=== PATIENT | male | born 1945 | race Caucasian/White ===

== ENCOUNTER 2019-06-05 19:55 | Observation (INO) | payer MEDICARE, MEDICAID, SELFPAY ==
[2019-06-05] VITALS (9 sets, daily range): BP systolic 128–157; BP diastolic 84–106; PULSE 72–150; RESP 18–26; TEMP 37; O2SAT 90–100; BMI 25.8
--- NOTE | 2019-06-05 19:58 | ED_ITS ---
Entered by Barbara Dillard, acting as scribe for Tania Buck MD HPI - SOB/Dyspnea General: Chief Complaint: Shortness of Breath/Dyspnea Stated Complaint: SOB/ HERNIA Time Seen by Provider: 06/05/19 19:57 Source: patient and EMS Mode of arrival: EMS History of Present Illness: HPI Narrative: 73 y/o male presents to the ED with complaint of SOB. Pt states he has a hx of COPD and is a current smoker. He has CPAP and home O2 that he is supposed to wear at night, but he has not been to see a physician for a while; his previous PCP retired. Pt is also complaint of abdominal pain. Upon exam, pt has a large abd hernia to the left of his umbilicus. MD elicited complaint: shortness of breath Pertinent past history: COPD Timing: constant Severity: similar to previous episodes Exacerbating factors: coughing and deep breaths Known history of: COPD Associated symptoms: Reports abdominal pain; Deny chest pain, fever(s), nausea or vomiting Related Data: Home oxygen amount: as needed at night Review of Systems Const: Denies: fever, chills, body aches or change in appetite Eyes: Denies: blurry vision or eye discomfort ENMT: Denies: throat pain or dental pain Card: Denies: chest pain Resp: Reports: shortness of breath GI: Reports: abdominal pain; Denies: nausea, vomiting or diarrhea : Denies: painful urination Musc: Denies: neck pain or back pain Skin/Breast: Denies: rash Neuro: Denies: headache Psych: Denies: depression Juan C/Lymph: Denies: easy bruising All/Imm: Denies: hives [facility] ED PFSH: Medical History (Updated 06/05/19 @ 23:10 by Tania Buck MD) A-fib Back pain COPD (chronic obstructive pulmonary disease) Coronary artery disease GERD (gastroesophageal reflux disease) Hypertension Insomnia Surgical History (Updated 06/05/19 @ 23:05 by Michael Rojas MD) H/O laminectomy History of carpal tunnel surgery History of cholecystectomy S/P laparoscopic appendectomy Family History (Updated 06/05/19 @ 23:05 by Michael Rojas MD) Other Hypertension Social History (Updated 06/05/19 @ 23:06 by Michael Rojas MD) Smoking and tobacco status: current every day smoker Alcohol intake: never Substance/Drug Use: never Lives independently: Yes Housing: House Physical Exam Const: COMMON NORMALS: oriented x3 HENMT: COMMON NORMALS: normocephalic and head/scalp atraumatic HEAD & SCALP: normocephalic and atraumatic Eye: COMMON NORMALS: PERRL and EOMs intact bilaterally PUPIL: Yes PERRL Neck/C-Spine: COMMON NORMALS: full ROM and supple Chest: COMMONS NORMALS: inspection of chest normal and palpation of chest normal Resp: COMMON NORMALS: no retractions and no use of accessory muscles AUSCULTATION: wheezes (diffuse) Cardio: COMMON NORMALS: no murmurs RATE: tachycardic RHYTHM: abnormal rhythm GI: COMMON NORMALS: soft to palpation PALPATION: Yes soft, Yes tender and Yes hernia (reducible ) Extremity: COMMON NORMALS: normal to inspection and full ROM Neuro: COMMON NORMALS: oriented x3, moves all extremities and no focal motor deficits Psych: COMMON NORMALS: mental status grossly normal, thought process normal and cooperative THOUGHT PROCESS: normal thought process Skin: COMMON NORMALS: no rashes or lesions noted and no wounds GENERAL SKIN EXAM: no rashes or lesions noted Course Vital Signs: Vital signs: Vital Signs Temperature 98.6 F 06/05/19 19:56 Pulse Rate 75 06/05/19 21:00 Respiratory Rate 20 H 06/05/19 21:30 Blood Pressure 128/86 06/05/19 21:00 Pulse Oximetry 100 06/05/19 21:00 MDM - SOB/Dyspnea MDM Narrative: Medical decision making narrative: Robert presents here with COPD exacerbation. He is improved after breathing treatments but still requires 2 L of oxygen. Patient was in A. fib with RVR when he arrived here likely from breathing treatments. Patient converted back to normal sinus rhythm with Cardizem. I spoke to hospitalist and will admit for COPD exacerbation. Patient has no signs of pneumonia here. He does have a rather large hernia but has no signs of incarceration. Patient has no signs small bowel obstruction. Lab Data: Labs: Lab Results 06/05/19 06/05/19 Range/Units 20:08 20:08 WBC 13.3 H (4.0-10.0) 10^3/ uL RBC 3.92 L (4.1-5.3) 10^6/u L Hgb 13.6 (11.7-16.6) g/dL Hct 40.6 L (42.0-52.0) % MCV 103.6 H (80-94) fL MCH 34.7 H (28.0-34.0) pg MCHC 33.5 (30.0-36.0) g/dL RDW 14.5 (12.1-15.1) % Plt Count 180 (130-400) 10^3/c mm MPV 11.2 H (7.4-10.4) fL Neut % (Auto) 79.0 % Lymph % (Auto) 13.2 % Mineral % (Auto) 6.6 % Eos % (Auto) 0.5 % Baso % (Auto) 0.4 % Neut # (Auto) 10.5 H (1.8-7.7) 10^3/u L Lymph # (Auto) 1.8 (0.8-4.8) 10^3/u L Mineral # (Auto) 0.9 (0.2-0.9) 10^3/u L Eos # (Auto) 0.1 (0.0-0.8) 10^3/u L Baso # (Auto) 0.1 (0.0-0.1) 10^3/u L Nucleated RBC % (a uto) 0 % Nucleated RBCs # 0.0 /100WBC Sodium 134 L (136-145) mmol/L Potassium 4.2 (3.5-5.1) mmol/L Chloride 98 (98-107) mmol/L Carbon Dioxide 25 (22-29) mmol/L Anion Gap 15.2 (5-19) BUN 19 (8-23) mg/dL Creatinine 0.8 (0.7-1.2) mg/dL Glucose 162 H (65-115) mg/dL Calcium 8.8 (8.5-10.5) mg/dL Total Bilirubin 0.7 (0.15-1.2) mg/dL AST 158 H (0-40) U/L ALT 140 H (0-41) U/L Alkaline Phosphata se 160 H (40-130) IU/L Total Protein 8.4 (6.6-8.7) g/dL Albumin 2.6 L (3.5-5.2) g/dL Globulin 5.8 H (1.3-4.6) g/dL Imaging Data^: CXR: Attestation: I personally reviewed and interpreted this imaging study as follows: My impression: no acute abnormality EKG Data^: EKG 1: Attestation: I personally reviewed and interpreted this EKG as follows: EKG Interpretation Date: 06/05/19 EKG interpretation time: 20:12 Interpretation: afib hr [address] or t wave abnormalities EKG 2: Attestation: I personally reviewed and interpreted this EKG as follows: EKG Interpretation Date: 06/05/19 EKG interpretation time: 23:13 Interpretation: nsr hr [address] or t wave abnormalities qrs 86 qtc 422 Discharge Plan Discharge Patient Disposition: Admitted As Inpatient Clinical Impression: Acute exacerbation of chronic obstructive airways disease Atrial fibrillation Qualifiers: Atrial fibrillation type: unspecified Qualified Code(s): I48.91 - Unspecified atrial fibrillation Condition: Stable Referrals: Jno Lange MD [Family Provider] - Coding Level of Care Code ED [facility] F[facility] Specialist for Chg Fwd Exam Comprehensive The documentation recorded by the Nishant hughes Ashley, accurately reflects the service I personally performed and the decisions made by , Tania Buck MD Jun 05, 2019 19:55
--- NOTE | 2019-06-05 20:02 | XR_ITS ---
WS: [id number] XR chest 1V portable [id number] REASON FOR EXAM: cough FINDINGS: Elevation of the right hemidiaphragm similar to previous exam of May 28, 2017. The heart and mediastinal interfaces were normal. The lung quintana are adequately aerated. No pneumonia, pleural effusion, pulmonary edema, The hilum is and apices are normal. Left and right shoulder show degenerate changes. XR/XR chest 1V portable [id number] IMPRESSION: Negative chest for active pathology.
--- NOTE | 2019-06-05 20:02 | ECG_ITS ---
Measurements Intervals [place] Rate: 157 P: CO: 0 QRS: 58 QRSD: 86 T: 65 QT: 272 QTc: 441 ATRIAL FIBRILLATION WITH RAPID VENTRICULAR RESPONSE NONSPECIFIC ST & T-WAVE ABNORMALITY Compared to ECG 05/26/2017 20:49:57 T-wave abnormality now present Sinus rhythm no longer present Left-axis deviation no longer present Incomplete right bundle-branch block no longer present Electronically Signed On 06-06-2019 15:31:53 SUPERVISING [employer] by Maggie Squires M.D. [email or web address]
[2019-06-05 20:15] LABS: Basophils # 0.1 10^3/uL (0.0-0.1); Basophils % 0.4 %; Eosinophils # 0.1 10^3/uL (0.0-0.8); Eosinophils % 0.5 %; Hematocrit 40.6 % (42.0-52.0); Hemoglobin 13.6 g/dL (11.7-16.6); Lymphocytes # 1.8 10^3/uL (0.8-4.8); Lymphocytes % 13.2 %; Mean Corpuscular HGB Conc 33.5 g/dL (30.0-36.0); Mean Corpuscular Hemoglobin 34.7 pg (28.0-34.0); Mean Corpuscular Volume 103.6 fL (80-94); Mean Platelet Volume 11.2 fL (7.4-10.4); Monocytes # 0.9 10^3/uL (0.2-0.9); Monocytes % 6.6 %; Neutrophils # 10.5 10^3/uL (1.8-7.7); Nucleated Red Blood Cells % 0 %; Platelet Count 180 10^3/cmm (130-400); Red Blood Count 3.92 10^6/uL (4.1-5.3); Red Cell Distribution Width 14.5 % (12.1-15.1); White Blood Count 13.3 10^3/uL (4.0-10.0)
[2019-06-05] MEDS: ondansetron 2 mg/ML SDV 2 mL 4 MG IVP (20:16)
[2019-06-05] MEDS: morphine 4 mg/mL SDV 1 mL IVP ×2 (20:16→21:30)
[2019-06-05] MEDS: sodium chloride 0.9% 1,000 ML 999 ML IV (20:17)
[2019-06-05 20:30] LABS: Alanine Aminotransferase 140 U/L (0-41); Albumin Level 2.6 g/dL (3.5-5.2); Alkaline Phosphatase 160 IU/L (40-130); Anion Gap 15.2 (5-19); Aspartate Amino Transferase 158 U/L (0-40); Blood Urea Nitrogen 19 mg/dL (8-23); Calcium 8.8 mg/dL (8.5-10.5); Carbon Dioxide 25 mmol/L (22-29); Chloride 98 mmol/L (98-107); Globulin 5.8 g/dL (1.3-4.6); Glucose 162 mg/dL (65-115); Potassium 4.2 mmol/L (3.5-5.1); Sodium 134 mmol/L (136-145); Total Bilirubin 0.7 mg/dL (0.15-1.2); Total Protein 8.4 g/dL (6.6-8.7)
--- NOTE | 2019-06-05 21:26 | CTR_ITS ---
PROCEDURE INFORMATION: Exam: CT Abdomen And Pelvis With Contrast Exam date and time: 06/05/2019 9:31 PM Age: 73 years old Clinical indication: Other: Hernia; Abdominal pain; Prior surgery; Surgery type: Appy, hip, back; Additional info: Abd pain TECHNIQUE: Imaging protocol: Computed tomography of the abdomen and pelvis with intravenous contrast. Total DLP: 1090.03 mGy-cm Radiation optimization: All CT scans at this facility use at least one of these dose optimization techniques: automated exposure control; mA and/or kV adjustment per patient size (includes targeted exams where dose is matched to clinical indication); or iterative reconstruction. Contrast material: OMNI 300; Contrast volume: 95 ml; Contrast route: IV; COMPARISON: CT abdomen pelvis w con* [id number] 03/26/2015 2:19 PM FINDINGS: Lungs: There is a background of centrilobular emphysema. Patchy opacities are seen in the right posterior costophrenic recess likely representing atelectasis and/or parenchymal and pleural scarring. A superimposed right basilar infiltrate cannot be entirely excluded. Liver: There is a 9 mm hypoattenuation lesions seen in the left hepatic lobe laterally and a 6 mm hypoattenuation lesions seen in the posterior segment of the right hepatic lobe likely representing small cysts or hemangiomas. Gallbladder and bile ducts: Status post cholecystectomy. Common bile duct measures 11 mm in its midportion tapering to normal caliber within the pancreas. Pancreas: Normal. No ductal dilation. Spleen: Normal. No splenomegaly. Adrenals: There is a left adrenal mass present measuring 3.9 x 2.4 x 4.2 cm. This appears stable compared with 03/26/2015. Kidneys and ureters: There are 2 tiny hypoattenuation cystic lesions seen within the right kidney, the largest measuring 7 mm anteriorly. A more prominent cyst is seen on the posterior aspect of the left kidney measuring 2.5 cm. These likely represent simple cysts. Stomach and bowel: There is a large left paraumbilical hernia containing a loop of non incarcerated small bowel. However, there is some mild dilatation of the small bowel and a partial small bowel obstruction cannot be entirely excluded. Appendix: Status post appendectomy. Intraperitoneal space: Unremarkable. No free air. No significant fluid collection. Vasculature: Calcifications are seen within the thoracic and abdominal aorta, iliac and femoral arteries bilaterally. Lymph nodes: There are small retroperitoneal lymph nodes seen that appear below CT criteria for lymphadenopathy. Bladder: Unremarkable as visualized. Reproductive: Unremarkable as visualized. Bones/joints: Status post bipolar right hip replacement. Diffuse loss of disc height is seen within the thoracolumbar spine compatible with degenerative disc disease. Vacuum disc phenomena extends from L1 through L4. The patient is status post PLIF at the L4-L5 level. Prominent anterior osteophytes are seen extending from L1 through S1 as well. Soft tissues: Unremarkable. CT/CT abdomen pelvis w con* [id number] IMPRESSION: 1. There is a prominent left paraumbilical hernia containing a loop of small bowel. There is some dilatation of the small bowel and a partial small bowel obstruction cannot be excluded. 2. Stable left adrenal mass compared with 03/26/2015. No follow-up is needed. 3. Bilateral simple appearing renal cysts, the largest seen on the left measuring 2.5 cm. No further workup needed. 4. There are small retroperitoneal lymph nodes seen that appear below CT criteria for lymphadenopathy. 5. Background of centrilobular emphysema. Opacity seen in the right posterior costophrenic recess may represent atelectasis or parenchymal or pleural scarring although a superimposed basilar infiltrate cannot be entirely excluded. Radiation Dose CTDIVOL = (mGy): DLP = 1090.03 (mGy-cm)
--- NOTE | 2019-06-05 21:31 | PC.PHAR ---
PT STATES HE BROUGHT IN THE BOTTLES OF MEDICATIONS HE TAKES-PT STATES HE THINKS THERE IS ANOTHER MEDICATION FOR HIS HEART/BP BUT CANT REMEMBER WHAT IT IS. SOME OF THE PTS BOTTLES WERE DATES FROM LAST YEAR. [facility] WAS CLOSED SO NO WAY TO VERIFY MEDICATIONS -NO MEDS PULLED UP FROM THE EXTERNAL MED HISTORY.
[2019-06-05] MEDS: iohexol 300 mg/mL 100 mL Btl 95 ML IV (21:50)
--- NOTE | 2019-06-05 22:57 | ECG_ITS ---
Measurements Intervals [place] Rate: 72 P: 23 NC: 184 QRS: 40 QRSD: 86 T: 67 QT: 398 QTc: 437 SINUS RHYTHM Compared to ECG 05/26/2017 20:49:57 Left-axis deviation no longer present Incomplete right bundle-branch block no longer present Electronically Signed On 06-06-2019 15:28:20 [employer]OR [employer] CHASSIS INSPECTOR by Maggie Squires M.D. [email or web address]
--- NOTE | 2019-06-05 23:02 | P.HP_ITS ---
Providers/Chief Complaint Chief Complaint: SOB/ HERNIA History of Present Illness Robert Torres is a 73 year old male who has a history of noncompliance, active smoker, COPD, paraumbilical hernia here in with chief complaint of shortness of breath and abdominal pain. Patient is stating that he has not followed up with Dr. Gomez or his PCP he does not take any medications at home. He smoking half a pack every day. He was in his usual state of health i.e. able to walk using a cane, regular bowel movements, no nausea, vomiting, flulike symptoms until 3 to 4 weeks ago when he started experiencing shortness of breath which has been getting gradually worsening, no it has limited his ambulation in his home he cannot even walk from 1 room to another without getting short of breath, he does not use oxygen at home, shortness of breath is mostly exertional, he also showing some orthopnea and PND, his legs are little bit swollen as well. He does not watch his diet. He is denying previous history of CHF. He is denying use of amlodipine however it is in his previous records. He is also endorsing chest pain on exertion which happens on the left side comes and goes spontaneously. He has not seen Dr. Gomez for his periumbilical hernia, he is saying that swelling size is same but now it hurts sometimes, he has not noticed any fever, jaundice, excruciating abdominal pain, nausea or vomiting but his stool color is pale. Diagnostics in ER showed Atrial fibrillation secondary to DuoNeb treatment given by EMS which resolved with 1 dose of Cardizem currently his heart rate is in 70s, blood pressure stable, He was hypoxic to 90% on room air did well on 2 L nasal cannula Diagnostics are showing possibility for partial obstruction of small bowel Liver enzymes are abnormal with high alkaline phosphatase with normal bilirubin, In ER he has received morphine 4 mg, Zofran, 1 L normal saline, diltiazem 20 mg, Review of Systems Const: Reports: body aches and fatigue; Denies: fever or chills Eyes: Denies: change in vision ENMT: Denies: throat pain Card: Reports: chest pain, irregular heart rhythm, swelling of feet/ankles, shortness of breath on exertion and shortness of breath when lying down; Denies: palpitations Resp: Reports: shortness of breath and non-productive cough GI: Reports: abdominal pain, feeling full early and white/light colored stool; Denies: nausea, vomiting, change in bowel habits or blood in stool : Denies: flank pain Musc: Denies: neck pain Skin/Breast: Denies: rash Neuro: Denies: headache Psych: Denies: anxiety Endo: Denies: excessive urination Juan C/Lymph: Denies: easy bruising All/Imm: Denies: hives Medications/Allergies Home Medications Medication Instructions Recorded Confirmed Last Taken Type Tylenol 1 tab PO PRN 06/05/19 06/05/19 Unknown History albuterol sulfate [ProAir HFA] See Rx Instructions .ROUTE .COMPLEX 06/05/19 06/05/19 Unknown History amlodipine [Norvasc] 5 mg PO BID 06/05/19 06/05/19 Unknown History aspirin [Aspir-81] 81 mg PO DAILY 06/05/19 06/05/19 Unknown History fluticasone propion-salmeterol 2 puff INHALATION BID 06/05/19 06/05/19 Unknown History [Advair Diskus] ibuprofen 1 tab PO PRN 06/05/19 06/05/19 Unknown History nitroglycerin [Nitrostat] 0.4 mg SUBLINGUAL Q5M PRN 06/05/19 06/05/19 Unknown History tiotropium bromide [Spiriva 2 puff INHALATION BID 06/05/19 06/05/19 Unknown History Respimat] trazodone 50 - 100 mg PO BEDTIME PRN 06/05/19 06/05/19 Unknown History Allergies Allergy/AdvReac Type Severity Reaction Status Date / Time No Known Allergies Allergy Verified 06/05/19 20:03 PFSH Acute PFSH: Medical History (Updated 06/05/19 @ 23:10 by Tania Buck MD) A-fib Back pain COPD (chronic obstructive pulmonary disease) Coronary artery disease GERD (gastroesophageal reflux disease) Hypertension Insomnia Surgical History (Updated 06/05/19 @ 23:05 by Michael Rojas MD) H/O laminectomy History of carpal tunnel surgery History of cholecystectomy S/P laparoscopic appendectomy Family History (Updated 06/05/19 @ 23:05 by Michael Rojas MD) Other Hypertension Social History (Updated 06/05/19 @ 23:06 by Michael Rojas MD) Smoking and tobacco status: current every day smoker Alcohol intake: never Substance/Drug Use: never Lives independently: Yes Housing: House Vitals/I&O/Wt Last Vital Signs Temp 98.6 F 06/05/19 19:56 Pulse 75 06/05/19 21:00 Resp 20 H 06/05/19 21:30 BP 128/86 06/05/19 21:00 Pulse Ox 100 06/05/19 21:00 06/05/19 06/05/19 06/06/19 14:59 22:59 06:59 Intake Total 1000 / 1000 Balance 1000 / 1000 Weight last 48 hrs Weight 81.647 kg Physical Exam Narrative: EXAM NARRATIVE: This is an elderly male with unkempt appearance, po or hygiene Sitting comfortable in his bed saturating well on 2 L nasal cannula Variable S1-S2, positive JVD with mild trace edema bilateral lower extremities Lungs auscultation reveals expiratory wheezing bilaterally with adequate breath sounds No active respiratory distress Abdomen soft nontender periumbilical hernia which is reproducible no excruciating pain on palpation, on auscultation it reveals tinkling sounds Sclerae nonicteric but it was examined under room light Tongue color is normal Lower extremity trace edema 1+ bilaterally Appropriate mood and affect Data : 06/05/19 20:08 06/05/19 20:08 A&P Assessment and plan (1) Acute exacerbation of chronic obstructive airways disease: Status: Acute Code(s): J44.1 - Chronic obstructive pulmonary disease with (acute) exacerbation (2) Atrial fibrillation: Status: Acute Qualifiers: Atrial fibrillation type: unspecified Qualified Code(s): I48.91 - Unspecified atrial fibrillation Code(s): I48.91 - Unspecified atrial fibrillation Additional A&P Information Acute exacerbation of COPD secondary to smoking We will use Xopenex and ipratropium to avoid tachyarrhythmia Prednisone 40 mg Patient was counseled on quitting smoking, Nicotine patch Would use azithromycin, pneumonia severity index very low no need of sputum or blood culture Considering positive JVD and bilateral lower extremity edema I will check BNP, he does not carry previous history of CHF Atrial fibrillation: Not on anticoagulation due to noncompliance I would start him on Cardizem and Eliquis Abnormal transaminases with high alkaline phosphatase No fever, jaundice positive abdominal pain which is around her umbilical region Close monitoring for any signs and symptoms for cholangitis Patient has light-colored stool We will check for hepatitis panel paraUmbilical hernia CT scan show some concerns for partial obstruction however clinically patient does not show such picture Abdomen is soft, hernia is reproducible, nontender No active signs of strangulation or gangrene Closely monitor with serial exam, He was supposed to follow-up with Dr. Gomez on outpatient settings Pending consider this consult during his stay in the hospital because he has a history of noncompliance and not following up with the physicians Active smoker: Smokes half pack a day, nicotine patch Hypodense lesion 9 mm on liver Close monitoring with ultrasound every 6 months Patient is endorsing weight loss Full code Cardiac diet DVT prophylaxis: Currently he is on Eliquis Attestations Medical Necessity Statement*: Anticipating discharge less than 48 hours if his breathing gets better Time Spent in Patient Care: 45 Coding Level of Care Code Acute Supervisor Cutting And Sewing Room for Chg Fwd Diagnoses Acute exacerbation of chronic obstructive airways disease J44.1 Atrial fibrillation I48.91 Atrial fibrillation type: unspecified
--- NOTE | 2019-06-05 23:53 | PC.NURSE ---
Called report to Ary on Med/Surg
[2019-06-06] VITALS (19 sets, daily range): BP systolic 146–210; BP diastolic 67–108; PULSE 66–108; RESP 16–21; TEMP 36.3–37; O2SAT 90–98
[2019-06-06 00:52] LABS: NT Pro B Type Natriuretic Pept 5946 pg/mL (0-125)
[2019-06-06] MEDS: dilTIAZem ER (24HR) 120 mg Capsule PO ×2 (01:47→08:57)
[2019-06-06] MEDS: morphine IR 15 mg Tablet PO ×3 (01:47→15:16)
[2019-06-06] MEDS: trazodone 50 mg Tablet PO (01:48)
[2019-06-06] MEDS: ipratropium 0.5 mg/2.5 mL Neb 0.25 MG INHALATION ×4 (01:53→19:36)
[2019-06-06] MEDS: levalbuterol 0.63 mg/3 mL Neb INHALATION ×4 (01:54→19:36)
[2019-06-06 03:43] LABS: Hepatitis B Surface Antigen. Non-Reactive (Nonreactive)
[2019-06-06 04:39] LABS: Hepatitis C Virus Antibody Reactive (Nonreactive)
[2019-06-06 05:52] LABS: Basophils % 0.2 %; Hematocrit 37.2 % (42.0-52.0); Hemoglobin 12.4 g/dL (11.7-16.6); Lymphocytes # 1.3 10^3/uL (0.8-4.8); Lymphocytes % 11.3 %; Mean Corpuscular HGB Conc 33.3 g/dL (30.0-36.0); Mean Corpuscular Hemoglobin 36.8 pg (28.0-34.0); Mean Corpuscular Volume 110.4 fL (80-94); Mean Platelet Volume 11.2 fL (7.4-10.4); Monocytes # 0.3 10^3/uL (0.2-0.9); Monocytes % 2.4 %; Neutrophils # 9.6 10^3/uL (1.8-7.7); Neutrophils % 85.5 %; Nucleated Red Blood Cells % 0 %; Platelet Count 172 10^3/cmm (130-400); Red Blood Count 3.37 10^6/uL (4.1-5.3); Red Cell Distribution Width 14.5 % (12.1-15.1); White Blood Count 11.2 10^3/uL (4.0-10.0)
[2019-06-06 06:23] LABS: Alanine Aminotransferase 116 U/L (0-41); Albumin Level 2.4 g/dL (3.5-5.2); Alkaline Phosphatase 140 IU/L (40-130); Anion Gap 11.6 (5-19); Aspartate Amino Transferase 114 U/L (0-40); Blood Urea Nitrogen 19 mg/dL (8-23); Calcium 8.5 mg/dL (8.5-10.5); Carbon Dioxide 25 mmol/L (22-29); Chloride 99 mmol/L (98-107); Globulin 5.7 g/dL (1.3-4.6); Glucose 135 mg/dL (65-115); Potassium 4.6 mmol/L (3.5-5.1); Sodium 131 mmol/L (136-145); Total Bilirubin 0.5 mg/dL (0.15-1.2); Total Protein 8.1 g/dL (6.6-8.7)
[2019-06-06] MEDS: nicotine 14 mg Patch 1 PATCH TRANSDERMA (08:56)
[2019-06-06] MEDS: azithromycin 250 mg Tablet PO (08:57)
[2019-06-06] MEDS: apixaban 5 mg Tablet PO ×2 (08:57→20:24)
[2019-06-06] MEDS: predniSONE 20 mg Tablet 40 MG PO (08:57)
[2019-06-06] MEDS: aspirin 81 mg EC Tablet PO (08:57)
--- NOTE | 2019-06-06 12:30 | PC.RESP ---
Patient given information on Pulmonary Rehab and Smoking Cessation.
--- NOTE | 2019-06-06 13:25 | PC.CHAP ---
Pastoral Care Encounter/Spiritual Assessment Type of Contact [] Declined film cutter visit [] Patient/Family/Request visit [] Outpatient visit [] Follow-up visit [] Physician referral [] Code/Alert [x] Routine visit [] Staff referral [] Actively dying [] Patient sleeping [] Family support [] [] Out of room [] Palliative care [] [] Receiving care in room [] Pre-surgical visit [] Trauma [] Long length of stay [] ICU visit [] Other: Relational/Emotional Strength [] Patient feels connected with others/family/visitors/staff [] Distress [] Loneliness/isolation [] Abandonment Spirituality of Patient [x] Person of Karen [] Attends Congregational of their Karen [] Believes in Prayer [] Reads Bible or Anglican materials [] There are Spiritual issues to be addressed Sterile Proc Tech Interventions [x] Prayer x[] Active listening [x] Non-anxious presence [] Spiritual/emotional support [] Crisis/trauma care [] Spiritual counseling [] Bereavement support [] Provided bereavement packet [] Provided Bible/devotional materials [] Provided toy/stuffed animal, coloring book to patient or family member [] Provided Communion [] Anointing/[place] [] Salvation []x Completed spiritual assessment [] Other: Impact on Illness or Injury [] Angry [] Fearful [] Anxious [] Often cries [] Exhaustion [] Unable to work [] Unable to attend buddhist [] Unable to walk/stand [] Unable to read [] Unable to drive [] Unable to eat/drink [] Unable to sleep [] Unable to be with family [] Patient intubated [] Other: Summary patient feeling better Time spent with patient 1 visitor 10 min
[2019-06-06 16:22] LABS: Lipase 39 U/L (13-60)
--- NOTE | 2019-06-06 16:44 | PM.CONSULT ---
Providers/Reason For Consult Consulting Physican/Specialty*: Pola Valerio Reason for Consult*: Incisional hernia Attending Physician: Pola Valerio Primary Care Provider: DOCTOR NOT ON FILE History of Present Illness History of Present Illness Robert Torres is a 73 year old male with previously undergone a laparoscopic appendectomy followed by exploratory laparotomy due to enterotomy few years prior. I had seen him in my office few years ago with incisional hernia which at that point he did not want fixed. Over the last few years he is continued to smoke though he states that she is down to smoking half a pack from 2 packs of cigarettes a day. He presented to the ER with shortness of breath and was diagnosed with COPD exacerbation. Patient denies any nausea vomiting constipation though he states that the hernia is getting more painful Review of Systems General: Reports: 10 or more systems reviewed and unremarkable except in HPI and below Meds/Allergies Home Medications and Allergies Home Medications Medication Instructions Recorded Confirmed Type Tylenol 1 tab PO PRN 06/05/19 06/05/19 History albuterol sulfate [ProAir HFA] See Rx Instructions .ROUTE .COMPLEX 06/05/19 06/05/19 History amlodipine [Norvasc] 5 mg PO BID 06/05/19 06/05/19 History aspirin [Aspir-81] 81 mg PO DAILY 06/05/19 06/05/19 History fluticasone propion-salmeterol 2 puff INHALATION BID 06/05/19 06/05/19 History [Advair Diskus] ibuprofen 1 tab PO PRN 06/05/19 06/05/19 History nitroglycerin [Nitrostat] 0.4 mg SUBLINGUAL Q5M PRN 06/05/19 06/05/19 History tiotropium bromide [Spiriva 2 puff INHALATION BID 06/05/19 06/05/19 History Respimat] trazodone 50 - 100 mg PO BEDTIME PRN 06/05/19 06/05/19 History Allergies Allergy/AdvReac Type Severity Reaction Status Date / Time No Known Allergies Allergy Verified 06/05/19 20:03 Current Medications Current Medications Generic Name Dose Route Start Last Admin Trade Name Freq PRN Reason Stop Dose Admin Apixaban 5 mg 06/06/19 09:00 06/06/19 08:57 Eliquis PO 5 mg BID DONN Administration Aspirin 81 mg 06/06/19 09:00 06/06/19 08:57 Aspirin Ec PO 81 mg DAILY DONN Administration Azithromycin 250 mg 06/06/19 09:00 06/06/19 08:57 Zithromax PO 250 mg DAILY DONN Administration Protocol Diltiazem HCl 120 mg 06/06/19 09:00 06/06/19 08:57 Cardizem Cd (24hr) PO 120 mg DAILY DONN Administration Ipratropium [place] 0.25 mg 06/06/19 00:33 06/06/19 14:57 Atrovent Neb INHALATION 0.25 mg Q6H.RESPIRATORY PRN Administration sob Levalbuterol HCl 0.63 mg 06/06/19 00:33 06/06/19 14:56 Xopenex INHALATION 0.63 mg Q6H.RESPIRATORY PRN Administration sob Morphine Sulfate 15 mg 06/06/19 01:21 06/06/19 15:16 Msir PO 15 mg Q4H PRN Administration SEVERE PAIN Nicotine 1 patch 06/06/19 09:00 06/06/19 08:56 Nicoderm 14 Mg Patch TRANSDERMA 1 patch DAILY DONN Administration Prednisone 40 mg 06/06/19 09:00 06/06/19 08:57 Prednisone PO 40 mg DAILY DONN Administration Trazodone HCl 50 - 100 mg 06/06/19 00:33 06/06/19 01:48 Desyrel PO 50 mg BEDTIME PRN Administration SLEEP PFSH Acute PFSH: Medical History A-fib Back pain COPD (chronic obstructive pulmonary disease) Coronary artery disease GERD (gastroesophageal reflux disease) Hypertension Incisional hernia Insomnia Surgical History H/O exploratory laparotomy H/O laminectomy History of carpal tunnel surgery History of cholecystectomy S/P laparoscopic appendectomy Family History Other Hypertension Social History Smoking and tobacco status: current every day smoker Alcohol intake: never Substance/Drug Use: never Lives independently: Yes Housing: House Vitals/I&O/Wt Last Vital Signs Temp 97.3 F L 06/06/19 12:00 Pulse 79 03/06/20 15:06 Resp 18 06/06/19 15:16 BP 156/98 06/06/19 12:00 Pulse Ox 95 06/06/19 15:00 06/06/19 06/06/19 06/06/19 06:59 14:59 22:59 Intake Total 360 / 360 Output Total 575 / 575 Balance -575 / 425 360 / 360 Weight last 48 hrs Weight 180 lb Physical Exam Narrative: EXAM NARRATIVE: HEENT: Normocephalic Eye: Sclera /conjunctiva normal Respiratory and chest: Bilateral clear breath sounds on auscultation Cardiovascular: Normal S1 and S2 heart sounds Abdomen: Soft to palpation, reducible incisional hernia, minimally tender well-healed laparotomy scar Neurological: Oriented to place person and time Skin: Intact, no lesions appreciated on gross exam A&P Assessment and plan (1) Incisional hernia: 73-year-old gentleman, smoker with COPD who has reducible incisional hernia which is getting more symptomatic. The hernia defect itself measures about 8 x [address] of his abdomen and pelvis. Discussed treatment options with the patient. He is due to be discharged home tomorrow I have advised that he follow-up in clinic for further work-up. 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
--- NOTE | 2019-06-06 20:52 | PM.PN ---
Subjective Subjective: Interval history: Intermittent pain at the site of hernia. No vomiting. Vitals/I&O/Wt Last Vital Signs Temp 98.4 F 06/06/19 19:32 Pulse 99 06/06/19 19:44 Resp 20 H 06/06/19 19:44 BP 210/108 06/06/19 19:33 Pulse Ox 96 06/06/19 19:44 06/06/19 06/06/19 06/06/19 06:59 14:59 22:59 Intake Total 360 / 360 240 / 600 Output Total 575 / 575 Balance -575 / 425 360 / 360 240 / 600 Weight last 48 hrs Weight 81.647 kg Physical Exam Const: COMMON NORMALS: no apparent distress and oriented x3 HENMT: COMMON NORMALS: oropharynx normal Neck/C-Spine: COMMON NORMALS: no JVD Resp: COMMON NORMALS: normal respiratory effort and clear to auscultation bilaterally AUSCULTATION: clear to auscultation bilaterally Cardio: COMMON NORMALS: no JVD, regular rhythm, S1 normal heart sound, S2 normal heart sound and no murmurs RHYTHM: regular rhythm HEART SOUNDS: S1 normal and S2 normal GI: COMMON NORMALS: soft to palpation PALPATION: Yes soft OTHER: Large periumbilical hernia Extremity: COMMON NORMALS: no joint enlargement and no pedal edema Neuro: COMMON NORMALS: oriented x3 and moves all extremities Skin: COMMON NORMALS: no rashes or lesions noted GENERAL SKIN EXAM: no rashes or lesions noted Data : 06/06/19 04:55 06/06/19 04:55 A&P Assessment and plan (1) Hepatitis: With transaminitis, alk phos elevation. T bili is normal. He is having pain in his hernia, but no upper quadrant pain. Status post cholecystectomy. CBD 11 mm without stone on CT. Suspect this due to prior surgery. Assess abdominal ultrasound. He did test positive for hepatitis C. Prior studies back in 2013 were negative. Will check for hepatitis A. He is not sure how he may have acquired hepatitis C. In the past had test positive for marijuana with otherwise unremarkable drug screen back in 2011. He thinks he may have gotten it from his who may have had hepatitis. May benefit from follow-up with gastroenterology or Dr. Santo in [facility]. Discussed with him. He verbalized understanding. Discussed with him on precautions to prevent transmission. Reassess liver parameters and ultrasound tomorrow. If stable, may return home with outpatient follow-up. Status: Acute Code(s): K75.9 - Inflammatory liver disease, unspecified (2) Acute exacerbation of chronic obstructive airways disease: Improving. Currently down to room air. Continue nebulization, steroid, antibiotic. Status: Acute Code(s): J44.1 - Chronic obstructive pulmonary disease with (acute) exacerbation (3) Atrial fibrillation: Heart rate in the 90s. Continue Eliquis. Cardizem. Status: Acute Qualifiers: Atrial fibrillation type: unspecified Qualified Code(s): I48.91 - Unspecified atrial fibrillation Code(s): I48.91 - Unspecified atrial fibrillation (4) Periumbilical hernia: Appreciate surgical assessment. Status: Acute Code(s): K42.9 - Umbilical hernia without obstruction or gangrene Additional A&P Information Elevated BNP: Without sign of heart failure. Elevated TR peak velocity on TTE 2016. Suspect pulmonary hypertension. Will repeat echocardiography. Active smoker: Continue to encourage cessation. Hypodense lesion 9 mm on liver Close monitoring with ultrasound every 6 months Attestations Medical Necessity Statement*: Continue observation for reassessment of liver parameters, oxygenation, arrangements for discharge. 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
[2019-06-06 21:12] LABS: Hepatitis A Antibody IgM. Non-Reactive (Nonreactive)
[2019-06-06] MEDS: hyDRALAzine 20 mg/mL INJ 1 mL 5 MG IVP (22:12)
[2019-06-07] VITALS (19 sets, daily range): BP systolic 150–186; BP diastolic 80–97; PULSE 70–130; RESP 18–32; TEMP 36.3–36.8; O2SAT 85–99
[2019-06-07] MEDS: morphine IR 15 mg Tablet PO ×4 (01:04→19:39)
--- NOTE | 2019-06-07 02:00 | PC.NURSE ---
Patient states that he feels like he is having trouble breathing at this time. Called respiratory for his breathing treatment. Patient has increased work of breathing with bilateral posterior expiratory wheezing. Patient currently has is oxygen in his mouth on 2 liters NC. Stat is 95%.
[2019-06-07] MEDS: ipratropium 0.5 mg/2.5 mL Neb 0.25 MG INHALATION ×3 (02:18→14:05)
[2019-06-07] MEDS: levalbuterol 0.63 mg/3 mL Neb INHALATION ×4 (02:18→14:05)
[2019-06-07] MEDS: trazodone 50 mg Tablet PO (03:30)
[2019-06-07 06:10] LABS: Basophils % 0.1 %; Hemoglobin 13.3 g/dL (11.7-16.6); Lymphocytes # 2.5 10^3/uL (0.8-4.8); Lymphocytes % 9.9 %; Mean Corpuscular HGB Conc 32.4 g/dL (30.0-36.0); Mean Corpuscular Hemoglobin 36.3 pg (28.0-34.0); Mean Platelet Volume 10.7 fL (7.4-10.4); Monocytes # 2.6 10^3/uL (0.2-0.9); Monocytes % 10.2 %; Neutrophils # 20.3 10^3/uL (1.8-7.7); Neutrophils % 78.9 %; Nucleated Red Blood Cells % 0 %; Platelet Count 257 10^3/cmm (130-400); Red Blood Count 3.66 10^6/uL (4.1-5.3); Red Cell Distribution Width 14.6 % (12.1-15.1); White Blood Count 25.8 10^3/uL (4.0-10.0)
[2019-06-07 06:30] LABS: Alanine Aminotransferase 117 U/L (0-41); Alkaline Phosphatase 155 IU/L (40-130); Aspartate Amino Transferase 104 U/L (0-40); Blood Urea Nitrogen 37 mg/dL (8-23); Calcium 9.3 mg/dL (8.5-10.5); Carbon Dioxide 24 mmol/L (22-29); Chloride 95 mmol/L (98-107); Creatinine Clr Calc Pharmacy 72.2111; Globulin 5.7 g/dL (1.3-4.6); Glucose 117 mg/dL (65-115); Sodium 127 mmol/L (136-145); Total Bilirubin 0.5 mg/dL (0.15-1.2); Total Protein 8.7 g/dL (6.6-8.7)
[2019-06-07 07:28] LABS: ABG PCO2 44.8 mmHg (35-45); ABG PH Result 7.36 (7.35-7.45); Arterial Blood Gas Hematocrit 41.3 % (42-52); Base Excess ABG -0.4 mmol/L (-2.0-2.0); Blood Gas Allen Test Pos; Blood Gas Sample Site Brachial, right; Blood Gas Sample Type Arterial; HCO3 ABG 25.3 mmol/L (22-26); Oxygen Device NC
[2019-06-07] MEDS: azithromycin 250 mg Tablet PO (08:30)
[2019-06-07] MEDS: predniSONE 20 mg Tablet 40 MG PO (08:30)
[2019-06-07] MEDS: apixaban 5 mg Tablet PO ×2 (08:30→17:54)
[2019-06-07] MEDS: aspirin 81 mg EC Tablet PO (08:30)
[2019-06-07] MEDS: dilTIAZem ER (24HR) 120 mg Capsule PO (08:30)
[2019-06-07] MEDS: nicotine 14 mg Patch 1 PATCH TRANSDERMA (08:31)
[2019-06-07] MEDS: levofloxacin-dextrose 5 % 750 MG/150 ML PREMIX 150 MG IV (09:11)
[2019-06-07 10:06] LABS: Hepatitis A Antibody Total NON-REACTIVE (NON-REACTIVE)
[2019-06-07] MEDS: ALPRAZolam 0.25 mg Tablet PO (10:09)
--- NOTE | 2019-06-07 15:57 | US_ITS ---
WS: [id number] ABDOMINAL ULTRASOUND LIMITED REASON FOR VISIT: Right upper quadrant - abnormal LFT TECHNIQUE: Grayscale and Doppler ultrasound examination of the abdomen. FINDINGS: Pancreas: Poorly seen due to overriding bowel gas. Abdominal aorta and IVC: Within normal limits. Liver: Liver measures 14.4 cm in length. Fatty infiltration of the liver. Hepatopedal portal circulat ion normal. Gallbladder: Not demonstrated suggest cholecystectomy. Common bile duct measured 0.73 cm. Right kidney: Right kidney measures 10.2 cm x 4.5 cm x 4.9 cm. Right kidney cortex measures 1.4 cm. N o hydronephrosis or stones. US/US abdomen limited [id number] IMPRESSION: Gallbladder not visualized. Fatty infiltration of the liver. Gassy suboptimal exam.
--- NOTE | 2019-06-07 17:13 | PM.DCS ---
Discharge Providers Date of Admission: 06/05/19 22:58 Date of Discharge: June 07, 2019 Attending Provider at Admission: Michael Rojas MD Attending Provider at Discharge: Pola Valerio Primary Care Provider: DOCTOR NOT ON FILE Diagnoses at Discharge Discharge Diagnosis (1) Hepatitis: Status: Acute (2) Acute exacerbation of chronic obstructive airways disease: Status: Acute (3) Atrial fibrillation: Status: Acute Qualifiers: Atrial fibrillation type: unspecified Qualified Code(s): I48.91 - Unspecified atrial fibrillation (4) Periumbilical hernia: Status: Acute Reason for Visit Reason for Visit: Reason For Visit: SOB/ HERNIA Hospital Course Hospital Course: A pleasant 73-year-old gentleman with history of COPD, coronary disease, HTN, A. fib, current smoker, GERD was placed in observation for assessment management of shortness of breath, COPD exacerbation, as well as pain at the abdominal hernia. Initially requiring 2 L of oxygen by nasal cannula, his breathing has gradually been improving, although due to noted patchy opacity in right posterior costophrenic recess with concern for pneumonia will complete a course of antibiotic in addition to a steroid taper. Previously on 2 L of oxygen at night. Home oxygen evaluation obtained prior to discharge. On presentation also with noted liver parameter abnormality, with elevated AST, ALT, alkaline phosphatase, with normal T bili. With history of cholecystectomy, without right upper quadrant pain, with 11 mm CBD and no stones noted on CT abdomen pelvis, without signs of cholecystitis on right upper quadrant ultrasound acute cholecystitis suspicion was low. He was assessed by hepatitis panel, and although previously negative, currently tested positive for hepatitis C antibody. He is not sure how he may have contracted, although is not sure whether he may have gotten it from his . Discussed results with him, and encouraged him to seek follow-up and treatment. We will try to get him seen in office by Dr. Garcia as he expressed he would prefer to stay in town if possible. Right upper quadrant ultrasound shows fatty liver infiltration. He was seen by surgery for abdominal hernia. No urgent surgical intervention was deemed necessary with recommendation for follow-up in clinic as hernia is easily reducible. Please continue to encourage smoking cessation. Physical Exam Const: COMMON NORMALS: no apparent distress and oriented x3 HENMT: COMMON NORMALS: oropharynx normal Neck/C-Spine: COMMON NORMALS: no JVD Resp: COMMON NORMALS: normal respiratory effort and clear to auscultation bilaterally AUSCULTATION: clear to auscultation bilaterally Cardio: COMMON NORMALS: no JVD, regular rhythm, S1 normal heart sound, S2 normal heart sound and no murmurs RHYTHM: regular rhythm HEART SOUNDS: S1 normal and S2 normal GI: COMMON NORMALS: normal to inspection, nondistended, normoactive bowel sounds, soft to palpation and non-tender PALPATION: Yes soft Extremity: COMMON NORMALS: no joint enlargement and no pedal edema Neuro: COMMON NORMALS: oriented x3 and moves all extremities Skin: COMMON NORMALS: no rashes or lesions noted GENERAL SKIN EXAM: no rashes or lesions noted Discharge Data Data Completed and Pending: Completed Studies During Hospitalization Category Date Time Status CT abdomen pelvis w con* [id number] Urge nt Cat Scan 06/05/19 21:26 Completed XR chest 1V negrito ble [id number] Urgent Exams 06/05/19 20:02 Completed US abdomen limite d [id number] Routine Ultrasound 06/07/19 15:57 Completed Pending at discharge Category Date Time Status CV echo complete* [id number] Routine Ultrasound 06/07/19 21:01 Taken Labs from last 24 hours 06/07/19 06/07/19 06/07/19 06:01 06:01 02:58 WBC 25.8 H RBC 3.66 L Hgb 13.3 Hct 41.0 L MCV 112.0 H MCH 36.3 H MCHC 32.4 RDW 14.6 Plt Count 257 MPV 10.7 H Neut % (Auto) 78.9 Lymph % (Auto) 9.9 [place] % (Auto) 10.2 Eos % (Auto) 0.0 Baso % (Auto) 0.1 Neut # (Auto) 20.3 H Lymph # (Auto) 2.5 [place] # (Auto) 2.6 H Eos # (Auto) 0.0 Baso # (Auto) 0.0 Nucleated RBC % (a uto) 0 Nucleated RBCs # 0.0 Specimen Type Arterial Sample Site Brachial, right ABG pH 7.36 ABG pCO2 44.8 ABG pO2 115.0 H ABG HCO3 25.3 ABG Base Excess -0.4 Yannick Test Pos Hematocrit 41.3 L O2 Delivery Device Nc O2 Liters/Min 2.0 Proposal Analyst ID [id number] Sodium 127 L Potassium 5.0 Chloride 95 L Carbon Dioxide 24 Anion Gap 13.0 BUN 37 H Creatinine 1.0 Glucose 117 H Calcium 9.3 Total Bilirubin 0.5 AST 104 H ALT 117 H Alkaline Phosphata se 155 H Total Protein 8.7 Albumin 3.0 L Globulin 5.7 H Hepatitis A IgM Ab Hepatitis A Ab Tot al 06/06/19 04:55 WBC RBC Hgb Hct MCV MCH MCHC RDW Plt Count MPV Neut % (Auto) Lymph % (Auto) [place] % (Auto) Eos % (Auto) Baso % (Auto) Neut # (Auto) Lymph # (Auto) [place] # (Auto) Eos # (Auto) Baso # (Auto) Nucleated RBC % (a uto) Nucleated RBCs # Specimen Type Sample Site ABG pH ABG pCO2 ABG pO2 ABG HCO3 ABG Base Excess Yannick Test Hematocrit O2 Delivery Device O2 Liters/Min Proposal Analyst ID Sodium Potassium Chloride Carbon Dioxide Anion Gap BUN Creatinine Glucose Calcium Total Bilirubin AST ALT Alkaline Phosphata se Total Protein Albumin Globulin Hepatitis A IgM Ab Non-reactive Hepatitis A Ab Tot al Non-reactive Vitals: Last Vital Signs Temp 97.9 F 06/07/19 16:00 Pulse 85 06/07/19 16:00 Resp 20 H 06/07/19 15:54 BP 159/92 06/07/19 16:00 Pulse Ox 94 06/07/19 16:00 Discharge Plan Discharge Patient Disposition: Home, Self-Care Condition: Stable Prescriptions: New Eliquis 5 mg Tablet 5 mg PO BID Qty: 60 RF: 0 diltiazem HCl 120 mg Capsule,Extended Release 24hr 120 mg PO DAILY Qty: 30 RF: 0 nicotine 14 mg/24 hr Patch 24 Hour 1 patch transdermal DAILY Qty: 30 RF: 0 levofloxacin [Levaquin] 750 mg tablet 750 mg PO DAILY 6 Days Qty: 6 RF: 0 prednisone 20 mg tablet See Rx Instructions .ROUTE .COMPLEX Qty: 11 RF: 0 Continued trazodone 50 mg Tablet 50 - 100 mg PO BEDTIME PRN (Reason: SLEEP) RF: 0 Aspir-81 81 mg Tablet,Delayed Release (Dr/Ec) 81 mg PO DAILY RF: 0 Nitrostat 0.4 mg Tablet, Sublingual 0.4 mg SUBLINGUAL Q5M PRN (Reason: Chest Pain) RF: 0 Advair Diskus 100-50 mcg/dose Blister With Device 2 puff INHALATION BID RF: 0 Spiriva Respimat 2.5 mcg/actuation Mist 2 puff INHALATION BID RF: 0 Tylenol 1 tab PO PRN RF: 0 ProAir HFA 90 mcg/actuation Hfa Aerosol Inhaler See Rx Instructions .ROUTE .COMPLEX Qty: 8.5 RF: 0 Discontinued Norvasc 5 mg Tablet 5 mg PO BID RF: 0 ibuprofen 1 tab PO PRN RF: 0 Discharge Orders: Discharge Order (Routine); Ordered 06/07/19 Ordered By: Pola Valerio Referrals: [facility] [Outside] Arsen Garcia MD [Physician] - 4-7 days (PLEASE CALL SUNDAY TO SET UP AN APPOINTMENT TO BE SEEN BY DR. GARCIA TO ESTABLISH CARE FOR HEPATITIS C) Dejon Gomez MD [Physician] - 1 week (PLEASE CALL SUNDAY TO SET UP AN APPOINTMENT WITH DR. GOMEZ. Hernia) Discharge Diet: Cardiac Discharge Activity: Increase activity as tolerated and Oxygen as instructed Activity Restrictions/Additional Instructions: If you experience persistent abdominal pain which does not improve, inability to reduce hernia, experience vomiting, high fever, progressive shortness of breath or other abnormal symptoms please seek medical attention. Please stop smoking. Please establish with a primary care provider and be sure to follow-up regarding hepatitis C additional evaluation and treatment. 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
--- NOTE | 2019-06-07 19:40 | PC.NURSE ---
Patient will be discharged with a bottle of oxygen provided and set up by [facility] to take home with him. Reviewed discharge instructions with patient. Reviewed follow up appointment with Dr. Santo and Dr. Gomez. Informed patient that medications were called into his pharmacy - [facility]. Patient is A&Ox3. Respirations even and non-labored on 2 liters of oxygen via nasal cannula. Patient given pain medication prior to discharge for his 5/10 abdominal pain. Patient pushed via wheel chair to [employer] van. Patient had all of his belongings and a new tank of oxygen.
--- NOTE | 2019-06-07 21:01 | USCV_ITS ---
Robert Torres Age: 73 Gender: M : 1945 Exam Date: 06/07/2019 07:47 Ordering Phys: Pola Valerio MD Technologist: Karolyn Russell Exam Location: [facility] – [place], [place] Indication: Dypsnea BP: 154 / 86 HR: 90 Rhythm: Sinus Technical Quality: Suboptimal MEASUREMENTS (Male / Female) Normal Values 2D ECHO LV Diastolic Diameter PLAX 4.5 cm 4.2 - 5.9 / 3.9 - 5.3 cm LV Systolic Diameter PLAX 3.2 cm LV Chamber Size 4.6 cm IVS Diastolic Thickness 1.5 cm 0.6 - 1.0 / 0.6 - 0.9 cm IVS Systolic Thickness 1.6 cm LVPW Diastolic Thickness 1.5 cm 0.6 - 1.0 / 0.6 - 0.9 cm LVPW Systolic Thickness 2.0 cm RV Chamber Size 2.1 cm LVOT Diameter 2.0 cm LV Ejection Fraction 2D Teich 56.5 % LA Diameter 5.2 cm LA Width 3.8 cm LA Height 4.5 cm RA Width 2.2 cm RA Height 5.6 cm Aorta at Sinotubular Diameter 3.0 cm M-MODE LV Diastolic Diameter MM 5.2 cm 4.2 - 5.9 / 3.9 - 5.3 cm LV Systolic Diameter MM 3.6 cm LV Ejection Fraction MM Teich 57.8 % IVS Diastolic Thickness MM 1.2 cm 0.6 - 1.0 / 0.6 - 0.9 cm IVS Systolic Thickness MM 1.3 cm LVPW Diastolic Thickness MM 1.4 cm 0.6 - 1.0 / 0.6 - 0.9 cm LVPW Systolic Thickness MM 1.8 cm RV Diastolic Diameter MM 2.2 cm Aortic Annulus Diameter 3.5 cm LA Ao Ratio MM 1.5 MV E Point Septal Separation 0.5 cm DOPPLER AV Peak Velocity 241.0 cm/s LVOT Peak Velocity 95.0 cm/s AV Area Cont Eq vti 1.2 cm squared AV Area Cont Eq pk 1.3 cm squared MV Peak Velocity 146.0 cm/s MV Area PHT 5.4 cm squared Mitral E to A Ratio 1.9 MV E' Velocity 7.0 cm/s Mitral E to MV E' Ratio 19.9 Mitral E to LV E' Lateral Ratio 19.9 Mitral E to LV E' Septal Ratio 19.9 TR Peak Velocity 339.0 cm/s TR Peak Gradient 45.9 mmHg TV Peak E Velocity 67.0 cm/s Right Atrial Pressure 3.0 mmHg Pulmonary Artery Systolic Pressu 49.0 mmHg PV Peak Velocity 78.0 cm/s RV Acceleration Time 0.1 s RV Ejection Time 0.3 s RV AcT/ET 0.3 FINDINGS Left Ventricle Normal left ventricular cavity size. Normal left ventricular systolic function. Left ventricular ejection fraction is estimated at 55 %. Grade III/IV diastolic dysfunction (restrictive filling pattern), severely elevated filling pressures. Right Ventricle Normal right ventricular size. Moderate pulmonary hypertension, RVSP 49 mmHg. Right Atrium The right atrium is normal in size. Left Atrium The left atrium is normal in size. Mitral Valve Moderately thickened mitral valve. Severe mitral annular calcification. No mitral valve stenosis. Mild mitral valve regurgitation. Aortic Valve Severe aortic valve calcification. Moderate aortic valve stenosis, mean gradient 12.9 mmHg, KERRY 1.2 cm squared. Trace aortic valve regurgitation. Tricuspid Valve Trace tricuspid valve regurgitation. Pulmonic Valve Structurally normal pulmonic valve without significant stenosis. There is no pulmonic regurgitation. Pericardium Normal pericardium without effusion. Aorta Normal ascending aorta dimension. CONCLUSIONS 1-Normal left ventricular cavity size. Normal left ventricular systolic function. Left ventricular ejection fraction is estimated at 55 %. Grade III/IV diastolic dysfunction (restrictive filling pattern), severely elevated filling pressures. 2-Normal right ventricular size. Moderate pulmonary hypertension, RVSP 49 mmHg. 3-Severe aortic valve calcification. Moderate aortic valve stenosis, mean gradient 12.9 mmHg, KERRY 1.2 cm squared. Trace aortic valve regurgitation. 4-Trace tricuspid valve regurgitation. 5-Moderately thickened mitral valve. Severe mitral annular calcification. No mitral valve stenosis. Mild mitral valve regurgitation. 6-There is no pericardial effusion. 7-Right atrial pressure is around 5 mm of mercury. 8-When compared to the prior echocardiogram dated 07/20/2015 there is deterioration of aortic valve to moderate aortic stenosis now. Michael Broussard MD (Electronically Signed) Final Date: 07 June 2019 18:40 S
== END 2019-06-07 19:43 | disposition home or self-care (01) ==
LOC: ER 23:10 → MEDSURG 23:47
PROVIDERS: Admitting Provider Internal Medicine; Emergency Provider Emergency Medicine; Family Provider Family Medicine; Visit Provider Internal Medicine
DX: J44.1 Chronic obstructive pulmonary disease with (acute) exacerbation (principal); I48.91 Unspecified atrial fibrillation; Z79.82 Long term (current) use of aspirin; I25.10 Atherosclerotic heart disease of native coronary artery without angina pectoris; I10 Essential (primary) hypertension; K21.9 Gastro-esophageal reflux disease without esophagitis; G47.00 Insomnia, unspecified; F17.210 Nicotine dependence, cigarettes, uncomplicated; K42.9 Umbilical hernia without obstruction or gangrene; B17.9 Acute viral hepatitis, unspecified
CPT/HCPCS: 12345; 36415; 36600; 71045; 74177; 76705; 80053; 82803; 83690; 83880; 85025; 86708; 86709; 86803; 87340; 93005; 93306; 94640; 96361; 96374; 96375; 96376; 99283; 99285; G0378; J0360; J1956; J2270; J2405; J3490; J7030; J7512; J7611; J7614; J7644; Q0144; Q9967

== ENCOUNTER 2019-06-15 18:40 | Inpatient (IN) | payer MEDICARE, MEDICAID, SELFPAY ==
[2019-06-15] VITALS (21 sets, daily range): BP systolic 113–180; BP diastolic 89–139; PULSE 88–160; RESP 14–26; TEMP 36.7–37.1; O2SAT 90–100; BMI 27.3
--- NOTE | 2019-06-15 18:44 | ED_ITS ---
Entered by Krista Ceja, acting as scribe for HPI - SOB/Dyspnea General: Chief Complaint: Shortness of Breath/Dyspnea Stated Complaint: RESP DISTRESS Time Seen by Provider: 06/15/19 18:57 Source: EMS Mode of arrival: EMS Limitations: no limitations History of Present Illness: HPI Narrative: 73 yo Male presents to ED with complaint of respiratory distress. Pt has had increased shortness of breath today. Pt also has a large ventral hernia. Pt has swelling/edema to his bilateral lower extremities. Pt was given 40 mg of Lasix, 125 mg of solumedrol, 5 mg of albuterol nebulizer treatments, and 4 mg of morphine by EMS, prior to his arrival to the ED. MD elicited complaint: shortness of breath and cough Pertinent past history: COPD Timing: progressively worsening Relieving factors: oxygen Known history of: COPD Associated symptoms: Reports chest congestion and cough; Deny abdominal pain, chest pain, dizziness, fever(s), nausea, palpitations or vomiting Treatment prior to arrival: oxygen, bronchodilator (5 mg albuteral total) and other (40 mg Lasix, 125 solumedrol, 4 mg morphine) Review of Systems Const: Denies: fever Eyes: Denies: change in vision or blurry vision ENMT: Denies: painful swallowing, swelling of lips/tongue, bleeding gums, dental pain, Change in hearing, nose bleeds, post nasal drip or facial/sinus pain Card: Reports: edema and swelling of feet/ankles; Denies: chest pain, palpitations or irregular heart rhythm Resp: Reports: shortness of breath, non-productive cough and chest congestion GI: Denies: abdominal pain, nausea, vomiting, rectal pain, blood in stool or black tarry stool : Denies: difficulty urinating or blood in urine Musc: Reports: back pain; Denies: neck pain, redness or joint warmth Skin/Breast: Denies: rash, itching or redness Neuro: Denies: headache, dizziness, vertigo, confusion or seizure-like activity Psych: Denies: anxiety PFSH ED PFSH: Medical History (Updated 06/15/19 @ 22:22 by Michael Rojas MD) A-fib Back pain COPD (chronic obstructive pulmonary disease) Coronary artery disease GERD (gastroesophageal reflux disease) Hypertension Incisional hernia Insomnia Non-compliant behavior Surgical History H/O exploratory laparotomy H/O laminectomy History of carpal tunnel surgery History of cholecystectomy S/P laparoscopic appendectomy Family History Other Hypertension Social History Smoking and tobacco status: current every day smoker Alcohol intake: never Lives independently: Yes Housing: House Physical Exam Const: GENERAL APPEARANCE: well developed ORIENTATION/CONSCIOUSNESS: Yes oriented to person, Yes oriented to place and Yes oriented to time HENMT: COMMON NORMALS: normocephalic, external ears normal and external nose normal HEAD & SCALP: normocephalic; no scalp tenderness FACE & SINUS: normal facial exam NOSE: external nose normal and no nasal discharge EXTERNAL EAR: Yes external ears normal MOUTH: tongue normal TEETH & GINGIVA: no abnormal tooth and associated gingiva THROAT: posterior oropharynx normal; no peritonsillar mass Eye: COMMON NORMALS: PERRL, EOMs intact bilaterally and conjunctivae normal EYELID: eyelids normal CONJUNCTIVA: Yes conjunctivae normal PUPIL: Yes PERRL Neck/C-Spine: COMMON NORMALS: full ROM GENERAL: No tracheal deviation Chest: COMMONS NORMALS: inspection of chest normal CHEST: No tenderness Resp: COMMON NORMALS: clear to auscultation bilaterally EFFORT & INSPECTION: Yes tachypneic, Yes respiratory distress and Yes labored AUSCULTATION: clear to auscultation bilaterally, rales, rhonchi and wheezes Cardio: COMMON NORMALS: negative for regular rate and negative for regular rhythm RATE: abnormal rate and tachycardic RHYTHM: abnormal rhythm and abnormal rhythm irregularly irregular HEART SOUNDS: no murmurs PERIPHERAL PULSES: radial pulses present GI: INSPECTION: Yes visible herniation (ventral) AUSCULTATION: No hyperactive bowel sounds and No hypoactive bowel sounds PALPATION: No guarding and No rigid PERCUSSION: no dullness to percussion and no tympanic to percussion Extremity: GENERAL: Yes edema (bilateral lower extremities) Neuro: SENSORIUM/ORIENTATION: Yes oriented to person, Yes oriented to place and Yes oriented to time Psych: COMMON NORMALS: mental status grossly normal Skin: GENERAL SKIN EXAM: dry skin and excoriation(s) (bilateral lower legs. ) Course Consultations: Consultation #1: helena Vital Signs: Vital signs: Vital Signs Temperature 98.0 F 06/15/19 18:42 Pulse Rate 144 H 06/15/19 22:00 Respiratory Rate 22 H 06/15/19 22:00 Blood Pressure 177/91 06/15/19 22:00 Pulse Oximetry 92 06/15/19 21:30 MDM - SOB/Dyspnea MDM Narrative: Medical decision making narrative: 73-year-old male with a respiratory distress. He comes in on CPAP. He was switched to BiPAP with good oxygenation. His blood gas shows a mildly elevated PCO2. His BNP is significantly elevated. His chest x-ray shows some increased vascularity, and patchy hazy opacities consistent with likely early pulmonary edema. He is in atrial fibrillation with rates ranging from 100-140. He was placed on Cardizem at 10. He will go to the ICU. Lab Data: Labs: Lab Results 06/15/19 06/15/19 06/15/19 Range/Units 19:10 19:10 19:10 WBC 8.6 (4.0-10.0) 10^3/ uL RBC 4.06 L (4.1-5.3) 10^6/u L Hgb 14.9 (11.7-16.6) g/dL Hct 45.4 (42.0-52.0) % MCV 111.8 H (80-94) fL MCH 36.7 H (28.0-34.0) pg MCHC 32.8 (30.0-36.0) g/dL RDW 14.4 (12.1-15.1) % Plt Count 180 (130-400) 10^3/c mm MPV 10.4 (7.4-10.4) fL Neut % (Auto) 61.5 % Lymph % (Auto) 27.2 % Craig % (Auto) 8.5 % Eos % (Auto) 1.4 % Baso % (Auto) 0.6 % Neut # (Auto) 5.3 (1.8-7.7) 10^3/u L Lymph # (Auto) 2.3 (0.8-4.8) 10^3/u L Craig # (Auto) 0.7 (0.2-0.9) 10^3/u L Eos # (Auto) 0.1 (0.0-0.8) 10^3/u L Baso # (Auto) 0.1 (0.0-0.1) 10^3/u L Nucleated RBC % (a uto) 0 % Nucleated RBCs # 0.0 /100WBC PT 12.70 (10.5-13.3) SECO NDS INR 0.92 (0.8-1.2) Specimen Type Sample Site ABG pH (7.35-7.45) ABG pCO2 (35-45) mmHg ABG pO2 (80.0-100.0) mmH g ABG HCO3 (22-26) mmol/L ABG Base Excess (-2.0-2.0) mmol/ L Yannick Test Hematocrit (42-52) % Hgb O2 Saturation (95-100) % Carboxyhemoglobin (0.4-20.1) %THgb Methemoglobin (0.4-1.5) % Total Hemoglobin (14-18) g/dL O2 Delivery Device FiO2 % Field Services Manager ID Sodium 138 (136-145) mmol/L Potassium 4.5 (3.5-5.1) mmol/L Chloride 96 L (98-107) mmol/L Carbon Dioxide 31 H (22-29) mmol/L Anion Gap 15.5 (5-19) BUN 15 (8-23) mg/dL Creatinine 0.8 (0.7-1.2) mg/dL Glucose 113 (65-115) mg/dL Calculated Osmolal ity 283 L (285-295) mOsm/k g Calcium 8.9 (8.5-10.5) mg/dL Total Bilirubin 1.0 (0.15-1.2) mg/dL AST 174 H (0-40) U/L ALT 153 H (0-41) U/L Alkaline Phosphata se 174 H (40-130) IU/L Troponin T Baselin e (0-15) ng/mL NT-Pro-B Natriuret Pep 6423 H (0-125) pg/mL Total Protein 8.7 (6.6-8.7) g/dL Albumin 3.2 L (3.5-5.2) g/dL Globulin 5.5 H (1.3-4.6) g/dL 06/15/19 06/15/19 Range/Units 19:10 19:21 WBC (4.0-10.0) 10^3/ uL RBC (4.1-5.3) 10^6/u L Hgb (11.7-16.6) g/dL Hct (42.0-52.0) % MCV (80-94) fL MCH (28.0-34.0) pg MCHC (30.0-36.0) g/dL RDW (12.1-15.1) % Plt Count (130-400) 10^3/c mm MPV (7.4-10.4) fL Neut % (Auto) % Lymph % (Auto) % Craig % (Auto) % Eos % (Auto) % Baso % (Auto) % Neut # (Auto) (1.8-7.7) 10^3/u L Lymph # (Auto) (0.8-4.8) 10^3/u L Craig # (Auto) (0.2-0.9) 10^3/u L Eos # (Auto) (0.0-0.8) 10^3/u L Baso # (Auto) (0.0-0.1) 10^3/u L Nucleated RBC % (a uto) % Nucleated RBCs # /100WBC PT (10.5-13.3) SECO NDS INR (0.8-1.2) Specimen Type Arterial Sample Site Brachial, right ABG pH 7.39 (7.35-7.45) ABG pCO2 54.9 H (35-45) mmHg ABG pO2 108.0 H (80.0-100.0) mmH g ABG HCO3 33.3 H (22-26) mmol/L ABG Base Excess 6.6 H (-2.0-2.0) mmol/ L Yannick Test N/a Hematocrit 44.7 (42-52) % Hgb O2 Saturation 96.6 (95-100) % Carboxyhemoglobin 1.2 (0.4-20.1) %THgb Methemoglobin 0.8 (0.4-1.5) % Total Hemoglobin 14.6 (14-18) g/dL O2 Delivery Device Bipap FiO2 35.0 % Field Services Manager ID [email or web address] Sodium (136-145) mmol/L Potassium (3.5-5.1) mmol/L Chloride (98-107) mmol/L Carbon Dioxide (22-29) mmol/L Anion Gap (5-19) BUN (8-23) mg/dL Creatinine (0.7-1.2) mg/dL Glucose (65-115) mg/dL Calculated Osmolal ity (285-295) mOsm/k g Calcium (8.5-10.5) mg/dL Total Bilirubin (0.15-1.2) mg/dL AST (0-40) U/L ALT (0-41) U/L Alkaline Phosphata se (40-130) IU/L Troponin T Baselin e 38 H (0-15) ng/mL NT-Pro-B Natriuret Pep (0-125) pg/mL Total Protein (6.6-8.7) g/dL Albumin (3.5-5.2) g/dL Globulin (1.3-4.6) g/dL Discharge Plan Discharge Patient Disposition: Admitted As Inpatient Admit Provider: Michael Rojas Discharge Date/Time: 06/15/19 21:50 Coding Level of Care Code ED Biological Scientist for Chg Fwd Exam Comprehensive The documentation recorded by the Brenna hughes Carmen, accurately reflects the service I personally performed and the decisions made by Ramírez duke Jeremy John, Jun 15, 2019 18:40
--- NOTE | 2019-06-15 18:58 | XR_ITS ---
WS: [id number] XR chest 1V portable [id number] REASON FOR EXAM: sob FINDINGS: The trachea is deviated to the right but there is no masses in the superior mediastinum. There is hyper aerated lungs with some fibrosis. The overall appearance the chest is similar to June 05, 2019. 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 Chronic obstructive pulmonary disease with mild fibrosis.
[2019-06-15 19:19] LABS: Basophils # 0.1 10^3/uL (0.0-0.1); Basophils % 0.6 %; Eosinophils # 0.1 10^3/uL (0.0-0.8); Eosinophils % 1.4 %; Hematocrit 45.4 % (42.0-52.0); Hemoglobin 14.9 g/dL (11.7-16.6); Lymphocytes # 2.3 10^3/uL (0.8-4.8); Lymphocytes % 27.2 %; Mean Corpuscular HGB Conc 32.8 g/dL (30.0-36.0); Mean Corpuscular Hemoglobin 36.7 pg (28.0-34.0); Mean Corpuscular Volume 111.8 fL (80-94); Mean Platelet Volume 10.4 fL (7.4-10.4); Monocytes # 0.7 10^3/uL (0.2-0.9); Monocytes % 8.5 %; Neutrophils # 5.3 10^3/uL (1.8-7.7); Neutrophils % 61.5 %; Nucleated Red Blood Cells % 0 %; Platelet Count 180 10^3/cmm (130-400); Red Blood Count 4.06 10^6/uL (4.1-5.3); Red Cell Distribution Width 14.4 % (12.1-15.1); White Blood Count 8.6 10^3/uL (4.0-10.0)
[2019-06-15] MEDS: nitroglycerin 1 gm/inch oint Pkt 1 INCH TOPICAL (19:20)
[2019-06-15] MEDS: FUROsemide 10 mg/mL SDV 4mL 40 MG IVP (19:21)
[2019-06-15 19:32] LABS: ABG PCO2 54.9 mmHg (35-45); ABG PH Result 7.39 (7.35-7.45); Arterial Blood Gas Hematocrit 44.7 % (42-52); Base Excess ABG 6.6 mmol/L (-2.0-2.0); Blood Gas Sample Site Brachial, right; Blood Gas Sample Type Arterial; Carboxyhemoglobin 1.2 %THgb (0.4-20.1); HCO3 ABG 33.3 mmol/L (22-26); HGB O2 Sat 96.6 % (95-100); Methemoglobin 0.8 % (0.4-1.5); Oxygen Device BIPAP; Total Hemoglobin 14.6 g/dL (14-18)
[2019-06-15 19:36] LABS: INR 0.92 (0.8-1.2)
[2019-06-15 19:49] LABS: Troponin(5th) Baseline 38 ng/mL (0-15)
[2019-06-15 19:58] LABS: Alanine Aminotransferase 153 U/L (0-41); Albumin Level 3.2 g/dL (3.5-5.2); Alkaline Phosphatase 174 IU/L (40-130); Anion Gap 15.5 (5-19); Aspartate Amino Transferase 174 U/L (0-40); Blood Urea Nitrogen 15 mg/dL (8-23); Calcium 8.9 mg/dL (8.5-10.5); Carbon Dioxide 31 mmol/L (22-29); Chloride 96 mmol/L (98-107); Globulin 5.5 g/dL (1.3-4.6); Glucose 113 mg/dL (65-115); NT Pro B Type Natriuretic Pept 6423 pg/mL (0-125); Osmolality Calculated 283 mOsm/kg (285-295); Potassium 4.5 mmol/L (3.5-5.1); Sodium 138 mmol/L (136-145); Total Protein 8.7 g/dL (6.6-8.7)
--- NOTE | 2019-06-15 20:29 | PM.HP ---
Providers/Chief Complaint Chief Complaint: RESP DISTRESS History of Present Illness Robert Torres is a 73 year old male who was recently seen in first week of May for congestive heart failure exacerbation due to noncompliance, active smoking, he was found to have hepatitis C and was asked to follow-up with Dr. Santo and Dr. Gomez for umbilical hernia, however he was not discharged on any diuretics, he qualified for 2 L of home oxygen. Patient came in today with chief complaint of shortness of breath. He has not followed up with any physician, he does not have any PCP, he has not seen Dr. Santo for hepatitis C and Dr. Gomez for umbilical hernia. He ran out of his medications, he has not been using his medications at all for last 10 days, he is suffering from shortness of breath on exertion, orthopnea, PND, physical activity is limited because of shortness of breath, he was discharged on 2 L of oxygen, he still smoking half a pack a day. He has noted that his legs are getting swollen and he is gaining water weight. Denies diarrhea, constipation, chest pain, dysuria recent traveling. Diagnostics in ER revealed congestive heart failure exacerbation, patient required BiPAP because he was tripoding because of respiratory distress, Nitropaste 1 inch was used for his hypotension and pulmonary edema revealed on chest x-ray. A. fib RVR heart rate fluctuating between 100-1 10, a dose of Lasix 40 mg was given along DuoNeb treatment. Review of Systems Const: Reports: body aches and malaise; Denies: fever or chills Eyes: Denies: change in vision or photophobia ENMT: Denies: throat pain or painful swallowing Card: Reports: irregular heart rhythm, swelling of feet/ankles, shortness of breath on exertion and shortness of breath when lying down; Denies: chest pain or palpitations Resp: Reports: shortness of breath and productive cough; Denies: non-productive cough GI: Denies: abdominal pain or nausea : Denies: flank pain Musc: Denies: neck pain Skin/Breast: Reports: rash, new lesion, changes in skin color and stretch dennison; Denies: chronic lesion Neuro: Denies: headache Psych: Reports: anxiety Endo: Denies: excessive urination Juan C/Lymph: Denies: easy bruising All/Imm: Denies: hives Medications/Allergies Allergies Allergy/AdvReac Type Severity Reaction Status Date / Time No Known Allergies Allergy Verified 06/05/19 20:03 PFSH Acute PFSH: Medical History (Updated 06/15/19 @ 22:22 by Michael Rojas MD) A-fib Back pain COPD (chronic obstructive pulmonary disease) Coronary artery disease GERD (gastroesophageal reflux disease) Hypertension Incisional hernia Insomnia Non-compliant behavior Surgical History H/O exploratory laparotomy H/O laminectomy History of carpal tunnel surgery History of cholecystectomy S/P laparoscopic appendectomy Family History Other Hypertension Social History Smoking and tobacco status: current every day smoker Alcohol intake: never Lives independently: Yes Housing: House Vitals/I&O/Wt Last Vital Signs Temp 98.0 F 06/15/19 18:42 Pulse 155 H 06/15/19 20:00 Resp 23 H 06/15/19 20:00 BP 160/127 06/15/19 19:26 Pulse Ox 98 06/15/19 20:00 Weight last 48 hrs Weight 81.647 kg Physical Exam Narrative: EXAM NARRATIVE: Patient has malnourished appearance, unkept appearance Variable S1-S2, active signs of heart failure with positive JVD and bilateral lower extremity edema Lung auscultation reveals bibasilar crackles without wheezing or audible stridor Seems to be in mild distress, he is not compliant with BiPAP at the moment, Abdomen soft, nontender, nondistended bowels are present Neurologically nonfocal exam Seems to very irritated, he keeps taking his BiPAP mask off, Bilateral lower extremity edema, left more than right, stretch dennison without any signs of cellulitis EOMI, PERRLA Data : 06/15/19 19:10 06/15/19 19:10 Micro: Microbiology 06/15/19 19:12 Blood Culture - Preliminary Blood SPECIMEN COLLECTED 06/15/19 19:10 Blood Culture - Preliminary Blood SPECIMEN COLLECTED A&P Assessment and plan (1) Heart failure with preserved ejection fraction, borderline, class III: Status: Acute Code(s): I50.30 - Unspecified diastolic (congestive) heart failure (2) Periumbilical hernia: Status: Acute Code(s): K42.9 - Umbilical hernia without obstruction or gangrene (3) Hepatitis: Status: Acute Code(s): K75.9 - Inflammatory liver disease, unspecified (4) Abnormal liver enzymes: Status: Acute Code(s): R74.8 - Abnormal levels of other serum enzymes Additional A&P Information Acute exacerbation of diastolic congestive heart failure exacerbation This seems secondary to noncompliance, He was not discharged on diuretics, he is not following up with any physician at the moment I will do Lasix 40 mg twice a day, cardiac diet, previous echo showed preserved ejection fraction grade 3 diastolic dysfunction Would not repeat echo, Chest x-ray is consistent with vascular congestion Oxygen dependent COPD without acute exacerbation Normal pH Currently requiring BiPAP because of respiratory distress and tripoding in ER A. fib RVR heart rate 110 He has not been taking Eliquis or diltiazem at home, would continue both Bilateral lower extremity swelling secondary to CHF exacerbation, rule out DVT, get venous Doppler for left leg Patient is a smoker, not ready to quit, does not want nicotine patch at the moment Hepatitis C and umbilical hernia He has not follow-up with Dr. Santo or Dr. Gomez for above-mentioned diagnoses respectively Abnormal liver enzymes without abdominal pain, fever or jaundice No signs of cholangitis CBD dilation seen on previous imaging Patient is not complaining of any symptoms at the moment Cardiac diet DVT prophylaxis not indicated as I am starting Eliquis for A. fib Full code Attestations Medical Necessity Statement*: Anticipating discharge in less than 48 hours after diuresing him for CHF exacerbation, no acute COPD exacerbation, and is very noncompliant high risk for readmission Time Spent in Patient Care: 50 Coding Level of Care Code Acute Concrete Placement Equipment Operator for Chg Fwd Diagnoses Heart failure with preserved ejection fraction, borderline, class III I50.30 Periumbilical hernia K42.9 Hepatitis K75.9 Abnormal liver enzymes R74.8
[2019-06-15 22:02] LABS: Troponin 5 2HR 34.41 ng/mL (0-15)
[2019-06-15 22:08] LABS: Troponin 5 2HR Delta -3.59 ABS# (0-10)
[2019-06-15 22:59] LABS: Influenza A by IFA Negative (Negative); Influenza B by IFA Negative (Negative)
--- NOTE | 2019-06-15 23:15 | PC.NURSE ---
2245 This RN walked past room as patient naali. Entered room to assist patient put nasal cannula back on. Patient ripped nasal cannula out oh this nurses hand and stated You don't know a thing about my oxygen needs. No one knows what the hell they are doing here. Patient educated to room and call light to help us know of his needs. 2315 Again in patient room as he is yelling about his oxygen. Refusing to wear bi-pap properly and wants us to leave him alone. Respiratory at bedside attempting to educate patient. Patient cussing at nursing and respiratory. Patient holding bipap on face, refusing to allow us to strap properly on him. This RN attempting to provide education about oxygen and retaining CO2, patient yelling overtop of this RN
--- NOTE | 2019-06-15 23:15 | PC.NURSE ---
Patient received from ER on 3L nasal cannula, oxygen saturation 95%. Heart rate 140-160 with blood pressure 170/100. Dr Rojas notified. Ordered to place patient on BiPAP. This nurse had a conversation about the benefits of wearing the BiPAP. Patient stated he will wear BiPAP for 5-10 minutes. This nurse informed patient that the BiPAP would be more beneficial for a longer period of time. This nurse informed respiratory. Respiratory went into room to place BiPAP on patient. Patient refused BiPAP at this time. This nurse and GAY Delgado had another conversation with patient of the benefits of wearing the BiPAP. Patient stated he does not want to wear BiPAP right now. Heart rate 150's. Will continue to monitor.
[2019-06-16] VITALS (21 sets, daily range): BP systolic 121–172; BP diastolic 20–120; PULSE 62–110; RESP 14–32; TEMP 36.4; O2SAT 77–100
[2019-06-16 04:11] LABS: Basophils % 0.2 %; Hematocrit 40.7 % (42.0-52.0); Hemoglobin 13.4 g/dL (11.7-16.6); Lymphocytes # 1.3 10^3/uL (0.8-4.8); Lymphocytes % 21.6 %; Mean Corpuscular HGB Conc 32.9 g/dL (30.0-36.0); Mean Corpuscular Hemoglobin 35.9 pg (28.0-34.0); Mean Corpuscular Volume 109.1 fL (80-94); Mean Platelet Volume 10.7 fL (7.4-10.4); Monocytes # 0.1 10^3/uL (0.2-0.9); Neutrophils # 4.5 10^3/uL (1.8-7.7); Neutrophils % 75.2 %; Nucleated Red Blood Cells % 0 %; Platelet Count 185 10^3/cmm (130-400); Red Blood Count 3.73 10^6/uL (4.1-5.3); Red Cell Distribution Width 13.9 % (12.1-15.1)
[2019-06-16 04:35] LABS: Alanine Aminotransferase 130 U/L (0-41); Albumin Level 2.9 g/dL (3.5-5.2); Alkaline Phosphatase 147 IU/L (40-130); Anion Gap 14.8 (5-19); Aspartate Amino Transferase 134 U/L (0-40); Blood Urea Nitrogen 21 mg/dL (8-23); Calcium 8.9 mg/dL (8.5-10.5); Carbon Dioxide 31 mmol/L (22-29); Chloride 93 mmol/L (98-107); Globulin 5.4 g/dL (1.3-4.6); Glucose 133 mg/dL (65-115); Osmolality Calculated 279 mOsm/kg (285-295); Potassium 3.8 mmol/L (3.5-5.1); Sodium 135 mmol/L (136-145); Total Bilirubin 0.5 mg/dL (0.15-1.2); Total Protein 8.3 g/dL (6.6-8.7)
[2019-06-16] MEDS: ipratropium-albuterol 3 mL Neb INHALATION (08:06)
[2019-06-16] MEDS: apixaban 5 mg Tablet PO ×2 (08:27→17:46)
[2019-06-16] MEDS: dilTIAZem ER (24HR) 120 mg Capsule PO (08:28)
[2019-06-16] MEDS: FUROsemide 40 mg Tablet PO (08:28)
[2019-06-16] MEDS: FUROsemide 10 mg/mL SDV 4mL 40 MG IVP (11:27)
--- NOTE | 2019-06-16 14:11 | PC.NURSE ---
Patient has disconnected himself from the vp informatics and pulse oximeter 3 times without calling for assistance. Patient reminded again to use call light and request assistance Patient states he has urinated all 3 times.
--- NOTE | 2019-06-16 14:33 | PC.CHAP ---
Pastoral Care Encounter/Spiritual Assessment Type of Contact [] Declined sap architect visit [] Patient/Family/Request visit [] Outpatient visit [] Follow-up visit [] Physician referral [] Code/Alert [x] Routine visit [] Staff referral [] Actively dying [] Patient sleeping [] Family support [] [] Out of room [] Palliative care [] [] Receiving care in room [] Pre-surgical visit [] Trauma [] Long length of stay [x] ICU visit [] Other: Relational/Emotional Strength [x] Patient feels connected with others/family/visitors/staff [] Distress [] Loneliness/isolation [] Abandonment Spirituality of Patient [] Person of Karen [] Attends [facility] of their Karen [x] Believes in Prayer [] Reads Bible or Confucianism materials [] There are Spiritual issues to be addressed Supervisor Meter Shop Interventions [x] Prayer [x] Active listening [x] Non-anxious presence [x] Spiritual/emotional support [] Crisis/trauma care [] Spiritual counseling [] Bereavement support [] Provided bereavement packet [] Provided Bible/devotional materials [] Provided toy/stuffed animal, coloring book to patient or family member [] Provided Communion [] Anointing/Jakin [] Salvation [x] Completed spiritual assessment [] Other: Impact on Illness or Injury [] Angry [] Fearful [] Anxious [] Often cries [] Exhaustion [] Unable to work [] Unable to attend buddhist [] Unable to walk/stand [] Unable to read [] Unable to drive [] Unable to eat/drink [] Unable to sleep [] Unable to be with family [] Patient intubated [x] Other: Difficulty breathing Summary Patient requested prayer and sap architect prayed with him. Visited with patient about his health and family. Patient visited by Supervisor Meter Shop Celso Levi Time spent with patient 18 minutes
--- NOTE | 2019-06-16 17:38 | PM.PN ---
Subjective Subjective: Interval history: This morning patient was examined, states that he has not been taking his medications at home, as he has not had them, states that his breathing has improved, no fevers, no chills, no chest pain, no shortness of breath Vitals/I&O/Wt Last Vital Signs Temp 97.6 F 06/16/19 09:00 Pulse 67 06/16/19 16:00 Resp 18 06/16/19 16:00 BP 164/86 06/16/19 16:00 Pulse Ox 100 06/16/19 16:00 06/16/19 06/16/19 06/16/19 06:59 14:59 22:59 Intake Total 100 / 109.833 960 / 960 Output Total 500 / 2750 Balance -400 / -2640.167 960 / 960 Weight last 48 hrs Weight 81.647 kg Physical Exam Const: COMMON NORMALS: no apparent distress and oriented x3 HENMT: COMMON NORMALS: normocephalic HEAD & SCALP: normocephalic Neck/C-Spine: COMMON NORMALS: no JVD Resp: COMMON NORMALS: normal respiratory effort, no retractions, no use of accessory muscles and clear to auscultation bilaterally AUSCULTATION: clear to auscultation bilaterally Cardio: COMMON NORMALS: no JVD, S1 normal heart sound and S2 normal heart sound RATE: tachycardic RHYTHM: abnormal rhythm HEART SOUNDS: S1 normal and S2 normal GI: COMMON NORMALS: normal to inspection, nondistended, normoactive bowel sounds, soft to palpation, non-tender, no hepatosplenomegaly, no masses and no bruits PALPATION: Yes soft and Yes no hepatosplenomegaly Extremity: COMMON NORMALS: normal capillary refill, no clubbing, cyanosis or edema, no calf tenderness and no pedal edema Neuro: COMMON NORMALS: oriented x3 Psych: COMMON NORMALS: mental status grossly normal Data : 06/16/19 03:10 06/16/19 03:10 Micro: Microbiology 06/15/19 19:12 Blood Culture - Preliminary Blood SPECIMEN COLLECTED 06/15/19 19:10 Blood Culture - Preliminary Blood SPECIMEN COLLECTED A&P Assessment and plan (1) Heart failure with preserved ejection fraction, borderline, class III: Status: Acute Code(s): I50.30 - Unspecified diastolic (congestive) heart failure (2) Periumbilical hernia: Status: Acute Code(s): K42.9 - Umbilical hernia without obstruction or gangrene (3) Hepatitis: Status: Acute Code(s): K75.9 - Inflammatory liver disease, unspecified (4) Abnormal liver enzymes: Status: Acute Code(s): R74.8 - Abnormal levels of other serum enzymes Additional A&P Information Acute exacerbation of diastolic congestive heart failure exacerbation Continue Lasix 40 mg IV twice daily, with potassium replacement 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 fib RVR heart rate 110 Continue Eliquis, transition off Cardizem drip to p.o. Cardizem Bilateral lower extremity swelling secondary to CHF exacerbation, rule out DVT, get venous Doppler for left leg Patient is a smoker, not ready to quit, does not want nicotine patch at the moment Hepatitis C and umbilical hernia He has not follow-up with Dr. Santo or Dr. Gomez for above-mentioned diagnoses respectively Transaminitis without abdominal pain, fever or jaundice No signs of cholangitis CBD dilation seen on previous imaging Will obtain acute hep panel, ferritin Patient is not complaining of any symptoms at the moment Cardiac diet DVT prophylaxis Eliquis Full code Attestations Medical Necessity Statement*: Continue hospitalization due to heart failure, A. fib Coding Level of Care Code Acute Manufacturing Sr Engineer for Chg Fwd Diagnoses Heart failure with preserved ejection fraction, borderline, class III I50.30 Periumbilical hernia K42.9 Hepatitis K75.9 Abnormal liver enzymes R74.8
[2019-06-16] MEDS: lisinopril 20 mg Tablet PO (17:46)
[2019-06-16] MEDS: trazodone 50 mg Tablet PO (22:09)
[2019-06-16] MEDS: morphine 4 mg/mL SDV 1 mL 2 MG IVP (22:09)
--- NOTE | 2019-06-16 22:13 | USCV_ITS ---
Robert Torres Age: 73 Gender: M : 1945 Exam Date: 06/16/2019 06:40 Ordering Phys: Michael Rojas MD Technologist: Nehemiah Holbrook [place]am Location: [facility] [place]ication: LT LEG PAIN AND SWELLING HISTORY: Lower extremity edema. PROCEDURES: Venous duplex imaging was performed in only the left lower extremity. The following venous structures were evaluated: common femoral vein, profunda vein, proximal portion of the greater saphenous vein, superficial femoral vein, and the popliteal vein. In addition, the posterior tibial and peroneal trunk were evaluated. On the left side, the common femoral, superficial femoral, profunda femoral, popliteal, posterior tibial, greater saphenous veins, and the peroneal trunk were identified and interrogated in the standard fashion. These veins were found to be easily compressible with spontaneous blood flow. No evidence of insufficiency or thrombus noted. FINDINGS: Normal 2-D Doppler and augmentation and compressibility throughout the lower extremity venous structures. Additional imaging through the proximal calf veins also reveals no thrombus. Limited evaluation of the greater saphenous vein is patent with no thrombus.. CONCLUSIONS Negative left lower extremity deep venous Doppler ultrasound. Dr. Kayleigh Brand MD (Electronically Signed) Final Date: 16 June 2019 08:42 S
[2019-06-17] VITALS (19 sets, daily range): BP systolic 108–159; BP diastolic 52–120; PULSE 60–150; RESP 15–25; TEMP 36.4–36.9; O2SAT 81–100
[2019-06-17] MEDS: FUROsemide 10 mg/mL SDV 4mL 40 MG IVP ×2 (00:24→11:59)
--- NOTE | 2019-06-17 02:22 | PC.NURSE ---
patients HR was 75-85 when he got to the floor, by 00:30 he was back up to 120s, and within the next hour went back and forth from 120s to 160. Called Dr. Abernathy and let her know, she decided to restart the patients cardizem that was discontinued in icu. by the time Singh from pharmacy got here with the cardizem I was alerted to patients heart rate was back to 60-to 80s. so am holding onto the bag of cardizem if he goes back up.
--- NOTE | 2019-06-17 02:54 | PC.NURSE ---
patient complained of pain generally in his abdomen d/t the pressure of the umbilical hernia in his lower left abdomen the size of a softball. Dr. Abernathy came to look at it and said it does go back inside but presses right back out. patient said this popped up a few days after his abdominal surgery 3 weeks ago and has been poking out since. said its tender when you push on it but it was causing him pain tonight. Dr. Abernathy put in an order for 2 mg morphine q6 prn. also she said she would talk to surgery or doctor about his hernia tomorrow.
[2019-06-17 04:04] LABS: Basophils % 0.1 %; Eosinophils % 0.1 %; Hematocrit 37.1 % (42.0-52.0); Hemoglobin 12.7 g/dL (11.7-16.6); Lymphocytes # 2.5 10^3/uL (0.8-4.8); Lymphocytes % 14.6 %; Mean Corpuscular HGB Conc 34.2 g/dL (30.0-36.0); Mean Corpuscular Hemoglobin 37.1 pg (28.0-34.0); Mean Corpuscular Volume 108.5 fL (80-94); Mean Platelet Volume 11.3 fL (7.4-10.4); Monocytes # 1.5 10^3/uL (0.2-0.9); Monocytes % 9.1 %; Neutrophils # 12.8 10^3/uL (1.8-7.7); Neutrophils % 75.2 %; Nucleated Red Blood Cells % 0 %; Platelet Count 152 10^3/cmm (130-400); Red Blood Count 3.42 10^6/uL (4.1-5.3); Red Cell Distribution Width 13.8 % (12.1-15.1)
[2019-06-17 04:12] LABS: Alanine Aminotransferase 129 U/L (0-41); Albumin Level 2.6 g/dL (3.5-5.2); Alkaline Phosphatase 138 IU/L (40-130); Anion Gap 5.2 (5-19); Aspartate Amino Transferase 134 U/L (0-40); Blood Urea Nitrogen 27 mg/dL (8-23); Calcium 9.1 mg/dL (8.5-10.5); Chloride 95 mmol/L (98-107); Globulin 5.3 g/dL (1.3-4.6); Glucose 144 mg/dL (65-115); Magnesium 1.8 mg/dL (1.7-2.3); Osmolality Calculated 284 mOsm/kg (285-295); Phosphorus 2.1 mg/dL (2.5-4.5); Potassium 4.2 mmol/L (3.5-5.1); Sodium 137 mmol/L (136-145); Total Bilirubin 0.4 mg/dL (0.15-1.2); Total Protein 7.9 g/dL (6.6-8.7)
[2019-06-17 04:41] LABS: Ferritin 383 ng/mL (30-400)
[2019-06-17 04:56] LABS: Carbon Dioxide 32 mmol/L (22-29)
[2019-06-17 06:25] LABS: Vitamin B12 889 pg/mL (232-1245)
[2019-06-17 06:26] LABS: Folate Level 4.4 ng/mL (4.5-32.2); Hepatitis A Antibody IgM. Non-Reactive (Nonreactive); Hepatitis B Core IgM Non-Reactive (Nonreactive); Hepatitis B Surface Antigen. Non-Reactive (Nonreactive); Hepatitis C Virus Antibody Reactive (Nonreactive)
[2019-06-17] MEDS: morphine 4 mg/mL SDV 1 mL 2 MG IVP ×2 (07:17→11:58)
[2019-06-17] MEDS: dilTIAZem ER (24HR) 120 mg Capsule PO (08:54)
[2019-06-17] MEDS: aspirin 81 mg EC Tablet PO (08:54)
[2019-06-17] MEDS: lisinopril 20 mg Tablet PO (08:54)
[2019-06-17] MEDS: apixaban 5 mg Tablet PO ×2 (08:54→17:51)
--- NOTE | 2019-06-17 09:44 | CT_ITS ---
WS: [id number] CT scan of the chest without IV contrast, additional two-dimensional coronal and sagittal reconstruct ion was performed. 06/17/2019 Clinical Data: sob, cough Comparison: None. DLP: 685.[address] scans at [facility] use at least one of these dose optimization techniques: automat ed exposure control; mA and/or kV adjustment per patient size (includes targeted exams where dose is matched to clinical indication); or iterative reconstruction. Findings: There are numerous nodules are seen throughout the lungs involving the right middle, right upper, lef t upper and left lower lobes. The largest nodule is 0.6 cm. No new nodules are seen. The heart size i s normal with no pericardial effusion. Coronary artery calcification is present. The pulmonary arter ial system and thoracic aorta demonstrate no abnormalities or dilatations. There is no axillary or si gnificant mediastinal adenopathy. The left adrenal nodule probably representing an adrenal adenoma has not changed. CT/CT chest wo con [id number] Impression: 1. Multiple pulmonary nodules unchanged. 2. No change in probable left adrenal adenoma.
[2019-06-17] MEDS: metoprolol tartrate 50 mg Tablet PO ×2 (10:02→17:51)
[2019-06-17] MEDS: morphine 4 mg/mL SDV 1 mL 1 MG IVP (10:02)
[2019-06-17] MEDS: folic acid 1 mg Tablet PO (10:02)
[2019-06-17 11:19] LABS: Bilirubin Urine Neg (NEGATIVE); Blood Urine Neg (Negative); Glucose Urine UA Norm (Normal); Ketones Urine Negative (Negative); Leukocyte Esterase Urine Negative (Negative); Nitrate Urine Negative (Negative); Protein Urine 1+ (Negative); Urine Appearance Clear (CLEAR); Urine Color Yellow (Yellow); Urobilinogen Urine Norm (Negative); pH Urine 6 (5-7)
[2019-06-17 11:20] LABS: Add Urine Culture? No; Bacteria Urine TRACE; Squamous Epithelial Cell Urine 0-4 (0-5)
--- NOTE | 2019-06-17 14:29 | P.PN_ITS ---
Subjective Subjective: Interval history: This morning patient sitting up in bed, states that he still feels short of breath, had episodes of A. fib with RVR overnight, no chest pain, no lightheadedness, no dizziness Vitals/I&O/Wt Last Vital Signs Temp 98.5 F 06/17/19 04:00 Pulse 106 H 06/17/19 11:12 Resp 20 H 06/17/19 11:58 BP 121/83 06/17/19 11:12 Pulse Ox 99 06/17/19 11:12 06/16/19 06/17/19 06/17/19 22:59 06:59 14:59 Intake Total 720 / 1680 360 / 2040 1571 / 1571 Output Total 625 / 625 1225 / 1850 1300 / 1300 Balance 95 / 1055 -865 / 190 271 / 271 Weight last 48 hrs Weight 81.647 kg Physical Exam Const: COMMON NORMALS: no apparent distress and oriented x3 HENMT: COMMON NORMALS: normocephalic HEAD & SCALP: normocephalic Neck/C-Spine: COMMON NORMALS: no JVD Resp: COMMON NORMALS: normal respiratory effort, no retractions, no use of accessory muscles and clear to auscultation bilaterally AUSCULTATION: clear to auscultation bilaterally Cardio: COMMON NORMALS: no JVD, regular rate, regular rhythm, S1 normal heart sound and S2 normal heart sound RATE: regular rate RHYTHM: regular rhythm HEART SOUNDS: S1 normal and S2 normal GI: COMMON NORMALS: normal to inspection, nondistended, normoactive bowel sounds, soft to palpation, non-tender, no hepatosplenomegaly, no masses and no bruits PALPATION: Yes soft and Yes no hepatosplenomegaly Extremity: COMMON NORMALS: normal capillary refill, no clubbing, cyanosis or edema, no calf tenderness and no pedal edema Neuro: COMMON NORMALS: oriented x3 Psych: COMMON NORMALS: mental status grossly normal Data : 06/17/19 03:10 06/17/19 03:10 Micro: Microbiology 06/15/19 19:12 Blood Culture - Preliminary Blood NEGATIVE TO DATE 06/15/19 19:10 Blood Culture - Preliminary Blood NEGATIVE TO DATE A&P Assessment and plan (1) Heart failure with preserved ejection fraction, borderline, class III: Status: Acute Code(s): I50.30 - Unspecified diastolic (congestive) heart failure (2) Periumbilical hernia: Status: Acute Code(s): K42.9 - Umbilical hernia without obstruction or gangrene (3) Hepatitis: Status: Acute Code(s): K75.9 - Inflammatory liver disease, unspecified (4) Abnormal liver enzymes: Status: Acute Code(s): R74.8 - Abnormal levels of other serum enzymes Additional A&P Information Acute exacerbation of diastolic congestive heart failure exacerbation Continue Lasix 40 mg IV twice daily, with potassium replacement 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 fib RVR heart rate 110 Continue Eliquis, Cardizem, add on metoprolol Bilateral lower extremity swelling secondary to CHF exacerbation, Patient is a smoker, not ready to quit, does not want nicotine patch at the moment Hepatitis C and umbilical hernia He has not follow-up with Dr. Santo or Dr. Gomez for above-mentioned diagnoses respectively Transaminitis without abdominal pain, fever or jaundice No signs of cholangitis CBD dilation seen on previous imaging Patient is not complaining of any symptoms at the moment Cardiac diet DVT prophylaxis Eliquis Full code Attestations Medical Necessity Statement*: She requires continued hospitalization due to acute respiratory failure Coding Level of Care Code Acute Fish Dressing Machine Feeder for Chg Fwd Diagnoses Heart failure with preserved ejection fraction, borderline, class III I50.30 Periumbilical hernia K42.9 Hepatitis K75.9 Abnormal liver enzymes R74.8
--- NOTE | 2019-06-17 14:40 | CTR_ITS ---
PROCEDURE INFORMATION: Exam: CT Abdomen And Pelvis With Contrast Exam date and time: 06/17/2019 2:50 PM Age: 73 years old Clinical indication: Abdominal pain; Other: Llq; Prior surgery; Surgery type: Appy gb; Additional info: Abdominal pain, hernia site pain TECHNIQUE: Imaging protocol: Computed tomography of the abdomen and pelvis with intravenous contrast. Total DLP: 2102.26 mGy-cm Radiation optimization: All CT scans at this facility use at least one of these dose optimization techniques: automated exposure control; mA and/or kV adjustment per patient size (includes targeted exams where dose is matched to clinical indication); or iterative reconstruction. Contrast material: OMNI 300; Contrast volume: 95 ml; Contrast route: IV; COMPARISON: CT abdomen pelvis w con* [id number] 06/05/2019 10:02 PM FINDINGS: Lungs: There are two sub cm (both measuring just under 1 cm) irregular sub solid nodules in the posterior basal segment of the right lower lobe. This remains essentially stable since last evaluation of 06/05/2019. This could reflect scar; however, would recommend follow-up CT chest. Recommend CT at 3-6 months. Subsequent management based on the most suspicious nodule(s). (Cindy et al., Fleischner Society, 2017). Liver: Assessment of the liver stable and unremarkable. Again note of rare tiny hepatic cysts the largest in the left hepatic lobe measuring approximately 7 mm. This finding remains stable. Gallbladder and bile ducts: Status post cholecystectomy. No visible intra or extrahepatic biliary ectasia. Pancreas: Pancreas unremarkable. No visible pancreatic ductal ectasia. Spleen: Normal. No splenomegaly. Adrenals: Stable left adrenal nodule since 03/26/2015. Kidneys and ureters: Stable simple left renal cortical cyst at the equator. Stable tiny cortical cysts inferior pole left kidney. Renal arterial sclerosis. No visible hydronephrosis or hydroureter. Stomach and bowel: Nonobstructive bowel pattern. No evidence for adynamic or reactive ileus. No findings suggest the presence of diverticulitis. No visible evidence of significant diverticulosis coli. Incidental note of a small 2nd portion duodenal lipoma. Appendix: Status post appendectomy. Appendix: No evidence of appendicitis. Intraperitoneal space: No visible free fluid in the abdomen or pelvis. Vasculature: The abdominal aorta is nonaneurysmal. Moderate arterial sclerotic disease. Coronary artery disease. Lymph nodes: No visible mesenteritis/panniculitis or mesenteric lymphadenitis/lymphadenopathy. No visible active retroperitoneal lymphadenopathy or lymphadenitis. Bladder: Bladder without filling defect. Reproductive: Prostate hypertrophy. Bones/joints: Inter pedicle screw fixation L4 and L5. Degenerative disease and degenerative disc disease with spondylosis deformans. Right total hip prosthesis. No visible acute osseous abnormality. Soft tissues: Large left periumbilical ventral hernia containing small and large bowel loops without obstruction, measuring 11.5 cm x 4 cm x 10.2 cm. The opening of the hernia measures 6 cm. Bilateral inguinal hernias. The right inguinal hernia contains a incarcerated short segment of small bowel loop without obstruction. The left inguinal hernia contains fat only. CT/CT abdomen pelvis w con* [id number] IMPRESSION: 1. Large left periumbilical ventral hernia containing loops of small and large bowel without current evidence of obstruction. 2. Right inguinal hernia containing a incarcerated short segment of small bowel loop without obstruction. 3. Left inguinal hernia containing fat only. 4. There are two sub cm (both measuring just under 1 cm) irregular sub solid nodules in the posterior basal segment of the right lower lobe. This remains essentially stable since last evaluation of 06/05/2019. This could reflect scar; however, would recommend follow-up CT chest. Recommend CT at 3-6 months. Subsequent management based on the most suspicious nodule(s). (Cindy et al., Fleischner Society, 2017). 5. Other chronic and postoperative findings as detailed in text above. Radiation Dose CTDIVOL = (mGy): DLP = 2102.26 (mGy-cm)
[2019-06-17] MEDS: HYDROmorphone 1 mg/mL INJ 1 mL 0.5 MG IVP ×2 (15:00→20:57)
[2019-06-17] MEDS: iohexol 300 mg/mL 100 mL Btl IV (17:26)
[2019-06-17] MEDS: trazodone 50 mg Tablet PO (20:55)
--- NOTE | 2019-06-17 22:19 | PC.NURSE ---
patients iv came out i was told by the distributor operator. i put another iv in in the left forearm, a 22 gauge. it was the 3rd attempt, patients blood wouldnt flush the first two times but bled a little after tourniquet and iv needle were off. so third attempt i got a flash, undid tourniquet and completed advancing the catheter. got back good blood return and flushed well. patient tolerated it well.
[2019-06-18] VITALS (13 sets, daily range): BP systolic 119–131; BP diastolic 67–93; PULSE 65–103; RESP 15–31; TEMP 36.6–37.1; O2SAT 82–100
[2019-06-18] MEDS: FUROsemide 10 mg/mL SDV 4mL 40 MG IVP ×2 (00:56→12:49)
[2019-06-18 04:52] LABS: Basophils # 0.1 10^3/uL (0.0-0.1); Basophils % 0.3 %; Eosinophils # 0.1 10^3/uL (0.0-0.8); Eosinophils % 0.7 %; Hematocrit 36.6 % (42.0-52.0); Hemoglobin 12.5 g/dL (11.7-16.6); Lymphocytes # 2.7 10^3/uL (0.8-4.8); Lymphocytes % 15.9 %; Mean Corpuscular HGB Conc 34.2 g/dL (30.0-36.0); Mean Corpuscular Hemoglobin 37.4 pg (28.0-34.0); Mean Corpuscular Volume 109.6 fL (80-94); Mean Platelet Volume 11.3 fL (7.4-10.4); Monocytes # 2.3 10^3/uL (0.2-0.9); Monocytes % 13.4 %; Neutrophils # 11.7 10^3/uL (1.8-7.7); Neutrophils % 69.2 %; Nucleated Red Blood Cells % 0 %; Platelet Count 148 10^3/cmm (130-400); Red Blood Count 3.34 10^6/uL (4.1-5.3); Red Cell Distribution Width 14.3 % (12.1-15.1); White Blood Count 16.9 10^3/uL (4.0-10.0)
[2019-06-18 05:09] LABS: Alanine Aminotransferase 141 U/L (0-41); Albumin Level 2.5 g/dL (3.5-5.2); Alkaline Phosphatase 135 IU/L (40-130); Anion Gap 8.6 (5-19); Aspartate Amino Transferase 142 U/L (0-40); Blood Urea Nitrogen 34 mg/dL (8-23); Carbon Dioxide 35 mmol/L (22-29); Chloride 91 mmol/L (98-107); Glucose 104 mg/dL (65-115); Magnesium 1.8 mg/dL (1.7-2.3); Osmolality Calculated 268 mOsm/kg (285-295); Phosphorus 3.5 mg/dL (2.5-4.5); Potassium 4.6 mmol/L (3.5-5.1); Sodium 130 mmol/L (136-145); Total Bilirubin 0.5 mg/dL (0.15-1.2); Total Protein 7.5 g/dL (6.6-8.7)
--- NOTE | 2019-06-18 05:28 | PC.NURSE ---
patient continues to remove his o2 tubing and place it on his forehead, says he cant breathe with his cannula in his nose so he keeps it in his mouth, but takes it out everytime he eats, urinates, sits up to fidget, etc. and instead of putting it in his nose to get a little o2 he slides it up to his forehead dropping hissats to upper 70s/80s and argues with staff when they explain that he needs to keep it on to breathe well.
[2019-06-18] MEDS: folic acid 1 mg Tablet PO (08:44)
[2019-06-18] MEDS: aspirin 81 mg EC Tablet PO (08:44)
[2019-06-18] MEDS: metoprolol tartrate 50 mg Tablet PO ×2 (08:44→18:01)
[2019-06-18] MEDS: dilTIAZem ER (24HR) 120 mg Capsule PO (08:44)
[2019-06-18] MEDS: apixaban 5 mg Tablet PO ×2 (08:44→18:01)
[2019-06-18] MEDS: lisinopril 20 mg Tablet PO (08:44)
[2019-06-18] MEDS: HYDROmorphone 1 mg/mL INJ 1 mL IVP ×4 (08:46→22:19)
[2019-06-18] MEDS: ipratropium-albuterol 3 mL Neb INHALATION (09:21)
--- NOTE | 2019-06-18 11:26 | P.PN_ITS ---
Subjective Subjective: Interval history: This morning patient is complaining of pain in his lateral ventral hernia site, and pain in his groin, states that he still has some swelling of his lower extremities, no fevers, no chills, has some shortness of breath with exertion, heart rates better controlled. Patient states that the pain medication wears off, and he is in pain Vitals/I&O/Wt Last Vital Signs Temp 97.8 F 06/18/19 11:22 Pulse 65 06/18/19 11:22 Resp 15 06/18/19 11:22 BP 125/72 06/18/19 11:22 Pulse Ox 93 06/18/19 11:22 06/17/19 06/18/19 06/18/19 22:59 06:59 14:59 Intake Total 340 / 1911 240 / 2151 360 / 360 Output Total 300 / 1600 1225 / 2825 500 / 500 Balance 40 / 311 -985 / -674 -140 / -140 Physical Exam Const: COMMON NORMALS: no apparent distress and oriented x3 HENMT: COMMON NORMALS: normocephalic HEAD & SCALP: normocephalic Neck/C-Spine: COMMON NORMALS: no JVD Resp: COMMON NORMALS: normal respiratory effort, no retractions, no use of accessory muscles and clear to auscultation bilaterally AUSCULTATION: clear to auscultation bilaterally Cardio: COMMON NORMALS: no JVD, regular rate, regular rhythm, S1 normal heart sound and S2 normal heart sound RATE: regular rate RHYTHM: regular rhythm HEART SOUNDS: S1 normal and S2 normal GI: COMMON NORMALS: normal to inspection, nondistended, normoactive bowel sounds, soft to palpation, non-tender, no masses and no bruits AUSCULTATION: Yes normoactive bowel sounds PALPATION: Yes soft and Yes hernia (Large periumbilical hernia, left ventral hernia. Right inguinal hernia, nonreducible) umbilical Extremity: COMMON NORMALS: normal capillary refill, no clubbing, cyanosis or edema, no calf tenderness and no pedal edema Neuro: COMMON NORMALS: oriented x3 Psych: COMMON NORMALS: mental status grossly normal Data : 06/18/19 03:50 06/18/19 03:50 A&P Assessment and plan (1) Heart failure with preserved ejection fraction, borderline, class III: Status: Acute Code(s): I50.30 - Unspecified diastolic (congestive) heart failure (2) Periumbilical hernia: Status: Acute Code(s): K42.9 - Umbilical hernia without obstruction or gangrene (3) Hepatitis: Status: Acute Code(s): K75.9 - Inflammatory liver disease, unspecified (4) Abnormal liver enzymes: Status: Acute Code(s): R74.8 - Abnormal levels of other serum enzymes (5) Right inguinal hernia: -Right inguinal hernia, on imaging shows that is incarcerated, no obstruction -Has inguinal pain, groin pain -I tried to manually reduce it a couple of times, however I was unable to reduce it -I will have Dr. 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 fib RVR heart rate 60's Continue Eliquis, Cardizem 120 mg once daily, metoprolol 50 twice daily Bilateral lower extremity swelling secondary to CHF exacerbation, Patient is a smoker, not ready to quit, does not want nicotine patch at the moment Hepatitis C and umbilical hernia He has not follow-up with Dr. Santo or Dr. Gomez for above-mentioned diagnoses respectively Transaminitis without abdominal pain, fever or jaundice No signs of cholangitis CBD dilation seen on previous imaging Likely secondary to acute hepatitis C Leukocytosis, patient did receive steroids in the emergency room, likely steroid related, remains afebrile, blood cultures are unremarkable, patient has no cough or fever or dysuria complaints Cardiac diet DVT prophylaxis Eliquis Full code Attestations Medical Necessity Statement*: Requires continued hospitalization due to acute exacerbation of CHF, requires more diuresis, right inguinal hernia pain Coding Level of Care Code Acute Photograph Retoucher for Chg Fwd Diagnoses Heart failure with preserved ejection fraction, borderline, class III I50.30 Periumbilical hernia K42.9 Hepatitis K75.9 Abnormal liver enzymes R74.8 Right inguinal hernia K40.90
--- NOTE | 2019-06-18 12:32 | PM.CONSULT ---
Providers/Reason For Consult Consulting Physican/Specialty*: Kristofer Powers MD Reason for Consult*: Incarcerated right inguinal hernia Attending Physician: Kristofer Powers MD History of Present Illness History of Present Illness Robert Torres is a 73 year old male who is a known patient of mine who developed an incisional hernia after exploratory laparotomy. Patient is a smoker and continues to have chronic cough. He complained of some abdominal pain and a CT abdomen pelvis was obtained which showed a partially incarcerated nonobstructing right inguinal hernia. Patient denies any nausea vomiting and has normal bowel function. Review of Systems General: Reports: 10 or more systems reviewed and unremarkable except in HPI and below Meds/Allergies Home Medications and Allergies Home Medications Medication Instructions Recorded Confirmed Type Spiriva Respimat 2 puff INHALATION BID 06/05/19 06/15/19 History Tylenol 1 tab PO PRN 06/05/19 06/15/19 History aspirin [Aspir-81] 81 mg PO DAILY 06/05/19 06/15/19 History fluticasone propion-salmeterol 2 puff INHALATION BID 06/05/19 06/15/19 History [Advair Diskus] nitroglycerin [Nitrostat] 0.4 mg SUBLINGUAL Q5M PRN 06/05/19 06/15/19 History trazodone 50 - 100 mg PO BEDTIME PRN 06/05/19 06/15/19 History albuterol sulfate [ProAir HFA] See Rx Instructions .ROUTE 06/07/19 06/15/19 Rx .COMPLEX #8.5 gm apixaban [Eliquis] 5 mg PO BID #60 tab 06/07/19 06/15/19 Rx diltiazem HCl 120 mg PO DAILY #30 cap 06/07/19 06/15/19 Rx nicotine 1 patch TRANSDERMAL DAILY #30 ea 06/07/19 06/15/19 Rx prednisone See Rx Instructions .ROUTE 06/07/19 06/15/19 Rx .COMPLEX #11 tab Allergies Allergy/AdvReac Type Severity Reaction Status Date / Time No Known Allergies Allergy Verified 06/05/19 20:03 Current Medications Current Medications Generic Name Dose Route Start Last Admin Trade Name Freq PRN Reason Stop Dose Admin Albuterol/Ipratropium 3 ml 06/16/19 10:16 06/18/19 09:21 Duoneb INHALATION 3 ml Q6H.RESPIRATORY PRN Administration SHORTNESS OF BREATH Apixaban 5 mg 06/16/19 09:00 06/18/19 08:44 Eliquis PO 5 mg BID DONN Administration Aspirin 81 mg 06/17/19 09:00 06/18/19 08:44 Aspirin Ec PO 81 mg DAILY DONN Administration Diltiazem HCl 120 mg 06/16/19 09:00 06/18/19 08:44 Cardizem Cd (24hr) PO 120 mg DAILY DONN Administration Folic Acid 1 mg 06/17/19 09:45 06/18/19 08:44 Folic Acid PO 1 mg DAILY DONN Administration Furosemide 40 mg 06/16/19 12:00 06/18/19 00:56 Lasix IVP 40 mg Q12H DONN Administration Hydromorphone HCl 1 mg 06/18/19 08:39 06/18/19 08:46 Dilaudid Inj IVP 1 mg Q4H PRN Administration SEVERE PAIN Lisinopril 20 mg 06/16/19 17:40 06/18/19 08:44 Prinivil PO 20 mg DAILY DONN Administration Metoprolol Tartrate 50 mg 06/17/19 09:45 06/18/19 08:44 Lopressor PO 50 mg BID DONN Administration Potassium Chloride 40 meq 06/16/19 09:00 06/18/19 08:44 Klor-Con 10 PO 40 meq DAILY DONN Administration Fluticasone/Salmeterol 1 puff 06/16/19 20:00 06/18/19 09:22 Advair Diskus 100-50 INHALATION 1 puff BID.RESPIRATORY DONN Administration Tiotropium [place] 18 mcg 06/17/19 08:00 06/18/19 09:21 Spiriva INHALATION 1 puff DAILY.RESPIRATORY DONN Administration Tiotropium [place] 2 mcg 06/16/19 21:24 06/18/19 09:23 Spiriva INHALATION Not Given BID DONN Trazodone HCl 50 - 100 mg 06/15/19 22:12 06/17/19 20:55 Desyrel PO 100 mg BEDTIME PRN Administration SLEEP PFSH Acute PFSH: Medical History A-fib Back pain COPD (chronic obstructive pulmonary disease) Coronary artery disease GERD (gastroesophageal reflux disease) Hypertension Incisional hernia Insomnia Non-compliant behavior Surgical History H/O exploratory laparotomy H/O laminectomy History of carpal tunnel surgery History of cholecystectomy S/P laparoscopic appendectomy Family History Other Hypertension Social History Smoking and tobacco status: current every day smoker Alcohol intake: never Lives independently: Yes Housing: House Vitals/I&O/Wt Last Vital Signs Temp 97.8 F 06/18/19 11:22 Pulse 65 06/18/19 11:22 Resp 15 06/18/19 11:22 BP 125/72 06/18/19 11:22 Pulse Ox 93 06/18/19 11:22 06/17/19 06/18/19 06/18/19 22:59 06:59 14:59 Intake Total 340 / 2151 240 / 2151 360 / 360 Output Total 300 / 2825 1225 / 2825 500 / 500 Balance 40 / -674 -985 / -674 -140 / -140 Physical Exam Narrative: EXAM NARRATIVE: HEENT: Normocephalic Eye: Sclera /conjunctiva normal Respiratory and chest: Bilateral wheezing on inspiration Cardiovascular: Normal S1 and S2 heart sounds Abdomen: Soft to palpation, reducible incisional hernia, well-healed midline laparotomy scar, reducible right inguinal and left inguinal hernia Neurological: Oriented to place person and time Skin: Intact, no lesions appreciated on gross exam A&P Assessment and plan (1) Right inguinal hernia: nontender, continued observation since patient has significant respiratory issues Status: Acute Code(s): K40.90 - Unilateral inguinal hernia, without obstruction or gangrene, not specified as recurrent (2) Incisional hernia: Patient will need abdominal wall reconstruction with component separation and considering his respiratory and cardiac status he is not a candidate. Since the hernia is this large he is not at high risk of incarceration or obstruction. Status: Acute Code(s): K43.2 - Incisional hernia without obstruction or gangrene Coding Level of Care Code Acute Application Development Specialist for [facility] Diagnoses Right inguinal hernia K40.90 Incisional hernia K43.2
[2019-06-18] MEDS: trazodone 50 mg Tablet PO (20:56)
[2019-06-19] VITALS (8 sets, daily range): BP systolic 120–159; BP diastolic 62–90; PULSE 60–72; RESP 14–26; TEMP 36.6–37.1; O2SAT 91–100
[2019-06-19] MEDS: FUROsemide 10 mg/mL SDV 4mL 40 MG IVP ×2 (00:34→12:15)
--- NOTE | 2019-06-19 03:19 | PC.NURSE ---
the patient slept for quite a bit getting up a couple times to urinate. then about 2 am the patient was making some grunting sounds like hes been doing when he gets himself tangled in his sheet then got quiet. shortly later i started to smell what smelled like a bowel movement so I went looking and there by the wall near the window the patient had relieved himself as well as emptied his bowels in two huge piles one slightly loose and had moved the wheeled table over it so no one would step on it this mess went from the floor by his stand to the end of his bed. he had bm on his bp cuff, his wires, the stand, table bed as well as the floor smeared. He didnt put his call light on to say he needed to go, or assistance or that he had went. yet hes had his call light on numerous times before sleeping and can carry a conversation on with you. he has been acting more confused, and absent minded tonight. We had him go with Maria Elena the aid to take a shower while Zahraa and I got the mess picked up and purple wiped down and remade the bed. Davi from housekeeping came in and mopped with bleach and cleaned the windowsill and sink (the patient emptied his urinal into it earlier tonight his room mate said. The patient fidgets alot, taking wires off, tangling them up, still taking o2 out of his mouth alot but we keep reorienting him and making sure he has it in his mouth since he ant breathe through his nose he says. when he keeps it in his sats are usually near low 90s, however since his shower hes been up near upper 90s.
[2019-06-19 04:52] LABS: Basophils % 0.2 %; Eosinophils # 0.1 10^3/uL (0.0-0.8); Eosinophils % 0.5 %; Hematocrit 38.3 % (42.0-52.0); Hemoglobin 13.1 g/dL (11.7-16.6); Lymphocytes # 2.7 10^3/uL (0.8-4.8); Lymphocytes % 16.5 %; Mean Corpuscular HGB Conc 34.2 g/dL (30.0-36.0); Mean Corpuscular Volume 108.2 fL (80-94); Mean Platelet Volume 11.8 fL (7.4-10.4); Monocytes # 1.9 10^3/uL (0.2-0.9); Monocytes % 11.7 %; Neutrophils # 11.5 10^3/uL (1.8-7.7); Neutrophils % 70.2 %; Nucleated Red Blood Cells % 0 %; Platelet Count 160 10^3/cmm (130-400); Red Blood Count 3.54 10^6/uL (4.1-5.3); Red Cell Distribution Width 14.3 % (12.1-15.1); White Blood Count 16.3 10^3/uL (4.0-10.0)
[2019-06-19 04:58] LABS: Alanine Aminotransferase 117 U/L (0-41); Alkaline Phosphatase 127 IU/L (40-130); Anion Gap 13.9 (5-19); Aspartate Amino Transferase 102 U/L (0-40); Blood Urea Nitrogen 35 mg/dL (8-23); Calcium 8.9 mg/dL (8.5-10.5); Carbon Dioxide 34 mmol/L (22-29); Chloride 89 mmol/L (98-107); Globulin 4.5 g/dL (1.3-4.6); Glucose 99 mg/dL (65-115); Magnesium 1.9 mg/dL (1.7-2.3); Osmolality Calculated 273 mOsm/kg (285-295); Phosphorus 3.7 mg/dL (2.5-4.5); Potassium 3.9 mmol/L (3.5-5.1); Sodium 133 mmol/L (136-145); Total Bilirubin 0.7 mg/dL (0.15-1.2); Total Protein 7.5 g/dL (6.6-8.7)
--- NOTE | 2019-06-19 06:23 | PC.NURSE ---
patient a little cranky up this morning, as he is fidgeting with his clothing in his bag in the side desk and when asked if he had his oxygen on got very testy saying not right now fran had it off for a few minutes johan im doing something then ill put it back in. he is sitting on the bed and can reach both. also he has not said anything about pain meications again this might since i gave him his bedtime dose at 2200 when he had 1 mg of dalaudid. the day nurse said he was irritable to her wanting his pain meds exactly 4 hours apart.
--- NOTE | 2019-06-19 08:30 | XR_ITS ---
WS: [id number] XR chest 1V portable [id number] REASON FOR EXAM: sob FINDINGS: The heart and mediastinal interfaces normal. The lung quintana are well aerated. The overall appearance the chest is similar to May. No pne umonia, pleural effusion, pulmonary edema, The hilum and apices normal. XR/XR chest 1V portable [id number] IMPRESSION: Negative chest for active pathology.
[2019-06-19] MEDS: ipratropium-albuterol 3 mL Neb INHALATION (08:57)
[2019-06-19] MEDS: dilTIAZem ER (24HR) 120 mg Capsule PO (09:16)
[2019-06-19] MEDS: metoprolol tartrate 50 mg Tablet PO ×2 (09:16→17:19)
[2019-06-19] MEDS: aspirin 81 mg EC Tablet PO (09:17)
[2019-06-19] MEDS: apixaban 5 mg Tablet PO ×2 (09:17→17:19)
[2019-06-19] MEDS: folic acid 1 mg Tablet PO (09:17)
[2019-06-19] MEDS: lisinopril 20 mg Tablet PO (09:17)
--- NOTE | 2019-06-19 12:13 | DCPLANNER ---
IMM presented to pt., explained and signed. No questions, copy provided.
--- NOTE | 2019-06-19 12:54 | PC.SOCIAL ---
[place] pharmacy called to indicate since Hydrocodone is a new script can only do a 7 day supply initially. He will see him again as outpatient on the and can write a new script for a longer period of time. Updated Dr Powers.
--- NOTE | 2019-06-19 18:28 | P.DS_ITS ---
Discharge Providers Date of Admission: 06/16/19 17:53 Date of Discharge: June 19, 2019 Attending Provider at Admission: Michael Rojas MD Attending Provider at Discharge: Kristofer Powers MD Diagnoses at Discharge Discharge Diagnosis (1) Right inguinal hernia: Status: Acute (2) Incisional hernia: Status: Acute Reason for Visit Reason for Visit: Reason For Visit: RESP DISTRESS Hospital Course Discharge Summary: This is a 73-year-old male with a past medical history of heart failure with preserved ejection fraction, umbilical hernia, atrial fibrillation, COPD 3 L oxygen dependent, hepatitis C, transaminitis, smoker who presents to the emergency room due to complaints of shortness of breath. Patient was admitted for acute CHF exacerbation, and A. fib with RVR, as patient states that he is not been taking his medication since his recent hospital d ischarge. Patient was admitted to the cardiac stepdown unit, started on a Cardizem drip, eventually transition to p.o. Cardizem and metoprolol, patient clinically did well, discharged home on Cardizem 120 mg once daily, Metroprolol 50 mg twice daily, Eliquis 5 mg twice daily, all these medications were sent to the pharmacy, with close follow-up with cardiology as outpatient. For patient's acute respiratory failure secondary to CHF exacerbation, he received Lasix as inpatient, diuresed well, discharged on Lasix 40 mg p.o. daily, fluid restrictions to 1500 cc daily, daily weights, with close follow-up with me in clinic in the next week. I have left instructions for him, if his weight increases by more than 2 pounds, he is allowed to take 40 Lasix 40 mg twice daily for the next 2 days. In addition patient during his admission patient had complaints of right inguinal pain, found to have a right inguinal hernia that was incarcerated, which was reduced by Dr. Gomez, patient was advised to follow-up with Dr. Gomez in clinic in the next month. Patient was advised that if he were to have sudden onset of right inguinal pain, nausea, vomiting, as this could be signs of life-threatening incarceration, and obstruction, and to come to the emergency room immediately. Patient also has a history of hepatitis C and transaminitis, no history of treatment, is interested in treatment, patient was advised to follow-up with me in clinic in the next few weeks for consideration for treatment. Physical Exam Const: COMMON NORMALS: no apparent distress and oriented x3 HENMT: COMMON NORMALS: normocephalic HEAD & SCALP: normocephalic Neck/C-Spine: COMMON NORMALS: no JVD Resp: COMMON NORMALS: normal respiratory effort, no retractions, no use of accessory muscles and clear to auscultation bilaterally AUSCULTATION: clear to auscultation bilaterally Cardio: COMMON NORMALS: no JVD, regular rate, regular rhythm, S1 normal heart sound and S2 normal heart sound RATE: regular rate RHYTHM: regular rhythm HEART SOUNDS: S1 normal and S2 normal GI: COMMON NORMALS: normal to inspection, nondistended, normoactive bowel sounds, soft to palpation, non-tender, no hepatosplenomegaly, no masses and no bruits PALPATION: Yes soft and Yes no hepatosplenomegaly Extremity: COMMON NORMALS: normal capillary refill, no clubbing, cyanosis or edema, no calf tenderness and no pedal edema Neuro: COMMON NORMALS: oriented x3 Psych: COMMON NORMALS: mental status grossly normal Discharge Data Data Completed and Pending: Completed Studies During Hospitalization Category Date Time Status CT abdomen pelvis w con* [id number] Rout ine Cat Scan 06/17/19 14:[address] chest wo con 7 [id number] Routine Cat Scan 06/17/19 09:44 Completed XR chest 1V negrito ble [id number] Urgent Exams 06/15/19 18:58 Completed XR chest 1V negrito ble [id number] Urgent Exams 06/19/19 08:30 [place] [id number] Routin e Ultrasound 06/16/19 22:13 Completed Pending at discharge Category Date Time Status Blood Culture Sta t Lab 06/15/19 19:12 Results Complete Blood Co unt w/Auto AM LABS Lab 06/20/19 04:00 Ordered Complete Blood Co unt w/Auto AM LABS Lab 06/21/19 04:00 Ordered Complete Blood Co unt w/Auto AM LABS Lab 06/22/19 04:00 Ordered Comprehensive Met abolic Panel AM LA BS Lab 06/20/19 04:00 Ordered Comprehensive Met abolic Panel AM LA BS Lab 06/21/19 04:00 Ordered Comprehensive Met abolic Panel AM LA BS Lab 06/22/19 04:00 Ordered Labs from last 24 hours 06/19/19 06/19/19 03:10 03:10 WBC 16.3 H RBC 3.54 L Hgb 13.1 Hct 38.3 L MCV 108.2 H MCH 37.0 H MCHC 34.2 RDW 14.3 Plt Count 160 MPV 11.8 H Neut % (Auto) 70.2 Lymph % (Auto) 16.5 Early % (Auto) 11.7 Eos % (Auto) 0.5 Baso % (Auto) 0.2 Neut # (Auto) 11.5 H Lymph # (Auto) 2.7 Early # (Auto) 1.9 H Eos # (Auto) 0.1 Baso # (Auto) 0.0 Nucleated RBC % (a uto) 0 Nucleated RBCs # 0.0 Sodium 133 L Potassium 3.9 Chloride 89 L Carbon Dioxide 34 H Anion Gap 13.9 BUN 35 H Creatinine 1.0 Glucose 99 Calculated Osmolal ity 273 L Calcium 8.9 Phosphorus 3.7 Magnesium 1.9 Total Bilirubin 0.7 AST 102 H ALT 117 H Alkaline Phosphata se 127 Total Protein 7.5 Albumin 3.0 L Globulin 4.5 Vitals: Last Vital Signs Temp 98.7 F 06/19/19 07:32 Pulse 69 06/19/19 11:41 Resp 17 06/19/19 11:41 BP 159/75 06/19/19 11:41 Pulse Ox 91 06/19/19 11:41 Discharge Plan Discharge Patient Disposition: Home, Self-Care Condition: Stable Prescriptions: New hydrocodone-acetaminophen 5-325 mg Tablet 1 tab PO Q8H PRN (Reason: Moderate Pain) 15 Days Qty: 30 RF: 0 lisinopril 20 mg Tablet 20 mg PO DAILY 30 Days Qty: 30 RF: 0 potassium chloride 10 mEq Tablet Extended Release 40 meq PO DAILY 30 Days Qty: 30 RF: 0 metoprolol tartrate 50 mg Tablet 50 mg PO BID 30 Days Qty: 60 RF: 0 folic acid 1 mg Tablet 1 mg PO DAILY 30 Days Qty: 30 RF: 0 Advair Diskus 100-50 mcg/dose blister with device 1 inh INHALATION DAILY 30 Days Qty: 60 RF: 0 Spiriva Respimat 1.25 mcg/actuation mist 2 inh INHALATION DAILY 30 Days Qty: 4 RF: 0 Lasix 40 mg tablet 40 mg PO DAILY 30 Days Qty: 30 RF: 0 Continued fluticasone propion-salmeterol [Advair Diskus] 100-50 mcg/dose Blister With Device 2 puff INHALATION BID RF: 0 albuterol sulfate [ProAir HFA] 90 mcg/actuation Hfa Aerosol Inhaler See Rx Instructions .ROUTE .COMPLEX Qty: 8.5 RF: 0 nicotine 14 mg/24 hr Patch 24 Hour 1 patch transdermal DAILY 30 Days Qty: 30 RF: 0 Aspir-81 81 mg Tablet,Delayed Release (Dr/Ec) 81 mg PO DAILY 30 Days Qty: 30 RF: 0 Nitrostat 0.4 mg Tablet, Sublingual 0.4 mg SUBLINGUAL Q5M PRN (Reason: Chest Pain) 3 Days Qty: 3 RF: 0 diltiazem HCl 120 mg Capsule,Extended Release 24hr 120 mg PO DAILY 30 Days Qty: 30 RF: 0 Eliquis 5 mg Tablet 5 mg PO BID 30 Days Qty: 60 RF: 0 Discontinued trazodone 50 mg Tablet 50 - 100 mg PO BEDTIME PRN (Reason: SLEEP) RF: 0 Spiriva Respimat 2.5 mcg/actuation Mist 2 puff INHALATION BID RF: 0 Tylenol 1 tab PO PRN RF: 0 prednisone 20 mg tablet See Rx Instructions .ROUTE .COMPLEX Qty: 11 RF: 0 Discharge Orders: Discharge Order (Routine); Ordered 06/19/19 Ordered By: Kristofer Powers Other Ambulatory Orders: Comprehensive Metabolic Panel (Routine) Timeframe: 1 Week Facility: [facility] - Location: Lab - Main Lab Ordered By: Kristofer Powers Referrals: Dejon Gomez MD [Physician] - 1 month (You have a hospital followup with Dr. Gomez at [facility] on July 17 at 9:00am. Any questions or appointment changes, please call them at [phone]) Michael Bruossard MD [Physician] - 1 month (You have a cardiology follow up with Dr. Broussard at [facility] on July 21 at 2:30pm. Any questions or appointment changes, please call them at [phone]) Kristofer Powers MD [Hospitalist] - 1 week (You have a hospital followup with Dr. Powers at [facility] on June 24 at 11:30am. You will have a CMP Bloodwork done at that time. Any questions or appointment changes, please call them at [phone]) Discharge Diet: Cardiac Discharge Activity: Resume usual activity Patient Instructions: Abdominal Hernia, Metoprolol (By mouth), Lisinopril (By mouth), Furosemide (By mouth), Potassium Chloride (By mouth), Folic Acid (By mouth), Fluticasone/Salmeterol (By breathing), Tiotropium (By breathing), Hydrocodone (By mouth), Heart Failure (GEN), Atrial Fibrillation (GEN), Using Oxygen at Home (DC), Inguinal Hernia (DC) Activity Restrictions/Additional Instructions: -Fluid restrictions less than 1500 cc/day, daily weights, if weight increases by more than 2 pounds take Lasix 40 twice daily for the next 2 days -Do blood work in 1 week -Follow-up with me in 1 week -Take metoprolol, Cardizem, Eliquis as prescribed -If you have lightheadedness, dizziness come back to the emergency room -For your right inguinal hernia, follow-up with general surgery, use [place] as prescribed sparingly, if sudden worsening of inguinal pain, this could be sign of life-threatening incarceration of the inguinal hernia, come back immediately to the emergency room - Spiriva and Advair as prescribed -Use oxygen as prescribed -Follow-up with me in 1 week, for consideration of hepatitis C treatment Discharge Attestations Time Spent in Discharge Care*: less than 30 min Quality Metrics Clinical Quality Measures During this hospital stay, did patient experience: None Coding Level of Care Code Acute Crib Attendant for Gretel Fwd Diagnoses Right inguinal hernia K40.90 Incisional hernia K43.2
--- NOTE | 2019-06-19 20:32 | PC.NURSE ---
[facility] called to notify nurse that they will not be able to pick the patient up until 8 am. Patient notified. Patient states he does not have anyone else to take him home at this time. Will continue to monitor patient.
[2019-06-20] VITALS: BP 132/65; PULSE 53; RESP 15; TEMP 36.3; O2SAT 99
[2019-06-20] MEDS: HYDROcodone-acetaminophen 5-325 mg Tablet 1 TAB PO (01:45)
[2019-06-20 02:56] VITALS: BP 138/82; PULSE 53; RESP 15; TEMP 36.3; O2SAT 99
[2019-06-20 04:15] LABS: Basophils % 0.2 %; Eosinophils # 0.2 10^3/uL (0.0-0.8); Eosinophils % 1.3 %; Hematocrit 38.3 % (42.0-52.0); Hemoglobin 12.7 g/dL (11.7-16.6); Lymphocytes # 2.5 10^3/uL (0.8-4.8); Mean Corpuscular HGB Conc 33.2 g/dL (30.0-36.0); Mean Corpuscular Hemoglobin 36.5 pg (28.0-34.0); Mean Corpuscular Volume 110.1 fL (80-94); Mean Platelet Volume 11.2 fL (7.4-10.4); Monocytes # 1.6 10^3/uL (0.2-0.9); Neutrophils # 7.7 10^3/uL (1.8-7.7); Neutrophils % 63.8 %; Nucleated Red Blood Cells % 0 %; Platelet Count 154 10^3/cmm (130-400); Red Blood Count 3.48 10^6/uL (4.1-5.3); Red Cell Distribution Width 14.5 % (12.1-15.1); White Blood Count 12.1 10^3/uL (4.0-10.0)
[2019-06-20 04:35] LABS: Alanine Aminotransferase 100 U/L (0-41); Albumin Level 2.5 g/dL (3.5-5.2); Alkaline Phosphatase 129 IU/L (40-130); Anion Gap 11.2 (5-19); Aspartate Amino Transferase 93 U/L (0-40); Blood Urea Nitrogen 28 mg/dL (8-23); Calcium 8.5 mg/dL (8.5-10.5); Carbon Dioxide 33 mmol/L (22-29); Chloride 94 mmol/L (98-107); Globulin 4.7 g/dL (1.3-4.6); Glucose 133 mg/dL (65-115); Osmolality Calculated 277 mOsm/kg (285-295); Potassium 4.2 mmol/L (3.5-5.1); Sodium 134 mmol/L (136-145); Total Bilirubin 0.5 mg/dL (0.15-1.2); Total Protein 7.2 g/dL (6.6-8.7)
[2019-06-20 07:12] VITALS: BP 152/82; PULSE 60; RESP 18; O2SAT 99
[2019-06-20] MEDS: metoprolol tartrate 50 mg Tablet PO (08:23)
[2019-06-20] MEDS: apixaban 5 mg Tablet PO (08:23)
[2019-06-20] MEDS: aspirin 81 mg EC Tablet PO (08:23)
[2019-06-20] MEDS: folic acid 1 mg Tablet PO (08:24)
[2019-06-20] MEDS: lisinopril 20 mg Tablet PO (08:24)
[2019-06-20] MEDS: dilTIAZem ER (24HR) 120 mg Capsule PO (08:24)
[2019-06-20 11:11] VITALS: BP 149/75; PULSE 58; RESP 18; O2SAT 94
--- NOTE | 2019-06-20 12:49 | PC.NURSE ---
The patients transport finally arrived, there was a miscommunication on [facility] part, they decided to pick him up this morning instead of last night then when we called them as they should have been here at 8 am and they said that they hadnt called anyone to assign his leaf size picker to. took a while for them to get it scheduled and they got here about 12:00 while patient had just gotten his lunch. we needed to hurry the patient a bit on some of his lunch offering to plate the rest and he could take it with him since we were told [facility] wouldnt wait for him to finish and it could have been hours before they got back here. patient was stable if a bit disgruntled at the fernandez of his meal but alert and oriented, o2 in tow. Taken to the ER exit via wheelchair with O2 in tow and taken to his home
== END 2019-06-20 12:10 | disposition home or self-care (01) | DRG 291 ==
LOC: ER 20:35 → ICU 21:33 → CSU 06-16 19:53
PROVIDERS: Admitting Provider Internal Medicine; Emergency Provider Emergency Medicine; Family Provider Family Medicine; Visit Provider Family Medicine
DX: I11.0 Hypertensive heart disease with heart failure (principal); I50.31 Acute diastolic (congestive) heart failure; K42.9 Umbilical hernia without obstruction or gangrene; K40.90 Unilateral inguinal hernia, without obstruction or gangrene, not specified as recurrent; I48.91 Unspecified atrial fibrillation; K43.2 Incisional hernia without obstruction or gangrene; J44.9 Chronic obstructive pulmonary disease, unspecified; Z99.81 Dependence on supplemental oxygen; B19.20 Unspecified viral hepatitis C without hepatic coma; F17.210 Nicotine dependence, cigarettes, uncomplicated; Z79.01 Long term (current) use of anticoagulants; Z79.82 Long term (current) use of aspirin; I25.10 Atherosclerotic heart disease of native coronary artery without angina pectoris; K21.9 Gastro-esophageal reflux disease without esophagitis; G47.00 Insomnia, unspecified; Z91.14 Patient's other noncompliance with medication regimen
CPT/HCPCS: 12345; 36415; 36600; 71045; 71250; 74177; 80053; 80074; 81001; 82607; 82728; 82746; 82805; 83735; 83880; 84100; 84484; 85025; 85610; 87040; 87804; 93971; 94003; 94640; 94660; 96375; 99283; G0378; J1170; J1940; J2270; J2930; J3490; Q9967

== ENCOUNTER 2019-07-13 16:02 | Inpatient (IN) | payer MEDICARE, MEDICAID, SELFPAY ==
[2019-07-13] VITALS (39 sets, daily range): BP systolic 103–167; BP diastolic 71–134; PULSE 62–163; RESP 13–37; TEMP 36.6; O2SAT 88–100; BMI 28.8
--- NOTE | 2019-07-13 16:12 | XR_ITS ---
WS: [id number] PORTABLE CHEST HISTORY: chest pain COMPARISON: 06/19/2019 Hyperinflated lungs. Blunting of the costophrenic angles bilaterally. There is atelectasis at the tiny g bases which is subsegmental. Mild interstitial thickening at the lung bases, RIGHT greater than LEF T. No pneumothorax. Cardiac size: Mildly enlarged cardiac silhouette. Mediastinum/Aorta: Normal mediastinum. No osseous abnormality seen. XR/XR chest 1V portable [id number] IMPRESSION: 1. Chronic emphysema. 2. Small pleural effusions versus pleural thickening at the lung bases. 3. Mild interstitial thickening at the lung bases. May be chronic or due to mi ld pneumonitis.
--- NOTE | 2019-07-13 16:12 | ECG_ITS ---
Measurements Intervals [place] Rate: 160 P: IA: 0 QRS: 50 QRSD: 85 T: -77 QT: 249 QTc: 406 ATRIAL FLUTTER/TACHYCARDIA WITH RAPID VENTRICULAR RESPONSE MODERATE ST DEPRESSION [0.05+ mV ST DEPRESSION] ABNORMAL QRS-T ANGLE [QRS-T AXIS DIFFERENCE > 60] CRITICAL TEST RESULT Compared to ECG 06/05/2019 23:13:20 ST (T wave) deviation now present Sinus rhythm no longer present Electronically Signed On 07-14-2019 8:00:38 CDT by Jay Solorio M.D. [email or web address]
--- NOTE | 2019-07-13 16:14 | ED_ITS ---
HPI - Chest Pain General: Chief Complaint: Chest Pain Stated Complaint: SOB; CP Time Seen by Provider: 07/13/19 16:07 History of Present Illness: HPI narrative: Chest pains, shortness of breath, racing heart beat for the past several days. MD complaint: chest pain, chest heaviness and chest discomfort Pertinent past history: coronary artery disease Onset (ago): day(s) Timing of current episode: constant and increasing Prior episodes: Yes Onset: during rest Pain location: substernal Pain radiation: none Quality: heaviness Relieving factors: nothing Exacerbating factors: exertion Associated symptoms: Reports dyspnea, nausea and palpitations; Deny abdominal pain, fever(s) or vomiting Review of Systems Const: Reports: chills; Denies: fever, body aches or change in appetite Card: Reports: chest pain, palpitations, irregular heart rhythm, shortness of breath on exertion and shortness of breath when lying down Resp: Reports: shortness of breath GI: Reports: nausea; Denies: abdominal pain or vomiting [facility] PFSH: Medical History A-fib Back pain COPD (chronic obstructive pulmonary disease) Coronary artery disease GERD (gastroesophageal reflux disease) Hypertension Incisional hernia Insomnia Non-compliant behavior Surgical History H/O exploratory laparotomy H/O laminectomy History of carpal tunnel surgery History of cholecystectomy S/P laparoscopic appendectomy Family History Other Hypertension Social History Smoking and tobacco status: current some day smoker Alcohol intake: never Lives independently: Yes Housing: House Physical Exam Const: COMMON NORMALS: oriented x3 and alert GENERAL APPEARANCE: in distres s Neck/C-Spine: COMMON NORMALS: full ROM, no lymphadenopathy and no JVD Resp: COMMON NORMALS: no retractions EFFORT & INSPECTION: Yes respiratory distress, Yes uses accessory muscles and Yes audible wheezes Cardio: COMMON NORMALS: no JVD JUGULAR VENOUS DISTENTION: no JVD RATE: tachycardic RHYTHM: abnormal rhythm Extremity: COMMON NORMALS: normal to inspection, full ROM and normal capillary refill Neuro: COMMON NORMALS: oriented x3 SENSORIUM/ORIENTATION: Yes alert Skin: COMMON NORMALS: no rashes or lesions noted, no wounds, skin turgor normal, no jaundice, no petechiae and no mottling GENERAL SKIN EXAM: no rashe s or lesions noted and turgor normal Course Vital Signs: Vital signs: Vital Signs Temperature 97.8 F 07/13/19 16:03 Pulse Rate 162 H 07/13/19 16:03 Respiratory Rate 26 H 07/13/19 16:03 Blood Pressure 151/122 07/13/19 16:03 Pulse Oximetry 100 07/13/19 16:03 Discharge Plan Discharge Prescriptions: No Action fluticasone propion-salmeterol [Advair Diskus] 100-50 mcg/dose Blister With Device 2 puff INHALATION BID RF: 0 albuterol sulfate [ProAir HFA] 90 mcg/actuation Hfa Aerosol Inhaler See Rx Instructions .ROUTE .COMPLEX Qty: 8.5 RF: 0 lisinopril 20 mg Tablet 20 mg PO DAILY 30 Days Qty: 30 RF: 0 potassium chloride 10 mEq Tablet Extended Release 40 meq PO DAILY 30 Days Qty: 30 RF: 0 metoprolol tartrate 50 mg Tablet 50 mg PO BID 30 Days Qty: 60 RF: 0 folic acid 1 mg Tablet 1 mg PO DAILY 30 Days Qty: 30 RF: 0 Advair Diskus 100-50 mcg/dose blister with device 1 inh INHALATION DAILY 30 Days Qty: 60 RF: 0 Spiriva Respimat 1.25 mcg/actuation mist 2 inh INHALATION DAILY 30 Days Qty: 4 RF: 0 Lasix 40 mg tablet 40 mg PO DAILY 30 Days Qty: 30 RF: 0 nicotine 14 mg/24 hr Patch 24 Hour 1 patch transdermal DAILY 30 Days Qty: 30 RF: 0 Aspir-81 81 mg Tablet,Delayed Release (Dr/Ec) 81 mg PO DAILY 30 Days Qty: 30 RF: 0 Nitrostat 0.4 mg Tablet, Sublingual 0.4 mg SUBLINGUAL Q5M PRN (Reason: Chest Pain) 3 Days Qty: 3 RF: 0 diltiazem HCl 120 mg Capsule,Extended Release 24hr 120 mg PO DAILY 30 Days Qty: 30 RF: 0 Eliquis 5 mg Tablet 5 mg PO BID 30 Days Qty: 60 RF: 0 Coding Level of Care Code ED Cinder Worker for Chg Fwd
[2019-07-13 16:34] LABS: Basophils % 0.4 %; Eosinophils # 0.1 10^3/uL (0.0-0.8); Eosinophils % 0.9 %; Hematocrit 40.2 % (42.0-52.0); Hemoglobin 12.8 g/dL (11.7-16.6); Lymphocytes # 1.6 10^3/uL (0.8-4.8); Lymphocytes % 15.4 %; Mean Corpuscular HGB Conc 31.8 g/dL (30.0-36.0); Mean Corpuscular Hemoglobin 35.9 pg (28.0-34.0); Mean Corpuscular Volume 112.6 fL (80-94); Mean Platelet Volume 11.4 fL (7.4-10.4); Monocytes % 9.1 %; Neutrophils # 7.8 10^3/uL (1.8-7.7); Neutrophils % 73.4 %; Nucleated Red Blood Cells % 0 %; Platelet Count 159 10^3/cmm (130-400); Red Blood Count 3.57 10^6/uL (4.1-5.3); Red Cell Distribution Width 14.3 % (12.1-15.1); White Blood Count 10.6 10^3/uL (4.0-10.0)
[2019-07-13 16:54] LABS: Troponin(5th) Baseline 59 ng/mL (0-15)
[2019-07-13 17:01] LABS: Alanine Aminotransferase 75 U/L (0-41); Albumin Level 3.1 g/dL (3.5-5.2); Alkaline Phosphatase 152 IU/L (40-130); Anion Gap 14.3 (5-19); Aspartate Amino Transferase 80 U/L (0-40); Blood Urea Nitrogen 24 mg/dL (8-23); Calcium 9.2 mg/dL (8.5-10.5); Carbon Dioxide 23 mmol/L (22-29); Chloride 100 mmol/L (98-107); Creatinine Clr Calc Pharmacy 89.1475; Glucose 112 mg/dL (65-115); NT Pro B Type Natriuretic Pept 6078 pg/mL (0-125); Osmolality Calculated 272 mOsm/kg (285-295); Potassium 5.3 mmol/L (3.5-5.1); Sodium 132 mmol/L (136-145); Total Bilirubin 0.7 mg/dL (0.15-1.2); Total Protein 7.1 g/dL (6.6-8.7)
[2019-07-13 17:06] LABS: Influenza A by IFA Negative (Negative); Influenza B by IFA Negative (Negative)
[2019-07-13 17:31] LABS: INR 0.97 (0.8-1.2)
--- NOTE | 2019-07-13 17:36 | CTR_ITS ---
PROCEDURE INFORMATION: Exam: CT Chest Without Contrast Exam date and time: 07/13/2019 7:19 PM Age: 73 years old Clinical indication: Mass, lump, or swelling; Lower; Shortness of breath; Additional info: Copd/pna TECHNIQUE: Imaging protocol: Computed tomography of the chest without contrast. Total DLP: 1831.43 mGy-cm Radiation optimization: All CT scans at this facility use at least one of these dose optimization techniques: automated exposure control; mA and/or kV adjustment per patient size (includes targeted exams where dose is matched to clinical indication); or iterative reconstruction. COMPARISON: CT abdomen pelvis w con* [id number] 06/17/2019 5:24 PM FINDINGS: Lungs: Moderate pulmonary emphysema is appreciated. Multiple subcentimeter nodular densities are again seen in both lungs, which appear stable. Right basilar opacity likely represents atelectasis. Pleural space: A small right pleural effusion is noted. Heart: The heart is normal in size. Coronary artery calcifications are noted. A small pericardial effusion is present. Aorta: Unremarkable. No aortic aneurysm. Lymph nodes: Unremarkable. No enlarged lymph nodes. Bones/joints: Unremarkable. No acute fracture. Soft tissues: Unremarkable. IMPRESSION: 1. Moderate pulmonary emphysema and right basilar atelectasis. A small right pleural effusion is noted. 2. Stable indeterminate subcentimeter bilateral lung nodules PROCEDURE INFORMATION: Exam: CT Abdomen And Pelvis Without Contrast Exam date and time: 07/13/2019 7:19 PM Age: 73 years old Clinical indication: Mass, lump, or swelling; Lower; Shortness of breath; Additional info: Copd/pna TECHNIQUE: Imaging protocol: Computed tomography of the abdomen and pelvis without contrast. Total DLP: 1831.43 mGy-cm Radiation optimization: All CT scans at this facility use at least one of these dose optimization techniques: automated exposure control; mA and/or kV adjustment per patient size (includes targeted exams where dose is matched to clinical indication); or iterative reconstruction. COMPARISON: CT abdomen pelvis w con* [id number] 06/17/2019 5:24 PM FINDINGS: Liver: Normal. No mass. Gallbladder and bile ducts: The gallbladder has been removed. No biliary ductal dilatation. Pancreas: Normal. No ductal dilation. Spleen: Normal. No splenomegaly. Adrenals: A 2.3 cm left adrenal nodule is noted. The right adrenal gland appears normal. Kidneys and ureters: A 2.5 cm left renal cyst is noted. Tiny renal stones are present in the left kidney. No ureteral stone or hydronephrosis. Stomach and bowel: Small right indirect inguinal hernia containing a short segment loop of small bowel is also present. A small left indirect inguinal hernia containing fat is appreciated. Appendix: The appendix has been resected. Intraperitoneal space: Unremarkable. No free air. No significant fluid collection. Vasculature: Unremarkable. No abdominal aortic aneurysm. Lymph nodes: Unremarkable. No enlarged lymph nodes. Bladder: Unremarkable as visualized. Reproductive: Unremarkable as visualized. Bones/joints: Right hip arthroplasty is noted. L4-L5 spinal fusion changes are appreciated. No acute fracture. Soft tissues: A moderate-sized left periumbilical hernia containing several loops of small bowel is noted. No intestinal wall thickening . Several loops of small bowel proximal to the hernia are mildly distended. No intestinal obstruction. CT/CT chest abd pel wo con IMPRESSION: 1. Moderate sized left periumbilical hernia containing small bowel. No evidence of strangulation. Partial obstruction changes are noted. 2. Small right inguinal hernia containing short segment loop of small bowel is also appreciated. 3. Nephrolithiasis. No ureteral stone or hydronephrosis. 4. Left adrenal 2.[address] or MRI adrenal protocol may allow further assessment. Radiation Dose CTDIVOL = (mGy): DLP = 1831.43~1831.43 (mGy-cm)
--- NOTE | 2019-07-13 17:38 | PM.HP ---
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 Patient was discharged last month when he was admitted for acute CHF exacerbation, and A. fib with RVR. Patient has been very noncompliant in the past and this time as well he has not seen his primary care physician since the last discharge. He states he has not been able to take medication for over a week as he ran out of them. He presented to the ER today complaining of extreme difficulty in breathing and chest pain which is been increasing over last 1 week. Difficulty in breathing is aggravated on lying down and walking small steps. Chest pain is more central and is not associated with nausea vomiting, palpitations, dizziness, is nonradiating, not referring. His symptoms are associated with palpitations which are on and off. He denies of having any flulike symptoms, cough, fever, expectoration. He lives with his son and grandchildren who moved in with him around 4 months ago and who are not having any flulike symptoms as well. Patient is also complaining of increased swelling in his left leg. He denies of having any pain, trauma to the leg. Patient is also complaining of pain in his incisional hernia and states the pain has been increasing for last 3 to 4 days. He states he is regular with his bowel movement which are well formed denies having any melena or bleeding in the bowel movements. His last bowel movement was yesterday evening. He denies of having any nausea, vomiting and states his appetite is well-maintained. In the ER he was found to be in A. fib with RVR so started on Cardizem drip. On my examination patient was in A. fib with RVR on Cardizem 10 and looks extremely uncomfortable while being on nonrebreather mask as he was feeling out of breath. He has not received any Lasix in the ER. Review of Systems Const: Denies: fever, chills, body aches, change in appetite, malaise, night sweats, diaphoresis, change in sleep pattern, daytime sleepiness or snoring Eyes: Denies: change in vision, blurry vision, photophobia, eye discomfort or eye discharge ENMT: Denies: throat pain, enlarged tonsils, hoarseness, mouth pain, oral sores/lesions, dry mouth, tinnitus, nasal congestion or post nasal drip Card: Reports: chest pain, palpitations, irregular heart rhythm, edema and swelling of feet/ankles; Denies: lightheadedness, syncope, pre-syncope, shortness of breath on exertion, shortness of breath when lying down, leg pain with exertion or bluish discoloration of hands/feet Resp: Reports: shortness of breath; Denies: productive cough, non-productive cough, wheezing, stridor, pain on inspiration, change in phlegm color, coughing up blood or chest congestion GI: Reports: abdominal pain; Denies: nausea, vomiting, vomiting blood, coffee grounds in vomit, difficulty swallowing, heartburn/indigestion, diarrhea, constipation, bloating, cramping, change in bowel habits, painful bowel movements, blood in stool or black tarry stool : Denies: flank pain, difficulty urinating, painful urination, urinary frequency, urinary urgency, urinary hesitancy, urinary dribbling, difficulty starting urination, change in urine stream, nighttime urination or blood in urine Musc: Denies: neck pain, back pain, extremity pain, joint pain, joint swelling, redness, joint stiffness or limited range of motion Neuro: Denies: headache, numbness in extremities, weakness in extremities, changes in sensation, lack of coordination, difficulty walking, frequent falls, dizziness, vertigo, confusion, slurred speech, difficulty communicating thoughts or seizure-like activity Psych: Denies: anxiety, depression, mood swings, panic attacks, hopelessness or irritability Endo: Denies: excessive urination, excessive thirst, tired all the time, cold intolerance, excessive sweating, flushing or heat intolerance Juan C/Lymph: Denies: easy bruising or easy bleeding All/Imm: Denies: tongue swelling, facial swelling or acute wheezing Medications/Allergies Allergies Allergy/AdvReac Type Severity Reaction Status Date / Time No Known Allergies Allergy Verified 06/05/19 20:03 PFSH Acute PFSH: Medical History A-fib Back pain COPD (chronic obstructive pulmonary disease) Coronary artery disease GERD (gastroesophageal reflux disease) Hypertension Incisional hernia Insomnia Non-compliant behavior Surgical History H/O exploratory laparotomy H/O laminectomy History of carpal tunnel surgery History of cholecystectomy S/P laparoscopic appendectomy Family History Other Hypertension Social History Smoking and tobacco status: current some day smoker Alcohol intake: never Lives independently: Yes Housing: House Vitals/I&O/Wt Last Vital Signs Temp 97.8 F 07/13/19 16:03 Pulse 160 H 07/13/19 16:24 Resp 26 H 07/13/19 16:24 BP 156/120 07/13/19 16:24 Pulse Ox 100 07/13/19 16:24 Weight last 48 hrs Weight 86.183 kg Physical Exam Narrative: EXAM NARRATIVE: General: No acute distress, AO x3, in acute distress because of difficulty in breathing, on nonrebreather HEENT: PERRLA, pupils bilaterally equal and reactive Chest: Normal vesicular breath sounds bilaterally, bilateral fine crackles present in middle chest no rubs. CVS: S1-S2 irregular, irregularly irregular, pansystolic murmur at the apex, no gallop no murmur Abdomen: Soft, nontender, no organomegaly, bowel sounds present but sluggish, incisional hernia present in left periumbilical region, bowel sounds present in the incisional hernia, tenderness present in the incisional hernia. Neuro: No focal deficits, no facial deformity, AO x3, power 5/5 in all limbs. Extremities: Left leg more swollen than right Data : 07/14/19 04:20 07/14/19 04:20 A&P Assessment and plan (1) Atrial fibrillation with RVR: Status: Acute (2) Acute decompensated heart failure: Status: Acute (3) Heart failure with preserved ejection fraction, borderline, class III: Status: Acute (4) Acute exacerbation of chronic obstructive airways disease: Status: Acute (5) Incisional hernia: Status: Acute (6) Hepatitis: Status: Acute (7) Abnormal liver enzymes: Status: Acute Additional A&P Information A. fib with RVR: Patient is on Cardizem of 10 mg in the ER. Increase Cardizem to 15. 30 minutes after increasing the Cardizem if the heart rate continues to remain more than 120 bpm will give Cardizem 10 push followed by Cardizem 60 mg twice daily with first dose today evening. Telemetry. Eliquis 5 mg twice daily. Shortness of breath: Most likely because of heart failure. Chances of pneumonia are less. Check procalcitonin, check CT chest without contrast to rule out any consolidation. Acute decompensated diastolic heart failure: Most likely because of A. fib with RVR. Change oral dose to IV 40 mg Lasix daily. Dose right now. Daily weights. Strict input and output charting. Head and elevation. Transaminitis: Due to history of hepatitis C and congested hepatomegaly. Continue to monitor CMP daily. Incarcerated hernia: Was seen last time by Dr. Jason do. CT abdomen without contrast stat to rule out obstruction of bowel in the hernia. Hypertension: We will hold off on the lisinopril for now and could want to increase the Cardizem dose as much as possible. COPD: History of bullous emphysema. Continue home dose of Advair. Will start on Spiriva as well. Oxygen supplementation keeping saturation over 90%. Lower limb swelling: Lower limb Dopplers to rule out DVT. No sign cellulitis at present. Full code. Becky will work for DVT prophylaxis Cardiac diet. Fluid restriction up to 1500 cc/day. Attestations Medical Necessity Statement*: Admission for more than 2 midnights for acute decompensated heart failure. Admit to ICU. Time Spent in Patient Care: Greater than 35 minutes Coding Level of Care Code Acute Policy Officer for [facility] Fwd Diagnoses Atrial fibrillation with RVR I48.91 Acute decompensated heart failure I50.9 Heart failure with preserved ejection fraction, borderline, class III I50.30 Acute exacerbation of chronic obstructive airways disease J44.1 Incisional hernia K43.2 Hepatitis K75.9 Abnormal liver enzymes R74.8
--- NOTE | 2019-07-13 18:12 | ECG_ITS ---
Measurements Intervals [place] Rate: 89 P: DC: 0 QRS: 59 QRSD: 97 T: -62 QT: 396 QTc: 483 ATRIAL FIBRILLATION POSSIBLE ANTERIOR MYOCARDIAL INFARCTION [30 ms Q WAVE IN V3/V4, OR R < 0.2 mV IN V4], OF INDETERMINATE AGE MODERATE T-WAVE ABNORMALITY, CONSIDER INFERIOR ISCHEMIA [-0.1+ mV T WAVE IN II/aVF] Compared to ECG 06/05/2019 23:13:20 Myocardial infarct finding now present T-wave abnormality now present Possible ischemia now present Sinus rhythm no longer present Electronically Signed On 07-14-2019 8:03:18 CDT by Jay Solorio M.D. [id number]
[2019-07-13] MEDS: morphine 4 mg/mL SDV 1 mL IVP (18:24)
[2019-07-13 18:33] LABS: Procalcitonin 0.12 ng/mL (0-0.5)
[2019-07-13 19:07] LABS: Troponin 5 2HR 53.73 ng/mL (0-15)
[2019-07-13 19:15] LABS: Troponin 5 2HR Delta -5.27 ABS# (0-10)
--- NOTE | 2019-07-13 22:12 | ECG_ITS ---
Measurements Intervals [place] Rate: 158 P: [place]: 0 QRS: 53 QRSD: 83 T: 42 QT: 253 QTc: 411 ATRIAL FLUTTER/TACHYCARDIA WITH RAPID VENTRICULAR RESPONSE MODERATE ST DEPRESSION [0.05+ mV ST DEPRESSION] CRITICAL TEST RESULT Compared to ECG 06/05/2019 23:13:20 ST (T wave) deviation now present Sinus rhythm no longer present Electronically Signed On 07-14-2019 8:02:54 CDT by Jay Solorio M.D. [id number]
[2019-07-13] MEDS: dilTIAZem 60 mg Tablet PO (22:27)
[2019-07-13] MEDS: morphine 4 mg/mL SDV 1 mL 1 MG IVP (22:57)
[2019-07-13] MEDS: HYDROcodone-acetaminophen 5-325 mg Tablet 1 TAB PO (23:51)
[2019-07-14] VITALS (61 sets, daily range): BP systolic 105–162; BP diastolic 66–99; PULSE 57–108; RESP 14–26; TEMP 36.6–36.9; O2SAT 78–100; BMI 28.8
[2019-07-14] MEDS: morphine 4 mg/mL SDV 1 mL 1 MG IVP ×2 (03:43→11:58)
[2019-07-14 04:43] LABS: Basophils % 0.1 %; Hematocrit 34.7 % (42.0-52.0); Hemoglobin 11.4 g/dL (11.7-16.6); Lymphocytes % 11.9 %; Mean Corpuscular HGB Conc 32.9 g/dL (30.0-36.0); Mean Corpuscular Hemoglobin 35.8 pg (28.0-34.0); Mean Corpuscular Volume 109.1 fL (80-94); Mean Platelet Volume 11.5 fL (7.4-10.4); Monocytes # 0.7 10^3/uL (0.2-0.9); Monocytes % 8.4 %; Neutrophils # 6.6 10^3/uL (1.8-7.7); Neutrophils % 78.4 %; Nucleated Red Blood Cells % 0 %; Platelet Count 158 10^3/cmm (130-400); Red Blood Count 3.18 10^6/uL (4.1-5.3); Red Cell Distribution Width 13.7 % (12.1-15.1); White Blood Count 8.4 10^3/uL (4.0-10.0)
[2019-07-14 05:07] LABS: Alanine Aminotransferase 65 U/L (0-41); Albumin Level 2.8 g/dL (3.5-5.2); Alkaline Phosphatase 123 IU/L (40-130); Anion Gap 12.1 (5-19); Aspartate Amino Transferase 61 U/L (0-40); Blood Urea Nitrogen 34 mg/dL (8-23); Calcium 8.8 mg/dL (8.5-10.5); Carbon Dioxide 29 mmol/L (22-29); Chloride 96 mmol/L (98-107); Globulin 4.1 g/dL (1.3-4.6); Glucose 164 mg/dL (65-115); Osmolality Calculated 275 mOsm/kg (285-295); Potassium 5.1 mmol/L (3.5-5.1); Sodium 132 mmol/L (136-145); Total Bilirubin 0.5 mg/dL (0.15-1.2); Total Protein 6.9 g/dL (6.6-8.7)
[2019-07-14] MEDS: apixaban 5 mg Tablet PO ×2 (08:00→17:29)
[2019-07-14] MEDS: HYDROcodone-acetaminophen 5-325 mg Tablet 1 TAB PO ×3 (08:00→20:58)
[2019-07-14] MEDS: aspirin 81 mg EC Tablet PO (08:00)
[2019-07-14] MEDS: dilTIAZem 60 mg Tablet PO (08:00)
--- NOTE | 2019-07-14 11:44 | P.PN_ITS ---
Subjective Subjective: Interval history: Overnight patient has remained in the ICU. Cardizem drip was stopped early in the morning. On examination patient is sitting at the bedside complaining of pain in his hernia. Vitals are A. fib 80 bpm saturation 92% on 3 L nasal cannula. Patient has been noncompliant with his nasal cannula. He complains of mild shortness of breath, denies any herbal, dizziness, palpitations, cough. Patient has not had any bowel movement. Patient seems mildly confused on examination. We will check ABG to rule out hypercapnia. Vitals and labs noted. Vitals/I&O/Wt Last Vital Signs Temp 98.4 F 07/14/19 08:00 Pulse 75 07/14/19 11:15 Resp 17 07/14/19 11:15 BP 134/73 07/14/19 11:15 Pulse Ox 100 07/14/19 11:15 07/13/19 07/14/19 07/14/19 22:59 06:59 14:59 Intake Total 1200 / 1200 38.167 / 1238.167 240 / 240 Output Total 400 / 400 600 / 1000 800 / 800 Balance 800 / 800 -561.833 / 238.167 -560 / -560 Weight last 48 hrs Weight 86.183 kg Weight 86.183 kg Physical Exam Narrative: EXAM NARRATIVE: General: No acute distress, AO x3, mild distress because of pain in his belly, oxygen supplementation to nasal cannula. HEENT: PERRLA, pupils bilaterally equal and reactive Chest: Normal vesicular breath sounds bilaterally, bilateral fine crackles present in middle chest no rubs. CVS: S1-S2 irregular, irregularly irregular, pansystolic murmur at the apex, no gallop no murmur Abdomen: Soft, nontender, no organomegaly, bowel sounds present but sluggish, incisional hernia present in left periumbilical region, bowel sounds present in the incisional hernia, tenderness present in the incisional hernia. Neuro: No focal deficits, no facial deformity, AO x3, power 5/5 in all limbs. Extremities: Left leg more swollen than right Data : 07/14/19 04:20 07/14/19 04:20 A&P Assessment and plan (1) Atrial fibrillation with RVR: Status: Acute (2) Acute decompensated heart failure: Status: Acute (3) Heart failure with preserved ejection fraction, borderline, class III: Status: Acute (4) Acute exacerbation of chronic obstructive airways disease: Status: Acute (5) Incisional hernia: Status: Acute (6) Hepatitis: Status: Acute (7) Abnormal liver enzymes: Status: Acute Additional A&P Information A. fib with RVR: Cardizem drip stopped early in the morning. Will give Cardizem 10 mg IV stat as patient's heart rate is going in 100-110 bpmon mild ambulation. Increase Cardizem to 90 mg every 8 hours. We will try to hold off on continuing the beta-radha for now. Monitor blood measures. Continue with telemetry. Eliquis 5 mg twice daily. Shortness of breath: Most likely because of heart failure. Chances of pneumonia are less. Procalcitonin negative, CT chest negative for any acute infiltrate. Patient remains afebrile Acute decompensated diastolic heart failure: Most likely because of A. fib with RVR. Continue with IV Lasix 40 mg daily. Urine output on the lower side and patient sounds in mild fluid overload so we will give him an extra dose of Lasix 40 mg r ight now. Daily weights. Strict input and output charting. Head and elevation. Transaminitis: Due to history of hepatitis C and congested hepatomegaly. Resolving with diuresis. Check hepatitis C viral load. Continue to monitor CMP daily. Incarcerated hernia: Was seen last time by Dr. Jason do. CT abdomen shows no strangulation but mild changes of partial obstruction. Will consult surgery. Hypertension: We will hold off on the lisinopril for now and could want to increase the Cardizem dose as much as possible. COPD: History of bullous emphysema. Continue home dose of Advair. Will start on Spiriva as well. Oxygen supplementation keeping saturation over 90%. Lower limb swelling: Lower limb Dopplers to rule out DVT still awaited. No sign cellulitis at present. Full code. Becky will work for DVT prophylaxis Cardiac diet. Fluid restriction up to 1500 cc/day. Attestations Medical Necessity Statement*: A. fib with RVR, congestive heart failure. Time Spent in Patient Care: Greater than 35 minutes Coding Level of Care Code Acute [employer] Faculty Member for [facility] Fwd Diagnoses Atrial fibrillation with RVR I48.91 Acute decompensated heart failure I50.9 Heart failure with preserved ejection fraction, borderline, class III I50.30 Acute exacerbation of chronic obstructive airways disease J44.1 Incisional hernia K43.2 Hepatitis K75.9 Abnormal liver enzymes R74.8
[2019-07-14] MEDS: nicotine 14 mg Patch 1 PATCH TRANSDERMA (11:59)
[2019-07-14 13:38] LABS: ABG PH Result 7.41 (7.35-7.45); Alveolar-Arterial Oxygen Gradi 62.9 mmHg (5-10); Blood Gas Allen Test Pos; Blood Gas Sample Site Radial, left; Blood Gas Sample Type Arterial; Carboxyhemoglobin 0.7 %THgb (0.4-20.1); HCO3 ABG 28.2 mmol/L (22-26); HGB O2 Sat 94.4 % (95-100); Ionized Calcium Level - ABG 1.2 mmol/L (1.1-1.4); Oxygen Device NC; PO2 ABG 80.2 mmHg (80.0-100.0); Potassium Level - ABG 4.6 mmol/L (3.5-5.0); Total Hemoglobin 11.7 g/dL (14-18)
[2019-07-14] MEDS: ipratropium 0.5 mg/2.5 mL Neb INHALATION ×2 (14:03→21:09)
[2019-07-14] MEDS: dilTIAZem 60 mg Tablet 90 MG PO ×2 (14:56→20:59)
[2019-07-14] MEDS: FUROsemide 10 mg/mL SDV 4mL 40 MG IVP ×2 (14:57→17:29)
--- NOTE | 2019-07-14 18:17 | XR_ITS ---
WS: [id number] ABDOMEN 2 VIEW(S) HISTORY: partial obstruction COMPARISON: 02/15/2015. CT 07/13/2019. Moderate fecal retention throughout the colon. No free air is identified. No high-grade obstruction. No suspicious calcifications or masses. Advanced degenerative changes and osteopenia. Prior fixation at L4-5. Prior RIGHT hip arthroplasty. Prior cholecystectomy. XR/XR abdomen min 2V [id number] IMPRESSION: 1. Moderate constipation. 2. No free air or high-grade obstruction.
--- NOTE | 2019-07-14 19:13 | US_ITS ---
WS: [id number] RIGHT UPPER QUADRANT ULTRASOUND HISTORY: Abdominal pain. COMPARISON: 06/07/2019 Liver: 19.0 cm in length. Moderately enlarged liver with mild irregularity along the surface. No bile duct dilatation or mass. Gallbladder: Prior cholecystectomy. CBD: 0.6 cm Pancreas: Not well visualized. Right kidney: 9.6 cm in length. Normal echogenicity with no mass or hydronephrosis. Aorta and IVC: Unremarkable. No ascites. US/US liver [id number] IMPRESSION: 1. Prior cholecystectomy. 2. Moderate hepatomegaly. Findings suggestive of cirrhosis.
[2019-07-14] MEDS: trazodone 50 mg Tablet PO (22:58)
[2019-07-15] VITALS (36 sets, daily range): BP systolic 103–182; BP diastolic 56–135; PULSE 72–143; RESP 13–33; TEMP 36.7–37.1; O2SAT 87–100; BMI 28.8
[2019-07-15 04:51] LABS: Basophils % 0.1 %; Eosinophils % 0.1 %; Hematocrit 34.2 % (42.0-52.0); Hemoglobin 11.6 g/dL (11.7-16.6); Lymphocytes # 2.3 10^3/uL (0.8-4.8); Lymphocytes % 12.6 %; Mean Corpuscular HGB Conc 33.9 g/dL (30.0-36.0); Mean Corpuscular Hemoglobin 37.1 pg (28.0-34.0); Mean Corpuscular Volume 109.3 fL (80-94); Mean Platelet Volume 11.1 fL (7.4-10.4); Monocytes # 1.9 10^3/uL (0.2-0.9); Monocytes % 10.7 %; Neutrophils # 13.6 10^3/uL (1.8-7.7); Neutrophils % 75.6 %; Nucleated Red Blood Cells % 0 %; Platelet Count 154 10^3/cmm (130-400); Red Blood Count 3.13 10^6/uL (4.1-5.3)
[2019-07-15 05:22] LABS: Alanine Aminotransferase 60 U/L (0-41); Alkaline Phosphatase 121 IU/L (40-130); Anion Gap 14.3 (5-19); Aspartate Amino Transferase 58 U/L (0-40); Blood Urea Nitrogen 33 mg/dL (8-23); Calcium 9.2 mg/dL (8.5-10.5); Carbon Dioxide 29 mmol/L (22-29); Chloride 95 mmol/L (98-107); Globulin 4.1 g/dL (1.3-4.6); Glucose 152 mg/dL (65-115); Osmolality Calculated 278 mOsm/kg (285-295); Potassium 4.3 mmol/L (3.5-5.1); Sodium 134 mmol/L (136-145); Total Bilirubin 0.4 mg/dL (0.15-1.2); Total Protein 7.1 g/dL (6.6-8.7)
[2019-07-15] MEDS: apixaban 5 mg Tablet PO ×2 (07:21→18:23)
[2019-07-15] MEDS: aspirin 81 mg EC Tablet PO (07:21)
[2019-07-15] MEDS: HYDROcodone-acetaminophen 5-325 mg Tablet 1 TAB PO ×3 (07:21→20:29)
[2019-07-15] MEDS: dilTIAZem 60 mg Tablet 90 MG PO ×3 (07:22→22:12)
--- NOTE | 2019-07-15 07:39 | PC.NURSE ---
Pt up to urinate, HR went up to 160's. Cardizem 90 mg given early.
--- NOTE | 2019-07-15 08:16 | XR_ITS ---
WS: [id number] PORTABLE CHEST HISTORY: Pneumonia COMPARISON: 07/13/2019 Increasing opacification at the RIGHT lung base. New increasing opacification is minimal at the LEFT lung base. Hyperinflated lungs with emphysema. No pleural effusion or pneumothorax. Cardiac size: Normal. Mediastinum/Aorta: Ectatic thoracic aorta. No osseous abnormality seen. XR/XR chest 1V portable [id number] IMPRESSION: Interval development of bibasilar opacifications, consistent with pneumonia, RI GHT greater than LEFT.
[2019-07-15] MEDS: nicotine 14 mg Patch 1 PATCH TRANSDERMA (08:24)
[2019-07-15] MEDS: ipratropium 0.5 mg/2.5 mL Neb INHALATION (09:20)
--- NOTE | 2019-07-15 09:32 | P.PN_ITS ---
Subjective Subjective: Interval history: No acute events overnight. Today morning on examination patient was on a Cardizem drip of 5 which started early in the morning as her heart rate has keep up to 120s. He continues to be noncompliant to nasal cannula and stated he cannot breathe through her nose chronically for a long time and likes to take his oxygen in his mouth. Explained to him in detail that it is important that even if he thinks he is not able to breathe through his nose he should keep the nasal cannula at nose as he had to the mouth will go to is gotten not to the lungs. States belly pain is a lot better but continues to hurt. Denies of having any nausea, vomiting, shortness of breath more than his baseline, headache, palpitations. Vitals/I&O/Wt Last Vital Signs Temp 97.9 F 07/14/19 20:00 Pulse 91 07/15/19 09:24 Resp 20 H 07/15/19 09:22 BP 142/111 07/15/19 04:00 Pulse Ox 93 07/15/19 09:22 07/14/19 07/15/19 07/15/19 22:59 06:59 14:59 Intake Total 240 / 838.5 Output Total 1875 / 3475 800 / 4275 Balance -1635 / -2636.5 -800 / -3436.5 Weight last 48 hrs Weight 86.183 kg Weight 86.183 kg Weight 86.183 kg Physical Exam Narrative: EXAM NARRATIVE: General: No acute distress, AO x3, mild distress because of pain in his belly, oxygen supplementation to nasal cannula. HEENT: PERRLA, pupils bilaterally equal and reactive Chest: Normal vesicular breath sounds bilaterally, bilateral fine crackles present in middle chest no rubs. CVS: S1-S2 irregular, irregularly irregular, pansystolic murmur at the apex, no gallop no murmur Abdomen: Soft, nontender, no organomegaly, bowel sounds present but sluggish, incisional hernia present in left periumbilical region, bowel sounds present in the incisional hernia, tenderness present in the incisional hernia. Neuro: No focal deficits, no facial deformity, AO x3, power 5/5 in all limbs. Extremities: Left leg more swollen than right Data : 07/15/19 04:05 07/15/19 04:05 A&P Assessment and plan (1) Atrial fibrillation with RVR: Status: Acute (2) Acute decompensated heart failure: Status: Acute (3) Heart failure with preserved ejection fraction, borderline, class III: Status: Acute (4) Acute exacerbation of chronic obstructive airways disease: Status: Acute (5) Incisional hernia: Status: Acute (6) Hepatitis: Status: Acute (7) Abnormal liver enzymes: Status: Acute Additional A&P Information A. fib with RVR: Cardizem drip stopped early in the morning. Continue with Cardizem 90 mg every 8 hourly. We will treat and the doses in such a way that he gets it every 8 hour. Given mild tachycardia will do digoxin to 50 mcg stat followed by 125 mcg in 6 hours. After which he can take digoxin 1.25 every other day. We will try to hold off on beta-radha given his severe COPD. Monitor blood measures. Continue with telemetry. Eliquis 5 mg twice daily. Shortness of breath: Most likely because of heart failure. Chances of pneumonia are less. Procalcitonin negative, CT chest negative for any acute infiltrate. Patient remains afebrile Acute decompensated diastolic heart failure: Most likely because of A. fib with RVR. IV Lasix 40 mg daily. Can change to oral dose from tomorrow onwards. Patient is net 4.5 L negative Daily weights. Strict input and output charting. Head and elevation. Transaminitis: Due to history of hepatitis C and congested hepatomegaly. Continues to resolve with diuresis. Check hepatitis C viral load. Continue to monitor CMP daily. Incarcerated hernia: Case discussed with Dr. Gomez. Given partial obstruction on the CT scan we will keep him n.p.o. If patient starts having nausea and vomiting will go for NG tube. Dr. Gomez consulted and will see patient today. Hypertension: We will hold off on the lisinopril for now and could want to increase the Cardizem dose as much as possible. COPD: History of bullous emphysema. Continue home dose of Advair. Will start on Spiriva as well. Oxygen supplementation keeping saturation over 90%. Lower limb swelling: Lower limb Dopplers to rule out DVT still awaited. No sign cellulitis at present. Full code. Becky will work for DVT prophylaxis N.p.o. except meds Fluid restriction up to 1500 cc/day. Attestations Medical Necessity Statement*: Fib with RVR, acute decompensated heart failure, incarcerated hernia Time Spent in Patient Care: Greater than 35 minutes Coding Level of Care Code Acute Social Work Coordinator for [facility] Fwd Diagnoses Atrial fibrillation with RVR I48.91 Acute decompensated heart failure I50.9 Heart failure with preserved ejection fraction, borderline, class III I50.30 Acute exacerbation of chronic obstructive airways disease J44.1 Incisional hernia K43.2 Hepatitis K75.9 Abnormal liver enzymes R74.8
[2019-07-15] MEDS: morphine 4 mg/mL SDV 1 mL 1 MG IVP ×3 (09:39→22:17)
--- NOTE | 2019-07-15 10:18 | PC.NURSE ---
staff continues to encourage pt to wear his oxygen and elevate his feet do to the swelling. continues to refuse
[2019-07-15] MEDS: famotidine 20 mg/2 mL INJ IVP ×2 (10:37→20:30)
[2019-07-15] MEDS: FUROsemide 10 mg/mL SDV 4mL 40 MG IVP (10:37)
[2019-07-15] MEDS: piperacillin-tazobactam 3.375 GM in sodium chloride 0.9% (plus) 50 ML IV ×2 (10:38→18:22)
[2019-07-15] MEDS: digoxin 250 mcg/ml INJ 2 mL IVP (10:38)
[2019-07-15 13:05] LABS: Add Urine Culture? No; Bacteria Urine TRACE; Bilirubin Urine Neg (NEGATIVE); Blood Urine Neg (Negative); Glucose Urine UA Norm (Normal); Ketones Urine Negative (Negative); Leukocyte Esterase Urine Negative (Negative); Nitrate Urine Negative (Negative); Protein Urine Neg (Negative); Squamous Epithelial Cell Urine 0-4 (0-5); Urine Appearance Clear (CLEAR); Urine Color Yellow (Yellow); Urobilinogen Urine Norm (Negative); WBC Urine 0-4 /hpf (0-5); pH Urine 6 (5-7)
[2019-07-15] MEDS: digoxin 250 mcg/ml INJ 2 mL 125 MCG IVP ×2 (14:54→20:30)
[2019-07-15] MEDS: trazodone 50 mg Tablet PO (20:30)
--- NOTE | 2019-07-15 20:57 | P.CONIM_ITS ---
Providers/Reason For Consult Consulting Physican/Specialty*: Dr. Bess Reason for Consult*: Incisional hernia Attending Physician: Geo Alcala MD History of Present Illness History of Present Illness Robert Torres is a 73 year old male with previously undergone a laparoscopic appendectomy followed by exploratory laparotomy due to enterotomy few years prior. I had seen him in my office few years ago with incisional hernia which at that point he did not want fixed. Over the last few years he is continued to smoke though he states that smoking is down to half a pack from 2 packs of cigarettes a day. He presented to the ER with shortness of breath and was diagnosed with COPD exacerbation. Patient denies any nausea vomiting constipation though he states that the hernia is getting more painful . CT abdomen pelvis showed a possible partial small bowel obstruction Meds/Allergies Home Medications and Allergies Home Medications Medication Instructions Recorded Confirmed Type albuterol sulfate [ProAir HFA] See Rx Instructions .ROUTE 06/07/19 07/13/19 Rx .COMPLEX #8.5 gm Eliquis 5 mg PO BID 30 Days #60 tab 06/19/19 07/13/19 Rx aspirin [Aspir-81] 81 mg PO DAILY 30 Days #30 tab 06/19/19 07/13/19 Rx diltiazem HCl 120 mg PO DAILY 30 Days #30 cap 06/19/19 07/13/19 Rx fluticasone propion-salmeterol 1 inh INHALATION DAILY 30 Days #60 06/19/19 07/13/19 Rx [Advair Diskus] each furosemide [Lasix] 40 mg PO DAILY 30 Days #30 tab 06/19/19 07/13/19 Rx lisinopril 20 mg PO DAILY 30 Days #30 tab 06/19/19 07/13/19 Rx metoprolol tartrate 50 mg PO BID 30 Days #60 tab 06/19/19 07/13/19 Rx nicotine 1 patch TRANSDERMAL DAILY 30 Days 06/19/19 07/13/19 Rx #30 ea nitroglycerin [Nitrostat] 0.4 mg SUBLINGUAL Q5M PRN 3 Days 06/19/19 07/13/19 Rx #3 tab potassium chloride 40 meq PO DAILY 30 Days #30 tab 06/19/19 07/13/19 Rx tiotropium bromide [Spiriva 2 inh INHALATION DAILY 30 Days #4 06/19/19 07/13/19 Rx Respimat] gm Allergies Allergy/AdvReac Type Severity Reaction Status Date / Time No Known Allergies Allergy Verified 06/05/19 20:03 Current Medications Current Medications Generic Name Dose Route Start Last Admin Trade Name Freq PRN Reason Stop Dose Admin Hydrocodone Bitart/Acetaminophen 1 tab 07/14/19 11:42 07/15/19 20:29 [place] 5-325 Mg PO 1 tab Q6H PRN Administration MODERATE TO SEVERE PAIN Apixaban 5 mg 07/13/19 18:00 07/15/19 18:23 Eliquis PO 5 mg BID DONN Administration Aspirin 81 mg 07/14/19 09:00 07/15/19 07:21 Aspirin Ec PO 81 mg DAILY DONN Administration Diltiazem HCl 90 mg 07/15/19 15:00 07/15/19 18:24 Cardizem PO 90 mg Q8H DONN Administration Famotidine 20 mg 07/15/19 09:45 07/15/19 20:30 Pepcid Inj IVP 20 mg Q12H DONN Administration Furosemide 40 mg 07/15/19 09:35 07/15/19 10:37 Lasix IVP 40 mg Q24H DONN Administration Piperacillin Sod/Tazobactam 50 mls @ 12.5 mls/hr 07/15/19 10:15 07/15/19 18:22 Sod 3.375 gm/ Sodium Chloride IV 12.5 mls/hr Q8H DONN Administration Protocol As Directed Ipratropium [place] 0.5 mg 07/14/19 11:38 07/15/19 09:20 Atrovent Neb INHALATION 0.5 mg Q4H.RESPIRATORY PRN Administration SHORTNESS OF BREATH Morphine Sulfate 1 mg 07/13/19 20:28 07/15/19 18:24 Morphine IVP 1 mg Q4H PRN Administration SEVERE PAIN Nicotine 1 patch 07/14/19 09:00 07/15/19 08:24 Nicoderm 14 Mg Patch TRANSDERMA 1 patch DAILY DONN Administration Fluticasone/Salmeterol 1 puff 07/14/19 09:00 07/15/19 09:14 Advair Diskus 100-50 INHALATION 1 puff DAILY DONN Administration Tiotropium [place] 18 mcg 07/14/19 08:00 07/15/19 09:13 Spiriva INHALATION 1 puff DAILY.RESPIRATORY DONN Administration Trazodone HCl 50 mg 07/14/19 22:53 07/15/19 20:30 Desyrel PO 50 mg BEDTIME PRN Administration SLEEP PFSH Acute PFSH: Medical History A-fib Back pain COPD (chronic obstructive pulmonary disease) Coronary artery disease GERD (gastroesophageal reflux disease) Hypertension Incisional hernia Insomnia Non-compliant behavior Surgical History H/O exploratory laparotomy H/O laminectomy History of carpal tunnel surgery History of cholecystectomy S/P laparoscopic appendectomy Family History Other Hypertension Social History Smoking and tobacco status: current some day smoker Alcohol intake: never Lives independently: Yes Housing: House Vitals/I&O/Wt Last Vital Signs Temp 98.8 F 07/15/19 17:30 Pulse 107 H 07/15/19 20:00 Resp 22 H 07/15/19 20:00 BP 141/77 07/15/19 20:00 Pulse Ox 97 07/15/19 16:30 07/15/19 07/15/19 07/15/19 06:59 14:59 22:59 Intake Total 490 / 850 360 / 850 Output Total 800 / 4275 1750 / 2250 500 / 2250 Balance -800 / -3436.5 -1260 / -1400 -140 / -1400 Weight last 48 hrs Weight 190 lb Weight 190 lb Physical Exam Narrative: EXAM NARRATIVE: HEENT: Normocephalic Eye: Sclera /conjunctiva normal Respiratory and chest: Bilateral clear breath sounds on auscultation Cardiovascular: Normal S1 and S2 heart sounds Abdomen: Soft to palpation, well-healed midline scar with a large incisional hernia which is reducible, nontender and a right inguinal hernia which is again reducible and nontender Neurological: Oriented to place person and time Skin: Intact, no lesions appreciated on gross exam Data Micro: Micro: Microbiology 07/15/19 11:29 Blood Culture - Pr eliminary Blood SPECIMEN [facility] 07/15/19 11:26 Blood Culture - Pr eliminary Blood SPECIMEN [facility] A&P Assessment and plan (1) Right inguinal hernia: Asymptomatic, continue observation Status: Acute (2) Incisional hernia: Chronic reducible incisional hernia, nontender today, patient states that he had a large bowel movement yesterday. We will therefore start him on a clear liquid diet and advance as tolerated. Discussed smoking cessation and treatment options with the patient. Status: Acute Coding Level of Care Code Acute Machine Repairer for josef Schwartz Diagnoses Right inguinal hernia K40.90 Incisional hernia K43.2
--- NOTE | 2019-07-15 20:57 | PM.PN ---
Vitals/I&O/Wt Last Vital Signs Temp 98.8 F 07/15/19 17:30 Pulse 107 H 07/15/19 20:00 Resp 22 H 07/15/19 20:00 BP 141/77 07/15/19 20:00 Pulse Ox 97 07/15/19 16:30 07/15/19 07/15/19 07/15/19 06:59 14:59 22:59 Intake Total 490 / 850 360 / 850 Output Total 800 / 4275 1750 / 2250 500 / 2250 Balance -800 / -3436.5 -1260 / -1400 -140 / -1400 Weight last 48 hrs Weight 190 lb Weight 190 lb Data : 07/15/19 04:05 07/15/19 04:05 Micro: Microbiology 07/15/19 11:29 Blood Culture - Preliminary Blood SPECIMEN COLLECTED 07/15/19 11:26 Blood Culture - Preliminary Blood SPECIMEN COLLECTED Coding Level of Care Code Acute Roll Forming Supervisor for Gretel Schwartz
[2019-07-16] VITALS (22 sets, daily range): BP systolic 130–179; BP diastolic 81–121; PULSE 70–138; RESP 13–25; TEMP 36.4–37; O2SAT 91–99; BMI 28.8
[2019-07-16] MEDS: piperacillin-tazobactam 3.375 GM in sodium chloride 0.9% (plus) 50 ML IV ×3 (03:09→17:36)
[2019-07-16] MEDS: HYDROcodone-acetaminophen 5-325 mg Tablet 1 TAB PO ×4 (03:15→21:53)
[2019-07-16 04:39] LABS: Basophils % 0.3 %; Eosinophils # 0.1 10^3/uL (0.0-0.8); Eosinophils % 1.1 %; Hematocrit 40.4 % (42.0-52.0); Hemoglobin 13.5 g/dL (11.7-16.6); Lymphocytes # 2.5 10^3/uL (0.8-4.8); Mean Corpuscular HGB Conc 33.4 g/dL (30.0-36.0); Mean Corpuscular Hemoglobin 35.8 pg (28.0-34.0); Mean Corpuscular Volume 107.2 fL (80-94); Mean Platelet Volume 11.3 fL (7.4-10.4); Monocytes # 1.6 10^3/uL (0.2-0.9); Monocytes % 14.5 %; Neutrophils # 6.5 10^3/uL (1.8-7.7); Neutrophils % 60.2 %; Nucleated Red Blood Cells % 0 %; Platelet Count 182 10^3/cmm (130-400); Red Blood Count 3.77 10^6/uL (4.1-5.3); Red Cell Distribution Width 13.8 % (12.1-15.1); White Blood Count 10.8 10^3/uL (4.0-10.0)
[2019-07-16 04:51] LABS: Alanine Aminotransferase 76 U/L (0-41); Albumin Level 3.3 g/dL (3.5-5.2); Alkaline Phosphatase 132 IU/L (40-130); Anion Gap 14.8 (5-19); Aspartate Amino Transferase 76 U/L (0-40); Blood Urea Nitrogen 21 mg/dL (8-23); Calcium 9.2 mg/dL (8.5-10.5); Carbon Dioxide 33 mmol/L (22-29); Chloride 93 mmol/L (98-107); Creatinine Clr Calc Pharmacy 89.1475; Globulin 4.1 g/dL (1.3-4.6); Glucose 98 mg/dL (65-115); Osmolality Calculated 279 mOsm/kg (285-295); Potassium 4.8 mmol/L (3.5-5.1); Sodium 136 mmol/L (136-145); Total Bilirubin 0.7 mg/dL (0.15-1.2); Total Protein 7.4 g/dL (6.6-8.7)
[2019-07-16 05:09] LABS: Digoxin 0.9 ng/mL (0.6-1.2)
--- NOTE | 2019-07-16 07:11 | P.PN_ITS ---
Subjective Subjective: Interval history: Patient has been doing well had a large bowel movement yesterday, no nausea or vomiting. Denies any significant abdominal pain Vitals/I&O/Wt Last Vital Signs Temp 98.8 F 07/15/19 17:30 Pulse 78 07/16/19 04:00 Resp 17 07/16/19 04:00 BP 161/101 07/16/19 04:00 Pulse Ox 99 07/16/19 04:00 07/15/19 07/16/19 07/16/19 22:59 06:59 14:59 Intake Total 410 / 900 Output Total 900 / 3250 600 / 3250 Balance -490 / -2350 -600 / -2350 Weight last 48 hrs Weight 190 lb Weight 190 lb Physical Exam Narrative: EXAM NARRATIVE: Abdomen: Soft, large incisional hernia which is reducible Data : 07/16/19 04:05 07/16/19 04:05 Micro: Microbiology 07/15/19 11:29 Blood Culture - Preliminary Blood SPECIMEN COLLECTED 07/15/19 11:26 Blood Culture - Preliminary Blood SPECIMEN COLLECTED A&P Assessment and plan (1) Incisional hernia: Reducible, no evidence of bowel obstruction clinically Advance to regular diet today, was tolerating clear liquid diet last night Patient is at high risk of surgical complications due to his comorbidities and the fact that he continues to be a smoker Status: Acute (2) Right inguinal hernia: Stable, asymptomatic Status: Acute Attestations Medical Necessity Statement*: Partial suspected small bowel obstruction and an incisional hernia, COPD Coding Level of Care Code Acute Edger Machine Setter for [employer] Efren Diagnoses Incisional hernia K43.2 Right inguinal hernia K40.90
[2019-07-16] MEDS: dilTIAZem 60 mg Tablet 90 MG PO ×3 (07:29→20:08)
--- NOTE | 2019-07-16 07:50 | PM.PN ---
Subjective Subjective: Interval history: Brian reports he is less short of breath than he was on admission. He is a little less swollen, but not back to his baseline. No chest pain. States that his beta-radha was stopped about a month or 2 ago as pharmacy did not have any more refills. Medications: Reviewed: Yes Vitals/I&O/Wt Last Vital Signs Temp 98.8 F 07/15/19 17:30 Pulse 78 07/16/19 04:00 Resp 17 07/16/19 04:00 BP 161/101 07/16/19 04:00 Pulse Ox 99 07/16/19 04:00 07/15/19 07/16/19 07/16/19 22:59 06:59 14:59 Intake Total 410 / 900 Output Total 900 / 2650 600 / 3250 Balance -490 / -1750 -600 / -2350 Weight last 48 hrs Weight 86.183 kg Weight 86.183 kg Physical Exam Narrative: EXAM NARRATIVE: General exam is no apparent distress. Telemetry demonstrates A. fib with RVR. No pauses Cardiovascular tachycardic, irregular, 2/6 systolic murmur Lungs diminished breath sounds bilaterally but no wheezing Abdomen is soft with positive bowel sounds Extremities 1+ edema bilaterally Data : 07/16/19 04:05 07/16/19 04:05 Micro: Microbiology 07/15/19 11:29 Blood Culture - Preliminary Blood SPECIMEN COLLECTED 07/15/19 11:26 Blood Culture - Preliminary Blood SPECIMEN COLLECTED A&P Assessment and plan (1) Atrial fibrillation with RVR: Still not well controlled on Cardizem, every other day digoxin. Blood pressure is also high. Considering he is tolerated beta-radha in the past without any worsening of his breathing will restart this at 25 mg twice daily and monitor heart rate closely. Continue digoxin for now every other day as well as Cardizem Continue Eliquis for anticoagulation Status: Acute (2) Acute decompensated heart failure: Improving with diuresis. He diuresed over 2 L yesterday. This is consistent with acute diastolic heart failure. Continue IV Lasix 40 mg every 24 hours Status: Acute (3) Heart failure with preserved ejection fraction, borderline, class III: See above Status: Acute (4) Acute exacerbation of chronic obstructive airways disease: Status: Acute (5) Incisional hernia: Status: Acute (6) Hepatitis: Status: Acute (7) Abnormal liver enzymes: Status: Acute Additional A&P Information Possible pneumonia. Continue Zosyn. Transaminitis. Secondary to hepatitis C, CHF. Viral load ordered. Incarcerated hernia. No evidence of obstruction. Surgery following Hypertension, still elevated. Add metoprolol. COPD, currently without exacerbation. Continue Advair Eliquis for DVT prophylaxis Full code Attestations Medical Necessity Statement*: Needs continued hospitalization for adjustment of medications for atrial fibrillation with rapid ventricular rate. Coding Level of Care Code Acute Certified Paralegal for Chg Fwd Diagnoses Atrial fibrillation with RVR I48.91 Acute decompensated heart failure I50.9 Heart failure with preserved ejection fraction, borderline, class III I50.30 Acute exacerbation of chronic obstructive airways disease J44.1 Incisional hernia K43.2 Hepatitis K75.9 Abnormal liver enzymes R74.8
[2019-07-16] MEDS: digoxin 125 mcg Tablet PO (08:42)
[2019-07-16] MEDS: apixaban 5 mg Tablet PO ×2 (08:43→17:35)
[2019-07-16] MEDS: nicotine 14 mg Patch 1 PATCH TRANSDERMA (08:43)
[2019-07-16] MEDS: FUROsemide 10 mg/mL SDV 4mL 40 MG IVP (08:43)
[2019-07-16] MEDS: aspirin 81 mg EC Tablet PO (08:43)
[2019-07-16] MEDS: famotidine 20 mg/2 mL INJ IVP ×2 (08:43→20:09)
[2019-07-16] MEDS: metoprolol tartrate 25 mg Tablet PO ×2 (09:12→17:35)
[2019-07-16] MEDS: ipratropium 0.5 mg/2.5 mL Neb INHALATION ×3 (09:37→23:29)
--- NOTE | 2019-07-16 10:00 | PC.SOCIAL ---
IMM Page 2 of IMM explained to patient. Initialed, dated, and timed and placed in chart. Copy provided to patient.
--- NOTE | 2019-07-16 11:56 | PC.RESP ---
Patient given information on Pulmonary Rehab and information for Smoking Cessation including a schedule of upcoming classes.
--- NOTE | 2019-07-16 12:12 | PC.NURSE ---
TRANSFER TO FLOOR Patient transferred via wheelchair to [facility]. Patient oriented to room and call light within reach. All belongings sent with patient. Vape placed in pyxis by 2nd floor nurse.
[2019-07-16] MEDS: morphine 4 mg/mL SDV 1 mL 1 MG IVP ×2 (13:53→20:09)
[2019-07-16 15:35] LABS: HEP C RNA Viral Load Quant 6.88 Log IU/mL (NOT DETECTED)
[2019-07-16] MEDS: trazodone 50 mg Tablet 100 MG PO (21:53)
[2019-07-17] VITALS (12 sets, daily range): BP systolic 146–171; BP diastolic 70–99; PULSE 64–80; RESP 16–22; TEMP 36.4–36.7; O2SAT 93–99
[2019-07-17] MEDS: piperacillin-tazobactam 3.375 GM in sodium chloride 0.9% (plus) 50 ML IV ×3 (02:34→17:24)
[2019-07-17] MEDS: HYDROcodone-acetaminophen 5-325 mg Tablet 1 TAB PO ×2 (04:48→11:45)
[2019-07-17 05:26] LABS: Basophils % 0.4 %; Eosinophils # 0.2 10^3/uL (0.0-0.8); Hematocrit 38.5 % (42.0-52.0); Hemoglobin 12.9 g/dL (11.7-16.6); Lymphocytes # 2.8 10^3/uL (0.8-4.8); Lymphocytes % 29.3 %; Mean Corpuscular HGB Conc 33.5 g/dL (30.0-36.0); Mean Corpuscular Volume 107.5 fL (80-94); Mean Platelet Volume 11.4 fL (7.4-10.4); Monocytes # 1.5 10^3/uL (0.2-0.9); Monocytes % 15.1 %; Neutrophils % 52.3 %; Nucleated Red Blood Cells % 0 %; Platelet Count 175 10^3/cmm (130-400); Red Blood Count 3.58 10^6/uL (4.1-5.3); Red Cell Distribution Width 13.6 % (12.1-15.1); White Blood Count 9.6 10^3/uL (4.0-10.0)
[2019-07-17 05:45] LABS: Alanine Aminotransferase 67 U/L (0-41); Albumin Level 2.9 g/dL (3.5-5.2); Alkaline Phosphatase 141 IU/L (40-130); Anion Gap 14.2 (5-19); Aspartate Amino Transferase 70 U/L (0-40); Blood Urea Nitrogen 18 mg/dL (8-23); Calcium 8.9 mg/dL (8.5-10.5); Carbon Dioxide 30 mmol/L (22-29); Chloride 93 mmol/L (98-107); Globulin 4.5 g/dL (1.3-4.6); Glucose 107 mg/dL (65-115); Osmolality Calculated 273 mOsm/kg (285-295); Potassium 4.2 mmol/L (3.5-5.1); Sodium 133 mmol/L (136-145); Total Bilirubin 0.6 mg/dL (0.15-1.2); Total Protein 7.4 g/dL (6.6-8.7)
[2019-07-17] MEDS: dilTIAZem 60 mg Tablet 90 MG PO (06:14)
[2019-07-17] MEDS: morphine 4 mg/mL SDV 1 mL 1 MG IVP (06:24)
--- NOTE | 2019-07-17 08:25 | P.PN_ITS ---
Subjective Subjective: Interval history: Edward reports he is doing better. He reports his ankles are still swollen. Shortness of breath is less. No chest discomfort. Medications: Reviewed: Yes Vitals/I&O/Wt Last Vital Signs Temp 97.9 F 07/17/19 07:50 Pulse 72 07/17/19 07:50 Resp 18 07/17/19 07:50 BP 165/70 07/17/19 07:50 Pulse Ox 95 07/17/19 07:50 07/16/19 07/17/19 07/17/19 22:59 06:59 14:59 Intake Total 680 / 1210 550 / 1760 Output Total 850 / 2700 775 / 3475 Balance -170 / -1490 -225 / -1715 Weight last 48 hrs Weight 86.273 kg Weight 86.183 kg Physical Exam Narrative: EXAM NARRATIVE: General exam is no apparent distress. Telemetry demonstrates A. fib. Some bradycardia around 50, asymptomatic, when sleeping Cardiovascular irregular, irregular, 2/6 systolic murmur Lungs diminished breath sounds bilaterally but no wheezing Abdomen is soft with positive bowel sounds Extremities 1+ edema bilaterally Data : 07/17/19 04:44 07/17/19 04:44 Micro: Microbiology 07/15/19 11:29 Blood Culture - Preliminary Blood NEGATIVE TO DATE 07/15/19 11:26 Blood Culture - Preliminary Blood NEGATIVE TO DATE A&P Assessment and plan (1) Atrial fibrillation with RVR: Control improved on Cardizem, every other day digoxin, metoprolol. Change Cardizem to long-acting Continue Eliquis for anticoagulation Status: Acute (2) Acute decompensated heart failure: Continues to diurese. Improving. This is consistent with acute diastolic heart failure. Continue IV Lasix 40 mg every 24 hours. He appears to need 1 more day of IV diuresis prior to discharge with home health Status: Acute (3) Heart failure with preserved ejection fraction, borderline, class III: Improving compensation Status: Acute (4) Acute exacerbation of chronic obstructive airways disease: Improved Status: Acute (5) Incisional hernia: Surgery following. No evidence of obstruction Status: Acute (6) Hepatitis: Status: Acute (7) Abnormal liver enzymes: Liver function tests unchanged Status: Acute Additional A&P Information Possible pneumonia. Continue Zosyn. Transaminitis. Secondary to hepatitis C, CHF. Viral load ordered. Incarcerated hernia. No evidence of obstruction. Surgery following Hypertension, improved COPD, currently without exacerbation. Continue Advair Macrocytosis, decreased folic acid level. Add folic acid, check TSH. Eliquis for DVT prophylaxis Full code Attestations Medical Necessity Statement*: Needs continued hospital stay for further diuresis secondary to acute diastolic heart failure. Coding Level of Care Code Acute Weigher Operator for Chg Fwd Diagnoses Atrial fibrillation with RVR I48.91 Acute decompensated heart failure I50.9 Heart failure with preserved ejection fraction, borderline, class III I50.30 Acute exacerbation of chronic obstructive airways disease J44.1 Incisional hernia K43.2 Hepatitis K75.9 Abnormal liver enzymes R74.8
[2019-07-17] MEDS: apixaban 5 mg Tablet PO ×2 (09:05→17:24)
[2019-07-17] MEDS: aspirin 81 mg EC Tablet PO (09:05)
[2019-07-17] MEDS: nicotine 14 mg Patch 1 PATCH TRANSDERMA (09:05)
[2019-07-17] MEDS: folic acid 1 mg Tablet PO (09:05)
[2019-07-17] MEDS: pantoprazole DR 40 mg Tablet PO (09:05)
[2019-07-17] MEDS: metoprolol tartrate 25 mg Tablet PO ×2 (09:05→17:24)
[2019-07-17] MEDS: FUROsemide 10 mg/mL SDV 4mL 40 MG IVP (09:06)
[2019-07-17 09:26] LABS: Thyroid Stimulating Hormone 2.62 uIU/mL (0.27-4.20)
--- NOTE | 2019-07-17 09:45 | PC.CHAP ---
Pastoral Care Encounter/Spiritual Assessment Type of Contact [] Declined senior peoplesoft developer visit [] Patient/Family/Request visit [] Outpatient visit [] Follow-up visit [] Physician referral [] Code/Alert [x] Routine visit [] Staff referral [] Actively dying [] Patient sleeping [] Family support [] [] Out of room [] Palliative care [] [] Receiving care in room [] Pre-surgical visit [] Trauma [] Long length of stay [] ICU visit [] Other: Relational/Emotional Strength [x] Patient feels connected with others/family/visitors/staff [] Distress [] Loneliness/isolation [] Abandonment Spirituality of Patient [x] Person of Karen [] Attends Confucianism of their Karen [x] Believes in Prayer [x] Reads Bible or Hindu materials [] There are Spiritual issues to be addressed Journeyman Glazier Interventions [x] Prayer [x] Active listening [x] Non-anxious presence [x] Spiritual/emotional support [] Crisis/trauma care [x] Spiritual counseling [] Bereavement support [] Provided bereavement packet [] Provided Bible/devotional materials [] Provided toy/stuffed animal, coloring book to patient or family member [] Provided Communion [] Anointing/Boaz [] Salvation [] Completed spiritual assessment [] Other: Impact on Illness or Injury [] Angry [] Fearful [] Anxious [] Often cries [] Exhaustion [] Unable to work [] Unable to attend rastafarian [] Unable to walk/stand [] Unable to read [] Unable to drive [] Unable to eat/drink [] Unable to sleep [] Unable to be with family [] Patient intubated [x] Other: Summary Patient is a believer in the [employer] [place] but does not attend mormon. Time spent with patient 10 minutes
[2019-07-17] MEDS: ipratropium 0.5 mg/2.5 mL Neb INHALATION ×2 (13:32→20:20)
[2019-07-17] MEDS: dilTIAZem ER (24HR) 240 mg Capsule PO (14:48)
--- NOTE | 2019-07-17 22:30 | PC.NURSE ---
PT ASKED RT FOR THE NURSE TO GIVE THEM SOMETHING FOR PAIN. THIS NURSE WENT TO PT ROOM TO GIVE PAIN MEDICATION AND THE PT WAS SLEEPING. PAIN MEDICATION WAS NOT ADMINISTERED. WILL CONTINUE TO MONITOR.
[2019-07-18] VITALS (8 sets, daily range): BP systolic 131–143; BP diastolic 74–82; PULSE 58–88; RESP 16–18; TEMP 36.4–36.7; O2SAT 93–99
[2019-07-18] MEDS: piperacillin-tazobactam 3.375 GM in sodium chloride 0.9% (plus) 50 ML IV ×2 (01:56→11:03)
--- NOTE | 2019-07-18 02:48 | PC.NURSE ---
PT PULLED APART PRIMARY TUBING. PT STATES THAT THEY MUST HAVE DONE IT IN THEIR SLEEP. WILL CONTINUE TO MONITOR.
[2019-07-18 06:08] LABS: Alanine Aminotransferase 72 U/L (0-41); Alkaline Phosphatase 137 IU/L (40-130); Anion Gap 14.8 (5-19); Blood Urea Nitrogen 23 mg/dL (8-23); Calcium 8.7 mg/dL (8.5-10.5); Carbon Dioxide 27 mmol/L (22-29); Chloride 97 mmol/L (98-107); Globulin 3.7 g/dL (1.3-4.6); Glucose 107 mg/dL (65-115); Osmolality Calculated 275 mOsm/kg (285-295); Potassium 4.8 mmol/L (3.5-5.1); Sodium 134 mmol/L (136-145); Total Bilirubin 0.6 mg/dL (0.15-1.2); Total Protein 6.7 g/dL (6.6-8.7)
[2019-07-18 06:15] LABS: Aspartate Amino Transferase 84 U/L (0-40)
[2019-07-18] MEDS: aspirin 81 mg EC Tablet PO (09:00)
[2019-07-18] MEDS: folic acid 1 mg Tablet PO (09:00)
[2019-07-18] MEDS: nicotine 14 mg Patch 1 PATCH TRANSDERMA (09:01)
[2019-07-18] MEDS: digoxin 125 mcg Tablet PO (09:02)
[2019-07-18] MEDS: pantoprazole DR 40 mg Tablet PO (09:03)
[2019-07-18] MEDS: metoprolol tartrate 25 mg Tablet PO ×2 (09:03→16:46)
[2019-07-18] MEDS: dilTIAZem ER (24HR) 240 mg Capsule PO (09:03)
[2019-07-18] MEDS: apixaban 5 mg Tablet PO ×2 (09:03→16:47)
--- NOTE | 2019-07-18 09:27 | PC.SOCIAL ---
IMM Update Pg 2 of IMM given and explained to patient who verbalized understanding. Copy provided.
[2019-07-18] MEDS: ipratropium 0.5 mg/2.5 mL Neb INHALATION (10:15)
[2019-07-18] MEDS: HYDROcodone-acetaminophen 5-325 mg Tablet 1 TAB PO (10:26)
[2019-07-18] MEDS: FUROsemide 10 mg/mL SDV 4mL 40 MG IVP (10:27)
--- NOTE | 2019-07-18 13:08 | P.DS_ITS ---
Discharge Providers Date of Admission: 07/13/19 17:23 Date of Discharge: July 18, 2019 Attending Provider at Admission: Geo Alcala MD Attending Provider at Discharge: Afshin Akers MD Diagnoses at Discharge Discharge Diagnosis (1) Atrial fibrillation with RVR: Status: Acute Problem details: Resolved. Ultimately will discharge back on Cardizem and metoprolol on slightly different doses. Digoxin was added, but heart rate drifted down to 40 while sleeping so discontinued. (2) Acute decompensated heart failure: Status: Acute Problem details: Improved with IV diuresis (3) Heart failure with preserved ejection fraction, borderline, class III: Status: Acute (4) Acute exacerbation of chronic obstructive airways disease: Status: Acute (5) Incisional hernia: Status: Acute (6) Hepatitis: Status: Acute (7) Abnormal liver enzymes: Status: Acute Reason for Visit Reason for Visit: Reason For Visit: A-FIB Hospital Course Hospital Course: Robert is a 73-year-old white male who presented to the hospital with shortness of breath. He was found to be in acute diastolic heart failure, atrial fibrillation with rapid ventricular rate. He was initially placed on a Cardizem drip and eventually diuresed. During his hospital stay he gradually improved. Digoxin was ultimately added to his regimen but he continued to have significant atrial fibrillation. Metoprolol was added and heart rate came under control. Ultimately digoxin was discontinued late in his hospital stay his heart rate would drift down to low 40s when he was still. By the time of discharge she was feeling much better. Extremities were less swollen. Baseline heart rate while awake was 75. He reported his shortness of breath was about at baseline, on 2 L of oxygen. Overall he had lost approximately 10 L.(Previous recent echo demonstrated preserved EF, 3/4 diastolic dysfunction). Transaminitis was also noted and he will need follow-up of her hepatitis C as an outpatient. Positive viral load was noted. Physical Exam Narrative: EXAM NARRATIVE: General exam is no apparent distress Cardiovascular irregular, irregular with 2/6 systolic murmur Lungs diminished breath sounds but clear Abdomen is soft positive bowel sounds Extremities trace edema Discharge Data Data Completed and Pending: Completed Studies During Hospitalization Category Date Time Status CT chest abd pel wo con Urgent Cat Scan 07/13/19 17:36 Completed XR abdomen min 2V [id number] Routine Exams 07/14/19 18:17 Completed XR chest 1V negrito ble [id number] Routine Exams 07/15/19 08:16 Completed XR chest 1V negrito ble [id number] Stat Exams 07/13/19 16:12 [place] liver [id number] Ro utine Ultrasound 07/14/19 19:13 Completed Pending at discharge Category Date Time Status Blood Culture Sta t Lab 07/15/19 11:29 Results Sputum Culture an d Gram Stain Routi ne Lab 07/14/19 11:41 Uncollected Labs from last 24 hours 07/18/19 04:50 Sodium 134 L Potassium 4.8 Chloride 97 L Carbon Dioxide 27 Anion Gap 14.8 BUN 23 Creatinine 1.1 Glucose 107 Calculated Osmolal ity 275 L Calcium 8.7 Total Bilirubin 0.6 AST 84 H ALT 72 H Alkaline Phosphata se 137 H Total Protein 6.7 Albumin 3.0 L Globulin 3.7 Vitals: Last Vital Signs Temp 98.0 F 07/18/19 11:33 Pulse 71 07/18/19 11:33 Resp 18 07/18/19 11:33 BP 131/82 07/18/19 11:33 Pulse Ox 99 07/18/19 11:33 Discharge Plan Discharge Patient Disposition: Home Health Service Condition: Stable Prescriptions: New metoprolol tartrate 25 mg Tablet 25 mg PO BID Qty: 60 RF: 0 amoxicillin-pot clavulanate [Augmentin] 875-125 mg tablet 1 tab PO BID Qty: 10 RF: 0 albuterol sulfate 0.63 mg/3 mL solution for nebulization 0.63 mg INHALATION Q4H PRN (Reason: shortness of breath or wheezing) Qty: 180 RF: 0 diltiazem HCl 240 mg Capsule,Extended Release 24hr 240 mg PO DAILY Qty: 30 RF: 0 furosemide [Lasix] 40 mg tablet 60 mg PO QAM Qty: 45 RF: 0 Continued albuterol sulfate [ProAir HFA] 90 mcg/actuation Hfa Aerosol Inhaler See Rx Instructions .ROUTE .COMPLEX Qty: 8.5 RF: 0 potassium chloride 10 mEq Tablet Extended Release 40 meq PO DAILY 30 Days Qty: 30 RF: 0 fluticasone propion-salmeterol [Advair Diskus] 100-50 mcg/dose blister with device 1 inh INHALATION DAILY 30 Days Qty: 60 RF: 0 Spiriva Respimat 1.25 mcg/actuation mist 2 inh INHALATION DAILY 30 Days Qty: 4 RF: 0 nicotine 14 mg/24 hr Patch 24 Hour 1 patch transdermal DAILY 30 Days Qty: 30 RF: 0 aspirin [Aspir-81] 81 mg Tablet,Delayed Release (Dr/Ec) 81 mg PO DAILY 30 Days Qty: 30 RF: 0 nitroglycerin [Nitrostat] 0.4 mg Tablet, Sublingual 0.4 mg SUBLINGUAL Q5M PRN (Reason: Chest Pain) 3 Days Qty: 3 RF: 0 Eliquis 5 mg Tablet 5 mg PO BID 30 Days Qty: 60 RF: 0 Discontinued lisinopril 20 mg Tablet 20 mg PO DAILY 30 Days Qty: 30 RF: 0 metoprolol tartrate 50 mg Tablet 50 mg PO BID 30 Days Qty: 60 RF: 0 furosemide [Lasix] 40 mg tablet 40 mg PO DAILY 30 Days Qty: 30 RF: 0 diltiazem HCl 120 mg Capsule,Extended Release 24hr 120 mg PO DAILY 30 Days Qty: 30 RF: 0 Discharge Orders: Discharge Order (Routine); Ordered 07/18/19 Ordered By: Afshin Akers Other Ambulatory Orders: DME: Nebulizer with Neb Kit (Order) Location: None Selected Ordered By: Afshin Akers Referrals: Kayleigh Delgado [Staff Physician] - 4-7 days (Will need BMP on follow-up. Consideration of referral, for hepatitis C on follow-up.) Discharge Diet: Cardiac Discharge Activity: Increase activity as tolerated Activity Restrictions/Additional Instructions: Resume your oxygen at home 2 L per nasal cannula No smoking Take all medicine as prescribed Discharge Attestations Time Spent in Discharge Care*: greater than 30 min Quality Metrics Clinical Quality Measures During this hospital stay, did patient experience: None Coding Level of Care Code Acute Dye Reel Operator Helper for Chg Fwd Diagnoses Atrial fibrillation with RVR I48.91 Acute decompensated heart failure I50.9 Heart failure with preserved ejection fraction, borderline, class III I50.30 Acute exacerbation of chronic obstructive airways disease J44.1 Incisional hernia K43.2 Hepatitis K75.9 Abnormal liver enzymes R74.8
== END 2019-07-18 20:00 | disposition home health service (06) | DRG 308 ==
LOC: ER 17:40 → MEDSURG 17:41 → ICU 18:38 → MEDSURG 07-16 12:09
PROVIDERS: Admitting Provider Student in an Organized Health Care Education/Training Program; Emergency Provider Family Medicine; Family Provider Family Medicine; Visit Provider Internal Medicine
DX: I48.91 Unspecified atrial fibrillation (principal); I50.33 Acute on chronic diastolic (congestive) heart failure; J18.9 Pneumonia, unspecified organism; I11.0 Hypertensive heart disease with heart failure; Z79.01 Long term (current) use of anticoagulants; J43.9 Emphysema, unspecified; Z99.81 Dependence on supplemental oxygen; K43.2 Incisional hernia without obstruction or gangrene; B19.20 Unspecified viral hepatitis C without hepatic coma; F17.210 Nicotine dependence, cigarettes, uncomplicated; Z91.19 Patient's noncompliance with other medical treatment and regimen; M79.89 Other specified soft tissue disorders; M54.9 Dorsalgia, unspecified; K21.9 Gastro-esophageal reflux disease without esophagitis; I25.10 Atherosclerotic heart disease of native coronary artery without angina pectoris; G47.33 Obstructive sleep apnea (adult) (pediatric); Z98.890 Other specified postprocedural states; Z79.82 Long term (current) use of aspirin; Z79.51 Long term (current) use of inhaled steroids
CPT/HCPCS: 12345; 36415; 36600; 71045; 71250; 74019; 74176; 76705; 80051; 80053; 80162; 81001; 82810; 83880; 83986; 84145; 84443; 84484; 85025; 85610; 87040; 87522; 87804; 93005; 94640; 96374; 96375; 97161; 97530; 99284; J1160; J1940; J2270; J2543; J3490; J7611; J7644

== ENCOUNTER 2019-07-31 16:05 | Inpatient (IN) | payer MEDICARE, MEDICAID, SELFPAY ==
[2019-07-31] VITALS (66 sets, daily range): BP systolic 130–185; BP diastolic 69–141; PULSE 58–163; RESP 12–42; O2SAT 80–100; BMI 26.6
--- NOTE | 2019-07-31 16:15 | XR_ITS ---
WS: [id number] PORTABLE CHEST HISTORY: cp COMPARISON: 07/15/2019 Hyperinflated lungs. Changes of emphysema. More focal interstitial thickening at the RIGHT lung base similar to prior studies. No pneumonia. No pleural effusion or pneumothorax. Cardiac size: Mildly enlarged cardiac silhouette. Mediastinum/Aorta: Mildly ectatic aorta. No osseous abnormality seen. XR/XR chest 1V portable [id number] IMPRESSION: Chronic emphysema and mild cardiomegaly. No interval change.
--- NOTE | 2019-07-31 16:15 | ECG_ITS ---
Measurements Intervals [place] Rate: 66 P: [place]: 0 QRS: 46 QRSD: 87 T: 59 QT: 413 QTc: 435 SINUS RHYTHM WITH FREQUENT PAC'S Compared to ECG 07/13/2019 23:36:55 Myocardial infarct finding no longer present T-wave abnormality no longer present Possible ischemia no longer present Electronically Signed On 08-01-2019 15:31:41 CDT by Maggie Squires M.D. [email or web address]
--- NOTE | 2019-07-31 16:22 | ED_ITS ---
HPI - SOB/Dyspnea General: Chief Complaint: Shortness of Breath/Dyspnea Stated Complaint: RESP DISTRESS Time Seen by Provider: 07/31/19 16:11 Source: patient and EMS Mode of arrival: EMS Limitations: no limitations History of Present Illness: HPI Narrative: 74-year-old male who has a long history of emphysema and COPD. Patient states he has had increasing shortness of breath the last 3 days with severe dyspnea today. Patient is able to speak in 3-5 word sentences due to his dyspnea. Patient is also in A. fib with RVR with heart rate of 180. Patient is on oxygen at home and states he has had to turn it up. He denies any cough or fever. Denies any worsening or improving factors at this time. MD elicited complaint: shortness of breath Pertinent past history: COPD Onset (ago): day(s) Severity: severe Exacerbating factors: nothing Relieving factors: nothing Known history of: COPD Associated symptoms: Reports palpitations; Deny abdominal pain, fever(s), nausea or vomiting Review of Systems Const: Denies: fever, chills, body aches or change in appetite Eyes: Denies: blurry vision or eye discomfort ENMT: Denies: throat pain or dental pain Card: Reports: palpitations and irregular heart rhythm Resp: Reports: shortness of breath and wheezing GI: Denies: abdominal pain, nausea, vomiting or diarrhea : Denies: painful urination Musc: Denies: neck pain or back pain Skin/Breast: Denies: rash Neuro: Denies: headache Psych: Denies: depression Juan C/Lymph: Denies: easy bruising All/Imm: Denies: hives PFSH ED PFSH: Medical History A-fib Back pain COPD (chronic obstructive pulmonary disease) Coronary artery disease GERD (gastroesophageal reflux disease) Hypertension Incisional hernia Insomnia Non-compliant behavior Surgical History H/O exploratory laparotomy H/O laminectomy History of carpal tunnel surgery History of cholecystectomy S/P laparoscopic appendectomy Family History Father Cancer Other Hypertension Social History Smoking and tobacco status: current every day smoker cigarettes Packs smoked per day: 0.5 Alcohol intake: never Substance/Drug Use: current Other substance/drug use details: rosario KENT Lives independently: Yes Household members: family and children Housing: House Physical Exam Const: COMMON NORMALS: oriented x3 GENERAL APPEARANCE: in distress and disheveled HENMT: COMMON NORMALS: normocephalic and head/scalp atraumatic HEAD & SCALP: normocephalic and atraumatic Eye: COMMON NORMALS: PERRL and EOMs intact bilaterally PUPIL: Yes PERRL Neck/C-Spine: COMMON NORMALS: full ROM and supple Chest: COMMONS NORMALS: inspection of chest normal and palpation of chest normal Resp: EFFORT & INSPECTION: Yes respiratory distress AUSCULTATION: wheezes and diminished lung sounds Cardio: COMMON NORMALS: no murmurs RATE: tachycardic RHYTHM: abnormal rh ythm irregularly irregular GI: COMMON NORMALS: normal to inspection, nondistended, normoactive bowel sounds, soft to palpation, non-tender and no masses PALPATION: Yes soft Extremity: COMMON NORMALS: normal to inspection and full ROM Neuro: COMMON NORMALS: oriented x3, moves all extremities and no focal motor deficits Psych: COMMON NORMALS: mental status grossly normal, thought process normal and cooperative THOUGHT PROCESS: normal thought process Skin: COMMON NORMALS: no rashes or lesions noted and no wounds GENERAL SKIN EXAM: no rashes or lesions noted Course Vital Signs: Vital signs: Vital Signs Pulse Rate 77 08/01/19 04:00 Respiratory Rate 27 H 08/01/19 04:00 Blood Pressure 148/104 08/01/19 04:00 Pulse Oximetry 96 08/01/19 04:00 MDM - SOB/Dyspnea MDM Narrative: Medical decision making narrative: Patient presents here with COPD exacerbation is improving after breathing treatments and steroids. Patient also in A. fib with RVR and has a long history of A. fib. Patient's heart rate now is 87 on Cardizem. Patient has no signs of pneumonia on x-ray. I spoke to hospitalist Dr. Valerio and will admit to the stepdown unit. Lab Data: Labs: Lab Results 07/31/19 07/31/19 07/31/19 Range/Units 16:26 16:30 16:30 WBC 6.8 (4.0-10.0) 10^3/ uL RBC 3.09 L (4.1-5.3) 10^6/u L Hgb 11.0 L (11.7-16.6) g/dL Hct 33.7 L (42.0-52.0) % MCV 109.1 H (80-94) fL MCH 35.6 H (28.0-34.0) pg MCHC 32.6 (30.0-36.0) g/dL RDW 13.0 (12.1-15.1) % Plt Count 160 (130-400) 10^3/c mm MPV 11.0 H (7.4-10.4) fL Neut % (Auto) 52.6 % Lymph % (Auto) 31.3 % [place] % (Auto) 14.7 % Eos % (Auto) 0.9 % Baso % (Auto) 0.4 % Neut # (Auto) 3.6 (1.8-7.7) 10^3/u L Lymph # (Auto) 2.1 (0.8-4.8) 10^3/u L [place] # (Auto) 1.0 H (0.2-0.9) 10^3/u L Eos # (Auto) 0.1 (0.0-0.8) 10^3/u L Baso # (Auto) 0.0 (0.0-0.1) 10^3/u L Nucleated RBC % (a uto) 0 % Nucleated RBCs # 0.0 /100WBC PT (10.5-13.3) SECO NDS INR (0.8-1.2) Specimen Type Arterial Sample Site Brachial, left ABG pH 7.38 (7.35-7.45) ABG pCO2 43.9 (35-45) mmHg ABG pO2 147.0 H (80.0-100.0) mmH g ABG HCO3 26.0 (22-26) mmol/L ABG Base Excess 0.6 (-2.0-2.0) mmol/ L Yannick Test Pos Hematocrit 41.4 L (42-52) % Hgb O2 Saturation 98.0 (95-100) % Carboxyhemoglobin 0.8 (0.4-20.1) %THgb Methemoglobin 0.8 (0.4-1.5) % Total Hemoglobin 13.5 L (14-18) g/dL O2 Delivery Device Nc O2 Liters/Min 6.0 % Tree Care Foreman ID cak Sodium 138 (136-145) mmol/L Potassium 3.5 (3.5-5.1) mmol/L Chloride 107 (98-107) mmol/L Carbon Dioxide 22 (22-29) mmol/L Anion Gap 12.5 (5-19) BUN 16 (8-23) mg/dL Creatinine 0.6 L (0.7-1.2) mg/dL Glucose 94 (65-115) mg/dL Calculated Osmolal ity 282 L (285-295) mOsm/k g Calcium 7.1 L (8.5-10.5) mg/dL Total Bilirubin 0.5 (0.15-1.2) mg/dL AST 114 H (0-40) U/L ALT 79 H (0-41) U/L Alkaline Phosphata se 133 H (40-130) IU/L Troponin T Baselin e (0-15) ng/mL Total Protein 6.5 L (6.6-8.7) g/dL Albumin 2.4 L (3.5-5.2) g/dL Globulin 4.1 (1.3-4.6) g/dL 07/31/19 07/31/19 Range/Units 16:30 16:30 WBC (4.0-10.0) 10^3/ uL RBC (4.1-5.3) 10^6/u L Hgb (11.7-16.6) g/dL Hct (42.0-52.0) % MCV (80-94) fL MCH (28.0-34.0) pg MCHC (30.0-36.0) g/dL RDW (12.1-15.1) % Plt Count (130-400) 10^3/c mm MPV (7.4-10.4) fL Neut % (Auto) % Lymph % (Auto) % [place] % (Auto) % Eos % (Auto) % Baso % (Auto) % Neut # (Auto) (1.8-7.7) 10^3/u L Lymph # (Auto) (0.8-4.8) 10^3/u L [place] # (Auto) (0.2-0.9) 10^3/u L Eos # (Auto) (0.0-0.8) 10^3/u L Baso # (Auto) (0.0-0.1) 10^3/u L Nucleated RBC % (a uto) % Nucleated RBCs # /100WBC PT 14.40 H (10.5-13.3) SECO NDS INR 1.09 (0.8-1.2) Specimen Type Sample Site ABG pH (7.35-7.45) ABG pCO2 (35-45) mmHg ABG pO2 (80.0-100.0) mmH g ABG HCO3 (22-26) mmol/L ABG Base Excess (-2.0-2.0) mmol/ L Yannick Test Hematocrit (42-52) % Hgb O2 Saturation (95-100) % Carboxyhemoglobin (0.4-20.1) %THgb Methemoglobin (0.4-1.5) % Total Hemoglobin (14-18) g/dL O2 Delivery Device O2 Liters/Min % Tree [employer] Foreman ID Sodium (136-145) mmol/L Potassium (3.5-5.1) mmol/L Chloride (98-107) mmol/L Carbon Dioxide (22-29) mmol/L Anion Gap (5-19) BUN (8-23) mg/dL Creatinine (0.7-1.2) mg/dL Glucose (65-115) mg/dL Calculated Osmolal ity (285-295) mOsm/k g Calcium (8.5-10.5) mg/dL Total Bilirubin (0.15-1.2) mg/dL AST (0-40) U/L ALT (0-41) U/L Alkaline Phosphata se (40-130) IU/L Troponin T Baselin e 24 H (0-15) ng/mL Total Protein (6.6-8.7) g/dL Albumin (3.5-5.2) g/dL Globulin (1.3-4.6) g/dL Imaging Data^: CXR: My impression: resolved pneumonia EKG Data^: EKG 1: Attestation: I personally reviewed and interpreted this EKG as follows: EKG Interpretation Date: 07/31/19 EKG interpretation time: 16:29 Interpretation: afib rvr hr [address] or t wave abnormalities qrs 84 qtc 339 Critical Care Time Critical Care Time: Critical Care Time: Yes Total Critical Care Time: 35 Attestation: This case had a high probability of a clinically significant, sudden, or life threatening deterioration of this patient's condition which required my full and direct attention, intervention and personal management. Discharge Plan Discharge Patient Disposition: Admitted As Inpatient Admit Provider: Pola Valerio Clinical Impression: Acute exacerbation of chronic obstructive airways disease A-fib Qualifiers: Atrial fibrillation type: unspecified Qualified Code(s): I48.91 - Unspecified atrial fibrillation Condition: Stable Referrals: Jon Lange MD [Family Provider] - Discharge Date/Time: 07/31/19 19:24 Coding Level of Care Code ED Emergency Planning And Response Manager for Chg Fwd Exam Comprehensive
[2019-07-31 16:37] LABS: ABG PCO2 43.9 mmHg (35-45); ABG PH Result 7.38 (7.35-7.45); Arterial Blood Gas Hematocrit 41.4 % (42-52); Base Excess ABG 0.6 mmol/L (-2.0-2.0); Blood Gas Allen Test Pos; Blood Gas Sample Site Brachial, left; Blood Gas Sample Type Arterial; Carboxyhemoglobin 0.8 %THgb (0.4-20.1); Methemoglobin 0.8 % (0.4-1.5); Oxygen Device NC; Total Hemoglobin 13.5 g/dL (14-18)
[2019-07-31 16:44] LABS: Basophils % 0.4 %; Eosinophils # 0.1 10^3/uL (0.0-0.8); Eosinophils % 0.9 %; Hematocrit 33.7 % (42.0-52.0); Lymphocytes # 2.1 10^3/uL (0.8-4.8); Lymphocytes % 31.3 %; Mean Corpuscular HGB Conc 32.6 g/dL (30.0-36.0); Mean Corpuscular Hemoglobin 35.6 pg (28.0-34.0); Mean Corpuscular Volume 109.1 fL (80-94); Monocytes % 14.7 %; Neutrophils # 3.6 10^3/uL (1.8-7.7); Neutrophils % 52.6 %; Nucleated Red Blood Cells % 0 %; Platelet Count 160 10^3/cmm (130-400); Red Blood Count 3.09 10^6/uL (4.1-5.3); White Blood Count 6.8 10^3/uL (4.0-10.0)
[2019-07-31 17:00] LABS: Alanine Aminotransferase 79 U/L (0-41); Albumin Level 2.4 g/dL (3.5-5.2); Alkaline Phosphatase 133 IU/L (40-130); Anion Gap 12.5 (5-19); Aspartate Amino Transferase 114 U/L (0-40); Blood Urea Nitrogen 16 mg/dL (8-23); Calcium 7.1 mg/dL (8.5-10.5); Carbon Dioxide 22 mmol/L (22-29); Chloride 107 mmol/L (98-107); Globulin 4.1 g/dL (1.3-4.6); Glucose 94 mg/dL (65-115); Osmolality Calculated 282 mOsm/kg (285-295); Potassium 3.5 mmol/L (3.5-5.1); Sodium 138 mmol/L (136-145); Total Bilirubin 0.5 mg/dL (0.15-1.2); Total Protein 6.5 g/dL (6.6-8.7)
[2019-07-31 17:04] LABS: Troponin(5th) Baseline 24 ng/mL (0-15)
[2019-07-31] MEDS: morphine 4 mg/mL SDV 1 mL IVP (17:45)
--- NOTE | 2019-07-31 18:15 | ECG_ITS ---
Measurements Intervals [place] Rate: 100 P: [place]: 0 QRS: 48 QRSD: 85 T: 78 QT: 341 QTc: 441 ATRIAL FIBRILLATION WITH RAPID VENTRICULAR RESPONSE ABNORMAL RHYTHM ECG Compared to ECG 07/13/2019 23:36:55 Myocardial infarct finding no longer present T-wave abnormality no longer present Possible ischemia no longer present Electronically Signed On 08-01-2019 15:58:30 CDT by Maggie Squires M.D. [id number]
--- NOTE | 2019-07-31 18:17 | P.HP_ITS ---
Providers/Chief Complaint Admitting Physician: Pola Valerio Chief Complaint: A-FIB WITH RVR, COPD EXACERBATION History of Present Illness Robert Torres is a 74 year old gentleman returns to the hospital due to progressively worsening shortness of breath, at home he says he is turning up his oxygen to 5 L either 5 L or maximum that is allowed, although he does not exactly remember the amount, complains of difficulty catching his breath, also having pain at the site of his hernia. He reports that he has taken some of the medications prescribed to him on discharge, although has not completed them. He denies chest pain. Denies orthopnea. In ER noted to be in atrial fibrillation with RVR, initially heart rates in the 160s. Was started on Cardizem drip with improvement in heart rate down to 85-90. He lives at home with his son and grandchildren. Denies anyone else being ill in the family. Denies any fever. Denies any travel or contact with any person suspected of COVID-19. Review of Systems Const: Denies: fever, chills, body aches or malaise Eyes: Denies: change in vision or eye redness ENMT: Denies: throat pain, oral sores/lesions or ear pain Card: Denies: chest pain, edema, pre-syncope or shortness of breath on exertion Resp: Reports: shortness of breath and productive cough; Denies: change in phlegm color or coughing up blood GI: Reports: other (Left lower quadrant abdominal hernia which he says is been bothering him with more pain); Denies: abdominal pain, nausea, vomiting, diarrhea, constipation, blood in stool or black tarry stool : Denies: flank pain, difficulty urinating, urinary frequency or blood in urine Musc: Denies: back pain, joint swelling or redness Skin/Breast: Denies: rash, sores or new lesion Neuro: Denies: headache, numbness in extremities, weakness in extremities, dizziness, confusion or seizure-like activity Endo: Denies: excessive urination or excessive thirst Juan C/Lymph: Denies: easy bleeding or purpura All/Imm: Denies: hives, throat swelling or tongue swelling Medications/Allergies Home Medications Medication Instructions Recorded Confirmed Last Taken Type albuterol sulfate [ProAir HFA] See Rx Instructions .ROUTE 06/07/19 07/31/19 06/15/19 09:00 Rx .COMPLEX #8.5 gm Eliquis 5 mg PO BID 30 Days #60 tab 06/19/19 07/31/19 07/30/19 Rx aspirin [Aspir-81] 81 mg PO DAILY 30 Days #30 tab 06/19/19 07/31/19 Unknown Rx nitroglycerin [Nitrostat] 0.4 mg SUBLINGUAL Q5M PRN 3 Days 06/19/19 07/31/19 Unknown Rx #3 tab albuterol sulfate 0.63 mg INHALATION Q4H PRN #180 ml 07/18/19 07/31/19 Unknown Rx diltiazem HCl 240 mg PO DAILY #30 cap 07/18/19 07/31/19 07/30/19 Rx furosemide [Lasix] 60 mg PO QAM #45 tab 07/18/19 07/31/19 07/30/19 Rx metoprolol tartrate 25 mg PO BID #60 tab 07/18/19 07/31/19 07/30/19 Rx lisinopril 20 mg PO BID 07/31/19 07/31/19 07/30/19 History potassium chloride 20 meq PO BID 07/31/19 07/31/19 07/30/19 History tiotropium bromide [Spiriva See Rx Instructions .ROUTE .COMPLEX 07/31/19 07/31/19 Unknown History Respimat] Allergies Allergy/AdvReac Type Severity Reaction Status Date / Time No Known Allergies Allergy Verified 06/05/19 20:03 PFSH Acute 2 PFSH: Medical History A-fib Back pain COPD (chronic obstructive pulmonary disease) Coronary artery disease GERD (gastroesophageal reflux disease) Hypertension Incisional hernia Insomnia Non-compliant behavior Surgical History H/O exploratory laparotomy H/O laminectomy History of carpal tunnel surgery History of cholecystectomy S/P laparoscopic appendectomy Family History (Updated 07/31/19 @ 18:36 by Pola Valerio MD) Father Cancer Other Hypertension Social History Smoking and tobacco status: current every day smoker cigarettes Packs smoked per day: 0.5 Alcohol intake: never Substance/Drug Use: current Other substance/drug use details: rosario KENT Lives independently: Yes Household members: family and children Housing: House Vitals/I&O/Wt Last Vital Signs Pulse 159 H 07/31/19 18:04 Resp 18 07/31/19 18:04 Pulse Ox 100 07/31/19 18:04 Weight last 48 hrs Weight 81.647 kg Physical Exam Const: COMMON NORMALS: no apparent distress and oriented x3 GENERAL APPEARANCE: anxious OTHER: Sitting up in bed. Leaning forward. HENMT: COMMON NORMALS: oropharynx normal Neck/C-Spine: COMMON NORMALS: no JVD Resp: COMMON NORMALS: normal respiratory effort AUSCULTATION: wheezes and diminished lung sounds Cardio: COMMON NORMALS: no JVD, S1 normal heart sound, S2 normal heart sound and no murmurs; negative for regular rhythm RHYTHM: abnormal rhythm irregularly irregular HEART SOUNDS: S1 normal and S2 normal GI: COMMON NORMALS: normal to inspection, nondistended, normoactive bowel sounds, soft to palpation and non-tender PALPATION: Yes soft and Yes other (Reducible hernia left lower quadrant abdomen, distended, 10 x 10 cm, but reducible in supine positioning) Extremity: COMMON NORMALS: no joint enlargement and no pedal edema Neuro: COMMON NORMALS: oriented x3 and moves all extremities Skin: COMMON NORMALS: no rashes or lesions noted GENERAL SKIN EXAM: no rashes or lesions noted Data : 07/31/19 16:30 07/31/19 16:30 A&P Assessment and plan (1) Atrial fibrillation with RVR: Heart rate in 160s. Started on Cardizem drip in ER. With improvement of heart rates to 80s-90. During last hospitalization heart rate ended up controlled with Cardizem and metoprolol. Became bradycardic during the night with digoxin. Attempt to wean off drip. Continue his Cardizem, metoprolol. Treat COPD exacerbation, hypoxia. Continue Eliquis. Replace potassium, check magnesium. Status: Acute (2) Acute and chronic respiratory failure: Complains of significant dyspnea, difficulty catching his breath. Intermittent cough productive of grayish-brownish sputum. Denies orthopnea. Does not appear to be very significantly fluid overloaded. At home says had to increase his oxygen to maximum. In ER on 8 L nasal cannula with lip tab. Received Solu-Medrol 125 mg. We will continue 60 mg every 6 hours. Change antibiotic to Levaquin. Breathing treatments. For now due to worsening hypoxia, significant subjective dyspnea, will be placed in ICU. Status: Acute (3) COPD exacerbation: As above. Check rapid flu, sputum culture. Status: Acute (4) Incisional hernia: Appears to be similar in size to prior, although perhaps may be slightly more distended. He is complaining of some pain, which is also making it difficult for him to catch her breath. Hernia appears to be reducible in prone positioning, although she has dyspnea, easily returns. He denies any alteration in bowel habits. No nausea or vomiting. At this time does not appear to be incarcerated. Continue follow-up with Dr. Gomez in office. Status: Acute (5) Hepatitis C: Pending outpatient follow-up. Status: Acute Attestations Medical Necessity Statement*: Admission of over 2 midnights is going to be needed for assessment and management of A. fib with RVR, COPD exacerbation, with acute respiratory failure with hypoxia. Coding Level of Care Code Acute Archery Equipment Hay Sorter for josef Fwd Diagnoses Atrial fibrillation with RVR I48.91 Acute and chronic respiratory failure J96.20 COPD exacerbation J44.1 Incisional hernia K43.2 Hepatitis C B19.20
--- NOTE | 2019-07-31 19:00 | PC.NURSE ---
rcvd pt from ed , pt placed on cm at this time hr 160 a fib, cardizem @ 10 mg/ hr resumed. at this time. pt requesting food . refusing to wear 02 properly . refuses to sit in bed and insists on sitting up on side of bed. replaced cm multiple times. food given. 2010 pt converted to sr at this time. vss per cm. sr 60-80 bpm . pt continues to sit on side of bed and eat. pt co severe pain. hyrdocodone given per may. discussed pt c dr. malik. will give one times dose of metoprolol and eliquis per home med list. 2099 pt refuses to lay in bed at this time. sitting up on side of bed eating. 0 pt continues to co pain in left lower abd at hernia area. 2230 pt hr noted to be 40-50 assisted pt to lying in bed position. cardizem placed on hold at this time. 2245 pt sitting up on side of bed refuses to lay in bed [address] malik . order for 1-2 mg dilaudid given ivp. 1 mg given waited 10 min pt still had min relief second mg given pt reports some relief. 2335 rt at bedside for ekg. pt reports he takes advair discussed c ok to order. lia
[2019-07-31] MEDS: levofloxacin-dextrose 5 % 750 MG/150 ML PREMIX 100 MG IV (19:28)
[2019-07-31] MEDS: FUROsemide 10 mg/mL SDV 4mL 40 MG IVP (19:28)
[2019-07-31] MEDS: apixaban 5 mg Tablet PO (20:23)
[2019-07-31] MEDS: HYDROcodone-acetaminophen 5-325 mg Tablet 1 TAB PO (20:23)
[2019-07-31] MEDS: metoprolol tartrate 25 mg Tablet PO (20:23)
[2019-07-31 20:35] LABS: Troponin 5 2HR 25.62 ng/mL (0-15); Troponin 5 2HR Delta 1.62 ABS# (0-10)
--- NOTE | 2019-07-31 22:15 | ECG_ITS ---
Measurements Intervals [place] Rate: 181 P: [place]: 0 QRS: 49 QRSD: 84 T: 29 QT: 244 QTc: 424 SU[address] MODERATE ST DEPRESSION [0.05+ mV ST DEPRESSION] CRITICAL TEST RESULT Compared to ECG 07/13/2019 23:36:55 ST (T wave) deviation now present Atrial fibrillation no longer present Myocardial infarct finding no longer present T-wave abnormality no longer present Possible ischemia no longer present Electronically Signed On 08-01-2019 16:01:41 CDT by Maggie Squires M.D. [id number]
[2019-07-31 22:54] LABS: INR 1.09 (0.8-1.2)
[2019-07-31 22:55] LABS: Troponin 5 6HR 20.46 ng/mL (0-15)
[2019-07-31 22:59] LABS: Troponin 5 6HR Delta -3.54 ng/L (0-12)
[2019-07-31] MEDS: HYDROmorphone 1 mg/mL INJ 1 mL IVP (23:12)
[2019-07-31] MEDS: ipratropium-albuterol 3 mL Neb INHALATION (23:36)
[2019-08-01] VITALS (44 sets, daily range): BP systolic 114–188; BP diastolic 60–117; PULSE 59–122; RESP 13–34; TEMP 36.6; O2SAT 72–99; BMI 26.6
[2019-08-01 00:14] LABS: Influenza A by IFA Negative (Negative); Influenza B by IFA Negative (Negative)
[2019-08-01] MEDS: ipratropium-albuterol 3 mL Neb INHALATION ×5 (02:05→20:25)
[2019-08-01] MEDS: HYDROmorphone 1 mg/mL INJ 1 mL IVP ×2 (03:24→20:43)
[2019-08-01 05:02] LABS: Basophils % 0.3 %; Hematocrit 36.5 % (42.0-52.0); Lymphocytes % 32.1 %; Mean Corpuscular HGB Conc 32.9 g/dL (30.0-36.0); Mean Corpuscular Hemoglobin 36.5 pg (28.0-34.0); Mean Corpuscular Volume 110.9 fL (80-94); Mean Platelet Volume 10.7 fL (7.4-10.4); Monocytes # 0.1 10^3/uL (0.2-0.9); Neutrophils # 1.9 10^3/uL (1.8-7.7); Neutrophils % 64.3 %; Nucleated Red Blood Cells % 0 %; Platelet Count 218 10^3/cmm (130-400); Red Blood Count 3.29 10^6/uL (4.1-5.3); Red Cell Distribution Width 12.9 % (12.1-15.1)
[2019-08-01 05:19] LABS: Alanine Aminotransferase 90 U/L (0-41); Albumin Level 3.3 g/dL (3.5-5.2); Alkaline Phosphatase 154 IU/L (40-130); Anion Gap 17.5 (5-19); Aspartate Amino Transferase 107 U/L (0-40); Blood Urea Nitrogen 23 mg/dL (8-23); Calcium 8.8 mg/dL (8.5-10.5); Carbon Dioxide 25 mmol/L (22-29); Chloride 95 mmol/L (98-107); Globulin 5.3 g/dL (1.3-4.6); Glucose 153 mg/dL (65-115); Osmolality Calculated 276 mOsm/kg (285-295); Potassium 4.5 mmol/L (3.5-5.1); Sodium 133 mmol/L (136-145); Total Bilirubin 0.5 mg/dL (0.15-1.2); Total Protein 8.6 g/dL (6.6-8.7)
--- NOTE | 2019-08-01 07:55 | PC.NURSE ---
frequently removing monitor leads and o2 at this time restless talking off scds.
[2019-08-01] MEDS: dilTIAZem ER (24HR) 240 mg Capsule PO (08:37)
[2019-08-01] MEDS: metoprolol tartrate 25 mg Tablet PO ×2 (08:37→17:36)
[2019-08-01] MEDS: aspirin 81 mg EC Tablet PO (08:37)
[2019-08-01] MEDS: FUROsemide 40 mg Tablet 60 MG PO (08:38)
[2019-08-01] MEDS: apixaban 5 mg Tablet PO ×2 (08:38→17:36)
--- NOTE | 2019-08-01 09:02 | PC.NURSE ---
pt refused pnumonia shot related he had that in last sevaral years but not sure when.... also heart rate good and cardizem off at this time
--- NOTE | 2019-08-01 09:34 | PM.PN ---
Subjective Subjective: Interval history: Feels breathing has improved may be a little, but not a whole lot better. He denies any chest pain. Hernia feels about the same, not better and not worse. Vitals/I&O/Wt Last Vital Signs Pulse 77 08/01/19 08:55 Resp 22 H 08/01/19 08:55 BP 152/109 08/01/19 08:00 Pulse Ox 92 08/01/19 08:55 07/31/19 08/01/19 08/01/19 22:59 06:59 14:59 Intake Total 600 / 600 600 / 1200 320 / 320 Output Total 400 / 400 Balance 600 / 600 200 / 800 320 / 320 Weight last 48 hrs Weight 81.647 kg Physical Exam Const: COMMON NORMALS: no apparent distress and oriented x3 GENERAL APPEARANCE: anxious OTHER: Sitting up at the side of the bed, trying to have breakfast. Fidgeting with telemonitoring cables. Nasal cannula is on forehead. HENMT: COMMON NORMALS: oropharynx normal Neck/C-Spine: COMMON NORMALS: no JVD Resp: COMMON NORMALS: normal respiratory effort AUSCULTATION: wheezes (Less wheezing today) and diminished lung sounds Cardio: COMMON NORMALS: no JVD, S1 normal heart sound, S2 normal heart sound and no murmurs RHYTHM: abnormal rhythm irregularly irregular HEART SOUNDS: S1 normal and S2 normal GI: COMMON NORMALS: normal to inspection, nondistended, normoactive bowel sounds, soft to palpation and non-tender PALPATION: Yes soft and Yes other (Reducible hernia left lower quadrant abdomen, distended, 10 x 10 cm, but reducible in supine positioning) Extremity: COMMON NORMALS: no joint enlargement GENERAL: Yes edema (trace) Neuro: COMMON NORMALS: oriented x3 and moves all extremities Skin: COMMON NORMALS: no rashes or lesions noted GENERAL SKIN EXAM: no rashes or lesions noted Data : 08/01/19 04:49 08/01/19 04:49 A&P Assessment and plan (1) Atrial fibrillation with RVR: HR down into 60s. Cardizem drip turned off. Resumed on home dose Cardizem, metoprolol. Can likely transfer upstairs if remains stable this morning. During last hospitalization heart rate ended up controlled with Cardizem and metoprolol. Became bradycardic during the night with digoxin. Attempt to wean off drip. Continue his Cardizem, metoprolol. Treat COPD exacerbation, hypoxia. Continue Eliquis. Status: Acute (2) Acute and chronic respiratory failure: Says his breathing is about the same. On 6 L oxygen by nasal cannula at the same time did pull it up to his forehead to have breakfast. At this time wheezing appears to have improved slightly more it on exam. Continue for now I steroids unchanged. Antibiotic, breathing meds, oxygen support. Rapid influenza is negative. At home says had to increase his oxygen to maximum. In ER on 8 L nasal cannula with lip tab. Status: Acute (3) COPD exacerbation: As above. Sputum culture. Status: Acute (4) Incisional hernia: Appears to be similar in size to prior, although perhaps may be slightly more distended. He is complaining of some pain, which is also making it difficult for him to catch her breath. Hernia appears to be reducible in prone positioning, although she has dyspnea, easily returns. He denies any alteration in bowel habits. No nausea or vomiting. At this time does not appear to be incarcerated. Continue follow-up with Dr. Gomez in office. Status: Acute (5) Hepatitis C: Pending outpatient follow-up. Status: Acute Attestations Medical Necessity Statement*: Continue admission versus management of acute on chronic respiratory failure with hypoxia, COPD exacerbation, A. fib with RVR. Coding Level of Care Code Acute Senior Vice President for Chg Fwd Diagnoses Atrial fibrillation with RVR I48.91 Acute and chronic respiratory failure J96.20 COPD exacerbation J44.1 Incisional hernia K43.2 Hepatitis C B19.20
--- NOTE | 2019-08-01 14:02 | PC.NURSE ---
continues restless and confused plulling off o2 and lead wires and blood pressure cuff ..
[2019-08-01] MEDS: HYDROcodone-acetaminophen 5-325 mg Tablet 1 TAB PO ×3 (14:40→23:22)
[2019-08-01] MEDS: nicotine 14 mg Patch 1 PATCH TRANSDERMA (19:39)
[2019-08-01] MEDS: levofloxacin-dextrose 5 % 750 MG/150 ML PREMIX 100 MG IV (20:26)
[2019-08-01] MEDS: trazodone 50 mg Tablet 25 MG PO (23:22)
[2019-08-02] VITALS (15 sets, daily range): BP systolic 130–154; BP diastolic 65–87; PULSE 62–122; RESP 18–22; TEMP 36.4–37; O2SAT 91–100
[2019-08-02] MEDS: ipratropium-albuterol 3 mL Neb INHALATION ×7 (01:50→23:09)
[2019-08-02] MEDS: HYDROcodone-acetaminophen 5-325 mg Tablet 1 TAB PO ×6 (03:21→23:05)
--- NOTE | 2019-08-02 03:30 | PC.NURSE ---
Patient requesting pain medication about every hour. Have been administering as scheduled. Instructed patient on dosing and he verbalized understanding however did say i am forgetful sometimes. . Patient also asking for more sleep medicine at this time. Instructed patient that sleep medication was already given and I could not give anything at this time.
[2019-08-02 05:59] LABS: Basophils % 0.1 %; Hematocrit 34.9 % (42.0-52.0); Hemoglobin 11.6 g/dL (11.7-16.6); Lymphocytes % 9.8 %; Mean Corpuscular HGB Conc 33.2 g/dL (30.0-36.0); Mean Corpuscular Hemoglobin 36.6 pg (28.0-34.0); Mean Corpuscular Volume 110.1 fL (80-94); Mean Platelet Volume 10.8 fL (7.4-10.4); Monocytes # 0.5 10^3/uL (0.2-0.9); Monocytes % 5.1 %; Neutrophils # 8.3 10^3/uL (1.8-7.7); Neutrophils % 84.5 %; Nucleated Red Blood Cells % 0 %; Platelet Count 230 10^3/cmm (130-400); Red Blood Count 3.17 10^6/uL (4.1-5.3); Red Cell Distribution Width 12.8 % (12.1-15.1); White Blood Count 9.9 10^3/uL (4.0-10.0)
[2019-08-02 06:19] LABS: Alanine Aminotransferase 72 U/L (0-41); Albumin Level 3.2 g/dL (3.5-5.2); Alkaline Phosphatase 134 IU/L (40-130); Anion Gap 16.3 (5-19); Aspartate Amino Transferase 64 U/L (0-40); Blood Urea Nitrogen 33 mg/dL (8-23); Calcium 9.4 mg/dL (8.5-10.5); Carbon Dioxide 25 mmol/L (22-29); Chloride 96 mmol/L (98-107); Globulin 5.3 g/dL (1.3-4.6); Glucose 184 mg/dL (65-115); Osmolality Calculated 276 mOsm/kg (285-295); Potassium 5.3 mmol/L (3.5-5.1); Sodium 132 mmol/L (136-145); Total Bilirubin 0.4 mg/dL (0.15-1.2); Total Protein 8.5 g/dL (6.6-8.7)
[2019-08-02] MEDS: nicotine 14 mg Patch 1 PATCH TRANSDERMA (07:58)
[2019-08-02] MEDS: apixaban 5 mg Tablet PO ×2 (07:58→17:46)
[2019-08-02] MEDS: metoprolol tartrate 25 mg Tablet PO ×2 (07:59→10:12)
[2019-08-02] MEDS: FUROsemide 40 mg Tablet 60 MG PO (07:59)
[2019-08-02] MEDS: aspirin 81 mg EC Tablet PO (07:59)
[2019-08-02] MEDS: dilTIAZem ER (24HR) 240 mg Capsule PO (07:59)
[2019-08-02] MEDS: predniSONE 20 mg Tablet 40 MG PO (15:10)
[2019-08-02] MEDS: metoprolol tartrate 50 mg Tablet PO (17:46)
--- NOTE | 2019-08-02 18:03 | P.PN_ITS ---
Subjective Subjective: Interval history: He reports he is feeling about the same. Vitals/I&O/Wt Last Vital Signs Temp 98.4 F 08/02/19 15:16 Pulse 98 08/02/19 15:17 Resp 20 H 08/02/19 15:17 BP 130/72 08/02/19 15:16 Pulse Ox 95 08/02/19 15:17 08/02/19 08/02/19 08/02/19 06:59 14:59 22:59 Intake Total 720 / 720 360 / 1080 Output Total 100 / 100 1150 / 1150 400 / 1550 Balance -100 / 905 -430 / -430 -40 / -470 Weight last 48 hrs Weight 81.329 kg Weight 81.647 kg Physical Exam Const: COMMON NORMALS: no apparent distress and oriented x3 GENERAL APPEARANCE: anxious OTHER: Reclined in bed. Appears comfortable. Nasal cannula is in his mouth. HENMT: COMMON NORMALS: oropharynx normal Neck/C-Spine: COMMON NORMALS: no JVD Resp: COMMON NORMALS: normal respiratory effort AUSCULTATION: wheezes (Improving) and diminished lung sounds Cardio: COMMON NORMALS: no JVD, S1 normal heart sound, S2 normal heart sound and no murmurs RHYTHM: abnormal rhythm irregularly irregular HEART SOUNDS: S1 normal and S2 normal GI: COMMON NORMALS: normal to inspection, nondistended, normoactive bowel sounds, soft to palpation and non-tender PALPATION: Yes soft and Yes other (Reducible hernia left lower quadrant abdomen, distended, 10 x 10 cm, but reducible in supine positioning) Extremity: COMMON NORMALS: no joint enlargement GENERAL: Yes edema (trace) Neuro: COMMON NORMALS: oriented x3 and moves all extremities Skin: COMMON NORMALS: no rashes or lesions noted GENERAL SKIN EXAM: no rashes or lesions noted Data : 08/02/19 04:42 08/02/19 04:42 A&P Assessment and plan (1) Atrial fibrillation with RVR: Variable heart rates this morning again up to 120s. His Cardizem and metoprolol doses were added to earlier the morning, still subsequently heart rates around 118. Metoprolol 25 mg extra was given, and scheduled dose increased to 50 mg twice daily. Heart rates with some gradual improvement. We will continue to monitor overnight and if doing well, potentially may be moved to return home tomorrow. During last hospitalization heart rate ended up controlled with Cardizem and metoprolol. Became bradycardic during the night with digoxin. Treat COPD exacerbation, hypoxia. Continue Eliquis. Status: Acute (2) Acute and chronic respiratory failure: This appears to be gradually improving. Down to 5 L nasal cannula oxygen. This appears to be close to his recent oxygen requirements at home. Wheezing significantly improved on exam. Transition him to oral exam today. Rapid influenza is negative. Status: Acute (3) COPD exacerbation: As above. Sputum culture uncollected. Status: Acute (4) Incisional hernia: Appears to be similar in size to prior, although perhaps may be slightly more distended. He is complaining of some pain, which is also making it difficult for him to catch her breath. Hernia appears to be reducible in prone positioning, although she has dyspnea, easily returns. He denies any alteration in bowel habits. No nausea or vomiting. At this time does not appear to be incarcerated. Continue follow-up with Dr. Gomez in office. Status: Acute (5) Hepatitis C: Pending outpatient follow-up. Status: Acute Attestations Medical Necessity Statement*: Continued admission for optimization of medical management of A. fib with RVR, COPD exacerbation, respiratory failure with hypoxia. Coding Level of Care Code Acute [employer] for Gretel Schwartz Diagnoses Atrial fibrillation with RVR I48.91 Acute and chronic respiratory failure J96.20 COPD exacerbation J44.1 Incisional hernia K43.2 Hepatitis C B19.20
[2019-08-02] MEDS: levofloxacin-dextrose 5 % 750 MG/150 ML PREMIX 100 MG IV (19:16)
[2019-08-02] MEDS: trazodone 50 mg Tablet 25 MG PO (21:17)
[2019-08-03] VITALS (8 sets, daily range): BP systolic 144–155; BP diastolic 82–90; PULSE 79–122; RESP 18–22; TEMP 36.4–36.6; O2SAT 86–100
[2019-08-03] MEDS: ipratropium-albuterol 3 mL Neb INHALATION ×3 (03:12→12:39)
[2019-08-03] MEDS: HYDROcodone-acetaminophen 5-325 mg Tablet 1 TAB PO ×3 (03:23→13:55)
[2019-08-03 05:06] LABS: Basophils % 0.1 %; Hematocrit 32.5 % (42.0-52.0); Hemoglobin 11.1 g/dL (11.7-16.6); Mean Corpuscular HGB Conc 34.2 g/dL (30.0-36.0); Mean Corpuscular Hemoglobin 37.6 pg (28.0-34.0); Mean Corpuscular Volume 110.2 fL (80-94); Mean Platelet Volume 11.3 fL (7.4-10.4); Monocytes % 7.9 %; Neutrophils # 10.9 10^3/uL (1.8-7.7); Neutrophils % 83.3 %; Nucleated Red Blood Cells % 0 %; Platelet Count 200 10^3/cmm (130-400); Red Blood Count 2.95 10^6/uL (4.1-5.3); White Blood Count 13.1 10^3/uL (4.0-10.0)
[2019-08-03 05:23] LABS: Alanine Aminotransferase 67 U/L (0-41); Albumin Level 2.9 g/dL (3.5-5.2); Alkaline Phosphatase 113 IU/L (40-130); Anion Gap 13.4 (5-19); Aspartate Amino Transferase 64 U/L (0-40); Blood Urea Nitrogen 35 mg/dL (8-23); Calcium 8.7 mg/dL (8.5-10.5); Carbon Dioxide 27 mmol/L (22-29); Chloride 97 mmol/L (98-107); Glucose 168 mg/dL (65-115); Osmolality Calculated 277 mOsm/kg (285-295); Potassium 4.4 mmol/L (3.5-5.1); Sodium 133 mmol/L (136-145); Total Bilirubin 0.4 mg/dL (0.15-1.2); Total Protein 6.9 g/dL (6.6-8.7)
[2019-08-03 05:29] LABS: Magnesium 1.9 mg/dL (1.7-2.3)
[2019-08-03] MEDS: aspirin 81 mg EC Tablet PO (08:00)
[2019-08-03] MEDS: dilTIAZem ER (24HR) 240 mg Capsule PO (08:00)
[2019-08-03] MEDS: FUROsemide 40 mg Tablet 60 MG PO (08:00)
[2019-08-03] MEDS: predniSONE 20 mg Tablet 40 MG PO (08:01)
[2019-08-03] MEDS: nicotine 14 mg Patch 1 PATCH TRANSDERMA (08:02)
[2019-08-03] MEDS: metoprolol tartrate 50 mg Tablet PO (08:02)
[2019-08-03] MEDS: apixaban 5 mg Tablet PO (08:04)
--- NOTE | 2019-08-03 12:04 | PC.SOCIAL ---
Pg 2 IMM Explained to pt Pg 2 IMM. Pt verbally understands. No questions voiced. Provided pt a copy & left on pt's bedside table. Signed, dated, & timed a copy & placed in pt's chart.
--- NOTE | 2019-08-03 13:36 | PM.DCS ---
Discharge Providers Date of Admission: 07/31/19 16:58 Date of Discharge: August 03, 2019 Attending Provider at Admission: Pola Valerio Attending Provider at Discharge: Pola Valerio Diagnoses at Discharge Discharge Diagnosis (1) Atrial fibrillation with RVR: Status: Acute (2) Acute and chronic respiratory failure: Status: Acute (3) COPD exacerbation: Status: Acute (4) Incisional hernia: Status: Acute (5) Hepatitis C: Status: Acute Reason for Visit Reason for Visit: Reason For Visit: A-FIB WITH RVR, COPD EXACERBATION Hospital Course Hospital Course: Pleasant 74-year-old gentleman with history of COPD, CHF, atrial fibrillation, abdominal hernia was readmitted to the hospital after presenting with worsening shortness of breath, and found to have A. fib with RVR, heart rates in the 160s initially, I am improved with Cardizem drip. He was weaned off the drip and restarted on his home medications with Cardizem and metoprolol, initially 25 mg, however, still with persistent A. fib with RVR, and metoprolol was increased to 50 mg. On presentation also noted in COPD exacerbation, for which was treated with IV steroid, Levaquin, breathing treatments, oxygen support. His oxygenation has improved, remained stable, and overall he is doing better. He is at high risk of readmission, and due to this will be referred for additional evaluation by pulmonology. He should continue follow-up with cardiology, as well as with surgery for his abdominal hernia which frequently causes him pain, although has been reducible. Continue also follow-up for treatment of chronic hepatitis C. Physical Exam Const: COMMON NORMALS: no apparent distress and oriented x3 GENERAL APPEARANCE: anxious OTHER: Sitting up at bedside. Nasal cannula is on his forehead, he states he did not put it back on after finishing eating. Encouraged him to wear nasal cannula as he is supposed to. He is otherwise conversant, in good spirits. Feeling slightly better. HENMT: COMMON NORMALS: oropharynx normal Neck/C-Spine: COMMON NORMALS: no JVD Resp: COMMON NORMALS: normal respiratory effort AUSCULTATION: wheezes (Improving) and diminished lung sounds Cardio: COMMON NORMALS: no JVD, S1 normal heart sound, S2 normal heart sound and no murmurs RHYTHM: abnormal rhythm irregularly irregular HEART SOUNDS: S1 normal and S2 normal GI: COMMON NORMALS: normal to inspection, nondistended, normoactive bowel sounds, soft to palpation and non-tender PALPATION: Yes soft and Yes other (Reducible hernia left lower quadrant abdomen, distended, 10 x 10 cm, but reducible in supine positioning) Extremity: COMMON NORMALS: no joint enlargement GENERAL: Yes edema (trace) Neuro: COMMON NORMALS: oriented x3 and moves all extremities Skin: COMMON NORMALS: no rashes or lesions noted GENERAL SKIN EXAM: no rashes or lesions noted Discharge Data Data Completed and Pending: Completed Studies During Hospitalization Category Date Time Status XR chest 1V negrito ble 60[address] Urgent Exams 07/31/19 16:15 Completed Pending at discharge Category Date Time Status Sputum Culture an d Gram Stain [facility] Lab 07/31/19 18:52 Uncollected Labs from last 24 hours 08/03/19 08/03/19 08/03/19 04:11 04:11 04:11 WBC 13.1 H RBC 2.95 L Hgb 11.1 L Hct 32.5 L MCV 110.2 H MCH 37.6 H MCHC 34.2 RDW 13.0 Plt Count 200 MPV 11.3 H Neut % (Auto) 83.3 Lymph % (Auto) 8.0 [place] % (Auto) 7.9 Eos % (Auto) 0.0 Baso % (Auto) 0.1 Neut # (Auto) 10.9 H Lymph # (Auto) 1.0 [place] # (Auto) 1.0 H Eos # (Auto) 0.0 Baso # (Auto) 0.0 Nucleated RBC % (a uto) 0 Nucleated RBCs # 0.0 Sodium 133 L Potassium 4.4 Chloride 97 L Carbon Dioxide 27 Anion Gap 13.4 BUN 35 H Creatinine 1.0 Glucose 168 H Calculated Osmolal ity 277 L Calcium 8.7 Magnesium 1.9 Total Bilirubin 0.4 AST 64 H ALT 67 H Alkaline Phosphata se 113 Total Protein 6.9 Albumin 2.9 L Globulin 4.0 Vitals: Last Vital Signs Temp 97.6 F 08/03/19 10:37 Pulse 84 08/03/19 12:40 Resp 20 H 08/03/19 12:40 BP 144/90 08/03/19 10:37 Pulse Ox 86 L 08/03/19 12:40 Discharge Plan Discharge Patient Disposition: Home, Self-Care Condition: Stable Prescriptions: New prednisone 20 mg Tablet See Rx Instructions .ROUTE .COMPLEX Qty: 21 RF: 0 levofloxacin [Levaquin] 750 mg tablet 750 mg PO DAILY 5 Days Qty: 5 RF: 0 polyethylene glycol 3350 [Miralax] 17 gram/dose powder 17 gm PO DAILY Qty: 510 RF: 0 metoprolol tartrate 50 mg Tablet 50 mg PO BID Qty: 60 RF: 0 Continued albuterol sulfate [ProAir HFA] 90 mcg/actuation Hfa Aerosol Inhaler See Rx Instructions .ROUTE .COMPLEX Qty: 8.5 RF: 0 aspirin [Aspir-81] 81 mg Tablet,Delayed Release (Dr/Ec) 81 mg PO DAILY 30 Days Qty: 30 RF: 0 nitroglycerin [Nitrostat] 0.4 mg Tablet, Sublingual 0.4 mg SUBLINGUAL Q5M PRN (Reason: Chest Pain) 3 Days Qty: 3 RF: 0 Eliquis 5 mg Tablet 5 mg PO BID 30 Days Qty: 60 RF: 0 lisinopril 20 mg Tablet 20 mg PO BID RF: 0 potassium chloride 20 mEq Tablet Extended Release 20 meq PO BID RF: 0 Spiriva Respimat 1.25 mcg/actuation mist See Rx Instructions .ROUTE .COMPLEX RF: 0 diltiazem HCl 240 mg Capsule,Extended Release 24hr 240 mg PO DAILY Qty: 30 RF: 0 furosemide [Lasix] 40 mg tablet 60 mg PO QAM Qty: 45 RF: 0 albuterol sulfate 0.63 mg/3 mL solution for nebulization 0.63 mg INHALATION Q4H PRN (Reason: shortness of breath or wheezing) Qty: 180 RF: 0 Discontinued metoprolol tartrate 25 mg Tablet 25 mg PO BID Qty: 60 RF: 0 Discharge Orders: Discharge Order (Routine); Ordered 08/03/19 Ordered By: Pola Valerio Referrals: [facility]) [Outside] Arsen Santo MD [Physician] - 2 weeks (Hep C) Philip Dyson FNP-C [Nurse Practitioner] - 08/06/19 10:40 am Dejon Gomez MD [Physician] - 1 week (hernia pain) Michael Broussard MD [Physician] - 1 week (AFib w RVR) Dorota Wallace MD [Physician] - 1 week (COPD) Discharge Diet: Cardiac Discharge Activity: Increase activity as tolerated and Oxygen as instructed Activity Restrictions/Additional Instructions: Continue oxygen at home as per home evaluation. Please monitor your heart rates at home, record values to bring to your appointment. If you experience persistently high heart rates, non-resolving chest pain, persistent or worsening shortness of breath, severe pain in the abdomen, or change in condition of the hernia becoming hard, unable to be reduced, please seek medical attention without delay. Discharge Attestations Time Spent in Discharge Care*: greater than 30 min Quality Metrics Clinical Quality Measures During this hospital stay, did patient experience: None Coding Level of Care Code Acute [employer] for Gretel Fwd Diagnoses Atrial fibrillation with RVR I48.91 Acute and chronic respiratory failure J96.20 COPD exacerbation J44.1 Incisional hernia K43.2 Hepatitis C B19.20
[2019-08-03] MEDS: polyethylene glycol 3350 Pkt 17 gm PO (13:54)
[2019-08-03] MEDS: levoFLOXacin 750 mg Tablet PO (13:54)
--- NOTE | 2019-08-03 15:59 | PC.NURSE ---
Edson brought portable oxygen tank for the pt to get through his home
== END 2019-08-03 16:43 | disposition home or self-care (01) | DRG 189 ==
LOC: ER 17:24 → MEDSURG 17:36 → ICU 17:54 → MEDSURG 08-01 18:03
PROVIDERS: Admitting Provider Internal Medicine; Emergency Provider Emergency Medicine; Family Provider Family Medicine; Visit Provider Internal Medicine
DX: J96.21 Acute and chronic respiratory failure with hypoxia (principal); J44.1 Chronic obstructive pulmonary disease with (acute) exacerbation; I48.91 Unspecified atrial fibrillation; Z99.81 Dependence on supplemental oxygen; M54.9 Dorsalgia, unspecified; I25.10 Atherosclerotic heart disease of native coronary artery without angina pectoris; K21.9 Gastro-esophageal reflux disease without esophagitis; I10 Essential (primary) hypertension; G47.00 Insomnia, unspecified; F17.210 Nicotine dependence, cigarettes, uncomplicated; E87.6 Hypokalemia; K43.2 Incisional hernia without obstruction or gangrene; B19.20 Unspecified viral hepatitis C without hepatic coma; Z79.01 Long term (current) use of anticoagulants; Z79.51 Long term (current) use of inhaled steroids; Z79.82 Long term (current) use of aspirin
CPT/HCPCS: 12345; 36415; 36600; 71045; 71275; 74177; 80048; 80053; 82805; 83036; 83690; 83735; 83880; 84100; 84484; 85025; 85378; 85610; 87804; 93005; 94640; 94664; 96374; 96375; 99281; 99283; G0378; J1170; J1940; J1956; J2270; J2930; J3490; J3535; J7512; J7611; Q9967

== ENCOUNTER 2019-08-05 10:50 | Inpatient (IN) | payer MEDICARE, MEDICAID, SELFPAY ==
[2019-08-05] VITALS (17 sets, daily range): BP systolic 123–177; BP diastolic 78–128; PULSE 54–159; RESP 18–23; TEMP 36.6–36.7; O2SAT 92–100; BMI 26.5
--- NOTE | 2019-08-05 11:08 | XR_ITS ---
WS: [id number] XR chest 1V portable [id number] REASON FOR EXAM: chest pain FINDINGS: Chronic changes both lung quintana are seen. The heart is not enlarged. Deformity of the left shoulder suggesting a remote impacted fracture of the humerus this was noted on previous exam of July 31, 2019. There is no definite pneumonia, pleural effusion, pulmonary edema, or pneumothorax. XR/XR chest 1V portable [id number] IMPRESSION: Chronic changes both lung quintana.
--- NOTE | 2019-08-05 11:08 | ECG_ITS ---
Measurements Intervals [place] Rate: 82 P: [place]: 0 QRS: 24 QRSD: 89 T: 64 QT: 340 QTc: 398 ATRIAL FLUTTER/TACHYCARDIA ABNORMAL RHYTHM ECG Compared to ECG 07/31/2019 23:44:45 Sinus rhythm no longer present Electronically Signed On 08-05-2019 17:14:17 CDT by Jeannie Ibarra M.D. [email or web address]
[2019-08-05 11:38] LABS: Basophils % 0.1 %; Eosinophils % 0.1 %; Lymphocytes # 1.1 10^3/uL (0.8-4.8); Mean Corpuscular HGB Conc 32.4 g/dL (30.0-36.0); Mean Corpuscular Hemoglobin 35.3 pg (28.0-34.0); Mean Corpuscular Volume 108.8 fL (80-94); Monocytes % 7.4 %; Neutrophils # 11.2 10^3/uL (1.8-7.7); Neutrophils % 83.3 %; Nucleated Red Blood Cells % 0 %; Platelet Count 236 10^3/cmm (130-400); Red Cell Distribution Width 13.1 % (12.1-15.1); White Blood Count 13.5 10^3/uL (4.0-10.0)
--- NOTE | 2019-08-05 11:43 | ED_ITS ---
HPI - Arrhythmia/Palpitations General: Chief Complaint: Arrhythmia/Palpitations Stated Complaint: SOB, AFIB, ABD PAIN Time Seen by Provider: 08/05/19 11:00 Source: patient, EMS and RN notes reviewed Mode of arrival: EMS Limitations: other (shortness of breath) History of Present Illness: HPI narrative: 74-year-old gentleman with a history of COPD, A. fib, hepatitis C, CHF who presents to the emergency department with complaints of shortness of breath. He states that his symptoms started about 3 days ago and have gradually worsened. He does have occasional palpitations but his main issue is difficulty breathing. He states that it is hard for him to catch his breath and does not feel like there is oxygen getting into his lungs. He also has chronic respiratory failure and he is on home oxygen. When the ambulance found him he was apparently tripoding and tachypneic and had a heart rate in the 180s. He was given a bolus of diltiazem 20 mg IV and then started on a drip, however the drip was discontinued when his heart rate went down into the 90s. His heart rate is currently in the 150s. He denies any change in his medications, states he is compliant with his medic ations. He denies a fever or cough. MD complaint: heart racing Onset (ago): day(s) Associated symptoms: Deny nausea or vomiting Review of Systems General: Reports: 10 or more systems reviewed and unremarkable except in HPI and below Const: Denies: fever, chills or body aches Eyes: Denies: change in vision or blurry vision ENMT: Denies: throat pain, enlarged tonsils, painful swallowing, hoarseness, mouth pain or swelling of lips/tongue Card: Reports: chest pain; Denies: palpitations, irregular heart rhythm, edema or swelling of feet/ankles Resp: Reports: shortness of breath; Denies: productive cough or non-productive cough GI: Denies: abdominal pain, nausea or vomiting : Denies: flank pain, painful urination, urinary frequency, urinary urgency or urinary hesitancy Musc: Denies: neck pain, back pain or extremity swelling Skin/Breast: Denies: rash, itching or redness Neuro: Denies: headache, numbness in extremities or weakness in extremities Endo: Denies: excessive urination, excessive thirst or tired all the time PFSH ED PFSH: Medical History A-fib Back pain COPD (chronic obstructive pulmonary disease) Coronary artery disease GERD (gastroesophageal reflux disease) Hypertension Incisional hernia Insomnia Non-compliant behavior Surgical History H/O exploratory laparotomy H/O laminectomy History of carpal tunnel surgery History of cholecystectomy S/P laparoscopic appendectomy Family History Father Cancer Other Hypertension Social History (Updated 08/05/19 @ 17:02 by Naina Max DO) Smoking and tobacco status: current every day smoker cigarettes Packs smoked per day: 0.5 Alcohol intake: former Year of sobriety/quit date alcohol: 6 years ago Former alcohol use details: Heavy alcohol use Substance/Drug Use: current Substance/Drug use frequency: few times a week Substance/Drug use type: Marijuana Other substance/drug use details: occ MJ Lives independently: Yes Household members: family and children Housing: House Physical Exam Const: COMMON NORMALS: no apparent distress, average body habitus, oriented x3, no limitations, healthy appearing, alert and well nourished HENMT: COMMON NORMALS: normocephalic, head/scalp atraumatic and moist oral mucous membranes HEAD & SCALP: normocephalic and atraumatic Eye: COMMON NORMALS: PERRL, EOMs intact bilaterally, conjunctivae normal and no scleral icterus CONJUNCTIVA: Yes conjunctivae normal PUPIL: Yes PERRL Neck/C-Spine: COMMON NORMALS: full ROM, supple, no meningeal signs, no JVD and no carotid bruits Resp: COMMON NORMALS: no retractions, no use of accessory muscles and percussion normal EFFORT & INSPECTION: Yes tachypneic, Yes pursed lip breathing and Yes labored AUSCULTATION: crackles Laterality: bilateral PERCUSSION: percussion normal Cardio: COMMON NORMALS: no JVD, regular rate, regular rhythm, S1 normal heart sound, S2 normal heart sound, no gallops, no clicks, no murmurs, no rub and peripheral pulses 2+ throughout RATE: regular rate RHYTHM: regular rhythm HEART SOUNDS: S1 normal and S2 normal PERIPHERAL PULSES: pulses 2+ throughout GI: COMMON NORMALS: normal to inspection, nondistended, normoactive bowel sounds, soft to palpation, non-tender, no hepatosplenomegaly, no masses and no bruits PALPATION: Yes soft and Yes no hepatosplenomegaly : COMMON NORMALS: Yes no CVA tenderness BLADDER/KIDNEY EXAM: Yes no CVA tenderness Back/Pelvis: COMMON NORMALS: no CVA tenderness Extremity: COMMON NORMALS: normal to inspection, full ROM, normal capillary refill and no calf tenderness GENERAL: Yes edema (2+ bilateral pitting pedal edema) Neuro: COMMON NORMALS: oriented x3 SENSORIUM/ORIENTATION: Yes alert MENINGEAL SIGNS: Yes no meningeal signs Skin: COMMON NORMALS: no rashes or lesions noted, no wounds, skin turgor normal, no jaundice, no petechiae and no mottling GENERAL SKIN EXAM: no rashes or lesions noted and turgor normal Course Consultations: Consultation #1: Dr. Max, hospitalist. She kindly accepted the patient to her service. Vital Signs: Vital signs: Vital Signs Temperature 98.0 F 08/05/19 19:35 Pulse Rate 69 08/05/19 19:35 Respiratory Rate 18 08/05/19 19:35 Blood Pressure 132/78 08/05/19 19:35 Pulse Oximetry 92 08/05/19 19:35 MDM - Arrhythmia/Palpitations MDM Narrative: Medical decision making narrative: 74-year-old gentleman who presents to the emergency department in A. fib with RVR. He required multiple bolus doses of intravenous diltiazem and eventually had to be placed on a diltiazem drip. He is a gentleman who was recently discharged from this hospital but has not picked up any of the medications that he was prescribed for his A. fib. He has not taken his Cardizem and his metoprolol. He is admitted under observation status for further work-up and management. Medical Records: Attestation: I reviewed the patient's medical records. Lab Data: Labs: Lab Results 08/05/19 08/05/19 08/05/19 Range/Units 11:28 11:28 11:28 WBC 13.5 H (4.0-10.0) 10^3/ uL RBC 3.40 L (4.1-5.3) 10^6/u L Hgb 12.0 (11.7-16.6) g/dL Hct 37.0 L (42.0-52.0) % MCV 108.8 H (80-94) fL MCH 35.3 H (28.0-34.0) pg MCHC 32.4 (30.0-36.0) g/dL RDW 13.1 (12.1-15.1) % Plt Count 236 (130-400) 10^3/c mm MPV 11.0 H (7.4-10.4) fL Neut % (Auto) 83.3 % Lymph % (Auto) 8.0 % [facility] % (Auto) 7.4 % Eos % (Auto) 0.1 % Baso % (Auto) 0.1 % Neut # (Auto) 11.2 H (1.8-7.7) 10^3/u L Lymph # (Auto) 1.1 (0.8-4.8) 10^3/u L [facility] [place] # (Auto) 1.0 H (0.2-0.9) 10^3/u L Eos # (Auto) 0.0 (0.0-0.8) 10^3/u L Baso # (Auto) 0.0 (0.0-0.1) 10^3/u L Nucleated RBC % (a uto) 0 % Nucleated RBCs # 0.0 /100WBC D-Dimer 1.17 H (0-0.59) ug/mIFE U Sodium 135 L (136-145) mmol/L Potassium 4.3 (3.5-5.1) mmol/L Chloride 101 (98-107) mmol/L Carbon Dioxide 27 (22-29) mmol/L Anion Gap 11.3 (5-19) BUN 29 H (8-23) mg/dL Creatinine 0.7 (0.7-1.2) mg/dL Glucose 164 H (65-115) mg/dL Calculated Osmolal ity 281 L (285-295) mOsm/k g Calcium 8.2 L (8.5-10.5) mg/dL Total Bilirubin 1.0 (0.15-1.2) mg/dL AST 59 H (0-40) U/L ALT 70 H (0-41) U/L Alkaline Phosphata se 119 (40-130) IU/L Troponin T Baselin e (0-15) ng/mL Troponin T 120 Min [place] (0-15) ng/mL Delta Troponin T (0-10) ABS# NT-Pro-B Natriuret Pep 4699 H (0-125) pg/mL Total Protein 7.1 (6.6-8.7) g/dL Albumin 2.9 L (3.5-5.2) g/dL Globulin 4.2 (1.3-4.6) g/dL Lipase 32 (13-60) U/L 08/05/19 08/05/19 Range/Units 11:28 13:01 WBC (4.0-10.0) 10^3/ uL RBC (4.1-5.3) 10^6/u L Hgb (11.7-16.6) g/dL Hct (42.0-52.0) % MCV (80-94) fL MCH (28.0-34.0) pg MCHC (30.0-36.0) g/dL RDW (12.1-15.1) % Plt Count (130-400) 10^3/c mm MPV (7.4-10.4) fL Neut % (Auto) % Lymph % (Auto) % [facility] [place] % (Auto) % Eos % (Auto) % Baso % (Auto) % Neut # (Auto) (1.8-7.7) 10^3/u L Lymph # (Auto) (0.8-4.8) 10^3/u L [facility] [place] # (Auto) (0.2-0.9) 10^3/u L Eos # (Auto) (0.0-0.8) 10^3/u L Baso # (Auto) (0.0-0.1) 10^3/u L Nucleated RBC % (a uto) % Nucleated RBCs # /100WBC D-Dimer (0-0.59) ug/mIFE U Sodium (136-145) mmol/L Potassium (3.5-5.1) mmol/L Chloride (98-107) mmol/L Carbon Dioxide (22-29) mmol/L Anion Gap (5-19) BUN (8-23) mg/dL Creatinine (0.7-1.2) mg/dL Glucose (65-115) mg/dL Calculated Osmolal ity (285-295) mOsm/k g Calcium (8.5-10.5) mg/dL Total Bilirubin (0.15-1.2) mg/dL AST (0-40) U/L ALT (0-41) U/L Alkaline Phosphata se (40-130) IU/L Troponin T Baselin e 21 H (0-15) ng/mL Troponin T 120 Min [place] 19.38 H (0-15) ng/mL Delta Troponin T -1.62 L (0-10) ABS# NT-Pro-B Natriuret Pep (0-125) pg/mL Total Protein (6.6-8.7) g/dL Albumin (3.5-5.2) g/dL Globulin (1.3-4.6) g/dL Lipase (13-60) U/L Imaging Data^: CT Chest: Radiologist's impression: [place] [address] CT Scan Report Signed Patient: Robert Torres #: [id number] : 7Acct#:[id number] Age/Sex: 74 / MADM Date: 08/05/19 Loc: ERRoom/Bed: Attending Dr: Ordering Provider/Ordering MD: Maddy Chan MD, [facility] [place] Date of Service: 08/05/19 Procedure(s): CT angio chest w abd pel w con Accession Number(s): [id number] Report Number: [id number] WS: [id number] CT angio chest w abd pel w con REASON FOR EXAM: SOB,ELEVATED D DIMER, TACHYCARDIA - painful abdominal hernia TECHNIQUE: Coronal and sagittal 2-D and MIP reformations. IV CONTRAST ADMINISTERED: Omnipaque 350 95 mL. TOTAL EXAM DLP: 1883.[address] scans at [facility] use at least one of these dose optimization techniques: automated exposure control; mA and/or kV adjustment per patient size (includes targeted exams where dose is matched to clinical indication); or iterative reconstruction. FINDINGS: After the bolus injection of contrast the pulmonary vasculature fill readily. No definite filling defect to suggest pulmonary embolus or thrombus. The heart is moderately enlarged. The thyroid show no abnormalities. The peripheral lungs showed chronic obstructive pulmonary disease but no definite perfusion defects to suggest thromboembolic disease. There is a small amount of right pleural effusion evident. No pneumonia, mass effect, The thoracic aorta was normal. In the abdomen the liver appear to be normal showed normal enhancement. The spleen was normal The stomach, adrenal glands, aorta, inferior vena cava were all normal. In the left midabdomen is an abdominal wall hernia with bowel in the hernia but no strangulation. The bladder was normal the right hip shows artifacts from metal. CT/CT angio chest w abd pel w con IMPRESSION: No definite thromboembolic changes. Midline to the left side abdominal wall hernia. Small amount of right pleural effusion. Dictated By:Jame Cruz DO Signed By:Jame Cruz DOSigned Date/Time:08/05/19 1443 DD/ 1437 EKG Data^: EKG 1: Attestation: I personally reviewed and interpreted this EKG as follows: EKG interpretation date: 08/05/19 EKG interpretation time: 11:05 Prior EKG tracings: not available for review Interpretation: Some leads appear to be sinus tachycardia in some leads appeared to be A. fib. Heart rate 145 beats a minute. Other EKG comments: Chest X-Ray 08/05/19 11:08 IMPRESSION: Chronic changes both lung quintana. Chest/Abdomen/Pelvis CT 08/05/19 11:43 IMPRESSION: No definite thromboembolic changes. Midline to the left side abdominal wall hernia. Small amount of right pleural effusion. EKG 2: Attestation: I personally reviewed and interpreted this EKG as follows: EKG interpretation date: 08/05/19 EKG interpretation time: 11:32 Prior EKG tracings: available for review Interpretation: Post 20 mg IV of Cardizem. Atrial flutter Heart rate [address] changes. Other EKG comments: Chest X-Ray 08/05/19 11:08 IMPRESSION: Chronic changes both lung quintana. Chest/Abdomen/Pelvis CT 08/05/19 11:43 IMPRESSION: No definite thromboembolic changes. Midline to the left side abdominal wall hernia. Small amount of right pleural effusion. EKG 3: Attestation: I personally reviewed and interpreted this EKG as follows: EKG interpretation date: 08/05/19 EKG interpretation time: 12:59 Interpretation: No significant change from earlier today. Other EKG comments: Chest X-Ray 08/05/19 11:08 IMPRESSION: Chronic changes both lung quintana. Chest/Abdomen/Pelvis CT 08/05/19 11:43 IMPRESSION: No definite thromboembolic changes. Midline to the left side abdominal wall hernia. Small amount of right pleural effusion. Discharge Plan Discharge Patient Disposition: Admitted As Inpatient Admit Provider: Naina Max Clinical Impression: Atrial fibrillation with RVR Condition: Stable Interventions: ED Discharge Assessment Last Done: 08/05/19 16:50 ED Charges Last Done: 08/05/19 16:50 Discharge Date/Time: 08/05/19 17:22 Coding Level of Care Code ED Equine Vet for Chg Fwd Exam Comprehensive
[2019-08-05 12:00] LABS: D Dimer 1.17 ug/mIFEU (0-0.59)
[2019-08-05 12:08] LABS: Troponin(5th) Baseline 21 ng/mL (0-15)
[2019-08-05 12:15] LABS: Alanine Aminotransferase 70 U/L (0-41); Albumin Level 2.9 g/dL (3.5-5.2); Alkaline Phosphatase 119 IU/L (40-130); Anion Gap 11.3 (5-19); Aspartate Amino Transferase 59 U/L (0-40); Blood Urea Nitrogen 29 mg/dL (8-23); Calcium 8.2 mg/dL (8.5-10.5); Carbon Dioxide 27 mmol/L (22-29); Chloride 101 mmol/L (98-107); Globulin 4.2 g/dL (1.3-4.6); Glucose 164 mg/dL (65-115); Lipase 32 U/L (13-60); NT Pro B Type Natriuretic Pept 4699 pg/mL (0-125); Osmolality Calculated 281 mOsm/kg (285-295); Potassium 4.3 mmol/L (3.5-5.1); Sodium 135 mmol/L (136-145); Total Protein 7.1 g/dL (6.6-8.7)
[2019-08-05] MEDS: iohexol 300 mg/mL 50 mL Btl PO (12:17)
--- NOTE | 2019-08-05 13:08 | ECG_ITS ---
Measurements Intervals [place] Rate: 105 P: [place]: 0 QRS: 44 QRSD: 86 T: 63 QT: 311 QTc: 413 ATRIAL FIBRILLATION WITH RAPID VENTRICULAR RESPONSE WITH ABERRANT CONDUCTION OR VENTRICULAR PREMATURE COMPLEXES ABNORMAL RHYTHM ECG Compared to ECG 07/31/2019 23:44:45 Aberrant conduction of supraventricular beat(s) now present Ventricular premature complex(es) now present Sinus rhythm no longer present Electronically Signed On 08-05-2019 17:21:25 CDT by Jeannie Ibarra M.D. [email or web address]
[2019-08-05] MEDS: iohexol 350 mg/mL 100 mL Btl IV (13:14)
[2019-08-05 13:44] LABS: Troponin 5 2HR 19.38 ng/mL (0-15)
[2019-08-05 13:53] LABS: Troponin 5 2HR Delta -1.62 ABS# (0-10)
[2019-08-05] MEDS: morphine 4 mg/mL SDV 1 mL 8 MG IVP (14:24)
--- NOTE | 2019-08-05 16:58 | PM.HP ---
Providers/Chief Complaint Admitting Physician: Naina Max DO Chief Complaint: SOB, AFIB, ABD PAIN History of Present Illness Robert Torres is a 74 year old male that presented to the emergency department today for palpitations and chest discomfort. He reported that he was recently discharged from the hospital but had not picked up any of his medications that were prescribed at time of discharge. He stated that he was not feeling well therefore came into the ER today for further evaluation and treatment. Patient denies any recent fevers, no change in oxygen requirements. He stated that he is uncertain how much oxygen he is on at home, he will typically increase his oxygen all the way up until he feels improvement. He states that he has not had any of his medications today including his cardiac medications. He stated that he was discharged to home with home health, however home health does not come to visit his home. He stated that he is supposed to be on a CPAP or device to use at bedtime but he is not tolerating it. Patient reports that his chest pain has now resolved with improvement in his blood pressure and heart rate. Patient was seen and evaluated in the emergency department noted to have concern for atrial fibrillation with RVR and fluid overload he was placed on a Cardizem drip. Review of Systems Const: Denies: fever or chills Eyes: Denies: change in vision ENMT: Denies: nasal congestion Card: Reports: chest pain, palpitations and edema Resp: Reports: shortness of breath; Denies: productive cough or coughing up blood GI: Denies: abdominal pain, nausea, vomiting, diarrhea, constipation, blood in stool or black tarry stool : Denies: painful urination or blood in urine Musc: Denies: extremity pain or muscle cramps Skin/Breast: Denies: rash or new lesion Neuro: Denies: headache or dizziness Psych: Denies: anxiety or depression Endo: Denies: excessive urination or hot flashes Juan C/Lymph: Denies: easy bruising or easy bleeding Medications/Allergies Home Medications Medication Instructions Recorded Confirmed Last Taken Type albuterol sulfate [ProAir HFA] See Rx Instructions .ROUTE 06/07/19 08/05/19 06/15/19 09:00 Rx .COMPLEX #8.5 gm Eliquis 5 mg PO BID 30 Days #60 tab 06/19/19 08/05/19 07/30/19 Rx aspirin [Aspir-81] 81 mg PO DAILY 30 Days #30 tab 06/19/19 08/05/19 Unknown Rx nitroglycerin [Nitrostat] 0.4 mg SUBLINGUAL Q5M PRN 3 Days 06/19/19 08/05/19 Unknown Rx #3 tab albuterol sulfate 0.63 mg INHALATION Q4H PRN #180 ml 07/18/19 08/05/19 Unknown Rx diltiazem HCl 240 mg PO DAILY #30 cap 07/18/19 08/05/19 07/30/19 Rx furosemide [Lasix] 60 mg PO QAM #45 tab 07/18/19 08/05/19 07/30/19 Rx Spiriva Respimat 2 puff INHALATION DAILY 07/31/19 08/05/19 Unknown History lisinopril 20 mg PO DAILY 07/31/19 08/05/19 07/30/19 History potassium chloride 40 meq PO DAILY 07/31/19 08/05/19 07/30/19 History levofloxacin [Levaquin] 750 mg PO DAILY 5 Days #5 tab 08/03/19 08/05/19 Unknown Rx metoprolol tartrate 50 mg PO BID #60 tab 08/03/19 08/05/19 Unknown Rx polyethylene glycol 3350 [Miralax] 17 gm PO DAILY #510 gm 08/03/19 08/05/19 Unknown Rx prednisone See Rx Instructions .ROUTE 08/03/19 08/05/19 Unknown Rx .COMPLEX #21 tab diltiazem HCl 120 mg PO DAILY 08/05/19 08/05/19 Unknown History folic acid 1 mg PO DAILY 08/05/19 08/05/19 Unknown History Allergies Allergy/AdvReac Type Severity Reaction Status Date / Time No Known Allergies Allergy Verified 08/05/19 11:00 PFSH Acute PFSH: Medical History A-fib Back pain COPD (chronic obstructive pulmonary disease) Coronary artery disease GERD (gastroesophageal reflux disease) Hypertension Incisional hernia Insomnia Non-compliant behavior Surgical History H/O exploratory laparotomy H/O laminectomy History of carpal tunnel surgery History of cholecystectomy S/P laparoscopic appendectomy Family History Father Cancer Other Hypertension Social History (Updated 08/05/19 @ 17:02 by Naina Max DO) Smoking and tobacco status: current every day smoker cigarettes Packs smoked per day: 0.5 Alcohol intake: former Year of sobriety/quit date alcohol: 6 years ago Former alcohol use details: Heavy alcohol use Substance/Drug Use: current Substance/Drug use frequency: few times a week Substance/Drug use type: Marijuana Other substance/drug use details: occ MJ Lives independently: Yes Household members: family and children Housing: House Vitals/I&O/Wt Last Vital Signs Temp 97.9 F 08/05/19 11:04 Pulse 101 H 08/05/19 16:50 Resp 22 H 08/05/19 16:50 BP 160/84 08/05/19 16:50 Pulse Ox 96 08/05/19 16:50 Weight last 48 hrs Weight 83.915 kg Physical Exam Const: COMMON NORMALS: oriented x3 and alert GENERAL APPEARANCE: cooperative and disheveled ORIENTATION/CONSCIOUSNESS: Yes awake, Yes oriented to person, Yes oriented to place and Yes oriented to time HENMT: COMMON NORMALS: normocephalic and head/scalp atraumatic HEAD & SCALP: normocephalic and atraumatic Eye: COMMON NORMALS: PERRL PUPIL: Yes PERRL Neck/C-Spine: COMMON NORMALS: supple GENERAL: Yes normal visual inspection Resp: COMMON NORMALS: normal respiratory effort EFFORT & INSPECTION: Yes able to speak in complete sentences AUSCULTATION: no rhonchi and no wheezes OTHER: Diminished breath sounds bilaterally, no appreciable wheezing or rhonchi Cardio: OTHER: Irregularly irregular, tachycardic, systolic murmur present GI: OTHER: Obese, soft, nontender, normal bowel sounds, patient does have a large periumbilical hernia, no acute erythema or tenderness to palpation : COMMON NORMALS: Yes no CVA tenderness BLADDER/KIDNEY EXAM: Yes no CVA tenderness Back/Pelvis: COMMON NORMALS: no CVA tenderness Extremity: COMMON NORMALS: no calf tenderness OTHER: Distal clubbing in the hands, 1+ pitting edema in the lower extremities bilaterally Neuro: COMMON NORMALS: oriented x3, CN's II-XII intact bilaterally, moves all extremities and no focal motor deficits SENSORIUM/ORIENTATION: Yes alert, Yes oriented to person, Yes oriented to place and Yes oriented to time SPEECH: speech normal Psych: COMMON NORMALS: mental status grossly normal Skin: COMMON NORMALS: no rashes or lesions noted GENERAL SKIN EXAM: no rashes or lesions noted Data : 08/05/19 11:28 08/05/19 11:28 CXR: I personally reviewed and interpreted this imaging study as follows: Radiologist's impression: FINDINGS: Chronic changes both lung quintana are seen. The heart is not enlarged. Deformity of the left shoulder suggesting a remote impacted fracture of the humerus this was noted on previous exam of July 31, 2019. There is no definite pneumonia, pleural effusion, pulmonary edema, or pneumothorax. XR/XR chest 1V portable [id number] IMPRESSION: Chronic changes both lung quintana. CT Abd/Pel: I personally reviewed and interpreted this imaging study as follows: Radiologist's impression: FINDINGS: After the bolus injection of contrast the pulmonary vasculature fill readily. No definite filling defect to suggest pulmonary embolus or thrombus. The heart is moderately enlarged. The thyroid show no abnormalities. The peripheral lungs showed chronic obstructive pulmonary disease but no definite perfusion defects to suggest thromboembolic disease. There is a small amount of right pleural effusion evident. No pneumonia, mass effect, The thoracic aorta was normal. In the abdomen the liver appear to be normal showed normal enhancement. The spleen was normal The stomach, adrenal glands, aorta, inferior vena cava were all normal. In the left midabdomen is an abdominal wall hernia with bowel in the hernia but no strangulation. The bladder was normal the right hip shows artifacts from metal. CT/CT angio chest w abd pel w con IMPRESSION: No definite thromboembolic changes. Midline to the left side abdominal wall hernia. Small amount of right pleural effusion. A&P Assessment and plan (1) Atrial fibrillation with RVR: Patient with A. fib RVR, had recently been discharged 2 days prior with atrial fibrillation RVR at that time patient was prescribed metoprolol 50 mg twice daily along with continuation of his home Cardizem. Patient reports that he has not taken any of his medication today, has not picked up his new prescription We will restart Cardizem 240 mg daily and restart metoprolol 50 mg twice daily. Titrate off of Cardizem drip Patient is also on Eliquis 5 mg twice daily, will continue Status: Acute (2) Periumbilical hernia: Patient has a large left of midline periumbilical hernia, has outpatient follow-up with Dr. Gomez. We will continue close monitoring, no concern for incarceration at this time. Status: Acute (3) Hepatitis: Hepatitis C Status: Acute (4) Hyperglycemia: Patient with hyperglycemia, will check hemoglobin A1c. 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 Status: Acute Additional A&P Information Moderate aortic stenosis Trace tricuspid regurgitation Moderate mitral valve regurgitation Tobacco abuse THC abuse History of alcohol abuse COPD with recent exacerbation, recently prescribed Levaquin, will continue to complete patient's course DVT prophylaxis: Continue home Eliquis Diet: Cardiac CODE STATUS: Full code Attestations Medical Necessity Statement*: Observation due to atrial fibrillation with RVR due to medication noncompliance. Expected stay less than 2 midnights Coding Level of Care Code Acute [place] for Chg Fwd Diagnoses Atrial fibrillation with RVR I48.91 Periumbilical hernia K42.9 Hepatitis K75.9 Hyperglycemia R73.9 Non-compliant behavior R46.89
--- NOTE | 2019-08-05 17:08 | ECG_ITS ---
Measurements Intervals [place] Rate: 58 P: ID: 0 QRS: 34 QRSD: 95 T: 53 QT: 393 QTc: 387 ATRIAL FIBRILLATION WITH SLOW VENTRICULAR RESPONSE ABNORMAL RHYTHM ECG Compared to ECG 08/05/2019 12:59:19 Aberrant conduction of supraventricular beat(s) no longer present Ventricular premature complex(es) no longer present Electronically Signed On 08-06-2019 17:15:08 CDT by Jay Solorio M.D. [email or web address]
[2019-08-05] MEDS: apixaban 5 mg Tablet PO (18:00)
[2019-08-05] MEDS: predniSONE 20 mg Tablet 40 MG PO (18:00)
[2019-08-05] MEDS: metoprolol tartrate 50 mg Tablet PO (18:00)
[2019-08-05] MEDS: dilTIAZem ER (24HR) 240 mg Capsule PO (18:00)
[2019-08-05 18:47] LABS: Troponin 5 6HR Delta -4.2 ng/L (0-12)
[2019-08-05] MEDS: HYDROmorphone 1 mg/mL INJ 1 mL 2 MG IVP (21:09)
[2019-08-05] MEDS: albuterol 8 gm MDI 2 PUFF INHALATION (23:40)
[2019-08-06] VITALS (14 sets, daily range): BP systolic 125–169; BP diastolic 66–93; PULSE 55–76; RESP 17–22; TEMP 36.4–37; O2SAT 91–99
[2019-08-06] MEDS: albuterol 8 gm MDI 2 PUFF INHALATION ×5 (03:00→20:16)
[2019-08-06 05:19] LABS: Estmated Average Glucose 123; Hemoglobin A1C 5.9 % (4.0-6.0)
[2019-08-06 05:51] LABS: Basophils % 0.2 %; Hematocrit 37.9 % (42.0-52.0); Hemoglobin 12.6 g/dL (11.7-16.6); Lymphocytes # 1.2 10^3/uL (0.8-4.8); Lymphocytes % 11.9 %; Mean Corpuscular HGB Conc 33.2 g/dL (30.0-36.0); Mean Corpuscular Hemoglobin 35.5 pg (28.0-34.0); Mean Corpuscular Volume 106.8 fL (80-94); Mean Platelet Volume 11.1 fL (7.4-10.4); Monocytes # 0.5 10^3/uL (0.2-0.9); Monocytes % 4.9 %; Neutrophils # 8.2 10^3/uL (1.8-7.7); Neutrophils % 80.9 %; Nucleated Red Blood Cells % 0 %; Platelet Count 258 10^3/cmm (130-400); Red Blood Count 3.55 10^6/uL (4.1-5.3); Red Cell Distribution Width 12.7 % (12.1-15.1); White Blood Count 10.1 10^3/uL (4.0-10.0)
[2019-08-06 06:17] LABS: Anion Gap 13.8 (5-19); Blood Urea Nitrogen 27 mg/dL (8-23); Calcium 8.6 mg/dL (8.5-10.5); Carbon Dioxide 30 mmol/L (22-29); Chloride 91 mmol/L (98-107); Glucose 167 mg/dL (65-115); Osmolality Calculated 271 mOsm/kg (285-295); Potassium 4.8 mmol/L (3.5-5.1); Sodium 130 mmol/L (136-145)
[2019-08-06] MEDS: FUROsemide 40 mg Tablet 60 MG PO (06:53)
--- NOTE | 2019-08-06 08:30 | PC.NURSE ---
CARDIZEM GTT TURNED DOWN TO 2.5MG/HR. HEART RATE IN 60-70.
[2019-08-06] MEDS: levoFLOXacin 750 mg Tablet PO (09:02)
[2019-08-06] MEDS: predniSONE 20 mg Tablet 40 MG PO (09:02)
[2019-08-06] MEDS: apixaban 5 mg Tablet PO ×2 (09:02→17:40)
[2019-08-06] MEDS: dilTIAZem ER (24HR) 240 mg Capsule PO (09:02)
[2019-08-06] MEDS: aspirin 81 mg EC Tablet PO (09:02)
[2019-08-06] MEDS: lisinopril 20 mg Tablet PO (09:03)
[2019-08-06] MEDS: metoprolol tartrate 50 mg Tablet PO ×2 (09:03→17:40)
[2019-08-06] MEDS: folic acid 1 mg Tablet PO (09:03)
--- NOTE | 2019-08-06 09:56 | PC.CHAP ---
Pastoral Care Encounter/Spiritual Assessment Type of Contact [] Declined quality control expert visit [] Patient/Family/Request visit [] Outpatient visit [] Follow-up visit [] Physician referral [] Code/Alert [x] Routine visit [] Staff referral [] Actively dying [] Patient sleeping [] Family support [] [] Out of room [] Palliative care [] [] Receiving care in room [] Pre-surgical visit [] Trauma [] Long length of stay [] ICU visit [] Other: Relational/Emotional Strength [] Patient feels connected with others/family/visitors/staff [] Distress [] Loneliness/isolation [] Abandonment Spirituality of Patient [] Person of Karen [] Attends Holiness of their Karen [x] Believes in Prayer [] Reads Bible or Anabaptism materials [] There are Spiritual issues to be addressed Financial Supervisor Interventions [x] Prayer [] Active listening [] Non-anxious presence [] Spiritual/emotional support [] Crisis/trauma care [] Spiritual counseling [] Bereavement support [] Provided bereavement packet [] Provided Bible/devotional materials [] Provided toy/stuffed animal, coloring book to patient or family member [] Provided Communion [] Anointing/[place] [] Salvation [x] Completed spiritual assessment [] Other: Impact on Illness or Injury [] Angry [] Fearful [] Anxious [] Often cries [] Exhaustion [] Unable to work [] Unable to attend samaritan [] Unable to walk/stand [] Unable to read [] Unable to drive [] Unable to eat/drink [] Unable to sleep [] Unable to be with family [] Patient intubated [] Other: Summary Patient didn't rest well last evening, because of room mate. Patient can't breath through his nose, so oxygen tube in placed in mouth. Time spent with patient 15 min
--- NOTE | 2019-08-06 10:30 | PC.NURSE ---
CARDIZEM GTT TURNED OFF AT THIS TIME.
[2019-08-06] MEDS: TRAMadol 50 mg Tablet PO ×2 (15:28→21:31)
--- NOTE | 2019-08-06 16:01 | P.PN_ITS ---
Subjective Subjective: Interval history: Patient awake sitting at the side of bed at time of exam today. He reported some continued shortness of breath, no further palpitations. Patient reported some discomfort from his hernia. Vitals/I&O/Wt Last Vital Signs Temp 98.6 F 08/06/19 15:33 Pulse 60 08/06/19 15:33 Resp 20 H 08/06/19 15:33 BP 125/66 08/06/19 15:33 Pulse Ox 96 08/06/19 15:33 08/06/19 08/06/19 08/06/19 06:59 14:59 22:59 Intake Total 600 / 1835.417 480 / 480 Output Total 600 / 600 Balance 600 / 1835.417 -120 / -120 Weight last 48 hrs Weight 83.915 kg Physical Exam Const: COMMON NORMALS: oriented x3 and alert GENERAL APPEARANCE: cooperative ORIENTATION/CONSCIOUSNESS: Yes awake, Yes oriented to person, Yes oriented to place and Yes oriented to time HENMT: COMMON NORMALS: normocephalic and head/scalp atraumatic HEAD & SCALP: normocephalic and atraumatic Eye: COMMON NORMALS: PERRL PUPIL: Yes PERRL Neck/C-Spine: COMMON NORMALS: supple GENERAL: Yes normal visual inspection Resp: COMMON NORMALS: normal respiratory effort EFFORT & INSPECTION: Yes able to speak in complete sentences AUSCULTATION: no rhonchi and no wheezes OTHER: Diminished breath sounds bilaterally, no appreciable wheezing or rhonchi Cardio: OTHER: Irregularly irregular, systolic murmur present GI: OTHER: Obese, soft, nontender, normal bowel sounds, patient does have a large periumbilical hernia, no acute erythema or tenderness to palpation : COMMON NORMALS: Yes no CVA tenderness BLADDER/KIDNEY EXAM: Yes no CVA tenderness Back/Pelvis: COMMON NORMALS: no CVA tenderness Extremity: COMMON NORMALS: no calf tenderness OTHER: Distal clubbing in the hands, 1+ pitting edema in the lower extremities bilaterally Neuro: COMMON NORMALS: oriented x3, CN's II-XII intact bilaterally, moves all extremities and no focal motor deficits SENSORIUM/ORIENTATION: Yes alert, Yes oriented to person, Yes oriented to place and Yes oriented to time SPEECH: speech normal Psych: COMMON NORMALS: mental status grossly normal Skin: COMMON NORMALS: no rashes or lesions noted GENERAL SKIN EXAM: no rashes or lesions noted Data : 08/06/19 05:07 08/06/19 05:07 A&P Assessment and plan (1) Atrial fibrillation with RVR: Improved Cardizem 240 mg daily and restart metoprolol 50 mg twice daily. Patient is also on Eliquis 5 mg twice daily, will continue Status: Acute (2) Periumbilical hernia: Patient has a large left of midline periumbilical hernia, has outpatient follow-up with Dr. Gomez. We will continue close monitoring, no concern for incarceration at this time. Status: Acute (3) Hepatitis: Hepatitis C Status: Acute (4) Hyperglycemia: A1c: 5.9 Status: Acute (5) Non-compliant behavior: Patient with noncompliance to medications He was discharged to home 3 days ago but did not picker and sorter load and unload any of his pr escriptions and has not taken any of his medications today and presented with same symptoms that he was previously treated for during his hospitalization. Status: Acute Additional A&P Information Moderate aortic stenosis Trace tricuspid regurgitation Moderate mitral valve regurgitation Diastolic congestive heart failure with acute exacerbation, secondary to medication noncompliance, give IV Lasix at this time and continue to monitor strict intake and output as well as daily weights, transition to inpatient Tobacco abuse THC abuse History of alcohol abuse COPD with recent exacerbation, recently prescribed Levaquin, will continue to complete patient's course DVT prophylaxis: Continue home Eliquis Diet: Cardiac CODE STATUS: Full code Attestations Medical Necessity Statement*: Patient requires continued hospitalization due to COPD and CHF exacerbation along with atrial fibrillation Coding Level of Care Code 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
[2019-08-06] MEDS: FUROsemide 10 mg/mL SDV 4mL 40 MG IVP (16:33)
[2019-08-06] MEDS: ipratropium-albuterol 3 mL Neb INHALATION (23:36)
[2019-08-07] VITALS (18 sets, daily range): BP systolic 134–153; BP diastolic 87–107; PULSE 48–102; RESP 16–25; TEMP 36.3–37.1; O2SAT 92–100
[2019-08-07] MEDS: TRAMadol 50 mg Tablet PO ×5 (01:18→23:33)
[2019-08-07] MEDS: ipratropium-albuterol 3 mL Neb INHALATION ×5 (04:06→20:42)
[2019-08-07] MEDS: FUROsemide 40 mg Tablet 60 MG PO (06:03)
[2019-08-07 06:04] LABS: Basophils % 0.1 %; Eosinophils % 0.1 %; Hematocrit 33.7 % (42.0-52.0); Hemoglobin 11.3 g/dL (11.7-16.6); Lymphocytes % 11.4 %; Mean Corpuscular HGB Conc 33.5 g/dL (30.0-36.0); Mean Corpuscular Hemoglobin 36.9 pg (28.0-34.0); Mean Corpuscular Volume 110.1 fL (80-94); Mean Platelet Volume 11.1 fL (7.4-10.4); Monocytes # 1.5 10^3/uL (0.2-0.9); Monocytes % 8.4 %; Neutrophils % 78.4 %; Nucleated Red Blood Cells % 0 %; Platelet Count 249 10^3/cmm (130-400); Red Blood Count 3.06 10^6/uL (4.1-5.3); Red Cell Distribution Width 12.8 % (12.1-15.1); White Blood Count 17.9 10^3/uL (4.0-10.0)
[2019-08-07 06:28] LABS: Anion Gap 11.6 (5-19); Blood Urea Nitrogen 32 mg/dL (8-23); Calcium 8.5 mg/dL (8.5-10.5); Carbon Dioxide 31 mmol/L (22-29); Chloride 93 mmol/L (98-107); Glucose 177 mg/dL (65-115); Osmolality Calculated 274 mOsm/kg (285-295); Potassium 4.6 mmol/L (3.5-5.1); Sodium 131 mmol/L (136-145)
[2019-08-07] MEDS: polyethylene glycol 3350 Pkt 17 gm PO (08:26)
[2019-08-07] MEDS: predniSONE 20 mg Tablet 40 MG PO (08:26)
[2019-08-07] MEDS: metoprolol tartrate 50 mg Tablet PO ×2 (08:27→17:40)
[2019-08-07] MEDS: dilTIAZem ER (24HR) 240 mg Capsule PO (08:27)
[2019-08-07] MEDS: folic acid 1 mg Tablet PO (08:27)
[2019-08-07] MEDS: aspirin 81 mg EC Tablet PO (08:27)
[2019-08-07] MEDS: apixaban 5 mg Tablet PO ×2 (08:27→17:40)
[2019-08-07] MEDS: levoFLOXacin 750 mg Tablet PO (08:27)
[2019-08-07] MEDS: lisinopril 20 mg Tablet PO (08:27)
[2019-08-07] MEDS: HYDROcodone-acetaminophen 5-325 mg Tablet 1 TAB PO ×2 (10:02→19:48)
--- NOTE | 2019-08-07 12:54 | PC.RESP ---
Pulmonary Rehab and Smoking Cessation discussed with patient and information left along with a schedule of classes.
--- NOTE | 2019-08-07 14:53 | PM.PN ---
Subjective Subjective: Interval history: Morning patient was seen while he was getting his nebulizer treatment, states that he is not doing well this morning, still feels short of breath, still states that his knees hurt him, his abdominal wall hernia hurts him, states that he is not ready to go home, feels that he needs another day in the hospital Vitals/I&O/Wt Last Vital Signs Temp 98.0 F 08/07/19 10:48 Pulse 72 08/07/19 12:33 Resp 16 08/07/19 12:33 BP 134/89 08/07/19 10:48 Pulse Ox 92 08/07/19 12:33 08/06/19 08/07/19 08/07/19 22:59 06:59 14:59 Intake Total 740 / 1345 360 / 1705 Output Total 1050 / 1650 750 / 2400 350 / 350 Balance -310 / -305 -390 / -695 -350 / -350 Physical Exam Const: COMMON NORMALS: no apparent distress and oriented x3 HENMT: COMMON NORMALS: normocephalic HEAD & SCALP: normocephalic Neck/C-Spine: COMMON NORMALS: no JVD Resp: COMMON NORMALS: normal respiratory effort, no retractions, no use of accessory muscles and clear to auscultation bilaterally AUSCULTATION: clear to auscultation bilaterally Cardio: COMMON NORMALS: no JVD, regular rate, regular rhythm, S1 normal heart sound and S2 normal heart sound RATE: regular rate RHYTHM: regular rhythm HEART SOUNDS: S1 normal and S2 normal GI: COMMON NORMALS: normal to inspection, nondistended, normoactive bowel sounds, soft to palpation, non-tender and no bruits PALPATION: Yes soft OTHER: Abdominal wall hernia Extremity: COMMON NORMALS: normal capillary refill, no clubbing, cyanosis or edema, no calf tenderness and no pedal edema Neuro: COMMON NORMALS: oriented x3 Psych: COMMON NORMALS: mental status grossly normal Data : 08/07/19 05:00 08/07/19 05:00 A&P Assessment and plan (1) Atrial fibrillation with RVR: Continue Cardizem 240 mg daily and metoprolol 50 mg twice daily. Patient is also on Eliquis 5 mg twice daily, will continue Status: Acute (2) Periumbilical hernia: Patient has a large left of midline periumbilical hernia, has outpatient follow-up with Dr. Gomez. We will continue close monitoring, no concern for incarceration at this time. 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 Status: Acute Additional A&P Information Moderate aortic stenosis Trace tricuspid regurgitation Moderate mitral valve regurgitation Diastolic congestive heart failure with acute exacerbation, secondary to medication noncompliance, continue Lasix 60 mg p.o. daily Tobacco abuse THC abuse History of alcohol abuse COPD with recent exacerbation, recently prescribed Levaquin, will continue to complete patient's course continue nebulizer treatments, continue prednisone 60 mg p.o. daily DVT prophylaxis: Continue home Eliquis Diet: Cardiac CODE STATUS: Full code Attestations Medical Necessity Statement*: During hospitalization due to diastolic heart failure exacerbation, A. 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
--- NOTE | 2019-08-07 21:26 | PC.NURSE ---
Patient is resting with eyes closed.
[2019-08-08] VITALS (13 sets, daily range): BP systolic 132–152; BP diastolic 66–105; PULSE 84–105; RESP 16–22; TEMP 36.4–37.1; O2SAT 83–100
[2019-08-08] MEDS: ipratropium-albuterol 3 mL Neb INHALATION ×4 (00:13→13:10)
[2019-08-08] MEDS: FUROsemide 40 mg Tablet 60 MG PO (03:55)
[2019-08-08] MEDS: HYDROcodone-acetaminophen 5-325 mg Tablet 1 TAB PO ×2 (03:56→13:09)
[2019-08-08] MEDS: TRAMadol 50 mg Tablet PO (05:25)
--- NOTE | 2019-08-08 05:49 | PC.NURSE ---
Dr. Rojas notified of patient asking for a nicotine patch. Patient states he smokes one pack per day.
[2019-08-08 06:04] LABS: Basophils # 0.1 10^3/uL (0.0-0.1); Basophils % 0.3 %; Eosinophils # 0.1 10^3/uL (0.0-0.8); Eosinophils % 0.2 %; Hematocrit 37.6 % (42.0-52.0); Hemoglobin 12.5 g/dL (11.7-16.6); Lymphocytes # 2.7 10^3/uL (0.8-4.8); Lymphocytes % 12.7 %; Mean Corpuscular HGB Conc 33.2 g/dL (30.0-36.0); Mean Corpuscular Hemoglobin 34.9 pg (28.0-34.0); Mean Platelet Volume 11.2 fL (7.4-10.4); Monocytes # 2.1 10^3/uL (0.2-0.9); Monocytes % 9.8 %; Neutrophils # 15.4 10^3/uL (1.8-7.7); Neutrophils % 72.9 %; Nucleated Red Blood Cells % 0 %; Platelet Count 283 10^3/cmm (130-400); Red Blood Count 3.58 10^6/uL (4.1-5.3); Red Cell Distribution Width 12.7 % (12.1-15.1); White Blood Count 21.1 10^3/uL (4.0-10.0)
[2019-08-08] MEDS: nicotine 21 mg Patch 1 PATCH TRANSDERMA (06:14)
[2019-08-08 06:16] LABS: Chloride 91 mmol/L (98-107); Potassium 4.6 mmol/L (3.5-5.1); Sodium 131 mmol/L (136-145)
[2019-08-08 06:41] LABS: Alanine Aminotransferase 80 U/L (0-41); Albumin Level 3.2 g/dL (3.5-5.2); Alkaline Phosphatase 157 IU/L (40-130); Anion Gap 13.6 (5-19); Aspartate Amino Transferase 69 U/L (0-40); Blood Urea Nitrogen 30 mg/dL (8-23); Carbon Dioxide 31 mmol/L (22-29); Globulin 4.4 g/dL (1.3-4.6); Glucose 110 mg/dL (65-115); Osmolality Calculated 270 mOsm/kg (285-295); Phosphorus 2.8 mg/dL (2.5-4.5); Total Bilirubin 0.5 mg/dL (0.15-1.2); Total Protein 7.6 g/dL (6.6-8.7)
--- NOTE | 2019-08-08 08:38 | XR_ITS ---
WS: [id number] XR chest 1V portable [id number] REASON FOR EXAM: shortness of breath FINDINGS: The lung quintana are well aerated. No pneumonia, pleural effusion, pulmonary edema, or mass effect. The hilum and apices normal. The mediastinum and heart were normal. No interval changes since August 05, 2019 XR/XR chest 1V portable [id number] IMPRESSION: Negative chest for active pathology.
[2019-08-08] MEDS: lisinopril 20 mg Tablet PO (09:22)
[2019-08-08] MEDS: predniSONE 20 mg Tablet 40 MG PO (09:22)
[2019-08-08] MEDS: metoprolol tartrate 50 mg Tablet 75 MG PO (09:23)
[2019-08-08] MEDS: apixaban 5 mg Tablet PO (09:25)
[2019-08-08] MEDS: folic acid 1 mg Tablet PO (09:25)
[2019-08-08] MEDS: levoFLOXacin 750 mg Tablet PO (09:26)
[2019-08-08] MEDS: aspirin 81 mg EC Tablet PO (09:27)
[2019-08-08] MEDS: dilTIAZem ER (24HR) 240 mg Capsule PO (09:27)
--- NOTE | 2019-08-08 12:12 | PM.DCS ---
Discharge Providers Date of Admission: 08/06/19 19:47 Date of Discharge: August 08, 2019 Attending Provider at Admission: Naina Max DO Attending Provider at Discharge: Kristofer Powers MD Diagnoses at Discharge Discharge Diagnosis (1) Atrial fibrillation with RVR: Status: Acute (2) Periumbilical hernia: Status: Acute (3) Hepatitis: Status: Acute (4) Hyperglycemia: Status: Acute (5) Non-compliant behavior: Status: Acute Reason for Visit Reason for Visit: Reason For Visit: SOB, AFIB, ABD PAIN Hospital Course Discharge Summary: This is a 76-year-old male with a past medical history of noncompliance with medications, atrial fibrillation on anticoagulation with Eliquis, COPD oxygen dependent (patient states that he uses 5 L oxygen but tends to suck on oxygen and not wear it in his nasal sinus), chronic smoker, CAD, GERD, hypertension, history of abdominal wall hernia, history of inguinal hernia, hepatitis C who presents to the emergency room due to complaints of shortness of breath, patient stated he had not picked up his medication since his hospital discharge 2 days ago. Patient was admitted for acute hypoxic respiratory failure secondary to A. fib with RVR, COPD, and diastolic heart failure. Patient during his admission clinically did well, was ambulating without significant symptomatology, although during his admission patient was noncompliant with oxygen therapy, was either sucking on the oxygen or wearing on it on his head. Patient was discharged home with meds to bed, home health care, close follow-up with cardiology as outpatient, close follow-up with his primary care physician as outpatient. For his atrial fibrillation with rapid ventricular response, patient was initially placed on a Cardizem drip, was transitioned to Cardizem 40 mg p.o. daily, with metoprolol 75 mg twice daily. Patient remained in A. fib throughout his admission, heart rates between 100-110, patient is to follow-up with cardiology as outpatient for consideration of cardioversion. In addition patient was discharged on Eliquis 5 mg twice daily. For his diastolic heart failure patient was diuresed approximately 6 L during his admission, was discharged on Lasix 60 mg daily, fluid restriction less than 1500 cc/day, daily weights, and follow-up with his regular physician for blood work in a week. For patient's COPD exacerbation, patient was discharged on the remaining days of Levaquin, and a steroid taper. On discharge patient's white blood cell count was 21,000, neutrophilic 15.4, chest x-ray was negative for infectious course, afebrile, leukocytosis was most likely secondary to steroid therapy. Patient was also found to be hyperglycemic during admission, hemoglobin A1c was 5.9, patient was advised to diet and exercise. For his hepatitis C, patient was advised to follow-up with his primary care provider for treatment for hepatitis C For patient's periumbilical hernia, patient is to follow-up with Dr. Gomez as outpatient. For his inguinal hernia patient is to follow with Dr. Gomez as outpatient. For his noncompliant behavior, patient was advised of compliance with medical interventions, compliance with medications, risks of significant morbidity and mortality of noncompliance were discussed, patient voiced understanding, all questions answered. Physical Exam Const: COMMON NORMALS: no apparent distress and oriented x3 HENMT: COMMON NORMALS: normocephalic HEAD & SCALP: normocephalic Neck/C-Spine: COMMON NORMALS: no JVD Resp: COMMON NORMALS: normal respiratory effort, no retractions, no use of accessory muscles and clear to auscultation bilaterally AUSCULTATION: clear to auscultation bilaterally Cardio: COMMON NORMALS: no JVD, S1 normal heart sound and S2 normal heart sound RHYTHM: abnormal rhythm HEART SOUNDS: S1 normal and S2 normal GI: COMMON NORMALS: normal to inspection, nondistended, normoactive bowel sounds, soft to palpation, non-tender, no hepatosplenomegaly, no masses and no bruits PALPATION: Yes soft and Yes no hepatosplenomegaly Extremity: COMMON NORMALS: normal capillary refill, no clubbing, cyanosis or edema, no calf tenderness and no pedal edema Neuro: COMMON NORMALS: oriented x3 Psych: COMMON NORMALS: mental status grossly normal Discharge Data Data Completed and Pending: Completed Studies During Hospitalization Category Date Time Status CT angio chest w abd pel w con Stat Cat Scan 08/05/19 11:43 Completed XR chest 1V negr[place] ble [id number] Stat Exams 08/05/19 11:08 Completed XR chest 1V negr[place] ble [id number] Stat Exams 08/08/19 08:38 Completed Pending at discharge Category Date Time Status Complete Blood Co unt w/Auto AM LABS Lab 08/09/19 04:00 Ordered Complete Blood Co unt w/Auto AM LABS Lab 08/10/19 04:00 Ordered Comprehensive Met abolic Panel AM LA BS Lab 08/09/19 04:00 Ordered Comprehensive Met abolic Panel AM LA BS Lab 08/10/19 04:00 Ordered Magnesium AM LABS Lab 08/09/19 04:00 Ordered Magnesium AM LABS Lab 08/10/19 04:00 Ordered Phosphorus AM LAB S Lab 08/09/19 04:00 Ordered Phosphorus AM LAB S Lab 08/10/19 04:00 Ordered Labs from last 24 hours 08/08/19 08/08/19 05:15 05:15 WBC 21.1 H RBC 3.58 L Hgb 12.5 Hct 37.6 L MCV 105.0 H MCH 34.9 H MCHC 33.2 RDW 12.7 Plt Count 283 MPV 11.2 H Neut % (Auto) 72.9 Lymph % (Auto) 12.7 [place] % (Auto) 9.8 Eos % (Auto) 0.2 Baso % (Auto) 0.3 Neut # (Auto) 15.4 H Lymph # (Auto) 2.7 [place] # (Auto) 2.1 H Eos # (Auto) 0.1 Baso # (Auto) 0.1 Nucleated RBC % (a uto) 0 Nucleated RBCs # 0.0 Sodium 131 L Potassium 4.6 Chloride 91 L Carbon Dioxide 31 H Anion Gap 13.6 BUN 30 H Creatinine 0.8 Glucose 110 Calculated Osmolal ity 270 L Calcium 9.0 Phosphorus 2.8 Magnesium 2.0 Total Bilirubin 0.5 AST 69 H ALT 80 H Alkaline Phosphata se 157 H Total Protein 7.6 Albumin 3.2 L Globulin 4.4 Vitals: Last Vital Signs Temp 98.7 F 08/08/19 10:52 Pulse 84 08/08/19 10:52 Resp 20 H 08/08/19 10:52 BP 132/66 08/08/19 10:52 Pulse Ox 93 08/08/19 10:52 Discharge Plan Discharge Patient Disposition: Home, Self-Care Condition: Stable Prescriptions: New metoprolol tartrate 50 mg Tablet 75 mg PO BID 30 Days Qty: 90 RF: 0 hydrocodone-acetaminophen 5-325 mg Tablet 1 tab PO Q8H PRN (Reason: Moderate Pain) 15 Days Qty: 30 RF: 0 nicotine 21 mg/24 hr Patch 24 Hour 1 patch transdermal DAILY 30 Days Qty: 30 RF: 0 Advair Diskus 100-50 mcg/dose blister with device 1 inh INHALATION DAILY Qty: 60 RF: 0 Lasix 40 mg tablet 60 mg PO DAILY 30 Days Qty: 45 RF: 0 prednisone 10 mg tablet 10 mg PO DAILY 25 Days Qty: 53 RF: 0 Continued diltiazem HCl 240 mg Capsule,Extended Release 24hr 240 mg PO DAILY 30 Days Qty: 30 RF: 0 lisinopril 20 mg Tablet 20 mg PO DAILY 30 Days Qty: 30 RF: 0 Aspir-81 81 mg Tablet,Delayed Release (Dr/Ec) 81 mg PO DAILY 30 Days Qty: 30 RF: 0 Nitrostat 0.4 mg Tablet, Sublingual 0.4 mg SUBLINGUAL Q5M PRN (Reason: Chest Pain) 3 Days Qty: 3 RF: 0 folic acid 1 mg Tablet 1 mg PO DAILY 30 Days Qty: 30 RF: 0 Miralax 17 gram/dose powder 17 gm PO DAILY 30 Days Qty: 510 RF: 0 Levaquin 750 mg tablet 750 mg PO DAILY 3 Days Qty: 3 RF: 0 Eliquis 5 mg Tablet 5 mg PO BID 30 Days Qty: 60 RF: 0 potassium chloride 20 mEq Tablet Extended Release 40 meq PO DAILY 30 Days Qty: 60 RF: 0 albuterol sulfate 0.63 mg/3 mL solution for nebulization 0.63 mg INHALATION Q4H PRN (Reason: shortness of breath or wheezing) 30 Days Qty: 180 RF: 0 Spiriva Respimat 1.25 mcg/actuation mist 2 puff inhalation DAILY 30 Days Qty: 4 RF: 0 Changed ProAir HFA 90 mcg/actuation Hfa Aerosol Inhaler See Rx Instructions .ROUTE .COMPLEX 30 Days Qty: 8.5 RF: 0 Discontinued prednisone 20 mg Tablet See Rx Instructions .ROUTE .COMPLEX Qty: 21 RF: 0 metoprolol tartrate 50 mg Tablet 50 mg PO BID Qty: 60 RF: 0 diltiazem HCl 120 mg capsule,extended release 24hr 120 mg PO DAILY RF: 0 furosemide [Lasix] 40 mg tablet 60 mg PO QAM Qty: 45 RF: 0 Discharge Orders: Discharge Order (Routine); Ordered 08/08/19 Ordered By: Kristofer Powers Other Ambulatory Orders: Complete Blood Count w/Auto (Routine) Timeframe: 1 Week Location: Determined by Patient Ordered By: Kristofer Powers Comprehensive Metabolic Panel (Routine) Timeframe: 1 Week Facility: [facility] - Location: Lab - Main Lab Ordered By: Kristofer Powers Referrals: Michael Broussard MD [Physician] - 1 week Jon Lange MD [Family Provider] - 1 week Discharge Diet: Cardiac Discharge Activity: Resume usual activity Patient Instructions: Congestive Heart Failure, Hepatitis C, Atrial Fibrillation (DC), Cirrhosis (DC) Activity Restrictions/Additional Instructions: -Please take medications as prescribed -Please follow-up with cardiology in 1 week -Please follow-up with your family physician in 1 week -If you have worsening shortness of breath please come back to the emergency room Discharge Attestations Time Spent in Discharge Care*: less than 30 min Quality Metrics Clinical Quality Measures During this hospital stay, did patient experience: None Coding Level of Care Code Acute Refueling Rampman for Chg Fwd Diagnoses Atrial fibrillation with RVR I48.91 Periumbilical hernia K42.9 Hepatitis K75.9 Hyperglycemia R73.9 Non-compliant behavior R46.89
--- NOTE | 2019-08-11 12:12 | PC.SOCIAL ---
Called patient and he was in the background asked male on phone to take message. Notified person answering that ride was scheduled for transport on 08/13 to take [facility] they will arrive at 10:15am. Trip [place] per [facility] [place] [id number]. Male verbalized understanding.
== END 2019-08-08 17:50 | disposition home or self-care (01) | DRG 308 ==
LOC: ER 12:02 → MEDSURG 15:57
PROVIDERS: Admitting Provider Family Medicine; Emergency Provider Family Medicine; Family Provider Family Medicine; Visit Provider Family Medicine
DX: I48.91 Unspecified atrial fibrillation (principal); J96.01 Acute respiratory failure with hypoxia; I50.31 Acute diastolic (congestive) heart failure; J44.1 Chronic obstructive pulmonary disease with (acute) exacerbation; Z99.81 Dependence on supplemental oxygen; I25.10 Atherosclerotic heart disease of native coronary artery without angina pectoris; K21.9 Gastro-esophageal reflux disease without esophagitis; I11.0 Hypertensive heart disease with heart failure; G47.00 Insomnia, unspecified; Z91.14 Patient's other noncompliance with medication regimen; F17.210 Nicotine dependence, cigarettes, uncomplicated; F10.21 Alcohol dependence, in remission; F12.10 Cannabis abuse, uncomplicated; K42.9 Umbilical hernia without obstruction or gangrene; K40.90 Unilateral inguinal hernia, without obstruction or gangrene, not specified as recurrent; B19.20 Unspecified viral hepatitis C without hepatic coma; R73.9 Hyperglycemia, unspecified; I08.3 Combined rheumatic disorders of mitral, aortic and tricuspid valves; Z79.82 Long term (current) use of aspirin; Z79.01 Long term (current) use of anticoagulants; Z79.51 Long term (current) use of inhaled steroids
CPT/HCPCS: 12345; 36415; 71045; 71275; 74177; 80048; 80053; 83036; 83690; 83735; 83880; 84100; 84484; 85025; 85378; 93005; 94640; 96375; 99283; G0378; J1170; J1940; J2270; J3490; J3535; J7512; Q9967

== ENCOUNTER 2019-08-11 23:44 | Emergency (ER) | payer MEDICARE, MEDICAID, SELFPAY ==
[2019-08-11 23:46] VITALS: BP 167/122; PULSE 101; RESP 20; TEMP 36.4; O2SAT 100; BMI 26.6
--- NOTE | 2019-08-11 23:50 | XR_ITS ---
WS: [id number] PORTABLE CHEST HISTORY: sob COMPARISON: 08/08/2019 Marked pulmonary hyperinflation with emphysema and prior granulomatous disease. Nodules in the RIGHT lung have been previously described and stable since 07/05/2016. No pleural effusion or pneumothorax. Cardiac size: Normal. Mediastinum/Aorta: Mild atherosclerosis aorta. No osseous abnormality seen. XR/XR chest 1V portable [id number] IMPRESSION: 1. Chronic emphysema with no pneumonia. 2. Mild ectasia aorta. 3. Nodule RIGHT lower lobe. Previously described but appears slightly increase d in size. Recommend 6 month follow-up chest CT to evaluate for continued stabi lity.
--- NOTE | 2019-08-11 23:50 | ECG_ITS ---
Measurements Intervals [place] Rate: 115 P: DE: 0 QRS: 45 QRSD: 87 T: 17 QT: 289 QTc: 400 ATRIAL FIBRILLATION WITH RAPID VENTRICULAR RESPONSE ABNORMAL RHYTHM ECG INTERPRETATION BASED ON A DEFAULT AGE OF 40 YEARS Compared to ECG 08/05/2019 23:57:09 No significant changes Electronically Signed On 08-12-2019 19:44:52 CDT by Michael Broussard M.D. [email or web address]
--- NOTE | 2019-08-11 23:51 | ED_ITS ---
HPI - SOB/Dyspnea General: Chief Complaint: Shortness of Breath/Dyspnea Stated Complaint: RESP DISTRESS Time Seen by Provider: 08/11/19 23:50 Source: patient and EMS Mode of arrival: EMS Limitations: no limitations History of Present Illness: HPI Narrative: 74-year-old male with a long history of COPD and congestive heart failure. Patient's had increasing shortness of breath especially with exertion. He also has swelling in his legs. He has been noncompliant on his Lasix. Patient here is in quite a bit of distress and able to talk in 2-4 word sentences. He denies any chest pain or fever. MD elicited complaint: shortness of breath Pertinent past history: COPD and congestive heart failure Timing: constant Severity: severe Exacerbating factors: lying flat and exertion Relieving factors: oxygen and rest Known history of: COPD and congestive heart failure Associated symptoms: Deny abdominal pain, chest pain, fever(s), nausea or vomiting Review of Systems Const: Denies: fever, chills, body aches or change in appetite Eyes: Denies: blurry vision or eye discomfort ENMT: Denies: throat pain or dental pain Card: Denies: chest pain Resp: Reports: shortness of breath GI: Denies: abdominal pain, nausea, vomiting or diarrhea : Denies: painful urination Musc: Denies: neck pain or back pain Skin/Breast: Denies: rash Neuro: Denies: headache Psych: Denies: depression Juan C/Lymph: Denies: easy bruising All/Imm: Denies: hives PFSH ED PFSH: Medical History A-fib Back pain COPD (chronic obstructive pulmonary disease) Coronary artery disease GERD (gastroesophageal reflux disease) Hypertension Incisional hernia Insomnia Non-compliant behavior Surgical History H/O exploratory laparotomy H/O laminectomy History of carpal tunnel surgery History of cholecystectomy S/P laparoscopic appendectomy Family History Father Cancer Other Hypertension Social History Smoking and tobacco status: current every day smoker cigarettes Packs smoked per day: 0.5 Alcohol intake: former Year of sobriety/quit date alcohol: 6 years ago Former alcohol use details: Heavy alcohol use Lives independently: Yes Household members: family and children Housing: House Physical Exam Const: COMMON NORMALS: oriented x3 GENERAL APPEARANCE: in distress and ill appearing HENMT: COMMON NORMALS: normocephalic and head/scalp atraumatic HEAD & SCALP: normocephalic and atraumatic Eye: COMMON NORMALS: PERRL and EOMs intact bilaterally PUPIL: Yes PERRL Neck/C-Spine: COMMON NORMALS: full ROM and supple Chest: COMMONS NORMALS: inspection of chest normal and palpation of chest normal Resp: COMMON NORMALS: no retractions EFFORT & INSPECTION: Yes tachypneic and Yes respiratory distress AUSCULTATION: rales Cardio: COMMON NORMALS: regular rate, regular rhythm and no murmurs RATE: regular rate RHYTHM: regular rhythm GI: COMMON NORMALS: normal to inspection, nondistended, normoactive bowel sounds, soft to palpation, non-tender and no masses PALPATION: Yes soft Extremity: COMMON NORMALS: normal to inspection and full ROM OTHER: 2+ edema Neuro: COMMON NORMALS: oriented x3, moves all extremities and no focal motor deficits Psych: COMMON NORMALS: mental status grossly normal, thought process normal and cooperative THOUGHT PROCESS: normal thought process Skin: COMMON NORMALS: no rashes or lesions noted and no wounds GENERAL SKIN EXAM: no rashes or lesions noted Course Vital Signs: Vital signs: Vital Signs Temperature 97.6 F 08/11/19 23:46 Pulse Rate 66 08/12/19 01:31 Respiratory Rate 20 H 08/12/19 01:45 Blood Pressure 128/92 08/12/19 01:31 Pulse Oximetry 96 08/12/19 01:31 MDM - SOB/Dyspnea MDM Narrative: Medical decision making narrative: Patient presents here with congestive heart failure exacerbation. Patient is requiring 8 L of oxygen here and is retained fluid and has an elevated BNP. Patient given IV Lasix here. Patient does not require BiPAP. Patient's A. fib is improved here after IV Cardizem. I spoke to physician at [facility] emergency room and transfer there for bed availability. We have no ICU beds here at this time. Lab Data: Labs: Lab Results 08/11/19 08/12/19 08/12/19 Range/Units 00:00 00:01 00:01 WBC 19.2 H (4.0-10.0) 10^3/ uL RBC 3.36 L (4.1-5.3) 10^6/u L Hgb 11.9 (11.7-16.6) g/dL Hct 36.3 L (42.0-52.0) % MCV 108.0 H (80-94) fL MCH 35.4 H (28.0-34.0) pg MCHC 32.8 (30.0-36.0) g/dL RDW 13.2 (12.1-15.1) % Plt Count 173 (130-400) 10^3/c mm MPV 11.9 H (7.4-10.4) fL Neut % (Auto) 79.7 % Lymph % (Auto) 8.4 % Randall % (Auto) 7.6 % Eos % (Auto) 0.0 % Baso % (Auto) 0.2 % Neut # (Auto) 15.3 H (1.8-7.7) 10^3/u L Lymph # (Auto) 1.6 (0.8-4.8) 10^3/u L Randall # (Auto) 1.5 H (0.2-0.9) 10^3/u L Eos # (Auto) 0.0 (0.0-0.8) 10^3/u L Baso # (Auto) 0.0 (0.0-0.1) 10^3/u L Nucleated RBC % (a uto) 0 % Nucleated RBCs # 0.0 /100WBC PT 13.20 (10.5-13.3) SECO NDS INR 0.97 (0.8-1.2) Specimen Type Arterial Sample Site Radial, right ABG pH 7.40 (7.35-7.45) ABG pCO2 53.7 H (35-45) mmHg ABG pO2 320.0 H* (80.0-100.0) mmH g ABG HCO3 33.6 H (22-26) mmol/L ABG Base Excess 7.3 H (-2.0-2.0) mmol/ L Yannick Test Pos Hematocrit 38.0 L (42-52) % Hgb O2 Saturation 98.5 (95-100) % Carboxyhemoglobin 0.5 (0.4-20.1) %THgb Methemoglobin 1.1 (0.4-1.5) % Total Hemoglobin 12.4 L (14-18) g/dL O2 Delivery Device Nrb Managing Broker ID [email or web address] Sodium (136-145) mmol/L Potassium (3.5-5.1) mmol/L Chloride (98-107) mmol/L Carbon Dioxide (22-29) mmol/L Anion Gap (5-19) BUN (8-23) mg/dL Creatinine (0.7-1.2) mg/dL Glucose (65-115) mg/dL Calculated Osmolal ity (285-295) mOsm/k g Calcium (8.5-10.5) mg/dL Total Bilirubin (0.15-1.2) mg/dL AST (0-40) U/L ALT (0-41) U/L Alkaline Phosphata se (40-130) IU/L Troponin T Baselin e (0-15) ng/mL NT-Pro-B Natriuret Pep (0-125) pg/mL Total Protein (6.6-8.7) g/dL Albumin (3.5-5.2) g/dL Globulin (1.3-4.6) g/dL 08/12/19 08/12/19 Range/Units 00:01 00:01 WBC (4.0-10.0) 10^3/ uL RBC (4.1-5.3) 10^6/u L Hgb (11.7-16.6) g/dL Hct (42.0-52.0) % MCV (80-94) fL MCH (28.0-34.0) pg MCHC (30.0-36.0) g/dL RDW (12.1-15.1) % Plt Count (130-400) 10^3/c mm MPV (7.4-10.4) fL Neut % (Auto) % Lymph % (Auto) % Randall % (Auto) % Eos % (Auto) % Baso % (Auto) % Neut # (Auto) (1.8-7.7) 10^3/u L Lymph # (Auto) (0.8-4.8) 10^3/u L Randall # (Auto) (0.2-0.9) 10^3/u L Eos # (Auto) (0.0-0.8) 10^3/u L Baso # (Auto) (0.0-0.1) 10^3/u L Nucleated RBC % (a uto) % Nucleated RBCs # /100WBC PT (10.5-13.3) SECO NDS INR (0.8-1.2) Specimen Type Sample Site ABG pH (7.35-7.45) ABG pCO2 (35-45) mmHg ABG pO2 (80.0-100.0) mmH g ABG HCO3 (22-26) mmol/L ABG Base Excess (-2.0-2.0) mmol/ L Yannick Test Hematocrit (42-52) % Hgb O2 Saturation (95-100) % Carboxyhemoglobin (0.4-20.1) %THgb Methemoglobin (0.4-1.5) % Total Hemoglobin (14-18) g/dL O2 Delivery Device Managing Broker ID Sodium 132 L (136-145) mmol/L Potassium 5.2 H (3.5-5.1) mmol/L Chloride 92 L (98-107) mmol/L Carbon Dioxide 29 (22-29) mmol/L Anion Gap 16.2 (5-19) BUN 41 H (8-23) mg/dL Creatinine 1.0 (0.7-1.2) mg/dL Glucose 378 H (65-115) mg/dL Calculated Osmolal ity 287 (285-295) mOsm/k g Calcium 8.7 (8.5-10.5) mg/dL Total Bilirubin 0.5 (0.15-1.2) mg/dL AST 64 H (0-40) U/L ALT 76 H (0-41) U/L Alkaline Phosphata se 135 H (40-130) IU/L Troponin T Baselin e 20 H (0-15) ng/mL NT-Pro-B Natriuret Pep 7973 H (0-125) pg/mL Total Protein 6.4 L (6.6-8.7) g/dL Albumin 3.1 L (3.5-5.2) g/dL Globulin 3.3 (1.3-4.6) g/dL Imaging Data^: CXR: Attestation: I personally reviewed and interpreted this imaging study as follows: My impression: cardiomegaly with no pulmonary edema EKG Data^: EKG 1: Attestation: I personally reviewed and interpreted this EKG as follows: EKG Interpretation Date: 08/12/19 EKG interpretation time: 00:08 Interpretation: afib with rvr hr [address] or t wave abnormalities qrs 87 qtc 357 Discharge Plan Discharge Clinical Impression: A-fib Qualifiers: Atrial fibrillation type: unspecified Qualified Code(s): I48.91 - Unspecified atrial fibrillation Congestive heart failure Qualifiers: Heart failure type: systolic Heart failure chronicity: acute Qualified Code(s): I50.21 - Acute systolic (congestive) heart failure Condition: Stable Prescriptions: No Action metoprolol tartrate 50 mg Tablet 75 mg PO BID 30 Days Qty: 90 RF: 0 hydrocodone-acetaminophen 5-325 mg Tablet 1 tab PO Q8H PRN (Reason: Moderate Pain) 15 Days Qty: 30 RF: 0 nicotine 21 mg/24 hr Patch 24 Hour 1 patch transdermal DAILY 30 Days Qty: 30 RF: 0 Advair Diskus 100-50 mcg/dose blister with device 1 inh INHALATION DAILY Qty: 60 RF: 0 albuterol sulfate 0.63 mg/3 mL solution for nebulization 0.63 mg INHALATION Q4H PRN (Reason: shortness of breath or wheezing) 30 Days Qty: 180 RF: 0 diltiazem HCl 240 mg Capsule,Extended Release 24hr 240 mg PO DAILY 30 Days Qty: 30 RF: 0 lisinopril 20 mg Tablet 20 mg PO DAILY 30 Days Qty: 30 RF: 0 Aspir-81 81 mg Tablet,Delayed Release (Dr/Ec) 81 mg PO DAILY 30 Days Qty: 30 RF: 0 Nitrostat 0.4 mg Tablet, Sublingual 0.4 mg SUBLINGUAL Q5M PRN (Reason: Chest Pain) 3 Days Qty: 3 RF: 0 folic acid 1 mg Tablet 1 mg PO DAILY 30 Days Qty: 30 RF: 0 Miralax 17 gram/dose powder 17 gm PO DAILY 30 Days Qty: 510 RF: 0 ProAir HFA 90 mcg/actuation Hfa Aerosol Inhaler See Rx Instructions .ROUTE .COMPLEX 30 Days Qty: 8.5 RF: 0 Eliquis 5 mg Tablet 5 mg PO BID 30 Days Qty: 60 RF: 0 potassium chloride 20 mEq Tablet Extended Release 40 meq PO DAILY 30 Days Qty: 60 RF: 0 Spiriva Respimat 1.25 mcg/actuation mist 2 puff inhalation DAILY 30 Days Qty: 4 RF: 0 Lasix 40 mg tablet 60 mg PO DAILY 30 Days Qty: 45 RF: 0 prednisone 10 mg tablet 10 mg PO DAILY 25 Days Qty: 53 RF: 0 Coding Level of Care Code ED Nuclear Security Officer for Gretel Fwd Exam Comprehensive
[2019-08-12] MEDS: ipratropium-albuterol 3 mL Neb INHALATION
[2019-08-12 00:03] VITALS: PULSE 118; RESP 22; O2SAT 99
[2019-08-12 00:07] VITALS: PULSE 118
[2019-08-12 00:14] LABS: ABG PCO2 53.7 mmHg (35-45); Base Excess ABG 7.3 mmol/L (-2.0-2.0); Blood Gas Allen Test Pos; Blood Gas Sample Site Radial, right; Blood Gas Sample Type Arterial; Carboxyhemoglobin 0.5 %THgb (0.4-20.1); HCO3 ABG 33.6 mmol/L (22-26); HGB O2 Sat 98.5 % (95-100); Methemoglobin 1.1 % (0.4-1.5); Oxygen Device NRB; Total Hemoglobin 12.4 g/dL (14-18)
[2019-08-12 00:37] LABS: Basophils % 0.2 %; Hematocrit 36.3 % (42.0-52.0); Hemoglobin 11.9 g/dL (11.7-16.6); Lymphocytes # 1.6 10^3/uL (0.8-4.8); Lymphocytes % 8.4 %; Mean Corpuscular HGB Conc 32.8 g/dL (30.0-36.0); Mean Corpuscular Hemoglobin 35.4 pg (28.0-34.0); Mean Platelet Volume 11.9 fL (7.4-10.4); Monocytes # 1.5 10^3/uL (0.2-0.9); Monocytes % 7.6 %; Neutrophils # 15.3 10^3/uL (1.8-7.7); Neutrophils % 79.7 %; Nucleated Red Blood Cells % 0 %; Platelet Count 173 10^3/cmm (130-400); Red Blood Count 3.36 10^6/uL (4.1-5.3); Red Cell Distribution Width 13.2 % (12.1-15.1); White Blood Count 19.2 10^3/uL (4.0-10.0)
[2019-08-12 00:41] LABS: INR 0.97 (0.8-1.2)
[2019-08-12 00:47] LABS: Troponin(5th) Baseline 20 ng/mL (0-15)
[2019-08-12 01:31] VITALS: BP 128/92; PULSE 66; RESP 20; O2SAT 96
[2019-08-12 01:45] VITALS: RESP 20
[2019-08-12] MEDS: morphine 4 mg/mL SDV 1 mL IVP (01:45)
[2019-08-12 01:55] LABS: Alanine Aminotransferase 76 U/L (0-41); Albumin Level 3.1 g/dL (3.5-5.2); Alkaline Phosphatase 135 IU/L (40-130); Anion Gap 16.2 (5-19); Aspartate Amino Transferase 64 U/L (0-40); Blood Urea Nitrogen 41 mg/dL (8-23); Calcium 8.7 mg/dL (8.5-10.5); Carbon Dioxide 29 mmol/L (22-29); Chloride 92 mmol/L (98-107); Globulin 3.3 g/dL (1.3-4.6); Glucose 378 mg/dL (65-115); NT Pro B Type Natriuretic Pept 7973 pg/mL (0-125); Osmolality Calculated 287 mOsm/kg (285-295); Potassium 5.2 mmol/L (3.5-5.1); Sodium 132 mmol/L (136-145); Total Bilirubin 0.5 mg/dL (0.15-1.2); Total Protein 6.4 g/dL (6.6-8.7)
[2019-08-12] MEDS: FUROsemide 10 mg/mL SDV 4mL 40 MG IVP (03:28)
[2019-08-12 04:12] VITALS: BP 152/104; PULSE 99; RESP 20; O2SAT 100
== END 2019-08-12 05:40 ==
PROVIDERS: Emergency Provider Emergency Medicine
DX: I48.91 Unspecified atrial fibrillation (principal); I11.0 Hypertensive heart disease with heart failure; I50.21 Acute systolic (congestive) heart failure; Z79.82 Long term (current) use of aspirin; Z79.01 Long term (current) use of anticoagulants; J44.9 Chronic obstructive pulmonary disease, unspecified; I25.10 Atherosclerotic heart disease of native coronary artery without angina pectoris; K21.9 Gastro-esophageal reflux disease without esophagitis; F17.210 Nicotine dependence, cigarettes, uncomplicated
CPT/HCPCS: 12345; 36600; 71045; 80053; 82805; 83880; 84484; 85025; 85610; 93005; 94640; 96365; 96366; 96375; 99283; 99285; J1940; J2270; J2930; J3490; J7611

== ENCOUNTER → 2019-09-24 10:05 | Outpatient (BNVA) | payer MEDICARE, MEDICAID, SELFPAY | PROVIDERS: Visit Provider Nurse Practitioner | DX: R91.1 Solitary pulmonary nodule (principal); K75.9 Inflammatory liver disease, unspecified; J44.9 Chronic obstructive pulmonary disease, unspecified; I10 Essential (primary) hypertension; I48.91 Unspecified atrial fibrillation; I50.30 Unspecified diastolic (congestive) heart failure | CPT/HCPCS: 80053; 85025 ==

== ENCOUNTER → 2020-02-17 10:13 | Outpatient (BNVA) | payer MEDICARE, MEDICAID, SELFPAY | PROVIDERS: PCP Nurse Practitioner; Visit Provider Nurse Practitioner | DX: I11.0 Hypertensive heart disease with heart failure (principal); I48.91 Unspecified atrial fibrillation; K75.9 Inflammatory liver disease, unspecified; J44.9 Chronic obstructive pulmonary disease, unspecified; I50.30 Unspecified diastolic (congestive) heart failure | CPT/HCPCS: 80053; 80061; 84443; 85025 ==

== ENCOUNTER → 2020-07-01 08:55 | Outpatient (BNVA) | payer MEDICARE, MEDICAID, SELFPAY | PROVIDERS: PCP Nurse Practitioner; Visit Provider Nurse Practitioner | DX: J44.9 Chronic obstructive pulmonary disease, unspecified (principal); R09.02 Hypoxemia; Z99.81 Dependence on supplemental oxygen; I48.91 Unspecified atrial fibrillation; K75.9 Inflammatory liver disease, unspecified; I50.30 Unspecified diastolic (congestive) heart failure; I11.0 Hypertensive heart disease with heart failure; I25.10 Atherosclerotic heart disease of native coronary artery without angina pectoris | CPT/HCPCS: 71046; 80053; 85025 ==

== ENCOUNTER 2021-03-17 14:10 | Inpatient (IN) | payer MEDICARE, MEDICAID, SELFPAY ==
[2021-03-17] VITALS (31 sets, daily range): BP systolic 100–169; BP diastolic 75–121; PULSE 82–164; RESP 16–29; TEMP 36.5–36.7; O2SAT 82–99; BMI 27.2
--- NOTE | 2021-03-17 14:14 | ECG_ITS ---
[facility] Test Date: 2021-03-17 Pat Name: Robert Torres Department: Room: Gender: Male Game Author: : [id number] Requested By: Amol Pierre Order Number: [id number] Reading MD: AUGUSTINE FOREMAN Measurements Intervals [place] Rate: 96 P: 75 CA: 217 QRS: -6 QRSD: 101 T: 91 QT: 357 QTc: 452 Interpretive Statements SINUS RHYTHM WITH FIRST DEGREE AV BLOCK WITH FREQUENT SUPRAVENTRICULAR PREMATURE COMPLEXES LOW QRS VOLTAGE IN EXTREMITY LEADS [QRS DEFLECTION < 0.5 mV IN LIMB LEADS] ANTERIOR MYOCARDIAL INFARCTION , PROBABLY RECENT [40+ ms Q WAVE AND/OR ST/T ABNORMALITY IN V3/V4] Compared to ECG 08/12/2019 00:08:53 First degree AV block now present Low QRS voltage now present Myocardial infarct finding now present Atrial fibrillation no longer present Electronically Signed On 03-17-2021 19:53:53 LINEN GRADER by AUGUSTINE FOREMAN [email or web address]
--- NOTE | 2021-03-17 14:14 | XRR_ITS ---
PROCEDURE INFORMATION: Exam: XR Chest Exam date and time: 03/17/2021 2:14 PM Age: 75 years old Clinical indication: Cough and dyspnea; Additional info: Dyspnea/cough TECHNIQUE: Imaging protocol: XR of the chest. Views: 1 view. COMPARISON: CR XR chest 2V* [id number] 07/01/2020 8:56 AM FINDINGS: Lungs: Right lung base nodule does not appear significantly changed. No new areas of lung consolidation are identified. Pleural spaces: Unremarkable. No pleural effusion. No pneumothorax. Heart/Mediastinum: Unremarkable. No cardiomegaly. Bones/joints: Unremarkable. XR/XR chest 1V portable [id number] IMPRESSION: No significant change when compared with 07/01/2020.If there is desire for further evaluation, a CT scan could be performed.
--- NOTE | 2021-03-17 14:31 | ED_ITS ---
HPI - Chest Pain General: Chief Complaint: Shortness of Breath/Dyspnea Stated Complaint: SOB, R/O PNEUMONIA Time Seen by Provider: 03/17/21 14:14 History of Present Illness: HPI narrative: 75-year-old male presents emergency room via EMS. Patient has a history of COPD and is on chronic oxygen at home at 3 L/min. Today's came in complaining of chest pain that began while at rest radiating into his back its been going on overnight and throughout the day tod yrn. EMS reports that his oxygen sat on 3 L on arrival was 88%. Patient denies any radiation of pain to the neck or the arms only to the back he has been mildly diaphoretic and nauseous. He denies any vomiting no productive cough or fever recently no diarrhea. Patient has no known history of coronary artery disease no previous angiogram stents or bypass. complaint: chest pain Onset (ago): hour(s) Timing of current episode: episodic Prior episodes: No Onset: during rest Pain location: substernal Pain radiation: back Severity: severe Quality: sharp Relieving factors: nothing Exacerbating factors: nothing Associated symptoms: Reports diaphoresis, dyspnea and nausea; Deny abdominal pain, fever(s), leg edema, palpitations, sense of impending doom, syncope or vomiting Treatment prior to arrival: none Review of Systems Const: Reports: diaphoresis; Denies: fever(s) ENMT: Denies: ear or mastoid pain, nasal discharge or nasal congestion Card: Denies: palpitations or syncope Resp: Reports: dyspnea GI: Reports: nausea; Denies: abdominal pain or vomiting : Denies: flank pain, dysuria, urinary frequency or urinary urgency Skin/Breast: Denies: rash or pruritus PFSH ED PFSH: Medical History Abnormal liver enzymes Acute decompensated heart failure Improved with IV diuresis Acute exacerbation of chronic obstructive airways disease Back pain COPD (chronic obstructive pulmonary disease) COPD exacerbation Coronary artery disease GERD (gastroesophageal reflux disease) Hyperglycemia Hypertension Incisional hernia Insomnia Non-compliant behavior Right inguinal hernia Surgical History H/O exploratory laparotomy H/O laminectomy History of carpal tunnel surgery History of cholecystectomy S/P laparoscopic appendectomy Family History Father Cancer Other Hypertension Social History Smoking and tobacco status: smoker, details unknown e-cigarettes E-Cigarette Details: e-cigarette Second hand smoke exposure: Yes Smoking risk assessment/counseling performed?: Yes Alcohol intake: former Year of sobriety/quit date alcohol: 6 years ago Former alcohol use details: Heavy alcohol use Desire information about alcohol rehabilitation?: No Counseling given: No Desire information about substance/drug rehabilitation?: No Counseling given: No Caregiver/support person: Yes Lives independently: No Household members: family and children Housing: House Marital status: Number of children: 3 service: No Current occupational status: retired History of recent travel: No Current gender identity: Male Physical Exam Const: COMMON NORMALS: no acute distress GENERAL APPEARANCE: cooperative and comfortable ORIENTATION/CONSCIOUSNESS: Yes awake, Yes oriented to person, Yes oriented to place and Yes oriented to time HENMT: COMMON NORMALS: normocephalic, atraumatic and hearing grossly normal bilaterally HEAD & SCALP: normocephalic and atraumatic Neck/C-Spine: COMMON NORMALS: full ROM, no lymphadenopathy, supple and no JVD Resp: COMMON NORMALS: normal respiratory effort, No retractions, No use of accessory muscles and clear to auscultation bilaterally AUSCULTATION: clear to auscultation bilaterally Cardio: COMMON NORMALS: no JVD, regular rate, regular rhythm and No murmurs present (Cardio) RATE: regular rate RHYTHM: regular rhythm GI: COMMON NORMALS: Soft to palpation and No hepatosplenomegaly present AUSCULTATION: Yes normoactive bowel sounds PALPATION: Yes Soft to palpation, No Tenderness to palpation present (GI), No Guarding due to palpation present (GI) and Yes No hepatosplenomegaly present OTHER: Large abdominal wall hernia in the left lower quadrant easily reducible. Nonincarcerated nontender on of on palpation. Extremity: COMMON NORMALS: normal to inspection, capillary refill normal, no clubbing, cyanosis or edema, no calf tenderness and no pedal edema Neuro: SENSORIUM/ORIENTATION: Yes oriented to person, Yes oriented to place and Yes oriented to time Skin: COMMON NORMALS: no rashes or lesions noted GENERAL SKIN EXAM: no rashes or lesions noted Course Vital Signs: Vital signs: Vital Signs Temperature 96.6 F L 03/21/21 16:00 Pulse Rate 60 03/21/21 16:00 Respiratory Rate 17 03/21/21 16:00 Blood Pressure 96/54 03/21/21 16:00 Pulse Oximetry 90 03/21/21 16:00 MDM - Chest Pain MDM Narrative: Medical decision making narrative: Labs imaging EKG reviewed no acute ST elevation. Does have some lateral ST depression will admit for NSTEMI discussed with hospitalist consult cardiology. Lab Data: Labs: Lab Results 03/17/21 03/17/21 03/17/21 14:30 14:30 14:30 WBC 8.0 10^3/uL 10^3/ uL (4.0-10.0) RBC 3.54 10^6/uL L 10 ^6/uL (4.1-5.3) Hgb 11.7 g/dL g/dL (11.7-16.6) Hct 37.0 % L % (42.0-52.0) MCV 104.5 fl H fl (80-94) MCH 33.1 pg pg (28.0-34.0) MCHC 31.6 g/dL g/dL (30.0-36.0) RDW 13.2 % % (12.1-15.1) Plt Count 198 10^3/cmm 10^3 /cmm (130-400) MPV 10.7 fL H fL (7.4-10.4) Neut % (Auto) 71.9 % % Lymph % (Auto) 18.3 % % [place] % (Auto) 8.7 % % Eos % (Auto) 0.1 % % Baso % (Auto) 0.5 % % Neut # (Auto) 5.76 10^3/uL 10^3 /uL (1.8-7.7) Lymph # (Auto) 1.5 10^3/uL 10^3/ uL (0.8-4.8) [place] # (Auto) 0.7 10^3/uL 10^3/ uL (0.2-0.9) Eos # (Auto) 0.0 10^3/uL 10^3/ uL (0.0-0.8) Baso # (Auto) 0.0 10^3/uL 10^3/ uL (0.0-0.1) Nucleated RBC % (a uto) 0 % % Nucleated RBCs # 0.0 /100WBC /100W BC PT INR Sodium 132 mmol/L L mmol /L (136-145) Potassium 4.9 mmol/L mmol/L (3.5-5.1) Chloride 95 mmol/L L mmol/ L (98-107) Carbon Dioxide 27 mmol/L mmol/L (22-29) Anion Gap 14.9 (5-19) BUN 21 mg/dL mg/dL (8-23) Creatinine 0.8 mg/dL mg/dL (0.7-1.2) GFR Calculation Not Reportable Glucose 105 mg/dL mg/dL (65-115) Calculated Osmolal ity 277 mOsm/kg L mOs m/kg (285-295) Calcium 8.3 mg/dL L mg/dL (8.5-10.5) Total Bilirubin 0.5 mg/dL mg/dL (0.15-1.2) AST 133 U/L H U/L (0-40) ALT 116 U/L H U/L (0-41) Alkaline Phosphata se 125 IU/L IU/L (40-130) Troponin T Baselin e 84 ng/L H ng/L (0-15) Troponin T 120 [place] Troponin T Total Protein 8.5 g/dL g/dL (6.6-8.7) Albumin 3.2 g/dL L g/dL (3.5-5.2) Globulin 5.3 g/dL H g/dL (1.3-4.6) Urine Color Urine Appearance Urine pH Ur Specific Gravit y Urine Protein Urine Glucose (UA) Urine Ketones Urine Blood Urine Nitrate Urine Bilirubin Urine Urobilinogen Ur Leukocyte Autumn ase Urine RBC Urine WBC Ur Squamous Epith Cells Amorphous Sediment Urine Bacteria Hyaline Casts Urine Mucus 03/17/21 03/17/21 03/17/21 14:30 15:15 16:30 WBC RBC Hgb Hct MCV MCH MCHC RDW Plt Count MPV Neut % (Auto) Lymph % (Auto) [place] % (Auto) Eos % (Auto) Baso % (Auto) Neut # (Auto) Lymph # (Auto) [place] # (Auto) Eos # (Auto) Baso # (Auto) Nucleated RBC % (a uto) Nucleated RBCs # PT 14.00 SECONDS SEC ONDS (12.1-14.9) INR 1.04 (0.8-1.2) Sodium Potassium Chloride Carbon Dioxide Anion Gap BUN Creatinine GFR Calculation Glucose Calculated Osmolal ity Calcium Total Bilirubin AST ALT Alkaline Phosphata se Troponin T Baselin e Troponin T 120 [place] 97.14 ng/L H ng/L (0-15) Delta Troponin T 13.14 ABS# H* ABS # (0-10) Total Protein Albumin Globulin Urine Color Yellow (Yellow) Urine Appearance Hazy A (CLEAR) Urine pH 5 (5-7) Ur Specific Gravit y 1.025 (1.005-1.030) Urine Protein 1+ H (Negative) Urine Glucose (UA) Norm (Normal) Urine Ketones Negative (Negative) Urine Blood Trace H (Negative) Urine Nitrate Negative (Negative) Urine Bilirubin Neg (Negative) Urine Urobilinogen Norm mg/dL mg/dL (Negative) Ur Leukocyte Autumn ase Negative (Negative) Urine RBC 0-4 /hpf H /hpf (0-2) Urine WBC 5-10 /hpf H /hpf (0-5) Ur Squamous Epith Cells 5-10 /hpf H /hpf (0-5) Amorphous Sediment Trace /hpf /hpf Urine Bacteria Trace /hpf /hpf (NONE) Hyaline Casts 5-10 /lpf H /lpf Urine Mucus 2+ /hpf /hpf Discharge Plan Discharge Patient Disposition: Admitted As Inpatient Admit Provider: Kristofer Powers Clinical Impression: Non-ST elevation VA (NSTEMI) Condition: Stable Coding Level of Care Code ED Netezza Developer for Chg Fwd Exam Comprehensive
[2021-03-17 14:41] LABS: Basophils % 0.5 %; Eosinophils % 0.1 %; Hemoglobin 11.7 g/dL (11.7-16.6); Lymphocytes # 1.5 10^3/uL (0.8-4.8); Lymphocytes % 18.3 %; Mean Corpuscular HGB Conc 31.6 g/dL (30.0-36.0); Mean Corpuscular Hemoglobin 33.1 pg (28.0-34.0); Mean Corpuscular Volume 104.5 fl (80-94); Mean Platelet Volume 10.7 fL (7.4-10.4); Monocytes # 0.7 10^3/uL (0.2-0.9); Monocytes % 8.7 %; Neutrophils # 5.76 10^3/uL (1.8-7.7); Neutrophils % 71.9 %; Nucleated Red Blood Cells % 0 %; Platelet Count 198 10^3/cmm (130-400); Red Blood Count 3.54 10^6/uL (4.1-5.3); Red Cell Distribution Width 13.2 % (12.1-15.1)
[2021-03-17 14:56] LABS: Troponin(5th) Baseline 84 ng/L (0-15)
[2021-03-17 14:57] LABS: Alanine Aminotransferase 116 U/L (0-41); Albumin Level 3.2 g/dL (3.5-5.2); Alkaline Phosphatase 125 IU/L (40-130); Anion Gap 14.9 (5-19); Aspartate Amino Transferase 133 U/L (0-40); Blood Urea Nitrogen 21 mg/dL (8-23); Calcium 8.3 mg/dL (8.5-10.5); Carbon Dioxide 27 mmol/L (22-29); Chloride 95 mmol/L (98-107); Globulin 5.3 g/dL (1.3-4.6); Glucose 105 mg/dL (65-115); Osmolality Calculated 277 mOsm/kg (285-295); Potassium 4.9 mmol/L (3.5-5.1); Sodium 132 mmol/L (136-145); Total Bilirubin 0.5 mg/dL (0.15-1.2); Total Protein 8.5 g/dL (6.6-8.7)
[2021-03-17] MEDS: aspirin 325 mg Tablet PO (15:05)
[2021-03-17] MEDS: clopidogrel 300 mg Tablet PO (15:05)
[2021-03-17] MEDS: morphine 4 mg/mL SDV 1 mL IVP ×2 (15:06→16:07)
[2021-03-17] MEDS: heparin 5,000 unit/mL INJ 1 mL 4000 UNIT IVP (15:06)
[2021-03-17] MEDS: metoprolol tartrate 1 mg/1 mL SDV 5 mL 2.5 MG IVP (15:06)
[2021-03-17] MEDS: nitroglycerin drip 50 MG/250 ML PREMIX IV (15:07)
--- NOTE | 2021-03-17 15:18 | PC.PHAR ---
pt brought in medication bottles-pt and pts family verified the pts medications-pts family states the pt doesnt take his medications the way he should-notes are made in the pharmacy comments
[2021-03-17 15:33] LABS: Glucose Urine UA Norm (Normal); Ketones Urine Negative (Negative); Nitrate Urine Negative (Negative); Protein Urine 1+ (Negative); Specific Gravity, Urine 1.025 (1.005-1.030); Urine Appearance Hazy (CLEAR); Urine Color Yellow (Yellow); pH Urine 5 (5-7)
[2021-03-17 15:34] LABS: Add Urine Microscopic? YES; Bilirubin Urine Neg (Negative); Blood Urine Trace (Negative); Leukocyte Esterase Urine Negative (Negative); Urobilinogen Urine Norm (Negative)
[2021-03-17 15:41] LABS: Amorphous Sediment Urine TRACE /hpf; Bacteria Urine TRACE /hpf; Mucus Urine 2+ /hpf; RBC Urine 0-4 /hpf (0-2)
[2021-03-17 15:42] LABS: Add Urine Culture? No
[2021-03-17 17:50] LABS: Troponin 5 2HR 97.14 ng/L (0-15)
[2021-03-17 17:50] LABS: INR 1.04 (0.8-1.2)
[2021-03-17 17:52] LABS: Troponin 5 2HR Delta 13.14 ABS# (0-10)
--- NOTE | 2021-03-17 17:52 | P.HP_ITS ---
Providers/Chief Complaint Primary Care Provider: AYSE [place] Chief Complaint: SOB, R/O PNEUMONIA History of Present Illness Robert Torres is a 75 year old male with a past medical history of atrial fibrillation on heparin drip, CAD according to patient he had a negative angiogram, no history of stenting, history of COPD on 3 L, diastolic CHF, hypertension, history of abdominal wall hernia, history of smoking in the last 4 years, history of marijuana use, no history of drug use, who presents to [facility] due to a 4-day history of substernal chest pain. Patient tells me that for the last 4 days he has had a pressure-like substernal chest pain, nonradiating, no lightheadedness, no dizziness, but has been feeling more short of breath. His symptoms continue to worsen, increasing the intensity of his mateo st pain, with feeling more short of breath thus he came to the emergency room. In the emergency room he is found to have a baseline troponin of 84, initial EKG showed T wave inversions in anterior chest leads, subtle ST elevations in inferior leads, this was discussed with ER physician and cardiology, who felt that this is not a STEMI event, patient continued to have chest pain, was placed on a nitro drip. During my evaluation his chest pain is minimal, substernal, no nausea, vomiting, lightheadedness, he is on 3 L, no shortness of breath. Review of Systems Const: Denies: fever(s), chills, fatigue or malaise ENMT: Denies: nasal congestion Card: Reports: chest pain; Denies: edema or lightheadedness Resp: Reports: dyspnea; Denies: productive cough, non-productive cough or wheezing GI: Denies: abdominal pain, nausea, vomiting, hematemesis, diarrhea or constipation : Denies: flank pain, difficulty urinating, dysuria or urinary frequency Neuro: Denies: headache(s), dizziness or vertigo Endo: Denies: polyuria or polydipsia Medications/Allergies Home Medications Medication Instructions Recorded Confirmed Last Taken Type nitroglycerin [Nitrostat] 0.4 mg SUBLINGUAL Q5M PRN 3 Days 08/08/19 03/17/21 Unknown Rx #3 tab Wheel chair with oxygen clamp #1 ea 07/01/20 03/17/21 Unknown Rx albuterol sulfate 2.5 mg INHALATION Q4H PRN #540 ml 07/01/20 03/17/21 Unknown Rx aspirin 81 mg tablet,delayed 81 mg PO DAILY 30 Days #30 tab 07/01/20 03/17/21 Unknown Rx release folic acid 1 mg tablet 1 mg PO DAILY 30 Days #30 tab 07/01/20 03/17/21 Unknown Rx metoprolol tartrate 50 mg tablet 50 mg PO Q12H #60 tab 07/01/20 03/17/21 Unknown Rx Miralax 17 gm PO DAILY PRN 03/17/21 03/17/21 Unknown History albuterol sulfate [ProAir HFA] 2 inh INHALATION Q4H PRN 03/17/21 03/17/21 Unknown History apixaban [Eliquis] 5 mg PO BID 03/17/21 03/17/21 Unknown History budesonide 0.5 mg INHALATION BID PRN 03/17/21 03/17/21 Unknown History diltiazem HCl 240 mg PO DAILY 03/17/21 03/17/21 Unknown History fluticasone propion-salmeterol 1 inh INHALATION BID 03/17/21 03/17/21 Unknown History [Wixela Inhub] formoterol fumarate [Perforomist] 2 ml INHALATION Q12H PRN 03/17/21 03/17/21 Unknown History furosemide 20 mg PO DAILY 03/17/21 03/17/21 Unknown History lisinopril 20 mg PO QAM 03/17/21 03/17/21 Unknown History Allergies Allergy/AdvReac Type Severity Reaction Status Date / Time methadone Allergy Intermediate unknnown Verified 08/26/19 12:56 PFSH Acute PFSH: Medical History Abnormal liver enzymes Acute decompensated heart failure Improved with IV diuresis Acute exacerbation of chronic obstructive airways disease Back pain COPD (chronic obstructive pulmonary disease) COPD exacerbation Coronary artery disease GERD (gastroesophageal reflux disease) Hyperglycemia Hypertension Incisional hernia Insomnia Non-compliant behavior Right inguinal hernia Surgical History H/O exploratory laparotomy H/O laminectomy History of carpal tunnel surgery History of cholecystectomy S/P laparoscopic appendectomy Family History Father Cancer Other Hypertension Social History Smoking and tobacco status: smoker, details unknown e-cigarettes E-Cigarette Details: e-cigarette Second hand smoke exposure: Yes Smoking risk assessment/counseling performed?: Yes Alcohol intake: former Year of sobriety/quit date alcohol: 6 years ago Former alcohol use details: Heavy alcohol use Desire information about alcohol rehabilitation?: No Counseling given: No Desire information about substance/drug rehabilitation?: No Counseling given: No Caregiver/support person: Yes Lives independently: No Household members: family and children Housing: House Marital status: Number of children: 3 service: No Current occupational status: retired History of recent travel: No Current gender identity: Male Vitals/I&O/Wt Last Vital Signs Temp 97.7 F 03/17/21 14:11 Pulse 102 H 03/17/21 16:03 Resp 22 H 03/17/21 16:07 BP 119/87 03/17/21 16:03 Pulse Ox 97 03/17/21 16:07 03/17/21 03/17/21 03/17/21 06:59 14:59 22:59 Intake Total 1.375 / 1.375 Balance 1.375 / 1.375 Weight last 48 hrs Weight 86.183 kg Physical Exam Const: COMMON NORMALS: no acute distress and patient oriented x3 GENERAL APPEARANCE: cooperative and comfortable Eye: COMMON NORMALS: Equal, round and reactive pupils present, EOMs intact bilaterally and no papilledema GENERAL EYE: appearance normal, both eyes and all related structures PUPIL: Yes Equal, round and reactive pupils present Neck/C-Spine: COMMON NORMALS: full ROM and no lymphadenopathy THYROID: Thyroid normal Resp: COMMON NORMALS: normal respiratory effort, No retractions, No use of accessory muscles and clear to auscultation bilaterally AUSCULTATION: clear to auscultation bilaterally Cardio: COMMON NORMALS: regular rate, regular rhythm, S1 normal heart sound present, S2 normal heart sound present, No gallops present (Cardio), No clicks present (Cardio) and No murmurs present (Cardio) RATE: regular rate RHYTHM: regular rhythm HEART SOUNDS: S1 normal heart sound present and S2 normal heart sound present GI: COMMON NORMALS: Normal to inspection, nondistended, normoactive bowel sounds present, Soft to palpation, non-tender and No hepatosplenomegaly present PALPATION: Yes Soft to palpation OTHER: Has an abdominal wall hernia, reducible, Extremity: COMMON NORMALS: normal to inspection, full ROM and no pedal edema Neuro: COMMON NORMALS: patient oriented x3, CN's II-XII intact bilaterally, moves all extremities and no focal motor deficits Psych: COMMON NORMALS: mental status grossly normal, Normal thought process present and cooperative THOUGHT PROCESS: Normal thought process present Data : 03/17/21 14:30 03/17/21 14:30 Micro: Microbiology 03/17/21 16:30 Blood Culture - Preliminary Blood SPECIMEN COLLECTED A&P Assessment and plan (1) Unstable angina: Plan -admit to cardiac stepdown unit -Serial troponins, serial EKGs -Monitor for chest pain -Plavix load 300 mg, aspirin 325 -Continue aspirin 81 mg, atorvastatin 40 mg, metoprolol 50 mg twice daily -Continue heparin drip -Cardiac echocardiogram -Cardiology on consult -Full code -Heparin for DVT prophylaxis NSTEMI, as above COPD, 3 L Atrial fibrillation, rate controlled, hold Eliquis, continue heparin drip, metoprolol hypertension, continue meds Periumbilical hernia, continue to monitor Status: Acute (2) Non-ST elevation ID (NSTEMI): Status: Acute (3) COPD (chronic obstructive pulmonary disease): Status: Chronic (4) Hepatitis C: Status: Acute (5) Atrial fibrillation: Status: Acute Attestations Medical Necessity Statement*: Patient requires hospitalization, for unstable angina, inpatient, greater than 2 minutes Coding Level of Care Code Acute Network Operations Project Manager for [facility] Efren Diagnoses Unstable angina I20.0 Non-ST elevation ID (NSTEMI) I21.4 COPD (chronic obstructive pulmonary disease) J44.9 Hepatitis C B19.20 Atrial fibrillation I48.91
--- NOTE | 2021-03-17 18:08 | P.CONIM_ITS ---
Providers/Reason For Consult Consulting Physician/Specialty*: Dr. Squires, cardiology Reason for Consult*: Non-ST elevation PA Requesting Physician: Dr. Powers Primary Care Provider: AYSE [place] History of Present Illness History of Present Illness Robert Torres is a 75 year old male with past medical history of atrial fibrillation, COPD on 3 L of oxygen, diastolic CHF, hypertension, history of abdominal wall hernia, history of smoking and marijuana use and h/o non co mpliance. He presented to the hospital with history of worsening SOB over last few weeks, intermittent chest pains and edema for last 3-4 days. Due to progressively worsening short of breathand dizziness, he came to the emergency room. Baseline troponin of 84 and 2 hr troponin in 97 and 6 hr 94. EKG showed sinus rhythm with frequesnt PAC's and first degree AV block. Probably recent anterio PA. At the time of symptoms, patient is on NTG gtt and complains of SOB. No chest pain at the time of evaluation. Review of Systems Const: Denies: fever(s), chills, fatigue or malaise ENMT: Denies: nasal congestion Card: Reports: chest pain, edema, swelling of feet/ankles and dyspnea on exertion; Denies: lightheadedness Resp: Reports: dyspnea; Denies: productive cough, non-productive cough or wheezing GI: Denies: abdominal pain, nausea, vomiting, hematemesis, diarrhea or constipation : Denies: flank pain, difficulty urinating, dysuria or urinary frequency Neuro: Denies: headache(s), dizziness or vertigo Endo: Denies: polyuria or polydipsia Juan C/Lymph: Denies: petechiae or purpura Meds/Allergies Home Medications and Allergies Home Medications Medication Instructions Recorded Confirmed Last Taken Type nitroglycerin [Nitrostat] 0.4 mg SUBLINGUAL Q5M PRN 3 Days 08/08/19 03/17/21 Unknown Rx #3 tab Wheel chair with oxygen clamp #1 ea 07/01/20 03/17/21 Unknown Rx albuterol sulfate 2.5 mg INHALATION Q4H PRN #540 ml 07/01/20 03/17/21 Unknown Rx aspirin 81 mg tablet,delayed 81 mg PO DAILY 30 Days #30 tab 07/01/20 03/17/21 Unknown Rx release folic acid 1 mg tablet 1 mg PO DAILY 30 Days #30 tab 07/01/20 03/17/21 Unknown Rx metoprolol tartrate 50 mg tablet 50 mg PO Q12H #60 tab 07/01/20 03/17/21 Unknown Rx Miralax 17 gm PO DAILY PRN 03/17/21 03/17/21 Unknown History albuterol sulfate [ProAir HFA] 2 inh INHALATION Q4H PRN 03/17/21 03/17/21 Unknown History apixaban [Eliquis] 5 mg PO BID 03/17/21 03/17/21 Unknown History budesonide 0.5 mg INHALATION BID PRN 03/17/21 03/17/21 Unknown History diltiazem HCl 240 mg PO DAILY 03/17/21 03/17/21 Unknown History fluticasone propion-salmeterol 1 inh INHALATION BID 03/17/21 03/17/21 Unknown History [Wixela Inhub] formoterol fumarate [Perforomist] 2 ml INHALATION Q12H PRN 03/17/21 03/17/21 Unknown History furosemide 20 mg PO DAILY 03/17/21 03/17/21 Unknown History lisinopril 20 mg PO QAM 03/17/21 03/17/21 Unknown History Allergies Allergy/AdvReac Type Severity Reaction Status Date / Time methadone Allergy Intermediate unknnown Verified 08/26/19 12:56 Current Medications Current Medications Generic Name Dose Route Start Last Admin Trade Name Freq PRN Reason Stop Dose Admin Nitroglycerin/Dextrose 50 mg in 250 mls @ 0 mls/hr 03/17/21 14:30 03/17/21 16:02 Nitroglycerin Drip IV 10 mcg/min .Q0M DONN 3 mls/hr Titration Protocol Per Protocol Morphine Sulfate 4 mg 03/17/21 14:24 03/17/21 15:06 Morphine 4 Mg/Ml Sdv 1 Ml IVP 4 mg Q5M PRN Administration CHEST PAIN PFSH Acute PFSH: Medical History Abnormal liver enzymes Acute decompensated heart failure Improved with IV diuresis Acute exacerbation of chronic obstructive airways disease Back pain COPD (chronic obstructive pulmonary disease) COPD exacerbation Coronary artery disease GERD (gastroesophageal reflux disease) Hyperglycemia Hypertension Incisional hernia Insomnia Non-compliant behavior Right inguinal hernia Surgical History H/O exploratory laparotomy H/O laminectomy History of carpal tunnel surgery History of cholecystectomy S/P laparoscopic appendectomy Family History Father Cancer Other Hypertension Social History Smoking and tobacco status: smoker, details unknown e-cigarettes E-Cigarette Details: e-cigarette Second hand smoke exposure: Yes Smoking risk assessment/counseling performed?: Yes Alcohol intake: former Year of sobriety/quit date alcohol: 6 years ago Former alcohol use details: Heavy alcohol use Desire information about alcohol rehabilitation?: No Counseling given: No Desire information about substance/drug rehabilitation?: No Counseling given: No Caregiver/support person: Yes Lives independently: No Household members: family and children Housing: House Marital status: Number of children: 3 service: No Current occupational status: retired History of recent travel: No Current gender identity: Male Vitals/I&O/Wt Last Vital Signs Temp 97.7 F 03/17/21 14:11 Pulse 102 H 03/17/21 16:03 Resp 22 H 03/17/21 16:07 BP 119/87 03/17/21 16:03 Pulse Ox 97 03/17/21 16:07 03/17/21 03/17/21 03/17/21 06:59 14:59 22:59 Intake Total 1.375 / 1.375 Balance 1.375 / 1.375 Weight last 48 hrs Weight 190 lb Physical Exam Narrative: EXAM NARRATIVE: GENERAL: obese man sitting in bed with mild respiratory distress HEENT: No pallor or icterus. NECK: JVD not appreciated. unkempt CARDIOVASCULAR SYSTEM: S1-S2 irregular. No murmur or gallops. RESPIRATORY SYSTEM: Chest clear to auscultation. No wheezes rhonchi or rubs heard. + use of accessory muscles. ABDOMEN: Soft, obese, nontender and nondistended. Normal bowel sounds present. Left lower quadrant hernia+ EXTREMITIES: No cyanosis, 1+ bilateral leg edema. No signs of chronic venous insufficiency. PRESS TECHNICIAN: Patient is alert oriented ?3. No focal neurological deficits. Data Micro: Micro: Microbiology 03/17/21 16:30 Blood Culture - Pr eliminary Blood SPECIMEN [facility] Other Data: Other data: Transthoracic echocardiogram 07 June 2019 CONCLUSIONS 1-Normal left ventricular cavity size. Normal left ventricular systolic function. Left ventricular ejection fraction is estimated at 55 %. Grade III/IV diastolic dysfunction (restrictive filling pattern), severely elevated filling pressures. 2-Normal right ventricular size. Moderate pulmonary hypertension, RVSP 49 mmHg. 3-Severe aortic valve calcification. Moderate aortic valve stenosis, mean gradient 12.9 mmHg, KERRY 1.2 cm squared. Trace aortic valve regurgitation. 4-Trace tricuspid valve regurgitation. 5-Moderately thickened mitral valve. Severe mitral annular calcification. No mitral valve stenosis. Mild mitral valve regurgitation. 6-There is no pericardial effusion. 7-Right atrial pressure is around 5 mm of mercury. 8-When compared to the prior echocardiogram dated 07/20/2015 there is deterioration of aortic valve to moderate aortic stenosis now. A&P Assessment and plan (1) Non-ST elevation PA (NSTEMI): He has been started on ACS protocol -Plan for echo and further managment based on that and clinical progression. Status: Acute (2) Heart failure with preserved ejection fraction, borderline, class III: appears mildly decompensated Status: Chronic (3) Atrial fibrillation: Status: Acute Qualifiers: Atrial fibrillation type: paroxysmal Qualified Code(s): I48.0 - Paroxysmal atrial fibrillation (4) Hypertension: Status: Chronic Qualifiers: Hypertension type: primary hypertension Qualified Code(s): I10 - Essential (primary) hypertension (5) COPD (chronic obstructive pulmonary disease): Status: Chronic Additional A&P Information Obesity Chronic respiratory failure IRVIN Hypertension Non compliance Thank you for allowing me to participate in patient's care. Please feel free to call with questions or concerns. Consult Attestations Time Spent in Patient Care: Greater than 35 minutes (>than 50% of time spent in counselling and/or direct pt care on unit) . 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
[2021-03-17] MEDS: metoprolol tartrate 50 mg Tablet PO (20:09)
[2021-03-17] MEDS: atorvastatin 40 mg Tablet PO (20:09)
--- NOTE | 2021-03-17 20:25 | ECG_ITS ---
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 Measurements Intervals [place] Rate: 155 P: VA: QRS: -56 QRSD: 102 T: 78 QT: 274 QTc: 441 Interpretive Statements ATRIAL FIBRILLATION WITH RAPID VENTRICULAR RESPONSE LEFT ANTERIOR FASCICULAR BLOCK [QRS AXIS <= -45, QR IN I, RS IN II] POSSIBLE ANTERIOR MYOCARDIAL INFARCTION , PROBABLY OLD Compared to ECG 03/17/2021 14:21:27 Left anterior fascicular block now present Sinus rhythm no longer present First degree AV block no longer present Myocardial infarct finding still present Electronically Signed On 03-19-2021 7:44:14 WORKPLACE REHABILITATION OFFICER by Maggie Squires M.D. [id number]
[2021-03-17] MEDS: heparin drip 25,000 UNIT/500 ML PREMIX 22.99 UNIT IV (20:46)
[2021-03-17 21:15] LABS: Troponin 5 6HR 93.85 ng/L (0-15); Troponin 5 6HR Delta 9.85 ng/L (0-12)
[2021-03-17] MEDS: metoprolol tartrate 25 mg Tablet PO (22:24)
[2021-03-17] MEDS: FUROsemide 10 mg/mL SDV 4mL 40 MG IVP (22:24)
[2021-03-18] VITALS (79 sets, daily range): BP systolic 78–139; BP diastolic 52–101; PULSE 57–149; RESP 11–44; TEMP 36.4–37.1; O2SAT 78–100
[2021-03-18] MEDS: zolpidem 5 mg Tablet PO (00:09)
[2021-03-18 02:55] LABS: Basophils # 0.1 10^3/uL (0.0-0.1); Basophils % 0.6 %; Eosinophils % 0.3 %; Hematocrit 36.4 % (42.0-52.0); Hemoglobin 11.5 g/dL (11.7-16.6); Lymphocytes # 3.1 10^3/uL (0.8-4.8); Lymphocytes % 30.6 %; Mean Corpuscular HGB Conc 31.6 g/dL (30.0-36.0); Mean Corpuscular Hemoglobin 33.2 pg (28.0-34.0); Mean Corpuscular Volume 105.2 fl (80-94); Mean Platelet Volume 10.9 fL (7.4-10.4); Monocytes % 19.5 %; Neutrophils # 5.01 10^3/uL (1.8-7.7); Neutrophils % 48.8 %; Nucleated Red Blood Cells % 0 %; Platelet Count 209 10^3/cmm (130-400); Red Blood Count 3.46 10^6/uL (4.1-5.3); Red Cell Distribution Width 13.5 % (12.1-15.1); White Blood Count 10.3 10^3/uL (4.0-10.0)
[2021-03-18 03:22] LABS: Partial Thromboplastin Time 79.7 SECONDS (23.9-36.7)
[2021-03-18 03:29] LABS: Alanine Aminotransferase 92 U/L (0-41); Albumin Level 2.8 g/dL (3.5-5.2); Alkaline Phosphatase 114 IU/L (40-130); Anion Gap 13.6 (5-19); Aspartate Amino Transferase 102 U/L (0-40); Blood Urea Nitrogen 28 mg/dL (8-23); C Reactive Protein 7.1 mg/L (0.0-4.9); Calcium 7.9 mg/dL (8.5-10.5); Carbon Dioxide 28 mmol/L (22-29); Chloride 97 mmol/L (98-107); Globulin 5.1 g/dL (1.3-4.6); Glucose 80 mg/dL (65-115); Magnesium 1.6 mg/dL (1.7-2.3); Osmolality Calculated 282 mOsm/kg (285-295); Phosphorus 3.6 mg/dL (2.5-4.5); Potassium 4.6 mmol/L (3.5-5.1); Sodium 134 mmol/L (136-145); Thyroid Stimulating Hormone 3.66 uIU/mL (0.27-4.20); Total Bilirubin 0.4 mg/dL (0.15-1.2); Total Protein 7.9 g/dL (6.6-8.7)
--- NOTE | 2021-03-18 04:54 | PC.NURSE ---
Transfer Note Patient transferred to ICU from ER via stretcher at 1932. Handoff received from REAL ESTATE INTERN. Patient oriented to environment and equipment. Covering service notified. Orders reviewed. Family notified
--- NOTE | 2021-03-18 04:56 | PC.NURSE ---
Pt stable throughout the night. Has been experiencing chest pain in lower chest throughout his back under his shoulder blades . Dr. Crane notified and was ordered to increase Nitroglycerin as long as blood pressure tolerates and systolic maintains >90. No other events overnight.
--- NOTE | 2021-03-18 05:00 | USCV_ITS ---
Robert Torres Age: 75 Gender: M : 1945 Exam Date: 03/18/2021 14:08 Ordering Phys: Kristofer Powers MD Technologist: Exam Location: [facility] [place] Indication: SOB BP: 109 / 68 HR: 83 Rhythm: Sinus Technical Quality: Suboptimal MEASUREMENTS (Male / Female) Normal Values 2D ECHO LV Diastolic Diameter PLAX 3.7 cm 4.2 - 5.9 / 3.9 - 5.3 cm LV Systolic Diameter PLAX 2.3 cm IVS Diastolic Thickness 1.0 cm 0.6 - 1.0 / 0.6 - 0.9 cm IVS Systolic Thickness 1.5 cm LVPW Diastolic Thickness 1.3 cm 0.6 - 1.0 / 0.6 - 0.9 cm LVPW Systolic Thickness 1.6 cm LVOT Diameter 2.0 cm LV Ejection Fraction 2D Teich 67.1 % LV Ejection Fraction MOD 2C 68.8 % LV Ejection Fraction 2C AL 70.0 % LA Diameter 4.3 cm LA Width 4.8 cm LA Height 6.0 cm RA Width 3.6 cm RA Height 5.9 cm M-MODE Aortic Annulus Diameter 3.8 cm LA Ao Ratio MM 1.3 MV E Point Septal Separation 0.8 cm DOPPLER AV Peak Velocity 266.3 cm/s LVOT Peak Velocity 82.0 cm/s AV Area Cont Eq vti 1.1 cm squared AV Area Cont Eq pk 1.0 cm squared MV Area PHT 5.0 cm squared Mitral E to A Ratio 2.9 MV E' Velocity 62.0 cm/s Mitral E to MV E' Ratio 8.6 Mitral E to LV E' Lateral Ratio 9.1 Mitral E to LV E' Septal Ratio 8.2 TR Peak Velocity 285.3 cm/s TR Peak Gradient 32.6 mmHg TV Peak E Velocity 116.0 cm/s Right Atrial Pressure 3.0 mmHg Pulmonary Artery Systolic Pressu 35.6 mmHg FINDINGS Left Ventricle Normal left ventricular cavity size. Normal left ventricular systolic function. Left ventricular ejection fraction is estimated at 55 %. Possible septal hypokinesis. Rhythm precludes evaluation of diastolic function. Right Ventricle Dilated right ventricle with probably moderately systolic function. Right ventricle not well visualized. Right ventricular systolic pressure 35.6 mmHg. Right Atrium Moderately increased right atrial size. Left Atrium Moderately increased left atrial size. Mitral Valve Thickened mitral valve. Severe mitral annular calcification. No mitral valve stenosis. Mild mitral valve regurgitation. Aortic Valve Thickened and modeately calcified aortic valve. Possibly mild to moderate aortic valve stenosis, mean gradient 12.7 mmHg, KERRY 1.1 cm squared. Visually appears to be moderate in some views. No aortic valve regurgitation. Tricuspid Valve Structurally normal tricuspid valve. [id number] tricuspid valve regurgitation. Pulmonic Valve Pulmonic valve not well visualized. Pericardium No pericardial effusion. Aorta Nomal sized aortic root. CONCLUSIONS 1. Normal left ventricular cavity size and systolic function. Left ventricular ejection fraction is estimated at 55 %. Possible septal hypokinesis. 2. Dilated right ventricle with probably moderately systolic function. 3. Mild to moderate aortic valve stenosis, mean gradient 12.7 mmHg, KERRY 1.1 cm squared. Visually appears to be moderate in some views. 4. Moderate biatrial enlargement. 5. Pulmonary artery pressue estimated at 36 mm Hg. 6. [id number] tricuspid valve regurgitation. 7. When compared to previous study dated 06/07/2019, right ventricula systolic function may have decreased. Maggie Squires MD (Electronically Signed) Final Date: 18 March 2021 16:33 S
[2021-03-18 05:24] LABS: NT Pro B Type Natriuretic Pept 12308 pg/mL (0-125)
--- NOTE | 2021-03-18 06:00 | ECG_ITS ---
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 Measurements Intervals [place] Rate: 112 P: OR: QRS: 69 QRSD: 89 T: 119 QT: 348 QTc: 476 Interpretive Statements ATRIAL FIBRILLATION WITH RAPID VENTRICULAR RESPONSE LOW QRS VOLTAGE IN EXTREMITY LEADS [QRS DEFLECTION < 0.5 mV IN LIMB LEADS] ANTERIOR MYOCARDIAL INFARCTION , PROBABLY RECENT Compared to ECG 03/17/2021 20:53:10 Low QRS voltage now present Left anterior fascicular block no longer present Myocardial infarct finding still present Electronically Signed On 03-19-2021 7:42:30 TAILOR WOMEN'S GARMENT ALTERATION by Maggie Squires M.D. [id number]
[2021-03-18] MEDS: albuterol 8 gm MDI 1 PUFF INHALATION ×5 (06:29→19:54)
[2021-03-18] MEDS: folic acid 1 mg Tablet PO (08:47)
[2021-03-18] MEDS: aspirin 81 mg EC Tablet PO (08:47)
[2021-03-18] MEDS: metoprolol tartrate 50 mg Tablet 75 MG PO ×2 (08:47→22:18)
[2021-03-18] MEDS: dilTIAZem ER (24HR) 240 mg Capsule PO (08:47)
[2021-03-18] MEDS: pantoprazole DR 40 mg Tablet PO (08:48)
[2021-03-18] MEDS: FUROsemide 10 mg/mL SDV 4mL 40 MG IVP ×2 (09:39→22:16)
[2021-03-18] MEDS: magnesium sulfate premix 2 GM/50 ML PIGGYBACK IV (09:39)
--- NOTE | 2021-03-18 12:59 | PM.PN ---
Subjective Subjective: Interval history: patient went into atrial flutter with RVR overnight. episodes of chest pain last night. CP free this morning. wants to eat Medications: Reviewed: Yes Vitals/I&O/Wt Last Vital Signs Temp 97.8 F 03/18/21 04:00 Pulse 80 03/18/21 11:58 Resp 22 H 03/18/21 11:58 BP 95/59 03/18/21 06:00 Pulse Ox 98 03/18/21 11:58 03/17/21 03/18/21 03/18/21 22:59 06:59 14:59 Intake Total 760.525 / 760.525 414.799 / 1175.324 Output Total 850 / 850 Balance 760.525 / 760.525 -435.201 / 325.324 Weight last 48 hrs Weight 190 lb Physical Exam Narrative: EXAM NARRATIVE: GENERAL: obese man sitting in bed with mild respiratory distress HEENT: No pallor or icterus. NECK: JVD not appreciated. unkempt CARDIOVASCULAR SYSTEM: S1-S2 irregular. No murmur or gallops. RESPIRATORY SYSTEM: Chest clear to auscultation. No wheezes rhonchi or rubs heard. + use of accessory muscles. ABDOMEN: Soft, obese, nontender and nondistended. Normal bowel sounds present. Left lower quadrant hernia+ EXTREMITIES: No cyanosis, 1+ bilateral leg edema. No signs of chronic venous insufficiency. OPEN SOURCE DEVELOPER: Patient is alert oriented ?3. No focal neurological deficits. Data : 03/18/21 02:46 03/18/21 02:46 Micro: Microbiology 03/17/21 Unknown Blood Culture - Preliminary Blood Gram positive akil 03/17/21 16:30 Blood Culture - Preliminary Blood SPECIMEN COLLECTED A&P Assessment and plan (1) Non-ST elevation LA (NSTEMI): Multiple CAD risk factors, EKG with probably recent anterior LA. He has been started on ACS protocol -Plan for echo and further managment based on that and clinical progression. -Plan for [facility] possibly tomorrow with Dr. Broussard Status: Acute (2) Heart failure with preserved ejection fraction, borderline, class III: appears mildly decompensated -start on lasix 40 mg IV BID -I/O charting and daily weight Status: Chronic (3) Atrial fibrillation: Paroxysmal A. fib/flutter -On Eliquis, metoprolol and diltiazem at home Status: Acute Qualifiers: Atrial fibrillation type: paroxysmal Qualified Code(s): I48.0 - Paroxysmal atrial fibrillation (4) Hypertension: Status: Chronic Qualifiers: Hypertension type: primary hypertension Qualified Code(s): I10 - Essential (primary) hypertension (5) COPD (chronic obstructive pulmonary disease): Status: Chronic Additional A&P Information Obesity Chronic respiratory failure IRVIN Hypertension Non compliance Thank you for allowing me to participate in patient's care. Please feel free to call with questions or concerns. Attestations Medical Necessity Statement*: For management of NSTEMI, CHF and A. fib with RVR Time Spent in Patient Care: Greater than 35 minutes (>than 50% of time spent in counselling and/or direct pt care on unit). Coding Level of Care Code Acute Co Op for Chg Fwd Diagnoses Non-ST elevation LA (NSTEMI) I21.4 Heart failure with preserved ejection fraction, borderline, class III I50.30 Atrial fibrillation I48.0 Atrial fibrillation type: paroxysmal Hypertension I10 Hypertension type: primary hypertension COPD (chronic obstructive pulmonary disease) J44.9
--- NOTE | 2021-03-18 13:20 | PM.PN ---
Subjective Subjective: Interval history: This morning patient remains on nitro drip, he denies any chest pain this morning, no chest pressure, no lightheadedness, no dizziness, does not complain of bilateral extremity edema, he also tells me that he is quite hungry, when will be let him eat food Vitals/I&O/Wt Last Vital Signs Temp 97.8 F 03/18/21 04:00 Pulse 80 03/18/21 11:58 Resp 22 H 03/18/21 11:58 BP 95/59 03/18/21 06:00 Pulse Ox 98 03/18/21 11:58 03/17/21 03/18/21 03/18/21 22:59 06:59 14:59 Intake Total 760.525 / 760.525 414.799 / 1175.324 Output Total 850 / 850 Balance 760.525 / 760.525 -435.201 / 325.324 Weight last 48 hrs Weight 86.183 kg Physical Exam Const: COMMON NORMALS: no acute distress and patient oriented x3 Resp: COMMON NORMALS: normal respiratory effort, No retractions, No use of accessory muscles and clear to auscultation bilaterally AUSCULTATION: clear to auscultation bilaterally Cardio: COMMON NORMALS: regular rate, regular rhythm, S1 normal heart sound present and S2 normal heart sound present RATE: regular rate RHYTHM: regular rhythm HEART SOUNDS: S1 normal heart sound present and S2 normal heart sound present GI: COMMON NORMALS: Normal to inspection, nondistended, normoactive bowel sounds present, Soft to palpation and non-tender PALPATION: Yes Soft to palpation Extremity: NARRATIVE EXTREMITY EXAM: 1+ pitting edema bilateral extremity Neuro: COMMON NORMALS: patient oriented x3 Psych: COMMON NORMALS: mental status grossly normal Data : 03/18/21 02:46 03/18/21 02:46 Micro: Microbiology 03/17/21 Unknown Blood Culture - Preliminary Blood Gram positive akil 03/17/21 16:30 Blood Culture - Preliminary Blood SPECIMEN COLLECTED A&P Assessment and plan (1) Unstable angina: Plan -admit to cardiac stepdown unit -6-hour troponin 93.85, delta 9.8 -EKG shows nonspecific ST-T wave changes in inferior leads -Monitor for chest pain -Plavix load 300 mg, aspirin 325 -Continue aspirin 81 mg, atorvastatin 40 mg, metoprolol 50 mg twice daily -Continue heparin drip -Nitro drip -Lasix for acute on chronic systolic CHF exacerbation -Cardiac echocardiogram pending -Cardiology on consult -Full code -Heparin for DVT prophylaxis NSTEMI, as above COPD, 3 L Atrial fibrillation, rate controlled, hold Eliquis, continue heparin drip, metoprolol hypertension, continue meds Periumbilical hernia, continue to monitor Status: Acute (2) Non-ST elevation GA (NSTEMI): Status: Acute (3) COPD (chronic obstructive pulmonary disease): Status: Chronic (4) Hepatitis C: Status: Acute (5) Atrial fibrillation: Status: Acute Qualifiers: Atrial fibrillation type: paroxysmal Qualified Code(s): I48.0 - Paroxysmal atrial fibrillation (6) Acute systolic heart failure: Status: Acute Attestations Medical Necessity Statement*: Patient requires hospitalization for unstable angina, acute on chronic systolic CHF Coding Level of Care Code Acute Java Programmer Analyst for g Fwd Diagnoses Unstable angina I20.0 Non-ST elevation GA (NSTEMI) I21.4 COPD (chronic obstructive pulmonary disease) J44.9 Hepatitis C B19.20 Atrial fibrillation I48.0 Atrial fibrillation type: paroxysmal Acute systolic heart failure I50.21
[2021-03-18 14:03] LABS: SARS Covid-2 Antigen Negative (Negative)
[2021-03-18 17:21] LABS: Partial Thromboplastin Time 68.4 SECONDS (23.9-36.7)
[2021-03-18] MEDS: acetaminophen 325 mg Tablet 650 MG PO (18:31)
[2021-03-18] MEDS: heparin drip 25,000 UNIT/500 ML PREMIX 22 UNIT IV (19:35)
[2021-03-18] MEDS: morphine 4 mg/mL SDV 1 mL 2 MG IVP (20:39)
[2021-03-18] MEDS: atorvastatin 40 mg Tablet PO (22:17)
[2021-03-18] MEDS: clopidogrel 75 mg Tablet PO (22:18)
--- NOTE | 2021-03-18 23:48 | PC.NURSE ---
Patient arrived to his room at this time after report was received from INSTRUMENT SETTER. Patient is alert and oriented and is on 3 L NC in A-fib. Patient does not c/o any chest pain, but does c/o back pain. Patient has heparin and nitro drip running upon arrival. Patient oriented to his room and call light.
[2021-03-19] VITALS (74 sets, daily range): BP systolic 69–175; BP diastolic 17–102; PULSE 62–150; RESP 13–36; TEMP 36.1–37.1; O2SAT 80–100
[2021-03-19] MEDS: acetaminophen 325 mg Tablet 650 MG PO (00:04)
--- NOTE | 2021-03-19 00:06 | PC.NURSE ---
Report called to GAY Delgado. Patient transferred to CSU room 107 with all belongings including home meds via wheelchair. Patient assisted to the bed x1 assist. Patient tolerated well.
[2021-03-19] MEDS: albuterol 8 gm MDI 1 PUFF INHALATION ×3 (00:14→21:50)
--- NOTE | 2021-03-19 01:21 | PC.NURSE ---
Dr. Abernathy notified of patient c/o back pain, stating that he can't sleep because of it, asking for the pain shot, and becoming angry when told it is not time for the PRN Morphine yet. Patient states that Tylenol does not help. Ordered to change PRN IV Morphine from q8 hours to q4 hours.
[2021-03-19] MEDS: morphine 4 mg/mL SDV 1 mL 2 MG IVP (01:39)
--- NOTE | 2021-03-19 04:36 | PC.NURSE ---
Patient is sitting in bed naked. Patient refusing to have gown put on. Patient states dammit I can't find my electronic cigarette. Patient educated that he is not to have these on hospital property. Patient verbalized understanding. Unable to find at this time.
[2021-03-19 05:09] LABS: Basophils # 0.1 10^3/uL (0.0-0.1); Basophils % 0.6 %; Eosinophils # 0.2 10^3/uL (0.0-0.8); Eosinophils % 2.2 %; Hematocrit 35.1 % (42.0-52.0); Hemoglobin 11.5 g/dL (11.7-16.6); Lymphocytes % 31.2 %; Mean Corpuscular HGB Conc 32.8 g/dL (30.0-36.0); Mean Corpuscular Hemoglobin 34.4 pg (28.0-34.0); Mean Corpuscular Volume 105.1 fl (80-94); Mean Platelet Volume 10.9 fL (7.4-10.4); Monocytes # 1.4 10^3/uL (0.2-0.9); Monocytes % 14.1 %; Neutrophils # 4.97 10^3/uL (1.8-7.7); Neutrophils % 51.6 %; Nucleated Red Blood Cells % 0 %; Platelet Count 186 10^3/cmm (130-400); Red Blood Count 3.34 10^6/uL (4.1-5.3); Red Cell Distribution Width 13.6 % (12.1-15.1); White Blood Count 9.6 10^3/uL (4.0-10.0)
[2021-03-19 05:26] LABS: Partial Thromboplastin Time 37.3 SECONDS (23.9-36.7)
[2021-03-19 05:48] LABS: Alanine Aminotransferase 78 U/L (0-41); Albumin Level 2.9 g/dL (3.5-5.2); Alkaline Phosphatase 110 IU/L (40-130); Anion Gap 14.5 (5-19); Aspartate Amino Transferase 86 U/L (0-40); Blood Urea Nitrogen 35 mg/dL (8-23); C Reactive Protein 11.2 mg/L (0.0-4.9); Calcium 7.8 mg/dL (8.5-10.5); Carbon Dioxide 27 mmol/L (22-29); Chloride 95 mmol/L (98-107); Creatinine Clr Calc Pharmacy 79.7227; Glucose 84 mg/dL (65-115); Magnesium 1.6 mg/dL (1.7-2.3); NT Pro B Type Natriuretic Pept 6630 pg/mL (0-125); Osmolality Calculated 281 mOsm/kg (285-295); Phosphorus 2.2 mg/dL (2.5-4.5); Potassium 4.5 mmol/L (3.5-5.1); Sodium 132 mmol/L (136-145); Total Bilirubin 0.3 mg/dL (0.15-1.2); Total Protein 7.9 g/dL (6.6-8.7)
--- NOTE | 2021-03-19 06:00 | ECG_ITS ---
[facility] Test Date: 2021-03-19 Pat Name: Robert Torres Department: Room: 107 Gender: Male Fundraising Sale Representative: : 1945 Requested By: Kristofer Powers Order Number: [id number] Reading MD: AUGUSTINE FOREMAN Measurements Intervals [place] Rate: 69 P: WI: QRS: 43 QRSD: 94 T: 150 QT: 497 QTc: 533 Interpretive Statements ATRIAL FIBRILLATION WITH ABERRANT CONDUCTION OR VENTRICULAR PREMATURE COMPLEXES POSSIBLE ANTERIOR MYOCARDIAL INFARCTION , OF INDETERMINATE AGE [30 ms Q WAVE IN V3/V4, OR R < 0.2 mV IN V4] MARKED T-WAVE ABNORMALITY, CONSIDER LATERAL ISCHEMIA [-0.5+ mV T WAVE IN I/aVL/V5/V6] MODERATE T-WAVE ABNORMALITY, CONSIDER INFERIOR ISCHEMIA [-0.1+ mV T WAVE IN II/aVF] Compared to ECG 03/18/2021 06:16:08 Ventricular premature complex(es) now present Aberrant conduction of supraventricular beat(s) now present T-wave abnormality now present Possible ischemia now present Atrial flutter no longer present Myocardial infarct finding still present Electronically Signed On 03-20-2021 20:00:05 FLIGHT KITCHEN MANAGER by AUGUSTINE FOREMAN [id number]
--- NOTE | 2021-03-19 06:26 | PC.NURSE ---
PTT significantly lower when numbers had been somewhat steady. A couple minutes prior to PTT being draw by lab, patient had pulled IV out. Heparin drip was off until a new IV could be started. Another PTT drawn at this time to ensure accuracy before titrating drip.
[2021-03-19 06:58] LABS: Partial Thromboplastin Time 35.3 SECONDS (23.9-36.7)
[2021-03-19] MEDS: heparin 5,000 unit/mL INJ 1 mL IV (07:29)
[2021-03-19] MEDS: sodium chloride 0.9% 1,000 ML 50 ML IV (08:05)
[2021-03-19] MEDS: diphenhydrAMINE 50 mg Capsule PO (08:05)
--- NOTE | 2021-03-19 08:43 | XACV_ITS ---
Exam Room: [facility] Ht: 178 cm Wt: 86 kg BSA: 2.08 m2 Gender: Male : 1945 Any Known Allergies: Other Exam Priority: Routine Procedure(s): Procedure Description: Diagnostic procedure Procedure Description: PCI procedure Procedure Description: PTCA Procedure Description: Miscellaneous Procedure Description: ACT Procedure Description: Pressure Wire Bobo BUITRAGO; Diagnostic Cath Status: Elective Diagnostic Findings * Left Main has no disease. * Left Anterior Descending has no disease. * Proximal Circumflex: minimal 30% stenosis, MARTHA: 3 flow. * Posterior Descending Right: significant 80% stenosis, MARTHA: 3 flow. * Coronary angiography shows right dominance. Interventional Findings * Posterior Descending Right: 80% stenosis treated with a AB MINI TREK 2.00X12 RX BALLOON. 20% residual stenosis, MARTHA: 3 flow. Conclusions 1. There is significant coronary artery disease with two vessel disease. 2. Posterior Descending Right was treated with a Balloon. Recommendations * Continue current medical management and risk factor modification. Pressures Phase:Rest AO : 122 / 101 ( 111 ) @ 9:21:00 AM 141 / 95 ( 109 ) @ 9:34:00 AM 114 / 98 ( 102 ) @ 9:46:00 AM 116 / 99 ( 98 ) @ 9:51:00 AM 123 / 91 ( 104 ) @ 9:54:00 AM Clinical Evaluation EBL: 5mL-10mL Procedural Details Procedure Consent Obtained. Pre-Procedure Time Out. Identified patient by full name and date of as verbalized by the patient/guarantor. Does the consent match the physician's order: Yes. Accurate & Complete Informed Consent: Yes. Inpatient/Outpatient History & Physical on Chart: Yes. If H&P is completed, is and addenduem needed: No; If yes, is the addendum complete: N/A. Visualize and Verify Site with Patient/Guarantor: N/A. Relevant Radiology Images available: Yes. Pre-op teaching completed and patient verbalized understanding. The risks, benefits, and alternatives of sedation and/or procedure were discussed by physician. The patient agrees to continue. Procedure started. [facility] Clinical Fraility Score: 5: Mildly Frail. Street Light Mechanic Indications: LV Dysfunction. Chest Pain Symptom Assessment: Non-anginal Chest Pain. Correct patient, site and procedure confirmed by cath team. PERRLA. Strong, equal hand engineer rf deployment bilaterally. Lungs clear x 5 lobes. IV Site on Arrival: 20 gauge in the left anticubital. IV Site on Arrival: 18 gauge in the right anticubital. IV Fluids: 0.9% NaCl at KVO. 0 mL infused prior to equipment operator/laborer/supervisor. Pre Procedural Pulses: bilateral dorsalis pedis was Doppled. Pre Procedural Pulses: bilateral posterior tibial was Doppled. Pre Procedural Pulses: bilateral radial was 3+. Oxygen started at 4liters/min via nasal canula. right groin was prepped with chloroprep then draped in the usual sterile fashion. Physician notified. right radial was prepped with chloroprep then draped in the usual sterile fashion. right brachial was prepped with chloroprep then draped in the usual sterile fashion. Baseline sample Acquired. HR: [address] Squires arrived to scrub in with Dr. Broussard. Ophelia Hurtado RN circulating. Dr. Broussard arrived. Dr. Broussard scrubbed in. Immediate Pre-Procedure Time Out. Correct Patient: Yes; Correct Procedure: Yes; Correct Site: Yes; Correct Patient Position: Yes; Correct Supplies: Yes; Dried Flammable Prep: Yes; Blood Products Available: N/A;. Lidocaine 1% infiltrated to the right radial by Dr. Squires. Arterial access obtained by Dr. Squires. A 5 vietnamese TIG catheter in over wire. Multiple views taken of left coronary artery. Catheter redirected to the RCA. Multiple views taken of right coronary artery. Catheter removed over the exchange wire. 6 vietnamese XB 3.5 guide catheter was inserted over the wire. Guide catheter out. 6 vietnamese JL 3.5 guide catheter was inserted over the wire. IFR guidewire was advanced through the guide catheter to lesion in the prox Circ. Wire out. Guide catheter out. 6 vietnamese JL 3 guide catheter was inserted over the wire. IFR guidewire was advanced through the guide catheter to lesion in the Circ. Wire out. IFR guidewire was advanced through the guide catheter to lesion in the Circ. Measurements obtained. Results: 0.93. Guide catheter out. 6 vietnamese JR 4 guide catheter was inserted over the wire. ACT drawn. Results 106 seconds. Therapeutic limits - pre-heparin administration 90-150 seconds and monitoring heparin during a vascular procedure >250 seconds. [place] guidewire was advanced through the guide catheter to lesion in the PDA. Inflation number : 1 A AB MINI TREK 2.00X12 RX BALLOON was prepped and advanced across the R PDA , then inflated to 14 JACKIE for 0:14 seconds. Inflation number: 2 The AB MINI TREK 2.00X12 RX BALLOON was reinflated across the R PDA, to 12 JACKIE for 0:12 seconds. Inflation number: 3 The AB MINI TREK 2.00X12 RX BALLOON was reinflated across the R PDA, to 14 JACKIE for 0:00 seconds. Balloon out. Results checked. Wire out. Guide catheter out. A TR Band was successful obtaining hemostatsis at the Right Radial artery insertion site. Post Procedure: Pulses reassessed and unchanged. PERRLA. Strong, equal hand engineer rf deployment bilaterally. No VTE prophylaxis required. Medication's Wasted: Lidocaine 1% = 18 mL. Medication's Wasted: Heparin = 3000 units. Medication's Wasted: Other = Versed 1 mg. No VTE prophylaxis required. Total IV fluids: 88 mL. Contrast type used: Visipaque 320 mgI/mL, 500 mL bottle. Complications: None. Estimated blood loss: 5mL-10mL. Responsiveness - Normal response to verbal stimuli; alert and oriented, PERRLA. Airway - Unaffected, no intervention required; spontaneous ventilation. Circulation: W/N/L, pulses unchanged. Nausea/Vomiting: No. Procedure completed. Patient transferred by bed to 1st floor. Vital chart was stopped. Access Site Site: Right Radial artery Sheath Size: 6 Fr Hemostasis Method: TR Band Hemostasis Success: Successful Procedure Medications Start: 11:03 AM Stop: 11:03 AM Medication: Versed Amount: 1 mg Route: I.V. Start: 11:03 AM Stop: 11:03 AM Medication: Versed Amount: 1 mg Route: I.V. Start: 11:03 AM Stop: 11:03 AM Medication: Fentanyl Amount: 50 mcg Route: I.V. Start: 11:08 AM Stop: 11:08 AM Medication: Versed Amount: 1 mg Route: I.V. Start: 11:12 AM Stop: 11:12 AM Medication: Fentanyl Amount: 50 mcg Route: I.V. Start: 11:13 AM Stop: 11:13 AM Medication: Nitrogylcerin Amount: 200 mcg Route: I.A. Start: 11:29 AM Stop: 11:29 AM Medication: Heparin Amount: 5000 units Route: I.V. Start: 11:37 AM Stop: 11:37 AM Medication: Versed Amount: 1 mg Route: I.V. Start: 11:59 AM Stop: 11:59 AM Medication: Heparin Amount: 8000 units Route: I.V. Start: 12:04 PM Stop: 12:04 PM Medication: Nitrogylcerin Amount: 200 mcg Route: I.C. I, the attending physician, have reviewed and verified all procedure medications. Yes, all medications given per verbal order History/Risk Factors Hypertension: Yes Dyslipidemia: No Peripheral Arterial Disease (PAD): No Myocardial Infarction (WA): No Obesity: No Renal Disease: No Tobacco Use: Current/Recent(w/in 1 year) Prior Interventions PCI: No CABG: No Valve Surgery: No Report Signatures Finalized by Michael Broussard MD on 03/22/2021 08:28 PM
--- NOTE | 2021-03-19 10:11 | W.PM.OPSUD ---
Surgery/Procedure H&P Update DATE OF PROCEDURE: March 19, 2021 DATE H&P PERFORMED: 03/17/21 H&P UPDATE INFORMATION: I have reviewed H&P completed within last 30 days, I have examined patient prior to procedure and No changes to prior documentation PREOP DIAGNOSIS: Elevated cardiac markers suspicious for non-ST elevation CT, short of breat PLANNED PROCEDURE: Operation Date: 03/19/21 09:00 Proposed Procedures p Cardiac Catheterization(Bilateral) - Michael Broussard MD PATIENT REASSESSED PRIOR TO SEDATION, WITH NO CHANGE NOTED: Yes PHYSICAL EXAM: alert, oriented x 3 and clear to auscultation bilaterally AIRWAY EVAL/ANESTHESIA PLAN: ASA II and Risks, benefits & alternatives of sedation and/or procedure discussed ADDITIONAL INFORMATION: Patient has been explained all risk benefit and alternative for the procedure patient understand risk for contrast-induced nephropathy stroke major minor bleed transfusion urgent emergent bypass or vascular surgery. Patient understood and like to proceed with it. Indication for left and right heart cath elevated cardiac markers chest pain worsening of shortness of breath, risk factors hypertension smoker COPD
--- NOTE | 2021-03-19 12:17 | P.PN_ITS ---
Subjective Subjective: Interval history: Patient underwent coronary angiogram for non-ST elevation RI and recurrent chest pain. He was noted to have ostial moderate 40 to 50% in stenosis which was eccentric IFR was performed which was 0.93 and not significant. He was also noted to have significant mid and distal calcified PDA lesions. Both this lesion were treated with balloon angioplasty. 80 to 90% lesions were reduced to 40 to 50%. Patient has mild anemia he is on apixaban for A. fib therefore we divided stent for long-term DAPT. Post cath patient started wheezing appear to be in volume overload status/moderate pulmonary edema. Will give IV diuresis and for a COPD exacerbation will recommend nebulized treatment. Medications: Reviewed: Yes Vitals/I&O/Wt Last Vital Signs Temp 97.0 F L 03/19/21 08:00 Pulse 76 03/19/21 08:34 Resp 16 03/19/21 08:34 BP 121/17 03/19/21 08:00 Pulse Ox 97 03/19/21 08:34 03/18/21 03/19/21 03/19/21 22:59 06:59 14:59 Intake Total 665.201 / 1265.201 95.7 / 1360.901 158.55 / 158.55 Output Total 1100 / 2200 550 / 2750 150 / 150 Balance -434.799 / -934.799 -454.3 / -1389.099 8.55 / 8.55 Weight last 48 hrs Weight 190 lb Physical Exam Narrative: EXAM NARRATIVE: GENERAL: Patient is alert, awake and oriented x3. NECK: No jugular vein distension. HEENT: No cyanosis. No icterus. No pallor. HEART: Irregularly irregular S1 and S2. No murmur, rub or gallop. LUNGS: Mild inspiratory crackles with expiratory wheezing and tightness of the chest bilaterally. ABDOMEN: Soft, nontender and nondistended. Positive bowel sounds. No guarding, rebound or tenderness. CENTRAL NERVOUS SYSTEM: Grossly nonfocal. EXTREMITIES: Lower extremities with 1+ edema bilaterally. Const: COMMON NORMALS: alert Resp: COMMON NORMALS: clear to auscultation bilaterally AUSCULTATION: clear to auscultation bilaterally Neuro: SENSORIUM/ORIENTATION: Yes alert Data : 03/19/21 04:35 03/19/21 04:35 Micro: Microbiology 03/17/21 Unknown Blood Culture - Preliminary Blood Bacillus sp not b. anthracis 03/17/21 16:30 Blood Culture - Preliminary Blood NEGATIVE TO DATE A&P Assessment and plan (1) Non-ST elevation RI (NSTEMI): As above patient underwent coronary angiogram for non-ST elevation RI and recurrent chest pains. He was noted to have nonsignificant lesion of ostial circumflex by IFR, PDA is noted to have moderate to high-grade calcified mid and distal lesion which most likely the culprit those were treated with balloon angioplasty since patient has had anemia and because of the fact he is on apixaban so we avoided stent placement in order to shorten the DAPT. Continue medical management. Post cath patient shortness of breath has worsened most likely pulmonary edema and COPD exacerbation we will treated with IV Lasix and nebulized treatment Status: Acute (2) Heart failure with preserved ejection fraction, borderline, class III: Appear to be volume overloaded post cath we will give him IV Lasix oxygen and nebulized treatment Status: Chronic (3) Atrial fibrillation: Continue metoprolol Cardizem resume apixaban from tonight Status: Acute Qualifiers: Atrial fibrillation type: paroxysmal Qualified Code(s): I48.0 - Paroxysmal atrial fibrillation (4) Hypertension: Well-controlled. Continue current regimen Status: Chronic Qualifiers: Hypertension type: primary hypertension Qualified Code(s): I10 - Essential (primary) hypertension (5) COPD (chronic obstructive pulmonary disease): Nebulized treatment as per. Status: Chronic Additional A&P Information Obesity Chronic respiratory failure IRVIN Hypertension Non compliance Thank you for allowing me to participate in patient's care. Please feel free to call with questions or concerns. Attestations Medical Necessity Statement*: Patient require continuation hospitalization for above defined care Coding Level of Care Code Established Pt Acute Wastewater Technician for Gretel Schwartz Patient Type Established History Detailed Exam Detailed Medical Decision Making Moderate Complexity Diagnoses Non-ST elevation RI (NSTEMI) I21.4 Heart failure with preserved ejection fraction, borderline, class III I50.30 Atrial fibrillation I48.0 Atrial fibrillation type: paroxysmal Hypertension I10 Hypertension type: primary hypertension COPD (chronic obstructive pulmonary disease) J44.9
--- NOTE | 2021-03-19 12:45 | PC.NURSE ---
Pt returned from pharmaceutical laboratory technician at approximately 1230. Pt had TR Band on right wrist. Pt had no swelling, hematoma, or bleeding noted. Pt had no c/o pain or discomfort at the present time. Call light in reach. Will continue to monitor.
--- NOTE | 2021-03-19 14:38 | PM.PN ---
Subjective Subjective: Interval history: Patient was seen this morning, no episodes of chest pain, no lightheadedness, dizziness cardiovascular vomiting, continues to complain of lower extremity edema Vitals/I&O/Wt Last Vital Signs Temp 97.0 F L 03/19/21 08:00 Pulse 76 03/19/21 08:34 Resp 16 03/19/21 08:34 BP 121/17 03/19/21 08:00 Pulse Ox 97 03/19/21 08:34 03/18/21 03/19/21 03/19/21 22:59 06:59 14:59 Intake Total 665.201 / 1265.201 95.7 / 1360.901 158.55 / 158.55 Output Total 1100 / 2200 550 / 2750 150 / 150 Balance -434.799 / -934.799 -454.3 / -1389.099 8.55 / 8.55 Physical Exam Const: COMMON NORMALS: no acute distress and patient oriented x3 Resp: COMMON NORMALS: normal respiratory effort, No retractions, No use of accessory muscles and clear to auscultation bilaterally AUSCULTATION: clear to auscultation bilaterally Cardio: COMMON NORMALS: regular rate, regular rhythm, S1 normal heart sound present and S2 normal heart sound present RATE: regular rate RHYTHM: regular rhythm HEART SOUNDS: S1 normal heart sound present and S2 normal heart sound present GI: COMMON NORMALS: Normal to inspection, nondistended, normoactive bowel sounds present, Soft to palpation and non-tender PALPATION: Yes Soft to palpation Extremity: NARRATIVE EXTREMITY EXAM: Bilateral 1+ pitting edema Neuro: COMMON NORMALS: patient oriented x3 Psych: COMMON NORMALS: mental status grossly normal Data : 03/19/21 04:35 03/19/21 04:35 Micro: Microbiology 03/17/21 Unknown Blood Culture - Preliminary Blood Bacillus sp not b. anthracis 03/17/21 16:30 Blood Culture - Preliminary Blood NEGATIVE TO DATE A&P Assessment and plan (1) Unstable angina: Plan -admit to cardiac stepdown unit -6-hour troponin 93.85, delta 9.8 -EKG shows nonspecific ST-T wave changes in inferior leads -Monitor for chest pain -Plavix load 300 mg, aspirin 325 -Continue aspirin 81 mg, atorvastatin 40 mg, metoprolol 50 mg twice daily -Continue heparin drip -Nitro drip -Cardiology on consult -Proceeding with coronary angiogram -Cardiac echocardiogram pending 1. Normal left ventricular cavity size and systolic function. Left ventricular ejection fraction is estimated at 55 %. Possible septal hypokinesis. 2. Dilated right ventricle with probably moderately systolic function. 3. Mild to moderate aortic valve stenosis, mean gradient 12.7 mmHg, KERRY 1.1 cm squared. Visually appears to be moderate in some views. 4. Moderate biatrial enlargement. 5. Pulmonary artery pressue estimated at 36 mm Hg. 6. [id number]-[id number] tricuspid valve regurgitation. 7. When compared to previous study dated 06/07/2019, right ventricula systolic function may have decreased. -Full code -Heparin for DVT prophylaxis NSTEMI, as above COPD, 3 L Atrial fibrillation, rate controlled, hold Eliquis, continue heparin drip, metoprolol hypertension, continue meds Periumbilical hernia, continue to monitor Status: Acute (2) Non-ST elevation SD (NSTEMI): Status: Acute (3) COPD (chronic obstructive pulmonary disease): Status: Chronic (4) Hepatitis C: Status: Acute (5) Atrial fibrillation: Status: Acute Qualifiers: Atrial fibrillation type: paroxysmal Qualified Code(s): I48.0 - Paroxysmal atrial fibrillation (6) Acute systolic heart failure: Status: Acute Attestations Medical Necessity Statement*: Patient requires hospitalization for unstable angina Coding Level of Care Code 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
--- NOTE | 2021-03-19 16:50 | PC.NURSE ---
Pt continually pulling off oxygen and throwing it in the floor, Pt also continually pulling off gown and telemetry wires, Pt A&O x4, pt teaching was done on the importance of leaving oxygen and tele wires on, Pt refuses to be redirected and continually pulling off oxygen and tele wires and gown and throwing them in floor. Pt teaching was repeated and repeated on the importance of leaving in O2 and leaving on telemetry wires. Pt continually refuses to be compliant to pt teaching and keeps pulling off O2 and throwing it in floor. Pt refuses to be redirected. Will cont to monitor.
[2021-03-19] MEDS: pantoprazole DR 40 mg Tablet PO (17:27)
[2021-03-19] MEDS: metoprolol tartrate 50 mg Tablet 75 MG PO (17:27)
[2021-03-19] MEDS: clopidogrel 75 mg Tablet PO (17:28)
[2021-03-19] MEDS: folic acid 1 mg Tablet PO (17:28)
[2021-03-19] MEDS: dilTIAZem ER (24HR) 240 mg Capsule PO (17:28)
--- NOTE | 2021-03-19 19:20 | PC.NURSE ---
Received report from GAY Cordon. Patient is s/p C with PCI via right radial artery. Patient has TR band in place. No s/s of bleeding or hematoma formation observed. Patient has his NC at his mouth presently. Reports feeling comfortable for now. No distress observed. Will continue to monitor.
--- NOTE | 2021-03-19 19:45 | PC.NURSE ---
TR band removed at this time. GAY Cordon initiated air removal from TR band ~1630 removing air every 20 -30min until band off at this time. No s/s of bleeding or hematoma formation observed. Covered site with 2x2 and coban per patient's request. Patient reports site to right wrist feeling tender with touch. Again, no bleeding, bruising or hematoma formation observed. Pulses palpable and warm to touch.
[2021-03-19] MEDS: FUROsemide 10 mg/mL SDV 4mL 40 MG IVP (21:14)
[2021-03-19] MEDS: ondansetron 2 mg/ML SDV 2 mL 4 MG IVP (21:14)
[2021-03-19] MEDS: zolpidem 5 mg Tablet PO (21:15)
[2021-03-19] MEDS: atorvastatin 40 mg Tablet PO (21:15)
--- NOTE | 2021-03-19 22:32 | PC.NURSE ---
Patient upset presently because he cannot find his blue vape. Attempted search with no luck.
[2021-03-20] VITALS (18 sets, daily range): BP systolic 94–146; BP diastolic 55–94; PULSE 52–89; RESP 16–25; O2SAT 93–100
[2021-03-20] MEDS: morphine 4 mg/mL SDV 1 mL 2 MG IVP ×2 (00:14→03:29)
[2021-03-20] MEDS: acetaminophen 325 mg Tablet 650 MG PO (01:26)
--- NOTE | 2021-03-20 02:03 | PC.NURSE ---
Patient unable to sleep even after received Ambien at bedtime. Patient feeling tired and reports not sleeping for several day. Informed Dr Abernathy and received order for Xanax 0.25mg PO.
[2021-03-20] MEDS: ALPRAZolam 0.5 mg Tablet 0.25 MG PO ×2 (02:07→19:42)
[2021-03-20] MEDS: albuterol 8 gm MDI 1 PUFF INHALATION (02:44)
--- NOTE | 2021-03-20 06:00 | ECG_ITS ---
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1945 Requested By: Kristofer Powers Order Number: [id number] Reading MD: AUGUSTINE FOREMAN Measurements Intervals [place] Rate: 68 P: MS: QRS: 79 QRSD: 90 T: 116 QT: 454 QTc: 486 Interpretive Statements ATRIAL FLUTTER/TACHYCARDIA LOW QRS VOLTAGE IN EXTREMITY LEADS [QRS DEFLECTION < 0.5 mV IN LIMB LEADS] MARKED T-WAVE ABNORMALITY, CONSIDER ANTEROLATERAL ISCHEMIA [-0.5+ mV T-WAVE IN I/aVL/V3-V6] Compared to ECG 03/19/2021 05:49:22 Low QRS voltage now present Atrial fibrillation no longer present Ventricular premature complex(es) no longer present Aberrant conduction of supraventricular beat(s) no longer present Myocardial infarct finding no longer present T-wave abnormality still present Possible ischemia still present Electronically Signed On 03-20-2021 19:59:32 FOREST PATHOLOGY PROFESSOR by AUGUSTINE FOREMAN [id number]
[2021-03-20 07:22] LABS: Basophils % 0.3 %; Eosinophils # 0.2 10^3/uL (0.0-0.8); Eosinophils % 2.4 %; Hematocrit 34.1 % (42.0-52.0); Hemoglobin 10.9 g/dL (11.7-16.6); Lymphocytes % 31.8 %; Mean Corpuscular Hemoglobin 33.3 pg (28.0-34.0); Mean Corpuscular Volume 104.3 fl (80-94); Mean Platelet Volume 11.8 fL (7.4-10.4); Monocytes # 2.1 10^3/uL (0.2-0.9); Monocytes % 22.3 %; Neutrophils # 3.99 10^3/uL (1.8-7.7); Neutrophils % 42.9 %; Nucleated Red Blood Cells % 0 %; Platelet Count 156 10^3/cmm (130-400); Red Blood Count 3.27 10^6/uL (4.1-5.3); Red Cell Distribution Width 13.6 % (12.1-15.1); White Blood Count 9.3 10^3/uL (4.0-10.0)
[2021-03-20 07:39] LABS: Alanine Aminotransferase 69 U/L (0-41); Albumin Level 2.7 g/dL (3.5-5.2); Alkaline Phosphatase 107 IU/L (40-130); Anion Gap 13.2 (5-19); Aspartate Amino Transferase 86 U/L (0-40); Blood Urea Nitrogen 29 mg/dL (8-23); C Reactive Protein 11.5 mg/L (0.0-4.9); Calcium 7.6 mg/dL (8.5-10.5); Carbon Dioxide 31 mmol/L (22-29); Chloride 94 mmol/L (98-107); Creatinine Clr Calc Pharmacy 79.7227; Globulin 4.9 g/dL (1.3-4.6); Glucose 88 mg/dL (65-115); Magnesium 1.5 mg/dL (1.7-2.3); Osmolality Calculated 281 mOsm/kg (285-295); Phosphorus 2.6 mg/dL (2.5-4.5); Potassium 5.2 mmol/L (3.5-5.1); Sodium 133 mmol/L (136-145); Total Bilirubin 0.4 mg/dL (0.15-1.2); Total Protein 7.6 g/dL (6.6-8.7)
[2021-03-20 07:50] LABS: NT Pro B Type Natriuretic Pept 5048 pg/mL (0-125)
--- NOTE | 2021-03-20 09:20 | PC.NURSE ---
Dr jim at bedside Verbal orders recieved and verified IM halidol 1mg Q4H PRN for aggitation ABG stat 10 units regular insulin IVP 1 amp 50
[2021-03-20] MEDS: pantoprazole DR 40 mg Tablet PO (09:26)
[2021-03-20] MEDS: dilTIAZem ER (24HR) 240 mg Capsule PO (09:26)
[2021-03-20] MEDS: aspirin 81 mg EC Tablet PO (09:26)
[2021-03-20] MEDS: clopidogrel 75 mg Tablet PO (09:26)
[2021-03-20] MEDS: metoprolol tartrate 50 mg Tablet 75 MG PO (09:26)
[2021-03-20] MEDS: magnesium sulfate premix 2 GM/50 ML PIGGYBACK IV (09:26)
[2021-03-20] MEDS: folic acid 1 mg Tablet PO (09:26)
[2021-03-20] MEDS: FUROsemide 10 mg/mL SDV 4mL 40 MG IVP ×3 (09:26→21:19)
[2021-03-20] MEDS: apixaban 5 mg Tablet PO ×2 (10:09→21:19)
[2021-03-20] MEDS: isosorbide mononitrate ER 30 mg Tablet PO (10:09)
[2021-03-20] MEDS: dextrose 50% syringe 50 mL IVP (10:10)
[2021-03-20 11:10] LABS: ABG PH Result 7.37 (7.35-7.45); Arterial Blood Gas Hematocrit 35.7 % (42-52); Base Excess ABG 10.4 mmol/L (-2.0-2.0); Blood Gas Sample Site Brachial, right; Blood Gas Sample Type Arterial; Carboxyhemoglobin 0.8 %THgb (0.4-20.1); HGB O2 Sat 96.8 % (95-100); Ionized Calcium Level - ABG 1.2 mmol/L (1.1-1.4); Methemoglobin 0.9 % (0.4-1.5); Oxygen Device NC; Oxygen Saturation ABG 98.4; Potassium Level - ABG 4.5 mmol/L (3.5-5.0); Total Hemoglobin 11.7 g/dL (14-18)
--- NOTE | 2021-03-20 11:15 | PC.NURSE ---
patients IV infiltrated during administration of D50 Dr newman notified instructions to attempt new Iv placement at a later time Unable to administer IV insulin continue to monitor patient
--- NOTE | 2021-03-20 11:22 | PC.SOCIAL ---
IMM Update pg 2 of IMM updated and reviewed w/ patient. Copy provided and copy placed in chart.
--- NOTE | 2021-03-20 13:55 | P.PN_ITS ---
Subjective Subjective: Interval history: S/p C earlier this morning. He complains of SOB, back pain and some chest pain earlier this morning Medications: Reviewed: Yes Vitals/I&O/Wt Last Vital Signs Temp 98.7 F 03/19/21 23:34 Pulse 69 03/20/21 12:55 Resp 21 H 03/20/21 12:55 BP 95/56 03/20/21 12:55 Pulse Ox 93 03/20/21 12:55 03/19/21 03/20/21 03/20/21 22:59 06:59 14:59 Intake Total 1784.242 / 1942.792 960 / 2902.792 770 / 770 Output Total 1150 / 1300 1375 / 2675 350 / 350 Balance 634.242 / 642.792 -415 / 227.792 420 / 420 Physical Exam Narrative: EXAM NARRATIVE: GENERAL: obese man sitting in bed with mild respiratory distress HEENT: No pallor or icterus. NECK: JVD not appreciated. unkempt CARDIOVASCULAR SYSTEM: S1-S2 irregular. No murmur or gallops. RESPIRATORY SYSTEM: Chest clear to auscultation. +wheezes,+ rhonchi. + use of accessory muscles. ABDOMEN: Soft, obese, nontender and nondistended. Normal bowel sounds present. Left lower quadrant hernia+ EXTREMITIES: No cyanosis, 1+ bilateral leg edema. No signs of chronic venous insufficiency. 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 No focal neurological deficits. Data : 03/20/21 06:58 03/20/21 06:58 Micro: Microbiology 03/20/21 10:50 Blood Culture - Preliminary Blood SPECIMEN COLLECTED 03/20/21 10:57 Blood Culture - Preliminary Blood SPECIMEN COLLECTED 03/17/21 Unknown Blood Culture - Preliminary Blood Bacillus sp not b. anthracis A&P Assessment and plan (1) Non-ST elevation MA (NSTEMI): He was noted to have ostial moderate 40 to 50% in stenosis which was eccentric IFR was performed which was 0.93 and not significant. He was also noted to have significant mid and distal calcified PDA lesions. Both this lesion were treated with balloon angioplasty. 80 to 90% lesions were reduced to 40 to 50%. -continue ASA, plavix till discharge (d/t triple therapy). May be discharged on plavis and Eliquis Status: Acute (2) Heart failure with preserved ejection fraction, borderline, class III: appears mildly decompensated -continue lasix 40 mg IV BID; additional 40 mg IV x 1 now. Repeat CXR -I/O charting and daily weight Status: Chronic (3) Atrial fibrillation: Paroxysmal A. fib/flutter -On Eliquis, metoprolol and diltiazem. Status: Acute Qualifiers: Atrial fibrillation type: paroxysmal Qualified Code(s): I48.0 - Paroxys mal atrial fibrillation (4) Hypertension: Status: Chronic Qualifiers: Hypertension type: primary hypertension Qualified Code(s): I10 - Essential (primary) hypertension (5) COPD (chronic obstructive pulmonary disease): Status: Chronic Additional A&P Information Hypomagnesemia Hyperkalemia Obesity Chronic respiratory failure IRVIN Hypertension IRVIN Non compliance Thank you for allowing me to participate in patient's care. Please feel free to call with questions or concerns. Attestations Medical Necessity Statement*: needs hospital stay for CHF Time Spent in Patient Care: 16 - 35 minutes (>than 50% of time spent in counselling and/or direct pt care on unit) . 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
--- NOTE | 2021-03-20 14:24 | PC.NURSE ---
IV obtained after multiple attempts patient tolerated well
--- NOTE | 2021-03-20 15:45 | PM.PN ---
Subjective Subjective: Interval history: Patient was seen early in the morning, he was alert to person, not place, not to time, he was calling out to his mom, was confused, he went to get up to the side of bed as he was complaining of feeling short of breath, was set up to the side of the bed, continue to have episodes of confusion, he did not realize he was in the hospital, was asking for his mom, he was reexamined early in the morning, he is again sitting at the side of bed alert to person, to place, not to time, according to nursing staff, he was asking if the doctor had seen him, that he realized that he was really confused, currently following all commands, Vitals/I&O/Wt Last Vital Signs Temp 98.7 F 03/19/21 23:34 Pulse 69 03/20/21 12:55 Resp 21 H 03/20/21 12:55 BP 95/56 03/20/21 12:55 Pulse Ox 93 03/20/21 12:55 03/20/21 03/20/21 03/20/21 06:59 14:59 22:59 Intake Total 960 / 2902.792 770 / 770 Output Total 1375 / 2675 350 / 350 Balance -415 / 227.792 420 / 420 Physical Exam Const: COMMON NORMALS: no acute distress and patient oriented x3 Resp: COMMON NORMALS: normal respiratory effort, No retractions, No use of accessory muscles and clear to auscultation bilaterally AUSCULTATION: clear to auscultation bilaterally Cardio: COMMON NORMALS: regular rate, regular rhythm, S1 normal heart sound present and S2 normal heart sound present RATE: regular rate RHYTHM: regular rhythm HEART SOUNDS: S1 normal heart sound present and S2 normal heart sound present GI: COMMON NORMALS: Normal to inspection, nondistended, normoactive bowel sounds present, Soft to palpation and non-tender PALPATION: Yes Soft to palpation OTHER: Has an abdominal wall hernia, reducible, Bilateral lower extremity is dusky in appearance, DPPT pulses palpable Extremity: COMMON NORMALS: no pedal edema Neuro: COMMON NORMALS: patient oriented x3 Psych: COMMON NORMALS: mental status grossly normal Data : 03/20/21 06:58 03/20/21 06:58 Micro: Microbiology 03/17/21 Unknown Blood Culture - Preliminary Blood Corynebacterium species Gram positive akil 03/20/21 10:50 Blood Culture - Preliminary Blood SPECIMEN COLLECTED 03/20/21 10:57 Blood Culture - Preliminary Blood SPECIMEN COLLECTED A&P Assessment and plan (1) Unstable angina: Plan -admit to cardiac stepdown unit -6-hour troponin 93.85, delta 9.8 -EKG shows nonspecific ST-T wave changes in inferior leads -Status post left heart cath, PCI -Continue Plavix 75 mg -Continue aspirin 81 mg, atorvastatin 40 mg, metoprolol 50 mg twice daily -Switch back to Eliquis -Cardiology on consult -Cardiac echocardiogram pending 1. Normal left ventricular cavity size and systolic function. Left ventricular ejection fraction is estimated at 55 %. Possible septal hypokinesis. 2. Dilated right ventricle with probably moderately systolic function. 3. Mild to moderate aortic valve stenosis, mean gradient 12.7 mmHg, KERRY 1.1 cm squared. Visually appears to be moderate in some views. 4. Moderate biatrial enlargement. 5. Pulmonary artery pressue estimated at 36 mm Hg. 6. Ukbj-hn-tyknvpsg tricuspid valve regurgitation. 7. When compared to previous study dated 06/07/2019, right ventricula systolic function may have decreased. -lasix 40mg q12h -ABG results pending, start BiPAP -Full code -Heparin for DVT prophylaxis NSTEMI, as above COPD, 3 L Atrial fibrillation, rate controlled, hold Eliquis, continue heparin drip, metoprolol hypertension, continue meds Periumbilical hernia, continue to monitor Bilateral lower extremity dusky in appearance, DPPT pulses palpable Altered mental status, secondary to elevated PCO2, Rocephin for possible UTI Status: Acute (2) Non-ST elevation IN (NSTEMI): Status: Acute (3) COPD (chronic obstructive pulmonary disease): Status: Chronic (4) Hepatitis C: Status: Acute (5) Atrial fibrillation: Status: Acute Qualifiers: Atrial fibrillation type: paroxysmal Qualified Code(s): I48.0 - Paroxysmal atrial fibrillation (6) Acute systolic heart failure: Status: Acute Attestations Medical Necessity Statement*: Patient requires hospitalization for CAD, shortness of breath, Coding Level of Care Code Acute 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
--- NOTE | 2021-03-20 15:57 | XRR_ITS ---
ROCEDURE INFORMATION: Exam: XR Chest Exam date and time: 03/20/2021 3:57 PM Age: 75 years old Clinical indication: Shortness of breath; Additional info: SOB TECHNIQUE: Imaging protocol: XR of the chest. Views: 1 view. COMPARISON: 1. CR XR chest 1V portable [id number] 03/17/2021 2:34 PM 2. CR XR chest 2V* [id number] 07/01/2020 8:56:17 AM 3. CR XR chest 1V portable [id number] 08/12/2019 12:15:34 AM 4. CR XR chest 1V portable [id number] 08/05/2019 11:30:[address] chest abd pel wo con 07/13/2019 7:36:50 PM FINDINGS: Lungs: 2.2 cm right lower lobe nodule. Minimal coarse reticular opacity in the right lung base likely represent scarring and/or atelectasis. No consolidation. Left lung is clear. Pleural spaces: Unremarkable. No pleural effusion. No pneumothorax. Heart/Mediastinum: There is mild enlargement of the cardiac silhouette. Bones/joints: Bones are unremarkable. XR/XR chest 1V portable [id number] IMPRESSION: 1. No acute findings. 2. 2 cm right lung nodule. This is increased in size since 07/01/2020 and is new since 2019. Recommend nonemergent follow-up chest CT.
[2021-03-20 16:15] LABS: ABG PCO2 65.9 mmHg (35-45)
--- NOTE | 2021-03-20 16:32 | PHA.FALL ---
A Pharmacy Consult Was Conducted For Robert Torres Due To: Marks Fall Scale Risk Level: High Fall Risk On 03/20/21 08:00 And A Medication Fall Risk Score Greater Than 10. The Recommendations Are As Follows: High Risk: Xanax: bedtime for sleep.. could possibly look at switching this to temazepam haldol: only prn Metoprolol: needed Moderate Risk: diltiazem: needed
[2021-03-20] MEDS: ipratropium-albuterol 3 mL Neb INHALATION (16:40)
[2021-03-20] MEDS: cefTRIAXone 1,000 MG in sodium chloride 0.9% (plus) 50 ML 100 MG IV (16:48)
[2021-03-20] MEDS: nystatin powder 15 gm Btl 1 APPLIC TOPICAL (18:03)
--- NOTE | 2021-03-20 19:15 | PC.NURSE ---
Shift Note Frequent safety and comfort rounds continue. Orders and/or nursing care completed as indicated. Patient monitored for response to intervention and treatment(s). Education provided includes new medications and antibiotics. Patient and/or product representative verbalized with reinforcement needed. Will continue to monitor.
[2021-03-20] MEDS: metoprolol tartrate 50 mg Tablet PO (21:18)
[2021-03-20] MEDS: atorvastatin 40 mg Tablet PO (21:18)
[2021-03-21] VITALS (22 sets, daily range): BP systolic 95–130; BP diastolic 54–74; PULSE 50–85; RESP 13–25; TEMP 35.8–36.6; O2SAT 90–100
--- NOTE | 2021-03-21 02:34 | PC.NURSE ---
Around 2300 patient placed on bipap. Patient stated they felt unable to breath and felt as if they were suffocating. Unable to tolerate bipap. Notified Dr. Abernathy. Dr. Abernathy to put in orders
[2021-03-21] MEDS: aspirin 81 mg EC Tablet PO (10:04)
[2021-03-21] MEDS: folic acid 1 mg Tablet PO (10:07)
[2021-03-21] MEDS: clopidogrel 75 mg Tablet PO (10:07)
[2021-03-21] MEDS: pantoprazole DR 40 mg Tablet PO (10:07)
[2021-03-21] MEDS: apixaban 5 mg Tablet PO ×2 (10:07→20:50)
[2021-03-21] MEDS: metoprolol tartrate 50 mg Tablet PO ×2 (10:08→20:50)
[2021-03-21] MEDS: FUROsemide 10 mg/mL SDV 4mL 40 MG IVP ×2 (10:08→20:49)
[2021-03-21] MEDS: dilTIAZem ER (24HR) 240 mg Capsule PO (10:08)
[2021-03-21] MEDS: isosorbide mononitrate ER 30 mg Tablet PO (10:08)
--- NOTE | 2021-03-21 12:30 | PC.NURSE ---
called Lab to verify if pt has gotthen his blood draws? Per drop crew laborer, pt has refused blood draws. Informed lab to let us know so we are aware and to educate pt and we will inform the doctor.
--- NOTE | 2021-03-21 12:48 | P.PN_ITS ---
Subjective Subjective: Interval history: He continues to complain of SOB. Medications: Reviewed: Yes Vitals/I&O/Wt Last Vital Signs Temp 97.5 F L 03/21/21 12:00 Pulse 60 03/21/21 12:00 Resp 24 H 03/21/21 12:00 BP 130/60 03/21/21 12:00 Pulse Ox 98 03/21/21 12:00 03/20/21 03/21/21 03/21/21 22:59 06:59 14:59 Intake Total 650 / 1420 200 / 200 Output Total 350 / 700 550 / 550 Balance 300 / 720 -350 / -350 Physical Exam Narrative: EXAM NARRATIVE: GENERAL: obese man sitting in bed with mild respiratory distress HEENT: No pallor or icterus. NECK: JVD not appreciated. unkempt CARDIOVASCULAR SYSTEM: S1-S2 irregular. No murmur or gallops. RESPIRATORY SYSTEM: Chest clear to auscultation. +wheezes,+ rhonchi. + use of accessory muscles. ABDOMEN: Soft, obese, nontender and nondistended. Normal bowel sounds present. Left lower quadrant hernia+ EXTREMITIES: No cyanosis, 2+ bilateral leg edema. No signs of chronic venous insufficiency. 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 No focal neurological deficits. Data : 03/20/21 06:58 03/20/21 06:58 Micro: Microbiology 03/20/21 10:50 Blood Culture - Preliminary Blood NEGATIVE TO DATE 03/20/21 10:57 Blood Culture - Preliminary Blood NEGATIVE TO DATE 03/17/21 Unknown Blood Culture - Preliminary Blood Corynebacterium species Gram positive akil A&P Assessment and plan (1) Non-ST elevation SC (NSTEMI): He was noted to have ostial moderate 40 to 50% in stenosis which was eccentric IFR was performed which was 0.93 and not significant. He was also noted to have significant mid and distal calcified PDA lesions. Both this lesion were treated with balloon angioplasty. 80 to 90% lesions were reduced to 40 to 50%. -continue ASA, plavix till discharge (d/t triple therapy). May be discharged on plavis and Eliquis Status: Acute (2) Heart failure with preserved ejection fraction, borderline, class III: appears mildly decompensated -continue lasix 40 mg IV BID;No labs today -I/O charting and daily weight Status: Chronic (3) Atrial fibrillation: Paroxysmal A. fib/flutter -On Eliquis, metoprolol and diltiazem. Status: Acute Qualifiers: Atrial fibrillation type: paroxysmal Qualified Code(s): I48.0 - Paroxysmal atrial fibrillation (4) Hypertension: Status: Chronic Qualifiers: Hypertension type: primary hypertension Qualified Code(s): I10 - Essential (primary) hypertension (5) COPD (chronic obstructive pulmonary disease): Being treated for COPD exacerbation per primary Status: Chronic Additional A&P Information Hypomagnesemia Hyperkalemia Obesity Chronic respiratory failure IRVIN Hypertension IRVIN Non compliance Thank you for allowing me to participate in patient's care. Please feel free to call with questions or concerns. Attestations Medical Necessity Statement*: As per primary team Time Spent in Patient Care: 16 - 35 minutes (>than 50% of time spent in counselling and/or direct pt care on unit) . 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
[2021-03-21] MEDS: ipratropium-albuterol 3 mL Neb INHALATION ×2 (12:54→21:46)
--- NOTE | 2021-03-21 13:05 | PC.NURSE ---
pt is on Bipap FiO2 of 30%
[2021-03-21 15:08] LABS: Add Urine Microscopic? NO; Charge for UA Resulting for Rev
--- NOTE | 2021-03-21 15:21 | PC.OT ---
OT EVALUATION ATTEMPTED TWICE; PATIENT WAS SLEEPING SOUNDLY THE FIRST ATTEMPT AND POLITELY DECLINED AT THE SECOND ATTEMPT.
[2021-03-21 15:46] LABS: Bilirubin Urine Neg (Negative); Blood Urine Neg (Negative); Glucose Urine UA Norm (Normal); Ketones Urine Negative (Negative); Leukocyte Esterase Urine Negative (Negative); Nitrate Urine Negative (Negative); Protein Urine Neg (Negative); Urine Appearance Clear (CLEAR); Urine Color Yellow (Yellow); Urobilinogen Urine Norm (Negative); pH Urine 5 (5-7)
[2021-03-21] MEDS: cefTRIAXone 1,000 MG in sodium chloride 0.9% (plus) 50 ML 100 MG IV (16:12)
[2021-03-21 16:48] LABS: Basophils % 0.3 %; Eosinophils % 0.7 %; Hematocrit 25.7 % (42.0-52.0); Hemoglobin 9.5 g/dL (11.7-16.6); Lymphocytes % 12.9 %; Mean Corpuscular Hemoglobin 37.5 pg (28.0-34.0); Mean Corpuscular Volume 101.6 fl (80-94); Mean Platelet Volume 12.6 fL (7.4-10.4); Monocytes % 2.6 %; Neutrophils % 83.1 %; Platelet Count 176 10^3/cmm (130-400); Red Blood Count 2.53 10^6/uL (4.1-5.3); Red Cell Distribution Width 13.8 % (12.1-15.1); White Blood Count 9.8 10^3/uL (4.0-10.0)
[2021-03-21 16:49] LABS: Eosinophils # 0.1 10^3/uL (0.0-0.8); Lymphocytes # 1.3 10^3/uL (0.8-4.8); Monocytes # 0.3 10^3/uL (0.2-0.9); Neutrophils # 8.16 10^3/uL (1.8-7.7); Nucleated Red Blood Cells % 0 %
[2021-03-21] MEDS: oxyCODONE-APAP 5-325 mg Tablet 1 TAB PO (16:55)
--- NOTE | 2021-03-21 17:20 | PM.PN ---
Subjective Subjective: Interval history: Patient was seen and examined this morning, continue to complain of SOB.He was also complaining of back pain.BMP pending as he is a hard stick. Medications: Reviewed: Yes Vitals/I&O/Wt Last Vital Signs Temp 96.6 F L 03/21/21 16:00 Pulse 60 03/21/21 16:00 Resp 19 H 03/21/21 16:55 BP 96/54 03/21/21 16:00 Pulse Ox 100 03/21/21 16:55 03/21/21 03/21/21 03/21/21 06:59 14:59 22:59 Intake Total 200 / 200 168 / 368 Output Total 1400 / 1400 100 / 1500 Balance -1200 / -1200 68 / -1132 Physical Exam Const: COMMON NORMALS: patient oriented x3 HENMT: COMMON NORMALS: normocephalic and atraumatic HEAD & SCALP: normocephalic and atraumatic Resp: EFFORT & INSPECTION: Yes symmetric chest movement OTHER: Occasional wheezing in both lungs quintana Cardio: COMMON NORMALS: regular rate, regular rhythm, S1 normal heart sound present, S2 normal heart sound present, No gallops present (Cardio), No murmurs present (Cardio), No rub (Cardio) and Peripheral pulses 2+ throughout RATE: regular rate RHYTHM: regular rhythm HEART SOUNDS: S1 normal heart sound present and S2 normal heart sound present PERIPHERAL PULSES: Peripheral pulses 2+ throughout GI: COMMON NORMALS: Normal to inspection, nondistended, normoactive bowel sounds present, Soft to palpation, non-tender, No hepatosplenomegaly present and no masses AUSCULTATION: Yes normoactive bowel sounds PALPATION: Yes Soft to palpation and Yes No hepatosplenomegaly present RECTAL EXAM: Yes deferred Extremity: NARRATIVE EXTREMITY EXAM: 2+ B/L L/E Pitting edema Neuro: COMMON NORMALS: patient oriented x3 Data : 03/21/21 16:40 03/20/21 06:58 Micro: Microbiology 03/20/21 10:50 Blood Culture - Preliminary Blood NEGATIVE TO DATE 03/20/21 10:57 Blood Culture - Preliminary Blood NEGATIVE TO DATE 03/17/21 Unknown Blood Culture - Preliminary Blood Corynebacterium species Gram positive akil A&P Assessment and plan (1) Unstable angina: NSTEMI -6-hour troponin 93.85, delta 9.8 -EKG shows nonspecific ST-T wave changes in inferior leads -Cardiac echocardiogram pending 1. Normal left ventricular cavity size and systolic function. Left ventricular ejection fraction is estimated at 55 %. Possible septal hypokinesis. 2. Dilated right ventricle with probably moderately systolic function. 3. Mild to moderate aortic valve stenosis, mean gradient 12.7 mmHg, KERRY 1.1 cm squared. Visually appears to be moderate in some views. 4. Moderate biatrial enlargement. 5. Pulmonary artery pressue estimated at 36 mm Hg. 6. Xsop-[id number] tricuspid valve regurgitation. 7. When compared to previous study dated 06/07/2019, right ventricula systolic function may have decreased. -Continue aspirin 81 mg, plavix , 75 mg po daily , atorvastatin 40 mg, metoprolol 50 mg twice daily -On Eliquis -lasix 40mg q12h -ABG results pending, start BiPAP S/P CAG And PTCA ( ostial moderate 40 to 50% in stenosis which was eccentric IFR was performed which was 0.93 and not significant. He was also noted to have significant mid and distal calcified PDA lesions. Both this lesion were treated with balloon angioplasty. 80 to 90% lesions were reduced to 40 to 50%.) continue ASA, plavix till discharge (d/t triple therapy). Will discharge on plavis and Eliquis -Heparin for DVT prophylaxis COPD, 3 L Atrial fibrillation, rate controlled, on Eliquis, metoprolol hypertension, continue meds Periumbilical hernia, continue to monitor Bilateral lower extremity dusky in appearance, DPPT pulses palpable Altered mental status, secondary to elevated PCO2, Rocephin for possible UTI Status: Acute (2) Non-ST elevation [place] (NSTEMI): Status: Acute (3) COPD (chronic obstructive pulmonary disease): Solumedrol 60 mg I.V BID dUO NEBS Status: Chronic (4) Hepatitis C: Status: Acute (5) Atrial fibrillation: Status: Acute Qualifiers: Atrial fibrillation type: paroxysmal Qualified Code(s): I48.0 - Paroxysmal atrial fibrillation (6) Acute systolic heart failure: Status: Acute Attestations Medical Necessity Statement*: Patient needs to be in hospital for the management of heart failure , COPD Coding Level of Care Code Acute Pattern Developer for [facility] Fwd Exam Detailed Diagnoses Unstable angina I20.0 Non-ST elevation [place] (NSTEMI) I21.4 COPD (chronic obstructive pulmonary disease) J44.9 Hepatitis C B19.20 Atrial fibrillation I48.0 Atrial fibrillation type: paroxysmal Acute systolic heart failure I50.21
--- NOTE | 2021-03-21 19:48 | PC.NURSE ---
Shift Note Frequent safety and comfort rounds continue. Orders and/or nursing care completed as indicated. Patient monitored for response to intervention and treatment(s). Pt had episode of coarse and inspiratory and expiratory wheezes. Notified RT Mihir. Bipap applied. Notified Dr. Pt has been stuck multiple times for blood draw for his cbc, bmp all morning. CAMI guide IV acces attempted x2 which was unsuccessful. Dr. Arreola in room during iv access attempt. we only got a 1 ml of blood for cbc, BMP is pending. Called ER to assist in getting IV and Dr. Arreola will also help assist this evening if needed. Pt care RN Arabella notified on this. Pt reported of upper back pain. Education provided includes one time order for oxycodone and heat pad, solu-medrol IVP. Patient and/or hospital insurance representative need reinforcement. Will continue to monitor.
[2021-03-21] MEDS: atorvastatin 40 mg Tablet PO (20:50)
[2021-03-21] MEDS: morphine 4 mg/mL SDV 1 mL 2 MG IVP (20:51)
[2021-03-21 21:58] LABS: Anion Gap 12.9 (5-19); Blood Urea Nitrogen 36 mg/dL (8-23); Calcium 7.7 mg/dL (8.5-10.5); Carbon Dioxide 31 mmol/L (22-29); Chloride 93 mmol/L (98-107); Glucose 191 mg/dL (65-115); Magnesium 1.7 mg/dL (1.7-2.3); Osmolality Calculated 287 mOsm/kg (285-295); Potassium 4.9 mmol/L (3.5-5.1); Sodium 132 mmol/L (136-145)
[2021-03-22] VITALS (22 sets, daily range): BP systolic 107–134; BP diastolic 70–92; PULSE 54–98; RESP 16–23; TEMP 36.6–36.9; O2SAT 92–100
[2021-03-22] MEDS: ipratropium-albuterol 3 mL Neb INHALATION ×7 (00:23→23:35)
[2021-03-22 04:08] LABS: Hematocrit 28.6 % (42.0-52.0); Hemoglobin 9.3 g/dL (11.7-16.6); Lymphocytes # 1.3 10^3/uL (0.8-4.8); Lymphocytes % 17.6 %; Mean Corpuscular HGB Conc 32.5 g/dL (30.0-36.0); Mean Corpuscular Hemoglobin 33.3 pg (28.0-34.0); Mean Corpuscular Volume 102.5 fl (80-94); Mean Platelet Volume 11.4 fL (7.4-10.4); Monocytes # 0.4 10^3/uL (0.2-0.9); Monocytes % 5.9 %; Neutrophils # 5.67 10^3/uL (1.8-7.7); Neutrophils % 76.2 %; Nucleated Red Blood Cells % 0 %; Platelet Count 148 10^3/cmm (130-400); Red Blood Count 2.79 10^6/uL (4.1-5.3); Red Cell Distribution Width 13.4 % (12.1-15.1); White Blood Count 7.4 10^3/uL (4.0-10.0)
[2021-03-22 04:29] LABS: ABG PCO2 55.5 mmHg (35-45); ABG PH Result 7.44 (7.35-7.45); Alveolar-Arterial Oxygen Gradi 3.5 mmHg (5-10); Arterial Blood Gas Hematocrit 32.4 % (42-52); Base Excess ABG 11.5 mmol/L (-2.0-2.0); Blood Gas Allen Test Pos; Blood Gas Operator Identificat JB; Blood Gas Sample Site Radial, right; Blood Gas Sample Type Arterial; HCO3 ABG 37.5 mmol/L (22-26); HGB O2 Sat 85.8 % (95-100); Ionized Calcium Level - ABG 1.1 mmol/L (1.1-1.4); Oxygen Saturation ABG 87.5; PO2 ABG 55.5 mmHg (80.0-100.0); Potassium Level - ABG 4.8 mmol/L (3.5-5.0); Total Hemoglobin 10.6 g/dL (14-18)
[2021-03-22 04:30] LABS: Oxygen Device ROOM AIR
[2021-03-22 04:40] LABS: Magnesium 1.7 mg/dL (1.7-2.3); Phosphorus 1.7 mg/dL (2.5-4.5)
[2021-03-22 04:44] LABS: Anion Gap 10.9 (5-19); Blood Urea Nitrogen 36 mg/dL (8-23); Calcium 7.5 mg/dL (8.5-10.5); Carbon Dioxide 31 mmol/L (22-29); Chloride 94 mmol/L (98-107); Glucose 174 mg/dL (65-115); NT Pro B Type Natriuretic Pept 1608 pg/mL (0-125); Osmolality Calculated 285 mOsm/kg (285-295); Potassium 4.9 mmol/L (3.5-5.1); Sodium 131 mmol/L (136-145)
[2021-03-22 04:51] LABS: D Dimer 1.82 ug/mIFEU (0-0.59)
[2021-03-22] MEDS: pantoprazole DR 40 mg Tablet PO (08:44)
[2021-03-22] MEDS: folic acid 1 mg Tablet PO (08:44)
[2021-03-22] MEDS: metoprolol tartrate 25 mg Tablet PO ×2 (08:44→20:32)
[2021-03-22] MEDS: isosorbide mononitrate ER 30 mg Tablet PO (08:45)
[2021-03-22] MEDS: FUROsemide 10 mg/mL SDV 4mL 40 MG IVP (08:46)
--- NOTE | 2021-03-22 09:05 | PC.SOCIAL ---
IMM Update pg 2 of IMM updated and reviewed w/ patient. Copy provided and copy placed in chart.
--- NOTE | 2021-03-22 09:10 | PC.CHAP ---
Pastoral Care Encounter/Spiritual Assessment Type of Contact [] Declined asset accountant visit [] Patient/Family/Request visit [] Outpatient visit [] Follow-up visit [] Physician referral [] Code/Alert [x] Routine visit [] Staff referral [] Actively dying [] Patient sleeping [] Family support [] [] Out of room [] Palliative care [] [] Receiving care in room [] Pre-surgical visit [] Trauma [] Long length of stay [] ICU visit [] Other: Relational/Emotional Strength [x] Patient feels connected with others/family/visitors/staff [] Distress [] Loneliness/isolation [] Abandonment Spirituality of Patient [x] Person of Karen [] Attends Mosque of their Karen [] Believes in Prayer [] Reads Bible or Temple materials [] There are Spiritual issues to be addressed [employer] Programmer Analyst Interventions [x] Prayer [x] Active listening [x] Non-anxious presence [x] Spiritual/emotional support [] Crisis/trauma care [] Spiritual counseling [] Bereavement support [] Provided bereavement packet [] Provided Bible/devotional materials [] Provided toy/stuffed animal, coloring book to patient or family member [] Provided Communion [] Anointing/[place] [] Salvation [x] Completed spiritual assessment [] Other: Impact on Illness or Injury [] Angry [] Fearful [] Anxious [] Often cries [] Exhaustion [] Unable to work [] Unable to attend bahai [] Unable to walk/stand [] Unable to read [] Unable to drive [] Unable to eat/drink [] Unable to sleep [] Unable to be with family [] Patient intubated [] Other: Summary Pt was sitting on edge of bed eating breakfast when [employer] Programmer Analyst arrived. He indicated he is feeling pretty good but is in pain due to his side (he did not explain further). He stated the doctor has told him it is too high of a risk to do surgery. He has a son who is checking in on him and a grand daughter. As we were speaking the nurse came in so asset accountant cut visit short. Pt did ask for prayer. Time spent with patient 10m
[2021-03-22] MEDS: clopidogrel 75 mg Tablet PO (09:59)
[2021-03-22] MEDS: apixaban 5 mg Tablet PO ×2 (09:59→20:32)
[2021-03-22] MEDS: dilTIAZem ER (24HR) 180 mg Capsule PO (09:59)
--- NOTE | 2021-03-22 13:11 | PM.PN ---
Subjective Subjective: Interval history: He complains of feeling tired. Medications: Reviewed: Yes Vitals/I&O/Wt Last Vital Signs Temp 98.3 F 03/22/21 04:00 Pulse 81 03/22/21 12:31 Resp 20 H 03/22/21 12:31 BP 132/70 03/22/21 04:00 Pulse Ox 97 03/22/21 12:31 03/21/21 03/22/21 03/22/21 22:59 06:59 14:59 Intake Total 528 / 728 460 / 1188 360 / 360 Output Total 300 / 1700 850 / 2550 600 / 600 Balance 228 / -972 -390 / -1362 -240 / -240 Physical Exam Narrative: EXAM NARRATIVE: GENERAL: obese man sitting in bed with mild respiratory distress HEENT: No pallor or icterus. NECK: JVD not appreciated. CARDIOVASCULAR SYSTEM: S1-S2 irregular. No murmur or gallops. RESPIRATORY SYSTEM: Chest clear to auscultation. + intermittent rhonchi. ABDOMEN: Soft, obese, nontender and nondistended. Normal bowel sounds present. Left lower quadrant hernia+ EXTREMITIES: No cyanosis, 2+ bilateral leg edema. 2+ radial; no significant bruising or hematoma PROCESSOR SOLID PROPELLANT: Patient is alert oriented ?3. No focal neurological deficits. Data : 03/22/21 03:51 03/22/21 03:51 Micro: Microbiology 03/21/21 14:50 Urine Culture - Preliminary Urine,Voided 03/20/21 10:50 Blood Culture - Preliminary Blood NEGATIVE TO DATE 03/20/21 10:57 Blood Culture - Preliminary Blood NEGATIVE TO DATE A&P Assessment and plan (1) Non-ST elevation [place] (NSTEMI): He was noted to have ostial moderate 40 to 50% in stenosis which was eccentric IFR was performed which was 0.93 and not significant. He was also noted to have significant mid and distal calcified PDA lesions. Both this lesion were treated with balloon angioplasty. 80 to 90% lesions were reduced to 40 to 50%. -continue plavix and Eliquis. May stop ASA Status: Acute (2) Heart failure with preserved ejection fraction, borderline, class III: -change to lasix 40 mg PO BID; -I/O charting and daily weight Status: Chronic (3) Atrial fibrillation: Paroxysmal A. fib/flutter -On Eliquis, metoprolol and diltiazem. -dose decreased d/t bradycardia Status: Acute Qualifiers: Atrial fibrillation type: paroxysmal Qualified Code(s): I48.0 - Paroxysmal atrial fibrillation (4) Hypertension: Status: Chronic Qualifiers: Hypertension type: primary hypertension Qualified Code(s): I10 - Essential (primary) hypertension (5) COPD (chronic obstructive pulmonary disease): Being treated for COPD exacerbation per primary Status: Chronic Additional A&P Information Anemia: No active bleed Obesity Chronic respiratory failure IRVIN Hypertension IRVIN Non compliance Thank you for allowing me to participate in patient's care. Please feel free to call with questions or concerns. Attestations Medical Necessity Statement*: As per primary team Time Spent in Patient Care: 16 - 35 minutes (>than 50% of time spent in counselling and/or direct pt care on unit). Coding Level of Care Code Acute International Editorial Producer for [facility] Diagnoses Non-ST elevation [place] (NSTEMI) I21.4 Heart failure with preserved ejection fraction, borderline, class III I50.30 Atrial fibrillation I48.0 Atrial fibrillation type: paroxysmal Hypertension I10 Hypertension type: primary hypertension COPD (chronic obstructive pulmonary disease) J44.9
[2021-03-22] MEDS: FUROsemide 40 mg Tablet PO (15:17)
[2021-03-22] MEDS: morphine 4 mg/mL SDV 1 mL 2 MG IVP ×2 (15:17→20:33)
[2021-03-22] MEDS: cefTRIAXone 1,000 MG in sodium chloride 0.9% (plus) 50 ML 100 MG IV (18:20)
[2021-03-22] MEDS: acetaminophen 325 mg Tablet 650 MG PO (18:32)
--- NOTE | 2021-03-22 18:54 | P.PN_ITS ---
Subjective Subjective: Interval history: Patient was seen and examined this morning, says that his shortness of breath is improved Have good urine output with Lasix negative -1.3 L. Not very compliant with BiPAP. Medications: Reviewed: Yes Vitals/I&O/Wt Last Vital Signs Temp 97.8 F 03/22/21 08:00 Pulse 85 03/22/21 15:52 Resp 20 H 03/22/21 15:52 BP 130/78 03/22/21 13:21 Pulse Ox 97 03/22/21 15:52 03/22/21 03/22/21 03/22/21 06:59 14:59 22:59 Intake Total 460 / 1188 1068 / 1068 Output Total 850 / 2550 900 / 900 Balance -390 / -1362 168 / 168 Physical Exam Const: COMMON NORMALS: patient oriented x3 HENMT: COMMON NORMALS: normocephalic and atraumatic HEAD & SCALP: normocephalic and atraumatic Resp: EFFORT & INSPECTION: Yes symmetric chest movement Cardio: COMMON NORMALS: regular rate, regular rhythm, S1 normal heart sound present, S2 normal heart sound present, No gallops present (Cardio), No murmurs present (Cardio), No rub (Cardio) and Peripheral pulses 2+ throughout RATE: regular rate RHYTHM: regular rhythm HEART SOUNDS: S1 normal heart sound present and S2 normal heart sound present PERIPHERAL PULSES: Peripheral pulses 2+ throughout GI: COMMON NORMALS: Normal to inspection, nondistended, normoactive bowel sounds present, Soft to palpation, non-tender, No hepatosplenomegaly present and no masses AUSCULTATION: Yes normoactive bowel sounds PALPATION: Yes Soft to palpation and Yes No hepatosplenomegaly present RECTAL EXAM: Yes deferred Extremity: NARRATIVE EXTREMITY EXAM: 2+ B/L L/E Pitting edema Neuro: COMMON NORMALS: patient oriented x3 Data : 03/22/21 03:51 03/22/21 03:51 Micro: Microbiology 03/17/21 16:30 Blood Culture - Final Blood NO GROWTH AFTER 5 DAYS 03/21/21 14:50 Urine Culture - Preliminary Urine,Voided A&P Assessment and plan (1) Unstable angina: NSTEMI -6-hour troponin 93.85, delta 9.8 -EKG shows nonspecific ST-T wave changes in inferior leads -Cardiac echocardiogram pending 1. Normal left ventricular cavity size and systolic function. Left ventricular ejection fraction is estimated at 55 %. Possible septal hypokinesis. 2. Dilated right ventricle with probably moderately systolic function. 3. Mild to moderate aortic valve stenosis, mean gradient 12.7 mmHg, KERRY 1.1 cm squared. Visually appears to be moderate in some views. 4. Moderate biatrial enlargement. 5. Pulmonary artery pressue estimated at 36 mm Hg. 6. Xcpl-eu-[id number] tricuspid valve regurgitation. 7. When compared to previous study dated 06/07/2019, right ventricula systolic function may have decreased. -Continue aspirin 81 mg, plavix , 75 mg po daily , atorvastatin 40 mg, metoprolol 50 mg twice daily -On Eliquis -lasix 40mg q12h -ABG results pending, start BiPAP S/P CAG And PTCA ( ostial moderate 40 to 50% in stenosis which was eccentric IFR was performed which was 0.93 and not significant. He was also noted to have significant mid and distal calcified PDA lesions. Both this lesion were treated with balloon angioplasty. 80 to 90% lesions were reduced to 40 to 50%.) continue ASA, plavix till discharge (d/t triple therapy). Will discharge on plavis and Eliquis -Heparin for DVT prophylaxis hypertension, continue meds Periumbilical hernia, continue to monitor Bilateral lower extremity dusky in appearance, DPPT pulses palpable Altered mental status, secondary to elevated PCO2, Rocephin for possible UTI Status: Acute (2) Non-ST elevation [place] (NSTEMI): Status: Acute (3) COPD (chronic obstructive pulmonary disease): On 3Ls home oxygen Solumedrol 60 mg I.V BID dUO NEBS Status: Chronic (4) Hepatitis C: Status: Acute (5) Atrial fibrillation: Atrial fibrillation, rate controlled, on metoprolol as well as Cardizem Continue Eliquis Status: Acute Qualifiers: Atrial fibrillation type: paroxysmal Qualified Code(s): I48.0 - Paroxysmal atrial fibrillation (6) Acute systolic heart failure: Initially on lasix 40 mg IV every 12 hours Daily. Has been switched to Lasix 40 mg p.o. twice daily Status: Acute Attestations Medical Necessity Statement*: Patient needs to be in hospital for management of heart failure, COPD,s/p PTCA Coding Level of Care Code Acute Funeral Director/Embalmer for [facility] Fwd Diagnoses Unstable angina I20.0 Non-ST elevation [place] (NSTEMI) I21.4 COPD (chronic obstructive pulmonary disease) J44.9 Hepatitis C B19.20 Atrial fibrillation I48.0 Atrial fibrillation type: paroxysmal Acute systolic heart failure I50.21
[2021-03-22] MEDS: atorvastatin 40 mg Tablet PO (20:32)
[2021-03-22] MEDS: zolpidem 5 mg Tablet PO (21:25)
[2021-03-22] MEDS: LORazepam 2 mg/mL INJ 1 mL 1 MG IVP (21:25)
[2021-03-23] VITALS (24 sets, daily range): BP systolic 111–153; BP diastolic 76–106; PULSE 76–119; RESP 18–28; TEMP 36.3–36.7; O2SAT 88–100
--- NOTE | 2021-03-23 01:23 | PC.NURSE ---
Patient wakes up from a sound sleep requesting pain med telling nurses each time it is due. He also states that nothing is working to ease his pain.
[2021-03-23] MEDS: morphine 4 mg/mL SDV 1 mL 2 MG IVP ×5 (01:29→23:26)
[2021-03-23] MEDS: acetaminophen 325 mg Tablet 650 MG PO ×2 (01:30→21:37)
[2021-03-23] MEDS: ipratropium-albuterol 3 mL Neb INHALATION ×5 (03:54→23:20)
[2021-03-23 05:16] LABS: Basophils % 0.2 %; Hematocrit 29.9 % (42.0-52.0); Hemoglobin 10.2 g/dL (11.7-16.6); Lymphocytes % 5.1 %; Mean Corpuscular HGB Conc 34.1 g/dL (30.0-36.0); Mean Corpuscular Hemoglobin 35.7 pg (28.0-34.0); Mean Corpuscular Volume 104.5 fl (80-94); Mean Platelet Volume 11.7 fL (7.4-10.4); Monocytes # 0.9 10^3/uL (0.2-0.9); Monocytes % 4.3 %; Neutrophils # 18.33 10^3/uL (1.8-7.7); Neutrophils % 89.8 %; Nucleated Red Blood Cells % 0 %; Platelet Count 190 10^3/cmm (130-400); Red Blood Count 2.86 10^6/uL (4.1-5.3); Red Cell Distribution Width 13.5 % (12.1-15.1); White Blood Count 20.4 10^3/uL (4.0-10.0)
[2021-03-23 05:50] LABS: Magnesium 1.8 mg/dL (1.7-2.3); Phosphorus 2.2 mg/dL (2.5-4.5)
[2021-03-23 05:53] LABS: Anion Gap 16.7 (5-19); Blood Urea Nitrogen 43 mg/dL (8-23); Calcium 7.8 mg/dL (8.5-10.5); Carbon Dioxide 27 mmol/L (22-29); Chloride 89 mmol/L (98-107); Glucose 287 mg/dL (65-115); NT Pro B Type Natriuretic Pept 2148 pg/mL (0-125); Osmolality Calculated 285 mOsm/kg (285-295); Potassium 5.7 mmol/L (3.5-5.1); Sodium 127 mmol/L (136-145)
--- NOTE | 2021-03-23 07:50 | PC.NURSE ---
Pt sitting on the side of the bed eating breakfast and talking to staff. Pt had no c/o pain or discomfort at the present time. Pt requested more muffins and milk. Call light in reach. Will cont to monitor.
[2021-03-23] MEDS: dilTIAZem ER (24HR) 180 mg Capsule PO (10:03)
[2021-03-23] MEDS: folic acid 1 mg Tablet PO (10:04)
[2021-03-23] MEDS: apixaban 5 mg Tablet PO ×2 (10:04→21:39)
[2021-03-23] MEDS: isosorbide mononitrate ER 30 mg Tablet PO (10:04)
[2021-03-23] MEDS: metoprolol tartrate 25 mg Tablet PO ×2 (10:04→21:40)
[2021-03-23] MEDS: clopidogrel 75 mg Tablet PO (10:04)
[2021-03-23] MEDS: pantoprazole DR 40 mg Tablet PO (10:05)
[2021-03-23 11:10] LABS: Anion Gap 16.8 (5-19); Blood Urea Nitrogen 41 mg/dL (8-23); Calcium 7.5 mg/dL (8.5-10.5); Carbon Dioxide 24 mmol/L (22-29); Chloride 89 mmol/L (98-107); Glucose 463 mg/dL (65-115); Osmolality Calculated 288 mOsm/kg (285-295); Potassium 5.8 mmol/L (3.5-5.1); Sodium 124 mmol/L (136-145)
--- NOTE | 2021-03-23 13:19 | PM.PN ---
Subjective Subjective: Interval history: Patient was seen and examined this morning, says he feels tired, also had poor sleep in the last couple of nights.He is also complaining of lower abdominal pain. Medications: Reviewed: Yes Vitals/I&O/Wt Last Vital Signs Temp 98.1 F 03/23/21 04:00 Pulse 98 03/23/21 08:08 Resp 28 H 03/23/21 08:00 BP 137/92 03/23/21 08:00 Pulse Ox 92 03/23/21 08:00 03/22/21 03/23/21 03/23/21 22:59 06:59 14:59 Intake Total 0 / 1977 1120 / 1120 Output Total 280 / 1180 700 / 700 Balance 630 / 798 420 / 420 Physical Exam Const: COMMON NORMALS: patient oriented x3 HENMT: COMMON NORMALS: normocephalic and atraumatic HEAD & SCALP: normocephalic and atraumatic Resp: EFFORT & INSPECTION: Yes symmetric chest movement OTHER: Occasional wheezing in both lungs quintana Cardio: COMMON NORMALS: regular rate, regular rhythm, S1 normal heart sound present, S2 normal heart sound present, No gallops present (Cardio), No murmurs present (Cardio), No rub (Cardio) and Peripheral pulses 2+ throughout RATE: regular rate RHYTHM: regular rhythm HEART SOUNDS: S1 normal heart sound present and S2 normal heart sound present PERIPHERAL PULSES: Peripheral pulses 2+ throughout GI: COMMON NORMALS: Normal to inspection, nondistended, normoactive bowel sounds present, Soft to palpation, non-tender, No hepatosplenomegaly present and no masses AUSCULTATION: Yes normoactive bowel sounds PALPATION: Yes Soft to palpation and Yes No hepatosplenomegaly present RECTAL EXAM: Yes deferred Extremity: NARRATIVE EXTREMITY EXAM: 2+ B/L L/E Pitting edema Neuro: COMMON NORMALS: patient oriented x3 Data : 03/23/21 04:00 03/23/21 10:33 Micro: Microbiology 03/21/21 14:50 Urine Culture - Final Urine,Voided 03/17/21 16:30 Blood Culture - Final Blood NO GROWTH AFTER 5 DAYS A&P Assessment and plan (1) Unstable angina: NSTEMI -6-hour troponin 93.85, delta 9.8 -EKG shows nonspecific ST-T wave changes in inferior leads -Cardiac echocardiogram pending 1. Normal left ventricular cavity size and systolic function. Left ventricular ejection fraction is estimated at 55 %. Possible septal hypokinesis. 2. Dilated right ventricle with probably moderately systolic function. 3. Mild to moderate aortic valve stenosis, mean gradient 12.7 mmHg, KERRY 1.1 cm squared. Visually appears to be moderate in some views. 4. Moderate biatrial enlargement. 5. Pulmonary artery pressue estimated at 36 mm Hg. 6. Gtae-hp-ttltyogi tricuspid valve regurgitation. 7. When compared to previous study dated 06/07/2019, right ventricula systolic function may have decreased. -Continue aspirin 81 mg, plavix , 75 mg po daily , atorvastatin 40 mg, metoprolol 50 mg twice daily -On Eliquis -lasix 40mg q12h -ABG results pending, start BiPAP S/P CAG And PTCA ( ostial moderate 40 to 50% in stenosis which was eccentric IFR was performed which was 0.93 and not significant. He was also noted to have significant mid and distal calcified PDA lesions. Both this lesion were treated with balloon angioplasty. 80 to 90% lesions were reduced to 40 to 50%.) continue ASA, plavix till discharge (d/t triple therapy). Will discharge on plavis and Eliquis Status: Acute (2) Non-ST elevation [place] (NSTEMI): Status: Acute (3) COPD (chronic obstructive pulmonary disease): On 3Ls home oxygen Solumedrol 60 mg I.V BID dUO NEBS Status: Chronic (4) Hepatitis C: Status: Acute (5) Atrial fibrillation: Atrial fibrillation, rate controlled, on metoprolol as well as Cardizem Continue Eliquis Status: Acute Qualifiers: Atrial fibrillation type: paroxysmal Qualified Code(s): I48.0 - Paroxysmal atrial fibrillation (6) Acute systolic heart failure: Initially on lasix 40 mg IV every 12 hours Daily. Has been switched to Lasix 40 mg p.o. twice daily Status: Acute (7) Hyponatremia: Likely 2/2 possible diuresis, cannot r/o component of SIADH 2/2 to possible underlying lung malignancy Currently Lasix on hold Continue to monitor BMP Urine electrolytes Random cortisol TSH Status: Acute (8) Hyperkalemia: Current plan is to give hyperkalemia cocktail (dextrose, insulin, Kayexalate) Monitor screw machine adjuster automatic BMP Status: Acute (9) Lung nodule: 2 cm right lung nodule. This is increased in size since 07/01/2020 and is new since 2020. Patient will need CT chest as well as pulmonary follow up as outpatient. Status: Acute (10) Leukocytosis: Likely 2/2 recent steroid use. Status: Acute Additional A&P Information hypertension, continue meds Periumbilical hernia, continue to monitor Altered mental status, secondary to elevated PCO2, UTI UTI: On Rocephin DVT prophylaxis:Heparin Attestations Medical Necessity Statement*: Patient needs to be in hospital for management of hyponatremia , hyperkalemia. Coding Level of Care Code Acute Bilingual Case Manager for [facility] Fwd Exam Detailed Diagnoses Unstable angina I20.0 Non-ST elevation [place] (NSTEMI) I21.4 COPD (chronic obstructive pulmonary disease) J44.9 Hepatitis C B19.20 Atrial fibrillation I48.0 Atrial fibrillation type: paroxysmal Acute systolic heart failure I50.21 Hyponatremia E87.1 Hyperkalemia E87.5 Lung nodule R91.1 Leukocytosis D72.829
--- NOTE | 2021-03-23 14:15 | PM.PN ---
Subjective Subjective: Interval history: He complains of feeling tired. Medications: Reviewed: Yes Vitals/I&O/Wt Last Vital Signs Temp 98.1 F 03/23/21 04:00 Pulse 94 03/23/21 13:25 Resp 24 H 03/23/21 13:21 BP 137/92 03/23/21 08:00 Pulse Ox 98 03/23/21 13:21 03/22/21 03/23/21 03/23/21 22:59 06:59 14:59 Intake Total 1977 1120 / 1120 Output Total 280 / 1180 700 / 700 Balance 630 / 798 420 / 420 Physical Exam Narrative: EXAM NARRATIVE: GENERAL: obese man sitting in bed with mild respiratory distress HEENT: No pallor or icterus. NECK: JVD not appreciated. CARDIOVASCULAR SYSTEM: S1-S2 irregular. No murmur or gallops. RESPIRATORY SYSTEM: Chest clear to auscultation. + intermittent rhonchi. ABDOMEN: Soft, obese, nontender and nondistended. Normal bowel sounds present. Left lower quadrant hernia+ EXTREMITIES: No cyanosis, 2+ bilateral leg edema. 2+ radial; no significant bruising or hematoma LEAD NUCLEAR MEDICINE TECHNOLOGIST: Patient is alert oriented ?3. No focal neurological deficits. Data : 03/23/21 04:00 03/23/21 10:33 Micro: Microbiology 03/21/21 14:50 Urine Culture - Final Urine,Voided 03/17/21 16:30 Blood Culture - Final Blood NO GROWTH AFTER 5 DAYS A&P Assessment and plan (1) Non-ST elevation [place] (NSTEMI): He was noted to have ostial moderate 40 to 50% in stenosis which was eccentric IFR was performed which was 0.93 and not significant. He was also noted to have significant mid and distal calcified PDA lesions. Both this lesion were treated with balloon angioplasty. 80 to 90% lesions were reduced to 40 to 50%. -continue plavix and Eliquis. May stop ASA Status: Acute (2) Heart failure with preserved ejection fraction, borderline, class III: -Agree with holding Lasix today -I/O charting and daily weight Status: Chronic (3) Atrial fibrillation: Paroxysmal A. fib/flutter -On Eliquis, metoprolol and diltiazem. -dose decreased d/t bradycardia Status: Acute Qualifiers: Atrial fibrillation type: paroxysmal Qualified Code(s): I48.0 - Paroxysmal atrial fibrillation (4) Hypertension: Status: Chronic Qualifiers: Hypertension type: primary hypertension Qualified Code(s): I10 - Essential (primary) hypertension (5) COPD (chronic obstructive pulmonary disease): Being treated for COPD exacerbation per primary Status: Chronic Additional A&P Information Anemia: No active bleed Hyponatremia Hyperkalemia: Repeat labs pending Obesity Chronic respiratory failure IRVIN Hypertension IRVIN Non compliance Thank you for allowing me to participate in patient's care. Please feel free to call with questions or concerns. Attestations Medical Necessity Statement*: As per primary team Time Spent in Patient Care: 16 - 35 minutes (>than 50% of time spent in counselling and/or direct pt care on unit). Coding Level of Care Code Acute Senior Cognos Developer for g Fwd Diagnoses Non-ST elevation [place] (NSTEMI) I21.4 Heart failure with preserved ejection fraction, borderline, class III I50.30 Atrial fibrillation I48.0 Atrial fibrillation type: paroxysmal Hypertension I10 Hypertension type: primary hypertension COPD (chronic obstructive pulmonary disease) J44.9
[2021-03-23] MEDS: sodium polystyrene sulfonate 15 gm/60 mL Btl PO (14:53)
[2021-03-23] MEDS: insulin regular-human 5 UNIT in SYRINGE 1 EACH IVP (14:54)
[2021-03-23] MEDS: dextrose 50% syringe 50 mL 25 ML IVP (14:54)
[2021-03-23] MEDS: nystatin powder 15 gm Btl 1 APPLIC TOPICAL (16:40)
[2021-03-23] MEDS: cefTRIAXone 1,000 MG in sodium chloride 0.9% (plus) 50 ML 100 MG IV (16:40)
--- NOTE | 2021-03-23 17:34 | CTR_ITS ---
PROCEDURE INFORMATION: Exam: CT Abdomen And Pelvis Without Contrast Exam date and time: 03/23/2021 5:34 PM Age: 75 years old Clinical indication: Nausea and vomiting; Abdominal pain; Prior surgery; Additional info: Generalized abdominal pain TECHNIQUE: Imaging protocol: Computed tomography of the abdomen and pelvis without contrast. Radiation optimization: All CT scans at this facility use at least one of these dose optimization techniques: automated exposure control; mA and/or kV adjustment per patient size (includes targeted exams where dose is matched to clinical indication); or iterative reconstruction. COMPARISON: CT chest abd pel wo con 07/13/2019 7:36 PM RADIATION DOSE METRICS: Total DLP (mGy-cm): 1358.33 FINDINGS: Lungs: Previously seen small sub cm right lower lobe lung nodule has considerably increased in size and is now mass measuring 2.0 x 1.6 cm. There are several small noncalcified nodules in the middle lobe measuring up to 4 mm. Pleural spaces: Persisting small right pleural effusion. Heart: Numerous calcified plaques in the coronary arteries. Liver: Normal. No mass. Gallbladder and bile ducts: The gallbladder is surgically absent. Pancreas: Normal. No ductal dilation. Spleen: Normal. No splenomegaly. Adrenal glands: Unchanged 3 cm left adrenal mass. Right adrenal thickening is unchanged. Kidneys and ureters: The the chronic 2.5 cm left renal cyst. 2 mm non-obstructing left intrarenal calculus. Stomach and bowel: The stomach is distended with food and fluid. Appendix: No evidence of appendicitis. Intraperitoneal space: Small ascites predominantly around the liver. Vasculature: There are numerous calcified plaques in the abdominal aorta and iliac arteries. Lymph nodes: Unremarkable. No enlarged lymph nodes. Urinary bladder: Unremarkable as visualized. Reproductive: Unremarkable as visualized. Bones/joints: Chronic posterior lumbar fusion at L4 and L5. Chronic right hip arthroplasty. Soft tissues: There is a chronic left periumbilical ventral hernia measuring 15 x 8 cm and containing multiple loops of nonobstructed small bowel. There is a persisting small right inguinal hernia containing a nonobstructed loop of small bowel and measuring 5.3 cm. Other findings: Although somewhat limited without contrast there appear to be an enlarged right hilar node up to [address]/CT abdomen pelvis wo con [id number] IMPRESSION: 1. Increased right lower lobe lung nodule which is now a 2 cm mass. Additional middle lobe nodules. The pattern is strongly suggestive of metastatic disease but of indeterminate origin. 2. Nonobstructing left periumbilical ventral hernia and right inguinal hernias both of which contain small bowel but without obstruction. 3. Chronic left adrenal mass. 4. Other chronic and incidental findings as described
[2021-03-23] MEDS: insulin lispro 100 unit/1 mL SUBCUT ×2 (17:43→21:37)
[2021-03-23 18:03] LABS: Glucose Point of Care 470 mg/dL (70-110)
--- NOTE | 2021-03-23 18:51 | PC.NURSE ---
pt c/o low back and ll abd pain.morphine /pain meds had been dc'd.dr mi notified of pt's c/o pain..and he reordered morphine and came and assessed pt.he has ordered a ct of abd.
[2021-03-23 21:15] LABS: Glucose Point of Care 546 mg/dL (70-110)
[2021-03-23 21:15] LABS: Glucose Point of Care 436 mg/dL (70-110)
[2021-03-23] MEDS: atorvastatin 40 mg Tablet PO (21:39)
[2021-03-24] VITALS (78 sets, daily range): BP systolic 121–163; BP diastolic 73–126; PULSE 68–135; RESP 13–30; TEMP 36.5; O2SAT 78–100
[2021-03-24] MEDS: haloperidol inj 5 mg/mL INJ 1 mL 1 MG IM (00:02)
[2021-03-24] MEDS: morphine 4 mg/mL SDV 1 mL 2 MG IVP ×3 (04:02→18:50)
[2021-03-24 04:11] LABS: Basophils % 0.2 %; Hematocrit 30.5 % (42.0-52.0); Lymphocytes # 1.4 10^3/uL (0.8-4.8); Lymphocytes % 5.9 %; Mean Corpuscular HGB Conc 32.8 g/dL (30.0-36.0); Mean Corpuscular Hemoglobin 33.1 pg (28.0-34.0); Mean Platelet Volume 11.5 fL (7.4-10.4); Monocytes # 2.7 10^3/uL (0.2-0.9); Monocytes % 11.2 %; Neutrophils # 19.76 10^3/uL (1.8-7.7); Neutrophils % 81.6 %; Nucleated Red Blood Cells % 0 %; Platelet Count 214 10^3/cmm (130-400); Red Blood Count 3.02 10^6/uL (4.1-5.3); Red Cell Distribution Width 13.7 % (12.1-15.1); White Blood Count 24.2 10^3/uL (4.0-10.0)
[2021-03-24 04:33] LABS: Alanine Aminotransferase 56 U/L (0-41); Albumin Level 2.7 g/dL (3.5-5.2); Alkaline Phosphatase 103 IU/L (40-130); Anion Gap 14.3 (5-19); Aspartate Amino Transferase 51 U/L (0-40); Blood Urea Nitrogen 44 mg/dL (8-23); Calcium 7.9 mg/dL (8.5-10.5); Carbon Dioxide 27 mmol/L (22-29); Chloride 93 mmol/L (98-107); Glucose 188 mg/dL (65-115); Osmolality Calculated 284 mOsm/kg (285-295); Potassium 5.3 mmol/L (3.5-5.1); Sodium 129 mmol/L (136-145); Total Bilirubin 0.3 mg/dL (0.15-1.2); Total Protein 7.7 g/dL (6.6-8.7)
[2021-03-24 04:36] LABS: Ammonia 30 umol/L (16-60)
--- NOTE | 2021-03-24 04:51 | PC.NURSE ---
Around 0030: Patient in afib sustaining in the 120's to 140's. Notified Dr. Mattson, Hospitalist. Order received, see MAY.
[2021-03-24 06:37] LABS: Glucose Point of Care 165 mg/dL (70-110)
--- NOTE | 2021-03-24 08:53 | PC.SOCIAL ---
IMM UPDATED IMM dated and initialed and copy given to patient
[2021-03-24] MEDS: metoprolol tartrate 25 mg Tablet PO ×2 (08:54→20:30)
[2021-03-24] MEDS: folic acid 1 mg Tablet PO (08:54)
[2021-03-24] MEDS: insulin lispro 100 unit/1 mL SUBCUT ×4 (08:54→20:31)
[2021-03-24] MEDS: apixaban 5 mg Tablet PO ×2 (08:54→20:23)
[2021-03-24] MEDS: pantoprazole DR 40 mg Tablet PO (08:54)
[2021-03-24] MEDS: isosorbide mononitrate ER 30 mg Tablet PO (08:54)
[2021-03-24] MEDS: dilTIAZem ER (24HR) 180 mg Capsule PO (08:54)
[2021-03-24] MEDS: clopidogrel 75 mg Tablet PO (08:54)
[2021-03-24] MEDS: predniSONE 20 mg Tablet 40 MG PO (08:54)
[2021-03-24] MEDS: ipratropium-albuterol 3 mL Neb INHALATION ×3 (09:18→19:44)
--- NOTE | 2021-03-24 09:45 | PC.NURSE ---
Pt sitting on the side of the bed eating breakfast. Resp even and non-labored no distress noted. Pt c/o pain in abdomen and torso area. Pt given morphine sulfate 2mg IV for pain. Call light in reach. Will reassess pt.
--- NOTE | 2021-03-24 11:10 | P.PN_ITS ---
Subjective Subjective: Interval history: Patient continue to complain of being tired as well as generalized abdominal pain, he was also complaining of shortness of breath this morning, CT abdomen and pelvis done yesterday: Has not shown any acute changes. Patient continue to saturate well on 4 Ls oxygen through nasal cannula. Medications: Reviewed: Yes Vitals/I&O/Wt Last Vital Signs Temp 97.7 F 03/24/21 03:35 Pulse 97 03/24/21 09:22 Resp 18 03/24/21 09:22 BP 160/85 03/24/21 08:00 Pulse Ox 92 03/24/21 09:22 03/23/21 03/24/21 03/24/21 22:59 06:59 14:59 Intake Total 1250.05 / 2370.05 44.000 / 2414.050 300 / 300 Output Total 450 / 1650 350 / 2000 Balance 800.05 / 720.05 -306.000 / 414.050 300 / 300 Physical Exam Const: COMMON NORMALS: patient oriented x3 HENMT: COMMON NORMALS: normocephalic and atraumatic HEAD & SCALP: normocephalic and atraumatic Resp: COMMON NORMALS: clear to auscultation bilaterally EFFORT & INSPECTION: Yes symmetric chest movement AUSCULTATION: clear to auscultation bilaterally Cardio: COMMON NORMALS: regular rate, regular rhythm, S1 normal heart sound present, S2 normal heart sound present, No gallops present (Cardio), No murmurs present (Cardio), No rub (Cardio) and Peripheral pulses 2+ throughout RATE: regular rate RHYTHM: regular rhythm HEART SOUNDS: S1 normal heart sound present and S2 normal heart sound present PERIPHERAL PULSES: Peripheral pulses 2+ throughout GI: COMMON NORMALS: Normal to inspection, nondistended, normoactive bowel sounds present, Soft to palpation, non-tender, No hepatosplenomegaly present and no masses AUSCULTATION: Yes normoactive bowel sounds PALPATION: Yes Soft to palpation and Yes No hepatosplenomegaly present RECTAL EXAM: Yes deferred OTHER: left periumbilical ventral hernia Extremity: NARRATIVE EXTREMITY EXAM: 2+ B/L L/E Pitting edema Neuro: COMMON NORMALS: patient oriented x3 Data : 03/24/21 03:51 03/24/21 03:51 Micro: Microbiology 03/17/21 Unknown Blood Culture - Final Blood Corynebacterium species Bacillus cereus 03/21/21 14:50 Urine Culture - Final Urine,Voided A&P Assessment and plan (1) Unstable angina: NSTEMI -6-hour troponin 93.85, delta 9.8 -EKG shows nonspecific ST-T wave changes in inferior leads -Cardiac echocardiogram pending 1. Normal left ventricular cavity size and systolic function. Left ventricular ejection fraction is estimated at 55 %. Possible septal hypokinesis. 2. Dilated right ventricle with probably moderately systolic function. 3. Mild to moderate aortic valve stenosis, mean gradient 12.7 mmHg, KERRY 1.1 cm squared. Visually appears to be moderate in some views. 4. Moderate biatrial enlargement. 5. Pulmonary artery pressue estimated at 36 mm Hg. 6. [id number] tricuspid valve regurgitation. 7. When compared to previous study dated 06/07/2019, right ventricula systolic function may have decreased. -Continue aspirin 81 mg, plavix , 75 mg po daily , atorvastatin 40 mg, metoprolol 50 mg twice daily -On Eliquis -lasix 40mg q12h -ABG results pending, start BiPAP S/P CAG And PTCA ( ostial moderate 40 to 50% in stenosis which was eccentric IFR was performed which was 0.93 and not significant. He was also noted to have significant mid and distal calcified PDA lesions. Both this lesion were treated with balloon angioplasty. 80 to 90% lesions were reduced to 40 to 50%.) continue ASA, plavix till discharge (d/t triple therapy). Will discharge on plavis and Eliquis. As per cardiology plan patient will continue on Plavix for 1 month, given PTCA, and then he will be switched back to aspirin and Eliquis. Status: Acute (2) Non-ST elevation MT (NSTEMI): Status: Acute (3) COPD (chronic obstructive pulmonary disease): On 3Ls home oxygen Was on Solumedrol 60 mg I.V BID. Has been Switched to Prednisone 40 mg po daily Duo NEBS Status: Chronic (4) Hepatitis C: Status: Acute (5) Atrial fibrillation: Atrial fibrillation, rate controlled, on metoprolol as well as Cardizem Continue Eliquis Status: Acute Qualifiers: Atrial fibrillation type: paroxysmal Qualified Code(s): I48.0 - Paroxysmal atrial fibrillation (6) Acute systolic heart failure: Initially on lasix 40 mg IV every 12 hours Daily. Was switched to Lasix 40 mg p.o. twice daily. Currently on hold given hyponatremia as well as slightly worsening kidney function. We will continue to monitor for now. 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 This is increased in size since 07/01/2020 and is new since 2019. Patient will need CT chest as well as pulmonary follow up as outpatient. Status: Acute (10) Leukocytosis: Likely 2/2 recent steroid use. Status: Acute Additional A&P Information #left periumbilical ventral hernia : CT abdomen pelvis wo con: Nonobstructing left periumbilical ventral hernia and right inguinal hernias both of which contain small bowel but without obstruction. #hypertension, continue meds Altered mental status, secondary to elevated PCO2, UTI UTI: On Rocephin DVT prophylaxis:Heparin Attestations Medical Necessity Statement*: Patient needs to be in hospital for continued management of hyponatremia, hyperkalemia, Need for medical optimization. Coding Level of Care Code Acute It Architecture Consultant for [facility] Fwd Exam Detailed Diagnoses Unstable angina I20.0 Non-ST elevation MT (NSTEMI) I21.4 COPD (chronic obstructive pulmonary disease) J44.9 Hepatitis C B19.20 Atrial fibrillation I48.0 Atrial fibrillation type: paroxysmal Acute systolic heart failure I50.21 Hyponatremia E87.1 Hyperkalemia E87.5 Lung nodule R91.1 Leukocytosis D72.829
[2021-03-24 12:21] LABS: Glucose Point of Care 328 mg/dL (70-110)
--- NOTE | 2021-03-24 18:00 | PC.NURSE ---
Pt had large BM formed stool.
[2021-03-24 18:31] LABS: Glucose Point of Care 249 mg/dL (70-110)
[2021-03-24] MEDS: budesonide 0.5 mg/2 mL Neb INHALATION (19:44)
[2021-03-24] MEDS: atorvastatin 40 mg Tablet PO (20:29)
[2021-03-24 20:51] LABS: Glucose Point of Care 258 mg/dL (70-110)
[2021-03-24] MEDS: acetaminophen 325 mg Tablet 650 MG PO (21:29)
--- NOTE | 2021-03-24 22:05 | PC.NURSE ---
Patient requesting pain medication at change of shift and prior RN had given him Morphine within the hour. Patient states he feels like it has not worked yet. Tylenol given and patient advised of time that he could receive another dose of Morphine. Patient verbalized understanding and stated that he will try to go to sleep.
[2021-03-25] VITALS (23 sets, daily range): BP systolic 112–146; BP diastolic 68–91; PULSE 85–115; RESP 16–28; TEMP 36.5–36.8; O2SAT 87–99
[2021-03-25] MEDS: ipratropium-albuterol 3 mL Neb INHALATION ×5 (00:06→19:45)
[2021-03-25 04:37] LABS: Basophils % 0.1 %; Hemoglobin 10.3 g/dL (11.7-16.6); Lymphocytes # 1.6 10^3/uL (0.8-4.8); Lymphocytes % 9.4 %; Mean Corpuscular HGB Conc 33.2 g/dL (30.0-36.0); Mean Corpuscular Hemoglobin 34.8 pg (28.0-34.0); Mean Corpuscular Volume 104.7 fl (80-94); Mean Platelet Volume 11.3 fL (7.4-10.4); Monocytes # 2.1 10^3/uL (0.2-0.9); Monocytes % 12.4 %; Neutrophils # 13.24 10^3/uL (1.8-7.7); Neutrophils % 76.8 %; Nucleated Red Blood Cells % 0 %; Platelet Count 213 10^3/cmm (130-400); Red Blood Count 2.96 10^6/uL (4.1-5.3); White Blood Count 17.2 10^3/uL (4.0-10.0)
[2021-03-25 04:55] LABS: Alanine Aminotransferase 57 U/L (0-41); Albumin Level 2.8 g/dL (3.5-5.2); Alkaline Phosphatase 102 IU/L (40-130); Anion Gap 13.5 (5-19); Aspartate Amino Transferase 51 U/L (0-40); Blood Urea Nitrogen 40 mg/dL (8-23); Calcium 7.9 mg/dL (8.5-10.5); Carbon Dioxide 27 mmol/L (22-29); Chloride 94 mmol/L (98-107); Creatinine Clr Calc Pharmacy 71.7504; Globulin 4.8 g/dL (1.3-4.6); Glucose 143 mg/dL (65-115); Osmolality Calculated 280 mOsm/kg (285-295); Potassium 5.5 mmol/L (3.5-5.1); Sodium 129 mmol/L (136-145); Total Bilirubin 0.4 mg/dL (0.15-1.2); Total Protein 7.6 g/dL (6.6-8.7)
[2021-03-25 07:14] LABS: Glucose Point of Care 177 mg/dL (70-110)
[2021-03-25] MEDS: isosorbide mononitrate ER 30 mg Tablet PO (08:12)
[2021-03-25] MEDS: pantoprazole DR 40 mg Tablet PO (08:12)
[2021-03-25] MEDS: dilTIAZem ER (24HR) 180 mg Capsule PO (08:12)
[2021-03-25] MEDS: insulin lispro 100 unit/1 mL SUBCUT ×3 (08:12→20:33)
[2021-03-25] MEDS: folic acid 1 mg Tablet PO (08:12)
[2021-03-25] MEDS: apixaban 5 mg Tablet PO ×2 (08:12→20:34)
[2021-03-25] MEDS: metoprolol tartrate 25 mg Tablet PO ×2 (08:12→20:31)
[2021-03-25] MEDS: clopidogrel 75 mg Tablet PO (08:12)
[2021-03-25] MEDS: budesonide 0.5 mg/2 mL Neb INHALATION ×2 (09:28→19:45)
[2021-03-25] MEDS: LORazepam 2 mg Tablet PO ×2 (10:48→18:42)
--- NOTE | 2021-03-25 11:02 | PM.PN ---
Subjective Subjective: Interval history: Patient continue to complain of being tired as well as sob.Will give one dose lasix 40 mg I.V today. Medications: Reviewed: Yes Vitals/I&O/Wt Last Vital Signs Temp 98.3 F 03/25/21 04:00 Pulse 96 03/25/21 09:34 Resp 16 03/25/21 09:34 BP 112/79 03/25/21 04:00 Pulse Ox 98 03/25/21 09:34 03/24/21 03/25/21 03/25/21 22:59 06:59 14:59 Intake Total 400 / 700 472 / 472 Output Total 1500 / 1500 780 / 780 Balance -1100 / -800 -308 / -308 Physical Exam Const: COMMON NORMALS: patient oriented x3 HENMT: COMMON NORMALS: normocephalic and atraumatic HEAD & SCALP: normocephalic and atraumatic Resp: COMMON NORMALS: clear to auscultation bilaterally EFFORT & INSPECTION: Yes symmetric chest movement AUSCULTATION: clear to auscultation bilaterally OTHER: Occasional wheezing in both lungs quintana Cardio: COMMON NORMALS: regular rate, regular rhythm, S1 normal heart sound present, S2 normal heart sound present, No gallops present (Cardio), No murmurs present (Cardio), No rub (Cardio) and Peripheral pulses 2+ throughout RATE: regular rate RHYTHM: regular rhythm HEART SOUNDS: S1 normal heart sound present and S2 normal heart sound present PERIPHERAL PULSES: Peripheral pulses 2+ throughout GI: COMMON NORMALS: Normal to inspection, nondistended, normoactive bowel sounds present, Soft to palpation, non-tender, No hepatosplenomegaly present and no masses AUSCULTATION: Yes normoactive bowel sounds PALPATION: Yes Soft to palpation and Yes No hepatosplenomegaly present RECTAL EXAM: Yes deferred OTHER: left periumbilical ventral hernia Extremity: NARRATIVE EXTREMITY EXAM: 2+ B/L L/E Pitting edema Neuro: COMMON NORMALS: patient oriented x3 Data : 03/25/21 04:03 03/25/21 04:03 Micro: Microbiology 03/20/21 10:50 Blood Culture - Final Blood NO GROWTH AFTER 5 DAYS A&P Assessment and plan (1) Unstable angina: NSTEMI -6-hour troponin 93.85, delta 9.8 -EKG shows nonspecific ST-T wave changes in inferior leads -Cardiac echocardiogram pending 1. Normal left ventricular cavity size and systolic function. Left ventricular ejection fraction is estimated at 55 %. Possible septal hypokinesis. 2. Dilated right ventricle with probably moderately systolic function. 3. Mild to moderate aortic valve stenosis, mean gradient 12.7 mmHg, KERRY 1.1 cm squared. Visually appears to be moderate in some views. 4. Moderate biatrial enlargement. 5. Pulmonary artery pressue estimated at 36 mm Hg. 6. Ppgy-[id number] tricuspid valve regurgitation. 7. When compared to previous study dated 06/07/2019, right ventricula systolic function may have decreased. -Continue aspirin 81 mg, plavix , 75 mg po daily , atorvastatin 40 mg, metoprolol 50 mg twice daily -On Eliquis -lasix 40mg q12h -ABG results pending, start BiPAP S/P CAG And PTCA ( ostial moderate 40 to 50% in stenosis which was eccentric IFR was performed which was 0.93 and not significant. He was also noted to have significant mid and distal calcified PDA lesions. Both this lesion were treated with balloon angioplasty. 80 to 90% lesions were reduced to 40 to 50%.) continue ASA, plavix till discharge (d/t triple therapy). Will discharge on plavis and Eliquis. As per cardiology plan patient will continue on Plavix for 1 month, given PTCA, and then he will be switched back to aspirin and Eliquis. Status: Acute (2) Non-ST elevation [place] (NSTEMI): Status: Acute (3) COPD (chronic obstructive pulmonary disease): On 3Ls home oxygen Was on Solumedrol 60 mg I.V BID. Has been Switched to Prednisone 40 mg po daily Duo NEBS Status: Chronic (4) Hepatitis C: Status: Acute (5) Atrial fibrillation: Atrial fibrillation, rate controlled, on metoprolol as well as Cardizem Continue Eliquis Status: Acute Qualifiers: Atrial fibrillation type: paroxysmal Qualified Code(s): I48.0 - Paroxysmal atrial fibrillation (6) Acute systolic heart failure: Initially on lasix 40 mg IV every 12 hours Daily. Was switched to Lasix 40 mg p.o. twice daily. Currently on hold given hyponatremia as well as slightly worsening kidney function. We will continue to monitor for now. 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 This is increased in size since 07/01/2020 and is new since 2019. Patient will need CT chest as well as pulmonary follow up as outpatient. Status: Acute (10) Leukocytosis: Likely 2/2 recent steroid use. Status: Acute Additional A&P Information #left periumbilical ventral hernia : CT abdomen pelvis wo con: Nonobstructing left periumbilical ventral hernia and right inguinal hernias both of which contain small bowel but without obstruction. #hypertension, continue meds Altered mental status, secondary to elevated PCO2, UTI UTI: On Rocephin DVT prophylaxis:Heparin Attestations Medical Necessity Statement*: Patient needs to be in hospital for the management of above defined problems. Coding Level of Care Code Acute Medical Photographer for g Fwd Exam Detailed Diagnoses Unstable angina I20.0 Non-ST elevation [place] (NSTEMI) I21.4 COPD (chronic obstructive pulmonary disease) J44.9 Hepatitis C B19.20 Atrial fibrillation I48.0 Atrial fibrillation type: paroxysmal Acute systolic heart failure I50.21 Hyponatremia E87.1 Hyperkalemia E87.5 Lung nodule R91.1 Leukocytosis D72.829
--- NOTE | 2021-03-25 11:17 | PC.CHAP ---
Pastoral Care Encounter/Spiritual Assessment Type of Contact [] Declined fisher crab visit [] Patient/Family/Request visit [] Outpatient visit [xx] Follow-up visit [] Physician referral [] Code/Alert [xxx] Routine visit [] Staff referral [] Actively dying [] Patient sleeping [] Family support [] [] Out of room [] Palliative care [] [] Receiving care in room [] Pre-surgical visit [] Trauma [xx] Long length of stay [] ICU visit [] Other: Relational/Emotional Strength [xx] Patient feels connected with others/family/visitors/staff [] Distress [] Loneliness/isolation [] Abandonment Spirituality of Patient [xx] Person of Karen [] Attends Shinto of their Karen [xx] Believes in Prayer [xx] Reads Bible or Faith materials [] There are Spiritual issues to be addressed Color Maker Dyer Interventions [xx] Prayer [xx] Active listening [xx] Non-anxious presence [] Spiritual/emotional support [] Crisis/trauma care [] Spiritual counseling [] Bereavement support [] Provided bereavement packet [] Provided Bible/devotional materials [] Provided toy/stuffed animal, coloring book to patient or family member [] Provided Communion [] Anointing/Bimble [] Salvation [xx] Completed spiritual assessment [] Other: Impact on Illness or Injury [] Angry [] Fearful [] Anxious [] Often cries [] Exhaustion [] Unable to work [] Unable to attend nondenominational [] Unable to walk/stand [] Unable to read [] Unable to drive [] Unable to eat/drink [] Unable to sleep [] Unable to be with family [] Patient intubated [] Other: Summary Vasquez is tomorrow. Patient wants to be discharged for Vasquez to be with family even if he has to be re-admitted on the . There are 3 generations together now for the first time and he wants to be the 4th generation at the family reunion as it will probably be the only and last time they will all be together. Time spent with patient 5 minutes
[2021-03-25 11:36] LABS: Glucose Point of Care 186 mg/dL (70-110)
[2021-03-25] MEDS: dextrose 50% syringe 50 mL 25 ML IVP (13:09)
[2021-03-25] MEDS: insulin regular-human 5 UNIT in SYRINGE 1 EACH IVP (13:09)
[2021-03-25] MEDS: FUROsemide 10 mg/mL SDV 4mL 40 MG IVP (14:42)
[2021-03-25] MEDS: morphine 4 mg/mL SDV 1 mL 2 MG IVP (14:42)
[2021-03-25] MEDS: guaiFENesin 600 mg Tablet 1200 MG PO ×2 (14:42→17:43)
[2021-03-25 17:08] LABS: Glucose Point of Care 124 mg/dL (70-110)
[2021-03-25] MEDS: acetaminophen 325 mg Tablet 650 MG PO (20:30)
[2021-03-25] MEDS: atorvastatin 40 mg Tablet PO (20:32)
[2021-03-25 21:21] LABS: Glucose Point of Care 194 mg/dL (70-110)
[2021-03-25] MEDS: albuterol 8 gm MDI 1 PUFF INHALATION (21:55)
[2021-03-26] VITALS (10 sets, daily range): BP systolic 116–139; BP diastolic 70–88; PULSE 76–111; RESP 18–20; TEMP -4.4–37.1; O2SAT 93–99
[2021-03-26 04:51] LABS: Basophils % 0.1 %; Eosinophils # 0.2 10^3/uL (0.0-0.8); Eosinophils % 1.8 %; Hematocrit 33.2 % (42.0-52.0); Hemoglobin 10.9 g/dL (11.7-16.6); Lymphocytes % 18.6 %; Mean Corpuscular HGB Conc 32.8 g/dL (30.0-36.0); Mean Corpuscular Hemoglobin 33.9 pg (28.0-34.0); Mean Corpuscular Volume 103.1 fl (80-94); Mean Platelet Volume 11.1 fL (7.4-10.4); Monocytes # 1.8 10^3/uL (0.2-0.9); Monocytes % 16.9 %; Neutrophils # 6.49 10^3/uL (1.8-7.7); Neutrophils % 61.4 %; Nucleated Red Blood Cells % 0 %; Platelet Count 204 10^3/cmm (130-400); Red Blood Count 3.22 10^6/uL (4.1-5.3); Red Cell Distribution Width 13.8 % (12.1-15.1); White Blood Count 10.6 10^3/uL (4.0-10.0)
[2021-03-26 05:11] LABS: Alanine Aminotransferase 61 U/L (0-41); Albumin Level 2.8 g/dL (3.5-5.2); Alkaline Phosphatase 108 IU/L (40-130); Aspartate Amino Transferase 62 U/L (0-40); Blood Urea Nitrogen 36 mg/dL (8-23); Carbon Dioxide 27 mmol/L (22-29); Chloride 92 mmol/L (98-107); Globulin 4.7 g/dL (1.3-4.6); Glucose 154 mg/dL (65-115); Osmolality Calculated 277 mOsm/kg (285-295); Sodium 128 mmol/L (136-145); Total Bilirubin 0.4 mg/dL (0.15-1.2); Total Protein 7.5 g/dL (6.6-8.7)
[2021-03-26 05:13] LABS: Anion Gap 14.2 (5-19); Potassium 5.2 mmol/L (3.5-5.1)
[2021-03-26 07:13] LABS: Glucose Point of Care 150 mg/dL (70-110)
--- NOTE | 2021-03-26 08:21 | PC.SOCIAL ---
IM followup explained and copy provided. Pt voiced understanding and has no questions.
[2021-03-26] MEDS: ipratropium-albuterol 3 mL Neb INHALATION ×2 (08:24→11:07)
[2021-03-26] MEDS: budesonide 0.5 mg/2 mL Neb INHALATION (08:24)
[2021-03-26] MEDS: clopidogrel 75 mg Tablet PO (09:17)
[2021-03-26] MEDS: apixaban 5 mg Tablet PO (09:17)
[2021-03-26] MEDS: metoprolol tartrate 25 mg Tablet PO (09:17)
[2021-03-26] MEDS: dilTIAZem ER (24HR) 180 mg Capsule PO (09:17)
[2021-03-26] MEDS: isosorbide mononitrate ER 30 mg Tablet PO (09:17)
[2021-03-26] MEDS: guaiFENesin 600 mg Tablet 1200 MG PO (09:17)
[2021-03-26] MEDS: pantoprazole DR 40 mg Tablet PO (09:18)
[2021-03-26] MEDS: folic acid 1 mg Tablet PO (09:18)
[2021-03-26] MEDS: insulin lispro 100 unit/1 mL SUBCUT ×2 (09:24→11:59)
[2021-03-26] MEDS: LORazepam 2 mg Tablet PO (10:33)
[2021-03-26] MEDS: FUROsemide 40 mg Tablet PO (10:43)
[2021-03-26 11:04] LABS: Glucose Point of Care 305 mg/dL (70-110)
--- NOTE | 2021-03-26 13:00 | PC.NURSE ---
Patient transferred from sitting on side of bed to wheelchair with standby assistance only. Son, Pedrito, at bedside. Pedrito has oxygen tank provided by [facility]. Patient on home O2. Observed son set up O2 tank without need for assistance. Reviewed medication list with patient and son. Per physician direction patient supplied with one dose of furosemide, imdur, clopidigrel
--- NOTE | 2021-03-26 13:15 | PM.DCS ---
Discharge Providers Date of Admission: 03/17/21 16:50 Date of Discharge: March 26, 2021 Attending Provider at Admission: Kristofer Powers MD Attending Provider at Discharge: Anshu Arreola MD Primary Care Provider: AYSE [place] Diagnoses at Discharge Discharge Diagnosis (1) Unstable angina: Status: Acute (2) Non-ST elevation NM (NSTEMI): Status: Acute (3) COPD (chronic obstructive pulmonary disease): Status: Chronic (4) Hepatitis C: Status: Acute (5) Atrial fibrillation: Status: Acute Qualifiers: Atrial fibrillation type: paroxysmal Qualified Code(s): I48.0 - Paroxysmal atrial fibrillation (6) Acute systolic heart failure: Status: Acute (7) Hyponatremia: Status: Acute (8) Hyperkalemia: Status: Acute (9) Lung nodule: Status: Acute (10) Leukocytosis: Status: Acute Reason for Visit Reason for Visit: SOB, R/O PNEUMONIA Hospital Course Hospital Course 75 year old male with a past medical history of atrial fibrillation on eliquis , CAD , COPD on 3 L, diastolic CHF, hypertension, history of abdominal wall hernia, history of smoking in the last 4 years, who presents to [facility] due to a 4-day history of substernal chest pain. During the hospital stay he was managed for NSTEMI, S/P CAG And PTCA ( ostial moderate 40 to 50% in stenosis which was eccentric IFR was performed which was 0.93 and not significant. He was also noted to have significant mid and distal calcified PDA lesions. Both this lesion were treated with balloon angioplasty. 80 to 90% lesions were reduced to 40 to 50%.) 2D echo done during the hospital stay: Showed normal LV cavity and systolic function, LVEF of 55%, dilated RV, with moderately decreased systolic function,Mild to moderate aortic valve stenosis, mean gradient 12.7 mmHg, KERRY 1.1 cm squared. \ Moderate biatrial enlargement.Pulmonary artery pressue estimated at 36 mm Hg. [id number] tricuspid valve regurgitation.He was on ASA, plavix and Eliquis while in-hospital aspirin was discontinued on discharge, he was continued on on plavis and Eliquis.As per cardiology plan patient will continue on Plavix for 1 month, given PTCA, and then he will be switched back to aspirin and Eliquis. For his decompensated heart failure, with preserved ejection fraction, predominantly right heart failure, with bilateral lower extremity swelling, he was optimally diuresed, though he still has 2+ bilateral pitting edema, which will likely improve with continued p.o. diuresis on Lasix 40 daily. He has been asked to fluid restrict himself to 1.2 L daily, for history of COPD he was managed for COPD exacerbation during the hospital stay, he was kept on Solu-Medrol IV twice daily, and was later transitioned to p.o. prednisone 40 daily, was continued on duo nebs, at the time of discharge he was at baseline home oxygen of 3 Ls, for his history of atrial fibrillation, heart rate was pretty well controlled on Cardizem as well as metoprolol, Cardizem dose was decreased to 180 mg po daily, keeping lying with his heart rate during the hospital stay metoprolol tartrate was continued at 25 mg p.o. twice daily, during the hospital stay he also developed hyponatremia, likely secondary to diuresis, as well as possibly component of SIADH, due to possible underlying lung malignancy, at the time of discharge he was asymptomatic with regards to his hyponatremia, he has been advised to, fluid restriction, as wells as to continue on p.o. Lasix. Hospital course was also complicated by development of LATANYA, likely secondary to, IV diuresis, at the time of discharge serum creatinine has normalized, diuresis was withheld for some time during the hospital stay and was restarted later, patient was also managed for hyperkalemia, serum potassium was 5.2 on discharge, he has been advised to watch his excess milk intake. He was also complaining of nonspecific pains during the hospital stay, at times back pain, abdominal pain, for which initially he was given morphine, but likely due to his pain seeking behavior, caution was exercised with morphine. CT abdomen pelvis done during the hospital stay: For his complaint of abdominal pain Nonobstructing left periumbilical ventral hernia and right inguinal hernias both of which contain small bowel but without obstruction. for his Lung nodule: 2 cm right lung nodule. This is increased in size since 07/01/2020 and is new since 2020. Patient will need CT chest as well as pulmonary follow up as outpatient. Appointment for which has been made. During the hospital stay he was on Rocephin for UTI, blood culture in 1 set: Grew Corynebacterium species, as well as Bacillus cereus, repeat blood cultures were negative, repeat urine culture was negative at the time of discharge, he had also right lower extremity cellulitis for which he has been discharged on p.o. levofloxacin 750 mg daily for additional 10 days. Patient was not very sure about going to detention, currently he wanted to spend some time with his family, he has been advised to keep a close follow-up with the outpatient appointments, for further medical optimization. Patient was also offered physical therapy during the hospital, but he was not very participative,overall patient was medically optimized and was discharged home in stable condition. Physical Exam Const: COMMON NORMALS: patient oriented x3 HENMT: COMMON NORMALS: normocephalic and atraumatic HEAD & SCALP: normocephalic and atraumatic Resp: EFFORT & INSPECTION: Yes symmetric chest movement OTHER: Minimal bilateral wheezing present in both lungs Cardio: COMMON NORMALS: regular rate, regular rhythm, S1 normal heart sound present, S2 normal heart sound present, No gallops present (Cardio), No murmurs present (Cardio), No rub (Cardio) and Peripheral pulses 2+ throughout RATE: regular rate RHYTHM: regular rhythm HEART SOUNDS: S1 normal heart sound present and S2 normal heart sound present PERIPHERAL PULSES: Peripheral pulses 2+ throughout GI: COMMON NORMALS: Normal to inspection, nondistended, normoactive bowel sounds present, Soft to palpation, non-tender, No hepatosplenomegaly present and no masses AUSCULTATION: Yes normoactive bowel sounds PALPATION: Yes Soft to palpation and Yes No hepatosplenomegaly present RECTAL EXAM: Yes deferred Extremity: NARRATIVE EXTREMITY EXAM: Bilateral lower extremity 2+ edema Neuro: COMMON NORMALS: patient oriented x3 Discharge Data Data Completed and Pending: Completed Studies During Hospitalization Category Date Time Status CT abdomen pelvis wo con [id number] Rout ine Cat Scan 03/23/21 17:34 Completed HOG STICKER request for service Routin e Exams 03/19/21 08:43 Completed XR chest 1V negrito ble [id number] Routine Exams 03/20/21 15:57 Completed XR chest 1V negrito ble [id number] Stat Exams 03/17/21 14:14 Completed CV. echo complete * [id number] Routine Ultrasound 03/18/21 05:00 Completed Labs from last 24 hours 03/26/21 03/26/21 03/26/21 10:56 07:08 04:25 WBC RBC Hgb Hct MCV MCH MCHC RDW Plt Count MPV Neut % (Auto) Lymph % (Auto) [place] % (Auto) Eos % (Auto) Baso % (Auto) Neut # (Auto) Lymph # (Auto) [place] # (Auto) Eos # (Auto) Baso # (Auto) Nucleated RBC % (a uto) Nucleated RBCs # Sodium 128 L Potassium 5.2 H Chloride 92 L Carbon Dioxide 27 Anion Gap 14.2 BUN 36 H Creatinine 1.1 GFR Calculation Not Reportable Glucose 154 H POC Glucose 305 H 150 H Calculated Osmolal ity 277 L Calcium 8.0 L Total Bilirubin 0.4 AST 62 H ALT 61 H Alkaline Phosphata se 108 Total Protein 7.5 Albumin 2.8 L Globulin 4.7 H 03/26/21 03/25/21 03/25/21 04:25 20:28 17:02 WBC 10.6 H RBC 3.22 L Hgb 10.9 L Hct 33.2 L MCV 103.1 H MCH 33.9 MCHC 32.8 RDW 13.8 Plt Count 204 MPV 11.1 H Neut % (Auto) 61.4 Lymph % (Auto) 18.6 [place] % (Auto) 16.9 Eos % (Auto) 1.8 Baso % (Auto) 0.1 Neut # (Auto) 6.49 Lymph # (Auto) 2.0 [place] # (Auto) 1.8 H Eos # (Auto) 0.2 Baso # (Auto) 0.0 Nucleated RBC % (a uto) 0 Nucleated RBCs # 0.0 Sodium Potassium Chloride Carbon Dioxide Anion Gap BUN Creatinine GFR Calculation Glucose POC Glucose 194 H 124 H Calculated Osmolal ity Calcium Total Bilirubin AST ALT Alkaline Phosphata se Total Protein Albumin Globulin Vitals: Last Vital Signs Temp 24 F L 03/26/21 12:38 Pulse 85 03/26/21 12:38 Resp 18 03/26/21 12:00 BP 138/84 03/26/21 12:38 Pulse Ox 93 03/26/21 12:00 Discharge Plan Discharge Patient Disposition: Home Condition: Stable Prescriptions: New clopidogrel 75 mg Tablet 75 mg PO DAILY 30 Days Qty: 30 RF: 0 DILT-XR 180 mg Capsule,Ext.Rel 24h Degradable 180 mg PO DAILY 30 Days Qty: 30 RF: 3 isosorbide mononitrate 30 mg Tablet Extended Release 24 Hr 30 mg PO DAILY 30 Days Qty: 30 RF: 3 nitroglycerin 0.4 mg Tablet, Sublingual 0.4 mg sublingual Q5M PRN (Reason: Chest Pain) 30 Days Qty: 30 RF: 0 Lasix 40 mg tablet 40 mg PO DAILY Qty: 30 RF: 3 levofloxacin 750 mg tablet 750 mg PO DAILY 10 Days Qty: 10 RF: 0 Tessalon Perles 100 mg capsule 100 mg PO TID Qty: 20 RF: 0 Continued (DME) Wheel chair with oxygen clamp See Rx Instructions .Route .MEDSUPPLY Qty: 1 RF: 0 albuterol sulfate 2.5 mg /3 mL (0.083 %) solution for nebulization 2.5 mg INHALATION Q4H PRN (Reason: shortness of breath or wheezing) Qty: 540 RF: 5 folic acid 1 mg tablet 1 mg PO DAILY 30 Days Qty: 30 RF: 5 nitroglycerin [Nitrostat] 0.4 mg Tablet, Sublingual 0.4 mg SUBLINGUAL Q5M PRN (Reason: Chest Pain) 3 Days Qty: 3 RF: 0 Wixela Inhub 500-50 mcg/dose Blister With Device 1 inh INHALATION BID RF: 0 budesonide 0.5 mg/2 mL suspension for nebulization 0.5 mg INHALATION BID PRN (Reason: ext med history shows last filled 07/02/20 30d/s) RF: 0 Miralax 17 gram/dose powder 17 gm PO DAILY PRN (Reason: Constipation) RF: 0 ProAir HFA 90 mcg/actuation HFA aerosol inhaler 2 inh inhalation Q4H PRN (Reason: Shortness Of Breath) RF: 0 Perforomist 20 mcg/2 mL solution for nebulization 2 ml INHALATION Q12H PRN (Reason: ext med history shows last filled 07/02/20 30d/s) RF: 0 Eliquis 5 mg tablet 5 mg PO BID RF: 0 Changed metoprolol tartrate 50 mg tablet 25 mg PO Q12H Qty: 60 RF: 5 Held lisinopril 20 mg tablet 20 mg PO QAM RF: 0 Hold Instructions: Resume on 04/04/21. Discontinued aspirin 81 mg tablet,delayed release (DR/EC) 81 mg PO DAILY 30 Days Qty: 30 RF: 5 diltiazem HCl 240 mg capsule,extended release 24hr 240 mg PO DAILY RF: 0 furosemide 20 mg tablet 20 mg PO DAILY RF: 0 Discharge Orders: Discharge Order (Routine); Ordered 03/26/21 Ordered By: Anshu Arreola Other Ambulatory Orders: Basic Metabolic Panel (Routine) Timeframe: 1 Week Facility: [facility] - Location: Lab - Main Lab Ordered By: Anshu Arreola Referrals: Jason Mak DO [Primary Care Provider] - 03/28/21 1:30 pm ( ) Charan Cullen MD [Physician] - 2 weeks ([facility] will be calling to schedule a Pumonary followup with Dr. Cullen to be seen in 2 weeks. If you don't hear from them bt afternoon, please give them a call. Thank you) Michael Broussard MD [Physician] - 1 month ([facility] will be calling to schedule a Cardiology followup with Dr. Broussard to be seen in 1 month. If you don't hear from them by Sunday afternoon, please give them a call. Thank you) Harriet Christian FNP [Nurse Practitioner] - 1 week ([facility] will be calling to schedule a followup with ZULEIKA Finch to be seen in 1 week. If you don't hear from them by Sunday afternoon, please give them a call. Thank you) Discharge Diet: Cardiac Discharge Activity: Resume usual activity Patient Instructions: Isosorbide Mononitrate (By mouth) (Imdur, Imdur ER, Ismo), Clopidogrel (By mouth) (Plavix), Coronary Angioplasty (DC) Activity Restrictions/Additional Instructions: Please come by the hospital in 1 week to have your BMP Blood work done. You do not need an appointment for this. Please check in with Admissions prior to going to the lab. Thank you. Discharge Attestations Time Spent in Discharge Care*: less than 30 min Specific Discharge Activities: educating patient, educating and/or supporting family/caregiver, discussing with pcp/other providers, discussing with director of casework services/social workers/dc planners, documenting/other paperwork and evaluating patient/reviewing data Status at Discharge: Cognitive status at discharge: cognitively intact, Behavioral status at discharge: cooperative, Functional status at discharge: other assisted ambulation Overall status at discharge: patient is progressing back to baseline Quality Metrics Clinical Quality Measures During this hospital stay, did patient experience: None Coding Level of Care Code Acute g FW HI note Exam Detailed Diagnoses Unstable angina I20.0 Non-ST elevation NM (NSTEMI) I21.4 COPD (chronic obstructive pulmonary disease) J44.9 Hepatitis C B19.20 Atrial fibrillation I48.0 Atrial fibrillation type: paroxysmal Acute systolic heart failure I50.21 Hyponatremia E87.1 Hyperkalemia E87.5 Lung nodule R91.1 Leukocytosis D72.829
== END 2021-03-26 13:10 | disposition home or self-care (01) | DRG 250 ==
LOC: ER 17:23 → ICU 18:22 → CSU 03-19 00:22
PROVIDERS: Internal Medicine Cardiovascular Disease; Admitting Provider Family Medicine; Emergency Provider Family Medicine; PCP Family Medicine; Visit Provider Internal Medicine
PROC: 02703ZZ Dilation of Coronary Artery, One Artery, Percutaneous Approach (ICD-10-PCS; principal; 2021-03-19 09:00)
PROC: 02703ZZ Dilation of Coronary Artery, One Artery, Percutaneous Approach (ICD-10-PCS; 2021-03-19 09:00)
DX: I21.4 Non-ST elevation (NSTEMI) myocardial infarction (principal); I50.33 Acute on chronic diastolic (congestive) heart failure; J44.1 Chronic obstructive pulmonary disease with (acute) exacerbation; J96.10 Chronic respiratory failure, unspecified whether with hypoxia or hypercapnia; L03.115 Cellulitis of right lower limb; N17.9 Acute kidney failure, unspecified; E22.2 Syndrome of inappropriate secretion of antidiuretic hormone; N39.0 Urinary tract infection, site not specified; I48.92 Unspecified atrial flutter; I25.110 Atherosclerotic heart disease of native coronary artery with unstable angina pectoris; I25.84 Coronary atherosclerosis due to calcified coronary lesion; Z99.81 Dependence on supplemental oxygen; K21.9 Gastro-esophageal reflux disease without esophagitis; I11.0 Hypertensive heart disease with heart failure; F17.290 Nicotine dependence, other tobacco product, uncomplicated; I48.0 Paroxysmal atrial fibrillation; F12.90 Cannabis use, unspecified, uncomplicated; K42.9 Umbilical hernia without obstruction or gangrene; B19.20 Unspecified viral hepatitis C without hepatic coma; Z91.19 Patient's noncompliance with other medical treatment and regimen; E66.9 Obesity, unspecified; Z68.27 Body mass index [BMI] 27.0-27.9, adult; Z79.01 Long term (current) use of anticoagulants; Z79.51 Long term (current) use of inhaled steroids; I08.2 Rheumatic disorders of both aortic and tricuspid valves; K40.90 Unilateral inguinal hernia, without obstruction or gangrene, not specified as recurrent; B96.89 Other specified bacterial agents as the cause of diseases classified elsewhere; R41.82 Altered mental status, unspecified; R91.8 Other nonspecific abnormal finding of lung field; E87.5 Hyperkalemia; E83.42 Hypomagnesemia; D64.9 Anemia, unspecified; G47.33 Obstructive sleep apnea (adult) (pediatric)
CPT/HCPCS: 36415; 36416; 36600; 71045; 74176; 80048; 80051; 80053; 81001; 81003; 82140; 82330; 82805; 82962; 83735; 83880; 84100; 84443; 84484; 85025; 85347; 85378; 85610; 85730; 86140; 87040; 87077; 87086; 87205; 87426; 92920; 93005; 93306; 93454; 93571; 94640; 94660; 96365; 96372; 96375; 96376; 97165; 99285; C1725; C1769; C1887; C1894; J0696; J1630; J1644; J1815; J1940; J2060; J2250; J2270; J2405; J2930; J3010; J3475; J3490; J3535; J7030; J7512; J7626; Q0163; Q3014; Q9967

== ENCOUNTER 2021-03-29 12:05 | Inpatient (IN) | payer MEDICARE, MEDICAID, SELFPAY ==
--- NOTE | 2021-03-29 12:11 | ED_ITS ---
HPI - Weakness General: Chief complaint: Abdominal Pain Stated complaint: GENERALIZED WEAKNESS Time Seen by Provider: 03/29/21 12:11 Source: patient Mode of arrival: EMS History of Present Illness: HPI Narrative: 75-year-old male with a history of COPD, heart failure and coronary artery disease was just recently discharged from this hospital after being admitted for NSTEMI and uncompensated heart failure. Reports that he still has general weakness, his legs are sore and swollen, his hernia is tender with palpation, and he just does not feel any better. He feels the same as when he left the hospital. Denies any fever. His breathing and cough is at baseline. He still gets occasional chest pain, not worse than usual. He has been eating and drinking. Last BM was this morning. No vomiting. His son sets his medication out every day form, and he has been taking the pills. Complaint: generalized weakness and lack of energy Onset (ago): day(s) Location: generalized Context: new medication and recent illness Associated symptoms: Reports chest pain and easy bruising; Denies chills, fever(s), nausea or vomiting Review of Systems General: Reports: 10 or more systems reviewed and unremarkable except in HPI and below Const: Reports: body aches, fatigue and malaise; Denies: fever(s), chills, change in appetite or change in weight Card: Reports: chest pain, edema, swelling of feet/ankles, dyspnea on exertion, orthopnea and leg pain with exertion Resp: Reports: dyspnea, productive cough, wheezing and chest congestion; Denies: change in phlegm color GI: Reports: abdominal pain; Denies: nausea or vomiting Skin/Breast: Denies: rash, pruritus or erythema Endo: Denies: polyuria or polydipsia Juan C/Lymph: Reports: easy bruising and easy bleeding PFSH ED PFSH: Medical History Abnormal liver enzymes Acute decompensated heart failure Improved with IV diuresis Acute exacerbation of chronic obstructive airways disease Back pain COPD (chronic obstructive pulmonary disease) COPD exacerbation Coronary artery disease GERD (gastroesophageal reflux disease) Hyperglycemia Hypertension Incisional hernia Insomnia Non-compliant behavior Right inguinal hernia Surgical History H/O exploratory laparotomy H/O laminectomy History of carpal tunnel surgery History of cholecystectomy S/P laparoscopic appendectomy Family History Father Cancer Other Hypertension Social History Smoking and tobacco status: smoker, details unknown e-cigarettes E-Cigarette Details: e-cigarette Second hand smoke exposure: Yes Smoking risk assessment/counseling performed?: Yes Alcohol intake: former Year of sobriety/quit date alcohol: 6 years ago Former alcohol use details: Heavy alcohol use Desire information about alcohol rehabilitation?: No Counseling given: No Desire information about substance/drug rehabilitation?: No Counseling given: No Caregiver/support person: Yes Lives independently: No Household members: family and children Housing: House Marital status: Number of children: 3 service: No Current occupational status: retired History of recent travel: No Current gender identity: Male Physical Exam Const: COMMON NORMALS: no acute distress and patient oriented x3 GENERAL APPEARANCE: cooperative and frail appearing; not in distress and not diaphoretic ORIENTATION/CONSCIOUSNESS: Yes awake HENMT: COMMON NORMALS: normocephalic and atraumatic HEAD & SCALP: normocephalic and atraumatic FACE & SINUS: normal facial exam and face symmetric Resp: EFFORT & INSPECTION: Yes able to speak in complete sentences, No respiratory distress, Yes audible wheezes and No tripod positioning AUSCULTATION: crackles, rales, rhonchi, wheezes and bronchovesicular breath sounds Cardio: COMMON NORMALS: regular rate and regular rhythm RATE: regular rate RHYTHM: regular rhythm GI: COMMON NORMALS: Soft to palpation INSPECTION: No Abdominal wall edema and No Fluid wave present PALPATION: Yes Soft to palpation, Yes Tenderness to palpation present (GI) Details: LLQ and Yes Hernia present (Large ventral hernia, soft ,mildly tender to palpation.) ventral and other (No rebound or guarding.) PERCUSSION: no fluid wave Extremity: GENERAL: Yes edema (Bilateral lower extremity edema, left worse than right, 2+ pitting) Neuro: COMMON NORMALS: patient oriented x3, CN's II-XII intact bilaterally, moves all extremities and no focal motor deficits Skin: COMMON NORMALS: no rashes or lesions noted and no wounds GENERAL SKIN EXAM: no rashes or lesions noted and dry skin Course Vital Signs: Vital signs: Vital Signs Temperature 97.9 F 03/29/21 12:20 Pulse Rate 99 03/29/21 12:20 Respiratory Rate 22 H 03/29/21 12:20 Blood Pressure 121/88 03/29/21 12:20 Pulse Oximetry 98 03/29/21 12:20 MDM - Weakness MDM Narrative: Medical decision making narrative: 75-year-old male returning to the ER with generalized weakness, continued chest and abdominal pain. On review of his records, he was recently discharged from a 4-day admission where he underwent PCI with stent placement, treated for left lower leg cellulitis, UTI, EF 55%, moderate aortic stenosis 2 cm lung nodule likely metastatic. Long history of abdominal wall hernia containing loops of small bowel; states that his pain is worse than usual, however, on exam his abdomen is soft, he is eating and drinking, so my suspicion for incarcerated hernia is low. we will check lactic acid and CBC, and further evaluate with imaging if indicated. He is quite debilitated, he does live alone with family members a check on him often. The option of skilled nursing placement was discussed while he was in the hospital this last time, but he wanted to go home and be with his family for Hope. He still does not want to go to a skilled nursing. He refused further attempts to draw labs He requested lunch, pain medication, and a working TV. He is stable for discharge home. Medical Records: Attestation: I reviewed the patient's medical records. Lab Data: Labs: Lab Results 03/29/21 03/29/21 03/29/21 12:13 12:30 12:30 WBC 10.1 10^3/uL H 10 ^3/uL (4.0-10.0) RBC 3.20 10^6/uL L 10 ^6/uL (4.1-5.3) Hgb 10.9 g/dL L g/dL (11.7-16.6) Hct 34.3 % L % (42.0-52.0) MCV 107.2 fl H fl (80-94) MCH 34.1 pg H pg (28.0-34.0) MCHC 31.8 g/dL g/dL (30.0-36.0) RDW 14.2 % % (12.1-15.1) Plt Count 156 10^3/cmm 10^3 /cmm (130-400) MPV 11.7 fL H fL (7.4-10.4) Neut % (Auto) 63.9 % % Lymph % (Auto) 14.6 % % [place] % (Auto) 16.8 % % Eos % (Auto) 2.6 % % Baso % (Auto) 0.2 % % Neut # (Auto) 6.48 10^3/uL 10^3 /uL (1.8-7.7) Lymph # (Auto) 1.5 10^3/uL 10^3/ uL (0.8-4.8) [place] # (Auto) 1.7 10^3/uL H 10^ 3/uL (0.2-0.9) Eos # (Auto) 0.3 10^3/uL 10^3/ uL (0.0-0.8) Baso # (Auto) 0.0 10^3/uL 10^3/ uL (0.0-0.1) Nucleated RBC % (a uto) 0 % % Nucleated RBCs # 0.0 /100WBC /100W BC Sodium Cancelled Potassium Cancelled Chloride Cancelled Carbon Dioxide Cancelled Anion Gap Cancelled BUN Cancelled Creatinine Cancelled GFR Calculation Cancelled Glucose Cancelled Calculated Osmolal ity Cancelled Lactic Acid Cancelled Calcium Cancelled Magnesium Cancelled Total Bilirubin Cancelled AST Cancelled ALT Cancelled Alkaline Phosphata se Cancelled NT-Pro-B Natriuret Pep Cancelled Total Protein Cancelled Albumin Cancelled Globulin Cancelled EKG Data^: EKG 1: EKG interpretation date: 03/29/21 EKG interpretation time: 12:41 Prior EKG tracings: available for review Interpretation: A. fib, rate 99, NO ST elevations. Resolution of previous T wave changes Discharge Plan Discharge Patient Disposition: Home Clinical Impression: Periumbilical hernia, Hypoxemia requiring supplemental oxygen, Bilateral lower extremity edema Abdominal ascites Qualifiers: Ascites type: other type Qualified Code(s): R18.8 - Other ascites Condition: Stable Prescriptions: No Action (DME) Wheel chair with oxygen clamp See Rx Instructions .Route .MEDSUPPLY Qty: 1 RF: 0 albuterol sulfate 2.5 mg /3 mL (0.083 %) solution for nebulization 2.5 mg INHALATION Q4H PRN (Reason: shortness of breath or wheezing) Qty: 540 RF: 5 folic acid 1 mg tablet 1 mg PO DAILY 30 Days Qty: 30 RF: 5 nitroglycerin [Nitrostat] 0.4 mg Tablet, Sublingual 0.4 mg SUBLINGUAL Q5M PRN (Reason: Chest Pain) 3 Days Qty: 3 RF: 0 Wixela Inhub 500-50 mcg/dose Blister With Device 1 inh INHALATION BID RF: 0 lisinopril 20 mg tablet 20 mg PO QAM RF: 0 Hold Instructions: Resume on 04/04/21. budesonide 0.5 mg/2 mL suspension for nebulization 0.5 mg INHALATION BID PRN (Reason: ext med history shows last filled 07/02/20 30d/s) RF: 0 Miralax 17 gram/dose powder 17 gm PO DAILY PRN (Reason: Constipation) RF: 0 ProAir HFA 90 mcg/actuation HFA aerosol inhaler 2 inh inhalation Q4H PRN (Reason: Shortness Of Breath) RF: 0 Perforomist 20 mcg/2 mL solution for nebulization 2 ml INHALATION Q12H PRN (Reason: ext med history shows last filled 07/02/20 30d/s) RF: 0 Eliquis 5 mg tablet 5 mg PO BID RF: 0 clopidogrel 75 mg Tablet 75 mg PO DAILY 30 Days Qty: 30 RF: 0 metoprolol tartrate 50 mg tablet 25 mg PO Q12H Qty: 60 RF: 5 DILT-XR 180 mg Capsule,Ext.Rel 24h Degradable 180 mg PO DAILY 30 Days Qty: 30 RF: 3 isosorbide mononitrate 30 mg Tablet Extended Release 24 Hr 30 mg PO DAILY 30 Days Qty: 30 RF: 3 nitroglycerin 0.4 mg Tablet, Sublingual 0.4 mg sublingual Q5M PRN (Reason: Chest Pain) 30 Days Qty: 30 RF: 0 Lasix 40 mg tablet 40 mg PO DAILY Qty: 30 RF: 3 levofloxacin 750 mg tablet 750 mg PO DAILY 10 Days Qty: 10 RF: 0 Tessalon Perles 100 mg capsule 100 mg PO TID Qty: 20 RF: 0 Discharge Orders: Discharge ED (Routine); Ordered 03/29/21 Ordered By: Jazmin Holman Referrals: Jason Mak DO [Primary Care Provider] - Discharge Diet: Advance as tolerated Discharge Activity: Resume usual activity Patient Instructions: Abdominal Hernia, Leg Edema (ED) Activity Restrictions/Additional Instructions: Followup with your Heart doctor and primary care doctor in the next 5 days. Keep your legs elevated and apply compression bandages to help with swelling. Coding Level of Care Code ED Marble Finisher for Andresg Fwd Exam Comprehensive
--- NOTE | 2021-03-29 12:13 | ECG_ITS ---
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 Measurements Intervals [place] Rate: 99 P: AR: QRS: 77 QRSD: 91 T: 104 QT: 347 QTc: 447 Interpretive Statements ATRIAL FIBRILLATION ABNORMAL RHYTHM ECG Compared to ECG 03/20/2021 05:29:13 Atrial flutter no longer present T-wave abnormality no longer present Possible ischemia no longer present Electronically Signed On 03-30-2021 0:02:55 DISPLAY DIRECTOR by Jeannie Ibarra M.D. [email or web address] Winescren[facility] community hospitalInvoy Technologiessumma health barberton campus.[employer]/[id number]
[2021-03-29 12:20] VITALS: BP 121/88; PULSE 99; RESP 22; TEMP 36.6; O2SAT 98; BMI 27.2
[2021-03-29] MEDS: HYDROcodone-acetaminophen 7.5-325 mg Tablet 1 TAB PO (13:03)
[2021-03-29 13:26] LABS: Basophils % 0.2 %; Eosinophils # 0.3 10^3/uL (0.0-0.8); Eosinophils % 2.6 %; Hematocrit 34.3 % (42.0-52.0); Hemoglobin 10.9 g/dL (11.7-16.6); Lymphocytes # 1.5 10^3/uL (0.8-4.8); Lymphocytes % 14.6 %; Mean Corpuscular HGB Conc 31.8 g/dL (30.0-36.0); Mean Corpuscular Hemoglobin 34.1 pg (28.0-34.0); Mean Corpuscular Volume 107.2 fl (80-94); Mean Platelet Volume 11.7 fL (7.4-10.4); Monocytes # 1.7 10^3/uL (0.2-0.9); Monocytes % 16.8 %; Neutrophils # 6.48 10^3/uL (1.8-7.7); Neutrophils % 63.9 %; Nucleated Red Blood Cells % 0 %; Platelet Count 156 10^3/cmm (130-400); Red Cell Distribution Width 14.2 % (12.1-15.1); White Blood Count 10.1 10^3/uL (4.0-10.0)
--- NOTE | 2021-03-29 13:58 | CT_ITS ---
WS: [id number] CT ABDOMEN PELVIS TECHNIQUE: Noncontrast CT of the abdomen and pelvis with coronal and sagittal reformatted images. CLINICAL INFORMATION: r/o incarcerated hernia COMPARISON: CT March 23, 2021 DLP: 1685.[address] scans at [facility] use at least one of these dose optimization techniques: automated e xposure control; mA and/or kV adjustment per patient size (includes targeted exams where dose is matc hed to clinical indication); or iterative reconstruction. FINDINGS: Right lower lobe pulmonary nodules suspicious for metastatic disease largest measuring 2.0 CM. This i s unchanged since the recent examination. Additional smaller right middle lobe nodules. Subsegmental atelectasis left lower lobe. Stable chronic left adrenal mass. Small right adrenal nodule is unchange d. Cirrhotic configuration of the liver. Cholecystectomy clips. Small amount perihepatic ascites. No rmal GE junction. Small pericardial effusion. Normal noncontrast spleen. Normal caliber abdominal aor ta. Mild aortic calcification. Bilateral renal cortical atrophy. Stable left renal cortical cysts. No hydronephrosis in either kidne y.Right TIN with beam hardening artifact degrades images in the pelvis. Small to moderate amount of f ree fluid in the pelvis. [place] left ventral abdominal wall hernia containing loops of small bowel with some surrounding fl uid. No evidence of obstruction or strangulation. Additional small right periumbilical hernia with he rniated omental fat. No herniated bowel in this location. This is unchanged from previous. Right inguinal hernia with fluid and nonobstructed small bowel unchanged from previous. Pedicle screw fixation L4-5 with interbody fusion graft. Hypertrophic changes lumbar spine. CT/CT abdomen pelvis wo con [id number] IMPRESSION: 1. Large [place] ventral left abdominal wall hernia containing small bowel. Surrounding fluid is new from previous although no evidence of bowel obstructio n or strangulation. 2. Tiny fat-containing right periumbilical hernia with herniated omental fat u nchanged. 3. Right inguinal hernia with fluid and nonobstructed small bowel unchanged. 4. Axiby-vb-rtepgljv amount of free fluid in the pelvis. 5. Cirrhotic liver with a small amount of perihepatic and perisplenic ascites. 6. Stable suspected metastatic pulmonary nodules in the right lower lobe and r ight middle lobe. 7. Stable chronic left adrenal mass. Stable smaller right adrenal nodule. Asci travis.
[2021-03-29 14:08] LABS: Slide Review Slide Review Perform
--- NOTE | 2021-03-29 18:00 | CTR_ITS ---
PROCEDURE INFORMATION: Exam: CT Chest Without Contrast; Diagnostic Exam date and time: 03/29/2021 6:00 PM Age: 75 years old Clinical indication: Shortness of breath; Patient HX: Smoker, copd; Additional info: Pulmonary nodules TECHNIQUE: Imaging protocol: Diagnostic computed tomography of the chest without contrast. Radiation optimization: All CT scans at this facility use at least one of these dose optimization techniques: automated exposure control; mA and/or kV adjustment per patient size (includes targeted exams where dose is matched to clinical indication); or iterative reconstruction. COMPARISON: CT chest abd pel wo con 07/13/2019 7:36 PM RADIATION DOSE METRICS: Total DLP (mGy-cm): 1045.15 FINDINGS: Lungs: Severe centrilobular emphysema. Stable 4 mm right apical nodule, series 2, image 11. Slightly larger 6 mm nodule in the peripheral right middle lobe, image 41. Three adjacent nodules measuring up to 3 mm are unchanged. Significantly larger 2.8 cm spiculated nodule in the right lower lobe, image 38. Mild atelectasis or scarring in the posterior right lower lobe. Stable 5 mm left lower lobe nodule, image 29. Stable 5 mm left upper lobe nodule, image 33. Small focus of probable scarring in the anterolateral left upper lobe, new since the prior study. Pleural spaces: Unremarkable. No pneumothorax. No pleural effusion. Heart: Unremarkable. No cardiomegaly. No pericardial effusion. Aorta: Unremarkable. No aortic aneurysm. Lymph nodes: Unremarkable. No enlarged lymph nodes. Gallbladder and bile ducts: Cholecystectomy. Adrenal glands: Larger 3.3 cm partially calcified nodule in the left adrenal gland. New 2.0 cm nodule in the body of the right adrenal gland. Intraperitoneal space: Mild ascites. Bones/joints: Stable mild L1 compression fracture. No new fracture. No lytic or destructive bone lesion. Soft tissues: Unremarkable. CT/CT chest wo con [id number] IMPRESSION: 1. Significantly larger 2.8 cm spiculated nodule in the right lower lobe. Highly suspicious nodule(s). Consider non-emergent PET/CT, or tissue sampling.(Reference: Cindy) 2. Slightly larger 6 mm right middle lobe nodule, concerning for metastatic disease. 3. Additional small nodules in both lungs are unchanged. 4. Larger left and new right adrenal nodules. This is concerning for metastatic disease. References: MacMahon H, et al. Guidelines for Management of Incidental Pulmonary Nodules Detected on CT Images: From the Fleischner Society 2017. Radiology. 2017;284(1):228-243. COMMENTS: Consistent with the [place] [employer]'s Incidental Findings Committee white paper (J Am Maurice Radiol 2017): For any incidental adrenal lesion greater than 1 cm but less than 4 cm classified in this report as benign, likely benign, or containing fat (including classification as an adenoma or myelolipoma), no follow-up imaging is recommended per consensus recommendations based on imaging criteria. Further lab evaluation could be pursued if warranted based on clinical findings.
--- NOTE | 2021-03-29 18:13 | ECG_ITS ---
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 Measurements Intervals [place] Rate: 126 P: [place]: QRS: 63 QRSD: 89 T: 90 QT: 275 QTc: 399 Interpretive Statements ATRIAL FIBRILLATION WITH RAPID VENTRICULAR RESPONSE LOW QRS VOLTAGE IN EXTREMITY LEADS [QRS DEFLECTION < 0.5 mV IN LIMB LEADS] POSSIBLE ANTERIOR MYOCARDIAL INFARCTION , PROBABLY OLD [30 ms Q WAVE IN V3/V4, OR R < 0.2 mV IN V4] ABNORMAL RHYTHM ECG Compared to ECG 03/29/2021 12:41:51 Low QRS voltage now present Myocardial infarct finding now present Electronically Signed On 03-30-2021 0:06:42 BOILER ERECTOR by Jeannie Ibarra M.D. [id number]
--- NOTE | 2021-03-29 18:22 | PM.HP ---
Providers/Chief Complaint Primary Care Provider: Jason Mak DO Chief Complaint: GENERALIZED WEAKNESS History of Present Illness Robert Torres is a 75 year old male with a past medical history of atrial fibrillation on heparin drip, CAD s/p PTCA, no history of stenting, history of COPD on 3 L, diastolic and systolic CHF, hypertension, history of abdominal wall hernia, history of recent hospitalization for CAD status post angioplasty, discharged on aspirin, Eliquis, who presents [facility] due to weakness, deconditioning, shortness of breath, lower extremity edema. Patient tells me that he has been experiencing increasing bilateral extremity edema, increased swelling, increased shortness of breath with exertion. Denies chest pain, denies any palpitations, tells me that he is taking the medication as prescribed. In the emergency room patient has declined any further blood work, so his CMP and BMP and troponins are so so far unknown. I encouraged patient to perform blood work, he agreed, his CT of his abdomen pelvis did show pulmonary nodules, he is a smoker, will do CT of the chest. In addition patient reports weakness, he tells me that his family cannot take care of him, he tells me that he thinks he might have to go to [facility] for rehab. His ventral hernia is also bothering him more than usual, he had a CT scan that did not show any obstruction, and ventral hernia is reducible, wide open. Review of Systems Const: Denies: fever(s) Eyes: Denies: change in vision or blurry vision ENMT: Denies: nasal congestion Card: Reports: swelling of feet/ankles; Denies: chest pain or palpitations Resp: Reports: dyspnea; Denies: productive cough, non-productive cough or wheezing GI: Denies: abdominal pain, nausea, vomiting, hematemesis, diarrhea, constipation, hematochezia or melena : Denies: flank pain, difficulty urinating, dysuria or urinary frequency Musc: Denies: neck pain or back pain Skin/Breast: Denies: rash Neuro: Denies: headache(s), dizziness or vertigo Psych: Denies: anxiety or depression Endo: Denies: polyuria or polydipsia Medications/Allergies Home Medications Medication Instructions Recorded Confirmed Last Taken Type nitroglycerin [Nitrostat] 0.4 mg SUBLINGUAL Q5M PRN 3 Days 08/08/19 03/17/21 Unknown Rx #3 tab Wheel chair with oxygen clamp #1 ea 07/01/20 03/17/21 Unknown Rx albuterol sulfate 2.5 mg INHALATION Q4H PRN #540 ml 07/01/20 03/17/21 Unknown Rx folic acid 1 mg tablet 1 mg PO DAILY 30 Days #30 tab 07/01/20 03/17/21 Unknown Rx Eliquis 5 mg PO BID 03/17/21 03/17/21 Unknown History Miralax 17 gm PO DAILY PRN 03/17/21 03/17/21 Unknown History Perforomist 2 ml INHALATION Q12H PRN 03/17/21 03/17/21 Unknown History ProAir HFA 2 inh INHALATION Q4H PRN 03/17/21 03/17/21 Unknown History Wixela Inhub 1 inh INHALATION BID 03/17/21 03/17/21 Unknown History budesonide 0.5 mg INHALATION BID PRN 03/17/21 03/17/21 Unknown History lisinopril 20 mg PO QAM 03/17/21 03/17/21 Unknown History clopidogrel 75 mg PO DAILY 30 Days #30 tab 03/24/21 Unknown Rx diltiazem HCl [DILT-XR] 180 mg PO DAILY 30 Days #30 cap 03/24/21 Unknown Rx isosorbide mononitrate 30 mg PO DAILY 30 Days #30 tab 03/24/21 Unknown Rx metoprolol tartrate 25 mg PO Q12H #60 tab 03/24/21 03/17/21 Unknown Rx nitroglycerin 0.4 mg SUBLINGUAL Q5M PRN 30 Days 03/24/21 Unknown Rx #30 tab benzonatate [Tessalon Perles] 100 mg PO TID #20 cap 03/26/21 Unknown Rx furosemide [Lasix] 40 mg PO DAILY #30 tab 03/26/21 Unknown Rx levofloxacin 750 mg PO DAILY 10 Days #10 tab 03/26/21 Unknown Rx Allergies Allergy/AdvReac Type Severity Reaction Status Date / Time methadone Allergy Intermediate unknnown Verified 08/26/19 12:56 PFSH Acute PFSH: Medical History Abnormal liver enzymes Acute decompensated heart failure Improved with IV diuresis Acute exacerbation of chronic obstructive airways disease Back pain COPD (chronic obstructive pulmonary disease) COPD exacerbation Coronary artery disease GERD (gastroesophageal reflux disease) Hyperglycemia Hypertension Incisional hernia Insomnia Non-compliant behavior Right inguinal hernia Surgical History H/O exploratory laparotomy H/O laminectomy History of carpal tunnel surgery History of cholecystectomy S/P laparoscopic appendectomy Family History Father Cancer Other Hypertension Social History Smoking and tobacco status: smoker, details unknown e-cigarettes E-Cigarette Details: e-cigarette Second hand smoke exposure: Yes Smoking risk assessment/counseling performed?: Yes Alcohol intake: former Year of sobriety/quit date alcohol: 6 years ago Former alcohol use details: Heavy alcohol use Desire information about alcohol rehabilitation?: No Counseling given: No Desire information about substance/drug rehabilitation?: No Counseling given: No Caregiver/support person: Yes Lives independently: No Household members: family and children Housing: House Marital status: Number of children: 3 service: No Current occupational status: retired History of recent travel: No Current gender identity: Male Vitals/I&O/Wt Last Vital Signs Temp 97.9 F 03/29/21 12:20 Pulse 99 03/29/21 12:20 Resp 22 H 03/29/21 12:20 BP 121/88 03/29/21 12:20 Pulse Ox 98 03/29/21 12:20 Weight last 48 hrs Weight 86.183 kg Physical Exam Const: COMMON NORMALS: no acute distress and patient oriented x3 HENMT: COMMON NORMALS: normocephalic HEAD & SCALP: normocephalic Eye: COMMON NORMALS: Equal, round and reactive pupils present and EOMs intact bilaterally GENERAL EYE: appearance normal, both eyes and all related structures PUPIL: Yes Equal, round and reactive pupils present Neck/C-Spine: COMMON NORMALS: full ROM and no lymphadenopathy THYROID: Thyroid normal Lymph: LYMPHATIC: no lymphadenopathy noted Resp: COMMON NORMALS: normal respiratory effort, No retractions, No use of accessory muscles and clear to auscultation bilaterally AUSCULTATION: crackles Cardio: COMMON NORMALS: regular rate, regular rhythm, S1 normal heart sound present, S2 normal heart sound present, No gallops present (Cardio), No clicks present (Cardio) and No murmurs present (Cardio) RATE: regular rate RHYTHM: regular rhythm HEART SOUNDS: S1 normal heart sound present and S2 normal heart sound present GI: COMMON NORMALS: Normal to inspection, nondistended, normoactive bowel sounds present, Soft to palpation and No hepatosplenomegaly present PALPATION: Yes Soft to palpation and Yes No hepatosplenomegaly present Extremity: COMMON NORMALS: normal to inspection and full ROM NARRATIVE EXTREMITY EXAM: 2+pitting edema bilaterally left calf swelling Neuro: COMMON NORMALS: patient oriented x3, CN's II-XII intact bilaterally, moves all extremities and no focal motor deficits Psych: COMMON NORMALS: mental status grossly normal, Normal thought process present and cooperative THOUGHT PROCESS: Normal thought process present Data : 03/29/21 12:13 03/29/21 12:30 A&P Assessment and plan (1) Acute systolic heart failure: -Acute CHF exacerbation, systolic and diastolic -2D echo done during the hospital stay: Showed normal LV cavity and systolic function, LVEF of 55%, dilated RV, with moderately decreased systolic function,Mild to moderate aortic valve stenosis, mean gradient 12.7 mmHg, KERRY 1.1 cm square -Has crackles on exam, bilateral from edema -Encouraged blood work -Lasix 40 mg IV twice daily, monitor potassium, monitor creatinine -Given pulmonary nodules, will do CT of the chest -Flu restrictions 1500 cc -BNP, cardiac troponin -ventral hernia, large [place] ventral left abdominal wall hernia containing small bowel. Surrounding fluid is new from previous although no evidence of bowel obstruction or strangulation. Tiny fat-containing right periumbilical hernia with herniated omental fat unchanged. -reducible -no evidence of obectruction -mild pain acute hepatitis C, liver cirrhosis atrial fibrillation, eliquis COPD on 3-4L, diastolic CHF, as above NSTEMI, S/P CAG And PTCA ( ostial moderate 40 to 50% in stenosis which was eccentric IFR was performed which was 0.93 and not significant, He was also noted to have significant mid and distal calcified PDA lesions. Both this lesion were treated with balloon angioplasty. 80 to 90% lesions were reduced to 40 to 50%, no chest pain deconditioning, pt/ot full code eliquis for dvt ppx Status: Acute (2) Bilateral lower extremity edema: Status: Acute (3) Atrial fibrillation: Status: Acute Qualifiers: Atrial fibrillation type: paroxysmal Qualified Code(s): I48.0 - Paroxysmal atrial fibrillation (4) Non-ST elevation NE (NSTEMI): Status: Acute (5) Hypoxemia requiring supplemental oxygen: Status: Chronic (6) Hypertension: Status: Chronic Qualifiers: Hypertension type: primary hypertension Qualified Code(s): I10 - Essential (primary) hypertension (7) COPD (chronic obstructive pulmonary disease): Status: Chronic (8) Hepatitis C: Status: Acute (9) Lung nodule: Status: Acute (10) Hyponatremia: Status: Acute (11) Abdominal ascites: Status: Acute Qualifiers: Ascites type: other type Qualified Code(s): R18.8 - Other ascites Attestations Medical Necessity Statement*: Patient requires hospitalization, inpatient, greater than 2 midnights for shortness of breath secondary to acute systolic and diastolic CHF Coding Level of Care Code Acute Field Services Manager for [facility] Fwd Diagnoses Acute systolic heart failure I50.21 Bilateral lower extremity edema R60.0 Atrial fibrillation I48.0 Atrial fibrillation type: paroxysmal Non-ST elevation NE (NSTEMI) I21.4 Hypoxemia requiring supplemental oxygen R09.02; Z99.81 Hypertension I10 Hypertension type: primary hypertension COPD (chronic obstructive pulmonary disease) J44.9 Hepatitis C B19.20 Lung nodule R91.1 Hyponatremia E87.1 Abdominal ascites R18.8 Ascites type: other type
[2021-03-29 19:00] LABS: Add Urine Microscopic? YES; Bilirubin Urine Neg (Negative); Blood Urine Neg (Negative); Glucose Urine UA Norm (Normal); Ketones Urine Negative (Negative); Leukocyte Esterase Urine Negative (Negative); Nitrate Urine Negative (Negative); Protein Urine 1+ (Negative); Specific Gravity, Urine 1.015 (1.005-1.030); Urine Appearance Clear (CLEAR); Urine Color Yellow (Yellow); Urobilinogen Urine 4 mg/dL (Negative); pH Urine 7 (5-7)
[2021-03-29 19:01] LABS: Add Urine Culture? No; Bacteria Urine TRACE /hpf; RBC Urine 0-4 /hpf (0-2); WBC Urine 0-4 /hpf (0-5)
[2021-03-29] MEDS: HYDROcodone-acetaminophen 5-325 mg Tablet 1 TAB PO (19:09)
[2021-03-29] MEDS: FUROsemide 10 mg/mL SDV 4mL 40 MG IVP (19:10)
[2021-03-29 19:13] LABS: Basophils % 0.3 %; Eosinophils # 0.3 10^3/uL (0.0-0.8); Eosinophils % 2.2 %; Hematocrit 35.9 % (42.0-52.0); Hemoglobin 11.2 g/dL (11.7-16.6); Lymphocytes # 2.1 10^3/uL (0.8-4.8); Lymphocytes % 18.2 %; Mean Corpuscular HGB Conc 31.2 g/dL (30.0-36.0); Mean Corpuscular Hemoglobin 33.2 pg (28.0-34.0); Mean Corpuscular Volume 106.5 fl (80-94); Mean Platelet Volume 11.1 fL (7.4-10.4); Monocytes # 2.2 10^3/uL (0.2-0.9); Monocytes % 19.8 %; Neutrophils # 6.48 10^3/uL (1.8-7.7); Neutrophils % 57.1 %; Nucleated Red Blood Cells % 0 %; Platelet Count 187 10^3/cmm (130-400); Red Blood Count 3.37 10^6/uL (4.1-5.3); Red Cell Distribution Width 14.1 % (12.1-15.1); White Blood Count 11.3 10^3/uL (4.0-10.0)
[2021-03-29 19:38] LABS: Troponin(5th) Baseline 71 ng/L (0-15)
[2021-03-29 19:46] LABS: Alanine Aminotransferase 67 U/L (0-41); Albumin Level 2.8 g/dL (3.5-5.2); Alkaline Phosphatase 153 IU/L (40-130); Blood Urea Nitrogen 17 mg/dL (8-23); Calcium 7.5 mg/dL (8.5-10.5); Carbon Dioxide 28 mmol/L (22-29); Chloride 100 mmol/L (98-107); Globulin 4.5 g/dL (1.3-4.6); Glucose 133 mg/dL (65-115); Magnesium 1.9 mg/dL (1.7-2.3); NT Pro B Type Natriuretic Pept 2014 pg/mL (0-125); Osmolality Calculated 285 mOsm/kg (285-295); Phosphorus 2.4 mg/dL (2.5-4.5); Sodium 136 mmol/L (136-145); Total Bilirubin 0.5 mg/dL (0.15-1.2); Total Protein 7.3 g/dL (6.6-8.7)
[2021-03-29 19:47] LABS: Anion Gap 13.5 (5-19); Aspartate Amino Transferase 73 U/L (0-40); Potassium 5.5 mmol/L (3.5-5.1)
--- NOTE | 2021-03-29 20:13 | ECG_ITS ---
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 Measurements Intervals [place] Rate: 140 P: [place]: QRS: 37 QRSD: 94 T: 90 QT: 274 QTc: 419 Interpretive Statements ATRIAL FIBRILLATION WITH RAPID VENTRICULAR RESPONSE MINIMAL ST DEPRESSION [0.025+ mV ST DEPRESSION] ABNORMAL RHYTHM ECG Compared to ECG 03/29/2021 19:06:37 ST (T wave) deviation now present Myocardial infarct finding no longer present Electronically Signed On 03-30-2021 0:17:20 V BELT SKIVER by Jeannie Ibarra M.D. [id number]
[2021-03-29] MEDS: metoprolol tartrate 25 mg Tablet PO (20:47)
[2021-03-29] MEDS: atorvastatin 40 mg Tablet PO (20:47)
[2021-03-29] MEDS: apixaban 5 mg Tablet PO (20:47)
[2021-03-29 21:38] VITALS: BP 147/94; PULSE 89; RESP 21; TEMP 36.6; O2SAT 100
[2021-03-29 21:39] VITALS: BP 147/94; PULSE 89; RESP 21; TEMP 36.6; O2SAT 100
[2021-03-29 21:52] LABS: Troponin 5 2HR 66.17 ng/L (0-15)
[2021-03-29 21:55] LABS: Troponin 5 2HR Delta -4.83 ABS# (0-10)
[2021-03-29] MEDS: acetaminophen 325 mg Tablet 650 MG PO (22:10)
[2021-03-29 23:37] VITALS: PULSE 92; RESP 19; TEMP 36.6; O2SAT 100
[2021-03-30] VITALS (11 sets, daily range): BP systolic 134–148; BP diastolic 71–100; PULSE 78–111; RESP 17–20; TEMP 36.6–36.9; O2SAT 91–100; BMI 27.2
--- NOTE | 2021-03-30 00:13 | ECG_ITS ---
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 Measurements Intervals [place] Rate: 122 P: [place]: QRS: 66 QRSD: 83 T: 80 QT: 283 QTc: 404 Interpretive Statements ATRIAL FLUTTER/TACHYCARDIA WITH RAPID VENTRICULAR RESPONSE POSSIBLE ANTERIOR MYOCARDIAL INFARCTION , PROBABLY OLD [30 ms Q WAVE IN V3/V4, OR R < 0.2 mV IN V4] ABNORMAL RHYTHM ECG Compared to ECG 03/29/2021 20:28:38 Myocardial infarct finding now present Atrial fibrillation no longer present ST (T wave) deviation no longer present Electronically Signed On 03-30-2021 0:18:08 CSR TECHNICIAN by Jeannie Ibarra M.D. [id number]
--- NOTE | 2021-03-30 03:22 | PC.NURSE ---
Patient is constantly on his call light requesting something to help with his breathing, something to help him sleep, or wanting something for anxiety. Patient refuses to lay back in bed, and explains that he must sit on the side of the bed, with his nasal cannula in his mouth. Provider has been notified awaiting new orders.
[2021-03-30] MEDS: LORazepam 2 mg/mL INJ 1 mL 0.5 MG IVP (03:48)
[2021-03-30 04:43] LABS: Basophils % 0.2 %; Eosinophils # 0.3 10^3/uL (0.0-0.8); Eosinophils % 2.4 %; Hematocrit 36.3 % (42.0-52.0); Hemoglobin 11.5 g/dL (11.7-16.6); Lymphocytes # 2.2 10^3/uL (0.8-4.8); Lymphocytes % 18.4 %; Mean Corpuscular HGB Conc 31.7 g/dL (30.0-36.0); Mean Corpuscular Hemoglobin 33.7 pg (28.0-34.0); Mean Corpuscular Volume 106.5 fl (80-94); Mean Platelet Volume 10.9 fL (7.4-10.4); Monocytes # 2.3 10^3/uL (0.2-0.9); Monocytes % 19.6 %; Neutrophils % 57.8 %; Nucleated Red Blood Cells % 0 %; Platelet Count 190 10^3/cmm (130-400); Red Blood Count 3.41 10^6/uL (4.1-5.3); White Blood Count 11.9 10^3/uL (4.0-10.0)
[2021-03-30 05:07] LABS: Alanine Aminotransferase 67 U/L (0-41); Albumin Level 2.9 g/dL (3.5-5.2); Alkaline Phosphatase 154 IU/L (40-130); Anion Gap 9.9 (5-19); Aspartate Amino Transferase 68 U/L (0-40); Blood Urea Nitrogen 20 mg/dL (8-23); Calcium 7.9 mg/dL (8.5-10.5); Carbon Dioxide 32 mmol/L (22-29); Chloride 98 mmol/L (98-107); Globulin 5.1 g/dL (1.3-4.6); Glucose 91 mg/dL (65-115); Magnesium 1.7 mg/dL (1.7-2.3); Osmolality Calculated 282 mOsm/kg (285-295); Phosphorus 2.2 mg/dL (2.5-4.5); Potassium 4.9 mmol/L (3.5-5.1); Sodium 135 mmol/L (136-145); Thyroid Stimulating Hormone 7.51 uIU/mL (0.27-4.20); Total Bilirubin 0.6 mg/dL (0.15-1.2)
[2021-03-30] MEDS: ipratropium-albuterol 3 mL Neb INHALATION ×2 (08:12→21:36)
[2021-03-30] MEDS: clopidogrel 75 mg Tablet PO (09:45)
[2021-03-30] MEDS: isosorbide mononitrate ER 30 mg Tablet PO (09:45)
[2021-03-30] MEDS: pantoprazole DR 40 mg Tablet PO (09:45)
[2021-03-30] MEDS: dilTIAZem ER (24HR) 180 mg Capsule PO (09:46)
[2021-03-30] MEDS: FUROsemide 10 mg/mL SDV 4mL 40 MG IVP ×2 (09:46→17:52)
[2021-03-30] MEDS: folic acid 1 mg Tablet PO (09:46)
[2021-03-30] MEDS: metoprolol tartrate 25 mg Tablet PO ×2 (09:48→21:14)
[2021-03-30] MEDS: apixaban 5 mg Tablet PO ×2 (09:48→21:14)
[2021-03-30] MEDS: ALPRAZolam 0.5 mg Tablet 0.25 MG PO (14:50)
[2021-03-30] MEDS: HYDROcodone-acetaminophen 5-325 mg Tablet 1 TAB PO (14:50)
--- NOTE | 2021-03-30 17:11 | PM.PN ---
Subjective Subjective: Interval history: Patient was seen this morning, I discussed patient's CT scan findings, findings concerning for possible lung cancer, 2.8 cm spiculated nodule in the right lower lobe, with satellite lesion in the middle lobe, he tells me that his father from lung cancer in his early 40s I discussed with him outpatient pulmonary follow-up, he tells me that he still feels short of breath, continues to have bilateral from edema, Vitals/I&O/Wt Last Vital Signs Temp 98.4 F 03/30/21 15:14 Pulse 80 03/30/21 15:14 Resp 17 03/30/21 15:14 BP 134/88 03/30/21 15:14 Pulse Ox 100 03/30/21 15:14 Weight last 48 hrs Weight 86.183 kg Weight 86.183 kg Physical Exam Const: COMMON NORMALS: no acute distress and patient oriented x3 Resp: COMMON NORMALS: normal respiratory effort, No retractions and No use of accessory muscles AUSCULTATION: crackles Cardio: COMMON NORMALS: regular rate, regular rhythm, S1 normal heart sound present and S2 normal heart sound present RATE: regular rate RHYTHM: regular rhythm HEART SOUNDS: S1 normal heart sound present and S2 normal heart sound present GI: COMMON NORMALS: Normal to inspection, nondistended, normoactive bowel sounds present, Soft to palpation and non-tender PALPATION: Yes Soft to palpation OTHER: Large abdominal wall hernia Extremity: NARRATIVE EXTREMITY EXAM: 2+ pitting edema bilateral lower extremities Left lower extremity wrapped and bandaged, with weeping Neuro: COMMON NORMALS: patient oriented x3 Psych: COMMON NORMALS: mental status grossly normal Data : 03/30/21 04:24 03/30/21 04:24 A&P Assessment and plan (1) Acute systolic heart failure: -Acute CHF exacerbation, systolic and diastolic -2D echo done during the hospital stay: Showed normal LV cavity and systolic function, LVEF of 55%, dilated RV, with moderately decreased systolic function,Mild to moderate aortic valve stenosis, mean gradient 12.7 mmHg, KERRY 1.1 cm square -Has crackles on exam, bilateral from edema -Lasix 40 mg IV twice daily, monitor potassium, monitor creatinine -Flu restrictions 1500 cc -NSTEMI -Baseline troponin 71, 6-hour 73 -No significant delta troponin, no chest pain complaints, no acute ST-T wave changes -Likely secondary to to acute respiratory failure as above, but cannot rule out underlying cardiac etiology given recent history of angioplasty -He does report compliance with Plavix and Eliquis therapy 2.8 cm spiculated nodule in the right lower lobe, 6 mm right middle lobe nodule -History of smoking -Concerning for underlying lung malignancy -We will have patient follow-up with pulmonary service as outpatient -ventral hernia, large [place] ventral left abdominal wall hernia containing small bowel. Surrounding fluid is new from previous although no evidence of bowel obstruction or strangulation. Tiny fat-containing right periumbilical hernia with herniated omental fat unchanged. 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 Both this lesion were treated with balloon angioplasty. 80 to 90% lesions were reduced to 40 to 50%, no chest pain deconditioning, pt/ot full code eliquis for dvt ppx Status: Acute (2) Bilateral lower extremity edema: Status: Acute (3) Atrial fibrillation: Status: Acute Qualifiers: Atrial fibrillation type: paroxysmal Qualified Code(s): I48.0 - Paroxysmal atrial fibrillation (4) Non-ST elevation [place] (NSTEMI): Status: Acute (5) Hypoxemia requiring supplemental oxygen: Status: Chronic (6) Hypertension: Status: Chronic Qualifiers: Hypertension type: primary hypertension Qualified Code(s): I10 - Essential (primary) hypertension (7) COPD (chronic obstructive pulmonary disease): Status: Chronic (8) Hepatitis C: Status: Acute (9) Lung nodule: Status: Acute (10) Hyponatremia: Status: Acute (11) Abdominal ascites: Status: Acute Qualifiers: Ascites type: other type Qualified Code(s): R18.8 - Other ascites Attestations Medical Necessity Statement*: Patient requires hospitalization for fluid overload, CHF exacerbation Coding Level of Care Code Acute Customer Resolution Specialist for [facility] Fwd Diagnoses Acute systolic heart failure I50.21 Bilateral lower extremity edema R60.0 Atrial fibrillation I48.0 Atrial fibrillation type: paroxysmal Non-ST elevation [place] (NSTEMI) I21.4 Hypoxemia requiring supplemental oxygen R09.02; Z99.81 Hypertension I10 Hypertension type: primary hypertension COPD (chronic obstructive pulmonary disease) J44.9 Hepatitis C B19.20 Lung nodule R91.1 Hyponatremia E87.1 Abdominal ascites R18.8 Ascites type: other type
--- NOTE | 2021-03-30 18:13 | USCV_ITS ---
Robert Torres Age: 75 Gender: M : 1945 Exam Date: 03/30/2021 09:32 Ordering Phys: Kristofer Powers MD Technologist: Kelly Austin Exam Location: [facility] [place] Indication: SWOLLEN LEGS HISTORY: Swollen Red Legs PROCEDURES: The venous duplex Doppler examination of both lower extremities was performed in the standard fashion. The following venous structures were evaluated: common femoral vein, profunda vein, proximal portion of the greater saphenous vein, superficial femoral vein, and the popliteal vein. In addition, the posterior tibial veins were evaluated. Serial compression, augmentation maneuvers, and spectral Doppler flow evaluation were performed. FINDINGS: Normal 2-D Doppler and augmentation and compressibility throughout the lower extremity venous structures. Additional imaging through the proximal calf veins also reveals no thrombus. Limited evaluation of the greater saphenous vein is patent with no thrombus.. Edema noted in ankles and lymph nodes rt clark. CONCLUSIONS No evidence of right lower extremity DVT. No evidence of left lower extremity DVT. Prominent lymph nodes right inguinal nonspecific but likely reactive Sherif Murphy MD (Electronically Signed) Final Date: 30 March 2021 10:14 S
--- NOTE | 2021-03-30 19:05 | PC.NURSE ---
[facility].
[2021-03-30] MEDS: atorvastatin 40 mg Tablet PO (21:14)
[2021-03-30] MEDS: nicotine 14 mg Patch 1 PATCH TRANSDERMA (21:14)
[2021-03-31] VITALS (10 sets, daily range): BP systolic 93–138; BP diastolic 54–91; PULSE 62–89; RESP 16–20; TEMP 36.4–36.9; O2SAT 92–100
[2021-03-31] MEDS: ipratropium-albuterol 3 mL Neb INHALATION ×4 (02:33→20:26)
[2021-03-31] MEDS: levothyroxine 25 mcg Tablet PO (05:26)
[2021-03-31] MEDS: FUROsemide 10 mg/mL SDV 4mL 40 MG IVP (05:57)
[2021-03-31 06:02] LABS: Basophils % 0.4 %; Eosinophils # 0.2 10^3/uL (0.0-0.8); Eosinophils % 2.5 %; Hematocrit 30.5 % (42.0-52.0); Lymphocytes % 20.9 %; Mean Corpuscular HGB Conc 32.8 g/dL (30.0-36.0); Mean Corpuscular Volume 103.7 fl (80-94); Mean Platelet Volume 11.1 fL (7.4-10.4); Monocytes # 1.9 10^3/uL (0.2-0.9); Monocytes % 20.2 %; Neutrophils # 5.12 10^3/uL (1.8-7.7); Neutrophils % 54.2 %; Nucleated Red Blood Cells % 0 %; Platelet Count 175 10^3/cmm (130-400); Red Blood Count 2.94 10^6/uL (4.1-5.3); Red Cell Distribution Width 13.8 % (12.1-15.1); White Blood Count 9.5 10^3/uL (4.0-10.0)
[2021-03-31 06:25] LABS: Alanine Aminotransferase 58 U/L (0-41); Albumin Level 2.3 g/dL (3.5-5.2); Alkaline Phosphatase 144 IU/L (40-130); Anion Gap 14.2 (5-19); Aspartate Amino Transferase 68 U/L (0-40); Blood Urea Nitrogen 20 mg/dL (8-23); Calcium 7.2 mg/dL (8.5-10.5); Carbon Dioxide 27 mmol/L (22-29); Chloride 97 mmol/L (98-107); Globulin 4.3 g/dL (1.3-4.6); Glucose 134 mg/dL (65-115); Magnesium 1.6 mg/dL (1.7-2.3); Osmolality Calculated 283 mOsm/kg (285-295); Phosphorus 2.4 mg/dL (2.5-4.5); Potassium 4.2 mmol/L (3.5-5.1); Sodium 134 mmol/L (136-145); Total Bilirubin 0.5 mg/dL (0.15-1.2); Total Protein 6.6 g/dL (6.6-8.7)
[2021-03-31 06:33] LABS: NT Pro B Type Natriuretic Pept 1689 pg/mL (0-125)
[2021-03-31] MEDS: dilTIAZem ER (24HR) 180 mg Capsule PO (08:53)
[2021-03-31] MEDS: ALPRAZolam 0.5 mg Tablet 0.25 MG PO ×2 (08:53→17:41)
[2021-03-31] MEDS: folic acid 1 mg Tablet PO (08:53)
[2021-03-31] MEDS: isosorbide mononitrate ER 30 mg Tablet PO (08:53)
[2021-03-31] MEDS: metOLazone 5 MG Tablet 10 MG PO (08:53)
[2021-03-31] MEDS: apixaban 5 mg Tablet PO ×2 (08:53→19:54)
[2021-03-31] MEDS: polyethylene glycol 3350 Pkt 17 gm PO (08:53)
[2021-03-31] MEDS: clopidogrel 75 mg Tablet PO (08:54)
[2021-03-31] MEDS: pantoprazole DR 40 mg Tablet PO (08:54)
[2021-03-31] MEDS: metoprolol tartrate 25 mg Tablet PO (08:56)
[2021-03-31] MEDS: magnesium sulfate premix 2 GM/50 ML PIGGYBACK IV (08:58)
--- NOTE | 2021-03-31 10:41 | PC.CHAP ---
Pastoral Care Encounter/Spiritual Assessment Type of Contact [] Declined boom stick man visit [] Patient/Family/Request visit [] Outpatient visit [] Follow-up visit [] Physician referral [] Code/Alert [x] Routine visit [] Staff referral [] Actively dying [] Patient sleeping [] Family support [] [] Out of room [] Palliative care [] [x] Receiving care in room [] Pre-surgical visit [] Trauma [] Long length of stay [] ICU visit [] Other: Relational/Emotional Strength [x] Patient feels connected with others/family/visitors/staff [] Distress [] Loneliness/isolation [] Abandonment Spirituality of Patient [x] Person of Karen [] Attends Congregation of their Karen [x] Believes in Prayer [] Reads Bible or Confucianism materials [] There are Spiritual issues to be addressed Chemical Process Analyst Interventions [x] Prayer [x] Active listening [x] Non-anxious presence [x] Spiritual/emotional support [] Crisis/trauma care [x] Spiritual counseling [] Bereavement support [] Provided bereavement packet [] Provided Bible/devotional materials [] Provided toy/stuffed animal, coloring book to patient or family member [] Provided Communion [] Anointing/[place] [] Salvation [x] Completed spiritual assessment [] Other: Impact on Illness or Injury [] Angry [] Fearful [x] Anxious [] Often cries [] Exhaustion [] Unable to work [] Unable to attend protestant [] Unable to walk/stand [] Unable to read [] Unable to drive [] Unable to eat/drink [] Unable to sleep [] Unable to be with family [] Patient intubated [] Other: Summary waiting on doctors report feels good has some negative feelings will be going home soon Time spent with patient 10 mins
[2021-03-31] MEDS: HYDROcodone-acetaminophen 5-325 mg Tablet 1 TAB PO (15:11)
--- NOTE | 2021-03-31 17:00 | P.PN_ITS ---
Subjective Subjective: Interval history: Patient was seen this morning, he sitting up beside the bed, he tells me he is feeling better, is on 3 to 4 L, still having bilateral extremity edema but improving Vitals/I&O/Wt Last Vital Signs Temp 97.5 F L 03/31/21 15:35 Pulse 78 03/31/21 15:35 Resp 18 03/31/21 15:35 BP 100/54 03/31/21 15:35 Pulse Ox 100 03/31/21 15:35 03/31/21 03/31/21 03/31/21 06:59 14:59 22:59 Intake Total 1260 / 2580 770 / 770 0 / 770 Output Total 1500 / 2500 1800 / 1800 Balance -240 / 80 770 / 770 -1800 / -1030 Weight last 48 hrs Weight 86.183 kg Physical Exam Const: COMMON NORMALS: no acute distress and patient oriented x3 Resp: COMMON NORMALS: normal respiratory effort, No retractions, No use of accessory muscles and clear to auscultation bilaterally AUSCULTATION: clear to auscultation bilaterally Cardio: COMMON NORMALS: regular rate, regular rhythm, S1 normal heart sound present and S2 normal heart sound present RATE: regular rate RHYTHM: regul ar rhythm HEART SOUNDS: S1 normal heart sound present and S2 normal heart sound present GI: COMMON NORMALS: Normal to inspection, nondistended, normoactive bowel sounds present, Soft to palpation and non-tender PALPATION: Yes Soft to palpation OTHER: Large abdominal wall hernia Extremity: NARRATIVE EXTREMITY EXAM: Bilateral extremity edema, 2+ Neuro: COMMON NORMALS: patient oriented x3 Psych: COMMON NORMALS: mental status grossly normal Data : 03/31/21 05:13 03/31/21 05:13 Micro: Microbiology 03/29/21 18:25 Urine Culture - Preliminary Urine,Clean Catch A&P Assessment and plan (1) Acute systolic heart failure: -Acute CHF exacerbation, systolic and diastolic -2D echo done during the hospital stay: Showed normal LV cavity and systolic function, LVEF of 55%, dilated RV, with moderately decreased systolic function,Mild to moderate aortic valve stenosis, mean gradient 12.7 mmHg, KERRY 1.1 cm square -Bilateral lower extreme edema -Lasix 40 mg IV twice daily, 1 dose of metolazone today monitor potassium, monitor creatinine -Flu restrictions 1500 cc -NSTEMI -Baseline troponin 71, 6-hour 73 -No significant delta troponin, no chest pain complaints, no acute ST-T wave ch anges -Likely secondary to to acute respiratory failure as above, but cannot rule out underlying cardiac etiology given recent history of angioplasty -He does report compliance with Plavix and Eliquis therapy 2.8 cm spiculated nodule in the right lower lobe, 6 mm right middle lobe nodule -History of smoking -Concerning for underlying lung malignancy -We will have patient follow-up with pulmonary service as outpatient -ventral hernia, large widemouth ventral left abdominal wall hernia containing small bowel. Surrounding fluid is new from previous although no evidence of bowel obstruction or strangulation. Tiny fat-containing right periumbilical hernia with herniated omental fat unchanged. 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 Both this lesion were treated with balloon angioplasty. 80 to 90% lesions were reduced to 40 to 50%, no chest pain deconditioning, pt/ot full code eliquis for dvt ppx Status: Acute (2) Bilateral lower extremity edema: Status: Acute (3) Atrial fibrillation: Status: Acute Qualifiers: Atrial fibrillation type: paroxysmal Qualified Code(s): I48.0 - Paroxysmal atrial fibrillation (4) Non-ST elevation PA (NSTEMI): Status: Acute (5) Hypoxemia requiring supplemental oxygen: Status: Chronic (6) Hypertension: Status: Chronic Qualifiers: Hypertension type: primary hypertension Qualified Code(s): I10 - Essential (primary) hypertension (7) COPD (chronic obstructive pulmonary disease): Status: Chronic (8) Hepatitis C: Status: Acute (9) Lung nodule: Status: Acute (10) Hyponatremia: Status: Acute (11) Abdominal ascites: Status: Acute Qualifiers: Ascites type: other type Qualified Code(s): R18.8 - Other ascites Attestations Medical Necessity Statement*: Patient requires hospitalization for acute on chronic systolic diastolic CHF exacerbation Coding Level of Care Code Acute Airport Electrician for g Fwd Diagnoses Acute systolic heart failure I50.21 Bilateral lower extremity edema R60.0 Atrial fibrillation I48.0 Atrial fibrillation type: paroxysmal Non-ST elevation PA (NSTEMI) I21.4 Hypoxemia requiring supplemental oxygen R09.02; Z99.81 Hypertension I10 Hypertension type: primary hypertension COPD (chronic obstructive pulmonary disease) J44.9 Hepatitis C B19.20 Lung nodule R91.1 Hyponatremia E87.1 Abdominal ascites R18.8 Ascites type: other type
[2021-03-31] MEDS: FUROsemide 40 mg Tablet PO (17:52)
[2021-03-31] MEDS: atorvastatin 40 mg Tablet PO (19:52)
[2021-03-31] MEDS: acetaminophen 325 mg Tablet 650 MG PO (19:52)
[2021-04-01] VITALS (12 sets, daily range): BP systolic 108–132; BP diastolic 66–82; PULSE 72–96; RESP 16–22; TEMP 36.4–36.8; O2SAT 90–100
[2021-04-01] MEDS: ipratropium-albuterol 3 mL Neb INHALATION ×4 (02:28→20:14)
[2021-04-01 05:56] LABS: Basophils # 0.1 10^3/uL (0.0-0.1); Basophils % 0.7 %; Eosinophils # 0.3 10^3/uL (0.0-0.8); Eosinophils % 2.7 %; Hematocrit 31.9 % (42.0-52.0); Hemoglobin 10.7 g/dL (11.7-16.6); Lymphocytes # 2.5 10^3/uL (0.8-4.8); Lymphocytes % 26.3 %; Mean Corpuscular HGB Conc 33.5 g/dL (30.0-36.0); Mean Corpuscular Hemoglobin 36.1 pg (28.0-34.0); Mean Corpuscular Volume 107.8 fl (80-94); Mean Platelet Volume 10.8 fL (7.4-10.4); Monocytes # 1.9 10^3/uL (0.2-0.9); Neutrophils # 4.55 10^3/uL (1.8-7.7); Neutrophils % 48.8 %; Nucleated Red Blood Cells % 0 %; Platelet Count 189 10^3/cmm (130-400); Red Blood Count 2.96 10^6/uL (4.1-5.3); Red Cell Distribution Width 14.2 % (12.1-15.1); White Blood Count 9.3 10^3/uL (4.0-10.0)
[2021-04-01] MEDS: levothyroxine 25 mcg Tablet PO (06:09)
[2021-04-01 06:10] LABS: Alanine Aminotransferase 67 U/L (0-41); Albumin Level 2.9 g/dL (3.5-5.2); Alkaline Phosphatase 174 IU/L (40-130); Blood Urea Nitrogen 26 mg/dL (8-23); Calcium 7.9 mg/dL (8.5-10.5); Carbon Dioxide 33 mmol/L (22-29); Chloride 94 mmol/L (98-107); Creatinine Clr Calc Pharmacy 71.7504; Globulin 5.1 g/dL (1.3-4.6); Glucose 123 mg/dL (65-115); Magnesium 1.7 mg/dL (1.7-2.3); Osmolality Calculated 286 mOsm/kg (285-295); Sodium 135 mmol/L (136-145); Total Bilirubin 0.5 mg/dL (0.15-1.2)
[2021-04-01 06:11] LABS: Anion Gap 12.6 (5-19); Aspartate Amino Transferase 85 U/L (0-40); Potassium 4.6 mmol/L (3.5-5.1)
[2021-04-01 06:17] LABS: NT Pro B Type Natriuretic Pept 1011 pg/mL (0-125)
[2021-04-01] MEDS: metoprolol tartrate 25 mg Tablet PO ×2 (08:57→20:09)
[2021-04-01] MEDS: FUROsemide 40 mg Tablet PO (08:57)
[2021-04-01] MEDS: apixaban 5 mg Tablet PO ×2 (08:57→20:08)
[2021-04-01] MEDS: isosorbide mononitrate ER 30 mg Tablet PO (08:58)
[2021-04-01] MEDS: clopidogrel 75 mg Tablet PO (08:58)
[2021-04-01] MEDS: pantoprazole DR 40 mg Tablet PO (08:58)
[2021-04-01] MEDS: metOLazone 5 MG Tablet 10 MG PO (08:58)
[2021-04-01] MEDS: folic acid 1 mg Tablet PO (08:59)
[2021-04-01] MEDS: nicotine 14 mg Patch 1 PATCH TRANSDERMA (08:59)
[2021-04-01] MEDS: dilTIAZem ER (24HR) 180 mg Capsule PO (09:09)
[2021-04-01] MEDS: HYDROcodone-acetaminophen 5-325 mg Tablet 1 TAB PO ×2 (11:12→17:46)
--- NOTE | 2021-04-01 11:12 | PC.OT ---
OT TREATMENT ATTEMPTED. PATIENT REPORTS HE IS IN SIGNIFICANT PAIN; ABDOMEN. NURSE CALL ACTIVATED AND NURSING INFORMED. PATIENT ALSO STATES THAT HE IS TOO TIRED AT THIS TIME TO PARTICIPATE IN OT. WILL ATTEMPT AGAIN THIS AFTERNOON.
--- NOTE | 2021-04-01 12:41 | P.PN_ITS ---
Subjective Subjective: Interval history: Patient was seen this morning, continues to complain of lower extremity edema, and swelling, his IV was lost last night, he was switched to p.o. Lasix, continues to have complaints of shortness of breath and lower extremity edema, no chest pain, palpitations Vitals/I&O/Wt Last Vital Signs Temp 98.3 F 04/01/21 11:37 Pulse 72 04/01/21 11:37 Resp 16 04/01/21 11:37 BP 108/72 04/01/21 11:37 Pulse Ox 98 04/01/21 11:37 03/31/21 04/01/21 04/01/21 22:59 06:59 14:59 Intake Total 1200 / 1970 500 / 2470 240 / 240 Output Total 2615 / 2615 1415 / 4030 450 / 450 Balance -1415 / -645 -915 / -1560 -210 / -210 Weight last 48 hrs Weight 86.183 kg Physical Exam Const: COMMON NORMALS: no acute distress and patient oriented x3 Resp: COMMON NORMALS: normal respiratory effort, No retractions, No use of accessory muscles and clear to auscultation bilaterally AUSCULTATION: clear to auscultation bilaterally Cardio: COMMON NORMALS: regular rate, regular rhythm, S1 normal heart sound present and S2 normal heart sound present RATE: regular rate RHYTHM: regular rhythm HEART SOUNDS: S1 normal heart sound present and S2 normal heart sound present GI: COMMON NORMALS: Normal to inspection, nondistended, normoactive bowel sounds present, Soft to palpation and non-tender PALPATION: Yes Soft to palpation Extremity: NARRATIVE EXTREMITY EXAM: 2+ pitting edema bilateral extremities Neuro: COMMON NORMALS: patient oriented x3 Psych: COMMON NORMALS: mental status grossly normal Data : 04/01/21 05:16 04/01/21 05:16 Micro: Microbiology 03/29/21 18:25 Urine Culture - Final Urine,Clean Catch A&P Assessment and plan (1) Acute systolic heart failure: -Acute CHF exacerbation, systolic and diastolic -2D echo done during the hospital stay: Showed normal LV cavity and systolic function, LVEF of 55%, dilated RV, with moderately decreased systolic function,Mild to moderate aortic valve stenosis, mean gradient 12.7 mmHg, KERRY 1.1 cm square -Bilateral lower extreme edema -Switch to Bumex 1 mg twice daily, 1 dose of metolazone today monitor potassium, monitor creatinine -Flu restrictions 1500 cc --1.6 L -NSTEMI -Baseline troponin 71, 6-hour 73 -No significant delta troponin, no chest pain complaints, no acute ST-T wave changes -Likely secondary to to acute respiratory failure as above, but cannot rule out underlying cardiac etiology given recent history of angioplasty -He does report compliance with Plavix and Eliquis therapy 2.8 cm spiculated nodule in the right lower lobe, 6 mm right middle lobe nodule -History of smoking -Concerning for underlying lung malignancy -We will have patient follow-up with pulmonary service as outpatient -ventral hernia, large widemouth ventral left abdominal wall hernia containing small bowel. Surrounding fluid is new from previous although no evidence of bowel obstruction or strangulation. Tiny fat-containing right periumbilical her clarita with herniated omental fat unchanged. 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 Both this lesion were treated with balloon angioplasty. 80 to 90% lesions were reduced to 40 to 50%, no chest pain deconditioning, pt/ot full code eliquis for dvt ppx Status: Acute (2) Bilateral lower extremity edema: Status: Acute (3) Atrial fibrillation: Status: Acute Qualifiers: Atrial fibrillation type: paroxysmal Qualified Code(s): I48.0 - Paroxysmal atrial fibrillation (4) Non-ST elevation MD (NSTEMI): Status: Acute (5) Hypoxemia requiring supplemental oxygen: Status: Chronic (6) Hypertension: Status: Chronic Qualifiers: Hypertension type: primary hypertension Qualified Code(s): I10 - Essential (primary) hypertension (7) COPD (chronic obstructive pulmonary disease): Status: Chronic (8) Hepatitis C: Status: Acute (9) Lung nodule: Status: Acute (10) Hyponatremia: Status: Acute (11) Abdominal ascites: Status: Acute Qualifiers: Ascites type: other type Qualified Code(s): R18.8 - Other ascites Attestations Medical Necessity Statement*: Patient requires hospitalization for CHF exacerbation lower extremity edema Coding Level of Care Code Acute Clinical Documentation Specialist for Chg Fwd Diagnoses Acute systolic heart failure I50.21 Bilateral lower extremity edema R60.0 Atrial fibrillation I48.0 Atrial fibrillation type: paroxysmal Non-ST elevation MD (NSTEMI) I21.4 Hypoxemia requiring supplemental oxygen R09.02; Z99.81 Hypertension I10 Hypertension type: primary hypertension COPD (chronic obstructive pulmonary disease) J44.9 Hepatitis C B19.20 Lung nodule R91.1 Hyponatremia E87.1 Abdominal ascites R18.8 Ascites type: other type
[2021-04-01] MEDS: bumetanide 0.25 mg/mL SDV 4 mL 1 MG IVP ×2 (13:18→22:58)
--- NOTE | 2021-04-01 13:31 | PC.CHAP ---
Pastoral Care Encounter/Spiritual Assessment Type of Contact [] Declined splicing machine operator visit [] Patient/Family/Request visit [] Outpatient visit [] Follow-up visit [] Physician referral [] Code/Alert [xx] Routine visit [] Staff referral [] Actively dying [] Patient sleeping [] Family support [] [] Out of room [] Palliative care [] [] Receiving care in room [] Pre-surgical visit [] Trauma [] Long length of stay [] ICU visit [] Other: Relational/Emotional Strength [xx] Patient feels connected with others/family/visitors/staff [] Distress [] Loneliness/isolation [] Abandonment Spirituality of Patient [xx] Person of Karen [] Attends Protestant of their Karen [xx] Believes in Prayer [] Reads Bible or Christianity materials [] There are Spiritual issues to be addressed Guest Services Associate Interventions [xx] Prayer [xx] Active listening [xx] Non-anxious presence [] Spiritual/emotional support [] Crisis/trauma care [] Spiritual counseling [] Bereavement support [] Provided bereavement packet [] Provided Bible/devotional materials [] Provided toy/stuffed animal, coloring book to patient or family member [] Provided Communion [] Anointing/[place] [] Salvation [xx] Completed spiritual assessment [] Other: Impact on Illness or Injury [] Angry [] Fearful [] Anxious [] Often cries [] Exhaustion [] Unable to work [] Unable to attend holiness [] Unable to walk/stand [] Unable to read [] Unable to drive [] Unable to eat/drink [] Unable to sleep [] Unable to be with family [] Patient intubated [] Other: Summary Patient stated he is not feeling better. He asked for prayer. He was not too talkative. Time spent with patient 4 minutes
--- NOTE | 2021-04-01 14:56 | PC.OT ---
OT TREATMENT ATTEMPTED AGAIN THIS P.M. PATIENT KINDLY STATES THAT HE IS JUST NOT FEELING WELL TODAY AND DOES NOT WISH TO PARTICIPATE IN THERAPY TODAY.
[2021-04-01] MEDS: atorvastatin 40 mg Tablet PO (20:08)
[2021-04-01] MEDS: acetaminophen 325 mg Tablet 650 MG PO (20:08)
[2021-04-01] MEDS: ALPRAZolam 0.5 mg Tablet 0.25 MG PO (20:08)
[2021-04-02] VITALS (14 sets, daily range): BP systolic 101–124; BP diastolic 67–79; PULSE 62–91; RESP 16–22; TEMP 36.6–37.1; O2SAT 94–99
[2021-04-02] MEDS: ipratropium-albuterol 3 mL Neb INHALATION ×4 (03:12→21:12)
[2021-04-02 06:08] LABS: Basophils # 0.1 10^3/uL (0.0-0.1); Basophils % 0.6 %; Eosinophils # 0.3 10^3/uL (0.0-0.8); Eosinophils % 2.4 %; Hematocrit 30.4 % (42.0-52.0); Hemoglobin 10.6 g/dL (11.7-16.6); Lymphocytes # 2.8 10^3/uL (0.8-4.8); Lymphocytes % 25.2 %; Mean Corpuscular HGB Conc 34.9 g/dL (30.0-36.0); Mean Corpuscular Hemoglobin 37.3 pg (28.0-34.0); Monocytes % 18.2 %; Neutrophils # 5.74 10^3/uL (1.8-7.7); Neutrophils % 51.6 %; Nucleated Red Blood Cells % 0 %; Platelet Count 184 10^3/cmm (130-400); Red Blood Count 2.84 10^6/uL (4.1-5.3); White Blood Count 11.1 10^3/uL (4.0-10.0)
[2021-04-02] MEDS: levothyroxine 25 mcg Tablet PO (06:35)
[2021-04-02 06:40] LABS: Alanine Aminotransferase 64 U/L (0-41); Albumin Level 2.6 g/dL (3.5-5.2); Alkaline Phosphatase 162 IU/L (40-130); Anion Gap 14.1 (5-19); Aspartate Amino Transferase 95 U/L (0-40); Blood Urea Nitrogen 33 mg/dL (8-23); Calcium 8.1 mg/dL (8.5-10.5); Carbon Dioxide 34 mmol/L (22-29); Chloride 88 mmol/L (98-107); Globulin 4.7 g/dL (1.3-4.6); Glucose 86 mg/dL (65-115); Magnesium 1.4 mg/dL (1.7-2.3); NT Pro B Type Natriuretic Pept 999 pg/mL (0-125); Osmolality Calculated 281 mOsm/kg (285-295); Phosphorus 3.3 mg/dL (2.5-4.5); Potassium 4.1 mmol/L (3.5-5.1); Sodium 132 mmol/L (136-145); Total Bilirubin 0.5 mg/dL (0.15-1.2); Total Protein 7.3 g/dL (6.6-8.7)
--- NOTE | 2021-04-02 07:00 | XRR_ITS ---
PROCEDURE INFORMATION: Exam: XR Chest Exam date and time: 04/02/2021 7:00 AM Age: 75 years old Clinical indication: Shortness of breath; Additional info: SOB TECHNIQUE: Imaging protocol: XR of the chest. Views: 1 view. COMPARISON: CT chest con [id number] 03/29/2021 6:16 PM FINDINGS: Lungs: A 2.2 cm nodule is again seen in the right base. Otherwise lungs are clear. Pleural spaces: Unremarkable. No pleural effusion. No pneumothorax. Heart/Mediastinum: Unremarkable. No cardiomegaly. Bones/joints: Unremarkable. XR/XR chest 1V portable [id number] IMPRESSION: 1. The 2.2 cm nodule is again seen in the right base. 2. No other acute chest abnormality.
[2021-04-02] MEDS: polyethylene glycol 3350 Pkt 17 gm PO (08:22)
[2021-04-02] MEDS: HYDROcodone-acetaminophen 5-325 mg Tablet 1 TAB PO ×2 (08:22→18:39)
[2021-04-02] MEDS: nicotine 14 mg Patch 1 PATCH TRANSDERMA (08:23)
[2021-04-02] MEDS: clopidogrel 75 mg Tablet PO (08:24)
[2021-04-02] MEDS: magnesium sulfate premix 4 GM/100 ML PREMIX IV (08:45)
[2021-04-02] MEDS: isosorbide mononitrate ER 30 mg Tablet PO (08:46)
[2021-04-02] MEDS: apixaban 5 mg Tablet PO ×2 (08:46→20:24)
[2021-04-02] MEDS: folic acid 1 mg Tablet PO (08:46)
[2021-04-02] MEDS: dilTIAZem ER (24HR) 180 mg Capsule PO (08:46)
[2021-04-02] MEDS: ALPRAZolam 0.5 mg Tablet 0.25 MG PO ×2 (08:46→18:37)
[2021-04-02] MEDS: pantoprazole DR 40 mg Tablet PO (08:47)
[2021-04-02] MEDS: metoprolol tartrate 25 mg Tablet PO ×2 (08:50→20:24)
--- NOTE | 2021-04-02 09:19 | PC.SOCIAL ---
IMM Update Discussed Medicare rights with patient, verbalized understanding. Provided patient with a copy and place initialed, timed, dated copy in patient's chart.
[2021-04-02] MEDS: bumetanide 0.25 mg/mL SDV 4 mL 1 MG IVP ×2 (12:55→23:22)
[2021-04-02] MEDS: acetaminophen 325 mg Tablet 650 MG PO (13:01)
--- NOTE | 2021-04-02 16:55 | P.PN_ITS ---
Subjective Subjective: Interval history: Patient was sitting up to the side of bed this morning, tells me that he continues to feel weak, short of breath, still has lower extremity edema Vitals/I&O/Wt Last Vital Signs Temp 98 F 04/02/21 15:36 Pulse 79 04/02/21 16:18 Resp 20 H 04/02/21 16:14 BP 110/74 04/02/21 15:36 Pulse Ox 99 04/02/21 16:14 04/02/21 04/02/21 04/02/21 06:59 14:59 22:59 Intake Total 480 / 970 820 / 820 Output Total 2100 / 4750 575 / 575 650 / 1225 Balance -1620 / -3780 245 / 245 -650 / -405 Physical Exam Const: COMMON NORMALS: no acute distress and patient oriented x3 Resp: COMMON NORMALS: normal respiratory effort, No retractions and No use of accessory muscles AUSCULTATION: crackles Cardio: COMMON NORMALS: regular rate, regular rhythm, S1 normal heart sound present and S2 normal heart sound present RATE: regular rate RHYTHM: regular rhythm HEART SOUNDS: S1 normal heart sound present and S2 normal heart sound present GI: COMMON NORMALS: Normal to inspection, nondistended, normoactive bowel sounds present, Soft to palpation and non-tender PALPATION: Yes Soft to palpation Extremity: NARRATIVE EXTREMITY EXAM: 2+ pitting edema bilateral extremity Neuro: COMMON NORMALS: patient oriented x3 Psych: COMMON NORMALS: mental status grossly normal Data : 04/02/21 05:00 04/02/21 05:00 A&P Assessment and plan (1) Acute systolic heart failure: -Acute CHF exacerbation, systolic and diastolic -2D echo done during the hospital stay: Showed normal LV cavity and systolic function, LVEF of 55%, dilated RV, with moderately decreased systolic function,Mild to moderate aortic valve stenosis, mean gradient 12.7 mmHg, KERRY 1.1 cm square -Bilateral lower extreme edema -Blood Bumex 1 mg twice daily, 1 dose of metolazone today monitor potassium, monitor creatinine -Flu restrictions 1500 cc --5 L -NSTEMI -Baseline troponin 71, 6-hour 73 -No significant delta troponin, no chest pain complaints, no acute ST-T wave changes -Likely secondary to to acute respiratory failure as above, but cannot rule out underlying cardiac etiology given recent history of angioplasty -He does report compliance with Plavix and Eliquis therapy 2.8 cm spiculated nodule in the right lower lobe, 6 mm right middle lobe nodule -History of smoking -Concerning for underlying lung malignancy -We will have patient follow-up with pulmonary service as outpatient -ventral hernia, large widemouth ventral left abdominal wall hernia containing small bowel. Surrounding fluid is new from previous although no evidence of bowel obstruction or strangulation. Tiny fat-containing right periumbilical hernia with herniated omental fat unchanged. 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 Both this lesion were treated with balloon angioplasty. 80 to 90% lesions were reduced to 40 to 50%, no chest pain deconditioning, pt/ot full code eliquis for dvt ppx Status: Acute (2) Bilateral lower extremity edema: Status: Acute (3) Atrial fibrillation: Status: Acute Qualifiers: Atrial fibrillation type: paroxysmal Qualified Code(s): I48.0 - Paroxysmal atrial fibrillation (4) Non-ST elevation [place] (NSTEMI): Status: Acute (5) Hypoxemia requiring supplemental oxygen: Status: Chronic (6) Hypertension: Status: Chronic Qualifiers: Hypertension type: primary hypertension Qualified Code(s): I10 - Essential (primary) hypertension (7) COPD (chronic obstructive pulmonary disease): Status: Chronic (8) Hepatitis C: Status: Acute (9) Lung nodule: Status: Acute (10) Hyponatremia: Status: Acute (11) Abdominal ascites: Status: Acute Qualifiers: Ascites type: other type Qualified Code(s): R18.8 - Other ascites Attestations Medical Necessity Statement*: Patient requires hospitalization for acute systolic CHF or bilateral edema Coding Level of Care Code Acute Industrial Retrofit Designer for Chg Fwd Diagnoses Acute systolic heart failure I50.21 Bilateral lower extremity edema R60.0 Atrial fibrillation I48.0 Atrial fibrillation type: paroxysmal Non-ST elevation [place] (NSTEMI) I21.4 Hypoxemia requiring supplemental oxygen R09.02; Z99.81 Hypertension I10 Hypertension type: primary hypertension COPD (chronic obstructive pulmonary disease) J44.9 Hepatitis C B19.20 Lung nodule R91.1 Hyponatremia E87.1 Abdominal ascites R18.8 Ascites type: other type
[2021-04-02] MEDS: metOLazone 5 MG Tablet 10 MG PO (17:41)
[2021-04-02] MEDS: atorvastatin 40 mg Tablet PO (20:24)
[2021-04-03] VITALS (14 sets, daily range): BP systolic 98–125; BP diastolic 51–81; PULSE 55–93; RESP 16–20; TEMP 35.8–36.9; O2SAT 95–100
[2021-04-03] MEDS: ipratropium-albuterol 3 mL Neb INHALATION ×4 (02:58→21:04)
[2021-04-03] MEDS: levothyroxine 25 mcg Tablet PO (05:03)
[2021-04-03 06:31] LABS: Basophils # 0.1 10^3/uL (0.0-0.1); Basophils % 0.5 %; Eosinophils # 0.2 10^3/uL (0.0-0.8); Eosinophils % 1.7 %; Hematocrit 33.4 % (42.0-52.0); Lymphocytes # 2.1 10^3/uL (0.8-4.8); Lymphocytes % 18.2 %; Mean Corpuscular HGB Conc 35.9 g/dL (30.0-36.0); Mean Corpuscular Volume 105.7 fl (80-94); Mean Platelet Volume 11.2 fL (7.4-10.4); Monocytes # 1.6 10^3/uL (0.2-0.9); Monocytes % 13.9 %; Neutrophils # 7.62 10^3/uL (1.8-7.7); Neutrophils % 64.7 %; Nucleated Red Blood Cells % 0 %; Platelet Count 182 10^3/cmm (130-400); Red Blood Count 3.16 10^6/uL (4.1-5.3); Red Cell Distribution Width 14.3 % (12.1-15.1); White Blood Count 11.8 10^3/uL (4.0-10.0)
[2021-04-03 06:53] LABS: Alanine Aminotransferase 75 U/L (0-41); Alkaline Phosphatase 206 IU/L (40-130); Anion Gap 17.8 (5-19); Aspartate Amino Transferase 115 U/L (0-40); Blood Urea Nitrogen 37 mg/dL (8-23); Calcium 8.5 mg/dL (8.5-10.5); Carbon Dioxide 33 mmol/L (22-29); Chloride 88 mmol/L (98-107); Globulin 5.8 g/dL (1.3-4.6); Glucose 122 mg/dL (65-115); Magnesium 1.9 mg/dL (1.7-2.3); Osmolality Calculated 290 mOsm/kg (285-295); Phosphorus 2.9 mg/dL (2.5-4.5); Potassium 3.8 mmol/L (3.5-5.1); Sodium 135 mmol/L (136-145); Total Bilirubin 0.5 mg/dL (0.15-1.2); Total Protein 8.8 g/dL (6.6-8.7)
[2021-04-03 07:03] LABS: NT Pro B Type Natriuretic Pept 970 pg/mL (0-125)
[2021-04-03] MEDS: folic acid 1 mg Tablet PO (08:39)
[2021-04-03] MEDS: polyethylene glycol 3350 Pkt 17 gm PO (08:39)
[2021-04-03] MEDS: pantoprazole DR 40 mg Tablet PO (08:39)
[2021-04-03] MEDS: HYDROcodone-acetaminophen 5-325 mg Tablet 1 TAB PO ×3 (08:39→21:26)
[2021-04-03] MEDS: nicotine 14 mg Patch 1 PATCH TRANSDERMA (08:39)
[2021-04-03] MEDS: clopidogrel 75 mg Tablet PO (08:40)
[2021-04-03] MEDS: isosorbide mononitrate ER 30 mg Tablet PO (08:40)
[2021-04-03] MEDS: apixaban 5 mg Tablet PO ×2 (08:40→21:27)
[2021-04-03] MEDS: dilTIAZem ER (24HR) 180 mg Capsule PO (08:40)
[2021-04-03] MEDS: metoprolol tartrate 25 mg Tablet PO ×2 (08:44→21:26)
[2021-04-03] MEDS: acetaminophen 325 mg Tablet 650 MG PO ×2 (11:43→23:59)
[2021-04-03] MEDS: bumetanide 0.25 mg/mL SDV 4 mL 1 MG IVP (11:46)
[2021-04-03] MEDS: ALPRAZolam 0.5 mg Tablet 0.25 MG PO ×2 (14:55→22:59)
--- NOTE | 2021-04-03 14:56 | P.PN_ITS ---
Subjective Subjective: Interval history: Patient was seen this morning, had an uneventful night, I advised of compliance with fluid restrictions, his lower extreme edema is improving, shortness of breath is improving, Vitals/I&O/Wt Last Vital Signs Temp 97.6 F 04/03/21 12:00 Pulse 72 04/03/21 14:53 Resp 17 04/03/21 14:53 BP 102/51 04/03/21 12:00 Pulse Ox 98 04/03/21 14:53 04/02/21 04/03/21 04/03/21 22:59 06:59 14:59 Intake Total 0 / 820 240 / 1060 480 / 480 Output Total 1325 / 1900 2125 / 4025 400 / 400 Balance -1325 / -1080 -1885 / -2965 80 / 80 Physical Exam Const: COMMON NORMALS: no acute distress and patient oriented x3 Resp: COMMON NORMALS: normal respiratory effort, No retractions, No use of accessory muscles and clear to auscultation bilaterally AUSCULTATION: clear to auscultation bilaterally Cardio: COMMON NORMALS: regular rate, regular rhythm, S1 normal heart sound present and S2 normal heart sound present RATE: regular rate RHYTHM: regular rhythm HEART SOUNDS: S1 normal heart sound present and S2 normal heart sound present GI: COMMON NORMALS: Normal to inspection, nondistended, normoactive bowel sounds present, Soft to palpation and non-tender PALPATION: Yes Soft to palpation OTHER: Large abdominal wall hernia Extremity: NARRATIVE EXTREMITY EXAM: 1+ pitting edema Neuro: COMMON NORMALS: patient oriented x3 Psych: COMMON NORMALS: mental status grossly normal Data : 04/03/21 05:04 04/03/21 05:04 A&P Assessment and plan (1) Acute systolic heart failure: -Acute CHF exacerbation, systolic and diastolic -2D echo done during the hospital stay: Showed normal LV cavity and systolic function, LVEF of 55%, dilated RV, with moderately decreased systolic function,Mild to moderate aortic valve stenosis, mean gradient 12.7 mmHg, KERRY 1.1 cm square -Bilateral lower extreme edema -Bumex 1 mg twice daily, 1 dose of metolazone today monitor potassium, monitor creatinine -Flu restrictions 1500 cc --8 L -Likely discharge tomorrow -NSTEMI -Baseline troponin 71, 6-hour 73 -No significant delta troponin, no chest pain complaints, no acute ST-T wave changes -Likely secondary to to acute respiratory failure as above, but cannot rule out underlying cardiac etiology given recent history of angioplasty -He does report compliance with Plavix and Eliquis therapy 2.8 cm spiculated nodule in the right lower lobe, 6 mm right middle lobe nodule -History of smoking -Concerning for underlying lung malignancy -We will have patient follow-up with pulmonary service as outpatient -ventral hernia, large [place] ventral left abdominal wall hernia containing small bowel. Surrounding fluid is new from previous although no evidence of bowel obstruction or strangulation. Tiny fat-containing right periumbilical hernia with herniated omental fat unchanged. 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 Both this lesion were treated with balloon angioplasty. 80 to 90% lesions were reduced to 40 to 50%, no chest pain deconditioning, pt/ot full code eliquis for dvt ppx Status: Acute (2) Bilateral lower extremity edema: Status: Acute (3) Atrial fibrillation: Status: Acute Qualifiers: Atrial fibrillation type: paroxysmal Qualified Code(s): I48.0 - Paroxysmal atrial fibrillation (4) Non-ST elevation NV (NSTEMI): Status: Acute (5) Hypoxemia requiring supplemental oxygen: Status: Chronic (6) Hypertension: Status: Chronic Qualifiers: Hypertension type: primary hypertension Qualified Code(s): I10 - Essential (primary) hypertension (7) COPD (chronic obstructive pulmonary disease): Status: Chronic (8) Hepatitis C: Status: Acute (9) Lung nodule: Status: Acute (10) Hyponatremia: Status: Acute (11) Abdominal ascites: Status: Acute Qualifiers: Ascites type: other type Qualified Code(s): R18.8 - Other ascites Attestations Medical Necessity Statement*: Patient requires hospitalization for CHF exacerbation Coding Level of Care Code Acute Ophthalmic Technician Apprentice for Chg Fwd Diagnoses Acute systolic heart failure I50.21 Bilateral lower extremity edema R60.0 Atrial fibrillation I48.0 Atrial fibrillation type: paroxysmal Non-ST elevation NV (NSTEMI) I21.4 Hypoxemia requiring supplemental oxygen R09.02; Z99.81 Hypertension I10 Hypertension type: primary hypertension COPD (chronic obstructive pulmonary disease) J44.9 Hepatitis C B19.20 Lung nodule R91.1 Hyponatremia E87.1 Abdominal ascites R18.8 Ascites type: other type
[2021-04-03] MEDS: bumetanide 1 mg Tablet PO (21:26)
[2021-04-03] MEDS: atorvastatin 40 mg Tablet PO (21:27)
--- NOTE | 2021-04-03 23:12 | PC.NURSE ---
Patient would like door to remain open due to his claustrophobia. I explained to patient that I tested him for COVID and that we have to keep his door closed and treat him as a pending until we know the test result. Offered patient a fan, but he refused.
[2021-04-04] MEDS: HYDROcodone-acetaminophen 5-325 mg Tablet 1 TAB PO (02:21)
[2021-04-04 02:48] LABS: Adenovirus Not Detected (NOT DETECT); Chlamydia Pneumoniae Not Detected (NOT DETECT); Coronavirus 229E,HKU1,NL63,OC4 Not Detected (NOT DETECT); Human Metapneumovirus Not Detected (NOT DETECT); Human Rhinovirus/Enterovirus Not Detected (NOT DETECT); Influenza A Not Detected (NOT DETECT); Influenza A H1 Not Detected (NOT DETECT); Influenza A H1-2009 Not Detected (NOT DETECT); Influenza A H3 Not Detected (NOT DETECT); Influenza B Not Detected (NOT DETECT); Mycoplasma Pneumoniae Not Detected (NOT DETECT); Parainfluenza Virus Type 1 Not Detected (NOT DETECT); Parainfluenza Virus Type 2 Not Detected (NOT DETECT); Parainfluenza Virus Type 3 Not Detected (NOT DETECT); Parainfluenza Virus Type 4 Not Detected (NOT DETECT); Respiratory Syncytial Virus A Not Detected (NOT DETECT); Respiratory Syncytial Virus B Not Detected (NOT DETECT); SARS-COV-2 Not Detected (NOT DETECT)
[2021-04-04 04:00] VITALS: BP 116/58; BP 125/81; PULSE 71; PULSE 86; RESP 16; RESP 17; TEMP 36.5; TEMP 36.9; O2SAT 100; O2SAT 98
[2021-04-04 04:55] LABS: Basophils # 0.1 10^3/uL (0.0-0.1); Basophils % 0.6 %; Eosinophils # 0.2 10^3/uL (0.0-0.8); Eosinophils % 2.1 %; Hematocrit 30.7 % (42.0-52.0); Hemoglobin 11.2 g/dL (11.7-16.6); Lymphocytes # 2.6 10^3/uL (0.8-4.8); Lymphocytes % 22.6 %; Mean Corpuscular HGB Conc 36.5 g/dL (30.0-36.0); Mean Corpuscular Hemoglobin 38.8 pg (28.0-34.0); Mean Corpuscular Volume 106.2 fl (80-94); Mean Platelet Volume 11.2 fL (7.4-10.4); Monocytes # 1.7 10^3/uL (0.2-0.9); Monocytes % 15.3 %; Neutrophils # 6.58 10^3/uL (1.8-7.7); Neutrophils % 58.4 %; Nucleated Red Blood Cells % 0 %; Platelet Count 195 10^3/cmm (130-400); Red Blood Count 2.89 10^6/uL (4.1-5.3); Red Cell Distribution Width 14.9 % (12.1-15.1); White Blood Count 11.3 10^3/uL (4.0-10.0)
[2021-04-04 05:23] LABS: Alanine Aminotransferase 65 U/L (0-41); Albumin Level 2.8 g/dL (3.5-5.2); Alkaline Phosphatase 175 IU/L (40-130); Anion Gap 14.2 (5-19); Aspartate Amino Transferase 99 U/L (0-40); Blood Urea Nitrogen 46 mg/dL (8-23); Calcium 8.3 mg/dL (8.5-10.5); Carbon Dioxide 33 mmol/L (22-29); Chloride 90 mmol/L (98-107); Globulin 5.7 g/dL (1.3-4.6); Glucose 107 mg/dL (65-115); Magnesium 1.6 mg/dL (1.7-2.3); NT Pro B Type Natriuretic Pept 834 pg/mL (0-125); Osmolality Calculated 288 mOsm/kg (285-295); Phosphorus 3.8 mg/dL (2.5-4.5); Potassium 4.2 mmol/L (3.5-5.1); Sodium 133 mmol/L (136-145); Total Bilirubin 0.4 mg/dL (0.15-1.2); Total Protein 8.5 g/dL (6.6-8.7)
[2021-04-04] MEDS: levothyroxine 25 mcg Tablet PO (06:28)
[2021-04-04 07:20] VITALS: PULSE 81; RESP 18; O2SAT 95
[2021-04-04 07:24] VITALS: PULSE 83
[2021-04-04 07:25] VITALS: BP 125/74; PULSE 70; RESP 22; TEMP 36.3; O2SAT 97
[2021-04-04] MEDS: dilTIAZem ER (24HR) 180 mg Capsule PO (08:43)
[2021-04-04] MEDS: isosorbide mononitrate ER 30 mg Tablet PO (08:43)
[2021-04-04] MEDS: metoprolol tartrate 25 mg Tablet PO (08:43)
[2021-04-04] MEDS: polyethylene glycol 3350 Pkt 17 gm PO (08:43)
[2021-04-04] MEDS: clopidogrel 75 mg Tablet PO (08:43)
[2021-04-04] MEDS: apixaban 5 mg Tablet PO (08:43)
[2021-04-04] MEDS: pantoprazole DR 40 mg Tablet PO (08:43)
[2021-04-04] MEDS: nicotine 14 mg Patch 1 PATCH TRANSDERMA (08:44)
[2021-04-04] MEDS: folic acid 1 mg Tablet PO (08:44)
[2021-04-04] MEDS: bumetanide 1 mg Tablet PO (08:44)
--- NOTE | 2021-04-04 10:35 | PM.DCS ---
Discharge Providers Date of Admission: 03/30/21 02:23 Date of Discharge: April 04, 2021 Attending Provider at Admission: Kristofer Powers MD Attending Provider at Discharge: Anshu Arreola MD Primary Care Provider: Jason Mak DO Diagnoses at Discharge Discharge Diagnosis (1) Acute systolic heart failure: Status: Acute (2) Bilateral lower extremity edema: Status: Acute (3) Atrial fibrillation: Status: Acute Qualifiers: Atrial fibrillation type: paroxysmal Qualified Code(s): I48.0 - Paroxysmal atrial fibrillation (4) Non-ST elevation MD (NSTEMI): Status: Acute (5) Hypoxemia requiring supplemental oxygen: Status: Chronic (6) Hypertension: Status: Chronic Qualifiers: Hypertension type: primary hypertension Qualified Code(s): I10 - Essential (primary) hypertension (7) COPD (chronic obstructive pulmonary disease): Status: Chronic (8) Hepatitis C: Status: Acute (9) Lung nodule: Status: Acute (10) Hyponatremia: Status: Acute (11) Abdominal ascites: Status: Acute Qualifiers: Ascites type: other type Qualified Code(s): R18.8 - Other ascites Reason for Visit Reason for Visit: GENERALIZED WEAKNESS Hospital Course Hospital Course 75 year old male with a past medical history of atrial fibrillation on heparin drip, CAD s/p PTCA, no history of stenting, history of COPD on 3 L, diastolic and systolic CHF, hypertension, history of abdominal wall hernia, history of recent hospitalization for CAD status post angioplasty, discharged on aspirin, Eliquis, who presents [facility] due to weakness, deconditioning, shortness of breath, lower extremity edema.He was admitted for the management of decompensated HFrEF was kept on I.V Diuresis to which he responded well and at the time of discharge he was well compensated b/l l/e swelling had significantly reduced he was at his baseline oxygen requirement.Given the fact that he had significant weakness he was discharged to [facility],he has been continued on his hoem medications and lasix 40 mg po BID as well as po potassium has been added.He will follow as outpatient for the work up of pulmonary nodule and will continue to follow Cardiology as well as his PCP as outpatient.Patient has been discharged to [facility] in stable condition. Physical Exam Const: COMMON NORMALS: patient oriented x3 HENMT: COMMON NORMALS: normocephalic and atraumatic HEAD & SCALP: normocephalic and atraumatic Chest: CHEST: Yes Symmetrical chest wall rise Resp: COMMON NORMALS: normal respiratory effort and clear to auscultation bilaterally EFFORT & INSPECTION: Yes symmetric chest movement AUSCULTATION: clear to auscultation bilaterally Cardio: COMMON NORMALS: regular rate, regular rhythm, S1 normal heart sound present, S2 normal heart sound present, No gallops present (Cardio), No murmurs present (Cardio), No rub (Cardio) and Peripheral pulses 2+ throughout RATE: regular rate RHYTHM: regular rhythm HEART SOUNDS: S1 normal heart sound present and S2 normal heart sound present PERIPHERAL PULSES: Peripheral pulses 2+ throughout GI: COMMON NORMALS: Normal to inspection, nondistended, normoactive bowel sounds present, Soft to palpation, non-tender, No hepatosplenomegaly present and no masses AUSCULTATION: Yes normoactive bowel sounds PALPATION: Yes Soft to palpation and Yes No hepatosplenomegaly present RECTAL EXAM: Yes deferred Extremity: OTHER: 1 +B/L L/E PITTING EDEMA Neuro: COMMON NORMALS: patient oriented x3 Discharge Data Data Completed and Pending: Completed Studies During Hospitalization Category Date Time Status CT abdomen pelvis wo con [id number] Urge nt Cat Scan 03/29/21 13:[address] chest wo con 7 1250 Urgent Cat Scan 03/29/21 18:00 Completed XR chest 1V negrito ble [id number] Routine Exams 04/02/21 07:00 [place] [id number] Routin e Ultrasound 03/30/21 18:13 Completed Labs from last 24 hours 04/04/21 04/04/21 04/03/21 04:18 04:18 21:35 WBC 11.3 H RBC 2.89 L Hgb 11.2 L Hct 30.7 L MCV 106.2 H MCH 38.8 H MCHC 36.5 H RDW 14.9 Plt Count 195 MPV 11.2 H Neut % (Auto) 58.4 Lymph % (Auto) 22.6 Rhea % (Auto) 15.3 Eos % (Auto) 2.1 Baso % (Auto) 0.6 Neut # (Auto) 6.58 Lymph # (Auto) 2.6 Rhea # (Auto) 1.7 H Eos # (Auto) 0.2 Baso # (Auto) 0.1 Nucleated RBC % (a uto) 0 Nucleated RBCs # 0.0 Sodium 133 L Potassium 4.2 Chloride 90 L Carbon Dioxide 33 H Anion Gap 14.2 BUN 46 H Creatinine 1.2 GFR Calculation Not Reportable Glucose 107 Calculated Osmolal ity 288 Calcium 8.3 L Phosphorus 3.8 Magnesium 1.6 L Total Bilirubin 0.4 AST 99 H ALT 65 H Alkaline Phosphata se 175 H NT-Pro-B Natriuret Pep 834 H Total Protein 8.5 Albumin 2.8 L Globulin 5.7 H Coronavirus 229E ( PCR) Not detected SARS-CoV-2 (PCR) Not detected Vitals: Last Vital Signs Temp 97.4 F L 04/04/21 07:25 Pulse 70 04/04/21 07:25 Resp 22 H 04/04/21 07:25 BP 125/74 04/04/21 07:25 Pulse Ox 97 04/04/21 07:25 Discharge Plan Discharge Patient Disposition: Home Condition: Stable Prescriptions: New Klor-Con 20 mEq packet 20 meq PO DAILY Qty: 30 RF: 0 Continued (DME) Wheel chair with oxygen clamp See Rx Instructions .Route .MEDSUPPLY Qty: 1 RF: 0 folic acid 1 mg tablet 1 mg PO DAILY 30 Days Qty: 30 RF: 5 fluticasone propion-salmeterol [Wixela Inhub] 500-50 mcg/dose Blister With Device 1 inh INHALATION BID RF: 0 polyethylene glycol 3350 [Miralax] 17 gram/dose powder 17 gm PO DAILY PRN (Reason: Constipation) RF: 0 albuterol sulfate [ProAir HFA] 90 mcg/actuation HFA aerosol inhaler 2 inh inhalation Q4H PRN (Reason: Shortness Of Breath) RF: 0 Eliquis 5 mg tablet 5 mg PO BID RF: 0 clopidogrel 75 mg Tablet 75 mg PO DAILY MDD see pharmacy comment 30 Days Qty: 30 RF: 0 metoprolol tartrate 50 mg tablet 25 mg PO Q12H Qty: 60 RF: 5 diltiazem HCl [DILT-XR] 180 mg Capsule,Ext.Rel 24h Degradable 180 mg PO DAILY 30 Days Qty: 30 RF: 3 nitroglycerin 0.4 mg Tablet, Sublingual 0.4 mg sublingual Q5M PRN (Reason: Chest Pain) 30 Days Qty: 30 RF: 0 Changed Lasix 40 mg tablet 40 mg PO BID Qty: 60 RF: 3 Held lisinopril 20 mg tablet 20 mg PO QAM RF: 0 Hold Instructions: Resume on 04/04/21. Discontinued levofloxacin 750 mg tablet 750 mg PO DAILY 10 Days Qty: 10 RF: 0 Discharge Orders: Discharge Order (Routine); Ordered 04/04/21 Ordered By: Anshu Arreola Referrals: Jason Mak DO [Primary Care Provider] - 04/18/21 1:00 pm Datar,Charan Wei MD [Physician] - 04/19/21 9:45 am Harriet Christian FNP [Nurse Practitioner] - 04/12/21 10:30 am Discharge Diet: Advance as tolerated Discharge Activity: Resume usual activity Patient Instructions: Abdominal Hernia, Potassium Chloride (By mouth), Heart Attack (GEN), Leg Edema (ED), Opioid Safety Activity Restrictions/Additional Instructions: Followup with your Heart doctor and primary care doctor in the next 5 days. Keep your legs elevated and apply compression bandages to help with swelling. Discharge Attestations Time Spent in Discharge Care*: less than 30 min Specific Discharge Activities: educating patient, educating and/or supporting family/caregiver, discussing with pcp/other providers, discussing with bilingual patient support caseworker/social workers/dc planners, documenting/other paperwork and evaluating patient/reviewing data Status at Discharge: Cognitive status at discharge: cognitively intact, Behavioral status at discharge: cooperative, Quality Metrics Clinical Quality Measures During this hospital stay, did patient experience: None Coding Level of Care Code Acute Chg FW DC note Diagnoses Acute systolic heart failure I50.21 Bilateral lower extremity edema R60.0 Atrial fibrillation I48.0 Atrial fibrillation type: paroxysmal Non-ST elevation MD (NSTEMI) I21.4 Hypoxemia requiring supplemental oxygen R09.02; Z99.81 Hypertension I10 Hypertension type: primary hypertension COPD (chronic obstructive pulmonary disease) J44.9 Hepatitis C B19.20 Lung nodule R91.1 Hyponatremia E87.1 Abdominal ascites R18.8 Ascites type: other type
--- NOTE | 2021-04-04 10:58 | PC.OT ---
OT TREATMENT ATTEMPTED. PATIENT DECLINES TREATMENT THIS A.M. PATIENT STATES THAT HE HURTS ALL OVER AND WOULD LIKE PAIN MEDICATION; NURSING INFORMED. ALSO REQUESTS SOMETHING TO DRINK; IS ON A FLUID RESTRICTION; NURSE ALSO INFORMED OF PATIENT REQUEST. AGREEABLE TO MY ATTEMPT FOR TREATMENT THIS AFTERNOON.
--- NOTE | 2021-04-04 11:05 | PC.SOCIAL ---
IMM Updated Updated pt on IMM. No questions voiced. Provided pt a copy. Initialed, dated, & timed copy in chart.
[2021-04-04 12:00] VITALS: BP 119/83; PULSE 78; RESP 18; O2SAT 98
[2021-04-04 14:43] VITALS: BP 119/83; PULSE 78; RESP 18; O2SAT 98
== END 2021-04-04 12:15 | disposition skilled nursing facility (03) | DRG 280 ==
LOC: ER 20:48 → ER IP 03-30 02:23 → MEDSURG 03-30 14:08
PROVIDERS: Admitting Provider Family Medicine; Emergency Provider Family Medicine; PCP Family Medicine; Visit Provider Internal Medicine
DX: I11.0 Hypertensive heart disease with heart failure (principal); I50.43 Acute on chronic combined systolic (congestive) and diastolic (congestive) heart failure; I21.4 Non-ST elevation (NSTEMI) myocardial infarction; E87.1 Hypo-osmolality and hyponatremia; R18.8 Other ascites; B17.10 Acute hepatitis C without hepatic coma; I48.0 Paroxysmal atrial fibrillation; R91.1 Solitary pulmonary nodule; K43.9 Ventral hernia without obstruction or gangrene; R09.02 Hypoxemia; J44.9 Chronic obstructive pulmonary disease, unspecified; K21.9 Gastro-esophageal reflux disease without esophagitis; K74.60 Unspecified cirrhosis of liver; I25.10 Atherosclerotic heart disease of native coronary artery without angina pectoris; R53.81 Other malaise; F17.290 Nicotine dependence, other tobacco product, uncomplicated; E03.9 Hypothyroidism, unspecified; Z79.82 Long term (current) use of aspirin; Z79.01 Long term (current) use of anticoagulants; Z98.61 Coronary angioplasty status; Z80.1 Family history of malignant neoplasm of trachea, bronchus and lung
CPT/HCPCS: 36415; 71045; 71250; 74176; 80053; 81001; 83735; 83880; 84100; 84443; 84484; 85025; 87086; 87635; 93005; 93970; 94640; 94664; 97161; 97165; 97530; 97535; 99285; J1940; J2060; J3475; J3490; J7611

== ENCOUNTER 2021-04-09 15:25 | Inpatient (IN) | payer MEDICARE, MEDICAID, SELFPAY ==
[2021-04-09] VITALS (10 sets, daily range): BP systolic 72–131; BP diastolic 53–102; PULSE 88–162; RESP 18–36; TEMP 36.5; O2SAT 84–98; BMI 28.7
--- NOTE | 2021-04-09 15:31 | XRR_ITS ---
PROCEDURE INFORMATION: Exam: XR Chest Exam date and time: 04/09/2021 3:31 PM Age: 75 years old Clinical indication: Shortness of breath; Additional info: Dyspnea/cough TECHNIQUE: Imaging protocol: XR of the chest. Views: 1 view. COMPARISON: CR (CHEST, ) 04/02/2021 7:25 AM FINDINGS: Lungs: Mild emphysematous changes suspected. Right lower lobe 2.2 mm pulmonary nodule again seen which appears suspicious for malignancy, previous CT scan recommended PET-CT or tissue sampling. Pleural spaces: Unremarkable. No pleural effusion. No pneumothorax. Heart/Mediastinum: Cardiomegaly. Bones/joints: Unremarkable. XR/XR chest 1V portable [id number] IMPRESSION: 1. Cardiomegaly. 2. Mild emphysematous changes suspected. 3. Right lower lobe 2.2 mm pulmonary nodule again seen which appears suspicious for malignancy, previous CT scan recommended PET-CT or tissue sampling.
--- NOTE | 2021-04-09 15:31 | ECG_ITS ---
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 Measurements Intervals [place] Rate: 77 P: SD: QRS: 67 QRSD: 110 T: 90 QT: 346 QTc: 394 Interpretive Statements ATRIAL FIBRILLATION MINIMAL ST DEPRESSION [0.025+ mV ST DEPRESSION] ABNORMAL RHYTHM ECG Compared to ECG 03/30/2021 00:01:35 ST (T wave) deviation now present Atrial flutter no longer present Myocardial infarct finding no longer present Electronically Signed On 04-10-2021 8:11:16 MARINE GEOLOGIST by Maggie Squires M.D. [email or web address]
--- NOTE | 2021-04-09 15:43 | W.ED.SOB ---
Documented by User: Amol Burns DO 04/11/21 05:41 HPI - SOB/Dyspnea General: Chief Complaint: ER Hold Stated Complaint: SOB Time Seen by Provider: 04/09/21 15:29 History of Present Illness: HPI Narrative: 75-year-old male presents emergency room via EMS complaining of severe shortness of breath for the last several hours. Patient has labored breathing is on 6 L by nasal cannula he continually pulls and nasal cannula out of his nose and puts it in his mouth. In his foot and what he describes as hernia and pain when he states that is chronic he has some moderate edema of his lower extremities he denies any chest pain. Moderately productive cough of baseline sputum with no significant recent change. He denies any chest tightness pressure or radiation of discomfort. MD elicited complaint: shortness of breath and cough Pertinent past history: COPD and congestive heart failure Context: recent illness Timing: constant Severity: severe Exacerbating factors: exertion, movement and coughing Relieving factors: nothing Known history of: COPD and congestive heart failure Associated symptoms: Reports chest congestion, chest pain and orthopnea; Deny abdominal pain, cough, diaphoresis, dizziness, extremity pain, fever(s), hemoptysis, lightheadedness, myalgias, nausea, palpitations, paresthesias, polydipsia, polyuria, rash, sense of impending doom, syncope or vomiting Treatment prior to arrival: oxygen and bronchodilator Review of Systems Const: Denies: fever(s) or diaphoresis ENMT: Denies: throat pain, ear or mastoid pain, nasal discharge or nasal congestion Card: Reports: chest pain and orthopnea; Denies: palpitations, lightheadedness or syncope Resp: Reports: chest congestion; Denies: hemoptysis GI: Denies: abdominal pain, nausea or vomiting : Denies: flank pain, dysuria, urinary frequency or urinary urgency Musc: Denies: extremity pain Skin/Breast: Denies: rash or pruritus Neuro: Denies: dizziness Endo: Denies: polyuria or polydipsia PFS ED PFSH: Medical History Abdominal ascites Abnormal liver enzymes Aortic stenosis 03/18/21 mild to moderate, KERRY 1.1 cm2, mean gradient 12.7 Atrial fibrillation Back pain Chronic anticoagulation eliquis, for afib COPD (chronic obstructive pulmonary disease) Coronary artery disease GERD (gastroesophageal reflux disease) Heart failure with preserved ejection fraction, borderline, class III EF 55% 03/18/21 Hepatitis C Hypertension Incisional hernia Insomnia Lung nodule Non-compliant behavior IRVIN (obstructive sleep apnea) Periumbilical hernia Right inguinal hernia Ventral hernia left sided, large Surgical History H/O exploratory laparotomy H/O laminectomy History of cardiac catheterization (03/19/21) ostial 40-50% eccentric lesion with IFR 0.93 (not significant), distal and mid PDA lesions treated with angioplasty with reduction in lesions from 80-90% to 40-50%, no stent placed History of carpal tunnel surgery History of cholecystectomy S/P laparoscopic appendectomy Family History Father Cancer Other Hypertension Social History Smoking and tobacco status: smoker, details unknown e-cigarettes E-Cigarette Details: e-cigarette Second hand smoke exposure: Yes Alcohol intake: former Year of sobriety/quit date alcohol: 6 years ago Former alcohol use details: Heavy alcohol use Lives independently: No Household members: family and children Housing: Skilled Nursing Marital status: Number of children: 3 service: No Current occupational status: retired Current gender identity: Male Physical Exam Const: GENERAL APPEARANCE: cooperative and comfortable ORIENTATION/CONSCIOUSNESS: Yes awake, Yes oriented to person, Yes oriented to place and Yes oriented to time HENMT: COMMON NORMALS: normocephalic, atraumatic and hearing grossly normal bilaterally HEAD & SCALP: normocephalic and atraumatic Neck/C-Spine: COMMON NORMALS: no JVD Resp: AUSCULTATION: rhonchi, wheezes and diminished lung sounds Cardio: COMMON NORMALS: no JVD, regular rate, regular rhythm and No murmurs present (Cardio) RATE: regular rate RHYTHM: regular rhythm GI: COMMON NORMALS: Soft to palpation and No hepatosplenomegaly present AUSCULTATION: Yes normoactive bowel sounds PALPATION: Yes Soft to palpation, No Tenderness to palpation present (GI), No Guarding due to palpation present (GI) and Yes No hepatosplenomegaly present Extremity: COMMON NORMALS: normal to inspection, capillary refill normal, no clubbing, cyanosis or edema, no calf tenderness and no pedal edema Neuro: SENSORIUM/ORIENTATION: Yes oriented to person, Yes oriented to place and Yes oriented to time Skin: COMMON NORMALS: no rashes or lesions noted GENERAL SKIN EXAM: no rashes or lesions noted Course Vital Signs: Vital signs: Vital Signs Temperature 97.9 F 04/10/21 22:46 Pulse Rate 99 04/11/21 02:00 Respiratory Rate 20 H 04/11/21 02:00 Blood Pressure 119/68 04/11/21 02:00 Pulse Oximetry 97 04/11/21 02:00 MDM - SOB/Dyspnea MDM Narrative: Medical decision making narrative: Patient being screened for COVID. Care turned over to Dr. Elmore at change of shift. See his note final diagnosis and disposition. Lab Data: Labs: Lab Results 04/09/21 04/09/21 04/09/21 16:16 16:20 16:20 WBC 7.9 10^3/uL 10^3/ uL (4.0-10.0) RBC 3.32 10^6/uL L 10 ^6/uL (4.1-5.3) Hgb 11.1 g/dL L g/dL (11.7-16.6) Hct 35.0 % L % (42.0-52.0) MCV 105.4 fl H fl (80-94) MCH 33.4 pg pg (28.0-34.0) MCHC 31.7 g/dL g/dL (30.0-36.0) RDW 14.5 % % (12.1-15.1) Plt Count 190 10^3/cmm 10^3 /cmm (130-400) MPV 11.1 fL H fL (7.4-10.4) Neut % (Auto) 61.3 % % Lymph % (Auto) 13.6 % % King % (Auto) 21.4 % % Eos % (Auto) 2.4 % % Baso % (Auto) 0.9 % % Neut # (Auto) 4.81 10^3/uL 10^3 /uL (1.8-7.7) Lymph # (Auto) 1.1 10^3/uL 10^3/ uL (0.8-4.8) King # (Auto) 1.7 10^3/uL H 10^ 3/uL (0.2-0.9) Eos # (Auto) 0.2 10^3/uL 10^3/ uL (0.0-0.8) Baso # (Auto) 0.1 10^3/uL 10^3/ uL (0.0-0.1) Nucleated RBC % (a uto) 0 % % Nucleated RBCs # 0.0 /100WBC /100W BC D-Dimer Specimen Type Arterial Sample Site Brachial, right ABG pH 7.46 H (7.35-7.45) ABG pCO2 42.6 mmHg mmHg (35-45) ABG pO2 116.0 mmHg H mmHg (80.0-100.0) ABG HCO3 30.0 mmol/L H mmo l/L (22-26) ABG O2 Saturation 99.2 ABG Base Excess 5.5 mmol/L H mmol /L (-2.0-2.0) Yannick Test N/a A-a O2 Gradient 15.0 mmHg H mmHg (5-10) Hematocrit 33.8 % L % (42-52) Hgb O2 Saturation 97.3 % % (95-100) Carboxyhemoglobin 1.0 %THgb %THgb (0.4-20.1) Methemoglobin 0.9 % % (0.4-1.5) Total Hemoglobin 11.0 g/dL L g/dL (14-18) Sodium 131.0 mmol/L mmol /L 130 mmol/L L mmol /L (131-143) (136-145) Potassium 4.9 mmol/L mmol/L 4.7 mmol/L mmol/L (3.5-5.0) (3.5-5.1) Glucose 117.0 mg/dL H mg/ dL 101 mg/dL mg/dL (70-115) (65-115) Ionized Calcium 1.2 mmol/L mmol/L (1.1-1.4) O2 Delivery Device Nc O2 Liters/Min 5.0 % % FiO2 40.0 % % Human Resources Intern ID Amh Chloride 92 mmol/L L mmol/ L (98-107) Carbon Dioxide 26 mmol/L mmol/L (22-29) Anion Gap 13.7 (5-19) BUN 31 mg/dL H mg/dL (8-23) Creatinine 0.9 mg/dL mg/dL (0.7-1.2) GFR Calculation Not Reportable Calculated Osmolal ity 277 mOsm/kg L mOs m/kg (285-295) Calcium 8.6 mg/dL mg/dL (8.5-10.5) Total Bilirubin 0.5 mg/dL mg/dL (0.15-1.2) AST 109 U/L H U/L (0-40) ALT 62 U/L H U/L (0-41) Alkaline Phosphata se 169 IU/L H IU/L (40-130) Creatine Kinase 60 U/L U/L (39-308) Troponin T Baselin e Troponin T 120 Min [place] Troponin T NT-Pro-B Natriuret Pep 1428 pg/mL H pg/m L (0-125) Total Protein 8.3 g/dL g/dL (6.6-8.7) Albumin 2.9 g/dL L g/dL (3.5-5.2) Globulin 5.4 g/dL H g/dL (1.3-4.6) Urine Color Urine Appearance Urine pH Ur Specific Gravit y Urine Protein Urine Glucose (UA) Urine Ketones Urine Blood Urine Nitrate Urine Bilirubin Urine Urobilinogen Ur Leukocyte Autumn ase Coronavirus 229E ( PCR) SARS-CoV-2 (PCR) 04/09/21 04/09/21 04/09/21 16:20 16:20 16:35 WBC RBC Hgb Hct MCV MCH MCHC RDW Plt Count MPV Neut % (Auto) Lymph % (Auto) King % (Auto) Eos % (Auto) Baso % (Auto) Neut # (Auto) Lymph # (Auto) King # (Auto) Eos # (Auto) Baso # (Auto) Nucleated RBC % (a uto) Nucleated RBCs # D-Dimer Specimen Type Sample Site ABG pH ABG pCO2 ABG pO2 ABG HCO3 ABG O2 Saturation ABG Base Excess Yannick Test A-a O2 Gradient Hematocrit Hgb O2 Saturation Carboxyhemoglobin Methemoglobin Total Hemoglobin Sodium Potassium Glucose Ionized Calcium O2 Delivery Device O2 Liters/Min FiO2 Human Resources Intern ID Chloride Carbon Dioxide Anion Gap BUN Creatinine GFR Calculation Calculated Osmolal ity Calcium Total Bilirubin AST ALT Alkaline Phosphata se Creatine Kinase Troponin T Baselin e 28 ng/L H ng/L (0-15) Troponin T 120 Min [place] Troponin T NT-Pro-B Natriuret Pep Total Protein Albumin Globulin Urine Color Yellow (Yellow) Urine Appearance Clear (CLEAR) Urine pH 7 (5-7) Ur Specific Gravit y 1.015 (1.005-1.030) Urine Protein Neg (Negative) Urine Glucose (UA) Norm (Normal) Urine Ketones Negative (Negative) Urine Blood Neg (Negative) Urine Nitrate Negative (Negative) Urine Bilirubin Neg (Negative) Urine Urobilinogen Norm mg/dL mg/dL (Negative) Ur Leukocyte Autumn ase Negative (Negative) Coronavirus 229E ( PCR) Not detected (NOT DETECT) SARS-CoV-2 (PCR) Detected A (NOT DETECT) 04/09/21 04/09/21 04/09/21 18:15 19:30 20:21 WBC RBC Hgb Hct MCV MCH MCHC RDW Plt Count MPV Neut % (Auto) Lymph % (Auto) King % (Auto) Eos % (Auto) Baso % (Auto) Neut # (Auto) Lymph # (Auto) King # (Auto) Eos # (Auto) Baso # (Auto) Nucleated RBC % (a uto) Nucleated RBCs # D-Dimer 1.85 ug/mIFEU H u g/mIFEU (0-0.59) Specimen Type Sample Site ABG pH ABG pCO2 ABG pO2 ABG HCO3 ABG O2 Saturation ABG Base Excess Yannick Test A-a O2 Gradient Hematocrit Hgb O2 Saturation Carboxyhemoglobin Methemoglobin Total Hemoglobin Sodium Potassium Glucose Ionized Calcium O2 Delivery Device O2 Liters/Min FiO2 Human Resources Intern ID Chloride Carbon Dioxide Anion Gap BUN Creatinine GFR Calculation Calculated Osmolal ity Calcium Total Bilirubin AST ALT Alkaline Phosphata se Creatine Kinase Troponin T Baselin e Troponin T 120 Min [place] Cancelled 26.51 ng/L H ng/L (0-15) Delta Troponin T Cancelled -1.49 ABS# L ABS# (0-10) NT-Pro-B Natriuret Pep Total Protein Albumin Globulin Urine Color Urine Appearance Urine pH Ur Specific Gravit y Urine Protein Urine Glucose (UA) Urine Ketones Urine Blood Urine Nitrate Urine Bilirubin Urine Urobilinogen Ur Leukocyte Autumn ase Coronavirus 229E ( PCR) SARS-CoV-2 (PCR) Discharge Plan Discharge Admit Provider: Juliana Talbert Clinical Impression: COVID-19, Atrial fibrillation, Acute hypoxemic respiratory failure Condition: Stable Coding Level of Care Code ED Freight Claim Investigator for Chg Fwd Exam Comprehensive Documented by User: Pedrito Elmore DO 04/09/21 23:09 HPI - SOB/Dyspnea General: Chief Complaint: ER Hold Stated Complaint: SOB Time Seen by Provider: 04/09/21 15:29 PFSH ED PFSH: Medical History Abdominal ascites Abnormal liver enzymes Aortic stenosis 03/18/21 mild to moderate, KERRY 1.1 cm2, mean gradient 12.7 Atrial fibrillation Back pain Chronic anticoagulation eliquis, for afib COPD (chronic obstructive pulmonary disease) Coronary artery disease GERD (gastroesophageal reflux disease) Heart failure with preserved ejection fraction, borderline, class III EF 55% 03/18/21 Hepatitis C Hypertension Incisional hernia Insomnia Lung nodule Non-compliant behavior IRVIN (obstructive sleep apnea) Periumbilical hernia Right inguinal hernia Ventral hernia left sided, large Surgical History H/O exploratory laparotomy H/O laminectomy History of cardiac catheterization (03/19/21) ostial 40-50% eccentric lesion with IFR 0.93 (not significant), distal and mid PDA lesions treated with angioplasty with reduction in lesions from 80-90% to 40-50%, no stent placed History of carpal tunnel surgery History of cholecystectomy S/P laparoscopic appendectomy Family History Father Cancer Other Hypertension Social History Smoking and tobacco status: smoker, details unknown e-cigarettes E-Cigarette Details: e-cigarette Second hand smoke exposure: Yes Alcohol intake: former Year of sobriety/quit date alcohol: 6 years ago Former alcohol use details: Heavy alcohol use Lives independently: No Household members: family and children Housing: Skilled Nursing Marital status: Number of children: 3 service: No Current occupational status: retired Current gender identity: Male Course Consultations: Consultation #1: adelaide Vital Signs: Vital signs: Vital Signs Temperature 97.9 F 04/10/21 22:46 Pulse Rate 99 04/11/21 02:00 Respiratory Rate 20 H 04/11/21 02:00 Blood Pressure 119/68 04/11/21 02:00 Pulse Oximetry 97 04/11/21 02:00 MDM - SOB/Dyspnea MDM Narrative: Medical decision making narrative: 75-year-old gentleman presents from a [facility] with shortness of breath and some mental status change. He was checked out to me by the previous physician at shift change. His heart rate is elevated, from 100-1 30. Periods are regular/atrial fibrillation. He has a history of this. He is on Eliquis. He had a recent hospitalization for heart failure exacerbation, currently he is on 5 L which is above his baseline of 3 L and still complaining of shortness of breath. His oxygen saturations are improved. His chest x-ray is negative. He has mild elevation in his BNP. He is anticoagulated. D-dimer is pending. His COVID-19 PCR is positive. He has been given Lasix. He remains tachycardic. He has been hard to handle nursing paulino, as he keeps pulling off his oxygen and getting up. His lower extremities are now bit mottled. He will not be appropriate for the floor at this point. He will have to go to the ICU or CSU, of which no beds are available. He will be held in the ER. Lab Data: Labs: Lab Results 04/09/21 04/09/21 04/09/21 16:16 16:20 16:20 WBC 7.9 10^3/uL 10^3/ uL (4.0-10.0) RBC 3.32 10^6/uL L 10 ^6/uL (4.1-5.3) Hgb 11.1 g/dL L g/dL (11.7-16.6) Hct 35.0 % L % (42.0-52.0) MCV 105.4 fl H fl (80-94) MCH 33.4 pg pg (28.0-34.0) MCHC 31.7 g/dL g/dL (30.0-36.0) RDW 14.5 % % (12.1-15.1) Plt Count 190 10^3/cmm 10^3 /cmm (130-400) MPV 11.1 fL H fL (7.4-10.4) Neut % (Auto) 61.3 % % Lymph % (Auto) 13.6 % % King % (Auto) 21.4 % % Eos % (Auto) 2.4 % % Baso % (Auto) 0.9 % % Neut # (Auto) 4.81 10^3/uL 10^3 /uL (1.8-7.7) Lymph # (Auto) 1.1 10^3/uL 10^3/ uL (0.8-4.8) King # (Auto) 1.7 10^3/uL H 10^ 3/uL (0.2-0.9) Eos # (Auto) 0.2 10^3/uL 10^3/ uL (0.0-0.8) Baso # (Auto) 0.1 10^3/uL 10^3/ uL (0.0-0.1) Nucleated RBC % (a uto) 0 % % Nucleated RBCs # 0.0 /100WBC /100W BC D-Dimer Specimen Type Arterial Sample Site Brachial, right ABG pH 7.46 H (7.35-7.45) ABG pCO2 42.6 mmHg mmHg (35-45) ABG pO2 116.0 mmHg H mmHg (80.0-100.0) ABG HCO3 30.0 mmol/L H mmo l/L (22-26) ABG O2 Saturation 99.2 ABG Base Excess 5.5 mmol/L H mmol /L (-2.0-2.0) Yannick Test N/a A-a O2 Gradient 15.0 mmHg H mmHg (5-10) Hematocrit 33.8 % L % (42-52) Hgb O2 Saturation 97.3 % % (95-100) Carboxyhemoglobin 1.0 %THgb %THgb (0.4-20.1) Methemoglobin 0.9 % % (0.4-1.5) Total Hemoglobin 11.0 g/dL L g/dL (14-18) Sodium 131.0 mmol/L mmol /L 130 mmol/L L mmol /L (131-143) (136-145) Potassium 4.9 mmol/L mmol/L 4.7 mmol/L mmol/L (3.5-5.0) (3.5-5.1) Glucose 117.0 mg/dL H mg/ dL 101 mg/dL mg/dL (70-115) (65-115) Ionized Calcium 1.2 mmol/L mmol/L (1.1-1.4) O2 Delivery Device Nc O2 Liters/Min 5.0 % % FiO2 40.0 % % Human Resources Intern ID Amh Chloride 92 mmol/L L mmol/ L (98-107) Carbon Dioxide 26 mmol/L mmol/L (22-29) Anion Gap 13.7 (5-19) BUN 31 mg/dL H mg/dL (8-23) Creatinine 0.9 mg/dL mg/dL (0.7-1.2) GFR Calculation Not Reportable Calculated Osmolal ity 277 mOsm/kg L mOs m/kg (285-295) Calcium 8.6 mg/dL mg/dL (8.5-10.5) Total Bilirubin 0.5 mg/dL mg/dL (0.15-1.2) AST 109 U/L H U/L (0-40) ALT 62 U/L H U/L (0-41) Alkaline Phosphata se 169 IU/L H IU/L (40-130) Creatine Kinase 60 U/L U/L (39-308) Troponin T Baselin e Troponin T 120 Min [place] Troponin T NT-Pro-B Natriuret Pep 1428 pg/mL H pg/m L (0-125) Total Protein 8.3 g/dL g/dL (6.6-8.7) Albumin 2.9 g/dL L g/dL (3.5-5.2) Globulin 5.4 g/dL H g/dL (1.3-4.6) Urine Color Urine Appearance Urine pH Ur Specific Gravit y Urine Protein Urine Glucose (UA) Urine Ketones Urine Blood Urine Nitrate Urine Bilirubin Urine Urobilinogen Ur Leukocyte Autumn ase Coronavirus 229E ( PCR) SARS-CoV-2 (PCR) 04/09/21 04/09/21 04/09/21 16:20 16:20 16:35 WBC RBC Hgb Hct MCV MCH MCHC RDW Plt Count MPV Neut % (Auto) Lymph % (Auto) King % (Auto) Eos % (Auto) Baso % (Auto) Neut # (Auto) Lymph # (Auto) King # (Auto) Eos # (Auto) Baso # (Auto) Nucleated RBC % (a uto) Nucleated RBCs # D-Dimer Specimen Type Sample Site ABG pH ABG pCO2 ABG pO2 ABG HCO3 ABG O2 Saturation ABG Base Excess Yannick Test A-a O2 Gradient Hematocrit Hgb O2 Saturation Carboxyhemoglobin Methemoglobin Total Hemoglobin Sodium Potassium Glucose Ionized Calcium O2 Delivery Device O2 Liters/Min FiO2 Human Resources Intern ID Chloride Carbon Dioxide Anion Gap BUN Creatinine GFR Calculation Calculated Osmolal ity Calcium Total Bilirubin AST ALT Alkaline Phosphata se Creatine Kinase Troponin T Baselin e 28 ng/L H ng/L (0-15) Troponin T 120 Min [place] Troponin T NT-Pro-B Natriuret Pep Total Protein Albumin Globulin Urine Color Yellow (Yellow) Urine Appearance Clear (CLEAR) Urine pH 7 (5-7) Ur Specific Gravit y 1.015 (1.005-1.030) Urine Protein Neg (Negative) Urine Glucose (UA) Norm (Normal) Urine Ketones Negative (Negative) Urine Blood Neg (Negative) Urine Nitrate Negative (Negative) Urine Bilirubin Neg (Negative) Urine Urobilinogen Norm mg/dL mg/dL (Negative) Ur Leukocyte Autumn ase Negative (Negative) Coronavirus 229E ( PCR) Not detected (NOT DETECT) SARS-CoV-2 (PCR) Detected A (NOT DETECT) 04/09/21 04/09/21 04/09/21 18:15 19:30 20:21 WBC RBC Hgb Hct MCV MCH MCHC RDW Plt Count MPV Neut % (Auto) Lymph % (Auto) King % (Auto) Eos % (Auto) Baso % (Auto) Neut # (Auto) Lymph # (Auto) King # (Auto) Eos # (Auto) Baso # (Auto) Nucleated RBC % (a uto) Nucleated RBCs # D-Dimer 1.85 ug/mIFEU H u g/mIFEU (0-0.59) Specimen Type Sample Site ABG pH ABG pCO2 ABG pO2 ABG HCO3 ABG O2 Saturation ABG Base Excess Yannick Test A-a O2 Gradient Hematocrit Hgb O2 Saturation Carboxyhemoglobin Methemoglobin Total Hemoglobin Sodium Potassium Glucose Ionized Calcium O2 Delivery Device O2 Liters/Min FiO2 Human Resources Intern ID Chloride Carbon Dioxide Anion Gap BUN Creatinine GFR Calculation Calculated Osmolal ity Calcium Total Bilirubin AST ALT Alkaline Phosphata se Creatine Kinase Troponin T Baselin e Troponin T 120 Min [place] Cancelled 26.51 ng/L H ng/L (0-15) Delta Troponin T Cancelled -1.49 ABS# L ABS# (0-10) NT-Pro-B Natriuret Pep Total Protein Albumin Globulin Urine Color Urine Appearance Urine pH Ur Specific Gravit y Urine Protein Urine Glucose (UA) Urine Ketones Urine Blood Urine Nitrate Urine Bilirubin Urine Urobilinogen Ur Leukocyte Autumn ase Coronavirus 229E ( PCR) SARS-CoV-2 (PCR) Discharge Plan Discharge Admit Provider: Juliana Talbert Clinical Impression: COVID-19, Atrial fibrillation, Acute hypoxemic respiratory failure Condition: Stable Coding Level of Care Code ED Freight Claim Investigator for Chg Fwd Exam Comprehensive
[2021-04-09 16:27] LABS: ABG PCO2 42.6 mmHg (35-45); ABG PH Result 7.46 (7.35-7.45); Arterial Blood Gas Hematocrit 33.8 % (42-52); Base Excess ABG 5.5 mmol/L (-2.0-2.0); Blood Gas Operator Identificat AMH; Blood Gas Sample Site Brachial, right; Blood Gas Sample Type Arterial; HGB O2 Sat 97.3 % (95-100); Ionized Calcium Level - ABG 1.2 mmol/L (1.1-1.4); Methemoglobin 0.9 % (0.4-1.5); Oxygen Device NC; Oxygen Saturation ABG 99.2; Potassium Level - ABG 4.9 mmol/L (3.5-5.0)
[2021-04-09 16:32] LABS: Add Urine Microscopic? NO; Charge for UA Resulting for Rev
[2021-04-09 16:37] LABS: Basophils # 0.1 10^3/uL (0.0-0.1); Basophils % 0.9 %; Eosinophils # 0.2 10^3/uL (0.0-0.8); Eosinophils % 2.4 %; Hemoglobin 11.1 g/dL (11.7-16.6); Lymphocytes # 1.1 10^3/uL (0.8-4.8); Lymphocytes % 13.6 %; Mean Corpuscular HGB Conc 31.7 g/dL (30.0-36.0); Mean Corpuscular Hemoglobin 33.4 pg (28.0-34.0); Mean Corpuscular Volume 105.4 fl (80-94); Mean Platelet Volume 11.1 fL (7.4-10.4); Monocytes # 1.7 10^3/uL (0.2-0.9); Monocytes % 21.4 %; Neutrophils # 4.81 10^3/uL (1.8-7.7); Neutrophils % 61.3 %; Nucleated Red Blood Cells % 0 %; Platelet Count 190 10^3/cmm (130-400); Red Blood Count 3.32 10^6/uL (4.1-5.3); Red Cell Distribution Width 14.5 % (12.1-15.1); White Blood Count 7.9 10^3/uL (4.0-10.0)
[2021-04-09 16:43] LABS: Bilirubin Urine Neg (Negative); Blood Urine Neg (Negative); Glucose Urine UA Norm (Normal); Ketones Urine Negative (Negative); Leukocyte Esterase Urine Negative (Negative); Nitrate Urine Negative (Negative); Protein Urine Neg (Negative); Specific Gravity, Urine 1.015 (1.005-1.030); Urine Appearance Clear (CLEAR); Urine Color Yellow (Yellow); Urobilinogen Urine Norm (Negative); pH Urine 7 (5-7)
[2021-04-09 17:04] LABS: Troponin(5th) Baseline 28 ng/L (0-15)
[2021-04-09 17:19] LABS: Alanine Aminotransferase 62 U/L (0-41); Albumin Level 2.9 g/dL (3.5-5.2); Alkaline Phosphatase 169 IU/L (40-130); Anion Gap 13.7 (5-19); Aspartate Amino Transferase 109 U/L (0-40); Blood Urea Nitrogen 31 mg/dL (8-23); Calcium 8.6 mg/dL (8.5-10.5); Carbon Dioxide 26 mmol/L (22-29); Creatine Phosphokinase 60 U/L (39-308); Globulin 5.4 g/dL (1.3-4.6); Glucose 101 mg/dL (65-115); NT Pro B Type Natriuretic Pept 1428 pg/mL (0-125); Potassium 4.7 mmol/L (3.5-5.1); Total Bilirubin 0.5 mg/dL (0.15-1.2); Total Protein 8.3 g/dL (6.6-8.7)
[2021-04-09 17:44] LABS: Chloride 92 mmol/L (98-107); Osmolality Calculated 277 mOsm/kg (285-295)
[2021-04-09 17:45] LABS: Sodium 130 mmol/L (136-145)
[2021-04-09] MEDS: FUROsemide 10 mg/mL SDV 10mL 60 MG IVP (18:23)
[2021-04-09] MEDS: haloperidol inj 5 mg/mL INJ 1 mL 2 MG IVP (18:27)
[2021-04-09 18:30] LABS: Adenovirus Not Detected (NOT DETECT); Chlamydia Pneumoniae Not Detected (NOT DETECT); Coronavirus 229E,HKU1,NL63,OC4 Not Detected (NOT DETECT); Human Metapneumovirus Not Detected (NOT DETECT); Human Rhinovirus/Enterovirus Not Detected (NOT DETECT); Influenza A Not Detected (NOT DETECT); Influenza A H1 Not Detected (NOT DETECT); Influenza A H1-2009 Not Detected (NOT DETECT); Influenza A H3 Not Detected (NOT DETECT); Influenza B Not Detected (NOT DETECT); Mycoplasma Pneumoniae Not Detected (NOT DETECT); Parainfluenza Virus Type 1 Not Detected (NOT DETECT); Parainfluenza Virus Type 2 Not Detected (NOT DETECT); Parainfluenza Virus Type 3 Not Detected (NOT DETECT); Parainfluenza Virus Type 4 Not Detected (NOT DETECT); Respiratory Syncytial Virus A Not Detected (NOT DETECT); Respiratory Syncytial Virus B Not Detected (NOT DETECT); SARS-COV-2 Detected (NOT DETECT)
[2021-04-09 19:59] LABS: Troponin 5 2HR 26.51 ng/L (0-15)
[2021-04-09 20:00] LABS: Troponin 5 2HR Delta -1.49 ABS# (0-10)
[2021-04-09] MEDS: morphine 4 mg/mL SDV 1 mL 2 MG IVP (20:20)
[2021-04-09] MEDS: LORazepam 2 mg/mL INJ 1 mL 1 MG IVP (20:21)
--- NOTE | 2021-04-09 20:25 | P.HP_ITS ---
Providers/Chief Complaint Admitting Physician: Juliana Talbert Chief Complaint: SOB History of Present Illness Roebrt Torres is a 75 year old male recently hospitalized initially in mid March for angina that ultimately resulted in angioplasty x2 vessels on March 19. He was discharged on March 26 and came back on March 29 with acute CHF. He was discharged on April 04 and went to [place]. In the course of the last month he has been treated for possible UTI although cultures were negative, lower extremity cellulitis, atrial fibrillation with rapid ventricular response in addition to the non-ST elevation MD leading to cardiac intervention. His Lasix dose was changed from I believe 40 mg a day to 40 mg twice daily at discharge the other day. His lisinopril, that was held during the hospital stay was resumed. He was continued on usual Eliquis, Plavix, metoprolol and diltiazem. While I do not have the actual MAR utilized at the [facility] I confirmed all these medications are still on his lis t. I am not able to get much information directly from him due to the degree of respiratory distress she is currently experiencing. Records indicate he is normally on 2 to 3 L of oxygen by nasal cannula. At presentation he was requiring 6 L and breathing 30-40 times a minute. ABG showed 7.4 6/42/116. Based on patient's history he was given 60 mg of IV Lasix. He had had breathing treatment in route. In addition to respiratory abnormalities was noted to be in atrial fibrillation with rapid ventricular response. He received some IV metoprolol, morphine and Ativan without any clinical improvement. He was initially able to provide some history and communicate more from information obtained. Work-up revealed chest x-ray without significant changes or acute findings, a D-dimer that was similarly elevated to those back in March and a COVID positive PCR result. No report of any fever, complaining primarily of difficulty breathing but not so much chest pain this time. He has had cough, runny nose. Does not sound like he has had a sore throat. No syncope reported. He was given some dexamethasone and request was made for admission. Review of Systems General: Reports: ROS unobtainable due to medical condition (Beyond what is noted in HPI ) Medications/Allergies Home Medications Medication Instructions Recorded Confirmed Last Taken Type Wheel chair with oxygen clamp #1 ea 07/01/20 04/09/21 Unknown Rx folic acid 1 mg tablet 1 mg PO DAILY 30 Days #30 tab 07/01/20 04/09/21 Unknown Rx Eliquis 5 mg PO BID 03/17/21 04/09/21 Unknown History albuterol sulfate [ProAir HFA] 2 inh INHALATION Q4H PRN 03/17/21 04/09/21 Unknown History fluticasone propion-salmeterol 1 inh INHALATION BID 03/17/21 04/09/21 Unknown History [Wixela Inhub] lisinopril 20 mg PO QAM 03/17/21 04/09/21 Unknown History clopidogrel 75 mg PO DAILY 30 Days #30 tab 03/24/21 04/09/21 Unknown Rx diltiazem HCl [DILT-XR] 180 mg PO DAILY 30 Days #30 cap 03/24/21 04/09/21 Unknown Rx metoprolol tartrate 25 mg PO Q12H #60 tab 03/24/21 04/09/21 Unknown Rx nitroglycerin 0.4 mg SUBLINGUAL Q5M PRN 30 Days 03/24/21 04/09/21 Unknown Rx #30 tab furosemide [Lasix] 40 mg PO BID #60 tab 04/04/21 04/09/21 Unknown Rx potassium chloride [Klor-Con] 20 meq PO DAILY #30 ea 04/04/21 04/09/21 Unknown Rx albuterol sulfate 2.5 mg INHALATION Q4H PRN 04/09/21 04/09/21 Unknown History bisacodyl 10 mg IN DAILY PRN 04/09/21 04/09/21 Unknown History lorazepam [Ativan] 0.25 mg PO TID PRN 04/09/21 04/09/21 Unknown History magnesium hydroxide [Milk of 30 ml PO DAILY PRN 04/09/21 04/09/21 Unknown History Magnesia] oxycodone 5 mg PO Q4H PRN 04/09/21 04/09/21 Unknown History sodium phosphates [Fleet Enema] 118 ml IN DAILY PRN 04/09/21 04/09/21 Unknown History tramadol 50 mg PO Q6H PRN 04/09/21 04/09/21 Unknown History Allergies Allergy/AdvReac Type Severity Reaction Status Date / Time methadone Allergy Intermediate unknnown Verified 08/26/19 12:56 PFSH Acute PFSH: Medical History (Updated 04/10/21 @ 03:15 by Juliana Talbert MD) Abdominal ascites Abnormal liver enzymes Aortic stenosis 03/18/21 mild to moderate, KERRY 1.1 cm2, mean gradient 12.7 Atrial fibrillation Back pain Chronic anticoagulation eliquis, for afib COPD (chronic obstructive pulmonary disease) Coronary artery disease GERD (gastroesophageal reflux disease) Heart failure with preserved ejection fraction, borderline, class III EF 55% 03/18/21 Hepatitis C Hypertension Incisional hernia Insomnia Lung nodule Non-compliant behavior IRVIN (obstructive sleep apnea) Periumbilical hernia Right inguinal hernia Ventral hernia left sided, large Surgical History (Updated 04/09/21 @ 20:40 by Juliana Talbert MD) H/O exploratory laparotomy H/O laminectomy History of cardiac catheterization (03/19/21) ostial 40-50% eccentric lesion with IFR 0.93 (not significant), distal and mid PDA lesions treated with angioplasty with reduction in lesions from 80- 90% to 40-50%, no stent placed History of carpal tunnel surgery History of cholecystectomy S/P laparoscopic appendectomy Family History Father Cancer Other Hypertension Social History (Updated 04/09/21 @ 20:41 by Juliana Talbert MD) Smoking and tobacco status: smoker, details unknown e-cigarettes E-Cigarette Details: e-cigarette Second hand smoke exposure: Yes Alcohol intake: former Year of sobriety/quit date alcohol: 6 years ago Former alcohol use details: Heavy alcohol use Lives independently: No Household members: family and children Housing: Skilled Nursing Marital status: Number of children: 3 service: No Current occupational status: retired Current gender identity: Male Vitals/I&O/Wt Last Vital Signs Temp 97.7 F 04/09/21 15:40 Pulse 110 H 04/09/21 18:39 Resp 18 04/09/21 20:20 BP 123/84 04/09/21 18:39 Pulse Ox 94 04/09/21 18:39 Weight last 48 hrs Weight 90.718 kg Physical Exam Narrative: EXAM NARRATIVE: Constitutional: Lethargic, will awaken, very ill-appearing sitting up leaning forward, tachypneic, legs are mottled up to the thigh HEENT: Normocephalic except for some mild bitemporal wasting, conjunctive are injected, oropharynx with dry mucous membranes, keeps nasal cannula in the mouth Neck: supple Respiratory: Inspiratory and expiratory wheezes throughout with scattered crackles, no rhonchi, able to talk in 1-2 word sentences primarily answering yes or no, supraclavicular and intercostal retractions noted Cardiovascular: Irregularly irregular tachycardic rhythm, hands and feet are cool to touch with 1+ radial pulses, very faint lower extremity pulses but they are palpable, will not lay back long enough to allow adequate evaluation of JVD though appears elevated Abdomen: Soft, large hernia on the left lower quadrant/periumbilical area, softens when you can get him to lean back, tender, not fully reducible but similar to descriptions in prior reports : Normal external genitalia Extremities: 4+ edema, extensive mottling as described, cyanosis of the feet, muscle wasting noted to the arms, also lower extremities but edema makes it difficult Skin: Chronic stasis changes to the lower extremities, hyperkeratotic nails Neuro: Moves all extremities but generally weak, face is grossly symmetric, the limited speech she is able to do from a respiratory standpoint is clear Data : 04/09/21 16:20 04/09/21 16:20 Other Labs: Radiology Impressions Chest X-Ray 04/09/21 15:31 IMPRESSION: 1. Cardiomegaly. 2. Mild emphysematous changes suspected. 3. Right lower lobe 2.2 mm pulmonary nodule again seen which appears suspicious for malignancy, previous CT scan recommended PET-CT or tissue sampling. Laboratory Results WBC 7.9 10^3/uL (4.0-10.0) 04/09/21 16:20 RBC 3.32 10^6/uL (4.1-5.3) L 04/09/21 16:20 Hgb 11.1 g/dL (11.7-16.6) L 04/09/21 16:20 Hct 35.0 % (42.0-52.0) L 04/09/21 16:20 MCV 105.4 fl (80-94) H 04/09/21 16:20 MCH 33.4 pg (28.0-34.0) 04/09/21 16:20 MCHC 31.7 g/dL (30.0-36.0) 04/09/21 16:20 RDW 14.5 % (12.1-15.1) 04/09/21 16:20 Plt Count 190 10^3/cmm (130-400) 04/09/21 16:20 MPV 11.1 fL (7.4-10.4) H 04/09/21 16:20 Neut % (Auto) 61.3 % 04/09/21 16:20 Lymph % (Auto) 13.6 % 04/09/21 16:20 [place] % (Auto) 21.4 % 04/09/21 16:20 Eos % (Auto) 2.4 % 04/09/21 16:20 Baso % (Auto) 0.9 % 04/09/21 16:20 Neut # (Auto) 4.81 10^3/uL (1.8-7.7) 04/09/21 16:20 Lymph # (Auto) 1.1 10^3/uL (0.8-4.8) 04/09/21 16:20 [place] # (Auto) 1.7 10^3/uL (0.2-0.9) H 04/09/21 16:20 Eos # (Auto) 0.2 10^3/uL (0.0-0.8) 04/09/21 16:20 Baso # (Auto) 0.1 10^3/uL (0.0-0.1) 04/09/21 16:20 Nucleated RBC % (auto) 0 % 04/09/21 16:20 Nucleated RBCs # 0.0 /100WBC 04/09/21 16:20 Specimen Type Arterial 04/09/21 16:16 Sample Site Brachial, right 04/09/21 16:16 ABG pH 7.46 (7.35-7.45) H 04/09/21 16:16 ABG pCO2 42.6 mmHg (35-45) 04/09/21 16:16 ABG pO2 116.0 mmHg (80.0-100.0) H 04/09/21 16:16 ABG HCO3 30.0 mmol/L (22-26) H 04/09/21 16:16 ABG O2 Saturation 99.2 04/09/21 16:16 ABG Base Excess 5.5 mmol/L (-2.0-2.0) H 04/09/21 16:16 Yannick Test N/a 04/09/21 16:16 A-a O2 Gradient 15.0 mmHg (5-10) H 04/09/21 16:16 Hematocrit 33.8 % (42-52) L 04/09/21 16:16 Hgb O2 Saturation 97.3 % (95-100) 04/09/21 16:16 Carboxyhemoglobin 1.0 %THgb (0.4-20.1) 04/09/21 16:16 Methemoglobin 0.9 % (0.4-1.5) 04/09/21 16:16 Total Hemoglobin 11.0 g/dL (14-18) L 04/09/21 16:16 Sodium 131.0 mmol/L (131-143) 04/09/21 16:16 Potassium 4.9 mmol/L (3.5-5.0) 04/09/21 16:16 Glucose 117.0 mg/dL (70-115) H 04/09/21 16:16 Ionized Calcium 1.2 mmol/L (1.1-1.4) 04/09/21 16:16 O2 Delivery Device Nc 04/09/21 16:16 O2 Liters/Min 5.0 % 04/09/21 16:16 FiO2 40.0 % 04/09/21 16:16 Toxicology Teacher ID [facility] 04/09/21 16:16 Sodium 130 mmol/L (136-145) L 04/09/21 16:20 Potassium 4.7 mmol/L (3.5-5.1) 04/09/21 16:20 Chloride 92 mmol/L (98-107) L 04/09/21 16:20 Carbon Dioxide 26 mmol/L (22-29) 04/09/21 16:20 Anion Gap 13.7 (5-19) 04/09/21 16:20 BUN 31 mg/dL (8-23) H 04/09/21 16:20 Creatinine 0.9 mg/dL (0.7-1.2) 04/09/21 16:20 GFR Calculation Not Reportable 04/09/21 16:20 Glucose 101 mg/dL (65-115) 04/09/21 16:20 Calculated Osmolality 277 mOsm/kg (285-295) L 04/09/21 16:20 Calcium 8.6 mg/dL (8.5-10.5) 04/09/21 16:20 Total Bilirubin 0.5 mg/dL (0.15-1.2) 04/09/21 16:20 AST 109 U/L (0-40) H 04/09/21 16:20 ALT 62 U/L (0-41) H 04/09/21 16:20 Alkaline Phosphatase 169 IU/L (40-130) H 04/09/21 16:20 Creatine Kinase 60 U/L (39-308) 04/09/21 16:20 Troponin T Baseline 28 ng/L (0-15) H 04/09/21 16:20 Troponin T 120 Minute 26.51 ng/L (0-15) H 04/09/21 19:30 Delta Troponin T -1.49 ABS# (0-10) L 04/09/21 19:30 NT-Pro-B Natriuret Pep 1428 pg/mL (0-125) H 04/09/21 16:20 Total Protein 8.3 g/dL (6.6-8.7) 04/09/21 16:20 Albumin 2.9 g/dL (3.5-5.2) L 04/09/21 16:20 Globulin 5.4 g/dL (1.3-4.6) H 04/09/21 16:20 Urine Color Yellow (Yellow) 04/09/21 16:20 Urine Appearance Clear (CLEAR) 04/09/21 16:20 Urine pH 7 (5-7) 04/09/21 16:20 Ur Specific [place] 1.015 (1.005-1.030) 04/09/21 16:20 Urine Protein Neg (Negative) 04/09/21 16:20 Urine Glucose (UA) Norm (Normal) 04/09/21 16:20 Urine Ketones Negative (Negative) 04/09/21 16:20 Urine Blood Neg (Negative) 04/09/21 16:20 Urine Nitrate Negative (Negative) 04/09/21 16:20 Urine Bilirubin Neg (Negative) 04/09/21 16:20 Urine Urobilinogen Norm mg/dL (Negative) 04/09/21 16:20 Ur Leukocyte Esterase Negative (Negative) 04/09/21 16:20 Coronavirus 229E (PCR) Not detected (NOT DETECT) 04/09/21 16:35 SARS-CoV-2 (PCR) Detected (NOT DETECT) A 04/09/21 16:35 A&P Assessment and plan (1) Acute respiratory distress: Likely multifactorial in a patient with comorbid medical conditions as noted below. The new abnormality compared to when he was recently here is that he is now testing positive for COVID-19. Chest x-ray does not show classical findings but does not rule this out as a symptomatic case currently. D-dimer is elevated similarly to what it was on March 22. Patient physically cannot lie flat for CT imaging currently and he is on chronic Eliquis. He has known heart failure with preserved ejection fraction and clinically looks volume overloaded. He also has aortic stenosis. Additionally he has COPD. I suspect it does not take him much to tip over to not doing well. Nor does it likely take much of a problem with one of his comorbid conditions to cause a problem with another. He is at extremely high risk of severe COVID so plan on treating him as such along with management for CHF/volume overload, COPD with exacerbation. Status: Acute (2) COVID-19: Status: Acute (3) Heart failure with preserved ejection fraction, borderline, class III: Acute on chronic, clinically appears to have more right-sided failure with extensive lower extremity edema exacerbated by him sitting on the side of the bed and dangling his legs constantly. Fraction 55% mid March. Status: Chronic (4) COPD (chronic obstructive pulmonary disease): Chronic with acute exacerbation within differential but difficult to separate from other concurrent diagnoses Status: Chronic Qualifiers: COPD type: COPD with acute exacerbation Qualified Code(s): J44.1 - Chronic obstructive pulmonary disease with (acute) exacerbation (5) Coronary artery disease: With angioplasty x2 vessels in March 19, 2021 Status: Chronic Qualifiers: Associated angina: without angina Coronary Disease-Associated Artery/Lesion type: [place] artery [place] vs. transplanted heart: [place] heart Qualified Code(s): I25.10 - Atherosclerotic heart disease of [place] coronary artery without angina pectoris (6) Atrial fibrillation: Chronic, currently with rapid ventricular response secondary to acute respiratory issues Status: Chronic Qualifiers: Atrial fibrillation type: paroxysmal Qualified Code(s): I48.0 - Paroxysmal atrial fibrillation (7) Aortic stenosis: Chronic, aortic valve area in March 2021 was 1.1 cm? with a mean gradient of 12.7 mmHg Status: Chronic Qualifiers: Cardiac valve disease etiology: nonrheumatic Qualified Code(s): I35.0 - Nonrheumatic aortic (valve) stenosis (8) Chronic anticoagulation: With Eliquis Status: Acute (9) Macrocytosis: Currently with anemia, lower than prior baseline but similar to recent values, no reported active bleeding, could be delutional from volume overload or related to iatrogenic blood losses as he has been in the hospital pretty much since mid March. Had low folate levels in the past. Status: Chronic (10) Hepatitis C: Details unknown but has associated chronic liver enzyme elevation, mild and ascites Status: Chronic Qualifiers: Hepatic coma status: without hepatic coma Viral hepatitis chronicity: chronic Qualified Code(s): B18.2 - Chronic viral hepatitis C (11) Hypertension: Chronic, blood pressures are currently lower end of normal range Status: Chronic Qualifiers: Hypertension type: primary hypertension Qualified Code(s): I10 - Essential (primary) hypertension (12) Incisional hernia: Chronic left side of the abdomen, when he lies back in bed it is soft though tender, upright not as soft, large enough that risk of incarceration is lower Status: Chronic Qualifiers: Obstruction and gangrene presence: without obstruction or gangrene Qualified Code(s): K43.2 - Incisional hernia without obstruction or gangrene (13) Right lower lobe pulmonary nodule: Chronic, increasing in size and associated with a right middle lobe nodule as well, concerning for malignancy Status: Chronic Additional A&P Information Mild elevation in transaminases from baseline either from hepatic congestion, viral illness or natural variation for him Hypoalbuminemia Treatment with antibiotics in the course of the last month for UTI (rocephin), lower extremity cellulitis (levaquin) Inpatient admission, ill enough currently that I am going to admit him to the ICU initially Initiate dexamethasone and remdesivir, discussed with the patient and he indicated agreement similar to how he indicated he is code status preferences and responses to yes/no questions Breathing treatments including inhaled steroids Oxygen therapy as needed to maintain saturations ABG given change in mental status Respiratory therapy to follow IV diuresis monitoring volume and renal status closely Has received 1 dose of IV metoprolol, will administer 1 dose of IV Cardizem Continue oral diltiazem and metoprolol Monitor for need to initiate alternative rate controlling agents as well as for response on blood pressure Continue Eliquis and Plavix Serial troponins without significant delta Give much lower dose of lisinopril currently D-dimer 1.85, similar to value within the last week Check coagulation studies, monitor H&H Recheck folate and B12 CK level 60 Procalcitonin pending CRP pending Ferritin pending Blood cultures to be collected Vitamin C, vitamin D, zinc Stool softeners Monitor ventral hernia closely for clinical change Check lactic acid level Depending on clinical course and recovery, outpatient follow-up for pulmonary nodules can be considered GO[facility] fernandez and [facility] Supportive care otherwise Charge back to a local skilled facility will have to be delayed until his 14 d ays past his positive test which is 04/09/2021. I do not see patient being able to safely go home but we will have to see how he does and if there arrangements will need to be made. Findings, concerns and plans were discussed with patient is much as he was able to pay attention. He did answer yes as previously noted to plan of care described Full code including intubation and CPR which he made very clear when asked Attestations Medical Necessity Statement*: Anticipate stay greater than 2 midnights in patient with multiple comorbidities, now presenting with increased shortness of breath and increased oxygen requirement who is covid, requiring oxygen and other care as noted above. At high risk of rapid clinical decline for reasons noted above. Coding Level of Care Code Acute Obstetric Assistant for Gretel Schwartz Diagnoses Acute respiratory distress R06.03 COVID-19 U07.1 Heart failure with preserved ejection fraction, borderline, class III I50.30 COPD (chronic obstructive pulmonary disease) J44.1 COPD type: COPD with acute exacerbation Coronary artery disease I25.10 Associated angina: without angina Coronary Disease-Associated Artery/Lesion type: [place] artery [place] vs. transplanted heart: [place] heart Atrial fibrillation I48.0 Atrial fibrillation type: paroxysmal Aortic stenosis I35.0 Cardiac valve disease etiology: nonrheumatic Chronic anticoagulation Z79.01 Macrocytosis D75.89 Hepatitis C B18.2 Hepatic coma status: without hepatic coma Viral hepatitis chronicity: chronic Hypertension I10 Hypertension type: primary hypertension Incisional hernia K43.2 Obstruction and gangrene presence: without obstruction or gangrene Right lower lobe pulmonary nodule R91.1
[2021-04-09 20:59] LABS: D Dimer 1.85 ug/mIFEU (0-0.59)
[2021-04-09] MEDS: dexamethasone 10 mg/mL INJ 6 MG IVP (21:25)
[2021-04-09 22:14] LABS: ABG PCO2 38.2 mmHg (35-45); ABG PH Result 7.48 (7.35-7.45); Alveolar-Arterial Oxygen Gradi 0.2 mmHg (5-10); Arterial Blood Gas Hematocrit 35.7 % (42-52); Base Excess ABG 4.4 mmol/L (-2.0-2.0); Blood Gas Sample Site Brachial, right; Blood Gas Sample Type Arterial; Carboxyhemoglobin 0.9 %THgb (0.4-20.1); HCO3 ABG 28.2 mmol/L (22-26); HGB O2 Sat 97.5 % (95-100); Ionized Calcium Level - ABG 1.2 mmol/L (1.1-1.4); Methemoglobin 0.3 % (0.4-1.5); Oxygen Device NC; Oxygen Saturation ABG 98.6; PO2 ABG 99.5 mmHg (80.0-100.0); Potassium Level - ABG 4.8 mmol/L (3.5-5.0); Total Hemoglobin 11.7 g/dL (14-18)
[2021-04-09 22:32] LABS: Troponin 5 6HR 27.03 ng/L (0-15); Troponin 5 6HR Delta -0.97 ng/L (0-12)
[2021-04-10] VITALS (24 sets, daily range): BP systolic 90–155; BP diastolic 51–104; PULSE 61–148; RESP 17–28; TEMP 36.4–37.2; O2SAT 90–100; BMI 33.4
[2021-04-10] MEDS: metoprolol tartrate 50 mg Tablet 25 MG PO ×2 (02:48→13:35)
[2021-04-10] MEDS: remdesivir 200 MG in sodium chloride 0.9% (100 ml) 100 ML 100 MG IV (02:54)
[2021-04-10] MEDS: lisinopril 20 mg Tablet 5 MG PO (06:20)
[2021-04-10] MEDS: LORazepam 0.5 mg Tablet 0.25 MG PO ×2 (06:20→13:34)
[2021-04-10] MEDS: FUROsemide 10 mg/mL SDV 4mL 40 MG IVP ×2 (06:20→18:19)
[2021-04-10] MEDS: budesonide 0.5 mg/2 mL Neb INHALATION ×2 (07:51→19:38)
[2021-04-10] MEDS: ipratropium-albuterol 3 mL Neb INHALATION ×3 (07:51→19:38)
[2021-04-10] MEDS: docusate sodium 100 mg Capsule PO ×2 (08:56→18:19)
[2021-04-10] MEDS: cholecalciferol (vitamin D3) 1,000 unit Tablet 2000 UNIT PO (08:56)
[2021-04-10] MEDS: clopidogrel 75 mg Tablet PO (08:56)
[2021-04-10] MEDS: zinc gluconate 50 mg Tablet PO (08:56)
[2021-04-10] MEDS: dilTIAZem ER (24HR) 180 mg Capsule PO (08:56)
[2021-04-10] MEDS: folic acid 1 mg Tablet PO (08:56)
[2021-04-10] MEDS: apixaban 5 mg Tablet PO ×2 (08:56→22:05)
[2021-04-10] MEDS: potassium chloride ER 20 mEq Tablet PO (08:56)
[2021-04-10] MEDS: pantoprazole DR 40 mg Tablet PO (08:56)
[2021-04-10] MEDS: ascorbic acid 500 mg Tablet 1000 MG PO ×2 (08:57→18:19)
[2021-04-10] MEDS: oxyCODONE 5 mg IR Tab/Cap PO (11:35)
--- NOTE | 2021-04-10 13:15 | PM.PN ---
Subjective Subjective: Interval history: Patient was seen and examined this morning continues to complain of generalized body pain, as well as shortness of breath. His other vitals and labs have been reviewed. Medications: Reviewed: Yes Medication Review Details: Generic Name Dose Route Start Last Admin Trade Name Freq PRN Reason Stop Dose Admin Albuterol/Ipratrop ium 3 ml 04/10/21 02:04 04/10/21 13:08 Ipratropium-Albu terol 3 Ml Neb INHALATION 3 ml Q4H.RESPIRATORY P RN Administration SHORTNESS OF MARSHA TH Apixaban 5 mg 04/10/21 09:00 04/10/21 08:56 Apixaban 5 Mg Ta blet PO 5 mg BID@0900,2100 DONN Administration Ascorbic Acid 1,000 mg 04/10/21 09:00 04/10/21 08:57 Ascorbic Acid 50 0 Mg Tablet PO 1,000 mg BID DONN Administration Budesonide 0.5 mg 04/10/21 08:00 04/10/21 07:51 Budesonide 0.5 M g/2 Ml Neb INHALATION 0.5 mg BID.RESPIRATORY S CH Administration Clopidogrel Bisulf ate 75 mg 04/10/21 09:00 04/10/21 08:56 Clopidogrel 75 M g Tablet PO 75 mg DAILY DONN Administration Diltiazem HCl 180 mg 04/10/21 09:00 04/10/21 08:56 Diltiazem Er (24 hr) 180 Mg Capsule PO 180 mg DAILY DONN Administration Docusate Sodium 100 mg 04/10/21 09:00 04/10/21 08:56 Docusate Sodium 100 Mg Capsule PO 100 mg BID DONN Administration Folic Acid 1 mg 04/10/21 09:00 04/10/21 08:56 Folic Acid 1 Mg Tablet PO 1 mg DAILY DONN Administration Furosemide 40 mg 04/10/21 06:00 04/10/21 06:20 Furosemide 10 Mg /Ml Sdv 4ml IVP 40 mg Q12H DONN Administration Lisinopril 5 mg 04/10/21 06:00 04/10/21 06:20 Lisinopril 20 Mg Tablet PO 5 mg QAM DONN Administration Lorazepam 0.25 mg 04/10/21 02:14 04/10/21 06:20 Lorazepam 0.5 Mg Tablet PO 0.25 mg TID PRN Administration Anxiety Metoprolol Tartrat e 25 mg 04/10/21 02:15 04/10/21 02:48 Metoprolol Tartr ate 50 Mg Tablet PO 25 mg Q12H DONN Administration Oxycodone HCl 5 mg 04/10/21 02:14 04/10/21 11:35 Oxycodone 5 Mg I r Tab/Cap PO 5 mg Q4H PRN Administration moderate to sever e pain first Pantoprazole Sodiu m 40 mg 04/10/21 09:00 04/10/21 08:[address] 40 Mg Tablet PO 40 mg DAILY DONN Administration Potassium Chloride 20 meq 04/10/21 09:00 04/10/21 08:56 Potassium Chlori de Er 20 Meq Table t PO 20 meq DAILY DONN Administration Vitamin D 2,000 unit 04/10/21 09:00 04/10/21 08:56 Cholecalciferol (Vitamin D3) 1,000 Unit Tablet PO 2,000 unit DAILY DONN Administration Zinc Gluconate 50 mg 04/10/21 09:00 04/10/21 08:56 Zinc Gluconate 5 0 Mg Tablet PO 50 mg DAILY DONN Administration Vitals/I&O/Wt Last Vital Signs Temp 97.6 F 04/10/21 08:00 Pulse 94 04/10/21 08:00 Resp 18 04/10/21 11:35 BP 130/60 04/10/21 08:00 Pulse Ox 99 04/10/21 11:35 04/09/21 04/10/21 04/10/21 22:59 06:59 14:59 Intake Total 100 / 100 340 / 340 Output Total 1100 / 1100 Balance 100 / 100 -760 / -760 Weight last 48 hrs Weight 82.962 kg Weight 82.962 kg Weight 90.718 kg Physical Exam Const: COMMON NORMALS: patient oriented x3 HENMT: COMMON NORMALS: normocephalic and atraumatic HEAD & SCALP: normocephalic and atraumatic Resp: EFFORT & INSPECTION: Yes respiratory distress, Yes labored and Yes uses accessory muscles OTHER: Diminished air entry bilaterally Cardio: COMMON NORMALS: regular rate, regular rhythm, S1 normal heart sound present, S2 normal heart sound present, No gallops present (Cardio), No murmurs present (Cardio), No rub (Cardio) and Peripheral pulses 2+ throughout RATE: regular rate RHYTHM: regular rhythm HEART SOUNDS: S1 normal heart sound present and S2 normal heart sound present PERIPHERAL PULSES: Peripheral pulses 2+ throughout GI: COMMON NORMALS: Normal to inspection, nondistended, normoactive bowel sounds present, Soft to palpation, non-tender, No hepatosplenomegaly present and no masses AUSCULTATION: Yes normoactive bowel sounds PALPATION: Yes Soft to palpation and Yes No hepatosplenomegaly present RECTAL EXAM: Yes deferred Extremity: NARRATIVE EXTREMITY EXAM: Bilateral lower extremity redness , bilateral lower extremity 3+ pitting edema Neuro: COMMON NORMALS: patient oriented x3 Urinary Catheter Management^: Lewis: Cath Placed During This Visit: yes Reason for Continuing Indwelling Catheter: Acute Urinary Retention or Obstruction Urinary Catheter Date of Insertion: 04/10/21 Data : 04/09/21 16:20 04/09/21 16:20 A&P Assessment and plan (1) Acute respiratory distress: Status: Acute (2) COVID-19: Status: Acute (3) Heart failure with preserved ejection fraction, borderline, class III: Acute on chronic, clinically appears to have more right-sided failure with extensive lower extremity edema exacerbated by him sitting on the side of the bed and dangling his legs constantly. Fraction 55% mid March. Status: Chronic (4) COPD (chronic obstructive pulmonary disease): Chronic with acute exacerbation within differential but difficult to separate from other concurrent diagnoses Status: Chronic Qualifiers: COPD type: COPD with acute exacerbation Qualified Code(s): J44.1 - Chronic obstructive pulmonary disease with (acute) exacerbation (5) Coronary artery disease: With angioplasty x2 vessels in March 19, 2021 Status: Chronic Qualifiers: Coronary Disease-Associated Artery/Lesion type: [place] artery [place] vs. transplanted heart: [place] heart Associated angina: without angina Qualified Code(s): I25.10 - Atherosclerotic heart disease of [place] coronary artery without angina pectoris (6) Atrial fibrillation: Chronic, currently with rapid ventricular response secondary to acute respiratory issues Status: Chronic (7) Aortic stenosis: Chronic, aortic valve area in March 2021 was 1.1 cm? with a mean gradient of 12.7 mmHg Status: Chronic Qualifiers: Cardiac valve disease etiology: nonrheumatic Qualified Code(s): I35.0 - Nonrheumatic aortic (valve) stenosis (8) Chronic anticoagulation: With Eliquis Status: Acute (9) Macrocytosis: Currently with anemia, lower than prior baseline but similar to recent values, no reported active bleeding, could be delutional from volume overload or related to iatrogenic blood losses as he has been in the hospital pretty much since mid March. Had low folate levels in the past. Status: Chronic (10) Hepatitis C: Details unknown but has associated chronic liver enzyme elevation, mild and ascites Status: Chronic Qualifiers: Viral hepatitis chronicity: chronic Hepatic coma status: without hepatic coma Qualified Code(s): B18.2 - Chronic viral hepatitis C (11) Hypertension: Chronic, blood pressures are currently lower end of normal range Status: Chronic Qualifiers: Hypertension type: primary hypertension Qualified Code(s): I10 - Essential (primary) hypertension (12) Incisional hernia: Chronic left side of the abdomen, when he lies back in bed it is soft though tender, upright not as soft, large enough that risk of incarceration is lower Status: Chronic Qualifiers: Obstruction and gangrene presence: without obstruction or gangrene Qualified Code(s): K43.2 - Incisional hernia without obstruction or gangrene (13) Right lower lobe pulmonary nodule: Chronic, increasing in size and associated with a right middle lobe nodule as well, concerning for malignancy Status: Chronic Additional A&P Information #Acute on chronic hypoxic respiratory failure: Multifactorial, Covid pneumonia, decompensated heart failure predominantly right-sided heart failure, COPD. Patient presented with worsening shortness of breath, has worsening bilateral lower extremity edema, increased supplemental oxygen requirement. XR chest : Currently no infiltrates, likely early in the disease process Right lower lobe 2.2 mm pulmonary nodule again seen which appears suspicious for malignancy. ABG: pH 7.48 PCO2 38 PO2 99, FiO2 40% proBNP:1428 Troponin trend without significant delta. Currently monitor inflammatory markers (ESR CRP D-dimer ferritin LDH) Procalcitonin: Blood culture Monitor ABG Monitor x-ray chest Duo nebs Budesonide inhaler Supplemental oxygen as needed Remdesivir for 5 days Dexamethasone 6 mg I.V daily for 10 days Empirically on Zosyn Eliquis 5 mg p.o. twice daily Zinc, ascorbic acid #History of coronary artery disease s/p recent PTCA : Continue Plavix, Eliquis and statin Sublingual nitro as needed #History of A. 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 Continue Lasix Fluid restriction Monitor BMP #Bilateral lower extremity cellulitis: #CODE STATUS: Full code #DVT prophylaxis: Not needed on Eliquis Attestations Medical Necessity Statement*: Patient needs to be in hospital for management of pneumonia. Time Spent in Patient Care: Greater than 35 minutes (>than 50% of time spent in counselling and/or direct pt care on unit). Coding Level of Care Code Acute Editor At Large for g Fwd Diagnoses Acute respiratory distress R06.03 COVID-19 U07.1 Heart failure with preserved ejection fraction, borderline, class III I50.30 COPD (chronic obstructive pulmonary disease) J44.1 COPD type: COPD with acute exacerbation Coronary artery disease I25.10 Coronary Disease-Associated Artery/Lesion type: [place] artery [place] vs. transplanted heart: [place] heart Associated angina: without angina Atrial fibrillation I48.91 Aortic stenosis I35.0 Cardiac valve disease etiology: nonrheumatic Chronic anticoagulation Z79.01 Macrocytosis D75.89 Hepatitis C B18.2 Viral hepatitis chronicity: chronic Hepatic coma status: without hepatic coma Hypertension I10 Hypertension type: primary hypertension Incisional hernia K43.2 Obstruction and gangrene presence: without obstruction or gangrene Right lower lobe pulmonary nodule R91.1
[2021-04-10] MEDS: piperacillin-tazobactam 3.375 GM in sodium chloride 0.9% (plus) 50 ML IV ×2 (13:33→21:48)
--- NOTE | 2021-04-10 15:00 | PC.NURSE ---
O'Brien Pt is yelling in the room. help, help, i can't breathe. Pt is sitting on the edge of the bed. his oxygen is off the from his mouth. SpO2 is at 92-98%. Pt reassured and he said, give me something to help me breathe. ATivan and Oxy IR were given but to no effect. Notified and we will give some Morphine IV as ordered. we will move the pt closer to the nurses station since he don't use his call light and he is on isolation and will keep yelling in his room for help.
--- NOTE | 2021-04-10 15:30 | PC.NURSE ---
Pt got up by himself to the bedside commode his atkins catheter was stretch and now he said he can't urinate. pt has urine flowing in the catheter. informed pt his catheter is intact.
[2021-04-10] MEDS: morphine 4 mg/mL SDV 1 mL 2 MG IVP ×2 (15:36→22:05)
--- NOTE | 2021-04-10 20:20 | PC.NURSE ---
Patient refusing to have telemetry leads and 02 sensor on. Educated on why we need to keep them on as he has respiratory issue due to covid. Patient refused wear for both myself and nurses aide.
--- NOTE | 2021-04-10 20:41 | PC.NURSE ---
Patient refuses heart monitor and oxygen probe. Patient stated Just give me something to eat. RN notified. Heart monitor leads have been replaced on patient multiple times and patient continually removes them.
[2021-04-10] MEDS: dexamethasone 4 mg/mL INJ 6 MG IVP (21:50)
[2021-04-10] MEDS: haloperidol 1 mg Tablet 0.5 MG PO (21:51)
[2021-04-10] MEDS: diphenhydrAMINE 50 mg Capsule PO (21:53)
--- NOTE | 2021-04-10 23:30 | PC.NURSE ---
Patient continuing to yell and put non cdl driver light asking for someone to sit in the room. Patient advised he has covid and that we cannot stay in the room with him. Patient stated that he did not know he had covid and does not want it. Phoned MD for orders for medicine to calm patient. Will continue to monitor.
[2021-04-11] VITALS (14 sets, daily range): BP systolic 116–128; BP diastolic 60–78; PULSE 58–99; RESP 18–26; TEMP 37.1; O2SAT 93–98; BMI 33.4
[2021-04-11] MEDS: metoprolol tartrate 50 mg Tablet 25 MG PO ×2 (03:36→14:27)
--- NOTE | 2021-04-11 04:59 | PC.NURSE ---
Patient yelling for nurse and when this nurse entered the room he states I have blood everywhere and I don't know where it came from. IV had been taken out of arm and dressing thrown in the garbage. Patient states he does not know how that came out. New IV put in and patient educated once more on importance of leaving IV and telemetry stickers intact for monitoring and treatment purposes. Will continue to monitor.
--- NOTE | 2021-04-11 05:06 | PC.NURSE ---
Frequent safety and comfort rounds continue. Orders and/or nursing care completed as indicated. Patient monitored for response to intervention and treatment(s). Education provided includes reason for medications and telemetry monitoring.. Patient and/or account representative refuses to leave leads intact. Will continue to monitor.
[2021-04-11] MEDS: piperacillin-tazobactam 3.375 GM in sodium chloride 0.9% (plus) 50 ML IV ×3 (05:17→21:09)
[2021-04-11] MEDS: FUROsemide 10 mg/mL SDV 4mL 40 MG IVP ×2 (05:19→18:30)
[2021-04-11] MEDS: lisinopril 20 mg Tablet 5 MG PO (05:19)
--- NOTE | 2021-04-11 05:57 | PC.NURSE ---
Requested patient once more to please allow monitoring. Patient refuses stating I am not able to move with that stuff on me and I don't want it. Will continue to monitor.
[2021-04-11] MEDS: zinc gluconate 50 mg Tablet PO (08:49)
[2021-04-11] MEDS: pantoprazole DR 40 mg Tablet PO (08:49)
[2021-04-11] MEDS: dilTIAZem ER (24HR) 180 mg Capsule PO (08:49)
[2021-04-11] MEDS: folic acid 1 mg Tablet PO (08:49)
[2021-04-11] MEDS: docusate sodium 100 mg Capsule PO ×2 (08:49→18:31)
[2021-04-11] MEDS: clopidogrel 75 mg Tablet PO (08:49)
[2021-04-11] MEDS: potassium chloride ER 20 mEq Tablet PO (08:49)
[2021-04-11] MEDS: cholecalciferol (vitamin D3) 1,000 unit Tablet 2000 UNIT PO (08:49)
[2021-04-11] MEDS: ascorbic acid 500 mg Tablet 1000 MG PO ×2 (08:49→18:30)
[2021-04-11] MEDS: apixaban 5 mg Tablet PO ×2 (08:53→21:11)
[2021-04-11] MEDS: remdesivir 100 MG in sodium chloride 0.9% (100 ml) 100 ML IV (09:01)
[2021-04-11 09:12] LABS: Fibrinogen 358 mg/dL (174-498); INR 1.41 (0.8-1.2)
--- NOTE | 2021-04-11 09:21 | PC.CHAP ---
Pastoral Care Encounter/Spiritual Assessment Type of Contact [] Declined domestic cleaner visit [] Patient/Family/Request visit [] Outpatient visit [] Follow-up visit [] Physician referral [] Code/Alert [x] Routine visit [] Staff referral [] Actively dying [] Patient sleeping [] Family support [] [] Out of room [] Palliative care [] [] Receiving care in room [] Pre-surgical visit [] Trauma [] Long length of stay [] ICU visit [x] Other: isolated Relational/Emotional Strength [] Patient feels connected with others/family/visitors/staff [] Distress [] Loneliness/isolation [] Abandonment Spirituality of Patient [] Person of Karen [] Attends Baptism of their Karen [] Believes in Prayer [] Reads Bible or Mu-Ism materials [] There are Spiritual issues to be addressed Ceramic Worker Interventions [x] Prayer [] Active listening [] Non-anxious presence [] Spiritual/emotional support [] Crisis/trauma care [] Spiritual counseling [] Bereavement support [] Provided bereavement packet [] Provided Bible/devotional materials [] Provided toy/stuffed animal, coloring book to patient or family member [] Provided Communion [] Anointing/[place] [] Salvation [x] Completed spiritual assessment [] Other: Impact on Illness or Injury [] Angry [] Fearful [] Anxious [] Often cries [] Exhaustion [] Unable to work [] Unable to attend scientologist [] Unable to walk/stand [] Unable to read [] Unable to drive [] Unable to eat/drink [] Unable to sleep [] Unable to be with family [] Patient intubated [] Other: Summary Time spent with patient
[2021-04-11] MEDS: budesonide 0.5 mg/2 mL Neb INHALATION ×2 (09:40→20:24)
[2021-04-11] MEDS: ipratropium-albuterol 3 mL Neb INHALATION ×2 (09:40→20:24)
--- NOTE | 2021-04-11 14:22 | P.PN_ITS ---
Subjective Subjective: Interval history: Patient was seen this morning, he was sitting up beside the bed, enjoying oatmeal, nursing staff tell me that overnight he refused to take medications, refuses to wear his oxygen at times, currently at 6 L, denies any shortness of breath, tells me that his lower extremity edema has significant improved, no fevers, no chest pain Vitals/I&O/Wt Last Vital Signs Temp 98.8 F 04/11/21 06:00 Pulse 89 04/11/21 09:46 Resp 18 04/11/21 09:40 BP 122/78 04/11/21 06:00 Pulse Ox 93 04/11/21 09:40 04/10/21 04/11/21 04/11/21 22:59 06:59 14:59 Intake Total 386 / 726 100 / 826 150 / 150 Output Total 1100 / 2200 550 / 2750 Balance -714 / -1474 -450 / -1924 150 / 150 Weight last 48 hrs Weight 82.962 kg Weight 82.962 kg Weight 82.962 kg Weight 90.718 kg Physical Exam Const: COMMON NORMALS: no acute distress and patient oriented x3 Resp: COMMON NORMALS: normal respiratory effort, No retractions and No use of accessory muscles AUSCULTATION: wheezes Cardio: COMMON NORMALS: regular rate, regular rhythm, S1 normal heart sound present and S2 normal heart sound present RATE: regular rate RHYTHM: regular rhythm HEART SOUNDS: S1 normal heart sound present and S2 normal heart sound present GI: COMMON NORMALS: Normal to inspection, nondistended, normoactive bowel sounds present, Soft to palpation and non-tender PALPATION: Yes Soft to palpation OTHER: Ventral hernia, reducible Extremity: COMMON NORMALS: no pedal edema Neuro: COMMON NORMALS: patient oriented x3 Urinary Catheter Management^: Lewis: Cath Placed During This Visit: yes Reason for Continuing Indwelling Catheter: Acute Urinary Retention or Obstruction Urinary Catheter Date of Insertion: 04/10/21 Data : 04/09/21 16:20 04/09/21 16:20 Micro: Microbiology 04/10/21 08:30 Blood Culture - Preliminary Blood SPECIMEN COLLECTED 04/10/21 08:27 Blood Culture - Preliminary Blood SPECIMEN COLLECTED A&P Assessment and plan (1) Acute respiratory distress: Status: Acute (2) COVID-19: Status: Acute (3) Heart failure with preserved ejection fraction, borderline, class III: Acute on chronic, clinically appears to have more right-sided failure with extensive lower extremity edema exacerbated by him sitting on the side of the bed and dangling his legs constantly. Fraction 55% mid March. Status: Chronic (4) COPD (chronic obstructive pulmonary disease): Chronic with acute exacerbation within differential but difficult to separate from other concurrent diagnoses Status: Chronic Qualifiers: COPD type: COPD with acute exacerbation Qualified Code(s): J44.1 - Chronic obstructive pulmonary disease with (acute) exacerbation (5) Coronary artery disease: With angioplasty x2 vessels in March 19, 2021 Status: Chronic Qualifiers: Coronary Disease-Associated Artery/Lesion type: [place] artery [place] vs. transplanted heart: [place] heart Associated angina: without angina Qualified Code(s): I25.10 - Atherosclerotic heart disease of [place] coronary artery without angina pectoris (6) Atrial fibrillation: Chronic, currently with rapid ventricular response secondary to acute respiratory issues Status: Chronic (7) Aortic stenosis: Chronic, aortic valve area in March 2021 was 1.1 cm? with a mean gradient of 12.7 mmHg Status: Chronic Qualifiers: Cardiac valve disease etiology: nonrheumatic Qualified Code(s): I35.0 - Nonrheumatic aortic (valve) stenosis (8) Chronic anticoagulation: With Eliquis Status: Acute (9) Macrocytosis: Currently with anemia, lower than prior baseline but similar to recent values, no reported active bleeding, could be delutional from volume overload or related to iatrogenic blood losses as he has been in the hospital pretty much since mid March. Had low folate levels in the past. Status: Chronic (10) Hepatitis C: Details unknown but has associated chronic liver enzyme elevation, mild and ascites Status: Chronic Qualifiers: Viral hepatitis chronicity: chronic Hepatic coma status: without hepatic coma Qualified Code(s): B18.2 - Chronic viral hepatitis C (11) Hypertension: Chronic, blood pressures are currently lower end of normal range Status: Chronic Qualifiers: Hypertension type: primary hypertension Qualified Code(s): I10 - Essential (primary) hypertension (12) Incisional hernia: Chronic left side of the abdomen, when he lies back in bed it is soft though tender, upright not as soft, large enough that risk of incarceration is lower Status: Chronic Qualifiers: Obstruction and gangrene presence: without obstruction or gangrene Qualified Code(s): K43.2 - Incisional hernia without obstruction or gangrene (13) Right lower lobe pulmonary nodule: Chronic, increasing in size and associated with a right middle lobe nodule as well, concerning for malignancy Status: Chronic Additional A&P Information #Acute on chronic hypoxic respiratory failure: Multifactorial, Covid pneumonia, decompensated heart failure predominantly right-sided heart failure, COPD. Patient presented with worsening shortness of breath, has worsening bilateral lower extremity edema, increased supplemental oxygen requirement. XR chest : Currently no infiltrates, likely early in the disease process Right lower lobe 2.2 mm pulmonary nodule again seen which appears suspicious for malignancy. ABG: pH 7.48 PCO2 38 PO2 99, FiO2 40% proBNP:1428 Troponin trend without significant delta. Currently monitor inflammatory markers (ESR CRP D-dimer ferritin LDH) Monitor procalcitonin Blood culture Monitor ABG Monitor x-ray chest Duo nebs Budesonide inhaler Supplemental oxygen as needed Remdesivir for 5 days Dexamethasone 6 mg I.V daily for 10 days Empirically on Zosyn Eliquis 5 mg p.o. twice daily Zinc, ascorbic acid #History of coronary artery disease s/p recent PTCA : Continue Plavix, Eliquis and statin Sublingual nitro as needed #History of A. 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 Continue Lasix Fluid restriction Monitor BMP #Bilateral lower extremity cellulitis: #CODE STATUS: Full code #DVT prophylaxis: Not needed on Eliquis Attestations Medical Necessity Statement*: Patient requires hospitalization for COVID-19 pneumonia Coding Level of Care Code Acute Tray Checker for [facility] Diagnoses Acute respiratory distress R06.03 COVID-19 U07.1 Heart failure with preserved ejection fraction, borderline, class III I50.30 COPD (chronic obstructive pulmonary disease) J44.1 COPD type: COPD with acute exacerbation Coronary artery disease I25.10 Coronary Disease-Associated Artery/Lesion type: [place] artery [place] vs. transplanted heart: [place] heart Associated angina: without angina Atrial fibrillation I48.91 Aortic stenosis I35.0 Cardiac valve disease etiology: nonrheumatic Chronic anticoagulation Z79.01 Macrocytosis D75.89 Hepatitis C B18.2 Viral hepatitis chronicity: chronic Hepatic coma status: without hepatic coma Hypertension I10 Hypertension type: primary hypertension Incisional hernia K43.2 Obstruction and gangrene presence: without obstruction or gangrene Right lower lobe pulmonary nodule R91.1
[2021-04-11] MEDS: morphine 4 mg/mL SDV 1 mL 2 MG IVP ×2 (14:38→21:12)
--- NOTE | 2021-04-11 21:00 | PC.NURSE ---
Patient at change of shift refusing telemetry monitoring again. Took vitals and he insisted I take off. on call pharmacy technician light requesting something to drink and educated by this RN again about his fluid restriction. Patient upset stating that he is sick of us telling him this. Will continue to monitor.
[2021-04-11] MEDS: haloperidol 1 mg Tablet 0.5 MG PO (21:10)
[2021-04-11] MEDS: dexamethasone 4 mg/mL INJ 6 MG IVP (21:11)
[2021-04-11] MEDS: diphenhydrAMINE 50 mg Capsule PO (21:11)
--- NOTE | 2021-04-11 22:00 | PC.NURSE ---
Patient transmissions systems operator light frequently requesting food or beverage. Again re-educated patient that he is on a fluid restriction. Upset that he has covid and would like this door open but educated again that we cannot keep door open with covid. Patient also naked, refuses to leave gown on. Will continue to monitor.
[2021-04-12] VITALS (18 sets, daily range): BP systolic 105–141; BP diastolic 72–105; PULSE 60–158; RESP 16–25; TEMP 36.9; O2SAT 93–100; BMI 33.4
--- NOTE | 2021-04-12 00:57 | PC.NURSE ---
Addendum entered by Sandy Angela RN 04/12/21 00:58: Patient states to nurse I will just get up to the sink and get some myself. Patient educated on fluid restriction and fall risk and verbalized understanding. Bed alarm set. Original Note: Patient asks multiple times for milk and water. Patient educated multiple times on fluid restriction. Patient verbalizes understanding with each teaching, however soon asks again.
[2021-04-12 03:33] LABS: Basophils % 0.1 %; Hematocrit 36.1 % (42.0-52.0); Hemoglobin 12.2 g/dL (11.7-16.6); Lymphocytes # 1.9 10^3/uL (0.8-4.8); Lymphocytes % 16.9 %; Mean Corpuscular HGB Conc 33.8 g/dL (30.0-36.0); Mean Corpuscular Hemoglobin 34.8 pg (28.0-34.0); Mean Corpuscular Volume 102.8 fl (80-94); Mean Platelet Volume 10.9 fL (7.4-10.4); Monocytes # 0.9 10^3/uL (0.2-0.9); Monocytes % 8.4 %; Neutrophils % 74.1 %; Nucleated Red Blood Cells % 0 %; Platelet Count 280 10^3/cmm (130-400); Red Blood Count 3.51 10^6/uL (4.1-5.3); Red Cell Distribution Width 14.5 % (12.1-15.1); White Blood Count 10.9 10^3/uL (4.0-10.0)
[2021-04-12 03:45] LABS: INR 1.49 (0.8-1.2)
--- NOTE | 2021-04-12 03:46 | PC.NURSE ---
Patient refusing to have telemetry monitoring attached. Will continue to monitor.
[2021-04-12 03:54] LABS: Alanine Aminotransferase 51 U/L (0-41); Alkaline Phosphatase 165 IU/L (40-130); Anion Gap 17.7 (5-19); Aspartate Amino Transferase 56 U/L (0-40); Blood Urea Nitrogen 53 mg/dL (8-23); C Reactive Protein 6.6 mg/L (0.0-4.9); Calcium 9.1 mg/dL (8.5-10.5); Carbon Dioxide 22 mmol/L (22-29); Chloride 93 mmol/L (98-107); Glucose 208 mg/dL (65-115); Magnesium 1.7 mg/dL (1.7-2.3); Osmolality Calculated 284 mOsm/kg (285-295); Phosphorus 2.7 mg/dL (2.5-4.5); Potassium 5.7 mmol/L (3.5-5.1); Sodium 127 mmol/L (136-145); Total Bilirubin 0.4 mg/dL (0.15-1.2)
[2021-04-12 04:08] LABS: NT Pro B Type Natriuretic Pept 1043 pg/mL (0-125); Procalcitonin 0.11 ng/mL (0-0.5)
[2021-04-12 04:19] LABS: Creatine Phosphokinase 61 U/L (39-308)
[2021-04-12] MEDS: piperacillin-tazobactam 3.375 GM in sodium chloride 0.9% (plus) 50 ML IV ×3 (04:19→20:31)
[2021-04-12 04:20] LABS: ABG PH Result 7.43 (7.35-7.45); Base Excess ABG 0.5 mmol/L (-2.0-2.0); Blood Gas Allen Test Pos; Blood Gas Sample Site Radial, left; Blood Gas Sample Type Arterial; HCO3 ABG 24.6 mmol/L (22-26); Oxygen Device NC; PO2 ABG 86.5 mmHg (80.0-100.0)
[2021-04-12] MEDS: metoprolol tartrate 50 mg Tablet 25 MG PO ×2 (04:20→14:51)
[2021-04-12] MEDS: FUROsemide 10 mg/mL SDV 4mL 40 MG IVP (06:26)
[2021-04-12] MEDS: lisinopril 20 mg Tablet 5 MG PO (06:27)
--- NOTE | 2021-04-12 07:00 | XR_ITS ---
WS: [id number] XR chest 1V portable [id number] REASON FOR EXAM: sob FINDINGS: Chest is unchanged compared to the examination of 04/09/2021. There is a bilobed lower right lung mass and right hilar adenopathy. No new finding. No acute chest abnormality. 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 No acute chest abnormality.
[2021-04-12] MEDS: ipratropium-albuterol 3 mL Neb INHALATION ×2 (09:08→15:01)
[2021-04-12] MEDS: budesonide 0.5 mg/2 mL Neb INHALATION ×2 (09:08→20:51)
[2021-04-12] MEDS: remdesivir 100 MG in sodium chloride 0.9% (100 ml) 100 ML IV (09:19)
[2021-04-12] MEDS: docusate sodium 100 mg Capsule PO ×2 (09:20→18:13)
[2021-04-12] MEDS: folic acid 1 mg Tablet PO (09:20)
[2021-04-12] MEDS: cholecalciferol (vitamin D3) 1,000 unit Tablet 2000 UNIT PO (09:20)
[2021-04-12] MEDS: ascorbic acid 500 mg Tablet 1000 MG PO ×2 (09:20→18:13)
[2021-04-12] MEDS: clopidogrel 75 mg Tablet PO (09:20)
[2021-04-12] MEDS: potassium chloride ER 20 mEq Tablet PO (09:20)
[2021-04-12] MEDS: pantoprazole DR 40 mg Tablet PO (09:20)
[2021-04-12] MEDS: dilTIAZem ER (24HR) 180 mg Capsule PO (09:21)
[2021-04-12] MEDS: apixaban 5 mg Tablet PO ×2 (09:21→20:32)
[2021-04-12] MEDS: zinc gluconate 50 mg Tablet PO (09:21)
--- NOTE | 2021-04-12 10:19 | PC.SOCIAL ---
IMM update IMM updated with patient, verbalized an understanding. Copy Pg 2 provided. Initialled, dated, timed, and placed in chart.
--- NOTE | 2021-04-12 10:35 | PC.NURSE ---
Patient requesting more milk at this time. This nurse attempted education on fluid restrictions and treatment goal patient very resistant to learning. Stating I don't give a god damn, no matter what I say you try to turn it around like im the one doing this to me This nurse stressed that excessive intake of fluids could be one cause to swelling in extremities and sob. Patient stated I don't care I just want more milk.
--- NOTE | 2021-04-12 11:19 | ECG_ITS ---
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 Measurements Intervals [place] Rate: 127 P: [place]: QRS: 53 QRSD: 87 T: 67 QT: 262 QTc: 382 Interpretive Statements ATRIAL FIBRILLATION WITH RAPID VENTRICULAR RESPONSE WITH ABERRANT CONDUCTION OR VENTRICULAR PREMATURE COMPLEXES MODERATE ST DEPRESSION [0.05+ mV ST DEPRESSION] Compared to ECG 04/09/2021 15:56:00 Ventricular premature complex(es) now present Aberrant conduction of supraventricular beat(s) now present ST (T wave) deviation still present Electronically Signed On 04-13-2021 19:52:54 VEHICLE ASSEMBLER by Jeannie Ibarra M.D. [id number]
[2021-04-12] MEDS: insulin regular-human 10 UNIT in SYRINGE 1 EACH 3 UNIT IVP (11:45)
[2021-04-12] MEDS: dextrose 50% syringe 50 mL IVP (11:45)
[2021-04-12] MEDS: calcium gluconate 0.9% NaCL 1 GM/50 ML PREMIX IV (11:45)
--- NOTE | 2021-04-12 13:41 | P.PN_ITS ---
Subjective Subjective: Interval history: Patient was seen this morning, he was not using his oxygen when I entered the room, his nasal cannula was off, advised compliance, he oxygen saturations are in the low 80s, he is complaining of shortness of breath, denied any chest pain, but did have complaints of palpitations, no lightheadedness, dizziness, no nausea, no vomiting, his edema has improved he tells me, he was found to be in A. fib with RVR, heart rates in the 150s, started on Cardizem DRIP Vitals/I&O/Wt Last Vital Signs Temp 98.4 F 04/12/21 00:00 Pulse 98 04/12/21 09:20 Resp 18 04/12/21 09:19 BP 122/78 04/12/21 03:50 Pulse Ox 93 04/12/21 09:20 04/11/21 04/12/21 04/12/21 22:59 06:59 14:59 Intake Total 490 / 1480 100 / 1580 200.1 / 200.1 Output Total 900 / 2250 1800 / 1800 Balance -410 / -770 100 / -670 -1599.9 / -1599.9 Weight last 48 hrs Weight 82.962 kg Weight 82.962 kg Physical Exam Const: COMMON NORMALS: no acute distress and patient oriented x3 Resp: COMMON NORMALS: normal respiratory effort, No retractions and No use of accessory muscles AUSCULTATION: wheezes Cardio: COMMON NORMALS: S1 normal heart sound present and S2 normal heart sound present RATE: tachycardic RHYTHM: abnormal rhythm irregularly irregular HEART SOUNDS: S1 normal heart sound present and S2 normal heart sound present GI: COMMON NORMALS: Normal to inspection, nondistended, normoactive bowel sounds present, Soft to palpation and non-tender PALPATION: Yes Soft to palpation OTHER: Ventral hernia, reducible Extremity: COMMON NORMALS: no pedal edema Neuro: COMMON NORMALS: patient oriented x3 Psych: COMMON NORMALS: mental status grossly normal Urinary Catheter Management^: Lewis: Cath Placed During This Visit: yes Reason for Continuing Indwelling Catheter: Accurate Measurement of Urinary Output in Critically Ill Patients Urinary Catheter Date of Insertion: 04/10/21 Data : 04/12/21 03:09 04/12/21 03:09 Micro: Microbiology 04/10/21 08:30 Blood Culture - Preliminary Blood NEGATIVE TO DATE 04/10/21 08:27 Blood Culture - Preliminary Blood NEGATIVE TO DATE A&P Assessment and plan (1) Acute respiratory distress: Status: Acute (2) COVID-19: Status: Acute (3) Heart failure with preserved ejection fraction, borderline, class III: Acute on chronic, clinically appears to have more right-sided failure with extensive lower extremity edema exacerbated by him sitting on the side of the bed and dangling his legs constantly. Fraction 55% mid March. Status: Chronic (4) COPD (chronic obstructive pulmonary disease): Chronic with acute exacerbation within differential but difficult to separate from other concurrent diagnoses Status: Chronic Qualifiers: COPD type: COPD with acute exacerbation Qualified Code(s): J44.1 - Chronic obstructive pulmonary disease with (acute) exacerbation (5) Coronary artery disease: With angioplasty x2 vessels in March 19, 2021 Status: Chronic Qualifiers: Coronary Disease-Associated Artery/Lesion type: [place] artery [place] vs. transplanted heart: [place] heart Associated angina: without angina Qualified Code(s): I25.10 - Atherosclerotic heart disease of [place] coronary artery without angina pectoris (6) Atrial fibrillation: Chronic, currently with rapid ventricular response secondary to acute respiratory issues Status: Chronic (7) Aortic stenosis: Chronic, aortic valve area in March 2021 was 1.1 cm? with a mean gradient of 12.7 mmHg Status: Chronic Qualifiers: Cardiac valve disease etiology: nonrheumatic Qualified Code(s): I35.0 - Nonrheumatic aortic (valve) stenosis (8) Chronic anticoagulation: With Eliquis Status: Acute (9) Macrocytosis: Currently with anemia, lower than prior baseline but similar to recent values, no reported active bleeding, could be delutional from volume overload or related to iatrogenic blood losses as he has been in the hospital pretty much since mid March. Had low folate levels in the past. Status: Chronic (10) Hepatitis C: Details unknown but has associated chronic liver enzyme elevation, mild and ascites Status: Chronic Qualifiers: Viral hepatitis chronicity: chronic Hepatic coma status: without hepatic coma Qualified Code(s): B18.2 - Chronic viral hepatitis C (11) Hypertension: Chronic, blood pressures are currently lower end of normal range Status: Chronic Qualifiers: Hypertension type: primary hypertension Qualified Code(s): I10 - Essential (primary) hypertension (12) Incisional hernia: Chronic left side of the abdomen, when he lies back in bed it is soft though tender, upright not as soft, large enough that risk of incarceration is lower Status: Chronic Qualifiers: Obstruction and gangrene presence: without obstruction or gangrene Qualified Code(s): K43.2 - Incisional hernia without obstruction or gangrene (13) Right lower lobe pulmonary nodule: Chronic, increasing in size and associated with a right middle lobe nodule as well, concerning for malignancy Status: Chronic Additional A&P Information #Acute on chronic hypoxic respiratory failure: Multifactorial, Covid pneumonia, decompensated heart failure predominantly right-sided heart failure, COPD. Patient presented with worsening shortness of breath, has worsening bilateral lower extremity edema, increased supplemental oxygen requirement. XR chest : Currently no infiltrates, likely early in the disease process Right lower lobe 2.2 mm pulmonary nodule again seen which appears suspicious for malignancy. Troponin trend without significant delta. Currently monitor inflammatory markers (ESR CRP D-dimer ferritin LDH) Monitor procalcitonin Blood culture Monitor ABG Monitor x-ray chest Duo nebs Budesonide inhaler Supplemental oxygen as needed Remdesivir for 5 days Switch to Solu-Medrol 60 every 6 hours Empirically on Zosyn Eliquis 5 mg p.o. twice daily Zinc, ascorbic acid #Hyperkalemia, potassium 5.7, with A. fib with RVR, will give a gram of calcium gluconate, amp of D50 with 10 units of IV insulin, recheck BMP in the afternoon #History of coronary artery disease s/p recent PTCA : Continue Plavix, Eliquis and statin Sublingual nitro as needed #History of A. fib: Currently in A. 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 Continue Lasix Fluid restriction Monitor BMP #Bilateral lower extremity cellulitis: On Zosyn as above #CODE STATUS: Full code #DVT prophylaxis: Not needed on Eliquis Attestations Medical Necessity Statement*: His hospitalization for COVID-19 pneumonia, A. fib with RVR, Coding Level of Care Code Acute Marble Helper for Chg Fwd Diagnoses Acute respiratory distress R06.03 COVID-19 U07.1 Heart failure with preserved ejection fraction, borderline, class III I50.30 COPD (chronic obstructive pulmonary disease) J44.1 COPD type: COPD with acute exacerbation Coronary artery disease I25.10 Coronary Disease-Associated Artery/Lesion type: [place] artery [place] vs. transplanted heart: [place] heart Associated angina: without angina Atrial fibrillation I48.91 Aortic stenosis I35.0 Cardiac valve disease etiology: nonrheumatic Chronic anticoagulation Z79.01 Macrocytosis D75.89 Hepatitis C B18.2 Viral hepatitis chronicity: chronic Hepatic coma status: without hepatic coma Hypertension I10 Hypertension type: primary hypertension Incisional hernia K43.2 Obstruction and gangrene presence: without obstruction or gangrene Right lower lobe pulmonary nodule R91.1
[2021-04-12 14:22] LABS: Blood Urea Nitrogen 50 mg/dL (8-23); Carbon Dioxide 21 mmol/L (22-29); Chloride 92 mmol/L (98-107); Glucose 337 mg/dL (65-115); Osmolality Calculated 287 mOsm/kg (285-295); Sodium 125 mmol/L (136-145)
[2021-04-12] MEDS: dilTIAZem 60 mg Tablet PO (18:13)
[2021-04-13] VITALS (7 sets, daily range): BP systolic 129–142; BP diastolic 82–90; PULSE 63–68; RESP 16–18; O2SAT 100; BMI 26.5
[2021-04-13] MEDS: LORazepam 0.5 mg Tablet 0.25 MG PO (00:38)
[2021-04-13] MEDS: morphine 4 mg/mL SDV 1 mL 2 MG IVP (00:40)
[2021-04-13] MEDS: metoprolol tartrate 50 mg Tablet 25 MG PO (01:27)
[2021-04-13] MEDS: dilTIAZem 60 mg Tablet PO ×2 (01:28→05:15)
[2021-04-13] MEDS: piperacillin-tazobactam 3.375 GM in sodium chloride 0.9% (plus) 50 ML IV (05:14)
[2021-04-13] MEDS: docusate sodium 100 mg Capsule PO (08:46)
[2021-04-13] MEDS: zinc gluconate 50 mg Tablet PO (08:46)
[2021-04-13] MEDS: ascorbic acid 500 mg Tablet 1000 MG PO (08:46)
[2021-04-13] MEDS: pantoprazole DR 40 mg Tablet PO (08:46)
[2021-04-13] MEDS: apixaban 5 mg Tablet PO (08:46)
[2021-04-13] MEDS: remdesivir 100 MG in sodium chloride 0.9% (100 ml) 100 ML IV (08:46)
[2021-04-13] MEDS: folic acid 1 mg Tablet PO (08:46)
[2021-04-13] MEDS: cholecalciferol (vitamin D3) 1,000 unit Tablet 2000 UNIT PO (08:46)
[2021-04-13] MEDS: clopidogrel 75 mg Tablet PO (08:46)
[2021-04-13 08:56] LABS: Basophils % 0.1 %; Hematocrit 35.3 % (42.0-52.0); Hemoglobin 11.8 g/dL (11.7-16.6); Lymphocytes # 1.8 10^3/uL (0.8-4.8); Lymphocytes % 17.8 %; Mean Corpuscular HGB Conc 33.4 g/dL (30.0-36.0); Mean Corpuscular Volume 104.7 fl (80-94); Mean Platelet Volume 10.9 fL (7.4-10.4); Monocytes # 0.7 10^3/uL (0.2-0.9); Monocytes % 6.5 %; Neutrophils # 7.56 10^3/uL (1.8-7.7); Neutrophils % 74.9 %; Nucleated Red Blood Cells % 0 %; Platelet Count 259 10^3/cmm (130-400); Red Blood Count 3.37 10^6/uL (4.1-5.3); Red Cell Distribution Width 14.6 % (12.1-15.1); White Blood Count 10.1 10^3/uL (4.0-10.0)
[2021-04-13 09:01] LABS: INR 1.48 (0.8-1.2)
[2021-04-13 09:08] LABS: Alanine Aminotransferase 38 U/L (0-41); Albumin Level 2.8 g/dL (3.5-5.2); Alkaline Phosphatase 151 IU/L (40-130); Aspartate Amino Transferase 35 U/L (0-40); Blood Urea Nitrogen 47 mg/dL (8-23); C Reactive Protein 3.1 mg/L (0.0-4.9); Calcium 8.1 mg/dL (8.5-10.5); Carbon Dioxide 20 mmol/L (22-29); Chloride 93 mmol/L (98-107); Globulin 4.8 g/dL (1.3-4.6); Glucose 306 mg/dL (65-115); Magnesium 1.8 mg/dL (1.7-2.3); Osmolality Calculated 286 mOsm/kg (285-295); Phosphorus 3.5 mg/dL (2.5-4.5); Sodium 126 mmol/L (136-145); Total Bilirubin 0.3 mg/dL (0.15-1.2); Total Protein 7.6 g/dL (6.6-8.7)
[2021-04-13] MEDS: budesonide 0.5 mg/2 mL Neb INHALATION (09:09)
[2021-04-13] MEDS: ipratropium-albuterol 3 mL Neb INHALATION (09:09)
[2021-04-13 09:11] LABS: Anion Gap 18.3 (5-19); Potassium 5.3 mmol/L (3.5-5.1)
[2021-04-13 09:20] LABS: NT Pro B Type Natriuretic Pept 1023 pg/mL (0-125); Procalcitonin 0.07 ng/mL (0-0.5)
[2021-04-13 09:31] LABS: Creatine Phosphokinase 43 U/L (39-308)
--- NOTE | 2021-04-13 09:57 | PC.CHAP ---
Pastoral Care Encounter/Spiritual Assessment Type of Contact [] Declined cavalry scout visit [] Patient/Family/Request visit [] Outpatient visit [] Follow-up visit [] Physician referral [] Code/Alert [x] Routine visit [] Staff referral [] Actively dying [] Patient sleeping [] Family support [] [] Out of room [] Palliative care [] [x Receiving care in room [] Pre-surgical visit [] Trauma [] Long length of stay [] ICU visit [] Other: Relational/Emotional Strength [] Patient feels connected with others/family/visitors/staff [] Distress [] Loneliness/isolation [] Abandonment Spirituality of Patient [] Person of Karen [] Attends Orthodoxy of their Karen [] Believes in Prayer [] Reads Bible or Pentecostal materials [] There are Spiritual issues to be addressed Litigation Paralegal Interventions [x] Prayer [] Active listening [] Non-anxious presence [] Spiritual/emotional support [] Crisis/trauma care [] Spiritual counseling [] Bereavement support [] Provided bereavement packet [] Provided Bible/devotional materials [] Provided toy/stuffed animal, coloring book to patient or family member [] Provided Communion [] Anointing/[place] [] Salvation [x] Completed spiritual assessment [] Other: Impact on Illness or Injury [] Angry [] Fearful [] Anxious [] Often cries [] Exhaustion [] Unable to work [] Unable to attend hoahaoism [] Unable to walk/stand [] Unable to read [] Unable to drive [] Unable to eat/drink [] Unable to sleep [] Unable to be with family [] Patient intubated [] Other: Summary Time spent with patient
--- NOTE | 2021-04-13 12:30 | P.DS_ITS ---
Discharge Providers Date of Admission: 04/09/21 20:39 Date of Discharge: April 13, 2021 Attending Provider at Admission: Juliana Talbert MD Attending Provider at Discharge: Kristofer Powers MD Diagnoses at Discharge Discharge Diagnosis (1) Acute respiratory distress: Status: Acute (2) COVID-19: Status: Acute (3) Heart failure with preserved ejection fraction, borderline, class III: Status: Chronic Permanent problem details: EF 55% 03/18/21 (4) COPD (chronic obstructive pulmonary disease): Status: Chronic Qualifiers: COPD type: COPD with acute exacerbation Qualified Code(s): J44.1 - Chronic obstructive pulmonary disease with (acute) exacerbation (5) Coronary artery disease: Status: Chronic Qualifiers: Coronary Disease-Associated Artery/Lesion type: [place] artery [place] vs. transplanted heart: [place] heart Associated angina: without angina Qualified Code(s): I25.10 - Atherosclerotic heart disease of [place] coronary artery without angina pectoris (6) Atrial fibrillation: Status: Chronic (7) Aortic stenosis: Status: Chronic Permanent problem details: 03/18/21 mild to moderate, KERRY 1.1 cm2, mean gradient 12.7 Qualifiers: Cardiac valve disease etiology: nonrheumatic Qualified Code(s): I35.0 - Nonrheumatic aortic (valve) stenosis (8) Chronic anticoagulation: Status: Acute Permanent problem details: eliquis, for afib (9) Macrocytosis: Status: Chronic (10) Hepatitis C: Status: Chronic Qualifiers: Viral hepatitis chronicity: chronic Hepatic coma status: without hepatic coma Qualified Code(s): B18.2 - Chronic viral hepatitis C (11) Hypertension: Status: Chronic Qualifiers: Hypertension type: primary hypertension Qualified Code(s): I10 - Essential (primary) hypertension (12) Incisional hernia: Status: Chronic Qualifiers: Obstruction and gangrene presence: without obstruction or gangrene Qualified Code(s): K43.2 - Incisional hernia without obstruction or gangrene (13) Right lower lobe pulmonary nodule: Status: Chronic Permanent problem details: and right middle lobe, increasing size Reason for Visit Reason for Visit: SOB Hospital Course Hospital Course Robert Torres is a 75 year old male with a past medical history of atrial fibrillation on heparin drip, CAD s/p PTCA, no history of stenting, history of COPD on 3 L, diastolic and systolic CHF, hypertension, history of abdominal wall hernia, history of recent hospitalization for CAD status post angioplasty, discharged on aspirin, Eliquis, returned after discharge for CHF exacerbation diuresed over 8 liters, who presents [facility] for complaints of shortness of breath Patient presented to [facility] for acute respiratory distress secondary to diastolic CHF exacerbation, COVID-19, A. fib with RVR. Patient received inpatient diuresis, antibiotic therapy, remdesivir received 4 doses, Decadron, and rate control as inpatient and clinically monitored. Patient clinically improved,, remained afebrile, weaned down to 3 L, diuresed well, discharged back to [facility]. On discharge patient serum sodium is 126, likely secondary to diuresis, nursing was advised to hold his Lasix until Sunday, recheck BMP, if sodium has improved to greater than 130 resume Lasix 40 twice daily. Patient was discharged on prednisone, doxycycline, and on his home Eliquis. Physical Exam Const: COMMON NORMALS: no acute distress and patient oriented x3 Resp: COMMON NORMALS: normal respiratory effort, No retractions, No use of accessory muscles and clear to auscultation bilaterally AUSCULTATION: clear to auscultation bilaterally Cardio: COMMON NORMALS: regular rate, regular rhythm, S1 normal heart sound present and S2 normal heart sound present RATE: regular rate RHYTHM: regular rhythm HEART SOUNDS: S1 normal heart sound present and S2 normal heart sound present GI: COMMON NORMALS: Normal to inspection, nondistended, normoactive bowel sounds present, Soft to palpation and non-tender PALPATION: Yes Soft to palpation Extremity: COMMON NORMALS: no pedal edema Neuro: COMMON NORMALS: patient oriented x3 Psych: COMMON NORMALS: mental status grossly normal Urinary Catheter Management^: Lewis: Cath Placed During This Visit: yes Reason for Continuing Indwelling Catheter: Accurate Measurement of Urinary Output in Critically Ill Patients Urinary Catheter Date of Insertion: 04/10/21 Discharge Data Data Completed and Pending: Completed Studies During Hospitalization Category Date Time Status XR chest 1V negrito ble [id number] Routine Exams 04/12/21 07:00 Completed XR chest 1V negrito ble [id number] Stat Exams 04/09/21 15:31 Completed Pending at discharge Category Date Time Status Blood Culture AM LABS Lab 04/10/21 08:30 Results C Reactive Protei n AM LABS Lab 04/14/21 04:00 Ordered Complete Blood Co unt w/Auto AM LABS Lab 04/14/21 04:00 Ordered Comprehensive Met abolic Panel AM LA BS Lab 04/14/21 04:00 Ordered Creatine Phosphok inase AM LABS Lab 04/14/21 04:00 Ordered Magnesium AM LABS Lab 04/14/21 04:00 Ordered NT Pro B Type Nadiya riuretic Pept QAM Lab 04/14/21 06:00 Ordered Phosphorus AM LAB S Lab 04/14/21 04:00 Ordered Procalcitonin AM LABS Lab 04/14/21 04:00 Ordered Prothrombin Time INR AM LABS Lab 04/14/21 04:00 Ordered Labs from last 24 hours 04/13/21 04/13/21 04/13/21 08:43 08:43 08:43 WBC RBC Hgb Hct MCV MCH MCHC RDW Plt Count MPV Neut % (Auto) Lymph % (Auto) [place] % (Auto) Eos % (Auto) Baso % (Auto) Neut # (Auto) Lymph # (Auto) [place] # (Auto) Eos # (Auto) Baso # (Auto) Nucleated RBC % (a uto) Nucleated RBCs # PT 18.30 H INR 1.48 H Computer Education Teacher ID Sodium 126 L Potassium 5.3 H Chloride 93 L Carbon Dioxide 20 L Anion Gap 18.3 BUN 47 H Creatinine 1.2 GFR Calculation Not Reportable Glucose 306 H Calculated Osmolal ity 286 Calcium 8.1 L Phosphorus 3.5 Magnesium 1.8 Total Bilirubin 0.3 AST 35 ALT 38 Alkaline Phosphata se 151 H Creatine Kinase 43 C-Reactive Protein 3.1 NT-Pro-B Natriuret Pep 1023 H Total Protein 7.6 Albumin 2.8 L Globulin 4.8 H Procalcitonin 0.07 04/13/21 04/12/21 04/12/21 08:43 13:47 04:08 WBC 10.1 H RBC 3.37 L Hgb 11.8 Hct 35.3 L MCV 104.7 H MCH 35.0 H MCHC 33.4 RDW 14.6 Plt Count 259 MPV 10.9 H Neut % (Auto) 74.9 Lymph % (Auto) 17.8 [place] % (Auto) 6.5 Eos % (Auto) 0.0 Baso % (Auto) 0.1 Neut # (Auto) 7.56 Lymph # (Auto) 1.8 [place] # (Auto) 0.7 Eos # (Auto) 0.0 Baso # (Auto) 0.0 Nucleated RBC % (a uto) 0 Nucleated RBCs # 0.0 PT INR Computer Education Teacher ID Jh Sodium 125 L Potassium 5.0 Chloride 92 L Carbon Dioxide 21 L Anion Gap 17.0 BUN 50 H Creatinine 1.2 GFR Calculation Not Reportable Glucose 337 H Calculated Osmolal ity 287 Calcium 9.0 Phosphorus Magnesium Total Bilirubin AST ALT Alkaline Phosphata se Creatine Kinase C-Reactive Protein NT-Pro-B Natriuret Pep Total Protein Albumin Globulin Procalcitonin Vitals: Last Vital Signs Temp 98.4 F 04/12/21 00:00 Pulse 68 04/13/21 09:21 Resp 16 04/13/21 09:21 BP 129/82 04/13/21 04:44 Pulse Ox 100 04/13/21 09:21 Discharge Plan Discharge Patient Disposition: Xfer SNF Condition: Stable Prescriptions: New pantoprazole 40 mg Tablet,Delayed Release (Dr/Ec) 40 mg PO DAILY 30 Days Qty: 30 RF: 0 docusate sodium 100 mg Capsule 100 mg PO BID 30 Days Qty: 60 RF: 0 zinc gluconate 50 mg Tablet 50 mg PO DAILY 30 Days Qty: 30 RF: 0 cholecalciferol (vitamin D3) 25 mcg (1,000 unit) Tablet 2,000 unit PO DAILY 30 Days RF: 0 prednisone 20 mg tablet 20 mg PO BID 5 Days Qty: 10 RF: 0 doxycycline hyclate 100 mg tablet 100 mg PO BID 5 Days Qty: 10 RF: 0 Continued (DME) Wheel chair with oxygen clamp See Rx Instructions .Route .MEDSUPPLY Qty: 1 RF: 0 folic acid 1 mg tablet 1 mg PO DAILY 30 Days Qty: 30 RF: 5 fluticasone propion-salmeterol [Wixela Inhub] 500-50 mcg/dose Blister With Device 1 inh INHALATION BID RF: 0 lisinopril 20 mg tablet 20 mg PO QAM RF: 0 Hold Instructions: Resume on 04/11/21. albuterol sulfate [ProAir HFA] 90 mcg/actuation HFA aerosol inhaler 2 inh inhalation Q4H PRN (Reason: Shortness Of Breath) RF: 0 Eliquis 5 mg tablet 5 mg PO BID RF: 0 clopidogrel 75 mg Tablet 75 mg PO DAILY 30 Days Qty: 30 RF: 0 metoprolol tartrate 50 mg tablet 25 mg PO Q12H Qty: 60 RF: 5 diltiazem HCl [DILT-XR] 180 mg Capsule,Ext.Rel 24h Degradable 180 mg PO DAILY 30 Days Qty: 30 RF: 3 nitroglycerin 0.4 mg Tablet, Sublingual 0.4 mg sublingual Q5M PRN (Reason: Chest Pain) 30 Days Qty: 30 RF: 0 potassium chloride [Klor-Con] 20 mEq packet 20 meq PO DAILY Qty: 30 RF: 0 albuterol sulfate 2.5 mg /3 mL (0.083 %) solution for nebulization 2.5 mg inhalation Q4H PRN (Reason: Shortness Of Breath) RF: 0 tramadol 50 mg Tablet 50 mg PO Q6H PRN (Reason: Pain) RF: 0 Ativan 0.5 mg Tablet 0.25 mg PO TID PRN (Reason: Anxiety) RF: 0 Milk of Magnesia 400 mg/5 mL Suspension 30 ml PO DAILY PRN (Reason: Constipation) RF: 0 bisacodyl 10 mg Suppository 10 mg CA DAILY PRN (Reason: Constipation) RF: 0 Fleet Enema 19-7 gram/118 mL Enema 118 ml CA DAILY PRN (Reason: Constipation) RF: 0 oxycodone 5 mg Tablet 5 mg PO Q4H PRN (Reason: Pain) RF: 0 Held furosemide [Lasix] 40 mg tablet 40 mg PO BID Qty: 60 RF: 3 Hold Instructions: Resume on 04/15/21. Discharge Orders: Discharge Order (Routine); Ordered 04/13/21 Ordered By: Kristofer Powers Referrals: Dorota Wallace MD [Physician] - 1 week Discharge Diet: Cardiac Discharge Activity: Resume usual activity Patient Instructions: Opioid Safety Activity Restrictions/Additional Instructions: - Monitor for wheezing, shortness of breath, coughing so go to emergency room -Hold Lasix for 48 hours, repeat BMP, if sodium improved then resume Lasix -Monitor heart rate, monitor atrial fibrillation -Repeat creatinine in 1 week Discharge Attestations Time Spent in Discharge Care*: less than 30 min Status at Discharge: Cognitive status at discharge: cognitively intact , Behavioral status at discharge: cooperative , Quality Metrics Clinical Quality Measures During this hospital stay, did patient experience: None Coding Level of Care Code Acute Chg FW DC note Diagnoses Acute respiratory distress R06.03 COVID-19 U07.1 Heart failure with preserved ejection fraction, borderline, class III I50.30 COPD (chronic obstructive pulmonary disease) J44.1 COPD type: COPD with acute exacerbation Coronary artery disease I25.10 Coronary Disease-Associated Artery/Lesion type: [place] artery [place] vs. transplanted heart: [place] heart Associated angina: without angina Atrial fibrillation I48.91 Aortic stenosis I35.0 Cardiac valve disease etiology: nonrheumatic Chronic anticoagulation Z79.01 Macrocytosis D75.89 Hepatitis C B18.2 Viral hepatitis chronicity: chronic Hepatic coma status: without hepatic coma Hypertension I10 Hypertension type: primary hypertension Incisional hernia K43.2 Obstruction and gangrene presence: without obstruction or gangrene Right lower lobe pulmonary nodule R91.1
[2021-04-13] MEDS: dilTIAZem 30 mg Tablet PO (15:35)
--- NOTE | 2021-04-13 15:58 | PC.NURSE ---
Discharge Note Patient discharged to [facility] via stretcher accompanied by ambulance personal. Discharge instructions reviewed with patient and/or guest experience representative. Mobile pharmacy medications and/or prescriptions provided. Belongings/home medications returned.
== END 2021-04-13 15:48 | disposition skilled nursing facility (03) | DRG 177 ==
LOC: ER 18:44 → ER IP 21:58 → CSU 04-10 04:26
PROVIDERS: Family Medicine; Admitting Provider Hospitalist; Emergency Provider Emergency Medicine; Visit Provider Family Medicine
DX: U07.1 COVID-19 (principal); J12.82 Pneumonia due to coronavirus disease 2019; I50.43 Acute on chronic combined systolic (congestive) and diastolic (congestive) heart failure; J44.1 Chronic obstructive pulmonary disease with (acute) exacerbation; E87.1 Hypo-osmolality and hyponatremia; L03.116 Cellulitis of left lower limb; L03.115 Cellulitis of right lower limb; R06.03 Acute respiratory distress; I35.0 Nonrheumatic aortic (valve) stenosis; I48.91 Unspecified atrial fibrillation; M54.9 Dorsalgia, unspecified; I25.10 Atherosclerotic heart disease of native coronary artery without angina pectoris; Z98.61 Coronary angioplasty status; K21.9 Gastro-esophageal reflux disease without esophagitis; I11.0 Hypertensive heart disease with heart failure; B18.2 Chronic viral hepatitis C; G47.33 Obstructive sleep apnea (adult) (pediatric); K43.2 Incisional hernia without obstruction or gangrene; F17.290 Nicotine dependence, other tobacco product, uncomplicated; F10.21 Alcohol dependence, in remission; Z79.02 Long term (current) use of antithrombotics/antiplatelets; Z79.01 Long term (current) use of anticoagulants; Z79.51 Long term (current) use of inhaled steroids; R91.8 Other nonspecific abnormal finding of lung field; D53.9 Nutritional anemia, unspecified; Z87.440 Personal history of urinary (tract) infections
CPT/HCPCS: 36415; 36600; 51702; 71045; 80048; 80051; 80053; 81003; 82330; 82550; 82803; 82805; 83735; 83880; 84100; 84145; 84484; 85025; 85378; 85384; 85610; 86140; 87040; 87635; 93005; 94640; 96365; 96375; 99285; J0610; J1100; J1630; J1815; J1940; J2060; J2270; J2543; J2930; J3490; J7626; Q0163

== ENCOUNTER 2021-04-25 11:03 | Emergency (ER) | payer MEDICARE, MEDICAID, SELFPAY ==
[2021-04-25] VITALS (10 sets, daily range): BP systolic 90–160; BP diastolic 60–119; PULSE 71–110; RESP 14–25; TEMP 36.8; O2SAT 93–100; BMI 25.9
--- NOTE | 2021-04-25 11:16 | W.ED.GENADLT ---
HPI - General Adult General: Chief complaint: Altered Mental Status Stated complaint: AMS, HYPOTENSION Time Seen by Provider: 04/25/21 11:12 History of Present Illness: HPI narrative: 75-year-old male presents emergency room from the [facility]. In March patient had an NSTEMI at intervention and was discharged. He returned in A. fib and then was discharged to [facility]dc then returned again and was found to have COVID he was recently discharged back to the nursing he comes in today complaining of shortness of breath difficulty with breathing he is normally on 2 L by nasal cannula which he chronically keeps in his mouth. He is a large left lower quadrant abdominal wall herniation. Is difficult to get any history from today he indicates he has chest pain and abdominal pain. His oxygen sats are well maintained with 2 L by nasal cannula Onset (ago): day(s) Location: chest and abdomen Severity: mild Pain Consistency: constant Relieving factors: none Exacerbating factors: none Associated symptoms: Reports chest pain, confusion, dyspnea, malaise and weakness; Deny cough, diaphoresis, decreased appetite, fevers/chills, headache(s), nausea, rash, palpitations, seizures, short of breath, syncope or vomiting Treatments prior to arrival: none Review of Systems Const: Reports: malaise; Denies: diaphoresis Card: Reports: chest pain; Denies: palpitations or syncope Resp: Reports: dyspnea GI: Denies: nausea or vomiting Skin/Breast: Denies: rash Neuro: Reports: confusion; Denies: headache(s) PFS ED PFSH: Medical History Abdominal ascites Abnormal liver enzymes Aortic stenosis 03/18/21 mild to moderate, KERRY 1.1 cm2, mean gradient 12.7 Atrial fibrillation Back pain Chronic anticoagulation eliquis, for afib COPD (chronic obstructive pulmonary disease) Coronary artery disease GERD (gastroesophageal reflux disease) Heart failure with preserved ejection fraction, borderline, class III EF 55% 03/18/21 Hepatitis C Hypertension Incisional hernia Insomnia Lung nodule Non-compliant behavior IRVIN (obstructive sleep apnea) Periumbilical hernia Right inguinal hernia Ventral hernia left sided, large Surgical History H/O exploratory laparotomy H/O laminectomy History of cardiac catheterization (03/19/21) ostial 40-50% eccentric lesion with IFR 0.93 (not significant), distal and mid PDA lesions treated with angioplasty with reduction in lesions from 80-90% to 40-50%, no stent placed History of carpal tunnel surgery History of cholecystectomy S/P laparoscopic appendectomy Family History Father Cancer Other Hypertension Social History Smoking and tobacco status: smoker, details unknown e-cigarettes E-Cigarette Details: e-cigarette Second hand smoke exposure: Yes Alcohol intake: former Year of sobriety/quit date alcohol: 6 years ago Former alcohol use details: Heavy alcohol use Lives independently: No Household members: family and children Housing: [facility] Marital status: Number of children: 3 service: No Current occupational status: retired Current gender identity: Male Physical Exam Const: GENERAL APPEARANCE: cooperative and comfortable HENMT: COMMON NORMALS: normocephalic, atraumatic and hearing grossly normal bilaterally HEAD & SCALP: normocephalic and atraumatic Resp: COMMON NORMALS: normal respiratory effort, No retractions, No use of accessory muscles and clear to auscultation bilaterally AUSCULTATION: clear to auscultation bilaterally Cardio: COMMON NORMALS: regular rate, regular rhythm and No murmurs present (Cardio) RATE: regular rate RHYTHM: regular rhythm GI: COMMON NORMALS: Soft to palpation and No hepatosplenomegaly present AUSCULTATION: Yes normoactive bowel sounds PALPATION: Yes Soft to palpation, No Tenderness to palpation present (GI), No Guarding due to palpation present (GI) and Yes No hepatosplenomegaly present Extremity: NARRATIVE EXTREMITY EXAM: Bilateral lower extremity swelling to the level of the malleoli. The right foot dorsum of the foot is mildly reddened. The left foot is also edematous to the lateral malleolus with no evidence of redness or erythema. The left leg is mildly cool to the touch. Due to the edema unable to palpate any pulses. No skin breakdown or ulcerations at this time on either lower extremity. Course Vital Signs: Vital signs: Vital Signs Temperature 98.2 F 04/25/21 11:17 Pulse Rate 88 04/25/21 20:40 Respiratory Rate 18 04/25/21 20:40 Blood Pressure 132/78 04/25/21 20:40 Pulse Oximetry 98 04/25/21 20:40 MDM - General Adult MDM Narrative Medical decision making narrative: Labs and imaging reviewed and EKG reviewed on chart troponin remained stable. Patient is very vague about what is bothering him. Initially he was complaining of some discomfort to his right foot 1 laboratory work-up complete reevaluation patient now complaining of pain in his left leg and no pain in his right leg there is some mild redness to the right leg the left leg with ultrasound no DVT good arterial blood flow. Will discharge patient home treat for mild cellulitis in the right foot return if has further problems. Medical Records Attestation: I reviewed the patient's medical records. Lab Data Attestation: I reviewed the patient's lab results. Result diagrams: 04/25/21 12:26 04/25/21 12:26 Labs: Lab Results 04/25/21 04/25/21 04/25/21 11:34 11:55 12:26 WBC 14.5 10^3/uL H 10^3/uL (4.0-10.0) RBC 3.05 10^6/uL L 10^6/uL (4.1-5.3) Hgb 10.6 g/dL L g/dL (11.7-16.6) Hct 32.8 % L % (42.0-52.0) MCV 107.5 fl H fl (80-94) MCH 34.8 pg H pg (28.0-34.0) MCHC 32.3 g/dL g/dL (30.0-36.0) RDW 14.7 % % (12.1-15.1) Plt Count 171 10^3/cmm 10^3/cmm (130-400) MPV 10.2 fL fL (7.4-10.4) Neut % (Auto) 64.8 % % Lymph % (Auto) 19.4 % % Powell % (Auto) 14.0 % % Eos % (Auto) 0.1 % % Baso % (Auto) 0.3 % % Neut # (Auto) 9.37 10^3/uL H 10^3/uL (1.8-7.7) Lymph # (Auto) 2.8 10^3/uL 10^3/uL (0.8-4.8) Powell # (Auto) 2.0 10^3/uL H 10^3/uL (0.2-0.9) Eos # (Auto) 0.0 10^3/uL 10^3/uL (0.0-0.8) Baso # (Auto) 0.0 10^3/uL 10^3/uL (0.0-0.1) Nucleated RBC % (auto) 0 % % Nucleated RBCs # 0.0 /100WBC /100WBC Specimen Type Arterial Sample Site Brachial, right ABG pH 7.43 (7.35-7.45) ABG pCO2 42.8 mmHg mmHg (35-45) ABG pO2 118.0 mmHg H mmHg (80.0-100.0) ABG HCO3 28.1 mmol/L H mmol/L (22-26) ABG O2 Saturation 99.1 ABG Base Excess 3.3 mmol/L H mmol/L (-2.0-2.0) Yannick Test N/a A-a O2 Gradient 3.3 mmHg L mmHg (5-10) Hematocrit 32.9 % L % (42-52) Hgb O2 Saturation 96.9 % % (95-100) Carboxyhemoglobin 1.3 %THgb %THgb (0.4-20.1) Methemoglobin 1.0 % % (0.4-1.5) Total Hemoglobin 10.7 g/dL L g/dL (14-18) Sodium 134.0 mmol/L mmol/L (131-143) Potassium 4.4 mmol/L mmol/L (3.5-5.0) Glucose 116.0 mg/dL H mg/dL (70-115) Ionized Calcium 1.2 mmol/L mmol/L (1.1-1.4) O2 Delivery Device Nc O2 Liters/Min 2.0 % % FiO2 28.0 % % Lymphedema Therapist ID Ed Chloride Carbon Dioxide Anion Gap BUN Creatinine GFR Calculation Calculated Osmolality Lactic Acid Lactic Acid (Sepsis) Calcium Total Bilirubin AST ALT Alkaline Phosphatase Troponin T Baseline Troponin T 120 Minute Delta Troponin T Troponin T Hi Sens 6Hr Troponin T Hi Sens 6Hr Delta Total Protein Albumin Globulin Lipase Urine Color Yellow (Yellow) Urine Appearance Clear (CLEAR) Urine pH 5 (5-7) Ur Specific [place] 1.015 (1.005-1.030) Urine Protein 1+ H (Negative) Urine Glucose (UA) Norm (Normal) Urine Ketones Negative (Negative) Urine Blood Neg (Negative) Urine Nitrate Negative (Negative) Urine Bilirubin Neg (Negative) Urine Urobilinogen Norm mg/dL mg/dL (Negative) Ur Leukocyte Esterase Negative (Negative) Urine RBC None /hpf /hpf (0-2) Urine WBC None /hpf /hpf (0-5) Ur Squamous Epith Cells None /hpf /hpf (0-5) Amorphous Sediment Trace /hpf /hpf Urine Bacteria 1+ /hpf H /hpf (NONE) 04/25/21 04/25/21 04/25/21 12:26 12:26 12:30 WBC RBC Hgb Hct MCV MCH MCHC RDW Plt Count MPV Neut % (Auto) Lymph % (Auto) Powell % (Auto) Eos % (Auto) Baso % (Auto) Neut # (Auto) Lymph # (Auto) Powell # (Auto) Eos # (Auto) Baso # (Auto) Nucleated RBC % (auto) Nucleated RBCs # Specimen Type Sample Site ABG pH ABG pCO2 ABG pO2 ABG HCO3 ABG O2 Saturation ABG Base Excess Yannick Test A-a O2 Gradient Hematocrit Hgb O2 Saturation Carboxyhemoglobin Methemoglobin Total Hemoglobin Sodium 132 mmol/L L mmol/L (136-145) Potassium 4.9 mmol/L mmol/L (3.5-5.1) Glucose 102 mg/dL mg/dL (65-115) Ionized Calcium O2 Delivery Device O2 Liters/Min FiO2 Lymphedema Therapist ID Chloride 98 mmol/L mmol/L (98-107) Carbon Dioxide 22 mmol/L mmol/L (22-29) Anion Gap 16.9 (5-19) BUN 28 mg/dL H mg/dL (8-23) Creatinine 0.9 mg/dL mg/dL (0.7-1.2) GFR Calculation Not Reportable Calculated Osmolality 280 mOsm/kg L mOsm/kg (285-295) Lactic Acid 2.5 mmol/L H mmol/L (0.5-2.2) Lactic Acid (Sepsis) Calcium 7.8 mg/dL L mg/dL (8.5-10.5) Total Bilirubin 0.7 mg/dL mg/dL (0.15-1.2) AST 26 U/L U/L (0-40) ALT 22 U/L U/L (0-41) Alkaline Phosphatase 138 IU/L H IU/L (40-130) Troponin T Baseline 25 ng/L H ng/L (0-15) Troponin T 120 Minute Delta Troponin T Troponin T Hi Sens 6Hr Troponin T Hi Sens 6Hr Delta Total Protein 6.4 g/dL L g/dL (6.6-8.7) Albumin 2.4 g/dL L g/dL (3.5-5.2) Globulin 4.0 g/dL g/dL (1.3-4.6) Lipase 24 U/L U/L (13-60) Urine Color Urine Appearance Urine pH Ur Specific [place] Urine Protein Urine Glucose (UA) Urine Ketones Urine Blood Urine Nitrate Urine Bilirubin Urine Urobilinogen Ur Leukocyte Esterase Urine RBC Urine WBC Ur Squamous Epith Cells Amorphous Sediment Urine Bacteria 04/25/21 04/25/21 04/25/21 15:32 15:32 18:37 WBC RBC Hgb Hct MCV MCH MCHC RDW Plt Count MPV Neut % (Auto) Lymph % (Auto) Powell % (Auto) Eos % (Auto) Baso % (Auto) Neut # (Auto) Lymph # (Auto) Powell # (Auto) Eos # (Auto) Baso # (Auto) Nucleated RBC % (auto) Nucleated RBCs # Specimen Type Sample Site ABG pH ABG pCO2 ABG pO2 ABG HCO3 ABG O2 Saturation ABG Base Excess Yannick Test A-a O2 Gradient Hematocrit Hgb O2 Saturation Carboxyhemoglobin Methemoglobin Total Hemoglobin Sodium Potassium Glucose Ionized Calcium O2 Delivery Device O2 Liters/Min FiO2 Lymphedema Therapist ID Chloride Carbon Dioxide Anion Gap BUN Creatinine GFR Calculation Calculated Osmolality Lactic Acid Lactic Acid (Sepsis) 1.4 mmol/L mmol/L (0.5-2.2) Calcium Total Bilirubin AST ALT Alkaline Phosphatase Troponin T Baseline Troponin T 120 Minute 24.62 ng/L H ng/L (0-15) Delta Troponin T -0.38 ABS# L ABS# (0-10) Troponin T Hi Sens 6Hr 26.02 ng/L H ng/L (0-15) Troponin T Hi Sens 6Hr Delta 1.02 ng/L ng/L (0-12) Total Protein Albumin Globulin Lipase Urine Color Urine Appearance Urine pH Ur Specific [place] Urine Protein Urine Glucose (UA) Urine Ketones Urine Blood Urine Nitrate Urine Bilirubin Urine Urobilinogen Ur Leukocyte Esterase Urine RBC Urine WBC Ur Squamous Epith Cells Amorphous Sediment Urine Bacteria Discharge Plan Discharge Patient Disposition: Home Clinical Impression: Atypical chest pain, Heart failure with preserved ejection fraction, borderline, class III, Leg pain, left, Cellulitis and abscess of right leg Condition: Stable Prescriptions: New clindamycin HCl 300 mg capsule 300 mg PO Q6H 7 Days Qty: 28 0RF No Action (DME) Wheel chair with oxygen clamp See Rx Instructions .Route .MEDSUPPLY Qty: 1 0RF Rx Instructions: As directed folic acid 1 mg tablet 1 mg PO DAILY 30 Days Qty: 30 5RF fluticasone propion-salmeterol [Wixela Inhub] 500-50 mcg/dose Blister With Device 1 inh INHALATION BID 0RF lisinopril 20 mg tablet 20 mg PO QAM 0RF Hold Instructions: Resume on 04/04/21. albuterol sulfate [ProAir HFA] 90 mcg/actuation HFA aerosol inhaler 2 inh inhalation Q4H PRN (Reason: Shortness Of Breath) 0RF Eliquis 5 mg tablet 5 mg PO BID 0RF metoprolol tartrate 50 mg tablet 25 mg PO Q12H Qty: 60 5RF diltiazem HCl [DILT-XR] 180 mg Capsule,Ext.Rel 24h Degradable 180 mg PO DAILY 30 Days Qty: 30 3RF furosemide [Lasix] 40 mg tablet 40 mg PO BID Qty: 60 3RF Hold Instructions: Resume on 04/15/21. potassium chloride [Klor-Con] 20 mEq packet 20 meq PO DAILY Qty: 30 0RF Hold Instructions: Resume on 04/15/21. albuterol sulfate 2.5 mg /3 mL (0.083 %) solution for nebulization 2.5 mg inhalation Q4H PRN (Reason: Shortness Of Breath) 0RF tramadol 50 mg Tablet 50 mg PO Q6H PRN (Reason: Pain) 0RF Ativan 0.5 mg Tablet 0.25 mg PO TID PRN (Reason: Anxiety) 0RF Milk of Magnesia 400 mg/5 mL Suspension 30 ml PO DAILY PRN (Reason: Constipation) 0RF bisacodyl 10 mg Suppository 10 mg WV DAILY PRN (Reason: Constipation) 0RF Fleet Enema 19-7 gram/118 mL Enema 118 ml WV DAILY PRN (Reason: Constipation) 0RF oxycodone 5 mg Tablet 5 mg PO Q4H PRN (Reason: Pain) 0RF pantoprazole 40 mg Tablet,Delayed Release (Dr/Ec) 40 mg PO DAILY 30 Days Qty: 30 0RF docusate sodium 100 mg Capsule 100 mg PO BID 30 Days Qty: 60 0RF zinc gluconate 50 mg Tablet 50 mg PO DAILY 30 Days Qty: 30 0RF cholecalciferol (vitamin D3) 25 mcg (1,000 unit) Tablet 2,000 unit PO DAILY 30 Days 0RF Discharge Orders: Discharge ED (Routine); Ordered 04/25/21 Ordered By: Amol Burns Discharge Diet: Usual diet Discharge Activity: Resume usual activity Patient Instructions: Opioid Safety Coding Level of Care Code ED Fixed Income Manager for Gretel Fwmaximilian Exam Detailed
--- NOTE | 2021-04-25 11:26 | XR_ITS ---
WS: [id number] Portable AP upright chest, 04/25/2021 Clinical Data: dyspnea/cough Comparison: Portable chest, 04/12/2021 Findings: The right lower lobe nodule now overlies the right diaphragm and has not changed. There is right hilar adenopathy. The remainder of the lungs shows no change. No pneumonia or pneumothorax is p resent. The heart is slightly enlarged. The pulmonary vascularity is not increased. Monitor leads are on the chest wall. 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 XR/XR chest 1V portable [id number] Impression: 1. No change in right lower lobe nodule and right hilar adenopathy. 2. Cardiomegaly.
--- NOTE | 2021-04-25 11:26 | CT_ITS ---
WS: [id number] CT ABDOMEN AND PELVIS WITH CONTRAST HISTORY: Abdominal pain. TECHNIQUE: Imaging performed of the abdomen and pelvis with IV contrast. Single phase imaging of the abdomen. Coronal and sagittal reformats are submitted. All CT scans at [facility] use at [address] one of these dose optimization techniques: automated exposure control; mA and/or kV adjustment per patient size (includes targeted exams where dose is matched to clinical indication); or iterative re construction. IV CONTRAST: Omnipaque 300; 95 mL IV. Oral contrast: No DLP: 1620.6 mGy.cm COMPARISON: 03/29/2021 Lower thorax: Increasing size of the previously described nodules in the RIGHT lower lung field. The largest now measures 2.8 cm in transverse diameter. Otherwise chronic emphysematous changes with inte rstitial thickening and chronic lung disease. Mild enlargement of the heart. No effusion. No hiatal h ernia. Motion artifact due to breathing obscuring detail within the abdomen. Liver/biliary system: Mild central bile duct dilatation may be on the basis of cholecystectomy and ag ing. There is very significant motion artifact obscuring detail. Gallbladder: Prior cholecystectomy. Pancreas: Pancreatic duct is top normal size. No mass identified. Limited by motion artifact. Spleen: Normal size spleen. No mass or infarct. Adrenal glands: Bilateral adrenal masses. Probably representing metastatic disease. LEFT adrenal mass measures 3.4 x 2.9 cm. Both of these masses have increased in size since 03/29/2021. Right kidney: Limited by motion. Cortical hypodensities. No obstruction. Left kidney: Limited by motion. No change in the lower pole cyst. No obstruction. Aorta: Moderate atherosclerosis. Calcification at the origin of the SMA and celiac axis. Lymphadenopathy: None. Free fluid: None. GI tract: Large amount of abdominal wall hernia extends to the LEFT of midline. This hernia was previ ously described. Hernia sac contains predominantly small bowel. No obstruction. Abdominal wall: Large [place] LEFT abdominal wall hernia. The fluid described within the hernia sac on the prior study has resolved. There is no obstruction. Pelvis: No free fluid in the pelvis. Vascular calcifications. Moderate fecal retention at the rectum. Inguinal canals are patent bilaterally containing fat. Bones: RIGHT hip arthroplasty. Prior lumbar fusion at L4-5. Moderate LEFT hip osteoarthritis. CT/CT abdomen pelvis w con* [id number] IMPRESSION: 1. Increasing size RIGHT lower lobe pulmonary nodules suspicious for metastati c disease. 2. Increasing size of the mass is presented described in the adrenal glands. F avor adrenal metastasis. 3. Study is limited by motion and breathing artifact. 4. Prior cholecystectomy. 5. Large [place] LEFT paraumbilical hernia containing small bowel with no ob struction. 6. No ascites.
--- NOTE | 2021-04-25 11:27 | ECG_ITS ---
[facility] Test Date: 2021-04-25 Pat Name: Robert Torres Department: Room: Gender: Male Supervisor Accounts Receivable: : 1945 Requested By: Amol Pierre Order Number: [id number] Kan MD: Jeannie Ibarra M.D. Measurements Intervals [place] Rate: 81 P: PA: QRS: 44 QRSD: 94 T: 93 QT: 377 QTc: 438 Interpretive Statements ATRIAL FIBRILLATION NONSPECIFIC T-WAVE ABNORMALITY ABNORMAL RHYTHM ECG Compared to ECG 04/12/2021 12:37:54 T-wave abnormality now present Aberrant conduction of supraventricular beat(s) no longer present Ventricular premature complex(es) no longer present ST (T wave) deviation no longer present Electronically Signed On 04-25-2021 23:53:38 COORDINATOR OF HEALTH SERVICES by Jeannie Ibarra M.D. [id number]
[2021-04-25 11:44] LABS: ABG PCO2 42.8 mmHg (35-45); ABG PH Result 7.43 (7.35-7.45); Alveolar-Arterial Oxygen Gradi 3.3 mmHg (5-10); Arterial Blood Gas Hematocrit 32.9 % (42-52); Base Excess ABG 3.3 mmol/L (-2.0-2.0); Blood Gas Operator Identificat ED; Blood Gas Sample Site Brachial, right; Blood Gas Sample Type Arterial; Carboxyhemoglobin 1.3 %THgb (0.4-20.1); HCO3 ABG 28.1 mmol/L (22-26); HGB O2 Sat 96.9 % (95-100); Ionized Calcium Level - ABG 1.2 mmol/L (1.1-1.4); Oxygen Device NC; Oxygen Saturation ABG 99.1; Potassium Level - ABG 4.4 mmol/L (3.5-5.0); Total Hemoglobin 10.7 g/dL (14-18)
[2021-04-25] MEDS: ondansetron 2 mg/ML SDV 2 mL 4 MG IVP (12:12)
[2021-04-25 12:43] LABS: Add Urine Microscopic? YES; Bilirubin Urine Neg (Negative); Blood Urine Neg (Negative); Glucose Urine UA Norm (Normal); Ketones Urine Negative (Negative); Leukocyte Esterase Urine Negative (Negative); Nitrate Urine Negative (Negative); Protein Urine 1+ (Negative); Specific Gravity, Urine 1.015 (1.005-1.030); Urine Appearance Clear (CLEAR); Urine Color Yellow (Yellow); Urobilinogen Urine Norm (Negative); pH Urine 5 (5-7)
[2021-04-25 12:45] LABS: Add Urine Culture? No; Amorphous Sediment Urine TRACE /hpf; Bacteria Urine 1+ /hpf
[2021-04-25 12:59] LABS: Basophils % 0.3 %; Eosinophils % 0.1 %; Hematocrit 32.8 % (42.0-52.0); Hemoglobin 10.6 g/dL (11.7-16.6); Lymphocytes # 2.8 10^3/uL (0.8-4.8); Lymphocytes % 19.4 %; Mean Corpuscular HGB Conc 32.3 g/dL (30.0-36.0); Mean Corpuscular Hemoglobin 34.8 pg (28.0-34.0); Mean Corpuscular Volume 107.5 fl (80-94); Mean Platelet Volume 10.2 fL (7.4-10.4); Neutrophils # 9.37 10^3/uL (1.8-7.7); Neutrophils % 64.8 %; Nucleated Red Blood Cells % 0 %; Platelet Count 171 10^3/cmm (130-400); Red Blood Count 3.05 10^6/uL (4.1-5.3); Red Cell Distribution Width 14.7 % (12.1-15.1); White Blood Count 14.5 10^3/uL (4.0-10.0)
[2021-04-25 13:10] LABS: Lactic Sepsis W/Reflex 2.5 mmol/L (0.5-2.2)
[2021-04-25 13:13] LABS: Troponin(5th) Baseline 25 ng/L (0-15)
[2021-04-25] MEDS: iodixanol 320 mg/mL 100mL Btl IV (13:20)
--- NOTE | 2021-04-25 13:27 | ECG_ITS ---
[facility] Test Date: 2021-04-25 Pat Name: Robert Torres Department: Room: Gender: Male Contact Lens Polisher: : 1945 Requested By: Amol Pierre Order Number: [id number] Kan MD: Maggie Squires M.D. Measurements Intervals [place] Rate: 76 P: MA: QRS: 56 QRSD: 87 T: 92 QT: 368 QTc: 416 Interpretive Statements ATRIAL FIBRILLATION WITH ABERRANT CONDUCTION OR VENTRICULAR PREMATURE COMPLEXES NONSPECIFIC T-WAVE ABNORMALITY ABNORMAL RHYTHM ECG Compared to ECG 04/25/2021 11:40:06 Ventricular premature complex(es) now present Aberrant conduction of supraventricular beat(s) now present T-wave abnormality still present Electronically Signed On 04-26-2021 17:29:51 PARKING METER MECHANIC by Maggie Squires M.D. [id number]
[2021-04-25 13:35] LABS: Alanine Aminotransferase 22 U/L (0-41); Albumin Level 2.4 g/dL (3.5-5.2); Alkaline Phosphatase 138 IU/L (40-130); Anion Gap 16.9 (5-19); Aspartate Amino Transferase 26 U/L (0-40); Blood Urea Nitrogen 28 mg/dL (8-23); Calcium 7.8 mg/dL (8.5-10.5); Carbon Dioxide 22 mmol/L (22-29); Chloride 98 mmol/L (98-107); Glucose 102 mg/dL (65-115); Lipase 24 U/L (13-60); Osmolality Calculated 280 mOsm/kg (285-295); Potassium 4.9 mmol/L (3.5-5.1); Sodium 132 mmol/L (136-145); Total Bilirubin 0.7 mg/dL (0.15-1.2); Total Protein 6.4 g/dL (6.6-8.7)
[2021-04-25 14:35] LABS: Reflex Lactate Order REFLEX LACTIC ORDERD
[2021-04-25 16:15] LABS: Lactic Acid level (Lactate) 1.4 mmol/L (0.5-2.2)
[2021-04-25 16:22] LABS: Troponin 5 2HR 24.62 ng/L (0-15)
[2021-04-25 16:30] LABS: Troponin 5 2HR Delta -0.38 ABS# (0-10)
--- NOTE | 2021-04-25 17:13 | USR_ITS ---
PROCEDURE INFORMATION: Exam: US Duplex Left Lower Extremity Arteries Or Arterial Bypass Grafts Exam date and time: 04/25/2021 5:13 PM Age: 75 years old Clinical indication: Pain; Leg, lower; Left; Additional info: Cold painful leg TECHNIQUE: Imaging protocol: Left Real-time duplex scan of the arteries or arterial bypass grafts of the left lower extremity with 2-D gonzalez scale, color Doppler flow and spectral waveform analysis. Images documented and saved. COMPARISON: CT abdomen pelvis w con* [id number] 04/25/2021 12:43 PM FINDINGS: Left common femoral artery: Biphasic arterial blood flow throughout the left lower extremity arterial system suggesting a degree of stenosis. Left superficial femoral artery: See above. Left popliteal artery: See above. Left calf/foot arteries: See above. Soft tissues: Subcutaneous edema of the calf, nonspecific. Other findings: Ankle brachial indices not obtained as patient could not tolerate compression according to technologist note. US/CV arterial duplex [facility] [id number] IMPRESSION: 1. Biphasic arterial blood flow throughout the left lower extremity arterial system suggesting a degree of stenosis. 2. Subcutaneous edema of the calf, nonspecific. 3. Ankle brachial indices not obtained as patient could not tolerate compression according to technologist note.
[2021-04-25 19:14] LABS: Troponin 5 6HR 26.02 ng/L (0-15); Troponin 5 6HR Delta 1.02 ng/L (0-12)
== END 2021-04-25 20:43 | disposition home or self-care (01) ==
PROVIDERS: Emergency Provider Family Medicine
DX: R41.82 Altered mental status, unspecified (principal); R07.89 Other chest pain; M79.605 Pain in left leg; L03.115 Cellulitis of right lower limb; L02.415 Cutaneous abscess of right lower limb; I11.0 Hypertensive heart disease with heart failure; I50.30 Unspecified diastolic (congestive) heart failure; Z79.01 Long term (current) use of anticoagulants; J44.9 Chronic obstructive pulmonary disease, unspecified; I25.10 Atherosclerotic heart disease of native coronary artery without angina pectoris; Z86.19 Personal history of other infectious and parasitic diseases; F17.290 Nicotine dependence, other tobacco product, uncomplicated
CPT/HCPCS: 12345; 36600; 71045; 74177; 80051; 80053; 81001; 82330; 82805; 83605; 83690; 84484; 85025; 87040; 93005; 93926; 96374; 99284; J2405; Q9967

== ENCOUNTER 2021-05-28 19:04 | Inpatient (IN) | payer MEDICARE, MEDICAID, SELFPAY ==
[2021-05-28 19:04] VITALS: BP 85/59; PULSE 87; RESP 18; TEMP 36.3; O2SAT 94; BMI 27.4
--- NOTE | 2021-05-28 19:10 | CTR_ITS ---
PROCEDURE INFORMATION: Exam: CT Head Without Contrast Exam date and time: 05/28/2021 7:10 PM Age: 75 years old Clinical indication: Injury or trauma; Blunt trauma (contusions or hematomas); Consciousness not specified; Patient HX: Nh PT unwitnessed fall hematoma R forehead on elequis; Additional info: Fall, head injury TECHNIQUE: Imaging protocol: Computed tomography of the head without contrast. Radiation optimization: All CT scans at this facility use at least one of these dose optimization techniques: automated exposure control; mA and/or kV adjustment per patient size (includes targeted exams where dose is matched to clinical indication); or iterative reconstruction. COMPARISON: No relevant prior studies available. RADIATION DOSE METRICS: Total DLP (mGy-cm): 1938.4 FINDINGS: Brain: There is moderate cerebral atrophy. There is marked diffuse heterogeneity of the white matter attenuation, consistent with severe chronic white matter ischemic changes. Negative for intracranial hemorrhage. No midline shift of the brain. No cerebral sulcal effacement. Cerebral ventricles: No ventriculomegaly. Paranasal sinuses: Visualized sinuses are unremarkable. No fluid levels. Mastoid air cells: Visualized mastoid air cells are well aerated. Bones/joints: Unremarkable. No acute fracture. Soft tissues: Small right frontal scalp hematoma. CT/CT head wo con* [id number] IMPRESSION: Negative for acute intracranial abnormality.
--- NOTE | 2021-05-28 19:16 | CTR_ITS ---
PROCEDURE INFORMATION: Exam: CT Cervical Spine Without Contrast Exam date and time: 05/28/2021 7:16 PM Age: 75 years old Clinical indication: Injury or trauma; Blunt trauma; Patient HX: Nh PT unwitnessed fall TECHNIQUE: Imaging protocol: Computed tomography images of the cervical spine without contrast. Radiation optimization: All CT scans at this facility use at least one of these dose optimization techniques: automated exposure control; mA and/or kV adjustment per patient size (includes targeted exams where dose is matched to clinical indication); or iterative reconstruction. COMPARISON: 1. CT chest wo con [id number] 03/29/2021 6:[address] head wo con* [id number] 05/28/2021 7:23 PM RADIATION DOSE METRICS: Total DLP (mGy-cm): 687.27 FINDINGS: Vertebrae: No acute cervical spine fracture. No traumatic malalignment. Mild degenerative anterolisthesis of C7 on T1.The cervical spine demonstrates marked degenerative changes at multiple levels. Soft tissues: Unremarkable. Lymph nodes: Lymphadenopathy in the superior posterior mediastinum with enlarged lymph node measuring 2.7 cm long axis by 1.7 m short axis which is larger than comparison. Lungs: Severe emphysema. CT/CT cervical spin wo con* [id number] IMPRESSION: 1. Negative for acute cervical spine injury. 2. Increased superior mediastinal lymphadenopathy.
--- NOTE | 2021-05-28 19:24 | ECG_ITS ---
[facility] Test Date: 2021-05-28 Pat Name: Robert Torres Department: Room: Gender: Male Certified Substance Abuse Counselor: : 1945 Requested By: Pedrito Pendleton Order Number: [id number] Kan MD: Jeannie Ibarra M.D. Measurements Intervals [place] Rate: 75 P: MT: QRS: 63 QRSD: 85 T: 80 QT: 345 QTc: 388 Interpretive Statements ATRIAL FLUTTER/TACHYCARDIA ABNORMAL RHYTHM ECG Compared to ECG 04/25/2021 13:51:37 Atrial fibrillation no longer present Ventricular premature complex(es) no longer present Aberrant conduction of supraventricular beat(s) no longer present T-wave abnormality no longer present Electronically Signed On 05-29-2021 21:36:44 SURGICAL ELASTIC KNITTER HAND FRAME by Jeannie Ibarra M.D. [email or web address] [email or web address].Medical [email or web address]/store/[id number] [email or web address]
--- NOTE | 2021-05-28 19:30 | W.ED.HEATRA ---
HPI - Head Injury General: Chief complaint: Head Injury Stated complaint: fall Time Seen by Provider: 05/28/21 19:09 Source: patient and EMS History of Present Illness: 75-year-old group home patient who fell, sustaining an injury to the frontal scalp. [facility] reports an unwitnessed [facility] there. no prolonged down time. Patient has baseline confusion, we are told. Complaint: head injury Mechanism of Injury: unsure Place: other Loss of Consciousness: unsure Location of injury: frontal Severity: moderate Quality: dull Radiation: none Other Injuries: none Context: other anticoagulant use Associated symptoms: Reports confusion and syncope (most likely); Deny nausea, neck pain, visual changes or vomiting Review of Systems General: Reports: ROS unobtainable due to mental status Card: Reports: syncope (most likely) GI: Denies: nausea or vomiting Musc: Denies: neck pain Neuro: Reports: confusion PFSH ED PFSH: Medical History Abdominal ascites Abnormal liver enzymes Aortic stenosis 03/18/21 mild to moderate, KERRY 1.1 cm2, mean gradient 12.7 Atrial fibrillation Back pain Chronic anticoagulation eliquis, for afib COPD (chronic obstructive pulmonary disease) Coronary artery disease GERD (gastroesophageal reflux disease) Heart failure with preserved ejection fraction, borderline, class III EF 55% 03/18/21 Hepatitis C Hypertension Incisional hernia Insomnia Lung nodule Non-compliant behavior IRVIN (obstructive sleep apnea) Periumbilical hernia Right inguinal hernia Ventral hernia left sided, large Surgical History H/O exploratory laparotomy H/O laminectomy History of cardiac catheterization (03/19/21) ostial 40-50% eccentric lesion with IFR 0.93 (not significant), distal and mid PDA lesions treated with angioplasty with reduction in lesions from 80-90% to 40-50%, no stent placed History of carpal tunnel surgery History of cholecystectomy S/P laparoscopic appendectomy Family History Father Cancer Other Hypertension Social History Smoking and tobacco status: former smoker Quit status (tobacco): has quit using tobacco Year quit tobacco: 2019 Former quit date comment: 2.5ppd x 60 years, started age 13 Second hand smoke exposure: Yes Alcohol intake: former Year of sobriety/quit date alcohol: 6 years ago Former alcohol use details: Heavy alcohol use Lives independently: No Household members: family and children Housing: Assisted Marital status: Number of children: 3 service: No Current occupational status: retired Current gender identity: Male Physical Exam Const: GENERAL APPEARANCE: cooperative and frail appearing NUTRITIONAL APPEARANCE: thin ORIENTATION/CONSCIOUSNESS: Yes awake and Yes oriented to person HENMT: COMMON NORMALS: Normal external nose present HEAD IMAGES: 1. hematoma forehead FACE & SINUS: face symmetric; no laceration NOSE: Normal external nose present and Normal nares present Eye: COMMON NORMALS: Equal, round and reactive pupils present and EOMs intact bilaterally PUPIL: Yes Equal, round and reactive pupils present Neck/C-Spine: GENERAL: No tender Chest: COMMONS NORMALS: normal inspection of the chest Resp: COMMON NORMALS: No retractions and clear to auscultation bilaterally EFFORT & INSPECTION: Yes uses accessory muscles AUSCULTATION: clear to auscultation bilaterally Cardio: RHYTHM: abnormal rhythm irregularly irregular GI: COMMON NORMALS: Soft to palpation and non-tender PALPATION: Yes Soft to palpation Neuro: INOCENCIA COMA SCALE: document GCS findings Inocencia coma scale eye opening: Spontaneous Inocencia coma scale verbal response: Confused Inocencia coma scale motor response: Obey commands Inocencia coma scale total score: 14 SENSORIUM/ORIENTATION: Yes oriented to person Course Consultations: Consultation #1: tata Vital Signs: Vital signs: Vital Signs Temperature 97.3 F L 05/28/21 19:04 Pulse Rate 87 05/28/21 19:04 Respiratory Rate 18 05/28/21 19:04 Blood Pressure 85/59 05/28/21 19:04 Pulse Oximetry 94 05/28/21 19:04 MDM - Head Injury Medcial Decision Making Patient with a history of a lung mass. Actually had a PET scan earlier today. Syncope is likely a group home. The patient does not remember the event. Forehead contusion is present, no intracranial hemorrhage despite being anticoagulated. His creatinine however is 1.6 up from his baseline. His white blood cell count is 19.4. His sodium is 126, he does have a history of hyponatremia although usually not this low. His first troponin is mildly elevated. Second is pending. No acute ST changes with his atrial flutter found on EKG. he will be admitted for acute kidney injury hypotension and hyponatremia. His initial blood pressure was 85/56. Lab Data : 05/28/21 19:17 05/28/21 19:[address] 05/28/21 19:10 IMPRESSION: Negative for acute intracranial abnormality. Cervical Spine CT 05/28/21 19:16 IMPRESSION: 1. Negative for acute cervical spine injury. 2. Increased superior mediastinal lymphadenopathy. Laboratory Results WBC 19.4 10^3/uL (4.0-10.0) H 05/28/21 19:17 RBC 3.64 10^6/uL (4.1-5.3) L 05/28/21 19:17 Hgb 12.0 g/dL (11.7-16.6) 05/28/21 19:17 Hct 37.2 % (42.0-52.0) L 05/28/21 19:17 MCV 102.2 fl (80-94) H 05/28/21 19:17 MCH 33.0 pg (28.0-34.0) 05/28/21 19:17 MCHC 32.3 g/dL (30.0-36.0) 05/28/21 19:17 RDW 14.6 % (12.1-15.1) 05/28/21 19:17 Plt Count 238 10^3/cmm (130-400) 05/28/21 19:17 MPV 10.1 fL (7.4-10.4) 05/28/21 19:17 Neut % (Auto) 71.9 % 05/28/21 19:17 Lymph % (Auto) 15.7 % 05/28/21 19:17 Glenn % (Auto) 8.6 % 05/28/21 19:17 Eos % (Auto) 0.5 % 05/28/21 19:17 Baso % (Auto) 0.4 % 05/28/21 19:17 Neut # (Auto) 13.91 10^3/uL (1.8-7.7) H 05/28/21 19:17 Lymph # (Auto) 3.0 10^3/uL (0.8-4.8) 05/28/21 19:17 Glenn # (Auto) 1.7 10^3/uL (0.2-0.9) H 05/28/21 19:17 Eos # (Auto) 0.1 10^3/uL (0.0-0.8) 05/28/21 19:17 Baso # (Auto) 0.1 10^3/uL (0.0-0.1) 05/28/21 19:17 Nucleated RBC % (auto) 0 % 05/28/21 19:17 Nucleated RBCs # 0.0 /100WBC 05/28/21 19:17 PT 20.70 SECONDS (12.1-14.9) H 05/28/21 19:17 INR 1.74 (0.8-1.2) H 05/28/21 19:17 APTT 38.9 SECONDS (23.9-36.7) H 05/28/21 19:17 Sodium 126 mmol/L (136-145) L 05/28/21 19:17 Potassium 5.0 mmol/L (3.5-5.1) 05/28/21 19:17 Chloride 92 mmol/L (98-107) L 05/28/21 19:17 Carbon Dioxide 24 mmol/L (22-29) 05/28/21 19:17 Anion Gap 15.0 (5-19) 05/28/21 19:17 BUN 42 mg/dL (8-23) H 05/28/21 19:17 Creatinine 1.6 mg/dL (0.7-1.2) H 05/28/21 19:17 GFR Calculation Not Reportable 05/28/21 19:17 Glucose 128 mg/dL (65-115) H 05/28/21 19:17 Calculated Osmolality 274 mOsm/kg (285-295) L 05/28/21 19:17 Calcium 8.5 mg/dL (8.5-10.5) 05/28/21 19:17 Total Bilirubin 0.5 mg/dL (0.15-1.2) 05/28/21 19:17 AST 82 U/L (0-40) H 05/28/21 19:17 ALT 44 U/L (0-41) H 05/28/21 19:17 Alkaline Phosphatase 137 IU/L (40-130) H 05/28/21 19:17 Troponin T Baseline 47 ng/L (0-15) H 05/28/21 19:17 Troponin T 120 Minute 42.45 ng/L (0-15) H 05/28/21 21:30 Delta Troponin T -4.55 ABS# (0-10) L 05/28/21 21:30 Total Protein 7.9 g/dL (6.6-8.7) 05/28/21 19:17 Albumin 2.5 g/dL (3.5-5.2) L 05/28/21 19:17 Globulin 5.4 g/dL (1.3-4.6) H 05/28/21 19:17 Discharge Plan Discharge Patient Disposition: Admitted As Inpatient Admit Provider: Debra Mattson Clinical Impression: Atrial fibrillation, Syncope, Acute hyponatremia, Acute kidney injury Condition: Fair Coding Level of Care Code ED Finisher Hand for Andresg Fwd Exam Comprehensive
[2021-05-28] MEDS: sodium chloride 0.9% 500 ML 999 ML IV (19:35)
[2021-05-28 19:36] LABS: Basophils # 0.1 10^3/uL (0.0-0.1); Basophils % 0.4 %; Eosinophils # 0.1 10^3/uL (0.0-0.8); Eosinophils % 0.5 %; Hematocrit 37.2 % (42.0-52.0); Lymphocytes % 15.7 %; Mean Corpuscular HGB Conc 32.3 g/dL (30.0-36.0); Mean Corpuscular Volume 102.2 fl (80-94); Mean Platelet Volume 10.1 fL (7.4-10.4); Monocytes # 1.7 10^3/uL (0.2-0.9); Monocytes % 8.6 %; Neutrophils # 13.91 10^3/uL (1.8-7.7); Neutrophils % 71.9 %; Nucleated Red Blood Cells % 0 %; Platelet Count 238 10^3/cmm (130-400); Red Blood Count 3.64 10^6/uL (4.1-5.3); Red Cell Distribution Width 14.6 % (12.1-15.1); White Blood Count 19.4 10^3/uL (4.0-10.0)
[2021-05-28 19:45] LABS: INR 1.74 (0.8-1.2)
[2021-05-28 19:46] LABS: Partial Thromboplastin Time 38.9 SECONDS (23.9-36.7)
[2021-05-28 19:52] LABS: Troponin(5th) Baseline 47 ng/L (0-15)
[2021-05-28 19:53] LABS: Alanine Aminotransferase 44 U/L (0-41); Albumin Level 2.5 g/dL (3.5-5.2); Alkaline Phosphatase 137 IU/L (40-130); Aspartate Amino Transferase 82 U/L (0-40); Blood Urea Nitrogen 42 mg/dL (8-23); Calcium 8.5 mg/dL (8.5-10.5); Carbon Dioxide 24 mmol/L (22-29); Chloride 92 mmol/L (98-107); Globulin 5.4 g/dL (1.3-4.6); Glucose 128 mg/dL (65-115); Osmolality Calculated 274 mOsm/kg (285-295); Sodium 126 mmol/L (136-145); Total Bilirubin 0.5 mg/dL (0.15-1.2); Total Protein 7.9 g/dL (6.6-8.7)
--- NOTE | 2021-05-28 20:55 | XRR_ITS ---
PROCEDURE INFORMATION: Exam: XR Chest Exam date and time: 05/28/2021 8:55 PM Age: 75 years old Clinical indication: Cough; Additional info: Fall TECHNIQUE: Imaging protocol: XR of the chest. Views: 1 view. COMPARISON: CR XR chest 1V portable [id number] 04/25/2021 11:54 AM FINDINGS: Lungs: Mild emphysematous lung changes. A rounded pulmonary lesion is suspected in the right lower lobe. No focal airspace consolidation. Pleural spaces: Unremarkable. No pleural effusion. No pneumothorax. Heart/Mediastinum: Unremarkable. No cardiomegaly. Bones/joints: Unremarkable. XR/XR chest 1V [id number] IMPRESSION: 1. Large right lung base pulmonary nodules suspicious for malignancy. 2. No focal acute pulmonary disease.
--- NOTE | 2021-05-28 21:24 | ECG_ITS ---
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 Measurements Intervals [place] Rate: 79 P: IN: QRS: 46 QRSD: 97 T: 88 QT: 369 QTc: 425 Interpretive Statements ATRIAL FLUTTER/fibrillation ABNORMAL RHYTHM ECG Compared to ECG 05/28/2021 19:14:41 No significant changes Electronically Signed On 05-30-2021 17:10:18 PAN SHOVER by Jeannie Ibarra M.D. [email or web address] Group/store/OM/[id number]
--- NOTE | 2021-05-28 21:47 | P.HP_ITS ---
Providers/Chief Complaint Chief Complaint: fall History of Present Illness 75-year-old with a past medical history significant for atrial fibrillation, coronary artery disease status post PTCA, COPD on 3 L of O2 via nasal cannula, hypertension, chronic diastolic heart failure and COVID-19 on April 2021 was presented to the hospital after he sustained a fall.Patient was not able to pro vide much history. Baseline mental status is unclear. Apparently per alf staff he had fallen and hit his head. reportedly did not have any loss of consciousness. Upon arrival to ER his laboratory workup showed a WBC 17.2, hemoglobin 11.2, hematocrit 34.8 and a platelet count of 165. Sodium 126, potassium 5.0, chloride 92, bicarb 24, BUN 42 and creatinine of 1.6. Troponin T delta -4.55. Urinalysis normal.Chest x-ray obtained showed large right lung base pulmonary nodule suspicious for malignancy without any evidence of acute pulmonary disease. Head CT and cervical spinal CT did not show any evidence of acute fracture. Patient was given a L bolus of IV fluids and admitted to the hospital. Review of Systems General: Reports: ROS unobtainable due to mental status Medications/Allergies Home Medications Medication Instructions Recorded Confirmed Last Taken Type Wheel chair with oxygen clamp #1 ea 07/01/20 05/11/21 Unknown Rx folic acid 1 mg tablet 1 mg PO DAILY 30 Days #30 tab 07/01/20 05/29/21 Unknown Rx albuterol sulfate 90 mcg/actuation 2 inh INHALATION Q4H PRN 03/17/21 05/29/21 Unknown History aerosol inhaler (ProAir HFA) apixaban 5 mg tablet (Eliquis) 5 mg PO BID 03/17/21 05/29/21 Unknown History fluticasone 500 mcg-salmeterol 50 1 inh INHALATION BID 03/17/21 05/29/21 Unknown History mcg/dose blistr powdr for inhalation (Wixela Inhub) lisinopril 20 mg tablet 20 mg PO QAM 03/17/21 05/29/21 Unknown History diltiazem HCl 180 mg 180 mg PO DAILY 30 Days #30 cap 03/24/21 05/29/21 Unknown Rx capsule,extended release 24 hr, controlled (DILT-XR) metoprolol tartrate 50 mg tablet 25 mg PO Q12H #60 tab 03/24/21 05/29/21 Unknown Rx furosemide 40 mg tablet (Lasix) 40 mg PO BID #60 tab 04/04/21 05/29/21 Unknown Rx potassium chloride 20 mEq oral 20 meq PO DAILY #30 ea 04/04/21 05/11/21 Unknown Rx packet (Klor-Con) albuterol sulfate 2.5 mg INHALATION Q4H PRN 04/09/21 05/29/21 Unknown History bisacodyl 10 mg rectal suppository 10 mg MT DAILY PRN 04/09/21 05/29/21 Unknown History lorazepam 0.5 mg tablet (Ativan) 0.25 mg PO TID PRN 04/09/21 05/29/21 Unknown History magnesium hydroxide 400 mg/5 mL 30 ml PO DAILY PRN 04/09/21 05/29/21 Unknown History oral suspension (Milk of Magnesia) oxycodone 5 mg tablet 5 mg PO Q4H PRN 04/09/21 05/29/21 Unknown History sodium phosphates 19 gram-7 118 ml MT DAILY PRN 04/09/21 05/29/21 Unknown History gram/118 mL enema (Fleet Enema) tramadol 50 mg tablet 50 mg PO Q6H PRN 04/09/21 05/29/21 Unknown History albuterol sulfate 0.83 mg CONTINUOUS NEBULIZATION 05/29/21 05/29/21 Unknown History Q4-5H PRN cholecalciferol (vitamin D3) 50 50 mcg PO DAILY 05/29/21 05/29/21 Unknown History mcg (2,000 unit) tablet (Vitamin D3) clopidogrel 75 mg tablet (Plavix) 75 mg PO DAILY 05/29/21 05/29/21 Unknown History docusate sodium 100 mg capsule 100 mg PO BID 05/29/21 05/29/21 Unknown History nitroglycerin 0.4 mg sublingual 0.4 mg SUBLINGUAL Q5M 05/29/21 05/29/21 Unknown History tablet pantoprazole 40 mg tablet,delayed 40 mg PO DAILY 05/29/21 05/29/21 Unknown History release (Protonix) trazodone 100 mg tablet 100 mg PO BEDTIME 05/29/21 05/29/21 Unknown History zinc 50 mg tablet 50 mg PO DAILY 05/29/21 05/29/21 Unknown History Allergies Allergy/AdvReac Type Severity Reaction Status Date / Time methadone Allergy Intermediate [place] Verified 05/11/21 11:43 PFSH Acute PFSH: Medical History Abdominal ascites Abnormal liver enzymes Aortic stenosis 03/18/21 mild to moderate, KERRY 1.1 cm2, mean gradient 12.7 Atrial fibrillation Back pain Chronic anticoagulation eliquis, for afib COPD (chronic obstructive pulmonary disease) Coronary artery disease GERD (gastroesophageal reflux disease) Heart failure with preserved ejection fraction, borderline, class III EF 55% 03/18/21 Hepatitis C Hypertension Incisional hernia Insomnia Lung nodule Non-compliant behavior IRVIN (obstructive sleep apnea) Periumbilical hernia Right inguinal hernia Ventral hernia left sided, large Surgical History H/O exploratory laparotomy H/O laminectomy History of cardiac catheterization (03/19/21) ostial 40-50% eccentric lesion with IFR 0.93 (not significant), distal and mid PDA lesions treated with angioplasty with reduction in lesions from 80- 90% to 40-50%, no stent placed History of carpal tunnel surgery History of cholecystectomy S/P laparoscopic appendectomy Family History Father Cancer Other Hypertension Social History Smoking and tobacco status: former smoker Quit status (tobacco): has quit using tobacco Year quit tobacco: 2019 Former quit date comment: 2.5ppd x 60 years, started age 13 Second hand smoke exposure: Yes Alcohol intake: former Year of sobriety/quit date alcohol: 6 years ago Former alcohol use details: Heavy alcohol use Lives independently: No Household members: family and children Housing: Residential Marital status: Number of children: 3 service: No Current occupational status: retired Current gender identity: Male Vitals/I&O/Wt Last Vital Signs Temp 97.3 F L 05/28/21 19:04 Pulse 87 05/28/21 19:04 Resp 18 05/28/21 19:04 BP 85/59 05/28/21 19:04 Pulse Ox 94 05/28/21 19:04 05/28/21 05/28/21 05/28/21 06:59 14:59 22:59 Intake Total 500 / 500 Balance 500 / 500 Weight last 48 hrs Weight 84.368 kg Physical Exam Narrative: General-Drowsy however arousable HEENT- frontal superficial like CVS- regular rate rhythm Chest -nonlabored respiration Abdomen -nondistended Extremities- bilateral lower extremity edema Data : 05/29/21 02:10 05/29/21 02:10 A&P Assessment and plan (1) Fall: Status: Acute (2) Acute kidney injury: Status: Acute (3) Acute hyponatremia: Status: Acute (4) Hypertension: Status: Chronic Qualifiers: Hypertension type: primary hypertension Qualified Code(s): I10 - Essential (primary) hypertension (5) COPD (chronic obstructive pulmonary disease): Status: Chronic Qualifiers: COPD type: COPD with acute exacerbation Qualified Code(s): J44.1 - Chronic obstructive pulmonary disease with (acute) exacerbation (6) Atrial fibrillation: Status: Chronic (7) Coronary artery disease: Status: Chronic Qualifiers: Coronary Disease-Associated Artery/Lesion type: [place] artery [place] vs. transplanted heart: [place] heart Associated angina: without angina Qualified Code(s): I25.10 - Atherosclerotic heart disease of [place] coronary artery without angina pectoris (8) Chronic anticoagulation: Status: Acute Plan Fall Superficial frontal lac. Local wound care PT/OT consult Etiology unclear Will obtain ECHO Monitor on tele Bedside swallow CT head CTA H&N negative Leukocytosis No obvious infectious process Possibly reactive Pro-esthela in am Afebrile Repeat CBC in am Monitor off antibiotics for now Acute kidney injury Likely pre-renal Creatinine 1.6 Holding diuretics Repeat BMP in am Cautious IVF hydration Lewis placed in ER RLL Pulmonary nodule - Large Following pulmonary outpatient Additional Medical Problems Chronic hypoxemic respiratory failure COPD Congestive heart failure Hypertension Atrial Fibrillation CAD s/p hx of PCI/Stent Hx COVID-19 04/2021 * Verify home meds and resume in am Attestations Medical Necessity Statement*: Anticipate over 2 midnights stay in hospital for evaluation treatment Time Spent in Patient Care: Greater than 35 minutes (>than 50% of time spent in counselling and/or direct pt care on unit) . Coding Level of Care Code Acute Human Projectile for Chg Fwd Diagnoses Fall W19.XXXA Acute kidney injury N17.9 Acute hyponatremia E87.1 Hypertension I10 Hypertension type: primary hypertension COPD (chronic obstructive pulmonary disease) J44.1 COPD type: COPD with acute exacerbation Atrial fibrillation I48.91 Coronary artery disease I25.10 Coronary Disease-Associated Artery/Lesion type: [place] artery [place] vs. transplanted heart: [place] heart Associated angina: without angina Chronic anticoagulation Z79.01
[2021-05-28 22:10] LABS: Troponin 5 2HR 42.45 ng/L (0-15)
[2021-05-28 22:12] LABS: Troponin 5 2HR Delta -4.55 ABS# (0-10)
[2021-05-28 22:14] LABS: Add Urine Microscopic? NO; Charge for UA Resulting for Rev
[2021-05-28 22:15] LABS: Bilirubin Urine Neg (Negative); Blood Urine Neg (Negative); Glucose Urine UA Norm (Normal); Ketones Urine Negative (Negative); Leukocyte Esterase Urine Negative (Negative); Nitrate Urine Negative (Negative); Protein Urine Neg (Negative); Urine Appearance Clear (CLEAR); Urine Color Yellow (Yellow); Urobilinogen Urine Norm (Negative); pH Urine 5 (5-7)
[2021-05-28 22:38] VITALS: BP 144/82; PULSE 98; RESP 18; TEMP 36.8; O2SAT 96
[2021-05-28] MEDS: sodium chloride 0.9% 1,000 ML 75 ML IV (23:38)
[2021-05-28 23:50] VITALS: BP 104/72; PULSE 83; RESP 16; TEMP 36.6; O2SAT 99
[2021-05-28] MEDS: HYDROcodone-acetaminophen 5-325 mg Tablet 1 TAB PO (23:54)
[2021-05-29] VITALS (43 sets, daily range): BP systolic 97–152; BP diastolic 63–106; PULSE 76–164; RESP 8–22; TEMP 36.6–36.9; O2SAT 88–98
--- NOTE | 2021-05-29 01:20 | PC.NURSE ---
05/28/21 [id number] Skin assessment: BLE redness/edema present/ sores/scabs present bilateral shins. 3+ weeping edema. Feet redness present. Abrasions right forehead. Redness to coccyx area.
--- NOTE | 2021-05-29 01:24 | ECG_ITS ---
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 Measurements Intervals [place] Rate: 90 P: [place]: QRS: 31 QRSD: 97 T: 87 QT: 355 QTc: 435 Interpretive Statements ATRIAL FIBRILLATION LOW QRS VOLTAGE [QRS DEFLECTION < 0.5/1.0 mV IN LIMB/CHEST LEADS] Compared to ECG 05/28/2021 21:25:09 Low QRS voltage now present Atrial flutter no longer present Electronically Signed On 05-30-2021 17:14:39 INSURANCE CLAIMS SUPERVISOR by Jeannie Ibarra M.D. [id number]
[2021-05-29 02:41] LABS: Basophils # 0.1 10^3/uL (0.0-0.1); Basophils % 0.4 %; Eosinophils # 0.1 10^3/uL (0.0-0.8); Eosinophils % 0.6 %; Hematocrit 34.8 % (42.0-52.0); Hemoglobin 11.2 g/dL (11.7-16.6); Lymphocytes # 2.8 10^3/uL (0.8-4.8); Lymphocytes % 16.5 %; Mean Corpuscular HGB Conc 32.2 g/dL (30.0-36.0); Mean Corpuscular Hemoglobin 34.1 pg (28.0-34.0); Mean Corpuscular Volume 106.1 fl (80-94); Mean Platelet Volume 10.1 fL (7.4-10.4); Monocytes # 1.7 10^3/uL (0.2-0.9); Neutrophils # 12.15 10^3/uL (1.8-7.7); Neutrophils % 70.7 %; Nucleated Red Blood Cells % 0 %; Platelet Count 165 10^3/cmm (130-400); Red Blood Count 3.28 10^6/uL (4.1-5.3); Red Cell Distribution Width 14.8 % (12.1-15.1); White Blood Count 17.2 10^3/uL (4.0-10.0)
[2021-05-29 03:07] LABS: Troponin 5 6HR 39.52 ng/L (0-15)
[2021-05-29 03:09] LABS: Alanine Aminotransferase 39 U/L (0-41); Albumin Level 2.1 g/dL (3.5-5.2); Alkaline Phosphatase 125 IU/L (40-130); Blood Urea Nitrogen 41 mg/dL (8-23); Calcium 8.3 mg/dL (8.5-10.5); Carbon Dioxide 23 mmol/L (22-29); Chloride 95 mmol/L (98-107); Globulin 4.8 g/dL (1.3-4.6); Glucose 98 mg/dL (65-115); Osmolality Calculated 276 mOsm/kg (285-295); Sodium 128 mmol/L (136-145); Total Bilirubin 0.4 mg/dL (0.15-1.2); Total Protein 6.9 g/dL (6.6-8.7)
[2021-05-29 03:12] LABS: Creatinine Clr Calc Pharmacy 53.7076; Troponin 5 6HR Delta -7.48 ng/L (0-12)
[2021-05-29 03:13] LABS: Anion Gap 14.9 (5-19); Aspartate Amino Transferase 74 U/L (0-40); Potassium 4.9 mmol/L (3.5-5.1)
[2021-05-29] MEDS: pantoprazole DR 40 mg Tablet PO (09:23)
--- NOTE | 2021-05-29 12:01 | PC.OT ---
OT orders received. OT discussed patient with RN who reports he is significantly confused at this time with poor ability to follow directions. Will hold at this time due to patient's decreased compliance. Angel Juan, OTR/L
--- NOTE | 2021-05-29 12:47 | P.PN_ITS ---
Subjective Subjective: Patient was seen this morning, he is alert to person, to place, not to time, he recognizes me during my last hospitalizations, he does report shortness of breath, bilateral from edema, I asked him how he fell he tells that he was bending forward and he lost his balance and fell headfirst, denies any preceding chest pain or palpitations, according to nursing staff he still has episodes of confusion, but is redirectable, no episodes of agitation, rates afebrile, normotensive, on 2 L Vitals/I&O/Wt Last Vital Signs Temp 97.9 F 05/29/21 04:00 Pulse 76 05/29/21 08:28 Resp 14 05/29/21 07:52 BP 142/89 05/29/21 07:52 Pulse Ox 96 05/29/21 08:28 05/28/21 05/29/21 05/29/21 22:59 06:59 14:59 Intake Total 500 / 500 Output Total 650 / 650 Balance 500 / 500 -650 / -150 Weight last 48 hrs Weight 84.368 kg Physical Exam Const: COMMON NORMALS: no acute distress EXAM LIMITATIONS: altered mental status ORIENTATION/CONSCIOUSNESS: Yes awake, Yes oriented to person and Yes oriented to place; not oriented to time Resp: COMMON NORMALS: normal respiratory effort, No retractions, No use of accessory muscles and clear to auscultation bilaterally AUSCULTATION: clear to auscultation bilaterally Cardio: COMMON NORMALS: regular rate, regular rhythm, S1 normal heart sound present and S2 normal heart sound present RATE: regular rate RHYTHM: regular rhythm HEART SOUNDS: S1 normal heart sound present and S2 normal heart sound present GI: COMMON NORMALS: Normal to inspection, nondistended, normoactive bowel sounds present, Soft to palpation, non-tender, No hepatosplenomegaly present and no bruits PALPATION: Yes Soft to palpation and Yes No hepatosplenomegaly present Extremity: COMMON NORMALS: no pedal edema Neuro: SENSORIUM/ORIENTATION: Yes oriented to person, Yes oriented to place and No oriented to time Urinary Catheter Management: Lewis: Cath Placed During This Visit: yes Reason for Continuing Indwelling Catheter: Other Urinary Catheter Date of Insertion: 05/28/21 Urinary Catheter Time of Insertion: 21:56 Data : 05/29/21 02:10 05/29/21 02:10 A&P Assessment and plan (1) Fall: Status: Acute (2) Acute kidney injury: Status: Acute (3) Acute hyponatremia: Status: Acute (4) Hypertension: Status: Chronic Qualifiers: Hypertension type: primary hypertension Qualified Code(s): I10 - Essential (primary) hypertension (5) COPD (chronic obstructive pulmonary disease): Status: Chronic Qualifiers: COPD type: COPD with acute exacerbation Qualified Code(s): J44.1 - Chronic obstructive pulmonary disease with (acute) exacerbation (6) Atrial fibrillation: Status: Chronic (7) Coronary artery disease: Status: Chronic Qualifiers: Coronary Disease-Associated Artery/Lesion type: [place] artery [place] vs. transplanted heart: [place] heart Associated angina: without angina Qualified Code(s): I25.10 - Atherosclerotic heart disease of [place] coronary artery without angina pectoris (8) Chronic anticoagulation: Status: Acute Plan Fall -Chest x-ray no focal pneumonia, UA no UTI Superficial frontal lac. Local wound care PT/OT consult Etiology unclear, however patient tells me it is because he was bending forward and felt lightheaded, then fell to the floor, denies passing out Will obtain ECHO Monitor on tele Bedside swallow CT head CTA H&N negative Continue to monitor Leukocytosis No obvious infectious process Possibly reactive Zosyn for possible aspiration Afebrile Repeat CBC in am Acute kidney injury Likely pre-renal Creatinine 1.3 Repeat BMP in am Lewis placed in ER RLL Pulmonary nodule - Large Following pulmonary outpatient Chronic hypoxemic respiratory failure -History of COVID-19 pneumonia, right-sided heart failure, COPD History of CAD status post recent PTCA -On Plavix, statin, Eliquis resumed -Baseline troponin 47, 6-hour 39.52, delta -7.48 History of atrial fibrillation, resume home meds [place] COPD Congestive heart failure Left or right-sided heart failure Chronic hyponatremia, secondary to underlying lung malignancy, heart failure History of bilateral extremity cellulitis, open excoriations, currently do not look cellulitic Hypertension Possible aspiration, continue Zosyn * Verify home meds and resume in am Attestations Medical Necessity Statement*: Patient requires hospitalization for altered mental status Coding Level of Care Code Acute Cfo Controller for josef Schwartz Diagnoses Fall W19.XXXA Acute kidney injury N17.9 Acute hyponatremia E87.1 Hypertension I10 Hypertension type: primary hypertension COPD (chronic obstructive pulmonary disease) J44.1 COPD type: COPD with acute exacerbation Atrial fibrillation I48.91 Coronary artery disease I25.10 Coronary Disease-Associated Artery/Lesion type: [place] artery [place] vs. transplanted heart: [place] heart Associated angina: without angina Chronic anticoagulation Z79.01
[2021-05-29] MEDS: midodrine 5 mg TABLET 10 MG PO ×2 (14:41→19:50)
[2021-05-29] MEDS: piperacillin-tazobactam 3.375 GM in sodium chloride 0.9% (plus) 50 ML IV ×2 (15:03→19:50)
[2021-05-29] MEDS: dilTIAZem 60 mg Tablet PO ×2 (16:18→21:43)
--- NOTE | 2021-05-29 17:20 | PC.NURSE ---
Around 1530: Patient in afib sustaining in 110s to 170s. Notified Dr. Powers, Hospitalist. Multiple orders received, see MAY.
[2021-05-29] MEDS: FUROsemide 10 mg/mL SDV 4mL 40 MG IVP (17:35)
[2021-05-29] MEDS: apixaban 5 mg Tablet PO (17:36)
[2021-05-29] MEDS: docusate sodium 100 mg Capsule PO (17:37)
[2021-05-29] MEDS: metoprolol succinate ER (24 HR) 25 mg Tablet 12.5 MG PO (17:42)
[2021-05-29 18:51] LABS: Magnesium 1.9 mg/dL (1.7-2.3)
[2021-05-29] MEDS: trazodone 100 mg Tablet PO (19:50)
[2021-05-29] MEDS: HYDROcodone-acetaminophen 5-325 mg Tablet 1 TAB PO (21:43)
[2021-05-30] VITALS (13 sets, daily range): BP systolic 102–156; BP diastolic 54–98; PULSE 72–110; RESP 12–25; TEMP 36.4–36.7; O2SAT 93–100
[2021-05-30] MEDS: dilTIAZem 60 mg Tablet PO ×4 (05:00→22:35)
[2021-05-30] MEDS: midodrine 5 mg TABLET 10 MG PO ×3 (05:00→22:35)
[2021-05-30] MEDS: piperacillin-tazobactam 3.375 GM in sodium chloride 0.9% (plus) 50 ML IV ×3 (05:00→22:33)
[2021-05-30] MEDS: docusate sodium 100 mg Capsule PO (08:44)
[2021-05-30] MEDS: cholecalciferol (vitamin D3) 1,000 unit Tablet 2000 UNIT PO (08:44)
[2021-05-30] MEDS: zinc gluconate 50 mg Tablet PO (08:44)
[2021-05-30] MEDS: apixaban 5 mg Tablet PO ×2 (08:45→18:49)
[2021-05-30] MEDS: metoprolol succinate ER (24 HR) 25 mg Tablet 12.5 MG PO ×2 (08:45→18:49)
[2021-05-30] MEDS: folic acid 1 mg Tablet PO (08:45)
[2021-05-30] MEDS: pantoprazole DR 40 mg Tablet PO (08:46)
[2021-05-30] MEDS: clopidogrel 75 mg Tablet PO (08:46)
[2021-05-30] MEDS: HYDROcodone-acetaminophen 5-325 mg Tablet 1 TAB PO ×2 (08:52→22:34)
[2021-05-30] MEDS: LORazepam 0.5 mg Tablet 0.25 MG PO (08:53)
[2021-05-30] MEDS: FUROsemide 10 mg/mL SDV 4mL 40 MG IVP ×2 (12:32→22:34)
--- NOTE | 2021-05-30 14:22 | USCV_ITS ---
Robert Torres Age: 75 Gender: M : 1945 Exam Date: 05/30/2021 15:47 Ordering Phys: Pola Valerio MD Technologist: CASSANDRA Exam Location: [facility] [place] Indication: Atrial fibrillation with rapid response BP: 141 / 81 HR: 103 Rhythm: Sinus Technical Quality: Technically difficult study MEASUREMENTS (Male / Female) Normal Values 2D ECHO LV Diastolic Diameter PLAX 3.7 cm 4.2 - 5.9 / 3.9 - 5.3 cm LV Systolic Diameter PLAX 2.9 cm IVS Diastolic Thickness 1.3 cm 0.6 - 1.0 / 0.6 - 0.9 cm IVS Systolic Thickness 1.2 cm LVPW Diastolic Thickness 1.3 cm 0.6 - 1.0 / 0.6 - 0.9 cm LVPW Systolic Thickness 1.5 cm LVOT Diameter 2.0 cm LV Ejection Fraction 2D Teich 42.6 % LV Ejection Fraction MOD 2C 67.9 % LV Ejection Fraction 2C AL 69.4 % LA Diameter 3.6 cm Aorta at Sinotubular Diameter 2.9 cm M-MODE Aortic Annulus Diameter 2.8 cm LA Ao Ratio MM 1.2 MV E Point Septal Separation 0.9 cm FINDINGS Left Ventricle Normal left ventricular cavity size. Mildly increased left ventricle wall thickness. Normal left ventricular systolic function. Left ventricular ejection fraction is estimated at 60- 65 %. No regional wall motion abnormality. Right Ventricle Mildly dilated right ventricle with probably mildly decreased right ventricle systolic function. Right Atrium Right atrium not well visualized. Left Atrium Left atrium not well visualized. Mitral Valve Mitral valve not well visualized. Aortic Valve Aortic valve not well visualized. Tricuspid Valve Tricuspid valve not well visualized. Pulmonic Valve Pulmonic valve not well visualized. Pericardium No pericardial effusion. Aorta Aorta not well visualized. Probably normal sized aortic root. CONCLUSIONS 1. This is a technically difficult study. Ultrasound enhancing agent Optison was used per protocol. 2. Normal left ventricular cavity size. Normal left ventricular systolic function. Left ventricular ejection fraction is estimated at 60-65 %. No regional wall motion abnormality. 3. Mildly dilated right ventricle with probably mildly decreased right ventricle systolic function. Maggie Squires MD (Electronically Signed) Final Date: 31 May 2021 10:06 S
--- NOTE | 2021-05-30 14:42 | PC.NURSE ---
Patient refused orthostatic vitals at this time and asked for us to come back later to do them.
[2021-05-30] MEDS: amiodarone 200 mg Tablet PO ×2 (15:02→22:35)
--- NOTE | 2021-05-30 15:14 | XR_ITS ---
WS: [id number] ABDOMEN SERIES ACUTE Supine and upright views of the abdomen with AP or PA chest CLINICAL INFORMATION: distention, hernia assess for obstruction COMPARISON: None. FINDINGS: Heart: Cardiomegaly. Tortuous thoracic aorta. Enlarged LEFT ventricle. Lungs: Elevation RIGHT hemidiaphragm. Chronic emphysematous changes. 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 RIGHT hilar lymphadenopathy . Prior cholecystectomy. Pedicle screw fixation L4-L5. RIGHT TIN. Normal bowel gas pattern. No evidence of high-grade obstruction. Persistent air within the colon. XR/XR acute abdomen series [id number] IMPRESSION: 1. No evidence of high-grade small or large bowel destruction today. 2. Persistent air within the colon. 3. Cardiomegaly. 4. 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 RIGHT hilar lymphadenopathy.
[2021-05-30] MEDS: perflutren protein-a microsphr 0.22 mg/mL SDV 3 mL IV (16:18)
--- NOTE | 2021-05-30 16:38 | PM.PN ---
Subjective Subjective: He states he does not feel quite well. Bothered by pain in his legs. Also abdominal distention with distention of his hernia. Poor appetite. Vitals/I&O/Wt Last Vital Signs Temp 97.6 F 05/30/21 07:07 Pulse 99 05/30/21 15:45 Resp 25 H 05/30/21 15:45 BP 141/81 05/30/21 15:45 Pulse Ox 94 05/30/21 15:45 05/30/21 05/30/21 05/30/21 06:59 14:59 22:59 Intake Total 50 / 4791.787 3878.725 / 1255.725 50 / 1305.725 Output Total 300 / 2200 Balance -250 / -748.878 8190.725 / 1255.725 50 / 1305.725 Weight last 48 hrs Weight 84.368 kg Physical Exam Const: COMMON NORMALS: patient oriented x3 GENERAL APPEARANCE: disheveled and frail appearing HENMT: COMMON NORMALS: oropharynx normal Neck/C-Spine: COMMON NORMALS: no JVD Resp: COMMON NORMALS: normal respiratory effort and clear to auscultation bilaterally AUSCULTATION: clear to auscultation bilaterally Cardio: COMMON NORMALS: no JVD, regular rhythm, S1 normal heart sound present, S2 normal heart sound present and No murmurs present (Cardio) RHYTHM: regular rhythm HEART SOUNDS: S1 normal heart sound present and S2 normal heart sound present GI: COMMON NORMALS: Normal to inspection, nondistended, normoactive bowel sounds present, Soft to palpation and non-tender INSPECTION: Yes abdominal distension PALPATION: Yes Soft to palpation OTHER: L large paraumbilical hernia hwich he states he is always distended, but currently possibly more so Extremity: COMMON NORMALS: no joint enlargement GENERAL: Yes edema (2+) OTHER: Bilateral stasis changes below knees, some cracking/dry skin, few eschar. Erythema to above mid barger bilaterally. Neuro: COMMON NORMALS: patient oriented x3 and moves all extremities Skin: COMMON NORMALS: no rashes or lesions noted GENERAL SKIN EXAM: no rashes or lesions noted Urinary Catheter Management: Lewis: Cath Placed During This Visit: yes Reason for Continuing Indwelling Catheter: Accurate Measurement of Urinary Output in Critically Ill Patients Urinary Catheter Date of Insertion: 05/28/21 Urinary Catheter Time of Insertion: 21:56 Data : 05/29/21 02:10 05/29/21 02:10 A&P Assessment and plan (1) Abdominal discomfort: Abdominal distention. Requested abdominal series. He feels his hernia is always distended, but currently more so. Denies eructation. No vomiting. Has maintained minimal oral intake. Will not change diet for now but will reassess. Status: Acute (2) Fall: Pain of left barger after fall, noted localized swelling over the barger. Will assess with tibia-fibula x-ray. Echo had been requested. Check orthostatic vitals. Status: Acute (3) Acute kidney injury: Improving. Repeat chemistries. Status: Acute (4) Atrial fibrillation: Heart rate is now better. Stop amnio drip. Start p.o. amnio. Request TTE. Status: Chronic (5) Acute hyponatremia: Liberalize sodium intake. Recheck chemistries. Status: Acute (6) Hypertension: Status: Chronic Qualifiers: Hypertension type: primary hypertension Qualified Code(s): I10 - Essential (primary) hypertension (7) COPD (chronic obstructive pulmonary disease): Status: Chronic Qualifiers: COPD type: COPD with acute exacerbation Qualified Code(s): J44.1 - Chronic obstructive pulmonary disease with (acute) exacerbation (8) Coronary artery disease: Status: Chronic Qualifiers: Coronary Disease-Associated Artery/Lesion type: [place] artery [place] vs. transplanted heart: [place] heart Associated angina: without angina Qualified Code(s): I25.10 - Atherosclerotic heart disease of [place] coronary artery without angina pectoris (9) Chronic anticoagulation: Status: Acute Plan Leukocytosis No obvious infectious process Possibly reactive Continue Zosyn for possible aspiration Repeat blood counts. RLL Pulmonary nodule - Large Likely malignancy. Follow-up with pulmonology as per original intention. Chronic hypoxemic respiratory failure -History of COVID-19 pneumonia, right-sided heart failure, COPD History of CAD status post recent PTCA -On Plavix, statin, Eliquis resumed -Baseline troponin 47, 6-hour 39.52, delta -7.48 COPD Congestive heart failure Left or right-sided heart failure History of bilateral extremity cellulitis, bilateral lower extremity erythema likely due to stasis. Monitor for changes suggestive of infection or signs of sepsis. Recheck CBC. Hypertension Possible aspiration, continue Zosyn Attestations Medical Necessity Statement*: Continue admission for optimization of control of atrial fibrillation with RVR, assessment of abdominal distention and discomfort with poor oral intake at risk of dehydration, nutrition, additional imaging assessment of left lower extremity after fall. Coding Level of Care Code Acute Health Physicist for Chg Fwd Diagnoses Fall W19.XXXA Acute kidney injury N17.9 Acute hyponatremia E87.1 Hypertension I10 Hypertension type: primary hypertension COPD (chronic obstructive pulmonary disease) J44.1 COPD type: COPD with acute exacerbation Atrial fibrillation I48.91 Coronary artery disease I25.10 Coronary Disease-Associated Artery/Lesion type: [place] artery [place] vs. transplanted heart: [place] heart Associated angina: without angina Chronic anticoagulation Z79.01 Abdominal discomfort R10.9
--- NOTE | 2021-05-30 16:44 | XRR_ITS ---
PROCEDURE INFORMATION: Exam: XR Left Tibia and Fibula Exam date and time: 05/30/2021 4:44 PM Age: 75 years old Clinical indication: Pain; Left; Patient HX: History--rash on lt lower leg; Additional info: Pain after fall TECHNIQUE: Imaging protocol: XR Left tibia and fibula. Views: 2 views. COMPARISON: [place] [id number] 04/25/2021 5:31 PM FINDINGS: Bones/joints: Normal. Soft tissues: Normal. Vasculature: Scattered vascular calcifications. XR/XR tibia fibula LT 2V [id number] IMPRESSION: No acute findings.
--- NOTE | 2021-05-30 18:08 | PC.NURSE ---
ate dessert only
--- NOTE | 2021-05-30 19:46 | PC.NURSE ---
Went to room to do first rounding patient found in bed with feces all over. States I need my sons number to call and I can't find it. Also stated that I know this looks like I shit but its pudding I dropped. Oriented patient that he was in the hospital and patient stated that he didn't know that. Phone call to nurses station received shortly after was patient requesting someone to find his sons number and patient was still unaware that he was in the hospital. Will continue to monitor and re-orient.
[2021-05-30] MEDS: trazodone 100 mg Tablet PO (22:36)
[2021-05-31] VITALS (12 sets, daily range): BP systolic 112–137; BP diastolic 70–98; PULSE 70–130; RESP 16–27; TEMP 35.7–36.8; O2SAT 92–100
[2021-05-31] MEDS: LORazepam 0.5 mg Tablet 0.25 MG PO ×2 (00:26→09:05)
[2021-05-31] MEDS: metoprolol tartrate 1 mg/1 mL SDV 5 mL 5 MG IVP (01:24)
[2021-05-31 03:38] LABS: Basophils # 0.1 10^3/uL (0.0-0.1); Basophils % 0.5 %; Eosinophils # 0.2 10^3/uL (0.0-0.8); Eosinophils % 0.8 %; Hematocrit 39.2 % (42.0-52.0); Hemoglobin 12.5 g/dL (11.7-16.6); Lymphocytes # 2.8 10^3/uL (0.8-4.8); Lymphocytes % 15.1 %; Mean Corpuscular HGB Conc 31.9 g/dL (30.0-36.0); Mean Corpuscular Hemoglobin 32.5 pg (28.0-34.0); Mean Corpuscular Volume 101.8 fl (80-94); Mean Platelet Volume 10.1 fL (7.4-10.4); Monocytes # 1.5 10^3/uL (0.2-0.9); Monocytes % 8.2 %; Neutrophils # 13.58 10^3/uL (1.8-7.7); Neutrophils % 73.2 %; Nucleated Red Blood Cells % 0 %; Platelet Count 255 10^3/cmm (130-400); Red Blood Count 3.85 10^6/uL (4.1-5.3); Red Cell Distribution Width 14.6 % (12.1-15.1); White Blood Count 18.6 10^3/uL (4.0-10.0)
[2021-05-31 03:55] LABS: Alanine Aminotransferase 40 U/L (0-41); Albumin Level 2.6 g/dL (3.5-5.2); Alkaline Phosphatase 144 IU/L (40-130); Aspartate Amino Transferase 73 U/L (0-40); Blood Urea Nitrogen 24 mg/dL (8-23); Calcium 8.2 mg/dL (8.5-10.5); Carbon Dioxide 30 mmol/L (22-29); Chloride 93 mmol/L (98-107); Globulin 5.5 g/dL (1.3-4.6); Glucose 121 mg/dL (65-115); Osmolality Calculated 277 mOsm/kg (285-295); Sodium 131 mmol/L (136-145); Total Bilirubin 0.5 mg/dL (0.15-1.2); Total Protein 8.1 g/dL (6.6-8.7)
[2021-05-31 04:01] LABS: Anion Gap 12.1 (5-19); Potassium 4.1 mmol/L (3.5-5.1)
[2021-05-31] MEDS: midodrine 5 mg TABLET 10 MG PO ×3 (05:24→22:37)
[2021-05-31] MEDS: piperacillin-tazobactam 3.375 GM in sodium chloride 0.9% (plus) 50 ML IV ×3 (05:25→22:36)
[2021-05-31] MEDS: dilTIAZem 60 mg Tablet PO ×4 (05:25→22:37)
--- NOTE | 2021-05-31 06:33 | PC.NURSE ---
Frequent safety and comfort rounds continue. Orders and/or nursing care completed as indicated. Patient monitored for response to intervention and treatment(s). Education provided includes leaving lines alone and using callbell instead of yelling. Patient and/or market survey representative is confused and does not state understanding. Will continue to monitor.
--- NOTE | 2021-05-31 08:54 | PC.CHAP ---
Pastoral Care Encounter/Spiritual Assessment Type of Contact [] Declined corporate learning consultant visit [] Patient/Family/Request visit [] Outpatient visit [] Follow-up visit [] Physician referral [] Code/Alert [x] Routine visit [] Staff referral [] Actively dying [] Patient sleeping [] Family support [] [] Out of room [] Palliative care [] [] Receiving care in room [] Pre-surgical visit [] Trauma [] Long length of stay [] ICU visit [] Other: Relational/Emotional Strength [] Patient feels connected with others/family/visitors/staff [x] Distress [] Loneliness/isolation [] Abandonment Spirituality of Patient [x] Person of Karen [] Attends Faith of their Karen [x] Believes in Prayer [] Reads Bible or Islam materials [] There are Spiritual issues to be addressed Gas Scrubber Operator Interventions [x] Prayer [x] Active listening [x] Non-anxious presence [x] Spiritual/emotional support [] Crisis/trauma care [] Spiritual counseling [] Bereavement support [] Provided bereavement packet [] Provided Bible/devotional materials [] Provided toy/stuffed animal, coloring book to patient or family member [] Provided Communion [] Anointing/[place] [] Salvation [] Completed spiritual assessment [] Other: Impact on Illness or Injury [] Angry [] Fearful [] Anxious [] Often cries [] Exhaustion [] Unable to work [] Unable to attend buddhism [] Unable to walk/stand [] Unable to read [] Unable to drive [] Unable to eat/drink [] Unable to sleep [] Unable to be with family [] Patient intubated [x] Other: Confused Summary had visited with Pt about three weeks ago when he was in hospital. He was released home and has now returned. Pt was concerned about his son. Believed he was in hospital a couple of door down and wanted to speak with him. examined census and did not locate the son. told Pt I would check at the nurses station. went to nurses station to ensure son was not in hospital and let the nurses know Pt wanted to speak with son. Head nurse told Pt is confused and had a very difficult night. returned to Pt and assured him his son was fine and he was home. Time spent with patient 15m
[2021-05-31] MEDS: zinc gluconate 50 mg Tablet PO (09:04)
[2021-05-31] MEDS: amiodarone 200 mg Tablet PO ×2 (09:04→22:37)
[2021-05-31] MEDS: cholecalciferol (vitamin D3) 1,000 unit Tablet 2000 UNIT PO (09:04)
[2021-05-31] MEDS: apixaban 5 mg Tablet PO ×2 (09:04→17:34)
[2021-05-31] MEDS: pantoprazole DR 40 mg Tablet PO (09:05)
[2021-05-31] MEDS: clopidogrel 75 mg Tablet PO (09:05)
[2021-05-31] MEDS: metoprolol succinate ER (24 HR) 25 mg Tablet 12.5 MG PO ×2 (09:06→17:33)
[2021-05-31] MEDS: folic acid 1 mg Tablet PO (09:06)
[2021-05-31 09:09] LABS: Erythrocyte Sedimentation Rate 82 mm/hr (0-10)
[2021-05-31 09:16] LABS: C Reactive Protein 27.7 mg/L (0.0-4.9)
--- NOTE | 2021-05-31 09:23 | PC.SOCIAL ---
Pg 2 IMM Explained to pt Pg 2 IMM. No questions voiced.Provided pt a copy. Initialed, dated, & timed a copy & placed in chart.
--- NOTE | 2021-05-31 10:03 | PC.NURSE ---
Gave patient a bed bath.
[2021-05-31] MEDS: FUROsemide 10 mg/mL SDV 4mL 40 MG IVP (11:20)
--- NOTE | 2021-05-31 16:27 | PM.PN ---
Subjective Subjective: Abdomen is slightly less distended, but remains distended, tender. Had a liquid bowel movement x1. No vomiting. Less erythema in his legs when reclined/with elevation. Today had a full shower. Vitals/I&O/Wt Last Vital Signs Temp 96.3 F L 05/31/21 11:00 Pulse 70 05/31/21 15:51 Resp 18 05/31/21 15:51 BP 112/70 05/31/21 15:00 Pulse Ox 100 05/31/21 15:51 05/31/21 05/31/21 05/31/21 06:59 14:59 22:59 Intake Total 90 / 1435.725 50 / 50 Output Total 1750 / 4350 1000 / 1000 Balance -1660 / -2914.275 -950 / -950 Physical Exam Const: COMMON NORMALS: patient oriented x3 GENERAL APPEARANCE: frail appearing HENMT: COMMON NORMALS: oropharynx normal Neck/C-Spine: COMMON NORMALS: no JVD Resp: COMMON NORMALS: normal respiratory effort and clear to auscultation bilaterally AUSCULTATION: clear to auscultation bilaterally Cardio: COMMON NORMALS: no JVD, regular rhythm, S1 normal heart sound present, S2 normal heart sound present and No murmurs present (Cardio) RHYTHM: regular rhythm HEART SOUNDS: S1 normal heart sound present and S2 normal heart sound present GI: COMMON NORMALS: Normal to inspection, nondistended, normoactive bowel sounds present and Soft to palpation INSPECTION: Yes abdominal distension PALPATION: Yes Soft to palpation and Yes Tenderness to palpation present (GI) OTHER: L large paraumbilical hernia Extremity: COMMON NORMALS: no joint enlargement GENERAL: Yes edema (2+) OTHER: Bilateral stasis changes below knees, some cracking, few eschar. Dry skin better after shower. Much less erythema to above mid barger bilaterally w legs elevated. Neuro: COMMON NORMALS: patient oriented x3 and moves all extremities Skin: COMMON NORMALS: no rashes or lesions noted GENERAL SKIN EXAM: no rashes or lesions noted Urinary Catheter Management: Lewis: Cath Placed During This Visit: yes Reason for Continuing Indwelling Catheter: Acute Urinary Retention or Obstruction Urinary Catheter Date of Insertion: 05/28/21 Urinary Catheter Time of Insertion: 21:56 Data : 05/31/21 03:09 05/31/21 03:09 A&P Assessment and plan (1) Abdominal discomfort: Discussed with him results of the x-ray. No evidence of high-grade small or large bowel obstruction. Persistent air within the colon. Possible partial bowel obstruction. Discussed with him we will change diet to clear liquids for now. Continue as tolerating. Currently not vomiting, no need for NGT. Reassess. Status: Acute (2) Fall: Pain of left barger after fall, noted localized swelling over the barger. No fracture on tibia-fibula x-ray. Echo with normal LV systolic function, EF 60-65%. No R WMA. Mildly dilated right ventricle with probably mild decreased right ventricle systolic function. Check orthostatic vitals. Status: Acute (3) Acute kidney injury: Continues to improve. Repeat chemistries. Status: Acute (4) Atrial fibrillation: Transitioned to p.o. amio now off drip. TTE as above. Eliquis Status: Chronic (5) Acute hyponatremia: Slightly better with liberalized sodium intake. Although poor oral intake currently. Recheck chemistries. Status: Acute (6) Hypertension: Status: Chronic Qualifiers: Hypertension type: primary hypertension Qualified Code(s): I10 - Essential (primary) hypertension (7) COPD (chronic obstructive pulmonary disease): Status: Chronic Qualifiers: COPD type: COPD with acute exacerbation Qualified Code(s): J44.1 - Chronic obstructive pulmonary disease with (acute) exacerbation (8) Coronary artery disease: Status: Chronic Qualifiers: Coronary Disease-Associated Artery/Lesion type: [place] artery [place] vs. transplanted heart: [place] heart Associated angina: without angina Qualified Code(s): I25.10 - Atherosclerotic heart disease of [place] coronary artery without angina pectoris (9) Chronic anticoagulation: Status: Acute Plan Leukocytosis No obvious infectious process Possibly reactive Continue Zosyn for possible aspiration Repeat blood counts. Monitor abdominal symptoms with pain, distention. If worsening consider CT. RLL Pulmonary nodule - Large Likely malignancy. Follow-up with pulmonology as per original intention. Chronic hypoxemic respiratory failure -History of COVID-19 pneumonia, right-sided heart failure, COPD History of CAD status post recent PTCA -On Plavix, statin, Eliquis resumed -Baseline troponin 47, 6-hour 39.52, delta -7.48 COPD Congestive heart failure: Possible chronic right side congestive heart failure with some decreased RV function, peripheral edema. Continue IV Lasix. Monitor blood pressures. History of bilateral extremity cellulitis, bilateral lower extremity erythema likely due to stasis. Monitor for changes suggestive of infection or signs of sepsis. Recheck CBC. Hypertension Possible aspiration, continue Zosyn Attestations Medical Necessity Statement*: Continue admission for assessment management of abdominal distention, pain, possible partial bowel obstruction. Coding Level of Care Code Acute Statement Clerks Manager for [facility] Fwd Diagnoses Abdominal discomfort R10.9 Fall W19.XXXA Acute kidney injury N17.9 Atrial fibrillation I48.91 Acute hyponatremia E87.1 Hypertension I10 Hypertension type: primary hypertension COPD (chronic obstructive pulmonary disease) J44.1 COPD type: COPD with acute exacerbation Coronary artery disease I25.10 Coronary Disease-Associated Artery/Lesion type: [place] artery [place] vs. transplanted heart: [place] heart Associated angina: without angina Chronic anticoagulation Z79.01
[2021-05-31] MEDS: HYDROcodone-acetaminophen 5-325 mg Tablet 1 TAB PO (17:34)
--- NOTE | 2021-05-31 17:57 | PC.NURSE ---
Shift Note Frequent safety and comfort rounds continue. Orders and/or nursing care completed as indicated. Patient monitored for response to intervention and treatment(s). Education provided includes need to call for assist with activity. Patient and/or customer assistance representative needs reinforcement with all teaching. Will continue to monitor.
[2021-05-31] MEDS: trazodone 100 mg Tablet PO (22:37)
[2021-06-01] VITALS (8 sets, daily range): BP systolic 124–133; BP diastolic 73–84; PULSE 71–112; RESP 16–28; TEMP 36.7; O2SAT 91–100
[2021-06-01 04:03] LABS: Basophils # 0.1 10^3/uL (0.0-0.1); Basophils % 0.4 %; Eosinophils # 0.3 10^3/uL (0.0-0.8); Eosinophils % 1.8 %; Hemoglobin 12.5 g/dL (11.7-16.6); Lymphocytes # 2.7 10^3/uL (0.8-4.8); Lymphocytes % 19.5 %; Mean Corpuscular HGB Conc 32.1 g/dL (30.0-36.0); Mean Corpuscular Hemoglobin 32.5 pg (28.0-34.0); Mean Corpuscular Volume 101.3 fl (80-94); Mean Platelet Volume 10.4 fL (7.4-10.4); Monocytes # 1.3 10^3/uL (0.2-0.9); Neutrophils # 9.38 10^3/uL (1.8-7.7); Neutrophils % 67.8 %; Nucleated Red Blood Cells % 0 %; Platelet Count 221 10^3/cmm (130-400); Red Blood Count 3.85 10^6/uL (4.1-5.3); Red Cell Distribution Width 14.7 % (12.1-15.1); White Blood Count 13.9 10^3/uL (4.0-10.0)
[2021-06-01 04:19] LABS: Alanine Aminotransferase 41 U/L (0-41); Albumin Level 2.5 g/dL (3.5-5.2); Alkaline Phosphatase 126 IU/L (40-130); Blood Urea Nitrogen 23 mg/dL (8-23); Calcium 8.1 mg/dL (8.5-10.5); Carbon Dioxide 30 mmol/L (22-29); Chloride 95 mmol/L (98-107); Globulin 5.7 g/dL (1.3-4.6); Glucose 100 mg/dL (65-115); Osmolality Calculated 280 mOsm/kg (285-295); Sodium 133 mmol/L (136-145); Total Bilirubin 0.5 mg/dL (0.15-1.2); Total Protein 8.2 g/dL (6.6-8.7)
[2021-06-01 04:21] LABS: Anion Gap 12.6 (5-19); Aspartate Amino Transferase 84 U/L (0-40); Potassium 4.6 mmol/L (3.5-5.1)
[2021-06-01] MEDS: piperacillin-tazobactam 3.375 GM in sodium chloride 0.9% (plus) 50 ML IV ×2 (04:34→12:40)
[2021-06-01] MEDS: dilTIAZem 60 mg Tablet PO ×2 (04:34→10:39)
[2021-06-01] MEDS: midodrine 5 mg TABLET 10 MG PO ×2 (04:34→12:40)
--- NOTE | 2021-06-01 05:33 | PC.NURSE ---
Shift Note Frequent safety and comfort rounds continue. Orders and/or nursing care completed as indicated. Patient monitored for response to intervention and treatment(s). Education provided includes fluid restriction. Patient and/or medicare sales representative is angry and said hes thirsty.Patient slept tonight for about 10 hours and woke up thinking that he did not. Will continue to monitor.
--- NOTE | 2021-06-01 07:10 | PC.NURSE ---
recieved report from sorter laundry articles. reviewed poc. no needs identified at this time.
[2021-06-01] MEDS: cholecalciferol (vitamin D3) 1,000 unit Tablet 2000 UNIT PO (08:06)
[2021-06-01] MEDS: amiodarone 200 mg Tablet PO (08:06)
[2021-06-01] MEDS: zinc gluconate 50 mg Tablet PO (08:06)
[2021-06-01] MEDS: apixaban 5 mg Tablet PO (08:09)
[2021-06-01] MEDS: pantoprazole DR 40 mg Tablet PO (08:09)
[2021-06-01] MEDS: clopidogrel 75 mg Tablet PO (08:09)
[2021-06-01] MEDS: folic acid 1 mg Tablet PO (08:09)
[2021-06-01] MEDS: metoprolol succinate ER (24 HR) 25 mg Tablet 12.5 MG PO (08:09)
[2021-06-01] MEDS: FUROsemide 10 mg/mL SDV 4mL 40 MG IVP (08:10)
[2021-06-01] MEDS: HYDROcodone-acetaminophen 5-325 mg Tablet 1 TAB PO (12:39)
[2021-06-01 15:13] LABS: SARS Covid-2 Antigen Negative (Negative)
--- NOTE | 2021-06-01 16:41 | PC.NURSE ---
report called to ana maría at [facility]. Reviewed pts stay, treatments and orders. No further questions or concerns from receiving facility. rx sent to pharmacy. pts atkins catheter and piv removed before departure. Pt left via wheelchair to medical transport vehicle. Patient dressed in his own sweats and shirt. no other belongings at bedside.
--- NOTE | 2021-06-01 22:28 | PM.DCS ---
Discharge Providers Date of Admission: 05/28/21 21:47 Date of Discharge: June 01, 2021 Attending Provider at Admission: Debra Mattson Attending Provider at Discharge: Pola Valerio Diagnoses at Discharge Discharge Diagnosis (1) Abdominal discomfort: Status: Acute (2) Fall: Status: Acute (3) Acute kidney injury: Status: Acute (4) Atrial fibrillation: Status: Chronic (5) Acute hyponatremia: Status: Acute (6) Hypertension: Status: Chronic Qualifiers: Hypertension type: primary hypertension Qualified Code(s): I10 - Essential (primary) hypertension (7) COPD (chronic obstructive pulmonary disease): Status: Chronic Qualifiers: COPD type: COPD with acute exacerbation Qualified Code(s): J44.1 - Chronic obstructive pulmonary disease with (acute) exacerbation (8) Coronary artery disease: Status: Chronic Qualifiers: Coronary Disease-Associated Artery/Lesion type: [place] artery [place] vs. 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 No intracranial bleed or cervical fracture noted on CT images. With some tenderness, swelling of left barger, no fracture noted on tib-fib x-ray. With possible aspiration pneumonia was treated with Zosyn. Atrial fibrillation with RVR during hospitalization associated also with hypotension treated with resumed on lower doses of diltiazem and metoprolol. Continues on amiodarone by mouth. Heart rates now better controlled, remaining 90s-low 100s. On Eliquis. Mental status has improved, remained alert, oriented. Received Lasix for fluid overload/diastolic CHF exacerbation. During hospitalization also complaining of some abdominal distention, with chronic surgical site periumbilical hernia, with some mild generalized tenderness, no signs of sepsis, peritonitis, abdominal x-ray series with no evidence of high-grade small or large bowel obstruction. Persistent air within the colon. Cardiomegaly incidentally noted. Also incidentally noted right lower lobe mass measuring 4.2 cm unchanged since PET/CT May 28, 2021 compatible with neoplasm. Right hilar adenopathy. Distention is improving and he is having bowel movements. Distention and abdominal discomfort improved with bowel rest with clear liquids. He is asked to trial lactose-free diet for 2 weeks as he drinks quite a bit of milk, and lactose tolerance could contribute to bloating and soft stools. He otherwise reports he is feeling at his baseline, and so is discharged back for [facility]. He is asked to follow-up with pulmonology in office with regards to suspected lung malignancy. He transiently mentioned hospice, but did state that would pursue additional evaluation and possibly treatment of the suspected cancer. Acute kidney injury on presentation, creatinine 1.6, resolved. Please follow-up renal function and sodium after mild hyponatremia. Physical Exam Const: COMMON NORMALS: patient oriented x3 GENERAL APPEARANCE: frail appearing HENMT: COMMON NORMALS: oropharynx normal Neck/C-Spine: COMMON NORMALS: no JVD Resp: COMMON NORMALS: normal respiratory effort and clear to auscultation bilaterally AUSCULTATION: clear to auscultation bilaterally Cardio: COMMON NORMALS: no JVD, regular rhythm, S1 normal heart sound present, S2 normal heart sound present and No murmurs present (Cardio) RHYTHM: regular rhythm HEART SOUNDS: S1 normal heart sound present and S2 normal heart sound present GI: COMMON NORMALS: Normal to inspection, nondistended, normoactive bowel sounds present and Soft to palpation INSPECTION: Yes abdominal distension (Improving distention, soft) PALPATION: Yes Soft to palpation and Yes Tenderness to palpation present (GI) OTHER: L large paraumbilical hernia Extremity: COMMON NORMALS: no joint enlargement GENERAL: Yes edema (2+) OTHER: Bilateral stasis changes below knees, some cracking, few eschar. Dry skin better after shower. Much less erythema to above mid barger bilaterally w legs elevated. Neuro: COMMON NORMALS: patient oriented x3 and moves all extremities Skin: COMMON NORMALS: no rashes or lesions noted GENERAL SKIN EXAM: no rashes or lesions noted Urinary Catheter Management: Lewis: Cath Placed During This Visit: yes, but has since been removed by the nurse Reason for Continuing Indwelling Catheter: Decision to DC Catheter Urinary Catheter Date of Insertion: 05/28/21 Urinary Catheter Time of Insertion: 21:56 Date Urinary Catheter Removed: 06/01/21 Time Urinary Catheter Discontinued: 15:03 Discharge Data Studies Completed and Pending Completed Studies During Hospitalization Category Date Time Status CT cervical spin wo con* [id number] Urgent Cat Scan 05/28/21 19:[address] head wo con* [id number] Urgent Cat Scan 05/28/21 19:10 Completed XR acute abdomen series [id number] Routine Exams 05/30/21 15:14 Completed XR chest 1V [id number] Stat Exams 05/28/21 20:55 Completed XR tibia fibula LT 2V [id number] Routine Exams 05/30/21 16:44 Completed CV echo lmt wo/w contras [id number] Routine Ultrasound 05/30/21 14:22 Completed Radiology Impressions Head CT 05/28/21 19:10 IMPRESSION: Negative for acute intracranial abnormality. Cervical Spine CT 05/28/21 19:16 IMPRESSION: 1. Negative for acute cervical spine injury. 2. Increased superior mediastinal lymphadenopathy. Chest X-Ray 05/28/21 20:55 IMPRESSION: 1. Large right lung base pulmonary nodules suspicious for malignancy. 2. No focal acute pulmonary disease. Chest/Abdomen X-ray 05/30/21 15:14 IMPRESSION: 1. No evidence of high-grade small or large bowel destruction today. 2. Persistent air within the colon. 3. Cardiomegaly. 4. 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 RIGHT hilar lymphadenopathy. Tibia/Fibula X-Ray 05/30/21 16:44 IMPRESSION: No acute findings. Laboratory Results WBC 13.9 10^3/uL (4.0-10.0) H 06/01/21 03:27 RBC 3.85 10^6/uL (4.1-5.3) L 06/01/21 03:27 Hgb 12.5 g/dL (11.7-16.6) 06/01/21 03:27 Hct 39.0 % (42.0-52.0) L 06/01/21 03:27 MCV 101.3 fl (80-94) H 06/01/21 03:27 MCH 32.5 pg (28.0-34.0) 06/01/21 03:27 MCHC 32.1 g/dL (30.0-36.0) 06/01/21 03:27 RDW 14.7 % (12.1-15.1) 06/01/21 03:27 Plt Count 221 10^3/cmm (130-400) 06/01/21 03:27 MPV 10.4 fL (7.4-10.4) 06/01/21 03:27 Neut % (Auto) 67.8 % 06/01/21 03:27 Lymph % (Auto) 19.5 % 06/01/21 03:27 [place] % (Auto) 9.0 % 06/01/21 03:27 Eos % (Auto) 1.8 % 06/01/21 03:27 Baso % (Auto) 0.4 % 06/01/21 03:27 Neut # (Auto) 9.38 10^3/uL (1.8-7.7) H 06/01/21 03:27 Lymph # (Auto) 2.7 10^3/uL (0.8-4.8) 06/01/21 03:27 [place] # (Auto) 1.3 10^3/uL (0.2-0.9) H 06/01/21 03:27 Eos # (Auto) 0.3 10^3/uL (0.0-0.8) 06/01/21 03:27 Baso # (Auto) 0.1 10^3/uL (0.0-0.1) 06/01/21 03:27 Nucleated RBC % (auto) 0 % 06/01/21 03:27 Nucleated RBCs # 0.0 /100WBC 06/01/21 03:27 ESR 82 mm/hr (0-10) H 05/31/21 03:09 PT 20.70 SECONDS (12.1-14.9) H 05/28/21 19:17 INR 1.74 (0.8-1.2) H 05/28/21 19:17 APTT 38.9 SECONDS (23.9-36.7) H 05/28/21 19:17 Sodium 133 mmol/L (136-145) L 06/01/21 03:27 Potassium 4.6 mmol/L (3.5-5.1) 06/01/21 03:27 Chloride 95 mmol/L (98-107) L 06/01/21 03:27 Carbon Dioxide 30 mmol/L (22-29) H 06/01/21 03:27 Anion Gap 12.6 (5-19) 06/01/21 03:27 BUN 23 mg/dL (8-23) 06/01/21 03:27 Creatinine 1.0 mg/dL (0.7-1.2) 06/01/21 03:27 GFR Calculation Not Reportable 06/01/21 03:27 Glucose 100 mg/dL (65-115) 06/01/21 03:27 Calculated Osmolality 280 mOsm/kg (285-295) L 06/01/21 03:27 Calcium 8.1 mg/dL (8.5-10.5) L 06/01/21 03:27 Magnesium 1.9 mg/dL (1.7-2.3) 05/29/21 18:23 Total Bilirubin 0.5 mg/dL (0.15-1.2) 06/01/21 03:27 AST 84 U/L (0-40) H 06/01/21 03:27 ALT 41 U/L (0-41) 06/01/21 03:27 Alkaline Phosphatase 126 IU/L (40-130) 06/01/21 03:27 Troponin T Baseline 47 ng/L (0-15) H 05/28/21 19:17 Troponin T 120 Minute 42.45 ng/L (0-15) H 05/28/21 21:30 Delta Troponin T -4.55 ABS# (0-10) L 05/28/21 21:30 Troponin T Hi Sens 6Hr 39.52 ng/L (0-15) H 05/29/21 02:10 Troponin T Hi Sens 6Hr Delta -7.48 ng/L (0-12) L 05/29/21 02:10 C-Reactive Protein 27.7 mg/L (0.0-4.9) H 05/31/21 03:09 Total Protein 8.2 g/dL (6.6-8.7) 06/01/21 03:27 Albumin 2.5 g/dL (3.5-5.2) L 06/01/21 03:27 Globulin 5.7 g/dL (1.3-4.6) H 06/01/21 03:27 Procalcitonin 0.20 ng/mL (0-0.5) 05/29/21 02:10 Urine Color Yellow (Yellow) 05/28/21 21:48 Urine Appearance Clear (CLEAR) 05/28/21 21:48 Urine pH 5 (5-7) 05/28/21 21:48 Ur Specific [place] 1.010 (1.005-1.030) 05/28/21 21:48 Urine Protein Neg (Negative) 05/28/21 21:48 Urine Glucose (UA) Norm (Normal) 05/28/21 21:48 Urine Ketones Negative (Negative) 05/28/21 21:48 Urine Blood Neg (Negative) 05/28/21 21:48 Urine Nitrate Negative (Negative) 05/28/21 21:48 Urine Bilirubin Neg (Negative) 05/28/21 21:48 Urine Urobilinogen Norm mg/dL (Negative) 05/28/21 21:48 Ur Leukocyte Esterase Negative (Negative) 05/28/21 21:48 SARS-CoV-2 Ag (Rapid) Negative (Negative) 06/01/21 14:00 Vitals Last Vital Signs Temp 98.1 F 06/01/21 04:00 Pulse 87 06/01/21 15:57 Resp 25 H 06/01/21 15:57 BP 132/73 06/01/21 15:57 Pulse Ox 91 06/01/21 15:57 Discharge Plan Discharge Patient Disposition: Xfer SNF Condition: Fair Prescriptions: New diltiazem HCl 240 mg capsule,extended release 24hr 240 mg PO DAILY Qty: 90 0RF Pacerone 200 mg Tablet See Rx Instructions .ROUTE .COMPLEX Qty: 90 0RF Rx Instructions: 200 mg twice daily for 2 weeks, then 100 mg twice daily. metoprolol succinate 25 mg Tablet Extended Release 24 Hr 12.5 mg PO BID Qty: 90 0RF levofloxacin 750 mg tablet 750 mg PO DAILY 5 Days 0RF Continued (DME) Wheel chair with oxygen clamp See Rx Instructions .Route .MEDSUPPLY Qty: 1 0RF Rx Instructions: As directed folic acid 1 mg tablet 1 mg PO DAILY 30 Days Qty: 30 5RF fluticasone propion-salmeterol [Wixela Inhub] 500-50 mcg/dose Blister With Device 1 inh INHALATION BID 0RF albuterol sulfate [ProAir HFA] 90 mcg/actuation HFA aerosol inhaler 2 inh inhalation Q4H PRN (Reason: Shortness Of Breath) 0RF Eliquis 5 mg tablet 5 mg PO BID 0RF furosemide [Lasix] 40 mg tablet 40 mg PO BID Qty: 60 3RF Hold Instructions: Resume on 04/15/21. albuterol sulfate 2.5 mg /3 mL (0.083 %) solution for nebulization 2.5 mg inhalation Q4H PRN (Reason: Shortness Of Breath) 0RF tramadol 50 mg Tablet 50 mg PO Q6H PRN (Reason: Pain) 0RF lorazepam [Ativan] 0.5 mg Tablet 0.25 mg PO TID PRN (Reason: Anxiety) 0RF magnesium hydroxide [Milk of Magnesia] 400 mg/5 mL Suspension 30 ml PO DAILY PRN (Reason: Constipation) 0RF bisacodyl 10 mg Suppository 10 mg NE DAILY PRN (Reason: Constipation) 0RF Fleet Enema 19-7 gram/118 mL Enema 118 ml NE DAILY PRN (Reason: Constipation) 0RF oxycodone 5 mg Tablet 5 mg PO Q4H PRN (Reason: Pain) 0RF albuterol sulfate 2.5 mg /3 mL (0.083 %) solution for nebulization 0.83 mg continuous nebulization Q4-5H PRN (Reason: Wheezing) 0RF clopidogrel [Plavix] 75 mg tablet 75 mg PO DAILY 0RF trazodone 100 mg Tablet 100 mg PO BEDTIME 0RF pantoprazole [Protonix] 40 mg Tablet,Delayed Release (Dr/Ec) 40 mg PO DAILY 0RF nitroglycerin 0.4 mg Tablet, Sublingual 0.4 mg SUBLINGUAL Q5M 0RF Rx Instructions: do not exceed 3 doses per episode docusate sodium 100 mg Capsule 100 mg PO BID 0RF zinc 50 mg Tablet 50 mg PO DAILY 0RF cholecalciferol (vitamin D3) [Vitamin D3] 50 mcg (2,000 unit) Tablet 50 mcg PO DAILY 0RF Discontinued lisinopril 20 mg tablet 20 mg PO QAM 0RF Hold Instructions: Resume on 04/04/21. metoprolol tartrate 50 mg tablet 25 mg PO Q12H Qty: 60 5RF diltiazem HCl [DILT-XR] 180 mg Capsule,Ext.Rel 24h Degradable 180 mg PO DAILY 30 Days Qty: 30 3RF Discharge Orders: Discharge Order (Routine); Ordered 06/01/21 Ordered By: Pola Valerio Referrals: SNF, PCP [Other] - 4-7 days [facility] [Outside] Osvaldor,Charan Wei MD [Physician] - 4-7 days (Follow up with Dr. Cullen regarding a lung mass. The follow up appt is on June 20 at 3:00 p.m. on the second floor of the new addition to the Building. If there are any questions please call [phone]. ) Discharge Diet: As Directed and Full LIquid Discharge Activity: Increase activity as tolerated Patient Instructions: Opioid Safety Activity Restrictions/Additional Instructions: Maintain liquid diet for now due to possibility of improving partial bowel obstruction, advance slowly as tolerated. Trial of lactose-free diet for 2 weeks. With bloating, soft stools, frequent milk consumption, lactose intolerance is a possibility. Complete antibiotic course for pneumonia. Maintain aspiration precautions. Avoid medications which can lead to kidney injury. Hold lisinopril for now. Recheck renal function on Sunday or Sunday to follow-up for resolution of LATANYA, stabilization of creatinine. Reassess sodium at the same time for hyponatremia. Monitor heart rates twice daily, target less than 110 bpm for atrial fibrillation control. Continue amiodarone 200 mg twice a day for 2 weeks, then switch to 100 mg twice a day. Continue diltiazem and metoprolol at new adjusted doses which were decreased due to low blood pressures in the hospital. Adjust medication doses depending on rate control, blood pressures. Follow-up with cardiology in office. Follow-up with pulmonology regarding right lower lung mass suspicious for malignancy to pursue additional diagnosis and then referral for treatment. Continue oxygen 2 L by nasal cannula. Wean down as tolerating. Discharge Attestations Time Spent in Discharge Care*: greater than 30 min Status at Discharge: Cognitive status at discharge: cognitively intact, Behavioral status at discharge: cooperative, Quality Metrics Clinical Quality Measures [ No reported AMI, CVA or VTE this stay] Coding Level of Care Code Acute Chg FW DC note Diagnoses Abdominal discomfort R10.9 Fall W19.XXXA Acute kidney injury N17.9 Atrial fibrillation I48.91 Acute hyponatremia E87.1 Hypertension I10 Hypertension type: primary hypertension COPD (chronic obstructive pulmonary disease) J44.1 COPD type: COPD with acute exacerbation Coronary artery disease I25.10 Coronary Disease-Associated Artery/Lesion type: [place] artery [place] vs. transplanted heart: [place] heart Associated angina: without angina Chronic anticoagulation Z79.01
== END 2021-06-01 16:38 | disposition home or self-care (01) | DRG 683 ==
LOC: ER 21:47 → MEDSURG 22:07 → CSU 05-29 14:05
PROVIDERS: Family Medicine; Admitting Provider Hospitalist; Emergency Provider Emergency Medicine; Visit Provider Internal Medicine
DX: N17.9 Acute kidney failure, unspecified (principal); E87.1 Hypo-osmolality and hyponatremia; J44.1 Chronic obstructive pulmonary disease with (acute) exacerbation; I50.32 Chronic diastolic (congestive) heart failure; J96.11 Chronic respiratory failure with hypoxia; L03.116 Cellulitis of left lower limb; L03.115 Cellulitis of right lower limb; R91.8 Other nonspecific abnormal finding of lung field; I48.91 Unspecified atrial fibrillation; R10.9 Unspecified abdominal pain; Z79.01 Long term (current) use of anticoagulants; I25.10 Atherosclerotic heart disease of native coronary artery without angina pectoris; S00.83XA Contusion of other part of head, initial encounter; W19.XXXA Unspecified fall, initial encounter; Z87.891 Personal history of nicotine dependence; I95.9 Hypotension, unspecified; R55 Syncope and collapse; Z99.81 Dependence on supplemental oxygen; Z86.16 Personal history of COVID-19; Z79.02 Long term (current) use of antithrombotics/antiplatelets; D72.829 Elevated white blood cell count, unspecified; M79.662 Pain in left lower leg; K21.9 Gastro-esophageal reflux disease without esophagitis
CPT/HCPCS: 36415; 51702; 70450; 71045; 72125; 73590; 74022; 80053; 81003; 83735; 84145; 84484; 85025; 85610; 85651; 85730; 86140; 87426; 93005; 97162; 97167; 97530; 97535; 99285; C8924; J0282; J1940; J2543; J3490; J7030; J7040; J7060; Q9956